=== PATIENT | female | born 1975 | race Caucasian/White ===

== ENCOUNTER 2020-10-06 08:31 | Emergency (ER) | payer OTHER, SELFPAY ==
[2020-10-06 08:32] VITALS: BP 123/103; PULSE 89; RESP 18; TEMP 36.4; O2SAT 99; BMI 51.2
--- NOTE | 2020-10-06 08:35 | NURSING ---
NO OLD EKGS
--- NOTE | 2020-10-06 08:40 | NURSING ---
NO OLD EKGS
--- NOTE | 2020-10-06 08:58 | EKG12_ITS ---
Test Reason : CP Blood Pressure : / mmHG Vent. Rate : 083 BPM Atrial Rate : 083 BPM P-R Int : 170 ms QRS Dur : 076 ms QT Int : 374 ms P-R-T Axes : 038 015 030 degrees QTc Int : 439 ms Normal sinus rhythm with sinus arrhythmia Normal ECG Confirmed by LELAND BATRES, MARIBEL ([id number]), writer editor EVI DURHAM ([id number]) on 10/09/2020 9:23:51 AM Referred By: JAELYN Confirmed By:MARIBEL HA MD
--- NOTE | 2020-10-06 09:05 | NURSING ---
NO OLD EKGS
[2020-10-06 09:12] VITALS: O2SAT 99
[2020-10-06] MEDS: Aspirin 81 MG TAB.CHEW 324 MG PO (09:24)
[2020-10-06 09:27] LABS: Absolute Lymphocyte Count 3.03 X10^3/uL (0.83-4.51); Absolute Neutrophil Count 3.9 X10^3/uL (2.0-7.7); Basophil# 0.02 X10^3/uL; Basophil% 0.3 % (0-1); Eosinophil# 0.08 X10^3/uL; Hematocrit 41.8 % (37-47); Hemoglobin 13.6 g/dL (12.0-15.0); Lymphocyte # 3.03 X10^3/ul (4.0); Lymphocyte % 39.6 % (19-41); Mean Corp Hgb Conc 32.5 g/dL (32-36); Mean Corpuscular Hgb 29.2 pg (27.0-32.0); Mean Corpuscular Volume 89.9 fL (81-99); Mean Platelet Vol. 9.6 fl (6.2-12.0); Monocyte# 0.55 X10^3/uL; Monocyte% 7.2 % (0-10); NRBC Flagged by Analyzer 0 % (0-5); Neutrophil # 3.94 X10^3/uL (2.7-7.7); Neutrophil % 51.4 % (47-70); Platelet Count 274 K/mm3 (150-450); RBC Distribution Width CV 12.4 % (11.6-14.6); RBC Distribution Width SD 40.9 fl (35.1-43.9); Red Blood Count 4.65 M/mm3 (4.2-5.4); White Blood Count 7.7 K/mm3 (4.4-11.0)
--- NOTE | 2020-10-06 09:40 | RAD_ITS ---
STUDY: X-RAY CHEST REASON FOR EXAM: Female, 45 years old. CHEST PAIN X 3 WEEKS. PT THOUGHT IT WAS A PULLED MUSCLE BUT STATES PAIN IS WORSENING. WHILE STANDING FOR XRAY PT WAS SOB AND DIZZY. TECHNIQUE: PA and lateral views of the chest. COMPARISON: None. FINDINGS: EKG electrodes are seen. The lungs are clear and expanded. There is no demonstrated pleural abnormality. Normal size heart. Normal mediastinum and marco antonio. Normal visualized pulmonary arteries. Normal visualized aortic arch and descending thoracic aorta. Normal visualized thoracic spine. Normal visualized ribs, clavicles, and shoulders. There is no demonstrated abnormality of the visualized soft tissue structures of the upper abdomen. RAD/Chest PA and Lateral IMPRESSION: Normal x-ray examination of the chest. Electronically Signed: Maury Flanagan MD at 10:12 EST , Service support ,
[2020-10-06 09:45] LABS: Anion Gap 6 (5-15); BUN 15 mg/dL (7-18); BUN/Creat Ratio 20.2 RATIO (10-20); Calcium,Total 8.9 mg/dL (8.5-10.1); Chloride 105 mmol/L (98-107); Creatinine, Serum 0.74 mg/dL (0.55-1.02); EST Glomerular Filtration Rate 90 mL/min (>60); Est Glom Filt Rate - Afr Amer 109 mL/min (>60); Estimated Creatinine Clearance 77.53 ml/min; Glucose 99 mg/dL (74-106); Potassium 3.8 mmol/L (3.5-5.1); Sodium Level 138 mmol/L (136-145)
--- NOTE | 2020-10-06 10:06 | ED.VIS.CHEST ---
History of Present Illness Chief Complaint: Chest Pain Informant: Patient Narrative: Patient presenting for evaluation secondary to chest pain. Patient states that over the course of the last 2 weeks she has been dealing with pain in her chest. She describes it as a sharp type pain. She reports that this does get somewhat worse with palpation, specific movements, as well as exertion. It is associated with some shortness of breath. Patient denies any palpitations. Patient denies any febrile type symptoms, cough, nausea, vomiting, diarrhea associated with this. Patient denies that she has any personal history of heart disease hypertension hyperlipidemia diabetes or smoking. She did have a brother that had a stroke a couple years ago, but no family history of heart disease. Patient has never had a stress test or heart cath. She denies any DVT or PE risk factors. Review of systems otherwise negative. Past Medical History - Allergies and Home Meds Allergies/Adverse Reactions: Allergies egg Allergy (Verified 10/06/20 08:35) Other prednisone Adverse Reaction (Verified 10/06/20 08:35) Nausea/Vom/Diarrhea Primary Care Physician: Mike Mercado MD [Primary Care Provider] - 3-5 Days Prior records reviewed: Yes Past Medical History: - - Denies past medical history Lives: Spouse/ Significant Other Smoking Status: Never smoker Alcohol: None Drugs: None Review of Systems All systems negative except as indicated General: Denies: Chills, Fever, Sweats Eyes: Denies: Visual changes - bilaterally, Diplopia ENT: Denies: Rhinorrhea, Sore throat Cardiovascular: Reports: Chest pain Respiratory: Reports: Dyspnea Gastrointestinal: Denies: Abdominal pain, Nausea, Vomiting, Diarrhea, Melena, Hematochezia Genitourinary: Denies: Dysuria, Hematuria, Frequency Musculoskeletal: Denies: Back pain, Extremity Pain Skin: Denies: Rash, Wounds Neurological: Denies: Headache, Weakness, Numbness Physical Exam Vital Signs/Narrative: Vital Signs Temp Pulse Resp BP Pulse Ox 10/06/20 09:12 99 10/06/20 08:32 97.6 F L 89 18 123/103 H 99 Inital Vital Signs reviewed: Yes General: Well nourished, Well developed, Obese, No Acute Distress Head: Normocephalic, Atraumatic Eyes: Perrl, EOMI ENT: Moist mucous membranes, No rhinorrhea Neck: Supple, Nontender Cardiovascular: Regular rate, Regular rhythm, No murmurs Respiratory: No distress, CTA bilaterally, Chest nontender Abdomen: Soft, Nontender, Nondistended, Normal bowel sounds Back: Nontender, Normal Inspection Extremities: Nontender, No edema Skin: Normal color, No rash Neurological: Alert, Oriented x3, Cranial nerves II-XII grossly intact, Normal Strength, Normal Sensation Psychological: Normal affect, Normal Mood Diagnostic/Tx/Re-eval Clinical Impression(s) from Imaging Studies Chest X-Ray 10/06/20 09:40 IMPRESSION: Normal x-ray examination of the chest. Electronically Signed: Maury Flanagan MD at 10:12 EST , Service support , Laboratory Data 10/06/20 10/06/20 10/06/20 09:20 09:20 10:05 WBC 7.7 RBC 4.65 Hgb 13.6 Hct 41.8 MCV 89.9 MCH 29.2 MCHC 32.5 RDW Std Deviation 40.9 RDW Coeff of Rebecca 12.4 Plt Count 274 MPV 9.6 Immature Gran % (Auto) 0.500 Neut % (Auto) 51.4 Lymph % (Auto) 39.6 [place] % (Auto) 7.2 Eos % (Auto) 1.0 Baso % (Auto) 0.3 Absolute Neuts (auto) 3.9 Absolute Lymphs (auto) 3.03 Nucleated RBC % 0 Sodium 138 Potassium 3.8 Chloride 105 Carbon Dioxide 27.0 Anion Gap 6 BUN 15 Creatinine 0.74 Estim Creat Clear Calc 77.53 Est GFR (MDRD) Af Amer 109 Est GFR (MDRD) Non-Af 90 BUN/Creatinine Ratio 20.2 H Glucose 99 Calcium 8.9 Troponin I < 0.015 Urine Color Straw Urine Clarity Clear Urine pH 6.5 Ur Specific [place] 1.005 Urine Protein Negative Urine Glucose (UA) Normal Urine Ketones Negative Urine Occult Blood Negative Urine Nitrite Negative Urine Bilirubin Negative Urine Urobilinogen Normal Ur Leukocyte Esterase Negative Urine RBC 0 SEEN Urine WBC 0 SEEN Ur Squamous Epith Cells 0-5 SEEN Urine Bacteria 0 SEEN Urine Mucus 0 SEEN - EKG Initial EKG Interpretation: - - Sinus rhythm 83 with sinus arrhythmia noted, isoelectric ST segments normal T waves normal UT and QTc intervals no evidence of acute ischemia or arrhythmia. - Medical Decision Making Patient presented for evaluation secondary to chest pain. EKG found to be unremarkable. 2 view chest x-ray by my personal review as well as radiology shows no acute pathology. CBC chemistry troponin unremarkable, urinalysis found to be unremarkable. Maximum heart score in this patient is 2, she does not have any DVT or PE risk factors. No believe that she requires admission or further observation. Patient was informed of her findings, she was given reassurance, patient follow-up with primary care for further work-up and treatment. ED Disposition - Plan for ED Patient: Disposition: Home or Assisted Living Diagnosis: Chest pain Instructions: ED Chest Pain, Uncertain Cause Referrals: Mike Mercado MD [Primary Care Provider] - 3-5 Days
[2020-10-06 10:10] LABS: Bacteria 0 SEEN /hpf (None Seen); Mucous, Urine 0 SEEN /hpf (<or=2+); Red Blood Cells-Urine 0 SEEN /hpf (0-5); White Blood Cells 0 SEEN /hpf (0-5)
[2020-10-06 10:12] LABS: Color, Urine Straw (Yellow); Glucose, Dipstick Normal (Normal); Ketone-Dipstick Negative (Negative); Leukocyte Esterase-Dipstick Negative /ul (Negative); Nitrite-Dipstick Negative (Negative); Occult Blood-Urine Negative /ul (Negative); Protein-Dipstick Negative (Negative); Specific Gravity, Urine 1.005 (1.002-1.030); Urine Bilirubin Dipstick Negative (Negative); Urine Clarity Clear (Clear); Urine Urobilinogen Normal (Normal); Urine pH 6.5 (5.0 - 8.0)
[2020-10-06 10:27] LABS: Squamous Epithelial Cells - UA 0-5 SEEN /hpf (5-10)
[2020-10-06 11:00] VITALS: BP 147/89; PULSE 73; RESP 15; O2SAT 98
== END 2020-10-06 11:14 | disposition home or self-care (01) ==
PROVIDERS: Emergency Provider Emergency Medicine; PCP Family Medicine
DX: R07.89 Other chest pain (principal); R06.00 Dyspnea, unspecified; E66.9 Obesity, unspecified
CPT/HCPCS: 71046; 80048; 81001; 84484; 85025; 87426; 93005; 99285; A4216

== ENCOUNTER 2023-09-27 20:46 | Emergency (ER) | payer OTHER, SELFPAY ==
[2023-09-27 20:48] VITALS: BP 168/96; PULSE 97; RESP 16; TEMP 36.4; O2SAT 100; BMI 48.9
--- NOTE | 2023-09-27 23:30 | EDS_ITS ---
HPI History of Present Illness Chief Complaint: Rash Informant: patient Onset/Context/Timing Onset: Days (4) Context: Gradual Onset Timing: Continuous Quality: Burning Location: Left chest Worsened by: Palpation Relieved by: Heat Narrative Narrative: Patient presents with rash and pain to the left side of her chest. Patient states that she noted some pain over left side of her chest that radiated around her chest and into her back 4 days ago. Patient states that yesterday she noticed a rash over the same area. Patient states it is red. Patient states it is mainly over the left side of her chest. Patient states it is worse when anything touches it. Patient describes it as burning. Patient states it got better with a hot shower. Patient admits to some subjective chills but denies any fevers. Patient admits to some nausea but denies any vomiting. Patient admits to some urinary frequency and states her urine is cloudy. Patient states she does have a history of urinary tract infections. [facility] Medical History (Updated 09/27/23 @ 23:[address] Erickson Smith DO) Fibromyalgia Home Medications valacyclovir 1 gram tablet (Valtrex) 1,000 mg PO Q8H #21 tabs 09/27/23 [Rx Last Taken Unknown] Allergy/AdvReac Type Severity Reaction Status Date / Time egg Allergy Other Verified 09/27/23 20:47 prednisone AdvReac Nausea/Vom/ Verified 09/27/23 20:47 Diarrhea Surgical History H/O: hysterectomy Social History Smoking Status: Never smoker ROS ROS ED Constitutional Constitutional ED: Reports chills; Denies fever(s) Eyes Eyes: Denies blurry vision or change in vision ENT ENT ED: Denies rhinorrhea or sore throat Cardiovascular Cardiovascular: Denies chest pain or palpitations Respiratory/Chest Respiratory/Chest: Denies cough or dyspnea Gastrointestinal Gastrointestinal: Reports nausea; Denies vomiting Genitourinary Genitourinary ED: Reports urinary frequency; Denies dysuria or hematuria Musculoskeletal Musculoskeletal: Reports back pain; Denies neck pain Integumentary Reports rash; Denies abscess Neurologic Neurologic: Denies headache(s) or weakness Allergic/Immunologic Allergic/Immunologic ED: Denies mouth swelling or urticaria EXAM Physical Exam Const Vital Signs: 09/27/23 20:48 Temperature 97.5 F L Temperature Source Temporal Pulse Rate 97 Respiratory Rate 16 Blood Pressure 168/96 H Blood Pressure Mean 120 Pulse Ox 100 Positive well nourished and well developed General Appearance ED: well developed and NAD HEENT Reports moist mucous membranes Neck supple and no JVD Resp normal respiratory effort and clear to auscultation bilaterally Cardio regular rate and regular rhythm GI non-tender and non-distended Palpation: soft Neuro oriented x3, CN's II-XII intact bilaterally and no sensory deficits noted Sensorium / Orientation: alert Motor Exam: strength 5/5 throughout Psych mental status grossly normal Skin Skin Narrative: There is an erythematous patchy rash along the left T6 dermatome. There are few vesicles noted. There are no pustules noted. There is tenderness with light palpation along the T6 dermatome. There is no active discharge or drainage noted. MDM MDM MDM Narrative Medical decision making narrative: Patient was advised that this is varicella-zoster. Patient is concerned about a possible urinary tract infection. Urinalysis will be obtained to assess for urinary tract infection. Treatment and Re-Evaluation :: Patient was started on Valtrex. Patient was given her first dose here. Patient was instructed to follow-up with her primary care physician in 5 to 7 days. Patient was instructed return if worse in any way. Patient understood and was agreeable with the plan. All questions were answered. Discharge Plan Triage Chief Complaint: Rash ED Provider: Erickson Smith Dx/Rx/DC Orders Clinical Impression: Varicella-zoster infection Instructions: ED Shingles (Herpes Zoster) Prescriptions: New valacyclovir [Valtrex] 1 gram tablet 1,000 mg PO Q8H Qty: 21 0RF Primary Care Provider: Mike Mercado Referrals: Mike Mercado MD [Primary Care Provider] - 5-7 Days Disposition Disposition: Home, Self Care
--- OUTSIDE RECORDS SUMMARY | 2023-09-27 23:49 | XMS RPT_ITS | CCD ---
Author Name Unknown Address [address] [facility] [address] [place] [address] Organization [facility] Care Team Providers Care Airport Operations Specialist Name Role Phone Jess BATRES, Manda Wall Primary Care Provider MANDA MERCADO Referring MANDA Matthew Primary Care Unavailab MANDA Daniels Attending UnavailMANDA Hannon Primary Care Unavailab le Allergies Allergy Classification Reported Allergen(s) Allergy Type Date of Onset Reaction(s) Facility (6 sources) Banana Extract; Translations: [BANANA] Drug Allergy 2 GI Upset [facility] Work Phone: (6 sources) egg extract; Translations: [EGG] Drug Allergy 2 GI Upset [facility] Work Phone: (6 sources) Lactose; Translations: [LACTOSE] Drug Allergy 2 Intolerance [facility] Work Phone: (6 sources) predniSONE; Translations: [PREDNISONE] Drug Allergy 9 Other: See Comments [facility] Work Phone: (5 sources) ENVIRONMENTAL [Other] Propensity to adverse reactions 5 [facility] Work Phone: (1 source) OTHER; Translations: [OTHER] Propensity to adverse reactions (disorder) 5 [facility] Repository Medications Current Medications Medication Drug Class(es) Dates Sig (Normalized) Sig (Original) lansoprazole 30 mg delayed release oral capsule (3 sources) Proton Pump Inhibitor Start: 10-22-2022 End: 04-20-2023 take 1 capsule by mouth once daily before breakfast lansoprazole (PREVACID) 30 mg capsule Take 1 capsule by mouth daily before breakfast. 1/2 hr before meal. 90 capsule 1 10/22/2022 04/20/2023 Active Completed/Discontinued Medications Medication Drug Class(es) Dates Sig (Normalized) Sig (Original) acyclovir 400 mg oral tablet (3 sources) Herpesvirus Nucleoside Analog DNA Polymerase Inhibitor, Herpes Simplex Virus Nucleoside Analog DNA Polymerase Inhibitor, Herpes Zoster Virus Nucleoside Analog DNA Polymerase Inhibitor Start: 03-18-2021 End: 10-22-2022 take 1 tablet by mouth three times daily as needed, then take 1 tablet by mouth three times daily as needed acyclovir (ZOVIRAX) 400 mg tablet Indications: HSV-1 (herpes simplex virus 1) infection Take 1 tablet by mouth three times daily as needed. Take 1 tablet by mouth three times a day for 10 days as needed 30 tablet 0 03/18/2021 10/22/2022 Discontinued Problems Active Problems Problem Classification Problem Date Documented Date Episodic/Chronic Anxiety disorders (7 sources) Generalized anxiety disorder; Translations: [Generalized anxiety disorder] Onset: 11-24-2020 11-24-2020 Chronic Diseases of white blood cells (1 source) Neutropenia; Translations: [Neutropenia, unspecified] Chronic Esophageal disorders (7 sources) Gastroesophageal reflux disease; Translations: [Gastro-esophageal reflux disease without esophagitis] Onset: 06-28-2019 06-28-2019 Chronic Influenza (1 source) Influenza-like illness; Translations: [Influenza due to unidentified influenza virus with other respiratory manifestations] Episodic Nutritional deficiencies (4 sources) Vitamin D deficiency; Translations: [Vitamin D deficiency, unspecified] Onset: 10-25-2022 Chronic Other bone disease and musculoskeletal deformities (1 source) Costal chondritis; Translations: [Chondrocostal junction syndrome [Tietze]] Episodic Other connective tissue disease (5 sources) Fibromyalgia; Translations: [Fibromyalgia] 06-28-2019 Episodic Other inflammatory condition of skin (3 sources) Scalp psoriasis; 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, unspecified] Onset: 10-22-2022 10-22-2022 Chronic Other liver diseases (1 source) Aspartate aminotransferase serum level raised; Translations: [Elevated AST (SGOT)] Episodic Other nutritional; endocrine; and metabolic disorders (5 sources) Intolerance to lactose; Translations: [Lactose intolerance, unspecified] Onset: 07-03-2019 07-03-2019 Chronic Other nutritional; endocrine; and metabolic disorders (4 sources) Morbid obesity; Translations: [Morbid (severe) obesity due to excess calories] Onset: 10-22-2022 10-22-2022 Chronic Other nutritional; endocrine; and metabolic disorders (1 source) Morbid (severe) obesity due to excess calories; Translations: [Morbid obesity (HCC)] Onset: 10-22-2022 Chronic Other screening for suspected conditions (not mental disorders or infectious disease) (2 sources) Patient encounter status; Translations: [Encounter for screening mammogram for malignant neoplasm of breast] Episodic Other skin disorders (7 sources) Lichen sclerosus et atrophicus; Translations: [Circumscribed scleroderma] Onset: 02-21-2012 02-21-2012 Chronic Past or Other Problems Problem Classification Problem Date Documented Da te Episodic/Chronic Other female genital disorders (5 sources) Disorder of female genital system; Translations: [Unspecified condition associated with female genital organs and menstrual cycle] Onset: 03-23-2012 03-23-2012 Episodic Other gastrointestinal disorders (5 sources) Constipation; Translations: [Other constipation] Onset: 07-03-2019 07-03-2019 Episodic Viral infection (7 sources) Recurrent herpes simplex labialis; Translations: [Herpesviral vesicular dermatitis] Onset: 10-22-2022 10-22-2022 Episodic Results Test Name Value Interpretation Reference Range Facil ity Vital Signs Date Time Vital Sign Value Performing Clinician Sunday castillo 10-22-2022 07:57-0500 Body height 160 cm Manda Mercado MD Work Phone: [facility] 10-22-2022 07:57-0500 Body weight 116.39 kg Manda Mercado MD Work Phone: [facility] 10-22-2022 07:57-0500 Diastolic blood pressure 74 mm[Hg] Manda Mercado MD Work Phone: [facility] 10-22-2022 07:57-0500 Heart rate 91 /min Manda Mercado MD Work Phone: [facility] 10-22-2022 07:57-0500 Respiratory rate 16 /min Manda Mercado MD Work Phone: [facility] 10-22-2022 07:57-0500 SaO2% (BldA) [Mass fraction] 97 % Manda Mercado MD Work Phone: [facility] 10-22-2022 07:57-0500 Systolic blood pressure 108 mm[Hg] Manda Mercado MD Work Phone: [facility] 09-01-2022 19:01-0500 Body temperature 98.8 [degF] Jorgito Horta MD Work Phone: [facility] 09-01-2022 19:01-0500 Body weight 115.39 kg Jorgito Horta MD Work Phone: [facility] 09-01-2022 19:01-0500 Diastolic blood pressure 82 mm[Hg] Jorgito Horta MD Work Phone: [facility] 09-01-2022 19:01-0500 Heart rate 93 /min Jorgito Horta MD Work Phone: [facility] 09-01-2022 19:01-0500 Respiratory rate 20 /min Jorgito Horta MD Work Phone: [facility] 09-01-2022 19:01-0500 SaO2% (BldA) [Mass fraction] 97 % oJrgito Horta MD Work Phone: [facility] 09-01-2022 19:01-0500 Systolic blood pressure 128 mm[Hg] Jorgito Horta MD Work Phone: [facility] Encounters Encounter Date Encounter Type Care Provider Facility Start: 09-07-2023 ambulatory Manda Mercado MD Work Phone: [facility] [place] Start: 10-25-2022 Telephone encounter Mike Mercado MD Work Phone: [facility] [place] Procedures Date Procedure Procedure Detail Performing Clinician Start: 10-22-2022 Lipid 1996 panel - S saima or Plasma Manda Mercado MD Work Phone: Start: 09-01-2022 COVID WITH FLUA+B, ROUTINE Jorgito Horta MD Work Phone: Start: 07-04-2019 Mammography Jorgito esparza MD Work Phone: Start: 07-03-2019 Colonoscopy Jorgito esparza MD Work Phone: Plan of Treatment Date Care Activity Detail Author Start: 06-28-2029 Urine microalbumin profile [facility] Start: 10-22-2027 Lipid panel Lipid Screening [facility] Start: 10-22-2027 LIPID SCREEN LIPID SCREEN [facility] Start: 11-24-2025 LIPID SCREEN LIPID SCREEN [facility] Start: 10-22-2025 DIABETES SCREEN DIABETES SCREEN [facility] Start: 10-22-2025 Diabetes Screening Diabetes Screenin g [facility] Start: 07-03-2024 Colonoscopy COLONOSCOPY [facility] Start: 07-03-2024 COLORECTAL CANCER SCREENING COLORECTAL CANCER SCREENING [facility] Start: 07-03-2024 Screening for malign ant neoplasm of colon [facility] Start: 11-25-2023 DIABETES SCREEN [facility] Start: 10-22-2023 COVID-19 VACCINE (#1) COVID-19 VACCI NE (#1) [facility] Immunizations Immunization Date Immunization Notes Care Provider Fa osiel 06-28-2019 tetanus toxoid, redu mandi diphtheria toxoid, and acellular pertussis vaccine, adsorbed Jorgito Horta MD Work Phone: [facility] 11-10-2016 influenza virus vaccine, unspecified formulation Manda Mercado MD Work Phone: [facility] 11-10-2014 tetanus and diphther ia toxoids, not adsorbed, for adult use Jorgito Horta MD Work Phone: [facility] Payers Date Payer Category Payer Private Health Insurance [employer] OAP [id number] 2020-Present [phone] [address] [place] [id number] Open Access [id number] 2020 Private Health Insurance [id number] Social History Date Type Detail Facility Start: 09-01-2022 Tobacco smoking stat us NHIS Ex-smoker [facility] End: 03-23-1993 History of tobacco use Current smoker [facility] End: 03-23-1993 History of tobacco use Cigarette Smoker [facility] Start: 09-01-2022 Tobacco use and exposure Smoke less tobacco non-user [facility] Start: 09-01-2022 End: 10-25-2022 Alcohol intake Current drinker of alcohol (finding) [facility] Start: 10-07-2020 End: 10-19-2022 History SDOH Alcohol Frequency 2 [facility] Start: 10-07-2020 End: 10-19-2022 History SDOH Alcohol Std Drinks 1 [facility] Start: 10-07-2020 History SDOH Social Connections Phone 98 [facility] Start: 10-07-2020 End: 10-19-2022 History SDOH Social Connections Living 3 [facility] Start: 10-07-2020 End: 10-19-2022 History SDOH Financial 5 [facility] Start: 10-06-2020 Education 21 [facility] Start: 06-28-2019 Alcohol Comment rarely [facility] Start: 1975 Sex Assigned At Female C [facility] Start: 10-22-2022 Alcohol Comment once per month [facility] Start: 10-18-2022 End: 04-08-2023 History of Social function [facility] Start: 10-18-2022 End: 04-08-2023 Social connection and isolation panel [facility] Do you belong to any clubs or organizations such as jainism groups, unions, fraternal or athletic groups, or school groups? No [facility] Are you now , , , , never or living with a partner? [facility] How often to you hav e a drink containing alcohol? Monthly or less [facility] How many standard dr inks containing alcohol do you have on a typical day? 1 or 2 [facility] How often do you hav e 6 or more drinks on 1 occasion? Never [facility] How hard is it for y ou to pay for the very basics like food, housing, medical care, and heating Not hard at all [facility] Do you feel stress - tense, restless, nervous, or anxious, or unable to sleep at night because your mind is troubled all the time - these days [OSQ] To some extent [facility] (I/We) worried morgan er (my/our) food would run out before (I/we) got money to buy more. Never true [facility] Start: 10-06-2020 Gender identity Identifies as female gender (finding) [facility] Start: 10-06-2020 Sexual orientation Heterosexual (ruth reina) [facility] Clinical Notes 08-29-2000 to 09-07-2023 Telephone Encounter - Lalita Hagan LPN - 10/25/2022 5:00 PM ESTTelephone Encounter - Manda Mercado MD - 10/25/2022 3:43 PM Ida Mercado MD - 10/22/2022 8:00 AM EST Note Date & Type Note Facility 09-07-2023 Note Patient Outreach (IN [facility]) ZUNILDA LEON ([id number]) 1975 F Date Time Provider Department 09/07/23 MANDA EMRCADO During your visit today, we recorded the following information about you: Allergies As of Date: 09/07/2023 Noted Allergy Reaction BANANA 02/21/2012 8 - GI Upset EGGS (EGG) 02/21/2012 8 - GI Upset ENVIRONMENTAL [Other] 08/27/2005 LACTOSE 02/21/2012 5 - Intolerance PREDNISONE 06/28/2019 14 - Other: See Comments Comments: Black stools Date Reviewed: 10/22/2022 Reviewed by: Minnie Silva LPN - Fully Assessed Visit Diagnosis:Encounter for screening mammogram for breast cancer [Z12.31] Order(s):MONY SCREENING [[id number]] Order #: [id number] FUTURE Prescriptions as of 09/12/2023 - clobetasol (TEMOVATE) 0.05 % ointment Apply 1 application to affected area twice daily. TO AFFECTED AREA. - lansoprazole (PREVACID) 30 mg capsule Take 1 capsule by mouth daily before breakfast. 1/2 hr before meal. Problem List As Of Date 09/07/2023 Noted Resolved Lichen sclerosus [L90.0] 02/21/2012 Genital atrophy of female [N94.9] 03/23/2012 Crohn's disease (HCC) [K50.90] 08/29/2000 07/03/2019 Fibromyalgia [M79.7] Esophageal reflux [K21.9] Other constipation [K59.09] 07/03/2019 Lactose intolerance [E73.9] 07/03/2019 Generalized anxiety disorder [F41.1] Morbid obesity (HCC) [E66.01] 10/22/2022 Recurrent cold sores [B00.1] 10/22/2022 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] 10/22/2022 Vitamin D insufficiency [E55.9] 10/25/2022 Encounter Status:Closed by [id number] on 09/12/23 [facility] 10-25-2022 Miscellaneous Notes Patient notified of results and recommendations. Voices understanding. Lalita Haagn LPN Low bilirubin is benign finding and does not need further workup. She did have a very slight elevation in her AST with other LFTs in normal range. Recommend limiting alcohol and tylenol. Recheck in 3 months. Recommend she start 2,000 units of vitamin D supplement OTC on a daily basis for insufficiency. Neutrophils were low on her CBC with normal WBC. I would recheck this in 2-3 months as well. Other labs unremarkable. No other changes to regimen at this time. Patient calls to review lab results viewed in . Reviewed results with patient. Patient has concerns of elevation of AST at 38 and bilirubin of less than 0.2. Patient also asking provider what he recommends for Vitamin D that is low at 25.7. Patient thought maybe low vitamin D level could be cause for inability to lose any further weight. Please review and advise, Esha Flores RN documented in this encounter [facility] 10-22-2022 Note HNO ID: [id number] Author: Manda Mercado MD Service: ? Author Type: Physician Type: Progress Notes Filed: 10/28/2022 10:25 AM Note Text: Chief Complaint Patient presents with: Physical: Wanting to discuss weight loss options. HPI Zunilda Leon is a 47 year old female who presents here today for Above Complaints. Patient has been in good health without hospitalizations or ER visits. GERD: patient has been taking OTC Prilosec since she ran out of her Prevacid 3-6 months ago. Working well previously. Gets reflux if she misses medication. Requesting clobetasol for her lichen sclerosus. [facility] Has not been in for check up since 2018. History of hysterectomy for DUB, so does not need pap smear. Needing refill on her acyclovir for recurrent cold sores. Getting them twice per month. No lesions today. Weight down about 25 lbs since her last OV in 2020. States that she is walking 7,000-10,000 steps per day and cutting back on carbs and sugar. In a program through work to help with weight loss, meeting with dietitian on a weekly basis since last October. PHQ-2 / Depression screen She in the past two weeks denies having felt down, depressed, hopeless or with little interest or pleasure in doing things. Screening mammogram ordered, but not scheduled. States that she had bruising Up to date on colon cancer screening with last colonoscopy in 2019. Has history of chron's disease and was found to have signs of chronic active colitis consistent with IBD in her transverse colon. Colonoscopy obtained by Dr. Espinal. Due for repeat colonoscopy in 2023. Denies hematochezia, abdominal pain, diarrhea. Has egg allergy with GI upset, so is refusing influenza vaccine. Patient also refusing COVID vaccination. Past medical history, appointments, medications, allergies reviewed. Previous Medical History PAST MEDICAL HISTORY Diagnosis Date Crohn's disease (HCC) 2000 crohns disease, rectal bleeding, resolved after hysterectomy. Depression Dysfunctional uterine bleeding 2006 s/p hysterectomy Dysmenorrhea Eczema Esophageal reflux Gastroesophageal reflux Fibromyalgia Generalized anxiety disorder Lactose intolerance Lichen sclerosus Morbid obesity (HCC) Other acne Acne Recurrent cold sores Scalp psoriasis Previous Surgical History PAST SURGICAL HISTORY Procedure Laterality Date COLONOSCOPY 2009 multiple for crohns disease. [place]. Benign polyp COLONOSCOPY 09/21/2005 active colitis at distal transverse colon COLONOSCOPY around 2007. [place]. Normal. COLONOSCOPY 01/15/2004 severe acute and chronic colitis, sml internal hemorrhoids COLONOSCOPY 03/12/2003 hyperplastic polyp x2, colitis EGD 09/21/2005 chronic reflux like symptoms, normal looking distal esophagus LIG/TRNSXJ FLP TUBE ABDL/VAG APPR UNI/BI Tubal ligation PAST SURGICAL HISTORY OF wisdom teeth PAST SURGICAL HISTORY OF 2007 hysterectomy lavhbso PAST SURGICAL HISTORY OF tonsilectomy Family History FAMILY HISTORY Problem Relation Age of Onset Arthritis Mother Hypertension Father Lipids Father Rheumatologic disease Father RA Rheumatologic disease Brother RA Stroke Brother Colon Cancer Maternal Grandmother Emphysema Maternal Grandfather Alcohol/Drug Maternal Grandfather alcoholism Coronary Artery Disease Paternal Grandmother Diabetes Paternal Grandmother Stroke Paternal Grandmother Hypertension Paternal Grandfather Coronary Artery Disease Paternal Grandfather Diabetes Paternal Grandfather Stroke Paternal Grandfather Cervical Cancer Maternal Aunt Patient Allergies ALLERGIES Allergen Reactions Banana GI Upset Eggs [Egg] GI Upset Environmental [Othe* Lactose Intolerance Prednisone Other: See Comments Black stools Current Medications Current Outpatient Medications on File Prior to Visit Medication Sig acyclovir (ZOVIRAX) 400 mg tablet Take 1 tablet by mouth three times daily as needed. Take 1 tablet by mouth three times a day for 10 days as needed clobetasol (TEMOVATE) 0.05 % ointment Apply 1 application to affected area twice daily. TO AFFECTED AREA. No current facility-administered medications on file prior to visit. Social History Social History Tobacco Use Smoking status: Former Types: Cigarettes Quit date: 03/23/1993 Years since quittin.6 Smokeless tobacco: Never Vaping Use Vaping Use: Never used Substance Use Topics Alcohol use: Yes Comment: rarely Drug use: Never Review of Symptoms REVIEW OF SYSTEMS GENERAL: No weight loss, malaise or fevers HEENT: Negative for frequent or significant headaches, No changes in hearing or vision, no nose bleeds or other nasal problems NECK: Negative for lumps, goiter, pain and significant neck swelling RESPIRATORY: Negative for cough, hemoptysis, wheezing, COPD, dyspnea or shortness of breath CARDIOVASCULAR: Negative for ch (more content not included)... [facility] 10-22-2022 History of Presen t illness Narrative Chief Complaint Patient presents with: Physical: Wanting to discuss weight loss options. HPI Zunilda Leon is a 47 year old female who presents here today for Above Complaints. Patient has been in good health without hospitalizations or ER visits. GERD: patient has been taking OTC Prilosec since she ran out of her Prevacid 3-6 months ago. Working well previously. Gets reflux if she misses medication. Requesting clobetasol for her lichen sclerosus. [facility] Has not been in for check up since 2018. History of hysterectomy for DUB, so does not need pap smear. Needing refill on her acyclovir for recurrent cold sores. Getting them twice per month. No lesions today. Weight down about 25 lbs since her last OV in 2020. States that she is walking 7,000-10,000 steps per day and cutting back on carbs and sugar. In a program through work to help with weight loss, meeting with dietitian on a weekly basis since last October. PHQ-2 / Depression screen She in the past two weeks denies having felt down, depressed, hopeless or with little interest or pleasure in doing things. Screening mammogram ordered, but not scheduled. States that she had bruising Up to date on colon cancer screening with last colonoscopy in 2018. Has history of chron's disease and was found to have signs of chronic active colitis consistent with IBD in her transverse colon. Colonoscopy obtained by Dr. Espinal. Due for repeat colonoscopy in 2023. Denies hematochezia, abdominal pain, diarrhea. Has egg allergy with GI upset, so is refusing influenza vaccine. Patient also refusing COVID vaccination. Past medical history, appointments, medications, allergies reviewed. Previous Medical History PAST MEDICAL HISTORY Diagnosis Date Crohn's disease (HCC) 2000 crohns disease, rectal bleeding, resolved after hysterectomy. Depression Dysfunctional uterine bleeding 2006 s/p hysterectomy Dysmenorrhea Eczema Esophageal reflux Gastroesophageal reflux Fibromyalgia Generalized anxiety disorder Lactose intolerance Lichen sclerosus Morbid obesity (HCC) Other acne Acne Recurrent cold sores Scalp psoriasis Previous Surgical History PAST SURGICAL HISTORY Procedure Laterality Date COLONOSCOPY 2009 multiple for crohns disease. [place]. Benign polyp COLONOSCOPY 09/21/2005 active colitis at distal transverse colon COLONOSCOPY around 2007. [place]. Normal. COLONOSCOPY 01/15/2004 severe acute and chronic colitis, sml internal hemorrhoids COLONOSCOPY 03/12/2003 hyperplastic polyp x2, colitis EGD 09/21/2005 chronic reflux like symptoms, normal looking distal esophagus LIG/TRNSXJ FLP TUBE ABDL/VAG APPR UNI/BI Tubal ligation PAST SURGICAL HISTORY OF wisdom teeth PAST SURGICAL HISTORY OF 2007 hysterectomy lavhbso PAST SURGICAL HISTORY OF tonsilectomy Family History FAMILY HISTORY Problem Relation Age of Onset Arthritis Mother Hypertension Father Lipids Father Rheumatologic disease Father RA Rheumatologic disease Brother RA Stroke Brother Colon Cancer Maternal Grandmother Emphysema Maternal Grandfather Alcohol/Drug Maternal Grandfather alcoholism Coronary Artery Disease Paternal Grandmother Diabetes Paternal Grandmother Stroke Paternal Grandmother Hypertension Paternal Grandfather Coronary Artery Disease Paternal Grandfather Diabetes Paternal Grandfather Stroke Paternal Grandfather Cervical Cancer Maternal Aunt Patient Allergies ALLERGIES Allergen Reactions Banana GI Upset Eggs [Egg] GI Upset Environmental [Othe* Lactose Intolerance Prednisone Other: See Comments Black stools Current Medications Current Outpatient Medications on File Prior to Visit Medication Sig acyclovir (ZOVIRAX) 400 mg tablet Take 1 tablet by mouth three times daily as needed. Take 1 tablet by mouth three times a day for 10 days as needed clobetasol (TEMOVATE) 0.05 % ointment Apply 1 application to affected area twice daily. TO AFFECTED AREA. No current facility-administered medications on file prior to visit. Social History Social History Tobacco Use Smoking status: Former Types: Cigarettes Quit date: 03/23/1993 Years since quittin.6 Smokeless tobacco: Never Vaping Use Vaping Use: Never used Substance Use Topics Alcohol use: Yes Comment: rarely Drug use: Never Review of Symptoms REVIEW OF SYSTEMS GENERAL: No weight loss, malaise or fevers HEENT: Negative for frequent or significant headaches, No changes in hearing or vision, no nose bleeds or other nasal problems NECK: Negative for lumps, goiter, pain and significant neck swelling RESPIRATORY: Negative for cough, hemoptysis, wheezing, COPD, dyspnea or shortness of breath CARDIOVASCULAR: Negative for chest pain, leg swelling, hypertension, CHF or palpitations GI: No nausea, vomiting, or diarrhea : No history of dysuria, frequency or incontinence [employer]ER: Negative for abnormal vaginal bleeding, abnormal vaginal discharge MUSCULOSKELETAL: Negative for joint pain or swelling, back pain or muscle pain SKIN: See HPI NEURO: No history of headaches, syncope, paralysis, seizures or tremors EXAM: BP 108/74 Pulse 91 Resp 16 Ht 160 cm (5' 3 ) Wt 116.4 kg (256 lb 9.6 oz) LMP 01/16/2006 SpO2 97% BMI 45.45 kg/m General Appearance: Well appearing, alert, in no acute distress, well-hydrated, well nourished.. Skin: Skin color, texture, turgor normal, no suspicious rashes or lesions. Head: Normocephalic, no masses, lesions, tenderness or abnormalities. Eyes: Anicteric sclera. Pupils are equally round and reactive to light. Extraocular movements are intact. . Ears: External ears normal, canals clear. Oropharynx: Lips, mucosa, and tongue normal, teeth and gums normal, oropharynx normal. Neck: Supple, no adenopathy; thyroid symmetric, normal size, no bruits. Lungs: Lungs clear to auscultation. No wheezing, rhonchi, rales.. Heart: RRR without murmur, gallop, or rubs. No ectopy. Abdomen: Normal abdominal exam, Abdomen soft, non-tender. Bowel sounds normal. No masses, organomegaly. Extremities: No deformities, edema, skin discoloration, clubbing or cyanosis. Good capillary refill. V[employer]ER [employer]EDER: Patient deferred exam Musculoskeletal: No joint swelling, deformity, or tenderness. Health Maintenance List HEPATITIS B(1 of 3 - 3-dose series) Never done COVID-19 VACCINE(1) Never done MAMMOGRAM due on 07/04/2020 INFLUENZA(1) due on 04/29/2022 DEPRESSION ASSESSMENT Never done DIABETES SCREEN due on 11/25/2023 COLORECTAL CANCER SCREENING due on 07/03/2024 LIPID SCREEN due on 11/24/2025 DTAP,TDAP,TD(2 - Td or Tdap) due on 06/28/2029 HEPATITIS C SCREENING Completed HIV SCREENING Completed PAP TESTING Discontinued HPV TESTING Discontinued Data reviewed Component Latest Ref Rng & Units 11/24/2020 Total Cholesterol, Nonfasting <200 mg/dL 163 Triglycerides, Nonfasting <150 mg/dL 102 HDL Cholesterol, Nonfasting >39 mg/dL 53 LDL Cholesterol, Nonfasting <100 mg/dL 90 Non HDL Cholesterol, Nonfasting <130 mg/dL 110 VLDL Cholesterol, Nonfasting <30 mg/dL 20 Total Chol/HDL Ratio, Nonfasting <5.10 mg/dL 3.08 LDL/HDL Ratio, Nonfasting <2.54 mg/dL 1.70 HIV 12 Combo (Ag/Ab) Non Reactive Non Reactive HIV-1/2 AB Test Not Indicated HIV Interpretation Negative Hemoglobin A1C 4.3 - 5.6 % 5.4 Estimated Average Glucose mg/dL 108 TSH 0.270 - 4.200 uU/mL 2.590 Hep C Antibody IA Negative Negative ASSESSMENT/PLAN: 1. Annual physical exam - ICD9: V70.0, ICD10: Z00.00 (primary diagnosis) - Counseled on healthy diet and regular exercise - Calcium intake with supplements or by diet of 1000 mg/day for under 50, 9617-8862 mg/day for 50+ - Discussed need and benefit for weight loss. BMI 45.45 kg/(m^2) - Follow up for annual exam in one year - CBC + DIFF - COMP METABOLIC PANEL - HGB A1C - LIPID PANEL BASIC - TSH BLD - VITAMIN D 25 HYDROXY 2. Gastroesophageal reflux disease, unspecified whether esophagitis present - ICD9: 530.81, ICD10: K21.9 - Discussed lifestyle modifications including losing weight, limiting caffeine, and no meals three hours before sleep - Continue treatment with Prevacid 30 mg QD 3. Generalized anxiety disorder - ICD9: 300.02, ICD10: F41.1 In remission. Will monitor. 4. Morbid obesity (HCC) - ICD9: 278.01, ICD10: E66.01 Weight decreasing - Behavioral intervention 5. Recurrent cold sores - ICD9: 054.9, ICD10: B00.1 Will switch from Acyclovir to Valtrex for recurrent sores. Call if medication not effective. 6. Lichen sclerosus - ICD9: 701.0, ICD10: L90.0 Will refill steroid cream as requested. Recommended she follow up with [employer] for persistent rash since she is refusing exam today. 7. HSV-1 (herpes simplex virus 1) infection - ICD9: 054.9, ICD10: B00.9 See above. Manda Mercado MD documented in this encounter [facility] 09-29-2022 Note Patient Outreach (IN [facility]) ZUNILDA LEON ([id number]) 1975 F Date Time Provider Department 09/29/22 MANDA MERCADO During your visit today, we recorded the following information about you: Allergies As of Date: 09/29/2022 Noted Allergy Reaction BANANA 02/21/2012 8 - GI Upset EGGS (EGG) 02/21/2012 8 - GI Upset ENVIRONMENTAL [Other] 08/27/2005 LACTOSE 02/21/2012 5 - Intolerance PREDNISONE 06/28/2019 14 - Other: See Comments Comments: Black stools Date Reviewed: 09/01/2022 Reviewed by: Joyce Mata MA - Fully Assessed Visit Diagnosis:Encounter for screening mammogram for breast cancer [Z12.31] Order(s):[facility] SCREENING [[id number]] Order #: [id number] FUTURE Prescriptions as of 10/04/2022 - acyclovir (ZOVIRAX) 400 mg tablet Take 1 tablet by mouth three times daily as needed. Take 1 tablet by mouth three times a day for 10 days as needed - clobetasol (TEMOVATE) 0.05 % ointment Apply 1 application to affected area twice daily. TO AFFECTED AREA. Problem List As Of Date 09/29/2022 Noted Resolved Lichen sclerosus [L90.0] 02/21/2012 Genital atrophy of female [N94.9] 03/23/2012 Crohn's disease (HCC) [K50.90] 08/29/2000 07/03/2019 Fibromyalgia [M79.7] Esophageal reflux [K21.9] Other constipation [K59.09] 07/03/2019 Lactose intolerance [E73.9] 07/03/2019 Generalized anxiety disorder [F41.1] Encounter Status:Closed by EPIC, PRODUSER on 10/04/22 [facility] 09-01-2022 History of Presen t illness Narrative Patient presents with: Cough: Chest congestion, sore throat, body aches, chills x 1 day HPI: Feeling sick since yesterday. Her family is sick with URI symptoms also. Positive symptoms: Cough, Sore throat, Chills, Body Aches, sometimes Shortness of breath, Chest pain (lower sternum, tender to push on, deep breath, or pulling), Post nasal drainage, Malaise, Fatigue, Headache, Negative symptoms: Nasal Congestion, Rhinorrhea, Diarrhea, OTC: Mucinex, Cold Medicine MEDICATIONS: Current Outpatient Medications Medication Sig acyclovir (ZOVIRAX) 400 mg tablet Take 1 tablet by mouth three times daily as needed. Take 1 tablet by mouth three times a day for 10 days as needed clobetasol (TEMOVATE) 0.05 % ointment Apply 1 application to affected area twice daily. TO AFFECTED AREA. No current facility-administered medications for this visit. ALLERGIES: ALLERGIES Allergen Reactions Banana GI Upset Eggs [Egg] GI Upset Environmental [Othe* Lactose Intolerance Prednisone Other: See Comments Black stools VITALS: BP 128/82 Pulse 93 Temp 37.1 C (98.8 F) Resp 20 Wt 115.4 kg (254 lb 6.4 oz) LMP 01/16/2006 SpO2 97% BMI 46.91 kg/m PHYSICAL EXAM: GEN: mildly ill appearing HEENT: PERRL, EOMI, conjunctiva clear Ears: canals clear. TMs without erythema, bulge, or effusion Sinuses: non-tender frontal sinus, non-tender maxillary sinuses Throat: moist mucous membranes, mild erythema, no exudate Neck: supple, no thyromegaly, no lymphadenopathy HEART: regular rate and rhythm, no murmurs LUNGS: clear to auscultation, no wheezes or crackles, no increased WOB CHEST: left lower sternal border reproduces chest pain. ASSESSMENT/PLAN: 1. Influenza-like illness - ICD9: 487.1, ICD10: J11.1 (primary diagnosis) - suspect viral URI, differential includes COVID-19 and influenza. - Discussed supportive care treatment with home isolation, rest, cold medicine, and analgesia. - Red flags to seek further treatment include chest pain, shortness of breath, and lethargy; in the ER if severe. - COVID WITH FLUA+B, ROUTINE 2. Costochondritis - ICD9: 733.6, ICD10: M94.0 Reproducible musculoskeletal chest pain. As needed analgesia. Jorgito Horta MD documented in this encounter [facility] documented as of this encounter (statuses as of 09/03/2022) [facility] History of Past illness Narrative* Problem Noted Date Resolved Date Crohn's disease 08/29/2000 07/03/2019 Overview: crohns disease, rectal bleeding, resolved after hysterectomy. documented as of this encounter (statuses as of 10/04/2022) [facility] History of Past illness Narrative* Problem Noted Date Resolved Date Crohn's disease 08/29/2000 07/03/2019 Overview: crohns disease, rectal bleeding, resolved after hysterectomy. documented as of this encounter (statuses as of 10/26/2022) [facility] History of Past illness Narrative* Problem Noted Date Resolved Date Crohn's disease 08/29/2000 07/03/2019 Overview: crohns disease, rectal bleeding, resolved after hysterectomy. documented as of this encounter (statuses as of 10/28/2022) [facility] History of Past illness Narrative* Problem Noted Date Diagnosed Date Resolved Date Crohn's disease 08/29/2000 07/03/2019 Overview: crohns disease, rectal bleeding, resolved after hysterectomy. documented as of this encounter (statuses as of 09/12/2023) [facility] Influenza-like illness- Primary Influenza with other respiratory manifestations Costochondritis Tietze's disease [facility] Encounter for screening mammogram for breast cancer [facility] Diagnosis Vitamin D insufficiency- Primary Unspecified vitamin D deficiency Elevated AST (SGOT) Nonspecific elevation of levels of transaminase or lactic acid dehydrogenase (LDH) Neutropenia, unspecified type (HCC) [facility] Diagnosis Annual physical exam- Primary Routine general medical examination at a health care facility Gastroesophageal reflux disease, unspecified whether esophagitis present Generalized anxiety disorder Morbid obesity (HCC) Morbid obesity Recurrent cold sores Herpes simplex without mention of complication Lichen sclerosus 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 Herpes simplex without mention of complication [facility] Diagnosis Encounter for screening mammogram for breast cancer documented in this encounter [facility] for referral (narrative)* Diagnostic Procedure Only (Routine) - Pending Review Specialty Diagnoses / Procedures Referred By Court goodwin Referred To Contact [facility] Diagnoses Encounter for screening mammogram for breast cancer Procedures MONY SCREENING SCREENING MAMMOGRAPHY BI 2-VIEW BREAST INC Manda Dumas MD [address] [place] [address] [place] [address] Referral ID Status Reason Start Date Expiration Date Visits Requested Visits Authorized [id number] Pending Review Auto-Generat ed Referral 09/29/2022 10/29/2023 [address] [facility] for referral (narrative)* Diagnostic Procedure Only (Routine) - Pending Review Specialty Diagnoses / Procedures Referred By Court goodwin Referred To Contact [facility] Diagnoses Encounter for screening mammogram for breast cancer Procedures MONY SCREENING SCREENING MAMMOGRAPHY BI 2-VIEW BREAST INC Manda Dumas MD [address] [place] [address] [facility] [address] [address] Referral ID Status Reason Start Date Expiration Date Visits Requested Visits Authorized [id number] Pending Review Auto-Generat ed Referral 09/07/2023 10/06/2024 1 1 [facility] Concerns Infection Onset Date Last Indicated Resolved Time COVID-19 Rule-Out 09/01/2022 09/01/2022 09/02/2022 8:41 AM EST Summary Purpose Family History No Family History Records Found Advance Directives No Advanced Directives Records Found Additional Source Comments Source Comments (unrecognize d section and content) In the event this informatio n is protected by the Federal Confidentiality of Alcohol and Drug Abuse Patient Records regulations: The Federal rules restrict any use of the information to criminally investigate or prosecute any alcohol or drug abuse patient.[facility] event this information is protected by the Federal Confidentiality of Alcohol and Drug Abuse Patient Records regulations: The Federal rules restrict any use of the information to criminally investigate or prosecute any alcohol or drug abuse patient.[facility] event this information is protected by the Federal Confidentiality of Alcohol and Drug Abuse Patient Records regulations: The Federal rules restrict any use of the information to criminally investigate or prosecute any alcohol or drug abuse patient.[facility] event this information is protected by the Federal Confidentiality of Alcohol and Drug Abuse Patient Records regulations: The Federal rules restrict any use of the information to criminally investigate or prosecute any alcohol or drug abuse patient.[facility] event this information is protected by the Federal Confidentiality of Alcohol and Drug Abuse Patient Records regulations: The Federal rules restrict any use of the information to criminally investigate or prosecute any alcohol or drug abuse patient.[facility] Reason for Visit (unrecogniz ed section and content) Reason Comments Results Reason Comments Physical Wanting to discuss w eight loss options. Care Teams (unrecognized sec tion and content) [employer] Operations Specialist Relationship Specialty Start Date End Date Manda Mercado MD [address], [place] [phone] PCP - General Family Medicine 06/28/19 [employer] Specialist Relationship Specialty Start Date End Date Manda Mercado MD [address], [place] [phone] PCP - General Family Medicine 06/28/19 [employer] Operations Specialist Relationship Specialty Start Date End Date Manda Mercado MD [address], [place] [phone] PCP - General Family Medicine 06/28/19 [employer] Operations Specialist Relationship Specialty Start Date End Date Manda Mercado MD [address], [place] [phone] PCP - General Family Medicine 06/28/19 INFORMATION SOURCE (unrecogn ized section and content) FOR RECORDS PERTAINING TO PATIENTS WHO ARE OR HAVE BEEN ENROLLED IN A CHEMICAL DEPENDENCY/SUBSTANCEABUSE PROGRAM, SOME INFORMATION MAY BE OMITTED. This clinical summary was aggregated from multiple sources. Caution should be exercised in using it in the provision of clinical care. This summary normalizes information from multiple sources, and as a consequence, information in this document may materially change the coding, format and clinical context of patient data. In addition, data may be omitted in some cases. CLINICAL DECISIONS SHOULD BE BASED ON THE PRIMARY CLINICAL RECORDS. [facility] [employer] [facility]. provides no warranty or guarantee of the accuracy or completeness of information in this document.
[2023-09-27 23:54] LABS: Bacteria 0 SEEN /hpf (None Seen); Mucous, Urine 0 SEEN /hpf (<or=2+); Red Blood Cells-Urine 0 SEEN /hpf (0-5); Squamous Epithelial Cells - UA 0 SEEN /hpf (5-10); White Blood Cells 0 SEEN /hpf (0-5)
[2023-09-27 23:59] LABS: Color, Urine Yellow (Yellow); Glucose, Dipstick Normal (Normal); Ketone-Dipstick 5 mg/dl (Negative); Leukocyte Esterase-Dipstick Negative /ul (Negative); Nitrite-Dipstick Negative (Negative); Occult Blood-Urine Negative /ul (Negative); Protein-Dipstick 15 mg/dl (Negative); Specific Gravity, Urine 1.025 (1.002-1.030); Urine Bilirubin Dipstick Negative (Negative); Urine Clarity Clear (Clear); Urine Urobilinogen Normal (Normal)
[2023-09-28 00:08] VITALS: BP 117/74; PULSE 91; RESP 16; O2SAT 99
== END 2023-09-28 00:36 | disposition home or self-care (01) ==
LOC: ED 23:46
PROVIDERS: Emergency Provider Emergency Medicine; PCP Family Medicine; Visit Provider Emergency Medicine
DX: B02.1 Zoster meningitis (principal); Z90.710 Acquired absence of both cervix and uterus
CPT/HCPCS: 81001; 99282

== ENCOUNTER 2023-10-21 20:58 | Inpatient (IN) | payer OTHER, SELFPAY ==
[2023-10-21] VITALS (10 sets, daily range): BP systolic 118–163; BP diastolic 77–100; PULSE 84–97; RESP 12–30; TEMP 36.4–37.1; O2SAT 94–100; BMI 50.7
--- OUTSIDE RECORDS SUMMARY | 2023-10-21 21:17 | XMS RPT_ITS | CCD ---
Author Name Unknown Address [address] [place] [address] Organization [facility] Care Team Providers Care Gate Tender Name Role Phone Manda Canales MD Primary Care Provider MANDA CANALES Primary Care Unavailab le SELF Referring Unavailable MANDA CANALES Attending Unavailab MANDA Daniels Primary Care Unavailab le MANDA CANALES Referring Unavailab MANDA Daniels Attending Unavailab MANDA Daniels Primary Care Unavailab le Allergies Allergy Classification Reported Allergen(s) Allergy Type Date of Onset Reaction(s) Facility (7 sources) Banana Extract; Translations: [BANANA] Drug Allergy 2 GI Upset [facility] Work Phone: (7 sources) egg extract; Translations: [EGG] Drug Allergy 2 GI Upset [facility] Work Phone: (7 sources) Lactose; Translations: [LACTOSE] Drug Allergy 2 Intolerance [facility] Work Phone: (7 sources) predniSONE; Translations: [PREDNISONE] Drug Allergy 9 Other: See Comments [facility] Work Phone: (5 sources) ENVIRONMENTAL [Other] Propensity to adverse reactions 5 [facility] Work Phone: (1 source) OTHER; Translations: [OTHER] Propensity to adverse reactions (disorder) 5 [facility] Repository Medications Current Medications Medication Drug Class(es) Dates Sig (Normalized) Sig (Original) erythromycin 0.005 mg/mg ophthalmic ointment (1 source) Macrolide, Macrolide Antimicrobial Start: 10-08-2023 End: 10-15-2023 erythromycin (ROMYCIN) 5 mg/gram (0.5 %) ophthalmic ointment Indications: Bacterial conjunctivitis Use 1 application in the left eye four times daily for 7 days. 1 g 1 10/08/2023 10/15/2023 Active Completed/Discontinued Medications Medication Drug Class(es) Dates [...] Problem Date Documented Date Episodic/Chronic Anxiety disorders (8 sources) Generalized anxiety disorder; Translations: [Generalized anxiety disorder] Onset: 11-24-2020 11-24-2020 Chronic Diseases of white blood cells (1 source) Neutropenia; Translations: [Neutropenia, unspecified] Chronic Esophageal disorders (8 sources) Gastroesophageal reflux disease; Translations: [Gastro-esophageal reflux disease without esophagitis] Onset: 06-28-2019 06-28-2019 Chronic Inflammation; infection of eye (except that caused by tuberculosis or sexually transmitteddisease) (1 source) Bacterial conjunctivitis; Translations: [Unspecified conjunctivitis] 10-08-2023 Episodic Influenza (1 source) Influenza-like illness; Translations: [Influenza due to unidentified influenza virus with other respiratory manifestations] Episodic Nutritional deficiencies (5 sources) Vitamin D deficiency; Translations: [Vitamin D deficiency, unspecified] Onset: 10-25-2022 Chronic Other bone disease and musculoskeletal deformities (1 source) Costal chondritis; Translations: [Chondrocostal junction syndrome [Tietze]] Episodic Other connective tissue disease (6 sources) Fibromyalgia; Translations: [Fibromyalgia] 06-28-2019 Episodic Other inflammatory condition of skin (4 sources) Scalp psoriasis; 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, unspecified] Onset: 10-22-2022 10-22-2022 Chronic Other liver diseases (1 source) Aspartate aminotransferase serum level raised; Translations: [Elevated AST (SGOT)] Episodic Other nutritional; endocrine; and metabolic disorders (6 sources) Intolerance to lactose; Translations: [Lactose intolerance, unspecified] Onset: 07-03-2019 07-03-2019 Chronic Other nutritional; endocrine; and metabolic disorders (5 sources) Morbid obesity; Translations: [Morbid (severe) obesity [...] neoplasm of breast] Episodic Other skin disorders (8 sources) Lichen sclerosus et atrophicus; Translations: [Circumscribed scleroderma] Onset: 02-21-2012 02-21-2012 Chronic Past or Other Problems Problem Classification Problem Date Documented Da te Episodic/Chronic Other female genital disorders (6 sources) Disorder of female genital system; Translations: [Unspecified condition associated with female genital organs and menstrual cycle] Onset: 03-23-2012 03-23-2012 Episodic Other gastrointestinal disorders (6 sources) Constipation; Translations: [Other constipation] Onset: 07-03-2019 07-03-2019 Episodic Viral infection (10 sources) Recurrent herpes simplex labialis; Translations: [Herpesviral vesicular dermatitis] Onset: 10-22-2022 10-22-2022 Episodic Results Test Name Value Interpretation Reference Range Facil ity Vital Signs Date Time Vital Sign Value Performing Clinician Faci lity 10-08-2023 10:19-0500 Body temperature 97.5 [degF] Manda Canales MD Work Phone: [facility] 10-08-2023 10:19-0500 Body weight 118.66 kg Manda Canales MD Work Phone: [facility] 10-08-2023 10:19-0500 Diastolic blood pressure 68 mm[Hg] Manda Canales MD Work Phone: [facility] 10-08-2023 10:19-0500 Heart rate 90 /min Manda Canales MD Work Phone: [facility] 10-08-2023 10:19-0500 Respiratory rate 16 /min Manda Canales MD Work Phone: [facility] 10-08-2023 10:19-0500 SaO2% (BldA) [Mass fraction] 97 % Manda Canales MD Work Phone: [facility] 10-08-2023 10:19-0500 Systolic blood pressure 118 mm[Hg] Manda Canales MD Work Phone: [facility] 10-22-2022 07:57-0500 Body height 160 cm Manda Canales MD Work Phone: [facility] 10-22-2022 07:57-0500 Body weight 116.39 kg Manda Canales MD Work Phone: [facility] 10-22-2022 07:57-0500 Diastolic blood pressure 74 mm[Hg] Manda Canales MD Work Phone: [facility] 10-22-2022 07:57-0500 Heart rate 91 /min Manda Canales MD Work Phone: [facility] 10-22-2022 07:57-0500 Respiratory rate 16 /min Manda Canales MD Work Phone: [facility] 10-22-2022 07:57-0500 SaO2% (BldA) [Mass fraction] 97 % Manda Canales MD Work Phone: [facility] 10-22-2022 07:57-0500 Systolic blood pressure 108 mm[Hg] Manda Canales MD Work Phone: [facility] 09-01-2022 19:01-0500 Body temperature 98.8 [degF] Jorgito Horta MD Work Phone: [facility] 09-01-2022 19:01-0500 Body weight 115.39 kg Jorgito Horta MD Work Phone: [facility] 09-01-2022 19:01-0500 Diastolic blood pressure 82 mm[Hg] Jorgito Horta MD Work Phone: [facility] 09-01-2022 19:01-0500 Heart rate 93 /min Jorgito Horta MD Work Phone: [facility] 09-01-2022 19:01-0500 Respiratory rate 20 /min Jorgito Horta MD Work Phone: [facility] 09-01-2022 19:01-0500 SaO2% (BldA) [Mass fraction] 97 % Jorgito Horta MD Work Phone: [facility] 09-01-2022 19:01-0500 Systolic blood pressure 128 mm[Hg] Jorgito Horta MD Work Phone: [facility] Encounters Encounter Date Encounter Type Care Provider Facility Start: 10-08-2023 End: 10-08-2023 ambulatory MANDA CANALES Facility:[facility] Start: 10-08-2023 End: 10-08-2023 Patient encounter procedure Manda Canales MD Work Phone: [facility] Procedures Date Procedure Procedure Detail Performing Clinician Start: 10-22-2022 Lipid 1996 panel - S saima or Plasma Manda Canales MD Work Phone: Start: 09-01-2022 COVID WITH FLUA+B, ROUTINE Jorgito Horta MD Work Phone: Start: 07-04-2019 Mammography Jorgito esparza MD Work Phone: Start: 07-03-2019 Colonoscopy Jorgito esparza MD Work Phone: Plan of Treatment Date Care Activity Detail Author Start: 06-28-2029 Urine microalbumin profile [facility] Start: 10-22-2027 Lipid panel Lipid Screening [facility] Start: 10-22-2027 LIPID SCREEN LIPID SCREEN [facility] Start: 11-24-2025 LIPID SCREEN LIPID SCREEN [facility] Start: 10-22-2025 DIABETES SCREEN DIABETES SCREEN [facility] Start: 10-22-2025 Diabetes Screening Diabetes Screenin g [facility] Start: 07-03-2024 Colonoscopy COLONOSCOPY [facility] Start: 07-03-2024 COLORECTAL CANCER SCREENING COLORECTAL CANCER SCREENING [facility] Start: 07-03-2024 Screening for malign ant neoplasm of colon [facility] Start: 11-25-2023 DIABETES SCREEN DIABETES SCREEN [facility] Start: 10-22-2023 COVID-19 VACCINE (#1) COVID-19 VACCI NE (#1) [facility] Immunizations Immunization Date Immunization Notes Care Provider Fa doreenty 06-28-2019 tetanus toxoid, redu mandi diphtheria toxoid, and acellular pertussis vaccine, adsorbed Jorgito Horta MD Work Phone: [facility] 11-10-2016 influenza virus vaccine, unspecified formulation Manda Canales MD Work Phone: [facility] 11-10-2014 tetanus and diphther ia toxoids, not adsorbed, for adult use Jorgito Horta MD Work Phone: [facility] Payers Date Payer Category Payer Unknown [id number] 2020 Private Health Insurance [id number] 2020 Private Health Insurance [id number] Social History Date Type Detail Facility Start: 09-01-2022 Tobacco smoking stat us TXIS Ex-smoker [facility] End: 03-23-1993 History of tobacco use Current smoker [facility] End: 03-23-1993 History of tobacco use Cigarette Smoker [facility] Start: 09-01-2022 Tobacco use and exposure Smoke less tobacco non-user [facility] Start: 09-01-2022 End: 10-08-2023 Alcohol intake Current drinker of alcohol (finding) [facility] Start: 10-07-2020 End: 10-19-2022 History SDOH Alcohol Frequency 2 [facility] Start: 10-07-2020 End: 10-19-2022 History SDOH Alcohol Std Drinks 1 [facility] Start: 10-07-2020 History SDOH Social Connections Phone 98 [facility] Start: 10-07-2020 End: 10-19-2022 History SDOH Social Connections Living 3 [facility] Start: 10-07-2020 End: 10-19-2022 History SDOH Financial 5 [facility] Start: 10-06-2020 Education 21 [facility] Start: 06-28-2019 Alcohol Comment rarely Hanna duran [facility] Start: 1975 Sex Assigned At Female C [facility] Start: 10-22-2022 Alcohol Comment once per month [facility] Start: 10-18-2022 End: 04-08-2023 History of Social function [place] [facility] Start: 10-18-2022 End: 04-08-2023 Social connection and isolation panel [facility] Do you belong to any clubs or organizations such as mormon groups, unions, fraternal or athletic groups, or school groups? No [facility] Are you now , , , , never or living with a partner? [facility] How often to you hav e a drink containing alcohol? Monthly or less [facility] How many standard dr inks containing alcohol do you have on a typical day? 1 or 2 [facility] How often do you hav e 6 or more drinks on 1 occasion? Never [facility] How hard is it for y ou to pay for the very basics like food, housing, medical care, and heating Not hard at all [facility] Do you feel stress - tense, restless, nervous, or anxious, or unable to sleep at night because your mind is troubled all the time - these days [OSQ] To some extent [facility] (I/We) worried wheth er (my/our) food would run out before (I/we) got money to buy more. Never true [facility] Start: 10-06-2020 Gender identity Identifies as female gender (finding) [facility] Start: 10-06-2020 Sexual orientation Heterosexual (ruth reina) [facility] Clinical Notes 08-29-2000 to 10-08-2023 Manda Canales MD - 10/08/2023 10:17 AM ESTTelephone Encounter - Lalita Hagan LPN - 10/25/2022 5:00 PM ESTTelephone Encounter - Manda Canales MD - 10/25/2022 3:43 PM EST Note Date & Type Note Facility 10-08-2023 Note HNO ID: [id number] Author: MANDA CANALES MD Service: ? Author Type: Physician Type: Progress Notes Filed: 10/08/2023 11:11 Note Text: Chief Complaint Patient presents with: ER F/U: Shingles- patient also has left eye issue wondering if shingle related as shingle developed on Left side. HPI Zunilda Leon is a 48 year old female who presents here today for Above Complaints.. Patient diagnosed with shingles rash along T6 dermatome at [facility] ED on 09/27. Pain started 4 days prior, but rash started 1 day prior to evaluation. Started on Valtrex 1,000 mg TID x 7 days and advised to follow up with our office in 5-7 days. Since discharge, patient states that she has completed the Valtrex as prescribed. Rash is improving, but is still present and has burning pain around the area. Denies fever, purulent drainage, spreading redness, warmth to touch. Treaing pain with ibuprofen and itching with benadryl. Also notes she woke up this morning with goop around her left eye along with eye redness and itching. Denies vision changes, foreign body sensation, fever, pain with eye movement, periorbital redness or swelling. Past medical history, appointments, medications, allergies reviewed. Previous Medical History PAST MEDICAL HISTORY Diagnosis Date Crohn's disease (HCC) 2000 crohns disease, rectal bleeding resolved after hysterectomy. GI in [place] Depression Dysfunctional uterine bleeding 2006 s/p hysterectomy Dysmenorrhea Eczema Esophageal reflux Gastroesophageal reflux Fibromyalgia Generalized anxiety disorder Lactose intolerance Lichen sclerosus Morbid obesity (HCC) Other acne Acne Recurrent cold sores Scalp psoriasis Vitamin D insufficiency Previous Surgical History PAST SURGICAL HISTORY Procedure Laterality Date COLONOSCOPY 2009 multiple for crohns disease. [place]. Benign polyp COLONOSCOPY 09/21/2005 active colitis at [...] FAMILY HISTORY Problem Relation Age of Onset Diabetes Mother Arthritis Mother Hypothyroidism Mother Hypertension Father Lipids Father Rheumatologic disease Father RA Rheumatologic disease Brother RA Stroke Brother Colon Cancer Maternal Grandmother Emphysema Maternal Grandfather Alcohol/Drug Maternal Grandfather alcoholism Coronary Artery Disease Paternal Grandmother Diabetes Paternal Grandmother Stroke Paternal Grandmother Hypertension Paternal Grandfather Coronary Artery Disease Paternal Grandfather Diabetes Paternal Grandfather Stroke Paternal Grandfather Diabetes Son Cervical Cancer Maternal Aunt Patient Allergies ALLERGIES Allergen Reactions Banana GI Upset Eggs [Egg] GI Upset Environmental [Othe* Lactose Intolerance Prednisone Other: See Comments Black stools Current Medications Current Outpatient Medications on File Prior to Visit Medication Sig clobetasol (TEMOVATE) 0.05 % ointment Apply 1 application to affected area twice daily. TO AFFECTED AREA. lansoprazole (PREVACID) 30 mg capsule Take 1 capsule by mouth daily before breakfast. 1/2 hr before meal. No current facility-administered medications on file prior to visit. Social History Social History Tobacco Use Smoking status: Former Types: Cigarettes Quit date: 03/23/1993 Years since quittin.5 Smokeless tobacco: Never Vaping Use Vaping Use: Never used Substance Use Topics Alcohol use: Yes Comment: once per month Drug use: Never Review of Symptoms REVIEW OF SYSTEMS See HPI EXAM: BP 118/68 Pulse 90 Temp 36.4 ?C (97.5 ?F) Resp 16 Wt 118.7 kg (261 lb 9.6 oz) LMP 01/16/2006 SpO2 97% BMI 46.34 kg/m? General Appearance: Well appearing, alert, in no acute distress, well-hydrated, well nourished.. Skin: healing shingles rash along left T6 dermatome without vesicles or pustules. No cellulitis or abscess noted. Eyes: PERLLA, EOMI. Left sclera injected without drainage. Mild swelling around the eye without erythema, warmth, TTP. No pain with eye movement. No foreign body. Health Maintenance List Mammogram Screening due on 07/04/2020 Influenza Vaccine(1) due on 04/29/2023 Depression Assessment Never done Hepatitis B Vaccine(3 of 3 - 19+ 3-dose series) due on 10/22/2023 Covid-19 Vaccine(1) due on 10/22/2023 Colorectal Cancer Screening due on 07/03/2024 Diabetes Screening due on 10/22/2025 Lipid Screening due on 10/22/2027 DTaP,Tdap,Td Vaccine(4 - Td or Tdap) due on 06/28/20 (more content not included)... [facility] 10-08-2023 History of Presen t illness Narrative Chief Complaint Patient presents with: ER F/U: Shingles- patient also has left eye issue wondering if shingle related as shingle developed on Left side. HPI Zunilda Leon is a 48 year old female who presents here today for Above Complaints.. Patient diagnosed with shingles rash along T6 dermatome at [facility] ED on 09/27. Pain started 4 days prior, but rash started 1 day prior to evaluation. Started on Valtrex 1,000 mg TID x 7 days and advised to follow up with our office in 5-7 days. Since discharge, patient states that she has completed the Valtrex as prescribed. Rash is improving, but is still present and has burning pain around the area. Denies fever, purulent drainage, spreading redness, warmth to touch. Treaing pain with ibuprofen and itching with benadryl. Also notes she woke up this morning with goop around her left eye along with eye redness and itching. Denies vision changes, foreign body sensation, fever, pain with eye movement, periorbital redness or swelling. Past medical history, appointments, medications, allergies reviewed. Previous Medical History PAST MEDICAL HISTORY Diagnosis Date Crohn's disease (HCC) 2000 crohns disease, rectal bleeding resolved after hysterectomy. GI in [place] Depression Dysfunctional uterine bleeding 2006 s/p hysterectomy Dysmenorrhea Eczema Esophageal reflux Gastroesophageal reflux Fibromyalgia Generalized anxiety disorder Lactose intolerance Lichen sclerosus Morbid obesity (HCC) Other acne Acne Recurrent cold sores Scalp psoriasis Vitamin D insufficiency Previous Surgical History PAST SURGICAL HISTORY Procedure Laterality Date COLONOSCOPY 2009 multiple for crohns disease. [place]. Benign polyp COLONOSCOPY 09/21/2005 active colitis at [...] FAMILY HISTORY Problem Relation Age of Onset Diabetes Mother Arthritis Mother Hypothyroidism Mother Hypertension Father Lipids Father Rheumatologic disease Father RA Rheumatologic disease Brother RA Stroke Brother Colon Cancer Maternal Grandmother Emphysema Maternal Grandfather Alcohol/Drug Maternal Grandfather alcoholism Coronary Artery Disease Paternal Grandmother Diabetes Paternal Grandmother Stroke Paternal Grandmother Hypertension Paternal Grandfather Coronary Artery Disease Paternal Grandfather Diabetes Paternal Grandfather Stroke Paternal Grandfather Diabetes Son Cervical Cancer Maternal Aunt Patient Allergies ALLERGIES Allergen Reactions Banana GI Upset Eggs [Egg] GI Upset Environmental [Othe* Lactose Intolerance Prednisone Other: See Comments Black stools Current Medications Current Outpatient Medications on File Prior to Visit Medication Sig clobetasol (TEMOVATE) 0.05 % ointment Apply 1 application to affected area twice daily. TO AFFECTED AREA. lansoprazole (PREVACID) 30 mg capsule Take 1 capsule by mouth daily before breakfast. 1/2 hr before meal. No current facility-administered medications on file prior to visit. Social History Social History Tobacco Use Smoking status: Former Types: Cigarettes Quit date: 03/23/1993 Years since quittin.5 Smokeless tobacco: Never Vaping Use Vaping Use: Never used Substance Use Topics Alcohol use: Yes Comment: once per month Drug use: Never Review of Symptoms REVIEW OF SYSTEMS See HPI EXAM: BP 118/68 Pulse 90 Temp 36.4 C (97.5 F) Resp 16 Wt 118.7 kg (261 lb 9.6 oz) LMP 01/16/2006 SpO2 97% BMI 46.34 kg/m General Appearance: Well appearing, alert, in no acute distress, well-hydrated, well nourished.. Skin: healing shingles rash along left T6 dermatome without vesicles or pustules. No cellulitis or abscess noted. Eyes: PERLLA, EOMI. Left sclera injected without drainage. Mild swelling around the eye without erythema, warmth, TTP. No pain with eye movement. No foreign body. Health Maintenance List Mammogram Screening due on 07/04/2020 Influenza Vaccine(1) due on 04/29/2023 Depression Assessment Never done Hepatitis B Vaccine(3 of 3 - 19+ 3-dose series) due on 10/22/2023 Covid-19 Vaccine(1) due on 10/22/2023 Colorectal Cancer Screening due on 07/03/2024 Diabetes Screening due on 10/22/2025 Lipid Screening due on 10/22/2027 DTaP,Tdap,Td Vaccine(4 - Td or Tdap) due on 06/28/2029 Hepatitis C Screening Completed HIV Screening Completed HPV Vaccine Aged Out Pap Testing Discontinued HPV Testing Discontinued ASSESSMENT/PLAN: 1. Herpes zoster without complication - ICD9: 053.9, ICD10: B02.9 (primary diagnosis) Healing shingles rash with post herpetic neuralgia. Completed Valtrex. Will treat pain with gabapentin and f/u in 1 month. Given information for home. Red flags for re-assessment reviewed with patient in detail. 2. Post herpetic neuralgia - ICD9: 053.19, ICD10: B02.29 See above. - GABAPENTIN 300 MG CAPSULE 3. Bacterial conjunctivitis - ICD9: 372.39, 041.9, ICD10: H10.9 Bacterial - see medication orders - course and contagiousness issues discussed, including hand washing. - Instructed to call if high fever, development of periorbital redness or swelling, eye pain, visual changes, concerns or if symptoms persist. - ERYTHROMYCIN 5 MG/GRAM (0.5 %) EYE OINTMENT Manda Canales MD documented in this encounter [facility] 09-07-2023 Note Patient Outreach (IN [facility]) ZUNILDA LEON ([id number]) 1975 F Date Time Provider Department 09/07/23 MANDA CANALES During your visit today, we recorded the [...] for screening mammogram for breast cancer [Z12.31] Order(s):[facility] SCREENING [[id number]] Order #: [id number] FUTURE Prescriptions as of 09/12/2023 - clobetasol [...] D insufficiency [E55.9] 10/25/2022 Encounter Status:Closed by ELLYN BARNESUSER on 09/12/23 [facility] 10-25-2022 Miscellaneous Notes Patient notified of results and recommendations. Voices understanding. Lalita Hagan LPN Low bilirubin is benign finding and [...] Esha Flores RN documented in this encounter [facility] 10-22-2022 Note HNO ID: [id number] Author: Manda Canales MD Service: ? Author Type: Physician Type: [...] Date COLONOSCOPY 2009 multiple for crohns disease. [place]. Benign polyp COLONOSCOPY 09/21/2005 active colitis at distal transverse colon COLONOSCOPY around 2007. [place]. Normal. COLONOSCOPY 01/15/2004 severe acute and chronic colitis, sml internal hemorrhoids COLONOSCOPY 03/12/2003 hyperplastic polyp x2, colitis EGD 09/21/2005 chronic reflux like symptoms, normal looking distal esophagus LIG/TRNSXJ FLP TUBE ABDL/VAG APPR UNI/BI Tubal ligation PAST SURGICAL HISTORY OF wisdom teeth PAST SURGICAL HISTORY OF 2006 hysterectomy lavhbso PAST SURGICAL HISTORY OF tonsilectomy [...] Negative for ch (more content not included)... [facility] 10-22-2022 History of Presen t illness Narrative [...] Date COLONOSCOPY 2009 multiple for crohns disease. [place]. Benign polyp COLONOSCOPY 09/21/2005 active colitis at distal transverse colon COLONOSCOPY around 2007. [place]. Normal. COLONOSCOPY 01/15/2004 severe acute and chronic colitis, sml internal hemorrhoids COLONOSCOPY 03/12/2003 hyperplastic polyp x2, colitis EGD 09/21/2005 chronic reflux like symptoms, normal looking distal esophagus LIG/TRNSXJ FLP TUBE ABDL/VAG APPR UNI/BI Tubal ligation PAST SURGICAL HISTORY OF wisdom teeth PAST SURGICAL HISTORY OF 2006 hysterectomy lavhbso PAST SURGICAL HISTORY OF tonsilectomy [...] No history of dysuria, frequency or incontinence BUS ANALYST: Negative for abnormal vaginal bleeding, abnormal vaginal [...] discoloration, clubbing or cyanosis. Good capillary refill. BUS ANALYST: Patient deferred exam Musculoskeletal: No joint swelling, [...] diet of 1000 mg/day for under 50, 1983-9190 mg/day for 50+ - Discussed need and [...] as requested. Recommended she follow up with BUS ANALYST for persistent rash since she is refusing exam today. 7. HSV-1 (herpes simplex virus 1) infection - ICD9: 054.9, ICD10: B00.9 See above. Manda Canales MD documented in this encounter [facility] 09-01-2022 History of Presen t illness Narrative [...] Jorgito Horta MD documented in this encounter [facility] documented as of this encounter (statuses as of 09/03/2022) [facility]01-[facility]2001 History of Past illness Narrative* Problem Noted Date Resolved Date Crohn's disease 08/29/2000 07/03/2019 Overview: crohns disease, rectal bleeding, resolved after hysterectomy. documented as of this encounter (statuses as of 10/04/2022) [facility]2001 History of Past illness Narrative* Problem Noted Date Resolved Date Crohn's disease 08/29/2000 07/03/2019 Overview: crohns disease, rectal bleeding, resolved after hysterectomy. documented as of this encounter (statuses as of 10/26/2022) [facility] History of Past illness Narrative* Problem Noted Date Resolved Date Crohn's disease 08/29/2000 07/03/2019 Overview: crohns disease, rectal bleeding, resolved after hysterectomy. documented as of this encounter (statuses as of 10/28/2022) [facility]2001 History of Past illness Narrative* Problem Noted Date Diagnosed Date Resolved Date Crohn's disease 08/29/2000 07/03/2019 Overview: crohns disease, rectal bleeding, resolved after hysterectomy. documented as of this encounter (statuses as of 09/12/2023) [facility] History of Past illness Narrative* Problem Noted Date Diagnosed Date Resolved Date Crohn's disease 08/29/2000 07/03/2019 Overview: crohns disease, rectal bleeding, resolved after hysterectomy. documented as of this encounter (statuses as of 10/08/2023) [facility] [place] [facility] Diagnosis Influenza-like illness- Primary Influenza with other respiratory manifestations Costochondritis Tietze's disease [facility] Diagnosis Encounter for screening mammogram for breast cancer [facility] [place] [facility] Diagnosis Vitamin D insufficiency- Primary Unspecified vitamin D deficiency Elevated AST (SGOT) Nonspecific elevation of levels of transaminase or lactic acid dehydrogenase (LDH) Neutropenia, unspecified type (HCC) documented [facility] [place] [facility] Diagnosis Annual physical exam- Primary Routine general medical examination at a health care facility Gastroesophageal reflux disease, unspecified whether esophagitis present Generalized anxiety disorder Morbid obesity (HCC) Morbid obesity Recurrent cold sores Herpes simplex without mention of complication Lichen sclerosus 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 Herpes simplex without mention of complication documented [facility] [place] [facility] Diagnosis Encounter for screening mammogram for breast cancer [facility] [place] [facility] Diagnosis Herpes zoster without complication- Primary Herpes zoster without mention of complication Post herpetic neuralgia Herpes zoster with other nervous system complications Bacterial conjunctivitis Other conjunctivitis documented in this encounter [facility] for referral (narrative)* Diagnostic Procedure Only (Routine) - Pending Review Specialty Diagnoses / Procedures Referred By Court goodwin Referred To Contact [facility] Diagnoses Encounter for screening mammogram for breast cancer Procedures MONY SCREENING SCREENING MAMMOGRAPHY BI 2-VIEW BREAST INC CAD Manda Canales MD [address] [place] [address] [facility] [address] [place] [id number] Referral ID Status Reason Start Date Expiration Date Visits Requested Visits Authorized [id number] Pending Review Auto-Generat ed Referral 09/29/2022 10/29/2023 1 1 [facility] Diagnostic Procedure Only (Routine) - Pending Review Specialty Diagnoses / Procedures Referred By Contac t Referred To Contact [facility] Diagnoses Encounter for screening mammogram for breast cancer Procedures MONY SCREENING SCREENING MAMMOGRAPHY BI 2-VIEW BREAST INC CAD Manda Canales MD [address] [place] [address] [facility] [address] [place] [address] Referral ID Status Reason Start Date Expiration Date Visits Requested Visits Authorized [id number] Pending Review Auto-Generat ed Referral 09/07/2023 10/06/2024 1 1 [facility] Concerns Infection Onset Date Last Indicated Resolved [...] or prosecute any alcohol or drug abuse patient.[facility] the event this information is protected by the Federal Confidentiality of Alcohol and Drug Abuse Patient Records regulations: The Federal rules restrict any use of the information to criminally investigate or prosecute any alcohol or drug abuse patient.[facility] the event this information is protected by the Federal Confidentiality of Alcohol and Drug Abuse Patient Records regulations: The Federal rules restrict any use of the information to criminally investigate or prosecute any alcohol or drug abuse patient.[facility] the event this information is protected by the Federal Confidentiality of Alcohol and Drug Abuse Patient Records regulations: The Federal rules restrict any use of the information to criminally investigate or prosecute any alcohol or drug abuse patient.[facility] the event this information is protected by the Federal Confidentiality of Alcohol and Drug Abuse Patient Records regulations: The Federal rules restrict any use of the information to criminally investigate or prosecute any alcohol or drug abuse patient.[facility] the event this information is protected by the Federal Confidentiality of Alcohol and Drug Abuse Patient Records regulations: The Federal rules restrict any use of the information to criminally investigate or prosecute any alcohol or drug abuse patient.[facility] Reason for Visit (unrecogniz ed section and content) Reason Comments Results Reason Comments Physical Wanting to discuss w eight loss options. Reason Comments ER F/U Shingles- patient al so has left eye issue wondering if shingle related as shingle developed on Left side. Care Teams (unrecognized sec tion and content) Gate Tender Relationship Specialty Start Date End Date Manda Canales MD [address] [place], [place] [id number] PCP - General Family Medicine 06/28/19 Gate Tender Relationship Specialty Start Date End Date Manda Canales MD [address] [place], [place] [id number] PCP - General Family Medicine 06/28/19 Gate Tender Relationship Specialty Start Date End Date Manda Canales MD [address] [place] [address] PCP - General Family Medicine 06/28/19 Gate Tender Relationship Specialty Start Date End Date Manda Canales MD [address] [place] [address] PCP - General Family Medicine 06/28/19 Gate Tender Relationship Specialty Start Date End Date Manda Canales MD [address] [place] [address] PCP - General Family Medicine 06/28/19 INFORMATION [...] BE BASED ON THE PRIMARY CLINICAL RECORDS. [facility] Payment plugin [facility]. provides no warranty or guarantee of the accuracy or completeness of information in this document.
--- NOTE | 2023-10-21 21:26 | EKG12_ITS ---
Test Reason : CP Blood Pressure : / mmHG Vent. Rate : 085 BPM Atrial Rate : 085 BPM P-R Int : 188 ms QRS Dur : 080 ms QT Int : 368 ms P-R-T Axes : 032 014 038 degrees QTc Int : 437 ms Normal sinus rhythm Normal ECG Confirmed by ROME BATRES, ABHISHEK ([id number]), social media editor EVI DURHAM ([id number]) on 10/24/2023 9:42:15 AM Referred By: Confirmed By:ABHISHEK PETER MD
--- NOTE | 2023-10-21 21:39 | RAD_ITS ---
STUDY: X-RAY CHEST REASON FOR EXAM: Female, 48 years old. chest pain TECHNIQUE: Single AP portable view of the chest. COMPARISON: 04/05/2021. FINDINGS: The lungs are clear and expanded. There is no demonstrated pleural abnormality. Normal size heart. Normal mediastinum and marco antonio. Normal visualized pulmonary arteries. Normal visualized aortic arch and descending thoracic aorta. Normal visualized thoracic spine. Normal visualized ribs, clavicles, and shoulders. There is no demonstrated abnormality of the visualized soft tissue structures of the upper abdomen. RAD/Chest 1 View (Portable) IMPRESSION: Normal x-ray examination of the chest. Electronically Signed: Christiano Ordonez MD at 22:09 EST ,
--- NOTE | 2023-10-21 21:45 | CT_ITS ---
INDICATION: Neuro deficit, acute, stroke suspected EXAMINATION: CT BRAIN - CT Head Stroke Protocol W/O Contrast Injection TECHNIQUE: Multiple axial images were obtained of the head without intravenous contrast. A radiation dose optimization technique was used for this scan. IV Contrast dosage and agent: None. COMPARISON: No relevant prior comparison study available FINDINGS: BRAIN PARENCHYMA: No intra- or extra-axial hemorrhage. No evidence of acute infarct. No intracranial mass or mass effect. There is preservation of the benítez/white matter interface. Posterior fossa structures are unremarkable. CSF SPACES: Appropriate for age. No hydrocephalus. Basal cisterns are patent. CALVARIUM, SKULL BASE, PARANASAL SINUSES AND MASTOID AIR CELLS: Clear. No discrete lytic or blastic abnormalities. ORBITS: Both globes, extraocular muscles, optic nerves and retrobulbar fat appear unremarkable. ASPECTS Score for Acute Strokes: 10 CT/STROKE Brain/Head without Cont IMPRESSION: Negative Brain CT without contrast. N.B. : The above Results were Read Back by Christiano Ordonez MD to Nadia Yao MD, and understanding confirmed on 10/21/2023 22:02:21 (ET). Electronically Signed: Christiano Ordonez MD at 22:02 EST ,
--- NOTE | 2023-10-21 21:46 | CT_ITS ---
We are attempting to reach an attending provider to discuss findings. An addendum with communication details will be sent when the communication is complete. STUDY: CTA HEAD AND NECK WITH CONTRAST REASON FOR EXAM: Female, 48 years old. Neuro deficit, acute, stroke suspected RADIATION DOSAGE (If Supplied By Facility): CTDIvol = ( 17.63 ) mGy, DLP = ( 655.84 ) mGycm TECHNIQUE: CT angiography was performed with a multi-detector CT scanner. Data acquisition was obtained from the skull base through the vertex following intravenous administration of IV 100mL Isovue-370. MIP images were reconstructed from the axial data set. Post-processing of the angiographic images was performed, with multiplanar reformation and 3D reconstruction. Individualized dose optimization techniques were used for this CT. COMPARISON: No relevant priors. FINDINGS: Normal bilateral petrous carotid arteries. Normal right cavernous carotid artery with a normal supraclinoid bifurcation. Normal left cavernous carotid artery with a normal supraclinoid bifurcation. Normal right A1 segments of the anterior cerebral artery. Normal left A1 segments of the anterior cerebral artery. Normal intact anterior communicating artery (ACOM). Normal bilateral A2 segments of the anterior cerebral arteries. Normal right M1 and M2 segments of the middle cerebral arteries, with a normal M1 bifurcation. Normal left M1 and M2 segments of the middle cerebral arteries, with a normal M1 bifurcation. Normal right posterior communicating artery (PCOM). Normal left posterior communicating artery (PCOM). Normal bilateral vertebral arteries. Normal basilar artery with a normal basilar bifurcation. The visualized bilateral superior cerebellar (SCA) arteries are normal. Normal bilateral P1, P2 and visualized P3 segments of the posterior cerebral arteries. There is no demonstrated aneurysm of the [place]. There is no demonstrated abnormality of the visualized brain. AORTIC ARCH: Normal visualized aortic arch. Normal origins of the brachiocephalic, left common carotid, and left subclavian arteries. RIGHT CAROTID ARTERIES: Normal right common carotid artery (CCA). Normal right common carotid bulb. Normal origin of the right internal carotid (ICA) artery without a hemodynamically significant stenosis. Normal visualized cervical portion of the right internal carotid artery. Normal origin of the right external carotid artery (ECA). LEFT CAROTID ARTERIES: Normal left common carotid artery (CCA). Normal left common carotid bulb. Normal origin of the left internal carotid (ICA) artery without a hemodynamically significant stenosis. Normal visualized cervical portion of the left internal carotid artery. Normal origin of the left external carotid artery (ECA). VERTEBRAL ARTERIES: Normal bilateral vertebral arteries. CT/STROKE CTA Head AND Neck W/Con IMPRESSION: Normal CTA Head and neck with contrast. Electronically Signed: Christiano Ordonez MD at 22:15 EST ,
[2023-10-21 21:56] LABS: Absolute Neutrophil Count 4.8 X10^3/uL (2.0-7.7); Basophil# 0.04 X10^3/uL; Basophil% 0.4 % (0-1); Eosinophil# 0.14 X10^3/uL; Eosinophils% 1.5 % (0-5); Hematocrit 40.3 % (37-47); Hemoglobin 13.5 g/dL (12.0-15.0); Lymphocyte % 39.2 % (19-41); Mean Corp Hgb Conc 33.5 g/dL (32-36); Mean Corpuscular Hgb 29.7 pg (27.0-32.0); Mean Corpuscular Volume 88.6 fL (81-99); Mean Platelet Vol. 9.8 fl (6.2-12.0); Monocyte# 0.74 X10^3/uL; Monocyte% 7.8 % (0-10); NRBC Flagged by Analyzer 0 % (0-5); Neutrophil # 4.76 X10^3/uL (2.7-7.7); Neutrophil % 50.6 % (47-70); POSITIVE COUNT YES; Platelet Count 288 K/mm3 (150-450); RBC Distribution Width CV 12.8 % (11.6-14.6); Red Blood Count 4.55 M/mm3 (4.2-5.4); White Blood Count 9.4 K/mm3 (4.4-11.0)
[2023-10-21 21:57] LABS: Differential Indicated SCAN CRITERIA MET
[2023-10-21 22:03] LABS: Bedside Glucose 112 mg/dL (74-106)
[2023-10-21] MEDS: 0.9% Normal Saline (1000mL) 1,000 ML 150 ML IV (22:07)
[2023-10-21 22:14] LABS: AST(SGOT) 36 U/L (15-37); Alanine Aminotransfer ALT/SGPT 47 U/L (13-56); Albumin, Serum 3.2 g/dL (3.2-5.0); Alkaline Phosphatase 101 U/L (45-117); Anion Gap 7 (5-15); BUN 20 mg/dL (7-18); Calcium,Total 9.2 mg/dL (8.5-10.1); Chloride 108 mmol/L (98-107); Creatinine, Serum 0.95 mg/dL (0.55-1.02); EST Glomerular Filtration Rate 67 mL/min (>60); Est Glom Filt Rate - Afr Amer 81 mL/min (>60); Estimated Creatinine Clearance 90.41 ml/min; Globulin 3.9 g/dL (2.2-4.2); Glucose 109 mg/dL (74-106); Lipase 35 U/L (13-75); Potassium 3.8 mmol/L (3.5-5.1); Protein, Total 7.1 g/dL (6.4-8.2); Sodium Level 140 mmol/L (136-145); Troponin-I HS (w/2H Reflex) 8 pg/mL (3.0-54.0)
[2023-10-21 22:18] LABS: Anisocytosis RARE; Platelet Estimate ADEQUATE (ADEQ); Platelet Morphology LARGE; Red Cell Morphology N CHROM NORMAL (NORM C&C)
[2023-10-21] MEDS: 0.9% Saline Lock 10 ML Syringe IV ×2 (22:24→22:26)
[2023-10-21] MEDS: Tenecteplase 25 MG in Syringe 1 EACH 3600 MG IV (22:25)
--- NOTE | 2023-10-21 22:42 | ED.RN ---
This RN into put room about 2134. Pt L side of mouth slightly drooped. RN did NIH assessment, found decreased sensation on L side. Dr. Cardenas notified. Stroke alert called 2144.
--- NOTE | 2023-10-21 23:06 | EX.ED.DYSGE1 ---
HPI History of Present Illness Chief Complaint: Stroke Alert Informant: patient Narrative Narrative: Patient presents secondary to upper abdominal pain and chest pain. She states around 820 or so this evening she developed upper abdominal pain and points to the epigastric region. She states that then came up into the central portion of her chest and feels like a tightness. She does feel short of breath. She reports having shingles recently but has completed her treatment. She was not on steroids. She denies having reflux. She reports history of blood clots in her brother as well as grandparent. Her brother also had prior heart infection as well as a stroke. [facility] Medical History Fibromyalgia Home Medications gabapentin 300 mg capsule 300 mg PO Q12H 10/21/23 [History Last Taken Unknown] Allergy/AdvReac Type Severity Reaction Status Date / Time egg Allergy Other Verified 09/27/23 20:47 prednisone AdvReac Nausea/Vom/ Verified 09/27/23 20:47 Diarrhea Surgical History H/O: hysterectomy Social History Smoking Status: Never smoker ROS ROS ED Constitutional Constitutional ED: Denies chills or fever(s) Eyes Eyes: Denies discharge from eye(s) ENT ENT ED: Denies discharge from eye(s), rhinorrhea or sore throat Cardiovascular Cardiovascular: Reports chest pain; Denies palpitations Respiratory/Chest Respiratory/Chest: Reports dyspnea; Denies cough Gastrointestinal Gastrointestinal: Reports abdominal pain; Denies diarrhea, nausea or vomiting Genitourinary Genitourinary ED: Denies dysuria Musculoskeletal Musculoskeletal: Denies back pain or extremity pain Integumentary Denies Abrasions or rash Neurologic Neurologic: Denies headache(s) or weakness Allergic/Immunologic Allergic/Immunologic ED: Denies lip swelling or urticaria EXAM Physical Exam Const Vital Signs: 10/21/23 21:00 10/21/23 21:00 10/21/23 21:51 Temperature 97.6 F L Temperature Source Temporal Pulse Rate 84 Respiratory Rate 18 Respiratory Effort Short of Breath Blood Pressure 163/77 H Blood Pressure Mean 105 Blood Pressure Source Blood Pressure Position Blood Pressure Location Pulse Ox 99 Oxygen Delivery Method Room Air Room Air 10/21/23 21:52 10/21/23 22:25 10/21/23 22:29 Temperature Temperature Source Pulse Rate 87 Respiratory Rate 17 Respiratory Effort Blood Pressure 146/82 H 118/82 H Blood Pressure Mean 103 Blood Pressure Source Blood Pressure Position Blood Pressure Location Pulse Ox 99 Oxygen Delivery Method Room Air Room Air 10/21/23 22:29 10/21/23 22:30 10/21/23 22:45 Temperature 98 F 97.8 F 97.7 F L Temperature Source Oral Oral Oral Pulse Rate 89 96 87 Respiratory Rate 30 H 12 12 Respiratory Effort Blood Pressure 127/90 H 127/90 H 137/88 H Blood Pressure Mean 102 102 104 Blood Pressure Source Monitor Monitor Monitor Blood Pressure Position Semi-Fowlers Semi-Fowlers Semi-Fowlers Blood Pressure Location Right Forearm Right Forearm Right Forearm Pulse Ox 100 99 98 Oxygen Delivery Method Room Air Room Air Room Air 10/21/23 23:00 Temperature 97.8 F Temperature Source Oral Pulse Rate 89 Respiratory Rate 12 Respiratory Effort Blood Pressure 143/100 H Blood Pressure Mean 114 Blood Pressure Source Monitor Blood Pressure Position Semi-Fowlers Blood Pressure Location Right Forearm Pulse Ox 94 Oxygen Delivery Method Room Air Positive well nourished and well developed General Appearance ED: well developed HEENT Reports moist mucous membranes Eyes EOMs intact bilaterally Chest Wall inspection of chest normal and palpation of chest normal Resp normal respiratory effort and clear to auscultation bilaterally Cardio regular rate and regular rhythm GI GI Narrative: Mild epigastric tenderness palpation. No guarding or rebound. Auscultation: hypoactive bowel sounds Palpation: soft Extremity normal to inspection Neuro oriented x3 Neuro Narrative: Moves all 4 extremities. Slight left facial droop noted at rest, however with speaking no deficits noted. Sensorium / Orientation: alert Skin no rashes or lesions noted MDM MDM MDM Narrative Medical decision making narrative: IV line established. Patient placed on panel monitor. EKG obtained to evaluate for cardiac arrhythmia/ischemia. Chest x-ray obtained to evaluate for acute lung pathology, cardiac size, or mediastinal abnormality. Labwork obtained to evaluate for leukocytosis, anemia, and electrolyte derangement. Patient given aspirin on arrival. While patient was undergoing her workup, I was asked to come back to the patient's room. Patient had pronounced left facial droop with some slurred speech. She reported decreased sensation to light touch on the left. NIH stroke score was completed at that time. She scored a 2 for persistent left facial droop with slight decrease sensation to light touch on the left. Stroke alert was initiated. Patient sent emergently for CT head and CTA of the head and neck. History & Record Review Discussion w/independent historian: Patient and Family Lab Data Attestation: I reviewed the patient's lab results. Labs: Laboratory Results - last 24 hr 10/21/23 10/21/23 21:44 21:49 WBC 9.4 RBC 4.55 Hgb 13.5 Hct 40.3 MCV 88.6 MCH 29.7 MCHC 33.5 RDW Std Deviation 42.0 RDW Coeff of Rebecca 12.8 Plt Count 288 MPV 9.8 Immature Gran % (Auto) 0.500 Neut % (Auto) 50.6 Lymph % (Auto) 39.2 [place] % (Auto) 7.8 Eos % (Auto) 1.5 Baso % (Auto) 0.4 Absolute Neuts (auto) 4.8 Absolute Lymphs (auto) 3.70 Nucleated RBC % 0 Platelet Estimate ADEQUATE Plt Morphology Comment LARGE RBC Morphology N CHROM Anisocytosis RARE D-Dimer Quant (PE/DVT) 1.30 H* Sodium 140 Potassium 3.8 Chloride 108 H Carbon Dioxide 25.0 Anion Gap 7 BUN 20 H Creatinine 0.95 Estim Creat Clear Calc 90.41 Est GFR (MDRD) Af Amer 81 Est GFR (MDRD) Non-Af 67 BUN/Creatinine Ratio 21.0 H Glucose 109 H Calcium 9.2 Total Bilirubin 0.20 Direct Bilirubin 0.10 AST 36 ALT 47 Alkaline Phosphatase 101 Troponin I High Sens 8 Total Protein 7.1 Albumin 3.2 Globulin 3.9 Lipase 35 POC Glucose 112 H Radiography Chest X-Ray - ED: 1 View, Read by ED Physician, Normal, Heart, Lungs and Mediastinum Diagnostic Testing: Clinical Impression(s) from Imaging Studies Chest X-Ray 10/21/23 21:39 IMPRESSION: Normal x-ray examination of the chest. Electronically Signed: Christiano Ordonez MD at 22:09 EST , Brain CT 10/21/23 21:45 IMPRESSION: Negative Brain CT without contrast. N.B. : The above Results were Read Back by Christiano Ordonez MD to Nadia Yao MD, and understanding confirmed on 10/21/2023 22:02:21 (ET). Electronically Signed: Christiano Ordonez MD at 22:02 EST , ADDENDUM: 10/21/23 2209 IMPRESSION: Negative Brain CT without contrast. N.B. : The above Results were Read Back by Christiano Ordonez MD to Nadia Yao MD, and understanding confirmed on 10/21/2023 22:02:21 (ET). Electronically Signed: Christiano Ordonez MD at 22:02 EST , Head/Neck CTA 10/21/23 21:46 IMPRESSION: Normal CTA Head and neck with contrast. Electronically Signed: Christiano Ordonez MD at 22:15 EST , ADDENDUM: 10/21/23 2232 IMPRESSION: Normal CTA Head and neck with contrast. N.B. : Dr. Nadia Yao MD, confirmed on 10/21/2023 22:25:21 (ET) that the referring physician received the results and does not require a verbal communication. Electronically Signed: Christiano Ordonez MD at 22:15 EST , EKG Initial EKG: Attestation: I personally reviewed and interpreted this EKG as follows: Interpretation: Sinus Rhythm (Sinus 85 with no acute ischemia.) Treatment and Re-Evaluation :: CBC was a white count of 9.4 with a hemoglobin of 13.5. Normal differential. D-dimer elevated at 1.3. Chemistry studies unremarkable with normal renal function. Glucose is 109. LFTs and lipase are normal. Troponin is normal at 8. Portable chest x-ray per my interpretation reveals chronic changes with no focal infiltrate. Radiology interpretation reviewed and agrees. CT of the head is unremarkable as well as CTA of the head and neck. Neurologist from [facility] beamed and examined the patient. He is not sure if this is acute stroke versus stress related reaction. He gave the patient the option of receiving TNK if she felt like this was a life altering symptom. She did elect to receive TNK and this was given. I will speak with hospitalist regarding admission for further workup. At this time patient's NIH score is 0 and she states she feels much better. Discharge Plan Triage Chief Complaint: Stroke Alert Other Complaint: Chest Pain ED Provider: Nadia Cardenas Dx/Rx/DC Orders Clinical Impression: Chest pain, Stroke Prescriptions: No Action gabapentin 300 mg capsule 300 mg PO Q12H Patient Comments: take 1 capsule by mouth twice a day Primary Care Provider: Mike Mercado Referrals: Mike Mercado MD [Primary Care Provider] - Disposition Disposition: Acute Care Hospital [facility]
--- NOTE | 2023-10-21 23:34 | PCM.HP.STD ---
HPI - General General Date of Admission: 10/21/23 Date of Service: 10/21/23 Chief Complaint: Chest pain, epigastric pain, onset facial droop/slurred speech while in the ED. HPI Narrative The patient is a 48 y/o F w/ PMHx: Morbid obesity, Fibromyalgia on chronic gabapentin who presents to the [facility] ED on 10/21/23 with onset of upper abdominal discomfort and chest discomfort starting at approximately 820 in the evening with chest discomfort described as a tightness with dyspnea associated with recent shingles however she reports completing recent treatments although she denies having been on any steroids with no reflux history and given not improving prompted eventual ED evaluation. She did report a history of VTE in her brother as well as a grandparent. In the ED while patient was undergoing her workup she had sudden onset of pronounced left facial droop and slurred speech with decreased sensation to the left side with NIH stroke score at that time 2 for persistent left facial droop and slight decrease sensation with stroke alert initiated. She notes the discomfort in her chest at its worst was 10 out of 10 in severity described as sharp stabbing and also pressure-like in sensation with associated dyspnea. She currently notes she has very mild discomfort more like pressure sensation in her lower midsternal region although with pressure and palpation she does have reproduction of the symptoms of note. Upon evaluation of left lateral side where she had a recent shingles outbreak it looks completely resolved. Workup in the ED included T97.6, heart rate 84, BP initially 163/77, respiratory rate 18, 99% on room air with most recent repeat vitals T98.6, heart rate 94, BP 133/93, respiratory rate 13, 98% on room air, CBC with WBC 9.4, hemoglobin 13.5, platelet 288 without marked shift, coags with D-dimer 1.30, CMP with chloride 108, BUN/creatinine 20/0.95, glucose 109, hepatic profile not marked appearing, troponin 8, chest x-ray with no acute cardiopulmonary findings, CT brain with no acute intracranial findings, CTA head and neck noted to be normal, EKG was sinus rhythm with no acute evidence of ischemia. ED did have stroke alert on this patient and [facility] neurology was involved with discussions as to whether not acute stroke versus stress related reaction with option to the patient for consideration of TNK with election to proceed with this. Most recent NIH stroke scale 0. In the ED patient administered tenecteplase as well as maintenance IV fluids. [facility] Medical History Fibromyalgia Morbid obesity Home Medications gabapentin 300 mg capsule 300 mg PO Q12H 10/21/23 [History Last Taken Unknown] Allergy/AdvReac Type Severity Reaction Status Date / Time egg Allergy Other Verified 09/27/23 20:47 prednisone AdvReac Nausea/Vom/ Verified 09/27/23 20:47 Diarrhea Family History (Updated 10/22/23 @ 00:[address] Ioana Griffiths MD) Mother Rheumatoid arthritis Hypertension Father Hypertension Grandmother VTE (venous thromboembolism) Maternal grandmother. Brother VTE (venous thromboembolism) CVA (cerebral vascular accident) Hypertension Surgical History (Updated 10/22/23 @ 00:[address] Ioana Griffiths MD) H/O tubal ligation H/O: hysterectomy S/P tonsillectomy and adenoidectomy Social History (Updated 10/21/23 @ 23:[address] Ioana Griffiths MD) household members: spouse Smoking Status: Never smoker alcohol intake: never substance use type: does not use ROS ROS Narrative Admission Review of Systems: CONSTITUTIONAL: No weight loss, fever, chills, + weakness or fatigue. HEENT: Eyes: No visual loss, blurred vision, double vision or yellow sclerae. Ears, Nose, Throat: No hearing loss, sneezing, congestion, runny nose or sore throat. SKIN: No rash or itching, lesions, wounds except for + resolved/healed left lateral flank status post recent shingles outbreak, all lesions healed. CARDIOVASCULAR: + chest pain, chest pressure or chest discomfort. No palpitations, edema, orthopnea, syncopal events. RESPIRATORY: + shortness of breath. No cough or sputum, wheezing, hemoptysis. GASTROINTESTINAL: No anorexia, nausea, vomiting or diarrhea, abdominal pain, melena, BRBPR. GENITOURINARY: No dysuria, frequency, urgency or retention. NEUROLOGICAL: + Transient facial droop, altered speech, sensation alteration. No headache, dizziness, syncope, change in bowel or bladder control, seizure. MUSCULOSKELETAL: + muscle, back pain, joint pain or stiffness. HEMATOLOGIC: No anemia, bleeding or bruising. LYMPHATICS: No enlarged nodes. No history of splenectomy. PSYCHIATRIC: No history of depression or anxiety. ENDOCRINOLOGIC: No reports of sweating, cold or heat intolerance. No polyuria or polydipsia. ALLERGIES: No history of asthma, hives, eczema or rhinitis. Vital Signs Vital Signs Vital Signs: 10/21/23 21:00 10/21/23 21:00 10/21/23 21:51 Temperature 97.6 F L Temperature Source Temporal Pulse Rate 84 Respiratory Rate 18 Respiratory Effort Short of Breath Blood Pressure 163/77 H Blood Pressure Mean 105 Blood Pressure Source Blood Pressure Position Blood Pressure Location Pulse Ox 99 Oxygen Delivery Method Room Air Room Air 10/21/23 21:52 10/21/23 22:25 10/21/23 22:29 Temperature Temperature Source Pulse Rate 87 Respiratory Rate 17 Respiratory Effort Blood Pressure 146/82 H 118/82 H Blood Pressure Mean 103 Blood Pressure Source Blood Pressure Position Blood Pressure Location Pulse Ox 99 Oxygen Delivery Method Room Air Room Air 10/21/23 22:29 10/21/23 22:30 10/21/23 22:45 Temperature 98 F 97.8 F 97.7 F L Temperature Source Oral Oral Oral Pulse Rate 89 96 87 Respiratory Rate 30 H 12 12 Respiratory Effort Blood Pressure 127/90 H 127/90 H 137/88 H Blood Pressure Mean 102 102 104 Blood Pressure Source Monitor Monitor Monitor Blood Pressure Position Semi-Fowlers Semi-Fowlers Semi-Fowlers Blood Pressure Location Right Forearm Right Forearm Right Forearm Pulse Ox 100 99 98 Oxygen Delivery Method Room Air Room Air Room Air 10/21/23 23:00 10/21/23 23:15 Temperature 97.8 F 98.6 F Temperature Source Oral Oral Pulse Rate 89 94 Respiratory Rate 12 13 Respiratory Effort Blood Pressure 143/100 H 133/93 H Blood Pressure Mean 114 106 Blood Pressure Source Monitor Monitor Blood Pressure Position Semi-Fowlers Semi-Fowlers Blood Pressure Location Right Forearm Right Forearm Pulse Ox 94 98 Oxygen Delivery Method Room Air Room Air Weight Weight: 268 lb 8.368 oz Body Mass Index (BMI) 50.7 Physical Exam Narrative Physical Examination: General: Awake, alert, oriented x 3 and cooperative, seated upright in the ED bed in no apparent distress does note she had significant anxiety with onset of the neurological symptoms but is improved currently. Skin: Normal color, normal turgor, no icterus, no cyanosis, resolved left flank shingles lesions, healed over. HEENT: AT/NC, EOMI, PERRLA, mildly dry MM, no carotid bruits or JVD noted; however thickened neck makes evaluation difficult. Lungs: CTA bilaterally, moderate effort, mild decrease BL bases, no rales, ronchi or wheezing. Heart: Regular rate and rhythm; no gallop, rub audible, reproducible discomfort with palpation of the mid and lower sternal region of note. Abdomen: Soft, morbidly obese, NTTP, ND, mildly hyperactive BS, no appreciated HSM however habitus makes evaluation difficult. Extremities: No cyanosis, no clubbing, mild peripheral not markedly pitting ankle edema. Neurological: Patient awake, alert, oriented as noted, cognitive function intact; pupils equally reactive to light and accommodation, cranial nerves grossly normal, moving all 4 extremities, no focal deficits, strength preserved, finger-nose and [id number] appropriate, sensation intact, speech appropriate, no residual neurological deficits noted. Psychiatric: Affect appears fatigued otherwise normal, no acute evidence of depressive or anxiety feelings. Results Lab / Micro Data 10/21/23 21:49 10/21/23 21:49 Labs: Laboratory Results - last 24 hr 10/21/23 21:44: POC Glucose 112 H 10/21/23 21:49: WBC 9.4, RBC 4.55, Hgb 13.5, Hct 40.3, MCV 88.6, MCH 29.7, MCHC 33.5, RDW Std Deviation 42.0, RDW Coeff of Rebecca 12.8, Plt Count 288, MPV 9.8, Immature Gran % (Auto) 0.500, Neut % (Auto) 50.6, Lymph % (Auto) 39.2, [place] % (Auto) 7.8, Eos % (Auto) 1.5, Baso % (Auto) 0.4, Absolute Neuts (auto) 4.8, Absolute Lymphs (auto) 3.70, Nucleated RBC % 0, Platelet Estimate ADEQUATE, Plt Morphology Comment LARGE, RBC Morphology N CHROM, Anisocytosis RARE, D-Dimer Quant (PE/DVT) 1.30 H*, Sodium 140, Potassium 3.8, Chloride 108 H, Carbon Dioxide 25.0, Anion Gap 7, BUN 20 H, Creatinine 0.95, Estim Creat Clear Calc 90.41, Est GFR (MDRD) Af Amer 81, Est GFR (MDRD) Non-Af 67, BUN/Creatinine Ratio 21.0 H, Glucose 109 H, Calcium 9.2, Total Bilirubin 0.20, Direct Bilirubin 0.10, AST 36, ALT 47, Alkaline Phosphatase 101, Troponin I High Sens 8, Total Protein 7.1, Albumin 3.2, Globulin 3.9, Lipase 35 Imaging Radiology Impression Chest X-Ray 10/21/23 21:39 IMPRESSION: Normal x-ray examination of the chest. Electronically Signed: Christiano Ordonez MD at 22:09 EST , Brain CT 10/21/23 21:45 IMPRESSION: Negative Brain CT without contrast. N.B. : The above Results were Read Back by Christiano Ordonez MD to Nadia Yao MD, and understanding confirmed on 10/21/2023 22:02:21 (ET). Electronically Signed: Christiano Ordonez MD at 22:02 EST Reading Location ID and State: [facility] / [place] , Service support , ADDENDUM: 10/21/23 2209 IMPRESSION: Negative Brain CT without contrast. N.B. : The above Results were Read Back by Christiano Ordonez MD to Nadia Yao MD, and understanding confirmed on 10/21/2023 22:02:21 (ET). Electronically Signed: Christiano Ordonez MD at 22:02 EST , Head/Neck CTA 10/21/23 21:46 IMPRESSION: Normal CTA Head and neck with contrast. Electronically Signed: Christiano Ordonez MD at 22:15 EST , ADDENDUM: 02/23/24 2232 IMPRESSION: Normal CTA Head and neck with contrast. N.B. : Dr. Nadia Yao MD, confirmed on 10/21/2023 22:25:21 (ET) that the referring physician received the results and does not require a verbal communication. Electronically Signed: Christiano Ordonez MD at 22:15 EST , Assessment & Plan Assessment/Plan (1) Stroke: (2) Chest pain: PLAN: Plan The patient is a 48 y/o F w/ PMHx: Morbid obesity, Fibromyalgia on chronic gabapentin who presents to the [facility] ED on 10/21/23 with onset of upper abdominal discomfort and chest discomfort starting at approximately 820 in the evening with chest discomfort described as a tightness with no dyspnea associated with recent shingles however she reports completing recent treatments although she denies having been on any steroids with no reflux history and given not improving prompted eventual ED evaluation. She did report a history of VTE in her brother as well as a grandparent. #1. Transient left-sided facial droop, slurred speech eventually resolved concerning for CVA status post TNK administration: Patient was initiated on TNK in the ED. 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 Will allow permissive HTN, once assured repeat CT head versus MRI with no acute intracranial bleeding will initiate aspirin therapy, will maintain in the interim on statin w/ AM FLP, fall precautions. Mag, TSH, FLP, HgbA1c requested. Maintain on fall and aspiration precautions. Continue neurology consultation. #2. Chest Pain with elevated D-dimer of unclear significance with VTE notable family history: EKG in ED sinus rhythm with no acute evidence of ischemia, CXR w/ no acute cardiopulmonary findings, initial trop 8. Will place on a monitored bed to assure no acute myocardial infarction with serial cardiac enzymes and EKGs. Given CTA head already performed with contrast patient cannot at this time have repeat CTA chest. Will request duplex ultrasound in the a.m. however at the 24-hour jose may reconsider CTPA to further assess. Given recent TNK we will continue to closely monitor as patient cannot be anticoagulated at this point. Magnesium level requested. FLP in AM with statin initiated as noted #1. Did request that patient talk to her brother and find out if potentially he had a hypercoagulable panel done and if this was to relay the results to the hospitalist physician. #3. Elevated BP without hypertensive diagnosis: Given acute presentation we will continue permissive hypertension with as needed agents per stroke protocol. #4. Morbid Obesity: Weight loss and lifestyle changes encouraged, nutrition consulted. #5. Fibromyalgia: Encourage continued outpatient evaluation. #6. Recent left lateral flank shingles outbreak, resolved: We will continue patient gabapentin regimen. #7. Prophylaxis: SCDs. #8. CODE STATUS: Full code. Charges/Coding Visit Charges Inpatient E&M: 01267 Init Hosp L3
--- NOTE | 2023-10-21 23:41 | VDLE_ITS ---
Reason For Study: Elevated D-dimer RIGHT LEFT GSV is normal. GSV is normal. CFV is compressible, spontaneous, phasic, CFV is compressible, spontaneous, phasic, competent and demonstrates normal competent, and demonstrates normal augmentation. augmentation. FV is compressible, spontaneous, phasic, FV is compressible, spontaneous, phasic, competent and demonstrates normal competent and demonstrates normal augmentation. augmentation. POP V is compressible, spontaneous, phasic, POP V is compressible, spontaneous, phasic, competent and demonstrates normal competent and demonstrates normal augmentation. augmentation. T/P Trunk is compressible. T/P Trunk is compressible. PTV is compressible. PTV is compressible. RT PerV is compressible. LT PerV is compressible. Procedure This is a venous duplex using B-mode, color flow and spectral Doppler. Exam performed portable in ICU/CCU. A preliminary report was called and/or faxed to Javier VELÁZQEUZ. VL/Venous Duplex US - Ryan Extrem Interpretation Summary No evidence for acute deep venous thrombosis bilateral lower extremities with p atent and compressible bilateral great saphenous veins. Ordering Physician: Ioana Griffiths Referring Physician: Vinod Mercado Performed By: Apryl Shukla RVT
[2023-10-21 23:50] LABS: Reflex Troponin-HS? (from REC) Y
--- OUTSIDE RECORDS SUMMARY | 2023-10-21 23:55 | XMS RPT_ITS | CCD ---
Author Name Unknown Address [address] [place] [address] Organization [facility] Care Team Providers Care Regroover Name Role Phone Manda Canales MD Primary [...] Translations: [BANANA] Drug Allergy 2 GI Upset [facility] Work Phone: (7 sources) egg extract; Translations: [EGG] Drug Allergy 2 GI Upset [facility] Work Phone: (7 sources) Lactose; Translations: [LACTOSE] Drug Allergy 2 Intolerance [facility] Work Phone: (7 sources) predniSONE; Translations: [PREDNISONE] Drug Allergy 9 Other: See Comments [facility] Work Phone: (5 sources) ENVIRONMENTAL [Other] Propensity to adverse reactions 5 [facility] Work Phone: (1 source) OTHER; Translations: [OTHER] Propensity to adverse reactions (disorder) 5 [facility] Repository Medications Current Medications Medication Drug Class(es) [...] Sign Value Performing Clinician Faci lity 10-08-2023 10:190500 Body temperature 97.5 [degF] Manda Canales MD Work Phone: [facility] 10-08-2023 10:19-050 Body weight 118.66 kg Manda Canales MD Work Phone: [facility] 10-08-2023 10:19-0500 Diastolic blood pressure 68 mm[Hg] Manda Canales MD Work Phone: [facility] 10-08-2023 10:19-0500 Heart rate 90 /min Manda Canales MD Work Phone: [facility] 10-08-2023 10:19-0500 Respiratory rate 16 /min Manda Canales MD Work Phone: [facility] 10-08-2023 10:19-0500 SaO2% (BldA) [Mass fraction] 97 % Manda Canales MD Work Phone: [facility] 10-08-2023 10:19-0500 Systolic blood pressure 118 mm[Hg] Manda Canales MD Work Phone: [facility] 10-22-2022 07:57-0500 Body height 160 cm Manda Canales MD Work Phone: [facility] 10-22-2022 07:57-0500 Body weight 116.39 kg Manda Cnaales MD Work Phone: [facility] 10-22-2022 07:57-0500 Diastolic blood pressure 74 mm[Hg] Manda Canales MD Work Phone: [facility] 10-22-2022 07:57-0500 Heart rate 91 /min Manda Canales MD Work Phone: [facility] 10-22-2022 07:57-0500 Respiratory rate 16 /min Manda Canales MD Work Phone: [facility] 10-22-2022 07:57-0500 SaO2% (BldA) [Mass fraction] 97 % Manda Canales MD Work Phone: [facility] 10-22-2022 07:57-0500 Systolic blood pressure 108 mm[Hg] Manda Canales MD Work Phone: [facility] 09-01-2022 19:01-0500 Body temperature 98.8 [degF] Jorgito Horta MD Work Phone: [facility] 09-01-2022 19:01-0500 Body weight 115.39 kg Jorgito Horta MD Work Phone: [facility] 09-01-2022 19:01-0500 Diastolic blood pressure 82 mm[Hg] Jorgito Horta MD Work Phone: [facility] 09-01-2022 19:01-0500 Heart rate 93 /min Jorgito Horta MD Work Phone: [facility] 09-01-2022 19:01-0500 Respiratory rate 20 /min Jorgito Horta MD Work Phone: [facility] 09-01-2022 19:01-0500 SaO2% (BldA) [Mass fraction] 97 % Jorgito Horta MD Work Phone: [facility] 09-01-2022 19:01-0500 Systolic blood pressure 128 mm[Hg] Jorgito Horta MD Work Phone: [facility] Encounters Encounter Date Encounter Type Care Provider Facility Start: 10-08-2023 End: 10-08-2023 ambulatory MANDA CANALES Facility:[facility] Start: 10-08-2023 End: 10-08-2023 Patient encounter procedure Manda Canales MD Work Phone: [facility] Procedures Date Procedure Procedure Detail Performing Clinician Start: 10-22-2022 Lipid 1996 panel - S saima or Plasma Manda Canales MD Work Phone: Start: 09-01-2022 COVID WITH FLUA+B, ROUTINE Jorgito Horta MD Work Phone: Start: 07-04-2019 Mammography Jorgito esparza MD Work Phone: Start: 07-03-2019 Colonoscopy Jorgito esparza MD Work Phone: Plan of Treatment Date Care Activity Detail Author Start: 06-28-2029 Urine microalbumin profile [facility] Start: 10-22-2027 Lipid panel Lipid Screening [facility] Start: 10-22-2027 LIPID SCREEN LIPID SCREEN [facility] Start: 11-24-2025 LIPID SCREEN LIPID SCREEN [facility] Start: 10-22-2025 DIABETES SCREEN DIABETES SCREEN [facility] Start: 10-22-2025 Diabetes Screening Diabetes Screenin g [facility] Start: 07-03-2024 Colonoscopy COLONOSCOPY [facility] Start: 07-03-2024 COLORECTAL CANCER SCREENING COLORECTAL CANCER SCREENING [facility] Start: 07-03-2024 Screening for malign ant neoplasm of colon [facility] Start: 11-25-2023 DIABETES SCREEN DIABETES SCREEN [facility] Start: 10-22-2023 COVID-19 VACCINE (#1) COVID-19 VACCI NE (#1) [facility] Immunizations Immunization Date Immunization Notes Care Provider Fa cility 06-28-2019 tetanus toxoid, redu mandi diphtheria toxoid, and acellular pertussis vaccine, adsorbed Jorgito Horta MD Work Phone: [facility] 11-10-2016 influenza virus vaccine, unspecified formulation Manda Canales MD Work Phone: [facility] 11-10-2014 tetanus and diphther ia toxoids, not adsorbed, for adult use Jorgito Horta MD Work Phone: [facility] Payers Date Payer Category Payer Unknown [id number] 2020 Private Health Insurance [id number] 2020 Private Health Insurance [id number] Social History Date Type Detail Facility Start: 09-01-2022 Tobacco smoking stat us NMIS Ex-smoker [facility] End: 03-23-1993 History of tobacco use Current smoker [facility] End: 03-23-1993 History of tobacco use Cigarette Smoker [facility] Start: 09-01-2022 Tobacco use and exposure Smoke less tobacco non-user [facility] Start: 09-01-2022 End: 10-08-2023 Alcohol intake Current drinker of alcohol (finding) [facility] Start: 10-07-2020 End: 10-19-2022 History SDOH Alcohol Frequency 2 [facility] Start: 10-07-2020 End: 10-19-2022 History SDOH Alcohol Std Drinks 1 [facility] Start: 10-07-2020 History SDOH Social Connections Phone 98 [facility] Start: 10-07-2020 End: 10-19-2022 History SDOH Social Connections Living 3 [facility] Start: 10-07-2020 End: 10-19-2022 History SDOH Financial 5 [facility] Start: 10-06-2020 Education 21 [facility] Start: 06-28-2019 Alcohol Comment rarely Hanna duran [facility] Start: 1975 Sex Assigned At Female C [facility] Start: 10-22-2022 Alcohol Comment once per month Roberto Carlos [facility] Start: 10-18-2022 End: 04-08-2023 History of Social function [facility] Start: 10-18-2022 End: 04-08-2023 Social connection and isolation panel [facility] Do you belong to any clubs or organizations such as uatsdin groups, unions, fraternal or athletic groups, or school groups? No [facility] Are you now , , , , never or living with a partner? [facility] How often to you hav e a drink containing alcohol? Monthly or less [facility] How many standard dr inks containing alcohol do you have on a typical day? 1 or 2 [facility] How often do you hav e 6 or more drinks on 1 occasion? Never [facility] How hard is it for y ou to pay for the very basics like food, housing, medical care, and heating Not hard at all [facility] Do you feel stress - tense, restless, nervous, or anxious, or unable to sleep at night because your mind is troubled all the time - these days [OSQ] To some extent [facility] (I/We) worried wheth er (my/our) food would run out before (I/we) got money to buy more. Never true [facility] Start: 10-06-2020 Gender identity Identifies as female gender (finding) [facility] Start: 10-06-2020 Sexual orientation Heterosexual (ruth reina) [facility] Clinical Notes 08-29-2000 to 10-08-2023 Manda Canales MD - 10/08/2023 10:17 AM ESTTelephone Encounter - Lalita Hagan LPN - 10/25/2022 5:00 PM ESTTelephone Encounter - Manda Canales MD - 10/25/2022 3:43 PM EST Note Date & Type Note Facility 10-08-2023 Note HNO ID: [id number] Author: MANDA CANALES MD Service: ? Author [...] with shingles rash along T6 dermatome at [facility] ED on 09/27. Pain started 4 [...] rectal bleeding resolved after hysterectomy. GI in [place] Depression Dysfunctional uterine bleeding 2006 s/p hysterectomy Dysmenorrhea Eczema Esophageal reflux Gastroesophageal reflux Fibromyalgia Generalized anxiety disorder Lactose intolerance Lichen sclerosus Morbid obesity (HCC) Other acne Acne Recurrent cold sores Scalp psoriasis Vitamin D insufficiency Previous Surgical History PAST SURGICAL HISTORY Procedure Laterality Date COLONOSCOPY 2009 multiple for crohns disease. [place]. Benign polyp COLONOSCOPY 09/21/2005 active colitis at [...] due on 06/28/20 (more content not included)... [facility] 10-08-2023 History of Presen t illness Narrative Chief Complaint Patient presents with: ER F/U: Shingles- patient also has left eye issue wondering if shingle related as shingle developed on Left side. HPI Zunilda Leon is a 48 year old female who presents here today for Above Complaints.. Patient diagnosed with shingles rash along T6 dermatome at [facility] ED on 09/27. Pain started 4 [...] rectal bleeding resolved after hysterectomy. GI in [place] Depression Dysfunctional uterine bleeding 2006 s/p hysterectomy Dysmenorrhea Eczema Esophageal reflux Gastroesophageal reflux Fibromyalgia Generalized anxiety disorder Lactose intolerance Lichen sclerosus Morbid obesity (HCC) Other acne Acne Recurrent cold sores Scalp psoriasis Vitamin D insufficiency Previous Surgical History PAST SURGICAL HISTORY Procedure Laterality Date COLONOSCOPY 2009 multiple for crohns disease. [place]. Benign polyp COLONOSCOPY 09/21/2005 active colitis at [...] Manda Canales MD documented in this encounter [facility] 09-07-2023 Note Patient Outreach (IN [facility]) ZUNILDA LEON ([id number]) 1975 F Date Time Provider Department 09/07/23 [...] for screening mammogram for breast cancer [Z12.31] Order(s):[facility] SCREENING [[id number]] Order #: [id number] FUTURE Prescriptions as of 09/12/2023 - clobetasol [...] D insufficiency [E55.9] 10/25/2022 Encounter Status:Closed by [employer] PRODUSER on 09/12/23 [facility] 10-25-2022 Miscellaneous Notes Patient notified of [...] Esha Flores RN documented in this encounter [facility] 10-22-2022 Note HNO ID: [id number] Author: Manda Canales MD Service: ? Author [...] Date COLONOSCOPY 2009 multiple for crohns disease. [place]. Benign polyp COLONOSCOPY 09/21/2005 active colitis at [...] Negative for ch (more content not included)... [facility] 10-22-2022 History of Presen t illness [...] Date COLONOSCOPY 2009 multiple for crohns disease. [place]. Benign polyp COLONOSCOPY 09/21/2005 active colitis at [...] No history of dysuria, frequency or incontinence [employer]: Negative for abnormal vaginal bleeding, abnormal vaginal [...] discoloration, clubbing or cyanosis. Good capillary refill. [employer]: Patient deferred exam Musculoskeletal: No joint swelling, [...] diet of 1000 mg/day for under 50, 9450-9576 mg/day for 50+ - Discussed need and [...] as requested. Recommended she follow up with [employer] for persistent rash since she is refusing exam today. 7. HSV-1 (herpes simplex virus 1) infection - ICD9: 054.9, ICD10: B00.9 See above. Manda Canales MD documented in this encounter [facility] 09-01-2022 History of Presen t illness Narrative [...] Jorgito Horta MD documented in this encounter [facility] documented as of this encounter (statuses as of 09/03/2022) [facility] History of Past illness Narrative* Problem Noted Date Resolved Date Crohn's disease 08/29/2000 07/03/2019 Overview: crohns disease, rectal bleeding, resolved after hysterectomy. documented as of this encounter (statuses as of 10/04/2022) [facility] History of Past illness Narrative* Problem Noted Date Resolved Date Crohn's disease 08/29/2000 07/03/2019 Overview: crohns disease, rectal bleeding, resolved after hysterectomy. documented as of this encounter (statuses as of 10/26/2022) [facility] History of Past illness Narrative* Problem Noted Date Resolved Date Crohn's disease 08/29/2000 07/03/2019 Overview: crohns disease, rectal bleeding, resolved after hysterectomy. documented as of this encounter (statuses as of 10/28/2022) [facility] History of Past illness Narrative* Problem Noted Date Diagnosed Date Resolved Date Crohn's disease 08/29/2000 07/03/2019 Overview: crohns disease, rectal bleeding, resolved after hysterectomy. documented as of this encounter (statuses as of 09/12/2023) [facility] History of Past illness Narrative* Problem Noted Date Diagnosed Date Resolved Date Crohn's disease 08/29/2000 07/03/2019 Overview: crohns disease, rectal bleeding, resolved after hysterectomy. documented as of this encounter (statuses as of 10/08/2023) [facility] Diagnosis Influenza-like illness- Primary Influenza with other respiratory manifestations Costochondritis Tietze's disease [facility]* Diagnosis Encounter for screening mammogram for breast cancer [facility] Diagnosis Vitamin D insufficiency- Primary Unspecified vitamin D deficiency Elevated AST (SGOT) Nonspecific elevation of levels of transaminase or lactic acid dehydrogenase (LDH) Neutropenia, unspecified type (HCC) [facility] Diagnosis Annual physical exam- Primary Routine general medical examination at a health care facility Gastroesophageal reflux disease, unspecified whether esophagitis present Generalized anxiety disorder Morbid obesity (HCC) Morbid obesity Recurrent cold sores Herpes simplex without mention of complication Lichen sclerosus 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 Herpes simplex without mention of complication [facility] Diagnosis Encounter for screening mammogram for breast cancer [facility] Diagnosis Herpes zoster without complication- Primary Herpes zoster without mention of complication Post herpetic neuralgia Herpes zoster with other nervous system complications Bacterial conjunctivitis Other conjunctivitis documented in this encounter [facility] for referral (narrative)* Diagnostic Procedure Only (Routine) - Pending Review Specialty Diagnoses / Procedures Referred By Court goodwin Referred To Contact [facility] Diagnoses Encounter for screening mammogram for breast cancer Procedures MONY SCREENING SCREENING MAMMOGRAPHY BI 2-VIEW BREAST INC CAD Manda Canales MD [address] [place] [address] [facility] [address] [place] [id number] Referral ID Status Reason Start Date Expiration Date Visits Requested Visits Authorized [id number] Pending Review Auto-Generat ed Referral 09/29/2022 10/29/2023 1 1 [facility] Diagnostic Procedure Only (Routine) - Pending Review Specialty Diagnoses / Procedures Referred By Contac t Referred To Contact [facility] Diagnoses Encounter for screening mammogram for breast cancer Procedures MONY SCREENING SCREENING MAMMOGRAPHY BI 2-VIEW BREAST INC CAD Manda Canales MD [address] [place] [address] [facility] [address] [place] [address] Referral ID Status Reason Start Date Expiration Date Visits Requested Visits Authorized [id number] Pending Review Auto-Generat ed Referral 09/07/2023 10/06/2024 1 1 [facility] Health Concerns Infection Onset Date Last Indicated [...] or prosecute any alcohol or drug abuse patient.[facility] the event this information is protected by the Federal Confidentiality of Alcohol and Drug Abuse Patient Records regulations: The Federal rules restrict any use of the information to criminally investigate or prosecute any alcohol or drug abuse patient.[facility] the event this information is protected by the Federal Confidentiality of Alcohol and Drug Abuse Patient Records regulations: The Federal rules restrict any use of the information to criminally investigate or prosecute any alcohol or drug abuse patient.[facility] the event this information is protected by the Federal Confidentiality of Alcohol and Drug Abuse Patient Records regulations: The Federal rules restrict any use of the information to criminally investigate or prosecute any alcohol or drug abuse patient.[facility] the event this information is protected by the Federal Confidentiality of Alcohol and Drug Abuse Patient Records regulations: The Federal rules restrict any use of the information to criminally investigate or prosecute any alcohol or drug abuse patient.[facility] the event this information is protected by the Federal Confidentiality of Alcohol and Drug Abuse Patient Records regulations: The Federal rules restrict any use of the information to criminally investigate or prosecute any alcohol or drug abuse patient.[facility] Reason for Visit (unrecogniz ed section and content) Reason Comments Results Reason Comments Physical Wanting to discuss w eight loss options. Reason Comments ER F/U Shingles- patient al so has left eye issue wondering if shingle related as shingle developed on Left side. Care Teams (unrecognized sec tion and content) Regroover Relationship Specialty Start Date End Date Manda Canales MD [address] [place], [place] [id number] PCP - General Family Medicine 06/28/19 Regroover Relationship Specialty Start Date End Date Manda Canales MD [address] [place], [place] [address] PCP - General Family Medicine 06/28/19 Regroover Relationship Specialty Start Date End Date Manda Canales MD [address] [place] [address] PCP - General Family Medicine 06/28/19 Regroover Relationship Specialty Start Date End Date Manda Canales MD [address] [place] [address] PCP - General Family Medicine 06/28/19 Regroover Relationship Specialty Start Date End Date Manda Canales MD [address] [place], [place] [id number] PCP - General Family Medicine 06/28/19 INFORMATION [...] BE BASED ON THE PRIMARY CLINICAL RECORDS. [facility]. provides no warranty or guarantee of the accuracy or completeness of information in this document.
[2023-10-22] VITALS (32 sets, daily range): BP systolic 104–155; BP diastolic 50–104; PULSE 67–94; RESP 9–22; TEMP 36.2–37; O2SAT 94–100; BMI 49.8
[2023-10-22 00:04] LABS: Magnesium 2.2 mg/dL (1.6-2.6)
--- OUTSIDE RECORDS SUMMARY | 2023-10-22 00:08 | XMS RPT_ITS | CCD ---
Author Name Unknown Address [address] [place] [address] Organization [facility] Care Team Providers Care Rug Sample Beveler Name Role Phone Manda Canales MD Primary [...] GI Upset [facility] Work Phone: (7 sources) egg extract; Translations: [EGG] Drug Allergy 2 GI Upset [facility] Work Phone: (7 sources) Lactose; Translations: [LACTOSE] Drug Allergy 2 Intolerance [facility] Work Phone: (7 sources) predniSONE; Translations: [PREDNISONE] Drug Allergy 9 Other: See Comments [facility] Work Phone: (5 sources) ENVIRONMENTAL [Other] Propensity to adverse reactions 5 [facility] Work Phone: (1 source) OTHER; Translations: [OTHER] Propensity to adverse reactions (disorder) 5 [facility] Repository Medications Current Medications Medication Drug Class(es) [...] Work Phone: [facility] 10-08-2023 10:19-050 Body weight 118.66 kg Manda Canales MD Work Phone: [facility] 10-08-2023 10:19-0500 Diastolic blood pressure 68 mm[Hg] Manda Canales MD Work Phone: [facility] 10-08-2023 10:19-0500 Heart rate 90 /min Manda Canales MD Work Phone: [facility] 10-08-2023 10:19-0500 Respiratory rate 16 /min Manda Canales MD Work Phone: [facility] 10-08-2023 10:19-0500 SaO2% (BldA) [Mass fraction] 97 % Manda Canales MD Work Phone: [facility] 10-08-2023 10:19-0500 Systolic blood pressure 118 mm[Hg] Manda Canales MD Work Phone: [facility] 10-22-2022 07:57-0500 Body height 160 cm Manda Canales MD Work Phone: [facility] 10-22-2022 07:57-0500 Body weight 116.39 kg Manda Canales MD Work Phone: [facility] 10-22-2022 07:57-0500 Diastolic blood pressure 74 mm[Hg] Manda Canales MD Work Phone: [facility] 10-22-2022 07:57-0500 Heart rate 91 /min Manda Canales MD Work Phone: [facility] 10-22-2022 07:57-0500 Respiratory rate 16 /min Manda Canales MD Work Phone: [facility] 10-22-2022 07:57-0500 SaO2% (BldA) [Mass fraction] 97 % Manda Canales MD Work Phone: [facility] 10-22-2022 07:57-0500 Systolic blood pressure 108 mm[Hg] Manda Canales MD Work Phone: [facility] 09-01-2022 19:01-0500 Body temperature 98.8 [degF] Jorgito Horta MD Work Phone: [facility] 09-01-2022 19:01-0500 Body weight 115.39 kg Jorgito Horta MD Work Phone: [facility] 09-01-2022 19:01-0500 Diastolic blood pressure 82 mm[Hg] Jorgito Horta MD Work Phone: [facility] 09-01-2022 19:01-0500 Heart rate 93 /min Jorgito Horta MD Work Phone: [facility] 09-01-2022 19:01-0500 Respiratory rate 20 /min Jorgito Horta MD Work Phone: [facility] 09-01-2022 19:01-0500 SaO2% (BldA) [Mass fraction] 97 % Jorgito Horta MD Work Phone: [facility] 09-01-2022 19:01-0500 Systolic blood pressure 128 mm[Hg] Jorgito Horta MD Work Phone: [facility] Encounters Encounter Date Encounter Type Care Provider Facility Start: 10-08-2023 End: 10-08-2023 ambulatory MANDA CANALES Facility:[facility] Start: 10-08-2023 End: 10-08-2023 Patient encounter procedure Manda Canales MD Work Phone: [facility] [place] Procedures Date Procedure Procedure Detail Performing Clinician [...] microalbumin profile [facility] Start: 10-22-2027 Lipid panel Lipid Screening [facility] Start: 10-22-2027 LIPID SCREEN LIPID SCREEN [facility] Start: 11-24-2025 LIPID SCREEN LIPID SCREEN [facility] Start: 10-22-2025 DIABETES SCREEN DIABETES SCREEN [facility] Start: 10-22-2025 Diabetes Screening Diabetes Screenin g [facility] Start: 07-03-2024 Colonoscopy COLONOSCOPY [facility] Start: 07-03-2024 COLORECTAL CANCER SCREENING COLORECTAL CANCER SCREENING [facility] Start: 07-03-2024 Screening for malign ant neoplasm of colon [facility] Start: 11-25-2023 DIABETES SCREEN DIABETES SCREEN [facility] Start: 10-22-2023 COVID-19 VACCINE (#1) COVID-19 VACCI NE (#1) [facility] Immunizations Immunization Date Immunization Notes Care Provider Fa cility 06-28-2019 tetanus toxoid, redu mandi diphtheria toxoid, and acellular pertussis vaccine, adsorbed Jorgito Horta MD Work Phone: [facility] 11-10-2016 influenza virus vaccine, unspecified formulation Manda Canales MD Work Phone: [facility] 11-10-2014 tetanus and diphther ia toxoids, not adsorbed, for adult use Jorgito Horta MD Work Phone: [facility] Payers Date Payer Category Payer Unknown [id number] 2020 Private Health Insurance [id number] 2020 Private Health Insurance [id number] Social History Date Type Detail Facility Start: 09-01-2022 Tobacco smoking stat us FLIS Ex-smoker [facility] End: 03-23-1993 History of tobacco use Current smoker [facility] End: 03-23-1993 History of tobacco use Cigarette Smoker [facility] Start: 09-01-2022 Tobacco use and exposure Smoke less tobacco non-user [facility] Start: 09-01-2022 End: 10-08-2023 Alcohol intake Current drinker of alcohol (finding) [facility] Start: 10-07-2020 End: 10-19-2022 History SDOH Alcohol Frequency 2 [facility] Start: 10-07-2020 End: 10-19-2022 History SDOH Alcohol Std Drinks 1 [facility] Start: 10-07-2020 History SDOH Social Connections Phone 98 [facility] Start: 10-07-2020 End: 10-19-2022 History SDOH Social Connections Living 3 [facility] Start: 10-07-2020 End: 10-19-2022 History SDOH Financial 5 [facility] Start: 10-06-2020 Education 21 [facility] Start: 06-28-2019 Alcohol Comment rarely Hanna duran [facility] Start: 1975 Sex Assigned At Female C [facility] Start: 10-22-2022 Alcohol Comment once per month [facility] Start: 10-18-2022 End: 04-08-2023 History of Social function [facility] Start: 10-18-2022 End: 04-08-2023 Social connection and isolation panel [facility] Do you belong to any clubs or organizations such as oriental orthodox groups, unions, fraternal or athletic groups, or school groups? No [facility] Are you now , , , , never or living with a partner? [facility] How often to you hav e a drink containing alcohol? Monthly or less [facility] How many standard dr inks containing alcohol do you have on a typical day? 1 or 2 [facility] How often do you hav e 6 or more drinks on 1 occasion? Never [facility] How hard is it for y ou to pay for the very basics like food, housing, medical care, and heating Not hard at all [facility] Do you feel stress - tense, restless, nervous, or anxious, or unable to sleep at night because your mind is troubled all the time - these days [OSQ] To some extent [facility] (I/We) worried wheth er (my/our) food would run out before (I/we) got money to buy more. Never true [facility] Start: 10-06-2020 Gender identity Identifies as female gender (finding) [facility] Start: 10-06-2020 Sexual orientation Heterosexual (ruth reina) [facility] Clinical Notes 08-29-2000 to 10-08-2023 Manda Canales MD - 10/08/2023 10:17 AM ESTTelephone Encounter - Lalita Hagan LPN - 10/25/2022 5:00 PM ESTTelephone Encounter - Manda Canales MD - 10/25/2022 3:43 PM EST Note Date & Type Note Facility 10-08-2023 Note HNO ID: [id number] Author: MANDA CANALES MD Service: ? Author [...] with shingles rash along T6 dermatome at [facility] ED on 09/27. Pain started 4 days [...] rectal bleeding resolved after hysterectomy. GI in [place] Depression Dysfunctional uterine bleeding 2006 s/p hysterectomy Dysmenorrhea Eczema Esophageal reflux Gastroesophageal reflux Fibromyalgia Generalized anxiety disorder Lactose intolerance Lichen sclerosus Morbid obesity (HCC) Other acne Acne Recurrent cold sores Scalp psoriasis Vitamin D insufficiency Previous Surgical History PAST SURGICAL HISTORY Procedure Laterality Date COLONOSCOPY 2009 multiple for crohns disease. Bryan. Benign polyp COLONOSCOPY 09/21/2005 active colitis at [...] due on 06/28/20 (more content not included)... [facility] 10-08-2023 History of Presen t illness Narrative Chief Complaint Patient presents with: ER F/U: Shingles- patient also has left eye issue wondering if shingle related as shingle developed on Left side. HPI Zunilda Leon is a 48 year old female who presents here today for Above Complaints.. Patient diagnosed with shingles rash along T6 dermatome at [facility] ED on 09/27. Pain started 4 days [...] rectal bleeding resolved after hysterectomy. GI in [place] Depression Dysfunctional uterine bleeding 2006 s/p hysterectomy Dysmenorrhea Eczema Esophageal reflux Gastroesophageal reflux Fibromyalgia Generalized anxiety disorder Lactose intolerance Lichen sclerosus Morbid obesity (HCC) Other acne Acne Recurrent cold sores Scalp psoriasis Vitamin D insufficiency Previous Surgical History PAST SURGICAL HISTORY Procedure Laterality Date COLONOSCOPY 2009 multiple for crohns disease. Bryan. Benign polyp COLONOSCOPY 09/21/2005 active colitis at [...] this encounter [facility] 09-07-2023 Note Patient Outreach (IN [facility]) ZUNILDA LEON ([id number]) 1975 F Date Time Provider Department 09/07/23 [...] for screening mammogram for breast cancer [Z12.31] Order(s):[facility] SCREENING [[id number]] Order #: [id number] FUTURE Prescriptions as of 09/12/2023 - clobetasol [...] D insufficiency [E55.9] 10/25/2022 Encounter Status:Closed by Coupang PRODUSER on 09/12/23 [facility] 10-25-2022 Miscellaneous Notes Patient notified of results [...] this encounter [facility] 10-22-2022 Note HNO ID: [id number] Author: Manda Canales MD Service: ? Author [...] Date COLONOSCOPY 2009 multiple for crohns disease. Bryan. Benign polyp COLONOSCOPY 09/21/2005 active colitis at [...] Negative for ch (more content not included)... [facility] 10-22-2022 History of Presen t illness Narrative [...] Date COLONOSCOPY 2009 multiple for crohns disease. Bryan. Benign polyp COLONOSCOPY 09/21/2005 active colitis at [...] No history of dysuria, frequency or incontinence LOG GRADER: Negative for abnormal vaginal bleeding, abnormal vaginal [...] discoloration, clubbing or cyanosis. Good capillary refill. LOG GRADER: Patient deferred exam Musculoskeletal: No joint swelling, [...] diet of 1000 mg/day for under 50, 2811-8334 mg/day for 50+ - Discussed need and [...] as requested. Recommended she follow up with LOG GRADER for persistent rash since she is refusing exam today. 7. HSV-1 (herpes simplex virus 1) infection - ICD9: 054.9, ICD10: B00.9 See above. Manda Canales MD documented in this encounter [facility] 09-01-2022 History of Presen t illness Narrative [...] this encounter [facility] documented as of this encounter (statuses as of 09/03/2022) [facility] History of Past illness Narrative* Problem Noted Date Resolved Date Crohn's disease 08/29/2000 07/03/2019 Overview: crohns disease, rectal bleeding, resolved after hysterectomy. documented as of this encounter (statuses as of 10/04/2022) [facility] History of Past illness Narrative* Problem Noted Date Resolved Date Crohn's disease 08/29/2000 07/03/2019 Overview: crohns disease, rectal bleeding, resolved after hysterectomy. documented as of this encounter (statuses as of 10/26/2022) [facility] History of Past illness Narrative* Problem Noted Date Resolved Date Crohn's disease 08/29/2000 07/03/2019 Overview: crohns disease, rectal bleeding, resolved after hysterectomy. documented as of this encounter (statuses as of 10/28/2022) [facility] History of Past illness Narrative* Problem Noted Date Diagnosed Date Resolved Date Crohn's disease 08/29/2000 07/03/2019 Overview: crohns disease, rectal bleeding, resolved after hysterectomy. documented as of this encounter (statuses as of 09/12/2023) [facility] History of Past illness Narrative* Problem Noted Date Diagnosed Date Resolved Date Crohn's disease 08/29/2000 07/03/2019 Overview: crohns disease, rectal bleeding, resolved after hysterectomy. documented as of this encounter (statuses as of 10/08/2023) [facility] [place] [facility] Diagnosis Influenza-like illness- Primary Influenza with other respiratory manifestations Costochondritis Tietze's disease documented [facility]* Diagnosis Encounter for screening mammogram for breast cancer documented in this encounter [facility] [place] [facility]* Diagnosis Vitamin D insufficiency- Primary Unspecified vitamin D deficiency Elevated AST (SGOT) Nonspecific elevation of levels of transaminase or lactic acid dehydrogenase (LDH) Neutropenia, unspecified type (HCC) documented in this encounter [facility] [place] [facility]* Diagnosis Annual physical [...] this encounter [facility] [place] [facility]* Diagnosis Encounter for screening mammogram for breast cancer documented in this encounter [facility] [place] [facility]* Diagnosis Herpes zoster without complication- Primary Herpes zoster without mention of complication Post herpetic neuralgia Herpes zoster with other nervous system complications Bacterial conjunctivitis Other conjunctivitis documented in this encounter [facility] for referral (narrative)* Diagnostic Procedure Only (Routine) - Pending Review Specialty Diagnoses / Procedures Referred By Court goodwin Referred To Contact [facility] Diagnoses Encounter for screening mammogram for breast cancer Procedures MONY SCREENING SCREENING MAMMOGRAPHY BI 2-VIEW BREAST INC CAD Manda Canales MD [address] [place] [address] [facility] [address] [place] [id number] Referral ID Status Reason Start Date Expiration Date Visits Requested Visits Authorized [id number] Pending Review Auto-Generat ed Referral 09/29/2022 10/29/2023 1 1 [facility] ([facility])* Diagnostic Procedure Only (Routine) - Pending Review Specialty Diagnoses / Procedures Referred By Contac t Referred To Contact [facility] Diagnoses Encounter for screening mammogram for breast cancer Procedures MONY SCREENING SCREENING MAMMOGRAPHY BI 2-VIEW BREAST INC CAD Manda Canales MD [address] [place] [address] [facility] [address] [place] [address] Referral ID Status Reason Start Date Expiration Date Visits Requested Visits Authorized [id number] Pending Review Auto-Generat ed Referral 09/07/2023 10/06/2024 1 1 [facility] Health Concerns Infection Onset Date Last Indicated [...] drug abuse patient.[facility] the event this information is protected by the Federal Confidentiality of Alcohol and Drug Abuse Patient Records regulations: The Federal rules restrict any use of the information to criminally investigate or prosecute any alcohol or drug abuse patient.[facility] the event this information is protected by the Federal Confidentiality of Alcohol and Drug Abuse Patient Records regulations: The Federal rules restrict any use of the information to criminally investigate or prosecute any alcohol or drug abuse patient.[facility] the event this information is protected by the Federal Confidentiality of Alcohol and Drug Abuse Patient Records regulations: The Federal rules restrict any use of the information to criminally investigate or prosecute any alcohol or drug abuse patient.[facility] the event this information is protected by the Federal Confidentiality of Alcohol and Drug Abuse Patient Records regulations: The Federal rules restrict any use of the information to criminally investigate or prosecute any alcohol or drug abuse patient.[facility] the event this information is protected by the Federal Confidentiality of Alcohol and Drug Abuse Patient Records regulations: The Federal rules restrict any use of the information to criminally investigate or prosecute any alcohol or drug abuse patient.[facility] Reason for Visit (unrecogniz ed section and content) Reason Comments Results Reason Comments Physical Wanting to discuss w eight loss options. Reason Comments ER F/U Shingles- patient al so has left eye issue wondering if shingle related as shingle developed on Left side. Care Teams (unrecognized sec tion and content) Rug Sample Beveler Relationship Specialty Start Date End Date Manda Canales MD [address] [place], [place] [id number] PCP - General Family Medicine 06/28/19 Rug Sample Beveler Relationship Specialty Start Date End Date Manda Canales MD [address] [place], [place] [id number] PCP - General Family Medicine 06/28/19 Rug Sample Beveler Relationship Specialty Start Date End Date Manda Canales MD [address] [place] [address] PCP - General Family Medicine 06/28/19 Rug Sample Beveler Relationship Specialty Start Date End Date Manda Canales MD [address] [place] [address] PCP - General Family Medicine 06/28/19 Rug Sample Beveler Relationship Specialty Start Date End Date Manda Canales MD [address] [place], [place] [id number] PCP - General Family Medicine 06/28/19 INFORMATION [...] BE BASED ON THE PRIMARY CLINICAL RECORDS. [facility] provides no warranty or guarantee of the accuracy or completeness of information in this document.
[2023-10-22 00:32] LABS: Troponin-I HS 8 pg/mL (3.0-54.0)
[2023-10-22] MEDS: 0.9% Normal Saline (1000mL) 1,000 ML 100 ML IV (01:57)
[2023-10-22] MEDS: Gabapentin 300 MG Capsule PO ×3 (01:57→20:27)
[2023-10-22 04:06] LABS: Absolute Lymphocyte Count 2.97 X10^3/uL (0.83-4.51); Absolute Neutrophil Count 4.7 X10^3/uL (2.0-7.7); Basophil# 0.04 X10^3/uL; Basophil% 0.5 % (0-1); Eosinophil# 0.11 X10^3/uL; Eosinophils% 1.3 % (0-5); Hematocrit 37.5 % (37-47); Hemoglobin 12.6 g/dL (12.0-15.0); Lymphocyte # 2.97 X10^3/ul (0.83-4.51); Lymphocyte % 35.1 % (19-41); Mean Corp Hgb Conc 33.6 g/dL (32-36); Mean Corpuscular Hgb 29.7 pg (27.0-32.0); Mean Corpuscular Volume 88.4 fL (81-99); Mean Platelet Vol. 9.3 fl (6.2-12.0); Monocyte# 0.65 X10^3/uL; Monocyte% 7.7 % (0-10); NRBC Flagged by Analyzer 0 % (0-5); Neutrophil # 4.66 X10^3/uL (2.7-7.7); Platelet Count 279 K/mm3 (150-450); RBC Distribution Width CV 12.9 % (11.6-14.6); RBC Distribution Width SD 41.5 fl (35.1-43.9); Red Blood Count 4.24 M/mm3 (4.2-5.4); White Blood Count 8.5 K/mm3 (4.4-11.0)
[2023-10-22 04:24] LABS: Troponin-I HS 10 pg/mL (3.0-54.0)
[2023-10-22 04:36] LABS: ALB/GLOB Ratio 0.9 RATIO (0.9-2.4); AST(SGOT) 25 U/L (15-37); Alanine Aminotransfer ALT/SGPT 45 U/L (13-56); Albumin, Serum 3.1 g/dL (3.2-5.0); Alkaline Phosphatase 78 U/L (45-117); Anion Gap 4 (5-15); BUN 16 mg/dL (7-18); BUN/Creat Ratio 22.4 RATIO (10-20); Calcium,Total 8.4 mg/dL (8.5-10.1); Chloride 109 mmol/L (98-107); Cholesterol 176 mg/dL (200); Creatinine, Serum 0.71 mg/dL (0.55-1.02); EST Glomerular Filtration Rate 93 mL/min (>60); Est Glom Filt Rate - Afr Amer 113 mL/min (>60); Estimated Creatinine Clearance 119.66 ml/min; Globulin 3.5 g/dL (2.2-4.2); Glucose 103 mg/dL (74-106); High Density Lipoprotein 55 mg/dL; Potassium 3.7 mmol/L (3.5-5.1); Protein, Total 6.6 g/dL (6.4-8.2); Sodium Level 141 mmol/L (136-145); Triglycerides 54 mg/dL; Very Low Density Lipoprotein 11 mg/dL (5-40)
[2023-10-22 07:36] LABS: Hemoglobin A1c 5.5 % (3.8-5.6)
[2023-10-22 08:23] LABS: T4 Free Direct 0.78 ng/dL (0.76-1.46)
[2023-10-22] MEDS: DiphenhydrAMINE 50 MG/ML Syringe IV (09:18)
--- NOTE | 2023-10-22 13:46 | PN_ITS ---
Subjective Subjective Patient seen and examined. She had no complaints. She had an uneventful night. Review of systems otherwise negative. She received tenecteplase yesterday due to concerns about a stroke. Objective Data Objective Data Vital Signs: Vital Signs Temp Pulse Resp BP Pulse Ox O2 Del Method 98.2 F 77 14 117/78 96 Room Air 10/22/23 11:15 10/22/23 13:15 10/22/23 13:15 10/22/23 13:15 10/22/23 13:15 10/22/23 13:15 Oxygen Delivery Method Room Air Weight: 263 lb 14.293 oz Body Mass Index (BMI) 49.8 Intake & Output: Intake and Output for Last 24 Hours 10/20/23 10/21/23 10/22/23 23:59 23:59 23:59 Intake Total 2124 / 2124 Output Total 2224 / 2224 Balance -100 / -100 Lab / Micro Data 10/22/23 03:55 10/22/23 03:55 Labs: Laboratory Results - last 24 hr 10/21/23 21:44: POC Glucose 112 H 10/21/23 21:49: WBC 9.4, RBC 4.55, Hgb 13.5, Hct 40.3, MCV 88.6, MCH 29.7, MCHC 33.5, RDW Std Deviation 42.0, RDW Coeff of Rebecca 12.8, Plt Count 288, MPV 9.8, Immature Gran % (Auto) 0.500, Neut % (Auto) 50.6, Lymph % (Auto) 39.2, [place] % (Auto) 7.8, Eos % (Auto) 1.5, Baso % (Auto) 0.4, Absolute Neuts (auto) 4.8, Ab solute Lymphs (auto) 3.70, Nucleated RBC % 0, Platelet Estimate ADEQUATE, Plt Morphology Comment LARGE, RBC Morphology N CHROM, Anisocytosis RARE, D-Dimer Quant (PE/DVT) 1.30 H*, Sodium 140, Potassium 3.8, Chloride 108 H, Carbon Dioxide 25.0, Anion Gap 7, BUN 20 H, Creatinine 0.95, Estim Creat Clear Calc 90.41, Est GFR (MDRD) Af Amer 81, Est GFR (MDRD) Non-Af 67, BUN/Creatinine Ratio 21.0 H, Glucose 109 H, Calcium 9.2, Magnesium 2.2, Total Bilirubin 0.20, Direct Bilirubin 0.10, AST 36, ALT 47, Alkaline Phosphatase 101, Troponin I High Sens 8, Total Protein 7.1, Albumin 3.2, Globulin 3.9, Lipase 35 10/22/23 00:04: Troponin I High Sens 8 10/22/23 03:55: WBC 8.5, RBC 4.24, Hgb 12.6, Hct 37.5, MCV 88.4, MCH 29.7, MCHC 33.6, RDW Std Deviation 41.5, RDW Coeff of Rebecca 12.9, Plt Count 279, MPV 9.3, Immature Gran % (Auto) 0.400, Neut % (Auto) 55.0, Lymph % (Auto) 35.1, [place] % (Auto) 7.7, Eos % (Auto) 1.3, Baso % (Auto) 0.5, Absolute Neuts (auto) 4.7, Absolute Lymphs (auto) 2.97, Nucleated RBC % 0, Sodium 141, Potassium 3.7, Chloride 109 H, Carbon Dioxide 28.0, Anion Gap 4 L, BUN 16, Creatinine 0.71, Estim Creat Clear Calc 119.66, Est GFR (MDRD) Af Amer 113, Est GFR (MDRD) Non-Af 93, BUN/Creatinine Ratio 22.4 H, Glucose 103, Hemoglobin A1c 5.5, Calcium 8.4 L, Total Bilirubin 0.20, AST 25, ALT 45, Alkaline Phosphatase 78, Troponin I High Sens 10, Total Protein 6.6, Albumin 3.1 L, Globulin 3.5, Albumin/Globulin Ratio 0.9, Triglycerides 54, Cholesterol 176, LDL Cholesterol 110, VLDL Cholesterol 11, HDL Cholesterol 55, TSH 7.20 H, Free T4 0.78 Radiography Diagnostic Testing: Radiology Impression Chest X-Ray 10/21/23 21:39 IMPRESSION: Normal x-ray examination of the chest. Electronically Signed: Christiano Ordonez MD at 22:09 EST , Brain CT 10/21/23 21:45 IMPRESSION: Negative Brain CT without contrast. N.B. : The above Results were Read Back by Christiano Ordonez MD to Nadia Yao MD, and understanding confirmed on 10/21/2023 22:02:21 (ET). Electronically Signed: Christiano Ordonez MD at 22:02 EST , ADDENDUM: 10/21/23 2209 IMPRESSION: Negative Brain CT without contrast. N.B. : The above Results were Read Back by Christiano Ordonez MD to Nadia Yao MD, and understanding confirmed on 10/21/2023 22:02:21 (ET). Electronically Signed: Christiano Ordonez MD at 22:02 EST , Head/Neck CTA 10/21/23 21:46 IMPRESSION: Normal CTA Head and neck with contrast. Electronically Signed: Christiano Ordonez MD at 22:15 EST , ADDENDUM: 10/21/23 2232 IMPRESSION: Normal CTA Head and neck with contrast. N.B. : Dr. Nadia Yao MD, confirmed on 10/21/2023 22:25:21 (ET) that the referring physician received the results and does not require a verbal communication. Electronically Signed: Christiano Ordonez MD at 22:15 EST , Physical Exam Const alert, oriented x3 and no apparent distress Constitutional Narrative: Obese General Appearance: cooperative and well developed HEENT normocephalic, head/scalp atraumatic, moist oral mucous membranes and oropharynx normal Eyes PERRL and EOMs intact bilaterally Neck no lymphadenopathy, supple and no JVD Lymph Lymphatic: no lymphadenopathy noted and no lymphedema noted Resp normal respiratory effort, normal air movement and clear to auscultation bilaterally Cardio regular rate, regular rhythm, S1 normal heart sound, S2 normal heart sound and no murmurs GI normal to inspection, nondistended, normoactive bowel sounds, soft to palpation, non-tender and non-distended Extremity normal capillary refill, no clubbing, cyanosis or edema and no calf tenderness General Extremity: no tenderness to palpation of joints or extremities Skin General Skin Exam: no breakdown Neuro CN's II-XII intact bilaterally, no focal motor deficits, no sensory deficits noted and deep tendon reflexes 2+ bilaterally Motor Exam: strength 5/5 throughout and general weakness Psych thought process normal, cooperative and affect normal Appearance: appropriate Assessment & Plan Assessment/Plan (1) Stroke: (2) Chest pain: PLAN: Plan #left sided facial droop * to rule out a stroke * received tenecteplase yeserday. * for CT/MRI 24 hours after receiving TNK * PT/OT on board * fall precautions * on high intensity statin * A1C ordered. * #CHest pain * chest pain hasnt recurred * D dimer was elevated. * EKG showed no acute ST changes. * Duplex ordered. To do CTA chest when patient is getting CT brain * patient has a history of VTE; unclear if it is due to hypercoagulable panel * # Elevated BP: Noted on hypertensive. In light of concern for stroke to continue with permissive hypertension. If blood pressure remains elevated subsequently, will consider starting BP meds. #Super morbid obesity: BMI is 49.9. Complicates acute care, expected recovery and prognosis #Recent episode of shingles: on gabapentin. DVT prophylaxis; SCDs. No anticoagulation o/a of tenecteplase. Charges/Coding Visit Charges Inpatient E&M: 11303 Subs Hosp L2
--- NOTE | 2023-10-22 16:05 | CON.PCM.CC_ITS ---
HPI Consult Data Date of Consult: 10/22/23 HPI Narrative HPI Narrative: Patient seen and examined Chart and data reviewed s/p IV thrombolytic therapy for suspected CVA Neurologically in tact f/u DATABASE ANALYST imaging pending We are available as needed [facility] Medical History Fibromyalgia Morbid obesity Home Medications gabapentin 300 mg capsule 300 mg PO Q12H 10/21/23 [History Last Taken Unknown] Allergy/AdvReac Type Severity Reaction Status Date / Time egg Allergy Other Verified 09/27/23 20:47 prednisone AdvReac Nausea/Vom/ Verified 09/27/23 20:47 Diarrhea Family History (Updated 10/22/23 @ 00:[address] Ioana Griffiths MD) Mother Rheumatoid arthritis Hypertension Father Hypertension Grandmother VTE (venous thromboembolism) Maternal grandmother. Brother VTE (venous thromboembolism) CVA (cerebral vascular accident) Hypertension Surgical History (Updated 10/22/23 @ 00:[address] Ioana Griffiths MD) H/O tubal ligation H/O: hysterectomy S/P tonsillectomy and adenoidectomy Social History (Updated 10/21/23 @ 23:[address] Ioana Griffiths MD) household members: spouse Smoking Status: Never smoker alcohol intake: never substance use type: does not use Objective Data Objective Data Vital Signs: Vital Signs Last response Temperature 36.8 C 10/22/23 11:15 Temperature Source Temporal 10/22/23 11:15 Pulse Rate 72 10/22/23 15:15 Pulse Strength Normal (2+) 10/22/23 10:00 Respiratory Rate 12 10/22/23 15:15 Respiratory Effort Short of Breath 10/21/23 21:00 Blood Pressure 122/76 H 10/22/23 15:15 Blood Pressure Mean 91 10/22/23 15:15 Blood Pressure Source Monitor 10/22/23 15:15 Blood Pressure Position Semi-Fowlers 10/22/23 15:15 Blood Pressure Location Left Arm 10/22/23 15:15 Pulse Ox 97 10/22/23 15:15 Oxygen Delivery Method Room Air 10/22/23 15:15 I&O: I&O Last 24 Hours 10/21/23 10/22/23 10/22/23 23:59 11:59 23:59 Intake Total 1885 / 2125 240 / 2125 Output Total 1749 475 / 2225 Balance 135 / -100 -235 / -100 I&O: Total Stay 10/21/23 20:58 thru 10/22/23 12:00 Intake Total 2124 Output Total 2225 Balance -100 Current Meds Ordered / Administered: Current meds ordered / Administered Generic Name Dose Route Start Last Admin Trade Name Freq PRN Reason Stop Dose Admin Acetaminophen 650 mg 10/22/23 00:38 Acetaminophen 325 Mg Tablet PO Q4H PRN PRN Fever, pain 1-1010 Al Hydroxide/Mg Hydroxide 30 ml 10/22/23 00:38 Mag Hydrox/Al Hydrox/Simeth 30 Ml Udc PO Q6H PRN PRN Gastric Burning Albuterol Sulfate 2.5 mg 10/22/23 00:38 Albuterol 2.5 Mg/3 Ml Vial.Neb. INHALATION Q2H PRN PRN Dyspnea, wheezing Atorvastatin Calcium 80 mg 10/22/23 22:00 Atorvastatin Calcium 80 Mg Tablet PO QHS KAREEM Epinephrine HCl 0.3 mg 10/22/23 00:38 Epi Pen (Equiv) 0.3 Mg Syringe IM 10/23/23 23:39 X1 PRN Alleric Reaction Gabapentin 300 mg 10/22/23 00:38 10/22/23 09:18 Gabapentin 300 Mg Capsule PO 300 mg Q12 KAREEM Administration Nicardipine/Sodium Chloride 20 mg in 200 mls @ 50 mls/hr 10/22/23 00:38 Cardene-Shlomo 20 Mg/200 Ml Soln CONT INF Q4H PRN See Instructions Protocol 5 MG/HR Famotidine 20 mg/ Sodium 10 mls @ 300 mls/hr 10/22/23 00:38 Chloride IV X1 PRN Allergic Reaction Sodium Chloride 250 mls @ 15 mls/hr 10/22/23 01:18 IV .[id number] PRN Additional IVPB Infusion Sodium Chloride 250 mls @ 15 mls/hr 10/22/23 01:18 IV .[id number] PRN Saline Flush Labetalol HCl 20 mg 10/22/23 00:38 Labetalol (Prefilled) 20 Mg/4 Ml IV X1 PRN BP Goals Melatonin 3 mg 10/22/23 00:38 Melatonin 3 Mg Tablet PO QHS PRN PRN INSOMNIA Methylprednisolone 125 mg 10/22/23 00:38 Methylprednisolone 125 Mg/2 Ml Vial IV X1 PRN Allergic Reaction Ondansetron HCl 4 mg 10/22/23 00:38 Ondansetron 4 Mg/2 Ml Vial IV Q8H PRN PRN NAUSEA/VOMITING Prochlorperazine Edisylate 5 mg 10/22/23 00:38 Prochlorperazine 10 Mg/2 Ml Vial IV Q4H PRN PRN Breakthrough Nausea/Vomiting Senna/Docusate Sodium 2 tablet 10/22/23 00:38 Senna/Docusate Sodium 1 Tablet PO BID PRN PRN Constipation Sodium Chloride 10 ml 10/22/23 00:38 0.9% Saline Lock 10 Ml Syringe IV UD PRN Before/After Tenecteplase Administration Sodium Chloride 10 - 40 ml 10/22/23 01:18 0.9% Saline Lock 10 Ml Syringe IV UD PRN SALINE FLUSH Lab / Micro Data 10/22/23 03:55 10/22/23 03:55 Labs: Laboratory Results - last 24 hr 10/21/23 21:44: POC Glucose 112 H 10/21/23 21:49: WBC 9.4, RBC 4.55, Hgb 13.5, Hct 40.3, MCV 88.6, MCH 29.7, MCHC 33.5, RDW Std Deviation 42.0, RDW Coeff of Rebecca 12.8, Plt Count 288, MPV 9.8, Immature Gran % (Auto) 0.500, Neut % (Auto) 50.6, Lymph % (Auto) 39.2, [place] % (Auto) 7.8, Eos % (Auto) 1.5, Baso % (Auto) 0.4, Absolute Neuts (auto) 4.8, Absolute Lymphs (auto) 3.70, Nucleated RBC % 0, Platelet Estimate ADEQUATE, Plt Morphology Comment LARGE, RBC Morphology N CHROM, Anisocytosis RARE, D-Dimer Quant (PE/DVT) 1.30 H*, Sodium 140, Potassium 3.8, Chloride 108 H, Carbon Dioxide 25.0, Anion Gap 7, BUN 20 H, Creatinine 0.95, Estim Creat Clear Calc 90.41, Est GFR (MDRD) Af Amer 81, Est GFR (MDRD) Non-Af 67, BUN/Creatinine Ratio 21.0 H, Glucose 109 H, Calcium 9.2, Magnesium 2.2, Total Bilirubin 0.20, Direct Bilirubin 0.10, AST 36, ALT 47, Alkaline Phosphatase 101, Troponin I High Sens 8, Total Protein 7.1, Albumin 3.2, Globulin 3.9, Lipase 35 10/22/23 00:04: Troponin I High Sens 8 10/22/23 03:55: WBC 8.5, RBC 4.24, Hgb 12.6, Hct 37.5, MCV 88.4, MCH 29.7, MCHC 33.6, RDW Std Deviation 41.5, RDW Coeff of Rebecca 12.9, Plt Count 279, MPV 9.3, Immature Gran % (Auto) 0.400, Neut % (Auto) 55.0, Lymph % (Auto) 35.1, [place] % (Auto) 7.7, Eos % (Auto) 1.3, Baso % (Auto) 0.5, Absolute Neuts (auto) 4.7, Absolute Lymphs (auto) 2.97, Nucleated RBC % 0, Sodium 141, Potassium 3.7, Chloride 109 H, Carbon Dioxide 28.0, Anion Gap 4 L, BUN 16, Creatinine 0.71, Estim Creat Clear Calc 119.66, Est GFR (MDRD) Af Amer 113, Est GFR (MDRD) Non-Af 93, BUN/Creatinine Ratio 22.4 H, Glucose 103, Hemoglobin A1c 5.5, Calcium 8.4 L, Total Bilirubin 0.20, AST 25, ALT 45, Alkaline Phosphatase 78, Troponin I High Sens 10, Total Protein 6.6, Albumin 3.1 L, Globulin 3.5, Albumin/Globulin Ratio 0.9, Triglycerides 54, Cholesterol 176, LDL Cholesterol 110, VLDL Cholesterol 11, HDL Cholesterol 55, TSH 7.20 H, Free T4 0.78 Imaging Radiology Impression Chest X-Ray 10/21/23 21:39 IMPRESSION: Normal x-ray examination of the chest. Electronically Signed: Christiano Ordonez MD at 22:09 EST , Brain CT 10/21/23 21:45 IMPRESSION: Negative Brain CT without contrast. N.B. : The above Results were Read Back by Christiano Ordonez MD to Nadia Yao MD, and understanding confirmed on 10/21/2023 22:02:21 (ET). Electronically Signed: Christiano Ordonez MD at 22:02 EST , ADDENDUM: 10/21/23 2209 IMPRESSION: Negative Brain CT without contrast. N.B. : The above Results were Read Back by Christiano Ordonez MD to Nadia Yao MD, and understanding confirmed on 10/21/2023 22:02:21 (ET). Electronically Signed: Christiano Ordonez MD at 22:02 EST , Head/Neck CTA 10/21/23 21:46 IMPRESSION: Normal CTA Head and neck with contrast. Electronically Signed: Christiano Ordonez MD at 22:15 EST , ADDENDUM: 10/21/232 IMPRESSION: Normal CTA Head and neck with contrast. N.B. : Dr. Nadia Yao MD, confirmed on 10/21/2023 22:25:21 (ET) that the referring physician received the results and does not require a verbal communication. Electronically Signed: Christiano Ordonez MD at 22:15 EST , Assessment and Plan . Assessment and plan: Critical Care Time: The entirety of this encounter was done via Telemedicine
--- NOTE | 2023-10-22 17:07 | CASEMGMT ---
Social Work SW met w/pt, completed PHQ-9. Pt scored a 10, indicating a moderate level of depression. Pt's symptoms(little interest in doing things, feeling down, trouble with sleep, having little energy, poor appetite, feeling bad about yourself, speaking and moving slowly) pt all relates to just getting over shingles and also having to be here in the hospital at present. Pt does state however has a history of anxiety and depression. She has been on medication in the past, and has been in counseling in the past. Pt also mentioned several family stressors. Pt has 4 children, 27, 26, 22, and 8. Pt's parents live w/she and and she is concerned they both have the start of dementia. She states the 8 yr old and 22 yr old both live at home as well, they are both autistic, though the 22 year old is high functioning. Pt's 26 year old son and had a recent loss. Pt's 27 yr old daughter had bariatric surgery, ended up w/diabetes, became and lost the baby. One of her main support people, her electric shipyard operator's , was just diagnosed w/cancer. SW offered support to pt in all she has been through. SW encouraged her to get back into counseling. Pt states she does not want to have to drive to counseling, does not want to take the time. SW reminded pt that there are many online options available. SW offered a list of counseling resources, pt declined. SW remains available for support to pt as needed. LOBO Cummings
--- NOTE | 2023-10-22 17:13 | CASEMGMT ---
Social Work SW met w/pt and in room to review prior level of function and anticipated discharge plan. PCP: Dr. Mercado though pt does not go to the doctor much Specialists: None [facility]acy: [facility] Insurance: [employer] KATIA LNOK: Parents, 4 children, LW/POA: They have not completed the documents. SW did give them a blank form and reviewed it with them. Living arrangements: Pt lives in a two story home w/her parents, , 22 yr old son and 8 yr old daughter. Prior level of function: Pt fully independent with ADLs, drives DME/HHC/SNF: No history of any of these. Plan: TBD, likely home SW spoke w/pt and at length. Pt seems be under a lot of stress due to the health issues of family members. She is concerned her parents with whom they live have dementia. Her daughter who is 8 is autistic and she home schools her. Her 22 year old who also has high functioning autism lives at home as well. He is working but does not drive, so she needs to take him to work every day. Her daughter is 27 and in [place], having health issues. Her son who is 26 and in [place] and his recently had a loss. Additionally, her fondant puff maker's who is a support person to her, was just diagnosed w/cancer. SW offered support to pt. Pt has not yet been able to participate in therapy so it is difficult to know what she may need at discharge. SW/CM will continue to follow for discharge planning needs. LOBO Cummings
[2023-10-22] MEDS: MELATONIN 3 MG TABLET PO (20:27)
[2023-10-22] MEDS: Atorvastatin Calcium 80 MG Tablet PO (20:27)
--- NOTE | 2023-10-22 22:51 | CT_ITS ---
STUDY: CTA CHEST REASON FOR EXAM: Female, 48 years old. Elevated D-Dimer RADIATION DOSAGE (If Supplied By Facility): CTDIvol = ( 13.57 ) mGy, DLP = ( 454.91 ) mGycm TECHNIQUE: The examination was performed with the intravenous administration of 100 cc Isovue-370. Post-processing of the angiographic images was performed, with multiplanar reformation and 3D reconstruction. Individualized dose optimization techniques were used for this CT. COMPARISON: None. FINDINGS: Normal enhancement of the main pulmonary artery and right and left pulmonary arteries. Normal enhancement of the bilateral peripheral pulmonary arteries. There is no demonstrated pulmonary embolism. No aortic aneurysm. There is no demonstrated aortic dissection. Normal heart and pericardium. Normal mediastinum. Normal hilar regions. Normal pulmonary parenchyma. No pleural effusions. Normal chest wall structures. No acute or aggressive osseous abnormality. No acute findings in the upper abdomen. CT/CTA Chest W/WO Contrast IMPRESSION: Normal CTA chest examination, without a demonstrated pulmonary embolism or arterial dissection. No acute pulmonary findings. Electronically Signed: Krystian Lange MD at 0:29 EST ,
--- NOTE | 2023-10-22 23:30 | CT_ITS ---
INDICATION: CVA EXAMINATION: CT BRAIN - CT Head or Brain W/O Contrast Injection TECHNIQUE: Multiple axial images were obtained of the head without intravenous contrast. A radiation dose optimization technique was used for this scan. IV Contrast dosage and agent: None. COMPARISON: 10/21/2023 FINDINGS: BRAIN PARENCHYMA: No intra- or extra-axial hemorrhage. No evidence of acute infarct. No intracranial mass or mass effect. There is preservation of the benítez/white matter interface. Posterior fossa structures are unremarkable. CSF SPACES: Appropriate for age. No hydrocephalus. Basal cisterns are patent. CALVARIUM, SKULL BASE, PARANASAL SINUSES AND MASTOID AIR CELLS: Clear. No discrete lytic or blastic abnormalities. ORBITS: Both globes, extraocular muscles, optic nerves and retrobulbar fat appear unremarkable. CT/Brain/Head without Contrast IMPRESSION: No acute intracranial findings. Electronically Signed: Krystian Lange MD at 0:23 EST ,
--- NOTE | 2023-10-22 23:44 | NURSING ---
This RN and pt to CT for brain CT and chest CTA. During CT, pt began to report a headache on the left side of her head, this being prior to pt receiving contrast. Pt laying flat at this time and previously had been elevated, pt states she usually does not lay completely flat even at home. Pt and this RN returned to ICU floor. This RN performed NIH, NIH score of 1 for facial droop which is consistent w/ previous NIH, PERRLA. Vitals stable SBP/ DBP WNL for post thrombolytic. Pt states that headache is decreasing at this time.
[2023-10-23] VITALS (14 sets, daily range): BP systolic 104–133; BP diastolic 61–92; PULSE 77–90; RESP 12–22; TEMP 36.7–36.9; O2SAT 92–98; BMI 49.8; BMI 49.4
--- NOTE | 2023-10-23 03:51 | PCM.HOSP.N ---
Hospitalist Note CT head without acute findings. Will dose with ASA 81 mg now and continue daily.
[2023-10-23] MEDS: Acetaminophen 325 MG Tablet 650 MG PO (03:52)
[2023-10-23] MEDS: 0.9% Saline Lock 10 ML Syringe IV (03:53)
[2023-10-23 04:12] LABS: Absolute Lymphocyte Count 2.67 X10^3/uL (0.83-4.51); Absolute Neutrophil Count 4.3 X10^3/uL (2.0-7.7); Basophil# 0.02 X10^3/uL; Basophil% 0.3 % (0-1); Eosinophil# 0.13 X10^3/uL; Eosinophils% 1.7 % (0-5); Hematocrit 39.2 % (37-47); Lymphocyte # 2.67 X10^3/ul (0.83-4.51); Lymphocyte % 34.2 % (19-41); Mean Corp Hgb Conc 33.2 g/dL (32-36); Mean Corpuscular Hgb 29.4 pg (27.0-32.0); Mean Corpuscular Volume 88.7 fL (81-99); Mean Platelet Vol. 9.4 fl (6.2-12.0); Monocyte# 0.65 X10^3/uL; Monocyte% 8.3 % (0-10); NRBC Flagged by Analyzer 0 % (0-5); Neutrophil # 4.31 X10^3/uL (2.7-7.7); Neutrophil % 55.1 % (47-70); Platelet Count 290 K/mm3 (150-450); RBC Distribution Width CV 13.1 % (11.6-14.6); RBC Distribution Width SD 42.5 fl (35.1-43.9); Red Blood Count 4.42 M/mm3 (4.2-5.4); White Blood Count 7.8 K/mm3 (4.4-11.0)
[2023-10-23 04:27] LABS: Anion Gap 4 (5-15); BUN 15 mg/dL (7-18); BUN/Creat Ratio 21.4 RATIO (10-20); Calcium,Total 8.8 mg/dL (8.5-10.1); Chloride 106 mmol/L (98-107); EST Glomerular Filtration Rate 95 mL/min (>60); Est Glom Filt Rate - Afr Amer 115 mL/min (>60); Estimated Creatinine Clearance 120.67 ml/min; Glucose 106 mg/dL (74-106); Sodium Level 138 mmol/L (136-145)
[2023-10-23] MEDS: Aspirin 81 MG TAB.CHEW PO (04:51)
[2023-10-23] MEDS: Gabapentin 300 MG Capsule PO (07:21)
--- NOTE | 2023-10-23 09:15 | NURSING ---
Patient was taken to MRI at this time.
--- NOTE | 2023-10-23 09:18 | MRI_ITS ---
HISTORY: CVA. TECHNIQUE: Multiplanar and multisequence MR images of the brain were obtained without contrast. 280 images. COMPARISON: CT prior day. FINDINGS: BRAIN PARENCHYMA: No significant signal abnormality in the brain parenchyma. No abnormal focus of restricted diffusion. No acute intracranial hemorrhage identified. CSF SPACES: Cerebral ventricles, cortical sulci, and other extra-axial CSF spaces within normal limits in size for age. No significant midline shift or other mass effect.No extra-axial fluid collection. VASCULAR SYSTEM: Major intracranial flow voids are maintained. PARANASAL SINUSES AND MASTOID AIR CELLS: No significant air fluid levels. ORBITS: Symmetric contents. MRI/Brain without Contrast IMPRESSION: Unremarkable examination. No evidence for acute infarct or other significant signal abnormality in the brain. Electronically Signed: Diana Faust MD at 11:17 EST ,
--- NOTE | 2023-10-23 10:24 | NURSING ---
Back from MRI at 10:12am
--- NOTE | 2023-10-23 11:18 | CON.PCM.NE_ITS ---
Assessment and Plan: Stroke Assessment/Plan HECTOR LEON is a 48 F with left sided numbness that has been off and on in nature since beginning. It isn't clear what the etiology of this is but at this time there is no evidence pointing to stroke. I would expect symptoms to slowly resolve in any case and should episodes recur in the future we may be able to better characterize the source. - No further neurovascular recommendations at this time HPI Consult Data Date of Consult: 10/23/23 HPI Narrative HPI Narrative: HECTOR LEON is a 48 F with left sided numbness that has been off and on in nature since beginning. It isn't clear what the etiology of this is but at this time there is no evidence pointing to stroke. I would expect symptoms to slowly resolve in any case and should episodes recur in the future we may be able to better characterize the source. COUNTS INCLUDE 234 BEDS AT THE [facility] Medical History Fibromyalgia Morbid obesity Home Medications gabapentin 300 mg capsule 300 mg PO Q12H 10/21/23 [History Last Taken Unknown] Allergy/AdvReac Type Severity Reaction Status Date / Time egg Allergy Other Verified 09/27/23 20:47 prednisone AdvReac Nausea/Vom/ Verified 09/27/23 20:47 Diarrhea Family History (Updated 10/22/23 @ 00:[address] Ioana Griffiths MD) Mother Rheumatoid arthritis Hypertension Father Hypertension Grandmother VTE (venous thromboembolism) Maternal grandmother. Brother VTE (venous thromboembolism) CVA (cerebral vascular accident) Hypertension Surgical History (Updated 10/22/23 @ 00:[address] Ioana Griffiths MD) H/O tubal ligation H/O: hysterectomy S/P tonsillectomy and adenoidectomy Social History (Updated 10/21/23 @ 23:[address] Ioana Griffiths MD) household members: spouse Smoking Status: Never smoker alcohol intake: never substance use type: does not use Vital Signs Vital Signs Vital Signs: 10/22/23 12:15 10/22/23 13:15 10/22/23 14:15 Temperature Temperature Source Pulse Rate 74 77 67 Pulse Strength Respiratory Rate 18 14 16 Respiratory Effort Respiratory Depth Respiratory Pattern Blood Pressure 128/84 H 117/78 122/88 H Blood Pressure [BP] Blood Pressure Mean 98 91 99 Blood Pressure Mean [BP] Blood Pressure Source Monitor Monitor Monitor Blood Pressure Source [BP] Blood Pressure Position Semi-Fowlers Semi-Fowlers Semi-Fowlers Blood Pressure Position [BP] Blood Pressure Location Left Arm Left Arm Left Arm Blood Pressure Location [BP] Pulse Ox 94 96 97 Oxygen Delivery Method Room Air Room Air Room Air 10/22/23 15:15 10/22/23 16:15 10/22/23 17:15 Temperature Temperature Source Pulse Rate 72 77 83 Pulse Strength Respiratory Rate 12 18 16 Respiratory Effort Respiratory Depth Respiratory Pattern Blood Pressure 122/76 H 128/92 H 104/51 L Blood Pressure [BP] Blood Pressure Mean 91 104 68 Blood Pressure Mean [BP] Blood Pressure Source Monitor Monitor Monitor Blood Pressure Source [BP] Blood Pressure Position Semi-Fowlers Semi-Fowlers Semi-Fowlers Blood Pressure Position [BP] Blood Pressure Location Left Arm Left Arm Left Arm Blood Pressure Location [BP] Pulse Ox 97 97 97 Oxygen Delivery Method Room Air Room Air Room Air 10/22/23 18:15 10/22/23 20:15 10/22/23 20:00 Temperature 97.2 F L Temperature Source Temporal Pulse Rate 82 81 Pulse Strength Respiratory Rate 16 17 Respiratory Effort Normal Non-Labored Respiratory Depth Normal Respiratory Pattern Normal Blood Pressure 118/84 H 143/104 H Blood Pressure [BP] Blood Pressure Mean 95 117 Blood Pressure Mean [BP] Blood Pressure Source Monitor Monitor Blood Pressure Source [BP] Blood Pressure Position Semi-Fowlers Semi-Fowlers Blood Pressure Position [BP] Blood Pressure Location Left Arm Right Forearm Blood Pressure Location [BP] Pulse Ox 94 99 Oxygen Delivery Method Room Air Room Air Room Air 10/22/23 21:15 10/22/23 22:00 10/22/23 22:15 Temperature Temperature Source Pulse Rate 80 82 Pulse Strength Normal (2+) Respiratory Rate 16 19 H Respiratory Effort Respiratory Depth Respiratory Pattern Blood Pressure 119/87 H 122/83 H Blood Pressure [BP] Blood Pressure Mean 97 96 Blood Pressure Mean [BP] Blood Pressure Source Monitor Monitor Blood Pressure Source [BP] Blood Pressure Position Semi-Fowlers Semi-Fowlers Blood Pressure Position [BP] Blood Pressure Location Right Forearm Right Forearm Blood Pressure Location [BP] Pulse Ox 99 95 Oxygen Delivery Method Room Air Room Air 10/22/23 23:30 10/23/23 00:00 10/23/23 00:00 Temperature 98.1 F Temperature Source Temporal Pulse Rate 82 81 Pulse Strength Respiratory Rate 16 14 Respiratory Effort Normal Non-Labored Respiratory Depth Normal Respiratory Pattern Normal Blood Pressure 128/92 H Blood Pressure [BP] 133/92 H Blood Pressure Mean 104 Blood Pressure Mean [BP] 105 Blood Pressure Source Monitor Blood Pressure Source [BP] Monitor Blood Pressure Position Semi-Fowlers Blood Pressure Position [BP] Semi-Fowlers Blood Pressure Location Right Forearm Blood Pressure Location [BP] Right Forearm Pulse Ox 95 97 Oxygen Delivery Method Room Air Room Air Room Air 10/23/23 01:00 10/23/23 02:00 10/23/23 03:00 Temperature Temperature Source Temporal Pulse Rate 82 84 83 Pulse Strength Respiratory Rate 18 17 18 Respiratory Effort Respiratory Depth Respiratory Pattern Blood Pressure Blood Pressure [BP] 127/92 H 130/84 H 128/82 H Blood Pressure Mean Blood Pressure Mean [BP] 103 99 97 Blood Pressure Source Blood Pressure Source [BP] Monitor Monitor Monitor Blood Pressure Position Blood Pressure Position [BP] Semi-Fowlers Semi-Fowlers Semi-Fowlers Blood Pressure Location Blood Pressure Location [BP] Right Forearm Right Forearm Right Forearm Pulse Ox 95 93 94 Oxygen Delivery Method Room Air Room Air Room Air 10/23/23 04:00 10/23/23 04:00 10/23/23 05:00 Temperature Temperature Source Pulse Rate 87 81 Pulse Strength Respiratory Rate 12 17 Respiratory Effort Normal Non-Labored Respiratory Depth Normal Respiratory Pattern Normal Blood Pressure Blood Pressure [BP] 116/79 115/79 Blood Pressure Mean Blood Pressure Mean [BP] 91 91 Blood Pressure Source Blood Pressure Source [BP] Monitor Monitor Blood Pressure Position Blood Pressure Position [BP] Semi-Fowlers Semi-Fowlers Blood Pressure Location Blood Pressure Location [BP] Right Forearm Right Forearm Pulse Ox 98 92 Oxygen Delivery Method Room Air Room Air Room Air 10/23/23 06:00 10/23/23 07:00 10/23/23 07:19 Temperature Temperature Source Pulse Rate 77 77 Pulse Strength Respiratory Rate 16 15 Respiratory Effort Respiratory Depth Respiratory Pattern Blood Pressure Blood Pressure [BP] 116/87 H 126/78 H Blood Pressure Mean Blood Pressure Mean [BP] 96 94 Blood Pressure Source Blood Pressure Source [BP] Monitor Monitor Blood Pressure Position Blood Pressure Position [BP] Semi-Fowlers Semi-Fowlers Blood Pressure Location Blood Pressure Location [BP] Right Forearm Right Forearm Pulse Ox 95 97 97 Oxygen Delivery Method Room Air Room Air Room Air 10/23/23 07:00 10/23/23 07:56 10/23/23 08:00 Temperature 98.5 F Temperature Source Temporal Pulse Rate 81 86 Pulse Strength Normal (2+) Respiratory Rate 18 16 Respiratory Effort Respiratory Depth Respiratory Pattern Blood Pressure 126/78 H Blood Pressure [BP] 104/61 Blood Pressure Mean 94 Blood Pressure Mean [BP] 75 Blood Pressure Source Monitor Blood Pressure Source [BP] Monitor Blood Pressure Position Semi-Fowlers Blood Pressure Position [BP] Semi-Fowlers Blood Pressure Location Right Forearm Blood Pressure Location [BP] Right Forearm Pulse Ox 96 97 Oxygen Delivery Method Room Air Room Air 10/23/23 09:00 10/23/23 10:12 10/23/23 11:00 Temperature Temperature Source Pulse Rate 89 90 90 Pulse Strength Respiratory Rate 15 22 H 16 Respiratory Effort Respiratory Depth Respiratory Pattern Blood Pressure 129/87 H 115/82 H Blood Pressure [BP] 116/85 H Blood Pressure Mean 101 93 Blood Pressure Mean [BP] 95 Blood Pressure Source Monitor Monitor Blood Pressure Source [BP] Monitor Blood Pressure Position Semi-Fowlers Sitting Blood Pressure Position [BP] Sitting Blood Pressure Location Right Forearm Right Forearm Blood Pressure Location [BP] Right Forearm Pulse Ox 97 97 97 Oxygen Delivery Method Room Air Room Air Room Air Weight Weight: 118.6 kg Body Mass Index (BMI) 49.4 EEG Results Procedure Details EEG Procedure Details: HECTOR LEON is a 48 year old F with a past medical history of , who presents for evaluation of Electroencephalogram on DATE at TIME NIHSS NIHSS Nursing Documentation NIHSS Nursing Documentation: Thrombolytic: Vital Signs & NIHSS Start: 10/21/23 22:15 Text: Assess and document vital signs and NIHSS Status: Active within 15 minutes of tenecteplase bolus administration Freq: [id number] Protocol: Activity Type Activity Date Activity User E-sign Co-sign Detail Recorded Client Recorded Date Recorded By Document 10/23/23 11:00 ARN Desktop 10/23/23 11:05 ARN 10/23/23 11:00 Vital Signs [Pulse] -Pulse Rate (60-100) 90 -Pulse Location Monitor [Respirations] -Respiratory Rate (12-18) 16 -Respiratory rate source Monitor -Pulse Oximetry 97 -Oxygen Delivery Method Room Air [Blood Pressure] -Blood Pressure (90/60-120/80) 115/82 H -Blood Pressure Mean 93 -Source Monitor -Position Sitting -Blood Pressure Location Right Forearm -Is the SBP > or = 180 No -Is the DBP > or = 105 No NIH Stroke Scale [NIHSS] A score of 0 is normal or asymptomatic . Total possible score is 42. Inpatient: RN or Physician to activate a stroke alert for onset of new stroke symptoms or with NIHSS increase >/= 3 points. Following change in neurological status, NIHSS will be performed per physician order or more frequently PRN. -1a. Level of Consciousness Alert; keenly responsive -1b. LOC Questions Answers BOTH questions correctly. -1c. LOC Commands Performs both tasks correctly . -2. Best Gaze Normal -3. Visual No visual loss -4. Facial Palsy Normal symmetrical movements -5a. Left Arm No drift; arm holds 90 (or 45 ) degrees for full 10 seconds -5b. Right Arm No drift; arm holds 90 (or 45 ) degrees for full 10 seconds -6a. Left Leg No drift; leg holds 30-degree position for full 5 seconds -6b. Right Leg No drift; leg holds 30-degree position for full 5 seconds -7. Limb Ataxia Absent -8. Sensory Normal; no sensory loss -9. Best Language No aphasia; normal -10. Dysarthria Normal -11. Extinction and Inattention No abnormality -Total 0 Query Text:A score of 0 is normal or asymptomatic. Total possible score is 42 . ED: Notify Physician for NIHSS increase by > / = 3 points. Inpatient: RN or Physician to activate a stroke alert for NIHSS increase of > / = 3 points. Lab / Micro Data 10/23/23 03:59 10/23/23 03:59 Labs: Laboratory Results - last 24 hr 10/23/23 03:59: WBC 7.8, RBC 4.42, Hgb 13.0, Hct 39.2, MCV 88.7, MCH 29.4, MCHC 33.2, RDW Std Deviation 42.5, RDW Coeff of Rebecca 13.1, Plt Count 290, MPV 9.4, Immature Gran % (Auto) 0.400, Neut % (Auto) 55.1, Lymph % (Auto) 34.2, Mckenzie % (Auto) 8.3, Eos % (Auto) 1.7, Baso % (Auto) 0.3, Absolute Neuts (auto) 4.3, Absolute Lymphs (auto) 2.67, Nucleated RBC % 0, Sodium 138, Potassium 4.0, Chlor armani 106, Carbon Dioxide 28.0, Anion Gap 4 L, BUN 15, Creatinine 0.70, Estim C reat Clear Calc 120.67, Est GFR (MDRD) Af Amer 115, Est GFR (MDRD) Non-Af 95, BUN/Creatinine Ratio 21.4 H, Glucose 106, Calcium 8.8 Imaging Radiology Impression Venous Doppler Study 10/21/23 23:41 Interpretation Summary No evidence for acute deep venous thrombosis bilateral lower extremities with patent and compressible bilateral great saphenous veins. Ordering Physician: Ioana Griffiths Referring Physician: Vinod Mercado Performed By: Apryl Shukla RVT Chest CTA 10/22/23 22:51 IMPRESSION: Normal CTA chest examination, without a demonstrated pulmonary embolism or arterial dissection. No acute pulmonary findings. Electronically Signed: Krystian Lange MD at 0:29 EST , Brain CT 10/22/23 23:30 IMPRESSION: No acute intracranial findings. Electronically Signed: Krystian Lange MD at 0:23 EST , Brain MRI 10/23/23 09:18 IMPRESSION: Unremarkable examination. No evidence for acute infarct or other significant signal abnormality in the brain. Electronically Signed: Diana Faust MD at 11:17 EST , Active Medications Active Medications Active Medications: Current Medications Generic Name Dose Route Start Last Admin Trade Name Freq PRN Reason Stop Dose Admin Acetaminophen 650 mg 10/22/23 00:38 10/23/23 03:52 Acetaminophen 325 Mg Tablet PO 650 mg Q4H PRN PRN Administration Fever, pain 1-06/07 Al Hydroxide/Mg Hydroxide 30 ml 10/22/23 00:38 Mag Hydrox/Al Hydrox/Simeth 30 Ml Udc PO Q6H PRN PRN Gastric Burning Albuterol Sulfate 2.5 mg 10/22/23 00:38 Albuterol 2.5 Mg/3 Ml Vial.Neb. INHALATION Q2H PRN PRN Dyspnea, wheezing Aspirin 81 mg 10/23/23 08:00 10/23/23 08:00 Aspirin 81 Mg Tab.Chew PO Not Given BREAKFAST KAREEM Atorvastatin Calcium 80 mg 10/22/23 22:00 10/22/23 20:27 Atorvastatin Calcium 80 Mg Tablet PO 80 mg QHS KAREEM Administration Epinephrine HCl 0.3 mg 10/22/23 00:38 Epi Pen (Equiv) 0.3 Mg Syringe IM 10/23/23 23:39 X1 PRN Alleric Reaction Gabapentin 300 mg 10/22/23 00:38 10/23/23 07:21 Gabapentin 300 Mg Capsule PO 300 mg Q12 KAREEM Administration Nicardipine/Sodium Chloride 20 mg in 200 mls @ 50 mls/hr 10/22/23 00:38 Cardene-Shlomo 20 Mg/200 Ml Soln CONT INF Q4H PRN See Instructions Protocol 5 MG/HR Famotidine 20 mg/ Sodium 10 mls @ 300 mls/hr 10/22/23 00:38 Chloride IV X1 PRN Allergic Reaction Sodium Chloride 250 mls @ 15 mls/hr 10/22/23 01:18 IV .[id number] PRN Additional IVPB Infusion Sodium Chloride 250 mls @ 15 mls/hr 10/22/23 01:18 IV .[id number] PRN Saline Flush Labetalol HCl 20 mg 10/22/23 00:38 Labetalol (Prefilled) 20 Mg/4 Ml IV X1 PRN BP Goals Melatonin 3 mg 10/22/23 00:38 10/22/23 20:27 Melatonin 3 Mg Tablet PO 3 mg QHS PRN PRN Administration INSOMNIA Methylprednisolone 125 mg 10/22/23 00:38 Methylprednisolone 125 Mg/2 Ml Vial IV X1 PRN Allergic Reaction Ondansetron HCl 4 mg 10/22/23 00:38 Ondansetron 4 Mg/2 Ml Vial IV Q8H PRN PRN NAUSEA/VOMITING Prochlorperazine Edisylate 5 mg 10/22/23 00:38 Prochlorperazine 10 Mg/2 Ml Vial IV Q4H PRN PRN Breakthrough Nausea/Vomiting Senna/Docusate Sodium 2 tablet 10/22/23 00:38 Senna/Docusate Sodium 1 Tablet PO BID PRN PRN Constipation Sodium Chloride 10 ml 10/22/23 00:38 0.9% Saline Lock 10 Ml Syringe IV UD PRN Before/After Tenecteplase Administration Sodium Chloride 10 - 40 ml 10/22/23 01:18 10/23/23 03:53 0.9% Saline Lock 10 Ml Syringe IV 20 ml UD PRN Administration SALINE FLUSH
--- NOTE | 2023-10-23 11:52 | DCINST_ITS ---
Discharge Instructions Diet Discharge Diet: No restrictions Activity Discharge Activity: No Restrictions Weight Bearing Status: Full weight bearing Follow Up Care Test Results: Test results from this visit will be discussed in further detail at your follow- up appointment, if applicable. Discharge Plan Admission Admit Date/Time: 10/21/23 23:36 Primary Reason for Your Visit: strokelike symptoms Attending Provider: Tl Tomas Primary Care Provider: Mike Mercado Consulting Providers: Mike De Paz; Guero Stanford; Yesi Lai; Ninoska Montes De Oca; Lana Magallon; Andrei Martinez; Viry Murillo; Prudencio Prasad; Shane Cummings; Barbara Wolf; Bob Aquino; Sandee Alvarez; Andrea Landa; Robin Gamboa; Param Lai; Meghann Ramírez; Tino Gonzales; Lay Garcia; Michela Werner; Ioana Griffiths; Milton Becker; Jagdish Duenas; Isaac Hernández; Garth Souza; Chacha Rosas; Adi Lau; Lisseth Brock; Inderjit Miller; Sven Castillo; Mark Cox; Buck Bates; Omar Messer; Johnathan Hutchison; Angelique Henao NP; Leilani Reece Discharge Orders/Prescriptions Prescriptions: Continued gabapentin 300 mg capsule 300 mg PO Q12H Patient Comments: take 1 capsule by mouth twice a day Referrals / Follow Up: Mike Mercado MD [Primary Care Provider] - Disposition Disposition (needs filled in before D/C Order can be placed): Home, Self Care
--- NOTE | 2023-10-23 11:57 | DS.PCM_ITS ---
Providers Date of Admission: 10/21/23 Date of Discharge: 10/23/23 Primary Care Physician: Dr. Mike Mercado MD Consultations 10/21/23 22:15 Consult: Driller Machine / Pulmonary Medicine Routine Consulting Provider: [facility] Reason for Consult: stroke for thrombolytic administration EMERGENT Consult: Yes Notified: Yes Date Notified: 10/22/23 Time Notified: 08:42 Method of Notification: Answering Service Comments:: Consult may be done in ED or ICU 10/22/23 00:38 Consult: Tele-Neurology Routine Consulting Provider: [facility] Reason for Consult: stroke for thrombolytic EMERGENT Consult: Yes Notified: Yes Date Notified: 10/21/23 Time Notified: 23:39 Method of Notification: ED Physician Initiated Nursing Unit Staff Notify [facility] of Tele-Neurology Consult: Yes Reason For Visit: CVA S/P TNK, CP Diagnosis Discharge Diagnosis (1) Stroke: Status: Acute Code(s): I63.9 - Cerebral infarction, unspecified (2) Chest pain: Status: Acute Code(s): R07.9 - Chest pain, unspecified Medications at Discharge Home Medications gabapentin 300 mg capsule 300 mg PO Q12H 10/21/23 Hospital Course Operations None Procedures EKG and - (Chest x-ray, CT brain without contrast x 2, CTA head/neck, MRI brain without contrast, CTA chest, venous Doppler study) Summary of Care Provided Minutes Spent on Discharge: 35 Hospital Course: Patient is a 48-year-old female who presented to [facility] ED on 10/21/2023 with chest pain and strokelike symptoms. 1. Strokelike symptoms, CVA ruled out, history of migraines Had sudden onset facial droop and slurred speech with decreased sensation to left side while in ED being worked up for chest pain. Had NIH score of 2. Discussed with on-call teleneurology, decision was made to give tenecteplase and patient was admitted to the ICU. Initial CT head negative, repeat CT head at 24 hours again negative. MRI brain on 10/23 with no acute findings. Lipid panel with LDL 110, HDL 55. A1c 5.5%. ? Neurology followed. Unclear etiology of symptoms. Patient notably has history of migraines that happen 3-5 times per month, has never had aura or other neurologic symptoms associated with migraines that she knows of. Migraines are typically relieved with Excedrin migraine strength and hot showers. Recommend establishing with a neurologist in the outpatient setting to discuss migraine history further. Patient notably tries to avoid taking many medications if possible, may be a better candidate for an abortive agent for migraines like a triptan medication going forward. No need for aspirin or stat in on discharge. 2. Chest pain, resolved ? Cardiac etiology ruled out. Seems most consistent with acid reflux. Presented with centralized chest pain, has history of intermittent acid reflux. EKG was nonacute. Troponins were normal. D-dimer was elevated but CTA chest on 10/23 showed no evidence of PE and lower extremity duplex ultrasound was negative for DVT. Patient reported taking a PPI medication intermittently, educated her that when coming off of a PPI she can have worsened acid reflux symptoms, recommended that she take this medication daily going forward. 3. Elevated BP, resolved ? Unclear etiology, was suspected secondary to possible stroke but may have been due to acute pain or possible migraine. Resolved by discharge, no need for antihypertensive medications on discharge. 4. Morbid obesity ? BMI 49 on admit. Patient states that she was recently referred to a dietitian by her PCP, and I recommended that she see the dietitian when able. Discussed with patient that she could be a good candidate for a GLP-1 medication and recommended she discuss further with her PCP. 5. Recent episode of shingles ? Continue home gabapentin. Total clinical time spent by myself addressing the patient's discharge needs: 35 minutes. Physical Exam Const alert, oriented x3, no apparent distress, healthy appearing and well nourished Constitutional Narrative: Pleasant, morbidly obese. General Appearance: cooperative, comfortable, well kempt and well developed HEENT normocephalic, head/scalp atraumatic, hearing grossly normal bilaterally, nasal mucous membranes and turbinates normal and moist oral mucous membranes Eyes PERRL, EOMs intact bilaterally and conjunctivae normal Neck full ROM, no lymphadenopathy and supple Lymph Lymphatic: no lymphadenopathy noted Chest inspection of chest normal Resp normal respiratory effort, normal air movement, no use of accessory muscles and clear to auscultation bilaterally Cardio regular rate, regular rhythm, no murmurs and peripheral pulses 2+ throughout GI normal to inspection, nondistended, normoactive bowel sounds, soft to palpation, non-tender and non-distended Back/Spine normal ROM Extremity normal to inspection, full ROM and no pedal edema Skin no rashes or lesions noted Neuro no focal motor deficits and no sensory deficits noted Speech: speech normal Motor Exam: strength 5/5 throughout Psych mental status grossly normal Weight / BMI Weight Weight: 118.6 kg Body Mass Index (BMI) 49.4 ABG / Lab / Microbiology Data 10/23/23 03:59 10/23/23 03:59 Laboratory: Laboratory Results - last 24 hr 10/23/23 03:59: WBC 7.8, RBC 4.42, Hgb 13.0, Hct 39.2, MCV 88.7, MCH 29.4, MCHC 33.2, RDW Std Deviation 42.5, RDW Coeff of Rebecca 13.1, Plt Count 290, MPV 9.4, Immature Gran % (Auto) 0.400, Neut % (Auto) 55.1, Lymph % (Auto) 34.2, [place] % (Auto) 8.3, Eos % (Auto) 1.7, Baso % (Auto) 0.3, Absolute Neuts (auto) 4.3, Absolute Lymphs (auto) 2.67, Nucleated RBC % 0, Sodium 138, Potassium 4.0, Chloride 106, Carbon Dioxide 28.0, Anion Gap 4 L, BUN 15, Creatinine 0.70, Estim Creat Clear Calc 120.67, Est GFR (MDRD) Af Amer 115, Est GFR (MDRD) Non-Af 95, BUN/Creatinine Ratio 21.4 H, Glucose 106, Calcium 8.8 Radiography Diagnostic Testing: Radiology Impression Venous Doppler Study 10/21/23 23:41 Interpretation Summary No evidence for acute deep venous thrombosis bilateral lower extremities with patent and compressible bilateral great saphenous veins. Ordering Physician: Ioana Griffiths Referring Physician: Vinod Mercado Performed By: Apryl Shukla RVT Chest CTA 10/22/23 22:51 IMPRESSION: Normal CTA chest examination, without a demonstrated pulmonary embolism or arterial dissection. No acute pulmonary findings. Electronically Signed: Krystian Lange MD at 0:29 EST , Brain CT 10/22/23 23:30 IMPRESSION: No acute intracranial findings. Electronically Signed: Krystian Lange MD at 0:23 EST , Brain MRI 10/23/23 09:18 IMPRESSION: Unremarkable examination. No evidence for acute infarct or other significant signal abnormality in the brain. Electronically Signed: Diana Faust MD at 11:17 EST , D/C Instructions Discharge Diet: No restrictions Weight Bearing Status: Full weight bearing Meaningful Use Info Meaningful Use Diagnoses (Choose all that apply): None applicable Discharge Plan Admission Admit Date/Time: 10/21/23 23:36 Primary Reason for Your Visit: strokelike symptoms Attending Provider: Tl Tomas Primary Care Provider: Mike Mercado Consulting Providers: Mike De Paz; Guero Stanford; Yesi Lai; Ninoska Montes De Oca; Lana Magallon; Andrei Martinez; Viry Murillo; Prudencio Prasad; Shane Cummings; Barbara Wolf; Bob Aquino; Sandee Alvarez; Andrea Landa; Robin Gamboa; Param Lai; Meghann Ramírez; Tino Gonzales; Lay Garcia; Michela Werner; Ioana Griffiths; Milton Becker; Jagdish Duenas; Isaac Hernández; Garth Souza; Chacha Rosas; Adi Lau; Lisseth Brock; Inderjit Miller; Sven Castillo; Mark Cox; Buck Bates; Omar Messer; Johnathan Hutchison; Angelique Henao [employer]INU[employer]NER; Leilani Reece Discharge Orders/Prescriptions Prescriptions: Continued gabapentin 300 mg capsule 300 mg PO Q12H Patient Comments: take 1 capsule by mouth twice a day Referrals / Follow Up: Mike Mercado MD [Primary Care Provider] - Disposition Disposition (needs filled in before D/C Order can be placed): Home, Self Care Charges/Coding Visit Charges Inpatient E&M: 55707 Disch Hosp >30min
== END 2023-10-23 12:50 | disposition home or self-care (01) | DRG 92 ==
LOC: ED 23:24 → ICU 10-22 00:05
PROVIDERS: Student in an Organized Health Care Education/Training Program; Admitting Provider Family Medicine; Emergency Provider Emergency Medicine; PCP Family Medicine; Visit Provider Hospitalist
DX: R29.810 Facial weakness (principal); Z68.42 Body mass index [BMI] 45.0-49.9, adult; B02.9 Zoster without complications; E66.01 Morbid (severe) obesity due to excess calories; G43.909 Migraine, unspecified, not intractable, without status migrainosus; K21.9 Gastro-esophageal reflux disease without esophagitis; M79.7 Fibromyalgia; R03.0 Elevated blood-pressure reading, without diagnosis of hypertension; R07.9 Chest pain, unspecified; R47.81 Slurred speech; Z82.3 Family history of stroke
CPT/HCPCS: 51702; 70450; 70496; 70498; 70551; 71045; 71275; 80048; 80053; 80061; 80076; 82962; 83036; 83690; 83735; 84439; 84443; 84484; 85025; 85379; 92523; 93005; 93970; 97802; 99285; J3101; J7030; Q9957; Q9967; A4216; J2405

== ENCOUNTER 2023-11-01 12:18 | Emergency (ER) | payer OTHER, SELFPAY ==
[2023-11-01 12:19] VITALS: BP 166/90; PULSE 94; RESP 16; TEMP 36.6; O2SAT 100
--- NOTE | 2023-11-01 12:44 | EKG12_ITS ---
Test Reason : CP Blood Pressure : / mmHG Vent. Rate : 082 BPM Atrial Rate : 082 BPM P-R Int : 182 ms QRS Dur : 082 ms QT Int : 376 ms P-R-T Axes : 029 006 026 degrees QTc Int : 439 ms Normal sinus rhythm Possible Left atrial enlargement Borderline ECG Confirmed by Marin Jesus ([id number]), film editor supervisor EVI DURHAM ([id number]) on 11/02/2023 9:37:55 AM Referred By: KARLO Confirmed By:Marin Jesus
--- NOTE | 2023-11-01 13:11 | EKG12_ITS ---
Test Reason : CP Blood Pressure : / mmHG Vent. Rate : 084 BPM Atrial Rate : 084 BPM P-R Int : 194 ms QRS Dur : 078 ms QT Int : 378 ms P-R-T Axes : 026 011 025 degrees QTc Int : 446 ms Normal sinus rhythm Possible Left atrial enlargement Borderline ECG Confirmed by Marin Jesus ([id number]), features editor EVI DURHAM ([id number]) on 11/02/2023 9:38:07 AM Referred By: ASHANTI Confirmed By:Marin Jesus
[2023-11-01] MEDS: Lorazepam 2 MG/ML WCH Syringe 0.5 MG IV (13:22)
[2023-11-01] MEDS: Aspirin 81 MG TAB.CHEW 243 MG PO (13:22)
[2023-11-01] MEDS: 0.9% Normal Saline (1000mL) 1,000 ML 150 ML IV (13:23)
[2023-11-01 13:31] VITALS: BP 142/91; PULSE 80; RESP 12; O2SAT 96
[2023-11-01 13:37] LABS: Absolute Lymphocyte Count 2.23 X10^3/uL (0.83-4.51); Absolute Neutrophil Count 4.9 X10^3/uL (2.0-7.7); Basophil# 0.03 X10^3/uL; Basophil% 0.4 % (0-1); Eosinophil# 0.09 X10^3/uL; Eosinophils% 1.1 % (0-5); Hemoglobin 14.3 g/dL (12.0-15.0); Lymphocyte # 2.23 X10^3/ul (0.83-4.51); Lymphocyte % 28.2 % (19-41); Mean Corpuscular Hgb 29.9 pg (27.0-32.0); Mean Corpuscular Volume 87.9 fL (81-99); Mean Platelet Vol. 9.5 fl (6.2-12.0); Monocyte# 0.59 X10^3/uL; Monocyte% 7.5 % (0-10); NRBC Flagged by Analyzer 0 % (0-5); Neutrophil # 4.94 X10^3/uL (2.7-7.7); Neutrophil % 62.5 % (47-70); Platelet Count 280 K/mm3 (150-450); RBC Distribution Width CV 12.5 % (11.6-14.6); RBC Distribution Width SD 40.4 fl (35.1-43.9); Red Blood Count 4.78 M/mm3 (4.2-5.4); White Blood Count 7.9 K/mm3 (4.4-11.0)
--- NOTE | 2023-11-01 13:45 | CT_ITS ---
INDICATION: weakness EXAMINATION: CT BRAIN - CT Head or Brain W/O Contrast Injection TECHNIQUE: Multiple axial images were obtained of the head without intravenous contrast. A radiation dose optimization technique was used for this scan. IV Contrast dosage and agent: None. RADIATION DOSAGE (If Supplied By Facility): CTDIvol = ( 44.99 ) mGy, DLP = ( 829.85 ) mGycm COMPARISON: Prior study dated: 10/22/2023 FINDINGS: BRAIN PARENCHYMA: No intra- or extra-axial hemorrhage. No evidence of acute infarct. No intracranial mass or mass effect. There is preservation of the benítez/white matter interface. Posterior fossa structures are unremarkable. CSF SPACES: Appropriate for age. No hydrocephalus. Basal cisterns are patent. CALVARIUM, SKULL BASE, PARANASAL SINUSES AND MASTOID AIR CELLS: Clear. No discrete lytic or blastic abnormalities. ORBITS: Both globes, extraocular muscles, optic nerves and retrobulbar fat appear unremarkable. CT/Brain/Head without Contrast IMPRESSION: Negative Brain CT without contrast. Electronically Signed: Truman Orr MD at 14:12 EST ,
--- NOTE | 2023-11-01 13:45 | CT_ITS ---
INDICATION: Pain EXAMINATION: CTA CHEST, ABDOMEN AND PELVIS WITH CONTRAST - TECHNIQUE: A CTA of the chest, abdomen, and pelvis is obtained with sagittal and coronal reconstructed MIP views. Three-dimensional surface rendered sequence of the thoracic and abdominal aorta was obtained. A radiation dose optimization technique was used for this scan. 100 mL of Isovue-300. Oral contrast: None. RADIATION DOSAGE (If Supplied By Facility): CTDIvol = ( 17.03 ) mGy, DLP = ( 1368.41 ) mGycm COMPARISON: No relevant prior comparison study available FINDINGS: THORACIC AORTA: No atheromatous disease, no aneurysmal changes or dissection. ABDOMINAL AORTA: No aneurysm or dissection. No significant atheromatous disease. The iliac arteries are unremarkable. Unremarkable celiac axis, SMA, bilateral renal arteries and ALISE. CT CHEST: LUNGS: The lungs are well-expanded without acute or chronic changes. No effusions or pneumothorax. MEDIASTINUM: The thyroid gland is normal. No mediastinal or hilar adenopathy. HEART: Heart is normal size. No pericardial effusion. No CAD. CT ABDOMEN AND PELVIS: LIVER: The liver enhances homogeneously. No masses identified. GALLBLADDER: The CBD is normal. Normal gallbladder. SPLEEN: Normal. PANCREAS: No masses or inflammation. ADRENAL GLANDS: Normal. KIDNEYS AND URETERS: The kidneys both enhance appropriately. There are normal size and shape. No hydronephrosis or nephrolithiasis. No renal masses or cysts. STOMACH: Normal. SMALL BOWEL: No abnormal distention of the small bowel. MESENTERY: No mesenteric inflammation. No ascites. COLON: No significant diverticulosis, masses or inflammation. The colon otherwise is normal. There is a large fatty ileocecal valve. APPENDIX: The appendix is visualized and normal. IVC: Normal. RETROPERITONEUM: No retroperitoneal lymphadenopathy. PELVIC STRUCTURES: Normal bladder. Absent uterus consistent with previous hysterectomy. SOFT TISSUES ABDOMEN: Diastases of the anterior rectus muscles. SOFT TISSUE CHEST: The extrathoracic soft tissues are normal. BONES: No fractures or significant degenerative disease. CT/CTA Chst, Abd, Pel W and/or WO IMPRESSION: 1. No evidence of thoracic or abdominal aortic aneurysm or aortic dissection. 2. Unremarkable celiac axis, SMA and bilateral renal arteries. 3. No demonstrated acute process. Electronically Signed: Truman Orr MD at 14:24 EST ,
[2023-11-01 13:52] LABS: D-Dimer Quantitative (DVT/PE) 1.31 FEU/ug/m (0.27-0.49)
[2023-11-01 14:02] LABS: AST(SGOT) 35 U/L (15-37); Alanine Aminotransfer ALT/SGPT 40 U/L (13-56); Albumin, Serum 3.5 g/dL (3.2-5.0); Alkaline Phosphatase 109 U/L (45-117); Anion Gap 7 (5-15); BUN 12 mg/dL (7-18); BUN/Creat Ratio 14.3 RATIO (10-20); Bilirubin, Direct 0.14 mg/dL (0.00-0.30); Calcium,Total 9.2 mg/dL (8.5-10.1); Chloride 107 mmol/L (98-107); Creatinine, Serum 0.84 mg/dL (0.55-1.02); EST Glomerular Filtration Rate 78 mL/min (>60); Est Glom Filt Rate - Afr Amer 94 mL/min (>60); Globulin 4.2 g/dL (2.2-4.2); Glucose 98 mg/dL (74-106); Lipase 44 U/L (13-75); Potassium 3.8 mmol/L (3.5-5.1); Protein, Total 7.7 g/dL (6.4-8.2); Sodium Level 142 mmol/L (136-145); Thyroid Stim Hormone (TSH) 2.96 uIU/mL (0.358-3.74); Troponin-I HS (w/2H Reflex) 4 pg/mL (3.0-54.0)
[2023-11-01 14:13] VITALS: BP 131/84; PULSE 85; RESP 17; O2SAT 95
[2023-11-01 15:32] LABS: Reflex Troponin-HS? (from REC) Y
[2023-11-01 16:10] VITALS: BP 154/104; PULSE 79; RESP 14; O2SAT 96
[2023-11-01 16:20] LABS: Troponin-I HS 4 pg/mL (3.0-54.0)
--- NOTE | 2023-11-01 16:24 | EKG12_ITS ---
Test Reason : CP Blood Pressure : / mmHG Vent. Rate : 088 BPM Atrial Rate : 088 BPM P-R Int : 170 ms QRS Dur : 078 ms QT Int : 388 ms P-R-T Axes : 024 007 036 degrees QTc Int : 469 ms Normal sinus rhythm Cannot rule out Inferior infarct , age undetermined Abnormal ECG Confirmed by ROME BATRES, ABHISHEK ([id number]), editor at large EUGENE TYSON ([id number]) on 12/13/2023 8:29:57 AM Referred By: Confirmed By:ABHISHEK PETER MD
--- NOTE | 2023-11-01 16:29 | EDS_ITS ---
HPI History of Present Illness Chief Complaint: Chest Pain Informant: patient Onset/Context/Timing Onset: Today Narrative Narrative: Patient presents secondary to chest pain. She was seen here roughly 10 days ago with chest and epigastric pain. While undergoing chest pain workup she developed left facial droop with some paresthesias. Stroke alert was called and she was given TNK. Patient's troponins were negative. Patient states that she was discharged with Prilosec, aspirin, and Lipitor. She is also currently taking gabapentin because of recent shingles. Patient states that she has felt very weak and fatigued since discharge. Today she developed sharp, heavy, tight pain in the center of her chest. She became short of breath. She states she felt like her face was starting to drawl up on the left again like it did previously. She denies that she was hyperventilating at the time but did feel short of breath. She reportedly had a near syncopal episode and had difficulty getting into the truck. Shortly after arrival here her symptoms started to improve. PFSH PFS Medical History Fibromyalgia Morbid obesity Home Medications gabapentin 300 mg capsule 300 mg PO Q12H 10/21/23 [History Last Taken Unknown] aspirin 81 mg chewable tablet 1 tab PO DAILY 11/01/23 [History Last Taken Unknown] atorvastatin 80 mg tablet 80 mg PO QHS 11/01/23 [History Last Taken Unknown] Allergy/AdvReac Type Severity Reaction Status Date / Time egg Allergy Other Verified 11/01/23 12:22 prednisone AdvReac Nausea/Vom/ Verified 11/01/23 12:22 Diarrhea Family History Mother Rheumatoid arthritis Hypertension Father Hypertension Grandmother VTE (venous thromboembolism) Maternal grandmother. Brother VTE (venous thromboembolism) CVA (cerebral vascular accident) Hypertension Surgical History H/O tubal ligation H/O: hysterectomy S/P tonsillectomy and adenoidectomy Social History household members: spouse Smoking Status: Never smoker alcohol intake: never substance use type: does not use ROS ROS ED Constitutional Constitutional ED: Denies chills or fever(s) Eyes Eyes: Denies change in vision or discharge from eye(s) ENT ENT ED: Denies discharge from eye(s), rhinorrhea or sore throat Cardiovascular Cardiovascular: Reports chest pain and racing heartbeat; Denies palpitations Respiratory/Chest Respiratory/Chest: Reports dyspnea; Denies cough Gastrointestinal Gastrointestinal: Denies abdominal pain, diarrhea, nausea or vomiting Genitourinary Genitourinary ED: Denies dysuria Musculoskeletal Musculoskeletal: Denies back pain or extremity pain Integumentary Denies Abrasions or rash Neurologic Neurologic: Reports weakness; Denies headache(s) Psychiatric Psychiatric: Denies anxiety or depression Allergic/Immunologic Allergic/Immunologic ED: Denies lip swelling or urticaria EXAM Physical Exam Const Vital Signs: 11/01/23 12:19 11/01/23 13:31 11/01/23 14:13 Temperature 97.8 F Temperature Source Temporal Pulse Rate 94 80 85 Respiratory Rate 16 12 17 Blood Pressure 166/90 H 142/91 H 131/84 H Blood Pressure Mean 115 108 99 Pulse Ox 100 96 95 Oxygen Delivery Method Room Air Room Air Room Air 11/01/23 16:10 11/01/23 17:05 11/01/23 17:16 Temperature 97.8 F Temperature Source Pulse Rate 79 77 77 Respiratory Rate 14 12 12 Blood Pressure 154/104 H 149/115 H 149/115 H Blood Pressure Mean 120 126 126 Pulse Ox 96 97 97 Oxygen Delivery Method Room Air Room Air Positive well nourished and well developed General Appearance ED: well developed HEENT Reports moist mucous membranes Chest Wall inspection of chest normal and palpation of chest normal Resp normal respiratory effort and clear to auscultation bilaterally Cardio regular rate and regular rhythm GI soft to palpation and non-tender Extremity normal to inspection Neuro oriented x3 and no sensory deficits noted Neuro Narrative: NIH equals 0 at time of my exam. 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 EKG obtained to evaluate for cardiac arrhythmia/ischemia. Labwork obtained to evaluate for leukocytosis, anemia, and electrolyte derangement. Given her above symptoms and recent workup, CT of the head noncontrast was obtained along with CTA of the chest, abdomen, pelvis. Patient was given 3 additional baby aspirin as she had taken 1 earlier today. She was given 0.5 mg of IV Ativan due to concern for anxiety causing her symptoms. Just before going to CT scan nursing staff states patient ran out feeling like her throat was tightening up. Went back to examine her. Her vitals were all normal. She is speaking with a strong voice and tolerating secretions well. Posterior pharynx exam is unremarkable. History & Record Review Discussion w/independent historian: Patient and Significant other Additional record(s) reviewed:: Prior inpatient record, Prior ED visit and Prior labs Lab Data Attestation: I reviewed the patient's lab results. Labs: Laboratory Results - last 24 hr 11/01/23 11/01/23 13:30 15:55 WBC 7.9 RBC 4.78 Hgb 14.3 Hct 42.0 MCV 87.9 MCH 29.9 MCHC 34.0 RDW Std Deviation 40.4 RDW Coeff of Rebecca 12.5 Plt Count 280 MPV 9.5 Immature Gran % (Auto) 0.300 Neut % (Auto) 62.5 Lymph % (Auto) 28.2 Osborne % (Auto) 7.5 Eos % (Auto) 1.1 Baso % (Auto) 0.4 Absolute Neuts (auto) 4.9 Absolute Lymphs (auto) 2.23 Nucleated RBC % 0 D-Dimer Quant (PE/DVT) 1.31 H* Sodium 142 Potassium 3.8 Chloride 107 Carbon Dioxide 28.0 Anion Gap 7 BUN 12 Creatinine 0.84 Est GFR (MDRD) Af Amer 94 Est GFR (MDRD) Non-Af 78 BUN/Creatinine Ratio 14.3 Glucose 98 Calcium 9.2 Total Bilirubin 0.40 Direct Bilirubin 0.14 AST 35 ALT 40 Alkaline Phosphatase 109 Troponin I High Sens 4 4 Total Protein 7.7 Albumin 3.5 Globulin 4.2 Lipase 44 TSH 2.96 Radiography Diagnostic Testing: Clinical Impression(s) from Imaging Studies Brain CT 11/01/23 13:45 IMPRESSION: Negative Brain CT without contrast. Electronically Signed: Truman Orr MD at 14:12 EST , Chest/Abdomen/Pelvis CTA 11/01/23 13:45 IMPRESSION: 1. No evidence of thoracic or abdominal aortic aneurysm or aortic dissection. 2. Unremarkable celiac axis, SMA and bilateral renal arteries. 3. No demonstrated acute process. Electronically Signed: Truman Orr MD at 14:24 EST , EKG Initial EKG: Attestation: I personally reviewed and interpreted this EKG as follows: Interpretation: Sinus Rhythm (Sinus 82 with no acute ischemia.) Treatment and Re-Evaluation :: CBC was normal white count at 7.9 with a hemoglobin of 14.3. D-dimer elevated at 1.31. Chemistry studies reveal normal potassium at 3.8. Renal function is unremarkable. Initial troponin is 4 with a repeat troponin of 4. LFTs are unremarkable. TSH is normal at 2.96. CT scan of the head is unremarkable. CTA of the chest, abdomen, and pelvis is negative for aneurysm or dissection. No acute process. Initial EKG is sinus rhythm 82 bpm with no acute ischemia. I was notified by nursing staff the patient is complaining of recurrent chest pain. Repeat EKG is obtained and reveals sinus rhythm at 84 bpm. No acute ischemia. Test results discussed with patient as well as spouse at bedside. 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 She has had no arrhythmias on monitor here with 2 normal EKGs and 2 normal troponins. My suspicion for cardiac parish ology is low. She has a follow-up appointment scheduled with her PCP this Tuesday. We discussed the possibility that she may be having side effects from her gabapentin that was started a month ago as she never had any of the symptoms until she started that medication. She is comfortable with discharge to home knowing that she has close follow-up. She was advised that she can return if she is another episode or there are any concerns. Discharge Plan Triage Chief Complaint: Chest Pain ED Provider: Nadia Cardenas Dx/Rx/DC Orders Clinical Impression: Chest pain Instructions: ED Chest Pain, Uncertain Cause Prescriptions: No Action gabapentin 300 mg capsule 300 mg PO Q12H Patient Comments: take 1 capsule by mouth twice a day aspirin 81 mg tablet,chewable 1 tab PO DAILY Patient Comments: chew and swallow 1 tablet by mouth once daily for 30 DAYS atorvastatin 80 mg tablet 80 mg PO QHS Patient Comments: take 1 tablet by mouth at bedtime for 30 DAYS Primary Care Provider: Mike Mercado Referrals: Mike Mercado MD [Primary Care Provider] - [facility] appointment Disposition Disposition: Home, Self Care Discharge Date/Time: 11/01/23 17:19
[2023-11-01 17:05] VITALS: BP 149/115; PULSE 77; RESP 12; O2SAT 97
[2023-11-01 17:16] VITALS: BP 149/115; PULSE 77; RESP 12; TEMP 36.6; O2SAT 97
--- OUTSIDE RECORDS SUMMARY | 2023-11-01 18:24 | XMS RPT_ITS | CCD ---
Author Name Unknown Address [address] [place] [address] Organization [facility] Care Team Providers Care [employer] Name Role Phone Manda Canales MD Primary [...] Translations: [BANANA] Drug Allergy 2 GI Upset [facility] Work Phone: (7 sources) egg extract; Translations: [EGG] Drug Allergy 2 GI Upset [facility] Work Phone: (7 sources) Lactose; Translations: [LACTOSE] Drug Allergy 2 Intolerance [facility] Work Phone: (7 sources) predniSONE; Translations: [PREDNISONE] Drug Allergy 9 Other: See Comments [facility] Work Phone: (5 sources) ENVIRONMENTAL [Other] Propensity to adverse reactions 5 [facility] Work Phone: (1 source) OTHER; Translations: [OTHER] Propensity to adverse reactions (disorder) 5 [facility] Medications Current Medications Medication Drug [...] 97.5 [degF] Manda Canales MD Work Phone: [facility] 10-08-2023 10:19-050 Body weight 118.66 kg Manda Canales MD Work Phone: [facility] 10-08-2023 10:19-0500 Diastolic blood pressure 68 mm[Hg] Manda Canales MD Work Phone: [facility] 10-08-2023 10:19-0500 Heart rate 90 /min Manda Canales MD Work Phone: [facility] 10-08-2023 10:19-0500 Respiratory rate 16 /min Manda Canales MD Work Phone: [facility] 10-08-2023 10:19-0500 SaO2% (BldA) [Mass fraction] 97 % Manda Canales MD Work Phone: [facility] 10-08-2023 10:19-0500 Systolic blood pressure 118 mm[Hg] Manda Canales MD Work Phone: [facility] 10-22-2022 07:57-0500 Body height 160 cm Manda Canales MD Work Phone: [facility] 10-22-2022 07:57-0500 Body weight 116.39 kg Manda Canales MD Work Phone: [facility] 10-22-2022 07:57-0500 Diastolic blood pressure 74 mm[Hg] Manda Canales MD Work Phone: [facility] 10-22-2022 07:57-0500 Heart rate 91 /min Manda Canales MD Work Phone: [facility] 10-22-2022 07:57-0500 Respiratory rate 16 /min Manda Canales MD Work Phone: [facility] 10-22-2022 07:57-0500 SaO2% (BldA) [Mass fraction] 97 % Manda Canales MD Work Phone: [facility] 10-22-2022 07:57-0500 Systolic blood pressure 108 mm[Hg] Manda Canales MD Work Phone: [facility] 09-01-2022 19:01-0500 Body temperature 98.8 [degF] Jorgito Horta MD Work Phone: [facility] 09-01-2022 19:01-0500 Body weight 115.39 kg Jorgito Horta MD Work Phone: [facility] 09-01-2022 19:01-0500 Diastolic blood pressure 82 mm[Hg] Jorgito Horta MD Work Phone: [facility] 09-01-2022 19:01-0500 Heart rate 93 /min Jorgito Horta MD Work Phone: [facility] 09-01-2022 19:01-0500 Respiratory rate 20 /min Jorgito Horta MD Work Phone: [facility] 09-01-2022 19:01-0500 SaO2% (BldA) [Mass fraction] 97 % Jorgito Horta MD Work Phone: [facility] 09-01-2022 19:01-0500 Systolic blood pressure 128 mm[Hg] Jorgito Horta MD Work Phone: [facility] Encounters Encounter Date Encounter Type Care Provider Facility Start: 10-08-2023 End: 10-08-2023 ambulatory MANDA CANALES Facility:[facility] Start: 10-08-2023 End: 10-08-2023 Patient encounter procedure Manda Canales MD Work Phone: [facility] [place] Procedures Date Procedure Procedure Detail Performing Clinician Start: 10-22-2022 Lipid 1996 panel - S saima or Plasma Manda Canales MD Work Phone: Start: 09-01-2022 COVID WITH FLUA+B, ROUTINE Jorgito Horta MD Work Phone: Start: 07-04-2019 Mammography Jorgito esparza MD Work Phone: Start: 07-03-2019 Colonoscopy Jorgito esparza MD Work Phone: Plan of Treatment Date Care Activity Detail Author Start: 06-28-2029 Urine microalbumin profile [facility] Start: 10-22-2027 Lipid panel Lipid Screening [facility] Start: 10-22-2027 LIPID SCREEN LIPID SCREEN [facility] Start: 11-24-2025 LIPID SCREEN LIPID SCREEN [facility] Start: 10-22-2025 DIABETES SCREEN DIABETES SCREEN [facility] Start: 10-22-2025 Diabetes Screening Diabetes Screenin g [facility] Start: 07-03-2024 Colonoscopy COLONOSCOPY [facility] Start: 07-03-2024 COLORECTAL CANCER SCREENING COLORECTAL CANCER SCREENING [facility] Start: 07-03-2024 Screening for malign ant neoplasm of colon [facility] Start: 11-25-2023 DIABETES SCREEN DIABETES SCREEN [facility] Start: 10-22-2023 COVID-19 VACCINE (#1) COVID-19 VACCI NE (#1) [facility] Immunizations Immunization Date Immunization Notes Care Provider Fa cility 06-28-2019 tetanus toxoid, redu mandi diphtheria toxoid, and acellular pertussis vaccine, adsorbed Jorgito Horta MD Work Phone: [facility] 11-10-2016 influenza virus vaccine, unspecified formulation Manda Canales MD Work Phone: [facility] 11-10-2014 tetanus and diphther ia toxoids, not adsorbed, for adult use Jorgito Horta MD Work Phone: [facility] Payers Date Payer Category Payer Unknown [id number] 2020 Private Health Insurance [id number] 2020 Private Health Insurance [id number] Social History Date Type Detail Facility Start: 09-01-2022 Tobacco smoking stat us ARIS Ex-smoker [facility] End: 03-23-1993 History of tobacco use Current smoker [facility] End: 03-23-1993 History of tobacco use Cigarette Smoker [facility] Start: 09-01-2022 Tobacco use and exposure Smoke less tobacco non-user [facility] Start: 09-01-2022 End: 10-08-2023 Alcohol intake Current drinker of alcohol (finding) [facility] Start: 10-07-2020 End: 10-19-2022 History SDOH Alcohol Frequency 2 [facility] Start: 10-07-2020 End: 10-19-2022 History SDOH Alcohol Std Drinks 1 [facility] Start: 10-07-2020 History SDOH Social Connections Phone 98 [facility] Start: 10-07-2020 End: 10-19-2022 History SDOH Social Connections Living 3 [facility] Start: 10-07-2020 End: 10-19-2022 History SDOH Financial 5 [facility] Start: 10-06-2020 Education 21 [facility] Start: 06-28-2019 Alcohol Comment rarely Hanna duran [facility] Start: 1975 Sex Assigned At Female C [facility] Start: 10-22-2022 Alcohol Comment once per month Roberto Carlos [facility] Start: 10-18-2022 End: 04-08-2023 History of Social function [facility] Start: 10-18-2022 End: 04-08-2023 Social connection and isolation panel [facility] Do you belong to any clubs or organizations such as evangelical groups, unions, fraternal or athletic groups, or school groups? No [facility] Are you now , , , , never or living with a partner? [facility] How often to you hav e a drink containing alcohol? Monthly or less [facility] How many standard dr inks containing alcohol do you have on a typical day? 1 or 2 [facility] How often do you hav e 6 or more drinks on 1 occasion? Never [facility] How hard is it for y ou to pay for the very basics like food, housing, medical care, and heating Not hard at all [facility] Do you feel stress - tense, restless, nervous, or anxious, or unable to sleep at night because your mind is troubled all the time - these days [OSQ] To some extent [facility] (I/We) worried wheth er (my/our) food would run out before (I/we) got money to buy more. Never true [facility] Start: 10-06-2020 Gender identity Identifies as female gender (finding) [facility] Start: 10-06-2020 Sexual orientation Heterosexual (ruth reina) [facility] Clinical Notes 08-29-2000 to 10-08-2023 Manda Canales MD - 10/08/2023 10:17 AM ESTTelephone Encounter - Lalita Hagan LPN - 10/25/2022 5:00 PM ESTTelephone Encounter - Manda Canales MD - 10/25/2022 3:43 PM EST Note Date & Type Note Facility 10-08-2023 Note HNO ID: [id number] Author: MANDA CANALES MD Service: ? Author [...] with shingles rash along T6 dermatome at [facility] ED on 09/27. Pain started [...] rectal bleeding resolved after hysterectomy. GI in [place] Depression Dysfunctional uterine bleeding 2006 s/p hysterectomy Dysmenorrhea Eczema Esophageal reflux Gastroesophageal reflux Fibromyalgia Generalized anxiety disorder Lactose intolerance Lichen sclerosus Morbid obesity (HCC) Other acne Acne Recurrent cold sores Scalp psoriasis Vitamin D insufficiency Previous Surgical History PAST SURGICAL HISTORY Procedure Laterality Date COLONOSCOPY 2009 multiple for crohns disease. [place]. Benign polyp COLONOSCOPY 09/21/2005 active colitis at [...] due on 06/28/20 (more content not included)... [facility] 10-08-2023 History of Presen t illness Narrative Chief Complaint Patient presents with: ER F/U: Shingles- patient also has left eye issue wondering if shingle related as shingle developed on Left side. HPI Zunilda Leon is a 48 year old female who presents here today for Above Complaints.. Patient diagnosed with shingles rash along T6 dermatome at [facility] ED on 09/27. Pain started [...] rectal bleeding resolved after hysterectomy. GI in [place] Depression Dysfunctional uterine bleeding 2006 s/p hysterectomy Dysmenorrhea Eczema Esophageal reflux Gastroesophageal reflux Fibromyalgia Generalized anxiety disorder Lactose intolerance Lichen sclerosus Morbid obesity (HCC) Other acne Acne Recurrent cold sores Scalp psoriasis Vitamin D insufficiency Previous Surgical History PAST SURGICAL HISTORY Procedure Laterality Date COLONOSCOPY 2009 multiple for crohns disease. [place]. Benign polyp COLONOSCOPY 09/21/2005 active colitis at [...] Manda Canales MD documented in this encounter [facility] 09-07-2023 Note Patient Outreach (IN [facility]) ZUNLIDA LEON ([id number]) 1975 F Date Time Provider Department 09/07/23 [...] for screening mammogram for breast cancer [Z12.31] Order(s):[facility] SCREENING [[id number]] Order #: [id number] FUTURE Prescriptions as of 09/12/2023 - clobetasol [...] D insufficiency [E55.9] 10/25/2022 Encounter Status:Closed by Gungroo PRODUSER on 09/12/23 [facility] 10-25-2022 Miscellaneous Notes Patient notified of [...] Esha Flores RN documented in this encounter [facility] 10-22-2022 Note HNO ID: [id number] Author: Manda Canales MD Service: ? Author [...] Date COLONOSCOPY 2009 multiple for crohns disease. [place]. Benign polyp COLONOSCOPY 09/21/2005 active colitis at [...] Negative for ch (more content not included)... [facility] 10-22-2022 History of Presen t illness [...] Date COLONOSCOPY 2009 multiple for crohns disease. [place]. Benign polyp COLONOSCOPY 09/21/2005 active colitis at [...] No history of dysuria, frequency or incontinence MULTIFOLD OPERATOR: Negative for abnormal vaginal bleeding, abnormal vaginal [...] discoloration, clubbing or cyanosis. Good capillary refill. MULTIFOLD OPERATOR: Patient deferred exam Musculoskeletal: No joint swelling, [...] diet of 1000 mg/day for under 50, 2885-9342 mg/day for 50+ - Discussed need and [...] as requested. Recommended she follow up with MULTIFOLD OPERATOR for persistent rash since she is refusing exam today. 7. HSV-1 (herpes simplex virus 1) infection - ICD9: 054.9, ICD10: B00.9 See above. Manda Canales MD documented in this encounter [facility] 09-01-2022 History of Presen t illness Narrative [...] Jorgito Horta MD documented in this encounter [facility] documented as of this encounter (statuses as of 09/03/2022) [facility]2001 History of Past illness Narrative* Problem Noted Date Resolved Date Crohn's disease 08/29/2000 07/03/2019 Overview: crohns disease, rectal bleeding, resolved after hysterectomy. documented as of this encounter (statuses as of 10/04/2022) [facility] History of Past illness Narrative* Problem Noted Date Resolved Date Crohn's disease 08/29/2000 07/03/2019 Overview: crohns disease, rectal bleeding, resolved after hysterectomy. documented as of this encounter (statuses as of 10/26/2022) [facility] History of Past illness Narrative* Problem Noted Date Resolved Date Crohn's disease 08/29/2000 07/03/2019 Overview: crohns disease, rectal bleeding, resolved after hysterectomy. documented as of this encounter (statuses as of 10/28/2022) [facility] History of Past illness Narrative* Problem Noted Date Diagnosed Date Resolved Date Crohn's disease 08/29/2000 07/03/2019 Overview: crohns disease, rectal bleeding, resolved after hysterectomy. documented as of this encounter (statuses as of 09/12/2023) [facility] History of Past illness Narrative* Problem Noted Date Diagnosed Date Resolved Date Crohn's disease 08/29/2000 07/03/2019 Overview: crohns disease, rectal bleeding, resolved after hysterectomy. 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 Encounter for screening mammogram for breast cancer [facility] Diagnosis Vitamin D insufficiency- Primary Unspecified vitamin D deficiency Elevated AST (SGOT) Nonspecific elevation of levels of transaminase or lactic acid dehydrogenase (LDH) Neutropenia, unspecified type (HCC) [facility] Diagnosis Annual physical exam- Primary Routine general medical examination at a health care facility Gastroesophageal reflux disease, unspecified whether esophagitis present Generalized anxiety disorder Morbid obesity (HCC) Morbid obesity Recurrent cold sores Herpes simplex without mention of complication Lichen sclerosus 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 Herpes simplex without mention of complication [facility] Diagnosis Encounter for screening mammogram for breast cancer [facility] Diagnosis Herpes zoster without complication- Primary Herpes zoster without mention of complication Post herpetic neuralgia Herpes zoster with other nervous system complications Bacterial conjunctivitis Other conjunctivitis documented in this encounter [facility] for referral (narrative)* Diagnostic Procedure Only (Routine) - Pending Review Specialty Diagnoses / Procedures Referred By Court goodwin Referred To Contact [facility] Diagnoses Encounter for screening mammogram for breast cancer Procedures MONY SCREENING SCREENING MAMMOGRAPHY BI 2-VIEW BREAST INC CAD Manda Canales MD [address] [place] [address] [facility] [address] [place] [id number] Referral ID Status Reason Start Date Expiration Date Visits Requested Visits Authorized [id number] Pending Review Auto-Generat ed Referral 09/29/2022 10/29/2023 1 1 [facility] Diagnostic Procedure Only (Routine) - Pending Review Specialty Diagnoses / Procedures Referred By Contac t Referred To Contact [facility] Diagnoses Encounter for screening mammogram for breast cancer Procedures MONY SCREENING SCREENING MAMMOGRAPHY BI 2-VIEW BREAST INC CAD Manda Canales MD [address] [place] [address] [facility] [address] [place] [address] Referral ID Status Reason Start Date Expiration Date Visits Requested Visits Authorized [id number] Pending Review Auto-Generat ed Referral 09/07/2023 10/06/2024 1 1 [facility] Health Concerns Infection Onset Date Last Indicated [...] or prosecute any alcohol or drug abuse patient.[facility] the event this information is protected by the Federal Confidentiality of Alcohol and Drug Abuse Patient Records regulations: The Federal rules restrict any use of the information to criminally investigate or prosecute any alcohol or drug abuse patient.[facility] the event this information is protected by the Federal Confidentiality of Alcohol and Drug Abuse Patient Records regulations: The Federal rules restrict any use of the information to criminally investigate or prosecute any alcohol or drug abuse patient.[facility] the event this information is protected by the Federal Confidentiality of Alcohol and Drug Abuse Patient Records regulations: The Federal rules restrict any use of the information to criminally investigate or prosecute any alcohol or drug abuse patient.[facility] the event this information is protected by the Federal Confidentiality of Alcohol and Drug Abuse Patient Records regulations: The Federal rules restrict any use of the information to criminally investigate or prosecute any alcohol or drug abuse patient.[facility] the event this information is protected by the Federal Confidentiality of Alcohol and Drug Abuse Patient Records regulations: The Federal rules restrict any use of the information to criminally investigate or prosecute any alcohol or drug abuse patient.[facility] Reason for Visit (unrecogniz ed section and content) Reason Comments Results Reason Comments Physical Wanting to discuss w eight loss options. Reason Comments ER F/U Shingles- patient al so has left eye issue wondering if shingle related as shingle developed on Left side. Care Teams (unrecognized sec tion and content) [employer] Relationship Specialty Start Date End Date Manda Canales MD [address] [place], [place] [address] PCP - General Family Medicine 06/28/19 [employer] Relationship Specialty Start Date End Date Manda Canales MD [address] [place], [place] [address] PCP - General Family Medicine 06/28/19 [employer] Relationship Specialty Start Date End Date Manda Canales MD [address] [place] [address] PCP - General Family Medicine 06/28/19 [employer] Relationship Specialty Start Date End Date Manda Canales MD [address] [place] [address] PCP - General Family Medicine 06/28/19 [employer] Relationship Specialty Start Date End Date Manda Canales MD [address] [place], [place] [id number] PCP - General Family Medicine 06/28/19 INFORMATION [...] BE BASED ON THE PRIMARY CLINICAL RECORDS. [facility]. provides no warranty or guarantee of the accuracy or completeness of information in this document.
== END 2023-11-01 17:19 | disposition home or self-care (01) ==
PROVIDERS: Emergency Provider Emergency Medicine; PCP Family Medicine; Visit Provider Emergency Medicine
DX: R07.9 Chest pain, unspecified (principal); Z98.51 Tubal ligation status; Z90.710 Acquired absence of both cervix and uterus; R53.83 Other fatigue; R53.1 Weakness
CPT/HCPCS: 70450; 71275; 74174; 80048; 80076; 83690; 84443; 84484; 85025; 85379; 93005; 96361; 96374; 99284; J7030; Q9967; A4216

== ENCOUNTER 2023-12-12 20:17 | Observation (INO) | payer OTHER, SELFPAY ==
[2023-12-12 20:18] VITALS: BP 149/96; PULSE 88; PULSE 94; RESP 19; TEMP 36.6; O2SAT 100; BMI 48.5
[2023-12-12 20:22] VITALS: BP 149/96; PULSE 88; RESP 16; TEMP 36.6; O2SAT 100
[2023-12-12 20:58] LABS: Absolute Neutrophil Count 4.1 X10^3/uL (2.0-7.7); Basophil# 0.05 X10^3/uL; Basophil% 0.4 % (0-1); Eosinophil# 0.18 X10^3/uL; Eosinophils% 1.6 % (0-5); Hematocrit 42.7 % (37-47); Hemoglobin 14.4 g/dL (12.0-15.0); Lymphocyte % 54.4 % (19-41); Mean Corp Hgb Conc 33.7 g/dL (32-36); Mean Corpuscular Hgb 29.2 pg (27.0-32.0); Mean Corpuscular Volume 86.6 fL (81-99); Mean Platelet Vol. 9.6 fl (6.2-12.0); Monocyte# 0.78 X10^3/uL; NRBC Flagged by Analyzer 0 % (0-5); Neutrophil # 4.05 X10^3/uL (2.7-7.7); Neutrophil % 36.2 % (47-70); POSITIVE DIFFERENTIAL YES; Platelet Count 313 K/mm3 (150-450); RBC Distribution Width CV 12.4 % (11.6-14.6); RBC Distribution Width SD 39.2 fl (35.1-43.9); Red Blood Count 4.93 M/mm3 (4.2-5.4); White Blood Count 11.2 K/mm3 (4.4-11.0)
[2023-12-12 21:12] LABS: Bacteria 0 SEEN /hpf (None Seen); Mucous, Urine 0 SEEN /hpf (<or=2+); Red Blood Cells-Urine 0 SEEN /hpf (0-5); White Blood Cells 0 SEEN /hpf (0-5)
[2023-12-12 21:17] LABS: Color, Urine Yellow (Yellow); Glucose, Dipstick Normal (Normal); Ketone-Dipstick Negative (Negative); Leukocyte Esterase-Dipstick Negative /ul (Negative); Nitrite-Dipstick Negative (Negative); Occult Blood-Urine Negative /ul (Negative); Protein-Dipstick Negative (Negative); Specific Gravity, Urine 1.005 (1.002-1.030); Urine Bilirubin Dipstick Negative (Negative); Urine Clarity Clear (Clear); Urine Urobilinogen Normal (Normal)
[2023-12-12 21:19] LABS: Differential Indicated SCAN CRITERIA MET
[2023-12-12 21:22] VITALS: BP 151/83; PULSE 82; RESP 16; TEMP 36.8; O2SAT 98
[2023-12-12 21:28] LABS: Squamous Epithelial Cells - UA 0-5 SEEN /hpf (5-10)
[2023-12-12 21:28] LABS: Anisocytosis RARE; Platelet Estimate ADEQUATE (ADEQ); Red Cell Morphology NORM C+C NORMAL (NORM C&C)
--- NOTE | 2023-12-12 21:28 | US_ITS ---
EXAM: US Abdomen RUQ (limited) HISTORY: ruq pain TECHNIQUE: Right upper quadrant. COMPARISON: None. LIMITATIONS: None. FINDINGS: LIVER: 14.6 cm length. Increased echogenicity. GALLBLADDER Size: Distended. Stones: Multiple stones. Wall thickness: Not thickened. 2 mm. Pericholecystic fluid: None. Sonographic Toledo sign: Positive. EXTRAHEPATIC BILE DUCTS: Common bile duct 6 mm not dilated. PANCREAS: Not visualized, obscured by bowel gas. RIGHT KIDNEY: No hydronephrosis. ASCITES: None. US/Gallbladder IMPRESSION: Cholelithiasis. Positive sonographic Toledo sign may be consistent with acute cholecystitis with no other definitive ultrasound findings. Fatty infiltration liver. Electronically Signed: Blanca Castro MD at 22:19 EDT ,
[2023-12-12 21:30] LABS: AST(SGOT) 37 U/L (15-37); Alanine Aminotransfer ALT/SGPT 48 U/L (13-56); Albumin, Serum 3.5 g/dL (3.2-5.0); Alkaline Phosphatase 131 U/L (45-117); Anion Gap 6 (5-15); BUN 13 mg/dL (7-18); BUN/Creat Ratio 17.2 RATIO (10-20); Bilirubin, Direct 0.13 mg/dL (0.00-0.30); Calcium,Total 8.9 mg/dL (8.5-10.1); Chloride 106 mmol/L (98-107); Creatinine, Serum 0.76 mg/dL (0.55-1.02); EST Glomerular Filtration Rate 87 mL/min (>60); Est Glom Filt Rate - Afr Amer 106 mL/min (>60); Estimated Creatinine Clearance 109.96 ml/min; Globulin 4.1 g/dL (2.2-4.2); Glucose 111 mg/dL (74-106); Potassium 3.4 mmol/L (3.5-5.1); Protein, Total 7.6 g/dL (6.4-8.2); Sodium Level 140 mmol/L (136-145); Troponin-I HS < 3 pg/mL (3.0-54.0)
[2023-12-12] MEDS: Morphine 4 MG/ML Syringe IV (21:40)
[2023-12-12] MEDS: Ondansetron 4 MG/2 ML Vial IV (21:40)
[2023-12-12 22:00] VITALS: BP 162/102; PULSE 80; RESP 16; TEMP 37.1; O2SAT 97
[2023-12-12 23:00] VITALS: BP 165/88; PULSE 84; RESP 16; TEMP 36.4; O2SAT 100
[2023-12-12] MEDS: HYDROmorphone 0.5 MG/0.5 ML SYRINGE IV (23:00)
--- NOTE | 2023-12-12 23:57 | EDS_ITS ---
HPI HPI - GI History of Present Illness Chief Complaint: Chest Pain Narrative Narrative: 48-year-old female presenting with right upper quadrant pain epigastric pain which radiates up into her esophagus. She reports that prior to this pain started she ate some things in a blanket. She states has been having problems with abdominal pain associated with eating. Has not had any workup. She states that she is concerned that it is radiating up into her chest. She does have no known cardiac history. She has history of hyperlipidemia, GERD. On daily aspirin. No fevers, chills, cough. No diarrhea or constipation. No urinary or vaginal complaints. [facility] Medical History Fibromyalgia Morbid obesity Home Medications aspirin 81 mg chewable tablet 1 tab PO DAILY 11/01/23 [History Last Taken Unknown] atorvastatin 80 mg tablet 80 mg PO QHS 11/01/23 [History Last Taken Unknown] lansoprazole 30 mg capsule,delayed release 30 mg PO DAILY 12/12/23 [History Last Taken Unknown] Allergy/AdvReac Type Severity Reaction Status Date / Time egg Allergy Other Verified 12/12/23 20:24 prednisone AdvReac Nausea/Vom/ Verified 12/12/23 20:24 Diarrhea Family History Mother Rheumatoid arthritis Hypertension Father Hypertension Grandmother VTE (venous thromboembolism) Maternal grandmother. Brother VTE (venous thromboembolism) CVA (cerebral vascular accident) Hypertension Surgical History H/O tubal ligation H/O: hysterectomy S/P tonsillectomy and adenoidectomy Social History household members: spouse Smoking Status: Never smoker alcohol intake: never substance use type: does not use ROS ROS ED Constitutional Constitutional ED: Denies chills, fever(s) or sweats Eyes Eyes: Denies blurry vision or change in vision ENT ENT ED: Denies ear pain or sore throat Cardiovascular Cardiovascular: Denies chest pain, palpitations or racing heartbeat Respiratory/Chest Respiratory/Chest: Denies cough, dyspnea or sputum Gastrointestinal Gastrointestinal: Reports abdominal pain and nausea; Denies constipation, diarrhea or vomiting Genitourinary Genitourinary ED: Denies dysuria, hematuria or urinary frequency Musculoskeletal Musculoskeletal: Denies arthralgias, myalgias or neck pain Integumentary Denies abscess, Abrasions or rash Neurologic Neurologic: Denies headache(s), paresthesias or weakness Psychiatric Psychiatric: Denies anxiety, depression, suicidal ideation or suicidal thoughts Endocrine Endocrinology: Denies polydipsia or polyuria EXAM Physical Exam Const Vital Signs: 12/12/23 20:18 12/12/23 20:18 12/12/23 20:22 Temperature 98 F 98 F 98 F Temperature Source Temporal Temporal Temporal Pulse Rate 94 88 88 Respiratory Rate 19 H 19 H 16 Blood Pressure 149/96 H 149/96 H 149/96 H Blood Pressure Mean 113 113 113 Pulse Ox 100 100 100 Oxygen Delivery Method Room Air Room Air Room Air 12/12/23 21:22 12/12/23 22:00 12/12/23 23:00 Temperature 98.2 F 98.7 F 97.5 F L Temperature Source Oral Oral Temporal Pulse Rate 82 80 84 Respiratory Rate 16 16 16 Blood Pressure 151/83 H 162/102 H 165/88 H Blood Pressure Mean 105 122 113 Pulse Ox 98 97 100 Oxygen Delivery Method Room Air Room Air Room Air Positive well nourished General Appearance ED: NAD; Negative for pallor HEENT Reports moist mucous membranes normocephalic Eyes PERRL and EOMs intact bilaterally Resp normal respiratory effort Cardio regular rate and regular rhythm GI Palpation: tender epigastric and Toledo's sign Neuro CN's II-XII intact bilaterally Sensorium / Orientation: alert, oriented to person, oriented to place and oriented to time Motor Exam: strength 5/5 throughout Psych mental status grossly normal Skin General Skin Exam: Negative for jaundice or pallor MDM MDM MDM Narrative Medical decision making narrative: Patient presenting with right upper quadrant pain after eating peas and a blanket. Differential includes gastritis, GERD, gastroenteritis, angry otitis, cholelithiasis, cholecystitis, choledocholithiasis. CBC was obtained to assess for blood cell count, hemoglobin, platelets. CMP to assess liver function, renal function, electrolytes, glucose. Lipase was ordered but is a send out tonight because of her missing the reagent. High-sensitivity troponin and EKG will be obtained to evaluate chest pain. Will obtain a gallbladder ultrasound. Patient was given morphine and IV fluids. She was also given Zofran. Ultimately CBC showed a mild leukocytosis 11.2. Hemoglobin hematocrit are stable. Platelets are normal. Renal function appears to be normal. LFTs only showed elevation in alkaline phosphatase 131. EKG on my interpretation shows a sinus rhythm at 88 bpm without sign of ischemic change or dysrhythmia. High- sensitivity troponin less than 3. I feel this is unlikely to be cardiac given her abdominal pain. Gallbladder ultrasound was obtained and shows concern for gallstones. There is concern for cholecystitis. Discussed with Dr. He will admit the patient. Patient given Zosyn and Protonix IV. Stable on admission. Impression: 1. Acute cholecystitis Lab Data Attestation: I reviewed the patient's lab results. Labs: Laboratory Results - last 24 hr 12/12/23 12/12/23 20:47 21:02 WBC 11.2 H RBC 4.93 Hgb 14.4 Hct 42.7 MCV 86.6 MCH 29.2 MCHC 33.7 RDW Std Deviation 39.2 RDW Coeff of Rebecca 12.4 Plt Count 313 MPV 9.6 Immature Gran % (Auto) 0.400 Neut % (Auto) 36.2 L Lymph % (Auto) 54.4 H [place] % (Auto) 7.0 Eos % (Auto) 1.6 Baso % (Auto) 0.4 Absolute Neuts (auto) 4.1 Absolute Lymphs (auto) 6.10 H Nucleated RBC % 0 Differential Comment SEE COMMENT Platelet Estimate ADEQUATE RBC Morphology NORM C+C Anisocytosis RARE Sodium 140 Potassium 3.4 L Chloride 106 Carbon Dioxide 28.0 Anion Gap 6 BUN 13 Creatinine 0.76 Estim Creat Clear Calc 109.96 Est GFR (MDRD) Af Amer 106 Est GFR (MDRD) Non-Af 87 BUN/Creatinine Ratio 17.2 Glucose 111 H Calcium 8.9 Total Bilirubin 0.30 Direct Bilirubin 0.13 AST 37 ALT 48 Alkaline Phosphatase 131 H Troponin I High Sens < 3 L Total Protein 7.6 Albumin 3.5 Globulin 4.1 Urine Color Yellow Urine Clarity Clear Urine pH 7.0 Ur Specific [place] 1.005 Urine Protein Negative Urine Glucose (UA) Normal Urine Ketones Negative Urine Occult Blood Negative Urine Nitrite Negative Urine Bilirubin Negative Urine Urobilinogen Normal Ur Leukocyte Esterase Negative Urine RBC 0 SEEN Urine WBC 0 SEEN Ur Squamous Epith Cells 0-5 SEEN Urine Bacteria 0 SEEN Urine Mucus 0 SEEN Radiography Diagnostic Testing: Clinical Impression(s) from Imaging Studies Gallbladder Ultrasound 12/12/23 21:28 IMPRESSION: Cholelithiasis. Positive sonographic Toledo sign may be consistent with acute cholecystitis with no other definitive ultrasound findings. Fatty infiltration liver. Electronically Signed: Blanca Castro MD at 22:19 EDT Reading Location ID and State: [address] [place] [address] Tel , Service support , Discharge Plan Triage Chief Complaint: Chest Pain ED Provider: Wally Weiss Dx/Rx/DC Orders Prescriptions: No Action lansoprazole 30 mg capsule,delayed release(DR/EC) 30 mg PO DAILY aspirin 81 mg tablet,chewable 1 tab PO DAILY Patient Comments: chew and swallow 1 tablet by mouth once daily for 30 DAYS atorvastatin 80 mg tablet 80 mg PO QHS Patient Comments: take 1 tablet by mouth at bedtime for 30 DAYS Primary Care Provider: Mike Mercado Referrals: Mike Mercado MD [Primary Care Provider] -
--- NOTE | 2023-12-12 23:57 | PCM.HP.STD ---
[facility] - General General Date of Admission: 12/12/23 Chief Complaint: Chest pain [facility] Narrative HECTOR LEON, is a 48 F who presents to [facility] with her with complaints of chest pain that began approximately at 7 PM this evening after taking dinner at approximately 5 PM. She shares that her chest pain simply went calm down and then became associated also with some back pain which presented more in waves. She does acknowledge some associated nausea and belching with chest pain. She reports that it is presently well-controlled on her current medications. She shares that she deals with chronic constipation but over the last several weeks has noticed that her stools have been more yellow. Patient's ER workup is notable for CMP with mildly elevated alkaline phosphatase at 131. CBC shows mildly elevated WBC 11.2. Troponin is obtained was not elevated. Right upper quadrant ultrasound was performed and found evidence of cholelithiasis with normal gallbladder wall thickness, no pericholecystic fluid, normal CBD diameter, but positive sonographic Toledo sign concerning for cholecystitis. Patient reports an ongoing workup for complaints of this chest pain as well as some facial drooping. She notes at the end of August she was diagnosed with shingles and this infection cause pain under her left breast going into her left mid back. Then the following month she presented with severe chest pain and facial droop on the left side. The findings were concerning enough that she was ministered tenecteplase and observed in the ICU. She shares she underwent a battery of testing including MRI and CT imaging that all returned negative. She was instructed to follow-up with her PCP, cardiology, and neurology out of this. Unfortunately, however, she presented in October with similar complaints of facial droop and chest pain. She was advised at that time that it been to close since her last tenecteplase administration to readminister. Instead she was observed and thereafter underwent the outpatient evaluations by cardiology and neurology. She shares that she is presently on a 30-day event monitor for cardiology but to date has had a negative stress test and was advised that she no longer needed to take the recommended aspirin and Lipitor. She shares she also followed up with stroke neurology and they have excluded a stroke event but remain concerned for seizure activity. Therefore, it is a recommendation to follow-up with general neurology. Patient has a diagnosis of morbid obesity and she shares that she has tried to lose weight in the last year, however, this has been largely unsuccessful. She reports a 25 pound weight loss but approximately 10 pound weight regain. Patient's past surgical history includes tubal ligation and hysterectomy [facility] Medical History Fibromyalgia Morbid obesity Home Medications aspirin 81 mg chewable tablet 1 tab PO DAILY 11/01/23 [History Last Taken Unknown] atorvastatin 80 mg tablet 80 mg PO QHS 11/01/23 [History Last Taken Unknown] lansoprazole 30 mg capsule,delayed release 30 mg PO DAILY 12/12/23 [History Last Taken Unknown] Allergy/AdvReac Type Severity Reaction Status Date / Time egg Allergy Other Verified 12/12/23 20:24 prednisone AdvReac Nausea/Vom/ Verified 12/12/23 20:24 Diarrhea Family History Mother Rheumatoid arthritis Hypertension Father Hypertension Grandmother VTE (venous thromboembolism) Maternal grandmother. Brother VTE (venous thromboembolism) CVA (cerebral vascular accident) Hypertension Surgical History H/O tubal ligation H/O: hysterectomy S/P tonsillectomy and adenoidectomy Social History household members: spouse Smoking Status: Never smoker alcohol intake: never substance use type: does not use Vital Signs Vital Signs Vital Signs: 12/12/23 20:18 12/12/23 20:18 12/12/23 20:22 Temperature 98 F 98 F 98 F Temperature Source Temporal Temporal Temporal Pulse Rate 94 88 88 Respiratory Rate 19 H 19 H 16 Blood Pressure 149/96 H 149/96 H 149/96 H Blood Pressure Mean 113 113 113 Pulse Ox 100 100 100 Oxygen Delivery Method Room Air Room Air Room Air 12/12/23 21:22 12/12/23 22:00 12/12/23 23:00 Temperature 98.2 F 98.7 F 97.5 F L Temperature Source Oral Oral Temporal Pulse Rate 82 80 84 Respiratory Rate 16 16 16 Blood Pressure 151/83 H 162/102 H 165/88 H Blood Pressure Mean 105 122 113 Pulse Ox 98 97 100 Oxygen Delivery Method Room Air Room Air Room Air Weight Weight: 257 lb Body Mass Index (BMI) 48.5 Physical Exam Const alert and well nourished Constitutional Narrative: Anxious and appears frustrated/distraught Eyes Eyes Narrative: Normal sclera Resp normal respiratory effort GI GI Narrative: Morbidly obese, no scars, nondistended, soft, focally tender in the right upper quadrant with positive Toledo sign Results Lab / Micro Data 12/12/23 20:47 12/12/23 20:47 Labs: Laboratory Results - last 24 hr 12/12/23 20:47: WBC 11.2 H, RBC 4.93, Hgb 14.4, Hct 42.7, MCV 86.6, MCH 29.2, MCHC 33.7, RDW Std Deviation 39.2, RDW Coeff of Rebecca 12.4, Plt Count 313, MPV 9.6, Immature Gran % (Auto) 0.400, Neut % (Auto) 36.2 L, Lymph % (Auto) 54.4 H, [place] % (Auto) 7.0, Eos % (Auto) 1.6, Baso % (Auto) 0.4, Absolute Neuts (auto) 4.1, Absolute Lymphs (auto) 6.10 H, Nucleated RBC % 0, Differential Comment SEE COMMENT, Platelet Estimate ADEQUATE, RBC Morphology NORM C+C, Anisocytosis RARE, Sodium 140, Potassium 3.4 L, Chloride 106, Carbon Dioxide 28.0, Anion Gap 6, BUN 13, Creatinine 0.76, Estim Creat Clear Calc 109.96, Est GFR (MDRD) Af Amer 106, Est GFR (MDRD) Non-Af 87, BUN/Creatinine Ratio 17.2, Glucose 111 H, Calcium 8.9, Total Bilirubin 0.30, Direct Bilirubin 0.13, AST 37, ALT 48, Alkaline Phosphatase 131 H, Troponin I High Sens < 3 L, Total Protein 7.6, Albumin 3.5, Globulin 4.1 12/12/23 21:02: Urine Color Yellow, Urine Clarity Clear, Urine pH 7.0, Ur Specific [place] 1.005, Urine Protein Negative, Urine Glucose (UA) Normal, Urine Ketones Negative, Urine Occult Blood Negative, Urine Nitrite Negative, Urine Bilirubin Negative, Urine Urobilinogen Normal, Ur Leukocyte Esterase Negative, Urine RBC 0 SEEN, Urine WBC 0 SEEN, Ur Squamous Epith Cells 0-5 SEEN, Urine Bacteria 0 SEEN, Urine Mucus 0 SEEN Imaging Radiology Impression Gallbladder Ultrasound 12/12/23 21:28 IMPRESSION: Cholelithiasis. Positive sonographic Toledo sign may be consistent with acute cholecystitis with no other definitive ultrasound findings. Fatty infiltration liver. Electronically Signed: Blanca Castro MD at 22:19 EDT Reading Location ID and State: [address] [place] [address] Tel , Service support , Assessment & Plan Assessment/Plan (1) Cholecystitis: PLAN: Patient is a 48-year-old female with a number of recent complaints who presents with signs and symptoms largely consistent with a diagnosis of cholecystitis. Her pain is primarily postprandial as per history and her exam is consistent with this diagnosis with a positive Toledo sign. Cholelithiasis is confirmed on ultrasound. However, I am unable to confirm for Mrs. Leon that her back pain is definitely connected to this diagnosis. Further, it is unclear to me how her prior presentations for chest pain and facial droop fit into this present presentation. Based on her reports of multiple negative cardiac and neurologic workups it seems reasonable and safe to proceed for cholecystectomy and hopefully addressing her right upper quadrant abdominal discomfort, but all the while acknowledging that there may and likely is more to her clinical picture than this cholecystitis. I have tried to take time to outline the expectations for this procedure as well as recommended that we on board the hospitalist service for additional evaluation before proceeding to the OR. Patient and her expressed appreciation for this information. Patient will be admitted with IV antibiotic therapy and n.p.o. status. Will tentatively plan to proceed to the OR tomorrow for laparoscopic cholecystectomy with intraoperative cholangiogram. CBC and CMP we ordered for the a.m. (2) Chest pain in adult: PLAN: Patient with multiple presentations for chest pain and extensive cardiac workup that is reportedly all been within normal limits. Patient is morbidly obese and has certain risk factors for cardiovascular disease. Appreciate assistance of hospitalist service to help appropriately read stratify patient ahead of the OR. Charges/Coding Visit Charges Inpatient E&M: 61208 Init Hosp L2
[2023-12-13] VITALS (19 sets, daily range): BP systolic 130–161; BP diastolic 77–98; PULSE 74–102; RESP 11–25; TEMP 36.2–37.3; O2SAT 93–100; BMI 47.8
--- NOTE | 2023-12-13 00:36 | PCM.PN.HOSP ---
Reason for Visit Reason for Visit: Diagnoses Cholecystitis, unspecified (12/12/23) Chest pain, unspecified (12/12/23) Objective Data Objective Data Vital Signs: Vital Signs Temp Pulse Resp BP Pulse Ox O2 Del Method 98 F 81 11 L 133/87 H 96 Room Air 12/13/23 00:10 12/13/23 00:31 12/13/23 00:31 12/13/23 00:31 12/13/23 00:31 12/13/23 00:31 Oxygen Delivery Method Room Air Weight: 257 lb Body Mass Index (BMI) 48.5 Lab / Micro Data 12/12/23 20:47 12/12/23 20:47 Labs: Laboratory Results - last 24 hr 12/12/23 20:47: WBC 11.2 H, RBC 4.93, Hgb 14.4, Hct 42.7, MCV 86.6, MCH 29.2, MCHC 33.7, RDW Std Deviation 39.2, RDW Coeff of Rebecca 12.4, Plt Count 313, MPV 9.6, Immature Gran % (Auto) 0.400, Neut % (Auto) 36.2 L, Lymph % (Auto) 54.4 H, [place] % (Auto) 7.0, Eos % (Auto) 1.6, Baso % (Auto) 0.4, Absolute Neuts (auto) 4.1, Absolute Lymphs (auto) 6.10 H, Nucleated RBC % 0, Differential Comment SEE COMMENT, Platelet Estimate ADEQUATE, RBC Morphology NORM C+C, Anisocytosis RARE, Sodium 140, Potassium 3.4 L, Chloride 106, Carbon Dioxide 28.0, Anion Gap 6, BUN 13, Creatinine 0.76, Estim Creat Clear Calc 109.96, Est GFR (MDRD) Af Amer 106, Est GFR (MDRD) Non-Af 87, BUN/Creatinine Ratio 17.2, Glucose 111 H, Calcium 8.9, Total Bilirubin 0.30, Direct Bilirubin 0.13, AST 37, ALT 48, Alkaline Phosphatase 131 H, Troponin I High Sens < 3 L, Total Protein 7.6, Albumin 3.5, Globulin 4.1 12/12/23 21:02: Urine Color Yellow, Urine Clarity Clear, Urine pH 7.0, Ur Specific [place] 1.005, Urine Protein Negative, Urine Glucose (UA) Normal, Urine Ketones Negative, Urine Occult Blood Negative, Urine Nitrite Negative, Urine Bilirubin Negative, Urine Urobilinogen Normal, Ur Leukocyte Esterase Negative, Urine RBC 0 SEEN, Urine WBC 0 SEEN, Ur Squamous Epith Cells 0-5 SEEN, Urine Bacteria 0 SEEN, Urine Mucus 0 SEEN Radiography Diagnostic Testing: Radiology Impression Gallbladder Ultrasound 12/12/23 21:28 IMPRESSION: Cholelithiasis. Positive sonographic Toledo sign may be consistent with acute cholecystitis with no other definitive ultrasound findings. Fatty infiltration liver. Electronically Signed: Blanca Castro MD at 22:19 EDT ,
--- NOTE | 2023-12-13 01:23 | PCM.PN.HOSP ---
Subjective Subjective 48-year-old female presented to the hospital with right upper quadrant abdominal pain. Workup is indicative of cholecystitis and general surgery has admitted the patient with plan for cholecystectomy in the morning. Medicine was consulted secondary to a recent history of a possible stroke, she was given tenecteplase though the MRI was negative and she relays that the [facility] neurology and cardiology feel that this was likely migraine related versus seizure related. She does have an EEG pending as an outpatient. She is still on a PPI as well as aspirin and Lipitor though she states that she has been told that she can likely discontinue the aspirin and Lipitor. Objective Data Objective Data Vital Signs: Vital Signs Temp Pulse Resp BP Pulse Ox O2 Del Method 98 F 81 11 L 133/87 H 96 Room Air 12/13/23 00:10 12/13/23 00:31 12/13/23 00:31 12/13/23 00:31 12/13/23 00:31 12/13/23 00:31 Oxygen Delivery Method Room Air Weight: 257 lb Body Mass Index (BMI) 48.5 Lab / Micro Data 12/12/23 20:47 12/12/23 20:47 Labs: Laboratory Results - last 24 hr 12/12/23 20:47: WBC 11.2 H, RBC 4.93, Hgb 14.4, Hct 42.7, MCV 86.6, MCH 29.2, MCHC 33.7, RDW Std Deviation 39.2, RDW Coeff of Rebecca 12.4, Plt Count 313, MPV 9.6, Immature Gran % (Auto) 0.400, Neut % (Auto) 36.2 L, Lymph % (Auto) 54.4 H, [place] % (Auto) 7.0, Eos % (Auto) 1.6, Baso % (Auto) 0.4, Absolute Neuts (auto) 4.1, Absolute Lymphs (auto) 6.10 H, Nucleated RBC % 0, Differential Comment SEE COMMENT, Platelet Estimate ADEQUATE, RBC Morphology NORM C+C, Anisocytosis RARE, Sodium 140, Potassium 3.4 L, Chloride 106, Carbon Dioxide 28.0, Anion Gap 6, BUN 13, Creatinine 0.76, Estim Creat Clear Calc 109.96, Est GFR (MDRD) Af Amer 106, Est GFR (MDRD) Non-Af 87, BUN/Creatinine Ratio 17.2, Glucose 111 H, Calcium 8.9, Total Bilirubin 0.30, Direct Bilirubin 0.13, AST 37, ALT 48, Alkaline Phosphatase 131 H, Troponin I High Sens < 3 L, Total Protein 7.6, Albumin 3.5, Globulin 4.1 12/12/23 21:02: Urine Color Yellow, Urine Clarity Clear, Urine pH 7.0, Ur Specific [place] 1.005, Urine Protein Negative, Urine Glucose (UA) Normal, Urine Ketones Negative, Urine Occult Blood Negative, Urine Nitrite Negative, Urine Bilirubin Negative, Urine Urobilinogen Normal, Ur Leukocyte Esterase Negative, Urine RBC 0 SEEN, Urine WBC 0 SEEN, Ur Squamous Epith Cells 0-5 SEEN, Urine Bacteria 0 SEEN, Urine Mucus 0 SEEN Radiography Diagnostic Testing: Radiology Impression Gallbladder Ultrasound 12/12/23 21:28 IMPRESSION: Cholelithiasis. Positive sonographic Toledo sign may be consistent with acute cholecystitis with no other definitive ultrasound findings. Fatty infiltration liver. Electronically Signed: Blanca Castro MD at 22:19 EDT , Physical Exam Narrative General: Alert, Oriented x3, Cooperative, No apparent distress HEENT: Atraumatic, PERRLA, EOMI, Normocephalic Oral: Moist Mucosa Neck: Supple, No JVD Lungs: Diminished, normal air movement, No rhonchi, No wheeze, No rales Cardiovascular: Regular rate, Regular Rhythm, Normal S1, Normal S2, No murmurs Abdomen: Soft, TTP to RUQ, Non-Distended, No Hepato-splenomegaly Extremities: No edema, Capillary Refill Less than 3 Seconds Skin: No rashes, No breakdown Musculoskeletal: No Tenderness to Palpation of Joints or Extremities Neurological: No focal neurological deficits, Motor Exam 5/5 strength throughout, Sensory exam intact to light touch and pain Psych/Mental Status: Normal Affect, Appropriate Assessment & Plan Assessment/Plan (1) Cholecystitis: PLAN: Plan 1. Acute cholecystitis ? Pain management per surgery ? She is likely low risk to proceed with surgery she has had extensive outpatient cardiovascular workup within the last 3 months including stress test and echo. The echo we have here in our system which was normal and she states that her stress test was also normal ? Plan for cholecystectomy in the morning 2. Complex migraine versus stroke ? In September showed tenecteplase with a normal MRI ? She reports that outpatient neurology feels that this could potentially been a migraine, planning for outpatient EEG in January ? Cardiovascular workup with an echo and stress test have also all been normal ? Can resume aspirin and Lipitor when okay with surgery DVT: SCDs Charges/Coding Visit Charges Office Visits / Consults: 14888 OV L3 New 30min
[2023-12-13] MEDS: 0.9% Normal Saline (1000mL) 1,000 ML 125 ML IV ×2 (01:57→07:55)
[2023-12-13] MEDS: Piperacil/Tazobactam 3.375 GM in 0.9% Normal Saline (50mL MB+) 50 ML IV ×4 (02:09→19:57)
[2023-12-13] MEDS: 0.9% Saline Lock 10 ML Syringe IV ×3 (02:20→19:57)
[2023-12-13] MEDS: HYDROmorphone 0.5 MG/0.5 ML SYRINGE IV ×3 (02:21→19:57)
[2023-12-13 02:39] LABS: Lipase 53 U/L (13-75)
[2023-12-13 04:53] LABS: Absolute Lymphocyte Count 2.78 X10^3/uL (0.83-4.51); Absolute Neutrophil Count 7.5 X10^3/uL (2.0-7.7); Basophil# 0.03 X10^3/uL; Basophil% 0.3 % (0-1); Eosinophil# 0.05 X10^3/uL; Eosinophils% 0.5 % (0-5); Hematocrit 40.1 % (37-47); Hemoglobin 13.4 g/dL (12.0-15.0); Lymphocyte # 2.78 X10^3/ul (0.83-4.51); Lymphocyte % 25.2 % (19-41); Mean Corp Hgb Conc 33.4 g/dL (32-36); Mean Corpuscular Hgb 29.3 pg (27.0-32.0); Mean Corpuscular Volume 87.7 fL (81-99); Mean Platelet Vol. 9.6 fl (6.2-12.0); Monocyte# 0.64 X10^3/uL; Monocyte% 5.8 % (0-10); NRBC Flagged by Analyzer 0 % (0-5); Neutrophil # 7.47 X10^3/uL (2.7-7.7); Neutrophil % 67.8 % (47-70); Platelet Count 311 K/mm3 (150-450); RBC Distribution Width CV 12.4 % (11.6-14.6); RBC Distribution Width SD 39.8 fl (35.1-43.9); Red Blood Count 4.57 M/mm3 (4.2-5.4)
[2023-12-13 05:25] LABS: ALB/GLOB Ratio 0.8 RATIO (0.9-2.4); AST(SGOT) 36 U/L (15-37); Alanine Aminotransfer ALT/SGPT 47 U/L (13-56); Albumin, Serum 3.2 g/dL (3.2-5.0); Alkaline Phosphatase 112 U/L (45-117); Anion Gap 5 (5-15); BUN 12 mg/dL (7-18); BUN/Creat Ratio 19.1 RATIO (10-20); Calcium,Total 8.3 mg/dL (8.5-10.1); Chloride 107 mmol/L (98-107); Creatinine, Serum 0.63 mg/dL (0.55-1.02); EST Glomerular Filtration Rate 109 mL/min (>60); Est Glom Filt Rate - Afr Amer 131 mL/min (>60); Estimated Creatinine Clearance 132.81 ml/min; Globulin 3.9 g/dL (2.2-4.2); Glucose 111 mg/dL (74-106); Magnesium 2.2 mg/dL (1.6-2.6); Phosphorus 4.2 mg/dL (2.5-4.9); Potassium 3.9 mmol/L (3.5-5.1); Protein, Total 7.1 g/dL (6.4-8.2); Sodium Level 139 mmol/L (136-145)
[2023-12-13] MEDS: Ondansetron 4 MG/2 ML Vial IV ×2 (07:53→20:02)
[2023-12-13] MEDS: Pantoprazole Sodium 40 MG in 0.9% Normal Saline (100mL MB+) 100 ML 330 MG IV (08:50)
[2023-12-13] MEDS: Lactated Ringers 1,000 ML 15 ML IV (11:26)
--- NOTE | 2023-12-13 12:30 | GALL_PTH ---
PATIENT: HECTOR LEON LOC: ICU U#:[id number] AGE/SX: 48/F ROOM: [place] [address] RE12/12/[address]: Dr. Marin He MD : 1975 BED: 1 DIS: 12/14/2023 SPEC #: [id number] RECD: 12/14/23 05:49 STATUS: ASHLEY REQ #: [id number] RIKI: 12/13/23 12:[address]: Marin He DEPT: SURGICAL PATHOLOGY RECD BY: Valerie England ENTERED: 12/14/23 08:58 SP TYPE: GALLBLADDE OT DR: Dr. Tl Tomas, DO MD Dr. Nafisa Cleary MD Dr. Achintya Singh, MD Dr. Autumn L White, MD Dr. Christophe Bursley, MD Dr. David de Lorenzo, DO MD Maverick Yan MD Dr. Eric Jopperi, MD Dr. Ramón Lopez Dr., MD Dr. Kathryn Lee, DO Dr. Pierre Ruth, DO MD Dr. Ricardo Taylor MD Dr. Prakash Chand, MD Dr. Paul Nielsen, MD Dr. Paige Pierce, MD Dr. Ryan Burkholder, MD Jessica Franklin, NP-C John P Duarte, PA Tissues: A - Gallbladder, NOS B - Liver, NOS Procedures: PSA (add) Trichrome (control) Surgery Specimen Level III Surgery Specimen Level V Retic (control) Iron Stain (control) HEADER OPERATION: Laparoscopic, Cholecystectomy with intraoperative cholangiog PRE-OP DIAGNOSIS: Cholecystitis TISSUE SUBMITTED: A- Gallbladder, B- Liver biopsy MICROSCOPIC DIAGNOSIS A. Gallbladder, cholecystectomy: Acute and chronic cholecystitis, cholelithiasis and cholesterolosis. B. Liver, core biopsy; Liver parenchymal tissue with focal minimal macrovesicular steatosis and mild portal chronic inflammation. See microscopic description and comment. SJ/mr 12/15/2023 COMMENT Correlation with clinical, laboratory, radiologic findings and appropriate follow up are necessary. MICROSCOPIC DESCRIPTION Slides are reviewed. Specimen shows liver parenchymal tissue with preserved lobular architecture. Hepatocytes show focal minimal macrovesicular steatosis Significant lobular information is not seen. Portal areas shows mild chronic inflammation, predominantly consists of lymphocytes. Iron stain show absent iron. Reticulin stain highlights the preserved lobular architecture. Trichrome stain does not show increased portal or periportal fibrosis. PAS stains with and without diastase do not show any abnormal condition of protein. All stains are performed with appropriate matched controls. GROSS DESCRIPTION A. Received is one container labeled with the patient's name and designated gallbladder. The specimen consists of a gallbladder measuring 7.0 cm in length and up to 3.5 cm in diameter. The external surface is pink-humphrey, smooth and glistening for the most part. Focally it is granular, hemorrhagic and contains cautery artifact. The gallbladder contains small amount of green-yellow mucoid bile and three ovoid irregular hlimeqviz-obvuy-auzal stones measuring in aggregate 3.0 x 3.0 x 2.0 cm and 1.0 to 2.8 cm in greatest dimension. The mucosa also shows several yellowish streaks consistent with cholesterolosis. The mucosa is bile-stained and without any mass lesions. The gallbladder wall measures up to 0.5 cm in thickness. Inspector Penetrant sections from the gallbladder and the cystic duct are submitted in one cassette. B. Received in fixative is one container labeled with the patient's name and designated Liver biopsy. The specimen consists of one irregular fragment of light humphrey soft tissue that measuring 1.0cm in length and 0.1 cm in diameter. The specimen is totally submitted in one cassette. Jo Ann 12/14/23 TC:2 CPT:14429,96728, 99815 x5
--- NOTE | 2023-12-13 12:57 | CHAPLAIN ---
Type of Pastoral Visit ___ Initial Visit ___ Follow-up Visit ___ On-call Visit ___ General Patient Visit ___ Spiritual Assessment ___ Family Conference ___ Bereavement ___ Rapid Response ___ Code Blue ___ Other (describe below) Pastoral Care Referral From ___ Patient ___ Family ___ Nurse ___ Physician ___ Marketing Senior Recruiter ___ Wellness Manager ___ Other (describe below) Sacrament/Intervention ___ Active listening ___ Anointing ___ Advent ___ Bereavement ___ Communion ___ Cayla exploration ___ ___ Life review ___ Prayer ___ Reconciliation ___ Sacrament of Sick ___ Supportive presence ___ Wedding ___ Other (describe below) Pastoral Comments patient and bed are out of the room
--- NOTE | 2023-12-13 13:14 | RAD_ITS ---
STUDY: INTRAOPERATIVE CHOLANGIOGRAM REASON FOR EXAM: Female, 48 years old. PAIN FLUOROSCOPY TIME (if supplied): ( 67.2 seconds ) minutes/seconds. 41.03 mGy TECHNIQUE: Intraoperative cholangiogram was performed by the surgeon. Imaging was provided. COMPARISON: None. FINDINGS: Intra and extra hepatic biliary ducts are unremarkable. There is free flow of contrast into the duodenum. RAD/Cholangiogram/ O R,Initial IMPRESSION: Unremarkable intraoperative cholangiogram. Electronically Signed: Maury Flanagan MD at 15:32 EDT ,
[2023-12-13] MEDS: Bupiv/Epi 0.25% 30 ML Vial (16:20)
--- NOTE | 2023-12-13 16:29 | OP.PCM_ITS ---
Problems Associated Problem List Diagnoses (1) Cholecystitis: Report of Operation Date of Procedure: 12/13/23 Pre-Operative Diagnosis: Cholecystitis Post-Operative Diagnosis: Acute on chronic cholecystitis Surgery/Procedure Performed:: 1. Laparoscopic cholecystectomy with intraoperative cholangiogram 2. Core needle liver biopsy Surgeon: Marin He telegraph printer mechanic: Jerzy Zhou telegraph printer mechanic: Carlee Tsang Type of Anesthesia: General/Supplemental Anesthesiologist: Gui Knox Specimen's removed: Gallbladder Estimated Blood Loss (mL): 30 Description of Procedure: After proper identification in the preoperative holding area the patient was brought to the operating room where she was positioned supine on the operating room table. Preoperatively SCDs were placed and antibiotics were redosed. General anesthesia was then induced. Patient's abdomen was prepped and draped in usual sterile fashion. A formal timeout was conducted to confirm both patient and the procedure. Procedure was begun with a supraumbilical incision which was extended deeply down to the level of the fascia. The fascia was elevated and incised, as well as the peritoneum. A finger sweep was performed to ensure there were no underlying adhesions and a 12 mm balloon trocar was inserted. Pneumoperitoneum was established at 15 mmHg. Three additional trocars (all 5 mm) were placed in the epigastrium and in the right upper quadran t. Inspection of the peritoneum revealed no inadvertent injury to the viscera below. The gallbladder was visualized with evidence of chronic inflammation. The gallbladder fundus was then grasped and elevated cephalad. This proved exceptionally difficult given the large mass and heavy weight of the patient's liver. Using careful dissection the peritoneum was opened and the structures of the hepatocystic triangle were delineated. It became clear that the patient's infundibular portion of the gallbladder was doubled back on a very foreshortened cystic duct. It was also noted that in dissecting patient's cystic duct identified a second, larger duct more posteriorly that I concluded represented the common hepatic duct. Extra care was taken to avoid injury to this structure. Once the critical view of safety was obtained, the cystic duct was singly clipped and partially divided with a ductotomy. The proximal duct was milked of debris until there was backflow of bile. A cholangiocatheter was introduced to the peritoneal cavity via a 14-gauge angiocatheter placed through the right upper quadrant and was fed into the proximal segment of the cystic duct and clipped into place. Under fluoroscopy a cholangiogram that initially showed only opacification of the common hepatic and proper hepatic ducts with an abrupt cut off. Notably no cystic duct was seen either. An additional cine series was obtained with patient placed in steeper reverse Trendelenburg positioning to try to use the influence of gravity to visualize the common bile duct yet the result was the same. In an effort to troubleshoot I reexamined our set up and once again confirmed that I had cannulated the cystic duct. I also requested the assistance of my partner, Dr. Garcia to the OR and he graciously obliged. Upon arrival he confirmed the anatomy and jointly we decided to try to carefully withdraw some of the catheter in the cystic duct to see if this would allow for antegrade flow into the common bile duct. Once this was done we obtained an image showing an exceptionally short cystic duct flowing into a common bile duct with unobstructed antegrade flow of contrast into the duodenum. There was also retrograde flow through the common hepatic duct into the right and left hepatic ducts. Satisfied with this result, the cholangiocatheter was withdrawn and the proximal cystic duct was sealed with Hem-o-syeda clips and the cystic duct was completely transected. The same process was used for the cystic artery. As I dissected posteriorly towards the cystic plate identified additional adhesions between the gallbladder and the area of the common hepatic duct. Thus tedious dissection followed and I elected to clip to tenacious structures that appeared to be offshoots of the main cystic artery. The gallbladder was then removed from the gallbladder fossa with the use of electrocautery proceeding in a dome down approach as well as a traditional infundibulum?up approach. Selective danish ctrocautery was used to obtain hemostasis in the gallbladder fossa. The gallbladder was placed in an Endo Catch bag and removed from the peritoneum. Morison's pouch was irrigated and the effluent was suctioned free of the peritoneum. Hemostasis was again confirmed on the gallbladder fossa. Given the patient's thicker abdominal wall elected to close the supraumbilical fascial incision with a #1 PDS in a tzzzbg-ag-eecxm fashion using a Yuriy Ramires suture passer and laparoscopic visualization. The pneumoperitoneum was released, her sutures were tied, and additional local anesthetic was injected into this fascial layer. A total of 30 mL of anesthetic was injected at the port sites for postoperative pain control. The skin of each port site was then closed in subcuticular fashion using 4-0 Monocryl. Steri-Strips and bandages were applied as dressings. Patient tolerated the procedure well without any apparent complications. On emergence from their anesthetic the patient was take n to PACU for ongoing recovery. Complications None Admit VTE Documentation VTE Mechan Device Prophylaxis: SCD's Procedures Digestive 40xxx-49xxx: 87441 Laparo cholecystectomy/graph
[2023-12-13] MEDS: oxyCODONE 5 MG Tablet PO ×2 (18:22→23:57)
[2023-12-13] MEDS: Acetaminophen 500 MG Tablet PO (23:56)
[2023-12-14 02:00] VITALS: BP 119/69; PULSE 101; RESP 14; TEMP 37.1; O2SAT 93
[2023-12-14 03:50] LABS: Hematocrit 39.1 % (37-47); Hemoglobin 13.2 g/dL (12.0-15.0); Mean Corp Hgb Conc 33.8 g/dL (32-36); Mean Corpuscular Hgb 29.9 pg (27.0-32.0); Mean Corpuscular Volume 88.5 fL (81-99); Mean Platelet Vol. 9.8 fl (6.2-12.0); Platelet Count 310 K/mm3 (150-450); RBC Distribution Width CV 12.6 % (11.6-14.6); RBC Distribution Width SD 40.9 fl (35.1-43.9); Red Blood Count 4.42 M/mm3 (4.2-5.4); White Blood Count 14.3 K/mm3 (4.4-11.0)
[2023-12-14 04:08] LABS: ALB/GLOB Ratio 0.7 RATIO (0.9-2.4); AST(SGOT) 149 U/L (15-37); Alanine Aminotransfer ALT/SGPT 189 U/L (13-56); Alkaline Phosphatase 111 U/L (45-117); Anion Gap 4 (5-15); BUN 10 mg/dL (7-18); BUN/Creat Ratio 11.6 RATIO (10-20); Calcium,Total 8.6 mg/dL (8.5-10.1); Chloride 107 mmol/L (98-107); Creatinine, Serum 0.86 mg/dL (0.55-1.02); EST Glomerular Filtration Rate 75 mL/min (>60); Est Glom Filt Rate - Afr Amer 91 mL/min (>60); Estimated Creatinine Clearance 97.29 ml/min; Globulin 4.3 g/dL (2.2-4.2); Glucose 134 mg/dL (74-106); Potassium 4.4 mmol/L (3.5-5.1); Protein, Total 7.3 g/dL (6.4-8.2); Sodium Level 138 mmol/L (136-145)
[2023-12-14] MEDS: Acetaminophen 500 MG Tablet PO ×2 (06:08→12:31)
[2023-12-14] MEDS: 0.9% Saline Lock 10 ML Syringe IV (06:09)
[2023-12-14] MEDS: oxyCODONE 5 MG Tablet PO ×2 (06:09→12:33)
[2023-12-14] MEDS: Piperacil/Tazobactam 3.375 GM in 0.9% Normal Saline (50mL MB+) 50 ML IV (06:10)
[2023-12-14 08:00] VITALS: BP 132/87; PULSE 92; RESP 14; TEMP 37.1; O2SAT 94
--- NOTE | 2023-12-14 08:19 | PN.SURG_ITS ---
Subjective Subjective Patient is a 48 y/o F I am following in conjunction with Dr. He. Patient was evaluated resting comfortably in the chair. She notes incisional soreness/discomfort. She denies nausea, vomiting with current diet. She denies fever. She is urinating well. Objective Data Objective Data Vital Signs: Vital Signs Temp Pulse Resp BP Pulse Ox O2 Del Method O2 Flow Rate 98.7 F 101 H 14 119/69 93 Room Air 2 12/14/23 02:00 12/14/23 02:00 12/14/23 02:00 12/14/23 02:00 12/14/23 02:00 12/14/23 02:00 12/13/23 17:30 Oxygen Flow Rate (L/min) 2 Oxygen Delivery Method Room Air Weight: 257 lb 7.999 oz Body Mass Index (BMI) 47.8 Intake & Output: Intake and Output for Last 24 Hours 12/12/23 12/13/23 12/14/23 23:59 23:59 23:59 Intake Total 2654.33 / 2654.33 50 / 50 Balance 2654.33 / 2654.33 50 / 50 Lab / Micro Data 12/14/23 03:45 12/14/23 03:45 Labs: Laboratory Results - last 24 hr 12/14/23 03:45: WBC 14.3 H, RBC 4.42, Hgb 13.2, Hct 39.1, MCV 88.5, MCH 29.9, MCHC 33.8, RDW Std Deviation 40.9, RDW Coeff of Rebecca 12.6, Plt Count 310, MPV 9.8, Sodium 138, Potassium 4.4, Chloride 107, Carbon Dioxide 27.0, Anion Gap 4 L , BUN 10, Creatinine 0.86, Estim Creat Clear Calc 97.29, Est GFR (MDRD) Af Amer 91, Est GFR (MDRD) Non-Af 75, BUN/Creatinine Ratio 11.6, Glucose 134 H, Calcium 8.6, Total Bilirubin 0.70, AST 149 H, ALT 189 H, Alkaline Phosphatase 111, Total Protein 7.3, Albumin 3.0 L, Globulin 4.3 H, Albumin/Globulin Ratio 0.7 L Radiography Diagnostic Testing: Radiology Impression Cholangiogram 12/13/23 13:14 IMPRESSION: Unremarkable intraoperative cholangiogram. Electronically Signed: Maury Flanagan MD at 15:32 EDT , Physical Exam GI GI Narrative: Abdomen- soft, tenderness at the incision sites. Incisions c/d/i. No erythema or infection noted. Hypoactive bowel sounds. Assessment & Plan Assessment/Plan (1) Cholecystitis: PLAN: I have evaluated this patient in conjunction with Dr. He. He has independently evaluated this patient. Patient progressing well after surgery Ready for discharge Plan to stop antibiotics Increase diet to full liquids Charges/Coding Visit Charges Inpatient E&M: 60632 Subs Hosp L1 (no charge; post-op)
[2023-12-14] MEDS: Polyethylene Glycol 3350 17 GM PACKET PO (08:22)
[2023-12-14] MEDS: Pantoprazole Sodium 40 MG in 0.9% Normal Saline (100mL MB+) 100 ML 330 MG IV (08:22)
--- NOTE | 2023-12-14 08:45 | DS.PCM_ITS ---
Providers Date of Admission: 12/12/23 Primary Care Physician: Dr. Mike Mercado MD Consultations 12/12/23 23:53 Consult: Hospitalist Routine Consulting Provider: Sury Lowery Reason for Consult: Patient with recent neuro and CV symptoms please help risk stratify for OR EMERGENT Consult: No MD Notified: Yes Date Notified: 12/12/23 Time Notified: 23:55 Method of Notification: Verbal Reason For Visit: ACUTE CHOLECYSTITIS Diagnosis Discharge Diagnosis (1) Cholecystitis: Status: Acute Code(s): K81.9 - Cholecystitis, unspecified Plan: I have evaluated this patient in conjunction with Dr. He. He has independently evaluated this patient. Patient progressing well after surgery Ready for discharge Plan to stop antibiotics Increase diet to full liquids Medications at Discharge Home Medications aspirin 81 mg chewable tablet 1 tab PO DAILY 11/01/23 atorvastatin 80 mg tablet 80 mg PO QHS 11/01/23 lansoprazole 30 mg capsule,delayed release 30 mg PO DAILY 12/12/23 acetaminophen 500 mg tablet 500 mg PO Q6H PRN PRN Pain Score 1-10 #0 tabs 12/14/23 oxycodone 5 mg tablet 5 mg PO Q6H PRN PRN Pain Score 6-10 3 days #10 tabs 12/14/23 Hospital Course Operations cholecystecomy (with IOC) and - Summary of Care Provided Minutes Spent on Discharge: 30 Hospital Course: Patient is a 48 y/o F who presented with epigastric pain/discomfort. RUQ u/s was obtained demonstrating cholelithiasis. Positive sonographic Toledo's sign consistent with acute cholecystitis. Fatty infiltration of the liver. Hospitalist was also consulted to assist with medical management. Dr. He performed a laparoscopic cholecystectomy with intraoperative cholangiogram and liver core biopsy on 12/13/23. Patient tolerated the procedure well. Patient had an uneventful hospitalization. Upon discharge, patient notes incisional soreness/discomfort. She denies nausea, vomiting, fever. She is tolerating her current diet. She is passing flatus. She is to follow-up with Dr. He post- operatively in 10-14 days. Weight / BMI Weight Weight: 257 lb 7.999 oz Body Mass Index (BMI) 47.8 ABG / Lab / Microbiology Data 12/14/23 03:45 12/14/23 03:45 Laboratory: Laboratory Results - last 24 hr 12/14/23 03:45: WBC 14.3 H, RBC 4.42, Hgb 13.2, Hct 39.1, MCV 88.5, MCH 29.9, MCHC 33.8, RDW Std Deviation 40.9, RDW Coeff of Rebecca 12.6, Plt Count 310, MPV 9.8, Sodium 138, Potassium 4.4, Chloride 107, Carbon Dioxide 27.0, Anion Gap 4 L , BUN 10, Creatinine 0.86, Estim Creat Clear Calc 97.29, Est GFR (MDRD) Af Amer 91, Est GFR (MDRD) Non-Af 75, BUN/Creatinine Ratio 11.6, Glucose 134 H, Calcium 8.6, Total Bilirubin 0.70, AST 149 H, ALT 189 H, Alkaline Phosphatase 111, Total Protein 7.3, Albumin 3.0 L, Globulin 4.3 H, Albumin/Globulin Ratio 0.7 L Radiography Diagnostic Testing: Radiology Impression Cholangiogram 12/13/23 13:14 IMPRESSION: Unremarkable intraoperative cholangiogram. Electronically Signed: Maury Flanagan MD at 15:32 EDT , D/C Instructions Discharge Diet: Low fat / Low cholesterol Discharge Activity: May Not Drive (while taking narcotic pain medication) and May Shower (1 day) May shower in (days): 1 Lifting Restrictions: No lifting greater than 15 pounds for 3 weeks Call your doctor if your incision/area has: Continuous Slow Oozing, Sudden Increased Bleeding, Increased Pain/ Swelling, Increased Redness, Foul Smelling Discharge and Swelling at the incision site Call your doctor if you observe: Fever of 101 or Higher Suture Line Care: Avoid Pulling/Pushing and Avoid Pinching/Bending Remove Dressing in: 2 days Cleanse incision/area with: Soap & Water Please Follow Up With: Marin He MD When: Please contact our office to schedule an appointment 10-14 days from your surgery. Please call at [phone], option #2 to schedule. Meaningful Use Info Meaningful Use Diagnoses (Choose all that apply): None applicable Discharge Plan Admission Admit Date/Time: 12/12/23 23:53 Primary Reason for Your Visit: Acute cholecystitis; fatty liver Attending Provider: Marin He Primary Care Provider: Mike Mercado Consulting Providers: Tl Tomas; Nafisa Dawkins; Nafisa Martinez; Earnestine Cruz; Ioana Griffiths; Javier Ventura; Javier Lewis; Maverick Miller; Erickson Kramer; Maryan Gamez; Ramón Cortez; Delaney Garcia; Pierre Ruth; Leilani Reece; Ricardo Hassan; Sagar Ramirez; Nilo Siddiqui; Jeanie Hallman; Maxwell Dennis; Lisy Guevara NP; Rich Cunningham Instructions Additional Instructions / Restrictions: Cholecystectomy Diet ? Start light with soups and soft bland foods. You may advance diet as tolerated. Recommend a low fat diet. Activity ? You may drive in 3-5 days but not while taking narcotic pain medication. ? I encourage walking. You may go up steps, one at a time. ? Do not swim or use hot tubs for 2 weeks. ? For comfort, you may use warm compresses or ice as needed for 15-20 minutes at a time. Lifting ? You may lift up to 15 pounds for 3 weeks. Dressings/Incision ? You may shower OVER your plastic dressings ? Do NOT tub bathe for 1 week ? Leave plastic dressings on for 2 days. ? When plastic dressings are removed, you will find steri strips. It is okay to continue showering with them in place, pat them dry. ? You may remove steri-strips after 1 week. We recommend getting them soaking wet for easier removal. Medications ? Anesthesia used during surgery and pain medications may cause constipation. I recommend initiating on the day of surgery a fiber supplement like, Metamucil, Citrucel, FiberCon, Benefiber, or a generic form of these medications. 1 heaping tablespoon in water daily. You may continue to utilize any bowel regimen or oral laxatives that you routinely take. You may also take 1 capful of Miralax daily if you become constipated. ? As long as you are not intolerant to Tylenol, acetaminophen, ibuprofen, Motrin, Advil, Aleve, or similar medications, I would recommend transitioning to these tujv-gft-tlcnsrw medicines as soon as possible instead of continued use of narcotic pain medication. Follow up ? You should call [facility] soon after surgery, at [phone] option 1 to make a follow up appointment for 10-14 days after your surgery. Discharge Orders/Prescriptions Prescriptions: New oxycodone 5 mg Tablet 5 mg PO Q6H PRN PRN (Reason: Pain Score 6-10) 3 Days Qty: 10 0RF acetaminophen 500 mg Tablet 500 mg PO Q6H PRN PRN (Reason: Pain Score 1-10) Qty: 0 0RF Continued lansoprazole 30 mg capsule,delayed release(DR/EC) 30 mg PO DAILY aspirin 81 mg tablet,chewable 1 tab PO DAILY Patient Comments: chew and swallow 1 tablet by mouth once daily for 30 DAYS atorvastatin 80 mg tablet 80 mg PO QHS Patient Comments: take 1 tablet by mouth at bedtime for 30 DAYS Referrals / Follow Up: Mike Mercado MD [Primary Care Provider] - Marin He MD [Med Staff - Active Staff] - (Follow-up in 10-14 days) Disposition Disposition (needs filled in before D/C Order can be placed): Home, Self Care Charges/Coding Visit Charges Inpatient E&M: 51922 Disch Hosp
--- NOTE | 2023-12-14 10:17 | PCM.PN.HOSP ---
Reason for Visit Reason for Visit: Diagnoses Cholecystitis, unspecified (12/12/23) Chest pain, unspecified (12/12/23) Subjective Subjective No acute events overnight. Patient seen at bedside this morning. Patient was sitting up fairly comfortably in bedside chair, conversing normally, in no acute distress. She did report feeling distended in her abdomen with mild abdominal pain this morning. She had not passed gas or had a bowel movement yet since her lap td yesterday. She denied any pain at her incision sites. She denied any fevers or chills. She was looking forward to trying a liquid diet and had just taken a stool softener to try to get her bowels moving. She was hopeful that she will be able to go home later this afternoon. No other acute concerns. Objective Data Objective Data Vital Signs: Vital Signs Temp Pulse Resp BP Pulse Ox O2 Del Method O2 Flow Rate 98.8 F 92 14 132/87 H 94 Room Air 2 12/14/23 08:00 12/14/23 08:00 12/14/23 08:00 12/14/23 08:00 12/14/23 08:00 12/14/23 08:00 12/13/23 17:30 Oxygen Flow Rate (L/min) 2 Oxygen Delivery Method Room Air Weight: 116.8 kg Body Mass Index (BMI) 47.8 Intake & Output: Intake and Output for Last 24 Hours 12/12/23 12/13/23 12/14/23 23:59 23:59 23:59 Intake Total 2654.33 / 2654.33 160 / 160 Balance 2654.33 / 2654.33 160 / 160 Lab / Micro Data 12/14/23 03:45 12/14/23 03:45 Labs: Laboratory Results - last 24 hr 12/14/23 03:45: WBC 14.3 H, RBC 4.42, Hgb 13.2, Hct 39.1, MCV 88.5, MCH 29.9, MCHC 33.8, RDW Std Deviation 40.9, RDW Coeff of Rebecca 12.6, Plt Count 310, MPV 9.8, Sodium 138, Potassium 4.4, Chloride 107, Carbon Dioxide 27.0, Anion Gap 4 L, BUN 10, Creatinine 0.86, Estim Creat Clear Calc 97.29, Est GFR (MDRD) Af Amer 91, Est GFR (MDRD) Non-Af 75, BUN/Creatinine Ratio 11.6, Glucose 134 H, Calcium 8.6, Total Bilirubin 0.70, AST 149 H, ALT 189 H, Alkaline Phosphatase 111, Total Protein 7.3, Albumin 3.0 L, Globulin 4.3 H, Albumin/Globulin Ratio 0.7 L Radiography Diagnostic Testing: Radiology Impression Cholangiogram 12/13/23 13:14 IMPRESSION: Unremarkable intraoperative cholangiogram. Electronically Signed: Maury Flanagan MD at 15:32 EDT , Physical Exam Const alert, oriented x3 and no apparent distress Constitutional Narrative: Morbidly obese. General Appearance: cooperative and comfortable HEENT normocephalic, head/scalp atraumatic, hearing grossly normal bilaterally, nasal mucous membranes and turbinates normal and moist oral mucous membranes Eyes PERRL, EOMs intact bilaterally and conjunctivae normal Neck full ROM Chest inspection of chest normal Resp normal respiratory effort, normal air movement, no use of accessory muscles and clear to auscultation bilaterally Cardio regular rate, regular rhythm, no murmurs and peripheral pulses 2+ throughout GI GI Narrative: Mild abdominal distention noted. Abdomen otherwise soft and nontender to palpation. Incision sites were covered, dressings clean and dry. Back/Spine normal ROM Extremity normal to inspection, full ROM and no pedal edema Skin no rashes or lesions noted Neuro no focal motor deficits and no sensory deficits noted Psych mental status grossly normal Assessment & Plan Assessment/Plan (1) Cholecystitis: PLAN: Plan Patient is a 48-year-old female who presented to [facility] ED on 12/12/2023 with chest/epigastric pain and nausea. Presentation was consistent with acute cholecystitis, admitted to the general surgery service. Medicine consulted for assistance with medical management. 1. Acute cholecystitis ? General surgery primary. Gallbladder ultrasound on admit showed cholelithiasis, positive sonographic [place] sign, fatty infiltration of liver. S/p laparoscopic cholecystectomy with intraoperative cholangiogram and core needle liver biopsy with Dr. He on 12/12. Patient tolerated procedure well, no significant intraoperative complications. Advancing diet per surgery recs. On low-dose oxycodone and hydromorphone as needed for pain control, along with bowel regimen. Started on IV Zosyn on admission, discontinued on morning of 12/13. Likely okay for discharge home today or tomorrow. 2. Recent history of complex migraine versus stroke ? Was hospitalized at [facility] from 10/21-10/23/2023 for concern for stroke. Had NIH score of 2 on admission, was given tenecteplase on admit. Neurology followed, imaging workup was negative, suspected symptoms may have been more consistent with complex migraine as opposed to stroke. Was started on aspirin and statin during that hospitalization given concern for stroke, but note was made that neither aspirin nor statin were required on discharge. However, patient saw outpatient neurology who recommended that she continue aspirin and high-dose statin at home, as she notably did have elevated lipids on lipid profile. These were held on admission. Likely okay to restart on 12/14 if okay with surgery. Planning for outpatient EEG in January per outpatient neurology. 3. Elevated LFTs ? LFTs normal on admission, worsened to AST 149 and ALT 189 after lap td. Presumed secondary to procedure. Trend LFTs to ensure return to baseline. Notably, bilirubin normal. Okay to resume statin from a medicine standpoint. 4. Morbid obesity ? BMI 47 on admit. Encouraged lifestyle modifications. Complicates hospital course, care and prognosis. Total clinical time spent by myself addressing the patient's medical issues, reviewing all the data, and collaborating with patient's care team: 25 minutes. Charges/Coding Visit Charges Inpatient E&M: 01133 [facility] L1
--- NOTE | 2023-12-14 14:14 | CASEMGMT ---
MELANIA DANGELO NOTE: RN CM to room. Pt resting in bed. Family @ bedside. Pt denies having any discharge planning needs/concerns. She would like to talk w/a quality inspector. Nurse made aware. Abiola BOSWELL RN CM
[2023-12-14 15:00] VITALS: BP 137/72; PULSE 90; RESP 14; TEMP 36.7; O2SAT 96
== END 2023-12-14 18:10 | disposition home or self-care (01) ==
LOC: ED 21:02 → ICU 12-13 00:39
PROVIDERS: Hospitalist; Admitting Provider Surgery; Emergency Provider Student in an Organized Health Care Education/Training Program; PCP Family Medicine; Visit Provider Surgery
PROC: (CPT 47610; principal; 2023-12-13 12:10)
DX: K80.12 Calculus of gallbladder with acute and chronic cholecystitis without obstruction (principal); E66.01 Morbid (severe) obesity due to excess calories; Z68.42 Body mass index [BMI] 45.0-49.9, adult; Z79.82 Long term (current) use of aspirin; K76.0 Fatty (change of) liver, not elsewhere classified; K21.9 Gastro-esophageal reflux disease without esophagitis; E78.5 Hyperlipidemia, unspecified; M79.7 Fibromyalgia; Z79.899 Other long term (current) drug therapy; R07.89 Other chest pain
CPT/HCPCS: 47563; 00790; 47001; 74300; 76000; 76705; 80048; 80053; 80076; 81001; 83690; 83735; 84100; 84484; 85025; 85027; 88304; 88307; 88341; 94668; 96365; 96366; 96368; 96375; 96376; 99221; 99284; J7030; J7120; A4216; G0378; J2405

== ENCOUNTER → 2023-12-21 | Outpatient (CLI) | payer OTHER, SELFPAY ==
[2023-12-21 10:31] LABS: Red Blood Cells-Urine 0 SEEN /hpf (0-5); White Blood Cells 0 SEEN /hpf (0-5)
[2023-12-21 10:49] LABS: Color, Urine Yellow (Yellow); Glucose, Dipstick Normal (Normal); Ketone-Dipstick Negative (Negative); Leukocyte Esterase-Dipstick Negative /ul (Negative); Nitrite-Dipstick Negative (Negative); Occult Blood-Urine Negative /ul (Negative); Protein-Dipstick 30 mg/dl (Negative); Urine Bilirubin Dipstick Negative (Negative); Urine Clarity Sl. Cloudy (Clear); Urine Urobilinogen Normal (Normal)
[2023-12-21 10:56] LABS: Bacteria 1+ /hpf (None Seen); Mucous, Urine 1+ /hpf (<or=2+); Squamous Epithelial Cells - UA 0-5 SEEN /hpf (5-10)
== END | disposition home or self-care (01) ==
LOC: PAVLAB 10:22
PROVIDERS: PCP Family Medicine; Referring Provider Physician Assistant; Visit Provider Physician Assistant
DX: R30.0 Dysuria (principal)
CPT/HCPCS: 81001

== ENCOUNTER → 2024-01-10 | Outpatient (CLI) | payer OTHER, SELFPAY ==
[2024-01-10 12:46] LABS: Absolute Lymphocyte Count 2.16 X10^3/uL (0.83-4.51); Absolute Neutrophil Count 2.1 X10^3/uL (2.0-7.7); Basophil# 0.02 X10^3/uL; Basophil% 0.4 % (0-1); Eosinophil# 0.07 X10^3/uL; Eosinophils% 1.5 % (0-5); Hematocrit 42.5 % (37-47); Hemoglobin 13.7 g/dL (12.0-15.0); Lymphocyte # 2.16 X10^3/ul (0.83-4.51); Lymphocyte % 44.9 % (19-41); Mean Corp Hgb Conc 32.2 g/dL (32-36); Mean Corpuscular Hgb 29.5 pg (27.0-32.0); Mean Corpuscular Volume 91.4 fL (81-99); Mean Platelet Vol. 10.4 fl (6.2-12.0); Monocyte# 0.45 X10^3/uL; Monocyte% 9.4 % (0-10); NRBC Flagged by Analyzer 0 % (0-5); Neutrophil % 43.6 % (47-70); Platelet Count 272 K/mm3 (150-450); RBC Distribution Width CV 12.7 % (11.6-14.6); RBC Distribution Width SD 42.4 fl (35.1-43.9); Red Blood Count 4.65 M/mm3 (4.2-5.4); White Blood Count 4.8 K/mm3 (4.4-11.0)
[2024-01-10 13:03] LABS: Vitamin D,25 Hydroxy 49.3 ng/mL
[2024-01-10 13:07] LABS: ALB/GLOB Ratio 0.9 RATIO (0.9-2.4); AST(SGOT) 47 U/L (15-37); Alanine Aminotransfer ALT/SGPT 71 U/L (13-56); Albumin, Serum 3.4 g/dL (3.2-5.0); Alkaline Phosphatase 97 U/L (45-117); Anion Gap 6 (5-15); BUN 18 mg/dL (7-18); Calcium,Total 9.3 mg/dL (8.5-10.1); Chloride 106 mmol/L (98-107); Creatinine, Serum 0.72 mg/dL (0.55-1.02); EST Glomerular Filtration Rate 92 mL/min (>60); Est Glom Filt Rate - Afr Amer 112 mL/min (>60); Globulin 3.9 g/dL (2.2-4.2); Glucose 97 mg/dL (74-106); Potassium 4.1 mmol/L (3.5-5.1); Protein, Total 7.3 g/dL (6.4-8.2); Sodium Level 139 mmol/L (136-145)
== END | disposition home or self-care (01) ==
LOC: BIMLAB 08:59
PROVIDERS: PCP Internal Medicine; Visit Provider Internal Medicine
DX: F32.1 Major depressive disorder, single episode, moderate (principal); F41.9 Anxiety disorder, unspecified; E55.9 Vitamin D deficiency, unspecified
CPT/HCPCS: 36415; 80053; 82306; 85025

== ENCOUNTER → 2024-09-03 | Outpatient (CLI) | payer OTHER, SELFPAY ==
[2024-09-03 12:27] LABS: Absolute Lymphocyte Count 1.92 X10^3/uL (0.83-4.51); Absolute Neutrophil Count 3.2 X10^3/uL (2.0-7.7); Basophil# 0.03 X10^3/uL; Basophil% 0.5 % (0-1); Eosinophil# 0.03 X10^3/uL; Eosinophils% 0.5 % (0-5); Hematocrit 44.7 % (37-47); Lymphocyte # 1.92 X10^3/ul (0.83-4.51); Lymphocyte % 33.9 % (19-41); Mean Corp Hgb Conc 33.6 g/dL (32-36); Mean Corpuscular Hgb 29.9 pg (27.0-32.0); Mean Platelet Vol. 10.9 fl (6.2-12.0); Monocyte# 0.52 X10^3/uL; Monocyte% 9.2 % (0-10); NRBC Flagged by Analyzer 0 % (0-5); Neutrophil # 3.15 X10^3/uL (2.7-7.7); Neutrophil % 55.7 % (47-70); Platelet Count 239 K/mm3 (150-450); Prothrombin Time (Protime)PT. 13.3 SECONDS (11.7-14.9); RBC Distribution Width CV 12.5 % (11.6-14.6); RBC Distribution Width SD 40.6 fl (35.1-43.9); Red Blood Count 5.02 M/mm3 (4.2-5.4); White Blood Count 5.7 K/mm3 (4.4-11.0)
[2024-09-03 12:53] LABS: ALB/GLOB Ratio 0.9 RATIO (0.9-2.4); AST(SGOT) 53 U/L (15-37); Alanine Aminotransfer ALT/SGPT 128 U/L (13-56); Albumin, Serum 3.5 g/dL (3.2-5.0); Alkaline Phosphatase 108 U/L (45-117); Anion Gap 4 (5-15); BUN 20 mg/dL (7-18); BUN/Creat Ratio 28.3 RATIO (10-20); CRP 3.21 mg/L (0.0-3.0); Calcium,Total 9.1 mg/dL (8.5-10.1); Chloride 106 mmol/L (98-107); Cholesterol 144 mg/dL (200); Creatinine, Serum 0.71 mg/dL (0.55-1.02); EST Glomerular Filtration Rate 94 mL/min (>60); Est Glom Filt Rate - Afr Amer 114 mL/min (>60); Ferritin 91 ng/mL (8-252); Glucose 91 mg/dL (74-106); High Density Lipoprotein 63 mg/dL; Iron 111 ug/dL (50-170); Iron Binding Capacity,Total 312 ug/dL (250-450); LDH 193 U/L (84-246); PERCENT IRON SATURATION 35.6 % (15.0-55.0); Potassium 3.6 mmol/L (3.5-5.1); Protein, Total 7.5 g/dL (6.4-8.2); Sodium Level 137 mmol/L (136-145); Triglycerides 67 mg/dL; Very Low Density Lipoprotein 13 mg/dL (5-40)
[2024-09-03 13:02] LABS: Hemoglobin A1c 5.2 % (3.8-5.6)
[2024-09-03 13:09] LABS: HIV - WCH Non-Reactive (Nonreactive)
[2024-09-04 11:07] LABS: ANTINUCLEAR ANTIBODIES DIRECT Negative (Negative); Anti-Mitochondrial AB <20.0 Units (0.0-20.0)
[2024-09-05 16:08] LABS: Albumin 3.5 g/dL (2.9-4.4); Alpha-1-Globulins 0.2 g/dL (0.0-0.4); Alpha-2-Globulins 0.7 g/dL (0.4-1.0); Anti-Smooth Muscle ABS 4 Units (0-19); Ceruloplasmin 29.6 mg/dL (19.0-39.0); Copper, Serum or Plasma 113 ug/dL (80-158); Cytoplasmic Ab (C-ANCA) <1:20 titer (Neg:<1:20); Free Kappa Light Chains 25.2 mg/L (3.3-19.4); Free Lambda Light Chains 15.4 mg/L (5.7-26.3); Gamma Globulin 1.3 g/dL (0.4-1.8); HEPATITIS B SURFACE AG Negative (Negative); Haptoglobin 201 mg/dL (42-296); Hep C Antibodies Non Reactive (Non Reactive); Hepatitis A IgM Antibody Negative (Negative); Hepatitis B Core AB IgM Negative (Negative); Immunoglobulin A 241 mg/dL (87-352); Immunoglobulin G 1182 mg/dL (586-1602); Immunoglobulin M 137 mg/dL (26-217); PROEL- TOTAL PROTEIN 6.8 g/dL (6.0-8.5); Perinuclear Ab (P-ANCA) <1:20 titer (Neg:<1:20)
== END | disposition home or self-care (01) ==
LOC: BIMLAB 08:56
PROVIDERS: Internal Medicine; PCP Internal Medicine; Referring Provider Internal Medicine; Visit Provider Internal Medicine
DX: E66.01 Morbid (severe) obesity due to excess calories (principal); K76.0 Fatty (change of) liver, not elsewhere classified; L90.0 Lichen sclerosus et atrophicus
CPT/HCPCS: 36415; 80053; 80061; 80074; 82390; 82525; 82728; 82784; 83010; 83036; 83516; 83540; 83550; 83615; 83883; 84165; 84443; 85025; 85610; 86037; 86038; 86140; 86334; 86703

== ENCOUNTER → 2024-10-01 | Outpatient (CLI) | payer OTHER, SELFPAY ==
--- NOTE | 2024-10-01 07:47 | US_ITS ---
PROCEDURE: ABD LIMITED W/ ELASTOGRAPHY REASON FOR EXAM: Liver fibrosis. COMPARISON: Comparison is made with prior study dated December 12, 2023. TECHNIQUE: Right upper quadrant abdominal ultrasound. Virax ElastQ Imaging shear wave elastography for non-invasive assessment of liver tissue stiffness. . FINDINGS: LIVER: Size: Grossly normal Length: 13.6 cm Echotexture: Diffusely echogenic suggesting fatty infiltration Contour: Normal Lesions: None identified Elastography: EQI Med: 9.2 kPa GALLBLADDER: Surgically absent. COMMON BILE DUCT: 8.4 mm . PANCREAS: Visualized portions are sonographically unremarkable. Visualized portions of the right kidney are unremarkable. No right upper quadrant ascites. The spleen is not enlarged. It measures 9.8 cm 4.1 cm x 4.2 cm. US/ABD Limited w/ Elastography IMPRESSION: F2 F3 Reference Values: SRU <1.37 m/s (5.7kPa): No to mild fibrosis 1.37 m/s - 2.2 m/s: Moderate to severe fibrosis >2.2 m/s (15kPa): Significant fibrosis / cirrhosis METAVIR Score F2 or higher: 1.34 m/s (5.7kPa) F3 or higher: 1.55 m/s (7.3kPa) F4: 1.80 m/s (10kPa) * If the IQR/Med is >30%, the variance in the measurements is a large and the a ccuracy of the measurement may be in question. Reading Location: [place] [id number]
--- NOTE | 2024-10-01 07:47 | BI_ITS ---
PROCEDURE: SCRN MAMM (CAD)W/ESE BILAT REASON FOR EXAM: F, Age 49 y/o, routine annual mammographic follow-up. Aunt with breast cancer. Prior outside examination dated July 04, 2019. TECHNIQUE: Bilateral screening digital breast tomosynthesis with 2D and 3D images. Computer aided detection. COMPARISON: Prior exam(s) dating back to outside examination dated July 04, 2019.. FINDINGS: There are scattered areas of fibroglandular density. No suspicious masses, areas of developing architectural distortion, or suspicious calcifications. BI/SCRN MAMM (CAD)W/ESE BILAT IMPRESSION: BI-RADS 1: NEGATIVE. RECOMMEND ANNUAL MAMMOGRAPHIC SCREENING. Follow-up code: Routine Follow-up The patient will be notified of the results by letter. Reading Location: [id number]
== END | disposition home or self-care (01) ==
PROVIDERS: PCP Internal Medicine; Referring Provider Internal Medicine; Visit Provider Internal Medicine
DX: Z12.31 Encounter for screening mammogram for malignant neoplasm of breast (principal); E66.01 Morbid (severe) obesity due to excess calories; Z80.3 Family history of malignant neoplasm of breast; K76.0 Fatty (change of) liver, not elsewhere classified; L90.0 Lichen sclerosus et atrophicus
CPT/HCPCS: 76705; 76981; 77063; 77067

== ENCOUNTER → 2024-10-05 | Outpatient (CLI) | payer OTHER, SELFPAY | END | disposition home or self-care (01) | LOC: PSN 06:57 | PROVIDERS: PCP Internal Medicine; Referring Provider Internal Medicine; Visit Provider Internal Medicine | DX: R00.2 Palpitations (principal) | CPT/HCPCS: 93225; 93226 ==

== ENCOUNTER 2024-11-13 07:24 | Day surgery (SDC) | payer OTHER, SELFPAY ==
--- NOTE | 2024-11-08 16:41 | PAT.ANE_ITS ---
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 When Was Last Pacemaker Check QUESTION #4 FULL TEXT: You/Your Family Experience fever (hyperthermia) with Anesthesia Last Oral Intake Last Oral intake: Last Oral Intake NPO since Meds taken in AM with sips of water? 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 - auditing manager: PONV - auditing manager Female Yes 11/08/24 14:46 HX of Motion Sickness No 11/08/24 14:46 HX of N/V After Surgery No 11/08/24 14:46 Non-Smoker Yes 11/08/24 14:46 Duration of Surgery greater No 11/08/24 14:46 than 60 minutes Number of Risk Factors 2 11/08/24 14:46 PONV Score Moderate Risk 11/08/24 14:46 Height & Weight Height & Weight: Anesthesia: Height & Weight Height 5 ft 1 in 10/02/24 09:44 Respiratory Assessment Respiratory Assessment - auditing manager: Respiratory Tract Infection Hx - auditing manager Hx Respiratory Tract Infection No 11/08/24 14:46 STOP Sleep Apnea STOP Sleep Apnea - auditing manager: STOP Sleep Apnea - auditing manager Hx Hypertension No 11/08/24 14:46 Hx Sleep Apnea No 11/08/24 14:46 CPAP No 12/15/23 12:38 BIPAP Do you snore loudly (louder No 11/08/24 14:46 than talking or can be heard Do you often feel tired/ No 11/08/24 14:46 fatigued/ sleepy during daytime? Has anyone observed you stop No 11/08/24 14:46 breathing during sleep? STOP Results Negative 11/08/24 14:46 QUESTION #5 FULL TEXT : Do you snore loudly (louder than talking or can be heard through closed doors)? Tobacco Use History Tobacco Use History - auditing manager: Tobacco Use History - auditing manager Tobacco Use Non-smoker 12/15/23 12:38 Smoking Status Never smoker 11/08/24 14:46 Hx Tobacco Use No 11/08/24 14:46 Years Smoking Packs Smoked per Day Smoking Cessation Date was within the last 15 years Hx Smoking Cessation Date Hx Smoking Cessation No 11/08/24 14:46 Counseling Hematologic Medial History Hematologic Hx - auditing manager: Hematologic Medical Hx - vp legal affairs Hx of Blood Transfusion No 11/08/24 14:46 Hx of Transfusion in last 3 No 11/08/24 14:46 Months Date of Last Transfusion (if within last 3 months) Ever experience any problems No 11/08/24 14:46 with transfusion(s)? Specify any problems Hx of Preganancy in last 3 No 11/08/24 14:46 Months Nurse Filling Out Transfusion [place] 11/08/24 14:46 & Questions: Date: 11/08/24 11/08/24 14:46 Time: 14:58 11/08/24 14:46 Patient unable to answer at this time (ie. confused, unrespo /Reproduction History /Reproductive History - auditing manager: /Reproductive Hx- auditing manager Hx Now No 11/08/24 14:46 Gestational Age (in weeks): EDC: Hx Hx Para Hx Section SAB No 11/08/24 14:46 PFSH Medical History (Updated 11/08/24 @ 14:57 by Suzie Scott) Wears glasses Post-menopausal Depression Anxiety Bite by animal Hemiplegic migraine Blackout History of IBS Non-smoker History of Holter monitoring History of echocardiogram Family history of colon cancer Personal history of colonic polyps IBS (irritable bowel syndrome) Migraine Back problem GERD (gastroesophageal reflux disease) Fatty liver Bilateral tinnitus Gallstones Morbid obesity Fibromyalgia Home Medications ?Medication ?Instructions ?Recorded ?Last Taken ?Type polyethylene glycol 3350 17 4 g PO DAILY 01/10/24 Unkn own History gram/dose oral powder (Miralax) psyllium husk 0.4 gram capsule 0.4 g PO DAILY 01/10/24 Unknown History (Metamucil) pantoprazole 40 mg tablet,delayed 40 mg PO DAILY #90 t abs 07/02/24 Unknown Rx release (Protonix) cholecalciferol (vitamin D3) 10 4,000 unit PO DAILY Unknown History mcg (400 unit) capsule topiramate 25 mg tablet 50 mg PO BID Migraines 09/03 Unknown History loratadine 10 mg tablet 10 mg PO QDAY 10/02/24 Unkno wn History multivitamin 1 tab PO QDAY 10/02/24 Unkno wn History desvenlafaxine 100 mg 100 mg PO QDAY #30 tabs 09/29 03/22 Unknown Rx tablet,extended release 24 hr Allergy/AdvReac Type Severity Reaction Status Date / Time egg Allergy Other Verified 11/08/24 14:43 lactose (lactose intolerant) Allergy Constipatio Verified 11/08/24 14:43 n Food Allergies: Uncoded AdvReac BANANA, Verified 11/08/24 14:43 THROAT SWELLS milk AdvReac Constipatio Verified 11/08/24 14:43 n prednisone AdvReac Nausea/Vom/ Verified 11/08/24 14:43 Diarrhea Family History Mother Age: 67 Rheumatoid arthritis Hypertension Osteoporosis Thyroid disorder Anemia Anxiety Father Age: 71 Hypertension Hyperlipemia Grandmother VTE (venous thromboembolism) Maternal grandmother. Colon cancer at 59yrs Blood coagulation disorder Age related osteoporosis Rheumatoid arthritis Brother Age: 44 VTE (venous thromboembolism) CVA (cerebral vascular accident) Hypertension Rheumatoid arthritis Grandfather Alcoholism Grandmother Diabetes Heart disease Grandfather Diabetes Heart disease Aunt Schizophrenia Surgical History (Updated 11/08/24 @ 14:46 by Suzie Scott) History of hysterectomy Hx of colonoscopy S/P cholecystectomy S/P tonsillectomy and adenoidectomy H/O tubal ligation H/O: hysterectomy Social History adopted: No household members: spouse, family and children current occupational status: unemployed pets and animals: Yes pets and animals: cat(s), dog(s), fish and farm animals sexually active: Yes Smoking Status: Never smoker Electronic Cigarette Use: not used alcohol intake: current alcohol intake frequency: holidays/special occasions only substance use type: does not use diet: lactose free and other caffeine: Yes (1) Type: coffee frequency: does not exercise seatbelt use: always do you feel safe at home: Yes Audit: Pertinent Findings Pertinent Findings EKG Perinent findings: NSR Echo (EF%) pertinent findings: Echo 10/22 showed EF 55-60%, normal LV systolic fxn Current Visit Impressions Current Visit Impressions: Holter monitor showed NSR. Recommendation Anesthesia Recommendation Anesthesia recommendation: OPTIMIZED for anesthesia
[2024-11-13] VITALS (7 sets, daily range): BP systolic 110–133; BP diastolic 78–97; PULSE 83–99; RESP 14–16; TEMP 36.2–36.6; O2SAT 98–100; BMI 36.6
--- NOTE | 2024-11-13 08:12 | PCM.PRE.AN2 ---
ASA Classification* ASA Classification ASA Classification: 3 (Patient has a history of hemiplegic migraines and being worked up for POTS. Cardiac workup so far has been negative. Patient is actively having a hemiplegic migraine which can result in her having stroke-like symptoms. She is actively having some facial droop, but this goes with her migraines.) Assessment & Plan Anesthesia* Anesthesia Assessment Anesthesia Assessment: Discussed sedation and/or anesthesia options, risks, benefits, and alternatives with patient/parents/legal guardian/POA. Questions invited. The patient/parents/legal guardian/POA seems to understand and agrees to proceed with anesthesia plan. Reviewed the physical assessment, medical history, allergy history and patient home medications list prior to surgery/procedure/anesthetic and documented any changes. Performed airway and anesthesia risk assessments. I discussed with the patient her current symptomatology, as well as her reporting NOT taking her topiramate the last two days due to having to do the colonoscopy prep. I counseled the patients on the risks of proceeding with the procedure today in light of her active symptoms, and the patient has agreed to to accept the risk of having the procedure today in light of her active symptoms. As per the patient's own reporting as well as documentation in the chart, the patient has a clear history of facial droop and light sensitiveness during her migraine episodes, which is currently happening. Given that this is the patient's condition at baseline, and is considered her stable self, she is at a moderate risk of perioperative complications including, but not limited to stroke and VA Anesthesia Type Anesthesia Type: General History Source History Obtained from:: Patient, Chart and Significant Other Anesthesia Focused Assessment* Temperature: 97.1 F Pulse Rate: 99 Blood Pressure: 133/97 Respiratory Rate: 14 Pulse Ox: 100 Oxygen Delivery Method: Room Air Airway Assessment Mouth opens: 2 cm Mallampati Score: III Teeth Condition: Intact and Missing (top right) Neck Range of motion (ROM): Full ROM Focused Labs Anesthesia Preop lab: CBC WBC 5.7 K/mm3 (4.4-11.0) 09/03/24 08:58 09/03/24 RBC 5.02 M/mm3 (4.2-5.4) 09/03/24 08:58 09/03/24 Hgb 15.0 g/dL (12.0-15.0) 09/03/24 08:58 09/03/24 Hct 44.7 % (37-47) 09/03/24 08:58 09/03/24 Plt Count 239 K/mm3 (150-450) 09/03/24 08:58 09/03/24 CHEMISTRY Potassium 3.6 mmol/L (3.5-5.1) 09/03/24 08:58 09/03/24 Sodium 137 mmol/L (136-145) 09/03/24 08:58 09/03/24 Magnesium 2.2 mg/dL (1.6-2.6) 12/13/23 04:30 12/13/23 Phosphorus 4.2 mg/dL (2.5-4.9) 12/13/23 04:30 12/13/23 BUN 20 mg/dL (7-18) H 09/03/24 08:58 09/03/24 Creatinine 0.71 mg/dL (0.55-1.02) 09/03/24 08:58 09/03/24 Glucose 91 mg/dL (74-106) 09/03/24 08:58 09/03/24 POC Glucose 112 mg/dL (74-106) H 10/21/23 21:44 10/21/23 TSH 3.010 uIU/mL (0.358-3.740) 09/03/24 08:58 09/03/24 COAG PT 13.3 SECONDS (11.7-14.9) 09/03/24 08:58 09/03/24 Pre-Assessment Diagnosis/Proposed Procedure Planned Operative Procedure(s): COLONOSCOPY Anesthesia History 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 When Was Last Pacemaker Check QUESTION #4 FULL TEXT: You/Your Family Experience fever (hyperthermia) with Anesthesia Last Oral Intake Last Oral intake: Last Oral Intake NPO since 04:30 11/13/24 07:50 Meds taken in AM with sips of No 11/13/24 07:50 water? 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 Female Yes 11/08/24 14:46 HX of Motion Sickness No 11/08/24 14:46 HX of N/V After Surgery No 11/08/24 14:46 Non-Smoker Yes 11/08/24 14:46 Duration of Surgery greater No 11/08/24 14:46 than 60 minutes Number of Risk Factors 2 11/08/24 14:46 PONV Score Moderate Risk 11/08/24 14:46 Height & Weight Height & Weight: Anesthesia: Height & Weight Height 5 ft 1 in 11/13/24 07:50 Weight: 88.1 kg 11/13/24 07:50 Body Mass Index (BMI) 36.6 11/13/24 07:50 Respiratory Assessment Respiratory Assessment - robotic toy inventor: Respiratory Tract Infection Hx - robotic toy inventor Hx Respiratory Tract Infection No 11/08/24 14:46 STOP Sleep Apnea STOP Sleep Apnea - robotic toy inventor: STOP Sleep Apnea - robotic toy inventor Hx Hypertension No 11/08/24 14:46 Hx Sleep Apnea No 11/08/24 14:46 CPAP No 12/15/23 12:38 BIPAP Do you snore loudly (louder No 11/08/24 14:46 than talking or can be heard Do you often feel tired/ No 11/08/24 14:46 fatigued/ sleepy during daytime? Has anyone observed you stop No 11/08/24 14:46 breathing during sleep? STOP Results Negative 11/08/24 14:46 QUESTION #5 FULL TEXT : Do you snore loudly (louder than talking or can be heard through closed doors)? 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 Specify any problems Hx of Preganancy in last 3 No 11/08/24 14:46 Months Nurse Filling Out Transfusion [facility] 11/08/24 14:46 & Questions: Date: 11/08/24 11/08/24 14:46 Time: 14:58 11/08/24 14:46 Patient unable to answer at this time (ie. confused, unrespo /Reproduction History /Reproductive History - robotic toy inventor: /Reproductive Hx- robotic toy inventor Hx Now No 11/08/24 14:46 Gestational Age (in weeks): EDC: Hx Hx Para Hx Section SAB No 11/08/24 14:46 PFSH Medical History (Updated 11/08/24 @ 14:57 by Suzie Scott) Wears glasses Post-menopausal Depression Anxiety Bite by animal Hemiplegic migraine Blackout History of IBS Non-smoker History of Holter monitoring History of echocardiogram Family history of colon cancer Personal history of colonic polyps IBS (irritable bowel syndrome) Migraine Back problem GERD (gastroesophageal reflux disease) Fatty liver Bilateral tinnitus Gallstones Morbid obesity Fibromyalgia Home Medications ?Medication ?Instructions ?Recorded ?Last Taken ?Type polyethylene glycol 3350 17 4 g PO DAILY 01/10/24 Unknown History gram/dose oral powder (Miralax) psyllium husk 0.4 gram capsule 0.4 g PO DAILY 01/10/24 11/10/24 History (Metamucil) pantoprazole 40 mg tablet,delayed 40 mg PO DAILY #90 tabs 07/02/24 Unknown Rx release (Protonix) cholecalciferol (vitamin D3) 10 4,000 unit PO DAILY 09/03/24 11/10/24 History mcg (400 unit) capsule topiramate 25 mg tablet 50 mg PO BID Migraines 09/03/24 11/10/24 History loratadine 10 mg tablet 10 mg PO QDAY 10/02/24 Unknown History multivitamin 1 tab PO QDAY 10/02/24 11/10/24 History desvenlafaxine 100 mg 100 mg PO QDAY #30 tabs 10/15/24 11/10/24 Rx tablet,extended release 24 hr Allergy/AdvReac Type Severity Reaction Status Date / Time egg Allergy Other Verified 11/13/24 07:48 lactose (lactose intolerant) Allergy Constipatio Verified 11/13/24 07:48 n Food Allergies: Uncoded AdvReac BANANA, Verified 11/13/24 07:48 THROAT SWELLS milk AdvReac Constipatio Verified 11/13/24 07:48 n prednisone AdvReac Nausea/Vom/ Verified 11/13/24 07:48 Diarrhea Family History Mother Age: 67 Rheumatoid arthritis Hypertension Osteoporosis Thyroid disorder Anemia Anxiety Father Age: 71 Hypertension Hyperlipemia Grandmother VTE (venous thromboembolism) Maternal grandmother. Colon cancer at 59yrs Blood coagulation disorder Age related osteoporosis Rheumatoid arthritis Brother Age: 44 VTE (venous thromboembolism) CVA (cerebral vascular accident) Hypertension Rheumatoid arthritis Grandfather Alcoholism Grandmother Diabetes Heart disease Grandfather Diabetes Heart disease Aunt Schizophrenia Surgical History (Updated 11/08/24 @ 14:46 by Suzie Scott) History of hysterectomy Hx of colonoscopy S/P cholecystectomy S/P tonsillectomy and adenoidectomy H/O tubal ligation H/O: hysterectomy Social History adopted: No household members: spouse, family and children current occupational status: unemployed pets and animals: Yes pets and animals: cat(s), dog(s), fish and farm animals sexually active: Yes Smoking Status: Never smoker Electronic Cigarette Use: not used alcohol intake: current alcohol intake frequency: holidays/special occasions only substance use type: does not use diet: lactose free and other caffeine: Yes (1) Type: coffee frequency: does not exercise seatbelt use: always do you feel safe at home: Yes Review of Systems (Anesthesia) ROS Narrative System reviewed and no additional complaints, except as documented. Physical Exam Narrative Facial droop noted during physical exam, patient wearing sunglasses for migraines Const alert, oriented x3 and average body habitus Resp normal respiratory effort, normal air movement and clear to auscultation bilaterally Cardio regular rate, regular rhythm, no murmurs and diaphoretic
--- NOTE | 2024-11-13 08:49 | HP.PCM_ITS ---
HPI - General HPI Narrative HECTOR LEON, is a 49 F who presents for surveillance colonoscopy. She confirms her preappointment questionnaire that she has not experienced any change in her bowel habits-and particularly denies any notice of blood. If anything, she states that her bowels have been more regular and more effortless since her cholecystectomy with me on 12/14/2023. Beyond the surgery she has been making more regular use of fiber and MiraLAX. She also shares about her family history with colon cancer in her maternal grandmother at the age of 59. Lastly she confirms that her prep was completed successfully and that her output is now clear. [facility] Medical History (Updated 11/13/24 @ 08:[address] Marin He MD) Wears glasses Post-menopausal Depression Anxiety Bite by animal Hemiplegic migraine Blackout History of IBS Non-smoker History of Holter monitoring History of echocardiogram Family history of colon cancer Personal history of colonic polyps IBS (irritable bowel syndrome) Migraine Back problem GERD (gastroesophageal reflux disease) Fatty liver Bilateral tinnitus Gallstones Morbid obesity Fibromyalgia Home Medications ?Medication ?Instructions ?Recorded ?Last Taken ?Type polyethylene glycol 3350 17 4 g PO DAILY 01/10/24 Unkn own History gram/dose oral powder (Miralax) psyllium husk 0.4 gram capsule 0.4 g PO DAILY 01/10/24 11/10/24 History (Metamucil) pantoprazole 40 mg tablet,delayed 40 mg PO DAILY #90 t abs 07/02/24 Unknown Rx release (Protonix) cholecalciferol (vitamin D3) 10 4,000 unit PO DAILY 11/10/24 History mcg (400 unit) capsule topiramate 25 mg tablet 50 mg PO BID Migraines 09/0311/10/24 History loratadine 10 mg tablet 10 mg PO QDAY 10/02/24 Unkno wn History multivitamin 1 tab PO QDAY 10/02/2411/10 History desvenlafaxine 100 mg 100 mg PO QDAY #30 tabs 09/2911/10/24 Rx tablet,extended release 24 hr Allergy/AdvReac Type Severity Reaction Status Date / Time egg Allergy Other Verified 11/13/24 07:48 lactose (lactose intolerant) Allergy Constipatio Verified 11/13/24 07:48 n Food Allergies: Uncoded AdvReac BANANA, Verified 11/13/24 07:48 THROAT SWELLS milk AdvReac Constipatio Verified 11/13/24 07:48 n prednisone AdvReac Nausea/Vom/ Verified 11/13/24 07:48 Diarrhea Family History Mother Age: 67 Rheumatoid arthritis Hypertension Osteoporosis Thyroid disorder Anemia Anxiety Father Age: 71 Hypertension Hyperlipemia Grandmother VTE (venous thromboembolism) Maternal grandmother. Colon cancer at 59yrs Blood coagulation disorder Age related osteoporosis Rheumatoid arthritis Brother Age: 44 VTE (venous thromboembolism) CVA (cerebral vascular accident) Hypertension Rheumatoid arthritis Grandfather Alcoholism Grandmother Diabetes Heart disease Grandfather Diabetes Heart disease Aunt Schizophrenia Surgical History (Updated 11/08/24 @ 14:46 by Suzie Scott) History of hysterectomy Hx of colonoscopy S/P cholecystectomy S/P tonsillectomy and adenoidectomy H/O tubal ligation H/O: hysterectomy Social History adopted: No household members: spouse, family and children current occupational status: unemployed pets and animals: Yes pets and animals: cat(s), dog(s), fish and farm animals sexually active: Yes Smoking Status: Never smoker Electronic Cigarette Use: not used alcohol intake: current alcohol intake frequency: holidays/special occasions only substance use type: does not use diet: lactose free and other caffeine: Yes (1) Type: coffee frequency: does not exercise seatbelt use: always do you feel safe at home: Yes Past Medical/Surgical History Planned Operation Planned Operative Procedure(s): COLONOSCOPY Previous Hospitalizations/Surgeries HX Hospitalizations: Yes (09/2023 MIGRANES VS CVA) Any Problems With Anesthesia: Yes (ANXIETY, AND GETS HEMAPLEGIC MIGRANES THAT MIMIC S/S OF CVA) You/Your Family Experience Fever (Hyperthermia) With Anes: No Cholinesterase deficiency: No Cardiovascular Hx of Irregular Heartbeat and/or Afib: No Hx Heart Attack: No Hx Congestive Heart Failure: No Hx Hypertension: No Hx Pacemaker: No Respiratory Hx Chronic Obstructive Pulmonary Disease (COPD): No Hx Asthma: No Hx Emphysema: No Hx Sleep Apnea: No CPAP: No Hx Respiratory Tract Infection/Cold (presently): No Do You Snore Loudly (louder than talking or can be heard): No Do You Often Feel Tired/ Fatigued/ Sleepy Dring Daytime?: No Has Anyone Observed You Stop Breathing During Sleep?: No Result (for STOP score): Negative Smoking Status: Never smoker Gastrointestinal Hx Ulcer: No Neurological Hx Seizures: No Hx Transient Ischemic Attacks (TIA): No Hx Head/Neck Injury: No Hx Headaches: Yes Hx Back Injury/Pain: No Does patient have nerve stimulator: No Blood Disorder Hx Deep Vein Thrombosis: Yes Reproduction : No Endocrine Hx Diabetes: No Miscellaneous Recent Exposure to Contagious Disease: No Allergies egg Allergy (Verified 11/13/24 07:48) Other Throat Swells lactose (lactose intolerant) Allergy (Verified 11/13/24 07:48) Constipation Food Allergies: Uncoded Adverse Reaction (Verified 11/13/24 07:48) BANANA, THROAT SWELLS BANANA milk Adverse Reaction (Verified 11/13/24 07:48) Constipation prednisone Adverse Reaction (Verified 11/13/24 07:48) Nausea/Vom/Diarrhea Discharge Is Pt Admitted From a Correction, or a Senior Living: No Who Could Help: After D/C, Where Do you Plan to Go: Return Home Vital Signs Vital Signs Vital Signs: 11/13/24 07:50 11/13/24 07:50 11/13/24 08:13 Temperature 97.1 F L 97.1 F L Temperature Source Temporal Pulse Rate 99 99 Respiratory Rate 14 14 Respiratory Pattern Normal Blood Pressure 133/97 H 133/97 H Blood Pressure Mean 109 Blood Pressure Source Monitor Blood Pressure Position Semi-Fowlers Blood Pressure Location Right Arm Pulse Ox 100 100 Oxygen Delivery Method Room Air Room Air Weight Weight: 194 lb 3.636 oz Body Mass Index (BMI) 36.6 Physical Exam Const alert, oriented x3 and no apparent distress Resp normal respiratory effort GI GI Narrative: Nondistended, soft, nontender to palpation x 4 quadrants Assessment & Plan Assessment/Plan (1) Personal history of colonic polyps: PLAN: Patient 49-year-old female who makes her appointment for open access colonoscopy. She confirms her preappointment questionnaire content that indicated both a family history of colon cancer and personal history of colonic polyps. Last colonoscopy was 2019 did include polypectomy. Patient has had some improvement in her bowel habits after being more intentional with use of fiber and laxatives. She denies any concerning symptoms of bleeding or straining. Lastly she confirms completion of a colon prep for today's procedure. Will thus proceed to endoscopy suite for colonoscopy as scheduled. Surgery Risks - Colonoscopy Risks Include but are not Limited To: Risks include but are not limited to: Bleeding, perforation requiring further surgery, inability to complete colonoscopy requiring barium enema.
--- NOTE | 2024-11-13 09:29 | OP.COLON_ITS ---
Patient Name: Zunilda Borrego Procedure Date: 11/13/2024 8:37 AM Date of : 1975 Age: 49 Procedure: Colonoscopy Indications: High risk colon cancer surveillance: Personal history of colonic polyps Providers: Marin He MD Referring MD: Anita Lee Md Medicines: See the Anesthesia note for documentation of the administered medications Patient Profile: Last Colonoscopy: several years ago. Complications: No immediate complications. Procedure: Pre-Anesthesia Assessment: - The heart rate, respiratory rate, oxygen saturations, blood pressure, adequacy of pulmonary ventilation, and response to care were monitored throughout the procedure. After I obtained informed consent, the scope was passed under direct vision. Throughout the procedure, the patient's blood pressure, pulse, and oxygen saturations were monitored continuously. The Colonoscope was introduced through the anus and advanced to the cecum, identified by the appendiceal orifice, ileocecal valve and palpation. The colonoscopy was performed without difficulty. The patient tolerated the procedure well. The quality of the bowel preparation was good. Scope In: 9:05:23 AM Scope Withdrawal Time 0 hours 10 minutes 23 seconds Scope Out: 9:21:16 AM Total Procedure Duration Time 0 hours 15 minutes 53 seconds Findings: The perianal and digital rectal examinations were normal. Pertinent negatives include normal sphincter tone. The colon (entire examined portion) appeared normal. No biopsies or other specimens were collected for this exam. Anal papilla(e) were hypertrophied. No biopsies or other specimens were collected for this exam. The entire examined colon appeared normal on direct and retroflexion views. Impression: - The entire examined colon is normal. No specimens collected. - Anal papilla(e) were hypertrophied. No specimens collected. - The entire examined colon is normal on direct and retroflexion views. Recommendation: - Discharge patient to home (via wheelchair). - Resume previous diet today. - Continue present medications. - Repeat colonoscopy in 5 years for surveillance. - Telephone my office for study results in 1 week. Procedure Code(s): --- Professional --- G0105, Colorectal cancer screening; colonoscopy on individual at high risk Diagnosis Code(s): --- Professional --- K62.89, Other specified diseases of anus and rectum Z86.010, Personal history of colonic polyps CPT copyright 2021 [employer] [place] [employer]. All rights reserved. The codes documented in this report are preliminary and upon system specialist review may be revised to meet current compliance requirements. Marin He MD 11/13/2024 9:28:58 AM This report has been signed electronically. Number of Addenda: 0 Note Initiated On: 11/13/2024 8:37 AM
--- NOTE | 2024-11-13 09:29 | OP.CCLET_ITS ---
11/13/2024 Anita Lee Md Re : Colonoscopy procedure for Zunilda Borrego Dear Rosa This procedure was performed on Wednesday, November 13, 2024. My impressions and recommendations are as follows: Impressions : - The entire examined colon is normal. No specimens collected. - Anal papilla(e) were hypertrophied. No specimens collected. - The entire examined colon is normal on direct and retroflexion views. Recommendations : - Discharge patient to home (via wheelchair). - Resume previous diet today. - Continue present medications. - Repeat colonoscopy in 5 years for surveillance. - Telephone my office for study results in 1 week. My findings are described in the full procedure note, which is enclosed. If I can be of further assistance, please feel free to contact me at Doctor phone number(s): , Work: . Sincerely, Marin He MD 11/13/2024 9:28:58 AM This report has been signed electronically.
--- NOTE | 2024-11-13 09:30 | PCM.POST.ANE ---
Anesthesia: Postop Eval I Current Vital Signs Temperature: 97.8 F Pulse Rate: 97 Blood Pressure: 114/85 Respiratory Rate: 16 Pulse Ox: 98 Assessment Airway patent: Yes Spontaneous unlabored respirations: Yes nausea: No Vomiting: No Anesthesia Complication: No Fluid Hydration Crystalloid volume administer (ml): 30 Total IV fluid infused: 30 Progress Note Anesthesia document: Postop Eval 1 completed: Yes
--- NOTE | 2024-11-13 09:37 | POSTOPAN2_ITS ---
Anesthesia Postop Eval I Sum Postop Eval Completion status Anesthesia document: Postop Eval 1 completed: Yes Anesthesia Postop Eval I Summary Anesthesia Postop Eval I Summary: Anesthesia Postop Eval I: Assessment Summary Airway patent Yes 11/13/24 09:30 AUTOMOTIVE INSTRUCTOR.TNES Spontaneous unlabored Yes 11/13/24 09:30 AUTOMOTIVE INSTRUCTOR.TNES respirations Mental status nausea No 11/13/24 09:30 AUTOMOTIVE INSTRUCTOR.TNES Vomiting No 11/13/24 09:30 AUTOMOTIVE INSTRUCTOR.TNES Anesthesia Postop Eval I: Fluid Summary Crystalloid volume administer 30 11/13/24 09:30 AUTOMOTIVE INSTRUCTOR.TNES (ml) Colloids volume administered ( ml) Blood Product volume administered (ml) Total IV fluid infused 30 11/13/24 09:30 AUTOMOTIVE INSTRUCTOR.TNES Anesthesia Postop Eval I: Summary Notes Anesthesia Complication No 11/13/24 09:30 AUTOMOTIVE INSTRUCTOR.TNES Anesthesia Complication Comment: Post-operative progress note Anesthesia: Postop Eval II Evaluation Mental status: Awake Pain Level: 0 nausea: No Vomiting: No Complications Anesthesia Complication: No
--- NOTE | 2024-11-13 09:37 | PCM.POSTANE2 ---
Anesthesia Postop Eval I Sum Postop Eval Completion status Anesthesia document: Postop Eval 1 completed: Yes Anesthesia Postop Eval I Summary Anesthesia Postop Eval I Summary: Anesthesia Postop Eval I: Assessment Summary Airway patent Yes 11/13/24 09:30 TRACTOR TRAILER TECHNICIAN.TNES Spontaneous unlabored Yes 11/13/24 09:30 TRACTOR TRAILER TECHNICIAN.TNES respirations Mental status nausea No 11/13/24 09:30 TRACTOR TRAILER TECHNICIAN.TNES Vomiting No 11/13/24 09:30 TRACTOR TRAILER TECHNICIAN.TNES Anesthesia Postop Eval I: Fluid Summary Crystalloid volume administer 30 11/13/24 09:30 TRACTOR TRAILER TECHNICIAN.TNES (ml) Colloids volume administered ( ml) Blood Product volume administered (ml) Total IV fluid infused 30 11/13/24 09:30 TRACTOR TRAILER TECHNICIAN.TNES Anesthesia Postop Eval I: Summary Notes Anesthesia Complication No 11/13/24 09:30 TRACTOR TRAILER TECHNICIAN.TNES Anesthesia Complication Comment: Post-operative progress note Anesthesia: Postop Eval II Evaluation Mental status: Awake Pain Level: 0 nausea: No Vomiting: No Complications Anesthesia Complication: No
== END 2024-11-13 10:05 | disposition home or self-care (01) ==
LOC: EN 07:25 → AC 07:26
PROVIDERS: PCP Internal Medicine; Referring Provider Internal Medicine; Visit Provider Surgery
PROC: 0DJD8ZZ Inspection of Lower Intestinal Tract, Via Natural or Artificial Opening Endoscopic (ICD-10-PCS; CPT 45378; principal; 2024-11-13 08:25)
DX: Z12.11 Encounter for screening for malignant neoplasm of colon (principal); K21.9 Gastro-esophageal reflux disease without esophagitis; Z86.0100 Personal history of colon polyps, unspecified; Z80.0 Family history of malignant neoplasm of digestive organs; Z90.49 Acquired absence of other specified parts of digestive tract; Z79.899 Other long term (current) drug therapy; Z90.710 Acquired absence of both cervix and uterus; Z98.51 Tubal ligation status; K62.89 Other specified diseases of anus and rectum
CPT/HCPCS: 45378; A4216

== ENCOUNTER → 2024-12-20 | Outpatient (CLI) | payer OTHER, SELFPAY ==
[2024-12-20 10:20] LABS: Hematocrit 40.5 % (37-47); Hemoglobin 13.7 g/dL (12.0-15.0); Mean Corp Hgb Conc 33.8 g/dL (32-36); Mean Corpuscular Hgb 31.1 pg (27.0-32.0); Mean Platelet Vol. 9.4 fl (6.2-12.0); Platelet Count 299 K/mm3 (150-450); RBC Distribution Width CV 12.7 % (11.6-14.6); RBC Distribution Width SD 42.6 fl (35.1-43.9); White Blood Count 6.6 K/mm3 (4.4-11.0)
[2024-12-20 11:05] LABS: Anion Gap 10 (5-15); BUN 22 mg/dL (4-19); BUN/Creat Ratio 32.4 RATIO (10-20); Carbon Dioxide 22.8 mmol/L (21.0-32.0); Chloride 109 mmol/L (98-108); Creatinine, Serum 0.69 mg/dL (0.70-1.20); EST Glomerular Filtration Rate 108 (>60); Glucose 100 mg/dL (70-99); Potassium 4.4 mmol/L (3.3-5.1); Sodium Level 141 mmol/L (133-145)
== END | disposition home or self-care (01) ==
LOC: LAB 09:51
PROVIDERS: PCP Internal Medicine; Referring Provider Internal Medicine; Visit Provider Internal Medicine
DX: R00.2 Palpitations (principal)
CPT/HCPCS: 36415; 80048; 85027

== ENCOUNTER → 2024-12-25 | Outpatient (CLI) | payer OTHER, SELFPAY ==
--- NOTE | 2024-12-25 14:12 | PCM.TILTTABL ---
Staff Staff: Maru Vera and Mary Alice Polanco Summary Pre Test Resting HR: 83 Pre Test Resting BP: 139/82 Minimum Test HR: 83 Maximum Test HR: 133 Minimum Test BP: 119/80 Maximum Test BP: 137/90 Reason for Test Termination: Reached Maximum Test Time Physician Tilt Table Report Patient's Physicians Primary Care Physician: Anita Lee Indications/Diagnosis: Dizziness Procedure Comments: Patient was brought to the noninvasive lab in the postabsorptive state. Informed consent was obtained. The initial heart rate was noted to be 83 bpm with a blood pressure 139/82 mmHg. The patient was then put in the 70 degree head upright tilt position for total duration of 20 minutes continuous EKG monitoring was performed. Patient complained of slight clamminess and mild chest tightness symptoms which dissipated. The patient was then put back in the recumbent position. She was given 0.4 mg of sublingual nitroglycerin and then put back in the 70 degree head upright tilt position. The heart rate went from 87 to 133 bpm with blood pressure remaining fairly stable initially 137/88 to 125/79. Patient complained of minimal sinus pressure. The heart rate and slowly went back to approximately 108 bpm with a blood pressure 131/74 mmHg. Summary: Head upright tilt test with inconclusive hemodynamic changes.POTS cannot be completely excluded.
[2024-12-25 14:15] VITALS: BP 119/80; BP 137/90; BP 139/82
== END | disposition home or self-care (01) ==
LOC: CVS 09:58
PROVIDERS: PCP Internal Medicine; Referring Provider Internal Medicine; Visit Provider Internal Medicine
DX: F32.1 Major depressive disorder, single episode, moderate (principal); R00.2 Palpitations; F41.9 Anxiety disorder, unspecified
CPT/HCPCS: 93660; A4216

== ENCOUNTER 2025-07-16 23:34 | Emergency (ER) | payer OTHER, SELFPAY ==
[2025-07-16 23:35] VITALS: BP 150/105; PULSE 103; RESP 18; TEMP 35.8; O2SAT 99
[2025-07-16 23:39] VITALS: BMI 36.7
[2025-07-16 23:51] VITALS: BP 102/42; PULSE 87; RESP 18; O2SAT 100
[2025-07-17] VITALS: BP 119/80; PULSE 89; RESP 16; O2SAT 100
--- OUTSIDE RECORDS SUMMARY | 2025-07-17 00:02 | XMS RPT_ITS | CCD ---
Author Organization [facility] Care Team Providers [employer] Name Role Phone Manda Mercado MD Primary Care Provider Dr. Mike Mercado Primary Care Provider [phone] Dr. Purvi Louis Attending Provider Dr. Dante Christensen Attending Provider [phone] Dr. Nadia Cardenas Emergency Provider [phone] Dr. Ioana Griffiths Admit Provider Dr. Ioana Griffiths Other Provider MD Kristin De Paz Other Provider Unavailable Dr. Guero Stanford Other Provider MD Yesi Lai Other Provider Unavailable Dr. Ninoska Montes De Oca Other Provider Dr. Lana Magallon Other Provider Dr. Andrei Martinez Other Provider Dr. Viry Murillo Other Provider Dr. Prudencio Prasad Other Provider Dr. Shane Cummings Other Provider MD Barbara Wolf Other Provider [phone] Bob Aquino Other Provider Dr. Sandee Alvarez Other Provider Dr. Andrea Landa Other Provider Dr. Robin Gamboa Other Provider Dr. Param Lai Other Provider Dr. Meghann Ramírez Other Provider Dr. Tino Gonzales Other Provider Dr. Lay Garcia Other Provider Unavailable MD Nayan Wernersef Other Provider Unavailable Dr. Leilani Reece Attending Provider Dr. Leilani Reece Other Provider Dr. Milton Becker Other Provider Dr. Jagdish Duenas Other Provider Dr. Isaac Hernández Other Provider Dr. Garth Souza Other Provider Dr. Chacha Rosas Other Provider [phone] Dr. Adi Lau Other Provider Dr. Lisseth Brock Other Provider Dr. Inderjit Miller Other Provider Unavailable Dr. Sven Castillo Other Provider Dr. Mark Cox Other Provider Dr. Buck Bates Other Provider Unavailab Dr. Omar Manzano Other Provider Dr. Johnathan Hutchison Other Provider [phone] Juliano CLINICAL PSYCHIATRIST, CLINICAL PSYCHIATRIST-C Angleique Other Provider Dr. Ioana Griffiths Attending Provider [phone] Mike Mercado Primary Care Provider Dr. Purvi Louis Attending Provider Dr. Dante Christensen Attending Provider Dr. Ioana Griffiths Referring Provider [phone] Nadia Cardenas Emergency Provider Dr. Ioana Griffiths Admit Provider White, Dr. Ioana L Other Provider MD Kristin De Paz Other Provider Unavailable Dr. Guero Stanford Other Provider MD Yesi Lai Other Provider Unavailable Dr. Ninoska Montes De Oca Other Provider Dr. Lana Magallon Other Provider Dr. Andrei Martinez Other Provider Dr. Viry Murillo Other Provider Dr. Prudencio Prasad Other Provider Dr. Shane Cummings Other Provider MD Barbara Wolf Other Provider Dr. Bob Aquino Other Provider Dr. Sandee Alvarez Other Provider Dr. Andrea Landa Other Provider Dr. Robin Gamboa Other Provider Dr. Param Lai Other Provider Dr. Meghann Ramírez Other Provider Dr. Tino Gonzales Other Provider Dr. Lay Garcia Other Provider Unavailable MD Michela Werner Other Provider Unavailable Dr. Leilani Reece Attending Provider Dr. Leilani Reece Other Provider Dr. Milton Becker Other Provider Dr. Jagdish Duenas Other Provider Dr. Isaac Hernández Other Provider Dr. Grath Souza Other Provider Dr. Chacha Rosas Other Provider Dr. Adi Lau Other Provider Dr. Lisseth Brock Other Provider Dr. Inderjit Miller Other Provider Unavailable Dr. Sven Castillo Other Provider Dr. Mark Cox Other Provider Dr. Buck Bates Other Provider Unavailab Dr. Omar Manzano Other Provider Dr. Johnathan Hutchison Other Provider Juliano CLINICAL PSYCHIATRIST, CLINICAL PSYCHIATRIST-C Angelique Other Provider Dr. Ioana Griffiths Attending Provider Dr. Elyse Weiss Emergency Provider Dr. Tl Tomas Other Provider Dr. Nafisa Dawkins Other Provider Dr. Nafisa Martinez Other Provider Dr. Earnestine Cruz Other Provider Unavailable Dr. Javier Ventura Other Provider UnavailDr. Javier Elliott Other Provider Unavailable MD Maverick Miller Other Provider Dr. Erickson Kramer Other Provider Dr. Maryan Gamez Other Provider Dr. Ramón Cortez Other Provider Dr. Delaney Garcia Other Provider Dr. Jose Ruth Other Provider Dr. Ricardo Hassan Other Provider Dr. Sagar Ramirez Other Provider Dr. Nilo Siddiqui Other Provider Dr. Jeanie Hallman Other Provider Dr. Maxwell Dennis Other Provider Ismael CLINICAL PSYCHIATRIST, CLINICAL PSYCHIATRIST-C Lisy Other Provider Rich Conde Other Provider Unavailable Dr. Abiodun He Attending Provider Dr. Ricardo Hassan Attending Provider Dr. Abiodun He Admit Provider Dr. Abiodun He Other Provider Noe CHARLES, MEENAKSHI Mahoney Attending Provider Dr. Tl Tomas Attending Provider ABIODUN HE MD Primary Care Physician ELYSE WEISS DO Attending Unavailable ABIODUN HE MD Primary Care Unavailable Manda Mercado MD Primary Care Provider Dr. 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 ARCHITECT, Yarizta Unavailable Dangelo Lee MD Primary Care Provider Lorne, Dangelo Attending Unavailable [place], Dangelo Primary Care Unavailable [place], Dangelo Referring Unavailable Lorne, Dangelo Attending Unavailable [place], Dangelo Primary Care Unavailable Lorne, Dangelo Referring Unavailable [place], Dangelo Referring Unavailable [place], Dangelo Consulting Unavailable Lorne, Dangelo Primary Care Unavailable Damien Cardoso Attending Unavailable Abiodun He Attending Unavailable Abiodun He Consulting Unavailable [place], Dangelo Primary Care Unavailable Lorne, Dangelo Referring Unavailable Velásquez, Shannan Attending Unavailable Lorne, Dangelo Primary Care Unavailable Lorne, Dangelo Primary Care Unavailable Velásquez, Shannan Attending Unavailable [place], Dangelo Attending Unavailable [place], Dangelo Referring Unavailable Lorne, Dangelo Primary Care Unavailable Lorne, Dangelo Primary Care Unavailable Velásquez, Shannan Attending Unavailable [place], Dangelo Primary Care Unavailable Fanny Renee Attending Unavailable [place], Dangelo Attending Unavailable [place], Dangelo Primary Care Unavailable Lorne, Dangelo Referring Unavailable Lorne, Dangelo Attending Unavailable Lorne, Dangelo Referring Unavailable Lorne, Dangelo Primary Care Unavailable [place], Dangelo Attending Unavailable Lorne, Dangelo Primary Care Unavailable Lorne, Dangelo Referring Unavailable Lorne, Dangelo Primary Care Unavailable [place], Dangelo Referring Unavailable Abiodun He Attending Unavailable [place], Dangelo Attending Unavailable [place], Dangelo Primary Care Unavailable [place], Dangelo Referring Unavailable Shannan Velásquez Attending Unavailable [place], Dangelo Primary Care Unavailable [place], Dangelo Primary Care Unavailable Nadia Hernandez Attending Unavailable [place], Dangelo Referring Unavailable Lorne, Dangelo Primary Care Unavailable Damien Cardoso Attending Unavailable BENTON ALELN Referring Unavailable LORNE, DANGELO G Primary Care Unavailable CAROL ANN WEBSTER Attending Unavail able LORNE, DANGELO G Primary Care Unavailable ABIODUN LI Attending Unava ilable LORNE, DANGELO G Primary Care Unavailable LORNE, DANGELO G Primary Care Unavailable FALLON LARSON Attending Unavail able FALLON LARSON Attending Unavail able MITCH MERCADOOPHER B Primary Care Unavailab KAITLYN DanielsER B Primary Care Unavailab ABIODUN Browne Referring Unava ilable YANETH MONTENEGRO Attending Unavailable PARKER, CHRISTOPHER B Primary Care Unavailab le DEE COWART Attending Unavailable ABIODUN LI Referring Unava ilable FALLON LARSON Attending Unavail able PARKER, CHRISTOPHER B Primary Care Unavailab le FALLON LARSON Attending Unavail able LORNE, DANGELO G Primary Care Unavailable NEYHART JULISSA FALLON Referring Unavail able LORNE, DANEGLO G Primary Care Unavailable LORNE, DANGELO G Primary Care Unavailable TANVIR TORRES Attending Unavailable KACPURA, DEE Referring Unavailable LORNE, DANGELO G Primary Care Unavailable BENTON ALLEN Referring Unavailable LORNE, DANGELO G Primary Care Unavailable LORNE, DANGELO G Primary Care Unavailable NAJM, IMAD Admitting Unavailable GAITANFAHAD R Attending Unavailable DANGELO LEE Primary Care Unavailable CAROL ANN WEBSTER Attending Unavail able DANGELO LEE Primary Care Unavailable NOLA GARZA Attending Unavaila ble DANGELO LEE Primary Care Unavailable BENTON ALLEN Attending Unavailable BENTON ALLEN Attending Unavailable DANGELO LEE Primary Care Unavailable DANGELO LEE Referring Unavailable Allergies Allergy Classification Reported Allergen(s) Allergy Type Date of Onset Reaction(s) Facility Banana Extract (1 source) Banana Extract Drug Allergy 02-21-20 12 GI Upset [facility] Work Phone: [phone] Corticosteroids (1 source) predniSONE Drug Allergy 06-28-20 Other: See Comments [facility] Work Phone: egg extract (1 source) egg extract Drug Allergy 02-21-20 12 GI Upset [facility] Lactose (1 source) Lactose Drug Allergy 02-21-20 12 Intolerance [facility] (20 sources) Banana Extract; Translations: [BANANA] Drug Allergy 02-21-20 12 GI Upset [facility] Work Phone: [phone] (20 sources) egg extract; Translations: [EGG] Drug Allergy 02-21-20 12 GI Upset [facility] Work Phone: [phone] (20 sources) Lactose; Translations: [LACTOSE] Drug Allergy 02-21-20 12 Intolerance [facility] Work Phone: [phone] (20 sources) predniSONE; Translations: [PREDNISONE] Drug Allergy 06-28-20 Other: See Comments [facility] Work Phone: [phone] (5 sources) ENVIRONMENTAL [Other] Propensity to adverse reactions 08-27-20 05 [facility] Work Phone: [phone] (2 sources) Food Allergies: Uncoded; Translations: [Food Allergies: Uncoded] Propensity to adverse reactions 12-21-19 24 Abd cramps/diarrhe a [facility] (1 source) egg extract Drug Allergy 03-13-20 [facility] (1 source) Lactose Drug Allergy 03-13-20 [facility] (1 source) Milk Drug allergy (disorder) 03-13-20 [facility] (1 source) predniSONE Drug Allergy 03-13-20 [facility] Medications Current Medications Medication Drug Class(es) Dates Sig (Normalized) Sig (Original) acetaminophen 500 mg oral tablet (14 sources) Start: 12-14-2023 take 500 mg by mouth every six hours as needed Acetaminophen Active 500 MG PO EVERY 6 HOURS NEEDED 0 December 14, 2023 12:00am End: 04-18-2024 take 2 tablets by mouth every eight hours as needed acetaminophen (TYLENOL) 500 mg tablet Take 1,000 mg by mouth every 8 hours as needed for pain. 04/18/2024 Discontinued Comment on above: Take 1,000 mg by hiram th every 8 hours as needed for pain. aspirin 81 mg chewable tablet (18 sources) Platelet Aggregation Inhibitor, Nonsteroidal Anti-inflammatory Drug Start: 11-01-2023 take 1 tablet by mouth once daily Aspirin Active 1 TABLET PO DAILY November 01, 2023 1:00am End: 12-28-2023 take 1 tablet by mouth once daily at breakfast aspirin, enteric coated (ASPIRIN, ENTERIC COATED) 81 mg EC tablet Take 81 mg by mouth daily with breakfast. 12/28/2023 Discontinued (Discontinued by another Health Care Provider) Comment on above: Take 81 mg by mouth once daily. Take 81 mg by mouth daily with breakfast. atorvastatin 80 mg oral tablet (19 sources) HMG-CoA Reductase Inhibitor Start: 4 End: take 1 tablet by mouth once daily atorvastatin (LIPITOR) 80 mg tablet Take 1 tablet by mouth once daily. 90 tablet 1 11/04/2023 05/02/2024 Active Comment on above: Take 80 mg by mouth once daily. Take 1 tablet by hiram th once daily. 12 hr buPROPion hydrochloride 150 mg extended release oral tablet (15 sources) Aminoketone Start: End: take 1 tablet by mouth twice daily buPROPion SR (WELLBUTRIN SR) 150 mg 12 hr tablet Take 1 tablet by mouth two times a day. 60 tablet 2 03/26/2025 06/24/2025 Active busPIRone hydrochloride 7.5 mg oral tablet (20 sources) Start: busPIRone (BUSPAR) 7.5 mg tablet 02/14/2025 Active Start: 01-08-2025 take 1 tablet by hiram th every twelve hours busPIRone (BUSPAR) 5 mg tablet Take 1 tablet by mouth every 12 hours. 01/08/2025 Active 24 hr desvenlafaxine succinate 100 mg extended release oral tablet (20 sources) Serotonin and Norepinephrine Reuptake Inhibitor Start: 02-08-2025 desvenlafaxine ER (PRISTIQ) 100 mg 24 hr tablet 02/08/2025 Active Start: 09-18-2024 take 1 tablet by hiram th once daily desvenlafaxine ER (KHEDEZLA) 50 mg 24 hr tablet take 1 tablet by mouth once daily . START AFTER 7 DAY COURSE OF 25MG 09/18/2024 Active doxycycline hyclate 100 mg oral tablet (3 sources) Tetracycline-class Drug Start: 12-16-2023 End: 12-23-2023 take 1 tablet by mouth twice daily doxycycline (VIBRA-TABS) 100 mg tablet Take 1 tablet by mouth two times a day for 7 days. 14 tablet 0 12/16/2023 12/23/2023 Active Comment on above: Take 1 tablet by hiram th two times a day for 7 days. erythromycin 0.005 mg/mg ophthalmic ointment (1 source) Macrolide, Macrolide Antimicrobial Start: 10-08-2023 End: 10-15-2023 erythromycin (ROMYCIN) 5 mg/gram (0.5 %) ophthalmic ointment Indications: Bacterial conjunctivitis Use 1 application in the left eye four times daily for 7 days. 1 g 1 10/08/2023 10/15/2023 Active Comment on above: Use 1 application in the left eye four times daily for 7 days. hydrOXYzine hydrochloride 25 mg oral tablet (13 sources) Antihistamine Start: 01-23-2025 hydrOXYzine HCl (ATARAX) 25 mg tablet 01/23/2025 Active ibuprofen 200 mg oral capsule (1 source) Nonsteroidal Anti-inflammatory Drug Start: 12-21-2023 take 200 mg by mouth every six hours Ibuprofen Active 200 MG PO EVERY 6 HOURS December 21, 2023 12:00am INV VITAMIN D3 4000 UNIT OR [place]ACEBO (IRB [id number]) CAPSULE (20 sources) Start: 12-14-2023 INV VITAMIN D3 4000 UN[address]BO (IRB [id number]) CAPSULE 12/14/2023 Active Start: 12-14-2023 INV VITAMIN D3 4000 UN[address] OR [address]BO (IRB [id number]) CAPSULE iv contrast (will be provided with radiology test) (1 source) Start: 02-02-2024 End: 02-03-2024 iv contrast (will be provided with radiology test) MRV Brain Inject, intravenously, once for 1 dose. No IV access, insert saline lock prior to the beginning of sedation, infusion, injection of imaging exam. Discontinue saline lock post exam. If Pt. has a central line or IVAD, may access for administration according to line specific nursing protocol. Once exam is complete flush line and de-access according to line specific nursing protocol in the MR contrast administration guidelines link. 1 Each 0 02/02/2024 02/03/2024 Active lansoprazole 30 mg delayed release oral capsule (20 sources) Proton Pump Inhibitor Start: 10-22-2022 End: 05-28-2024 take 1 capsule by mouth once daily before breakfast lansoprazole (PREVACID) 30 mg capsule Take 1 capsule by mouth daily before breakfast. 1/2 hr before meal. 90 capsule 1 11/04/2023 05/02/2024 Active Start: 10-07-2020 End: 09-01-2022 take 1 capsule by mouth once daily before breakfast lansoprazole (PREVACID) 30 mg capsule Indications: Chest pain, unspecified type Take 1 capsule by mouth daily before breakfast. 1/2 hr before meal. 30 capsule 2 10/07/2020 09/01/2022 Discontinued (Course of therapy completed) Comment on above: Take 1 capsule by [facility] daily before breakfast. 1/2 hr before meal. loratadine 10 mg oral tablet (20 sources) Start: 024 loratadine (CLARITIN) 10 mg tablet 12/14/2023 Active MULTIVITAMIN ORAL (20 sources) MULTIVITAMIN ORA L Take by mouth. Active naltrexone hydrochloride 50 mg oral tablet (15 sources) Opioid Antagonist Start: 025 End: 025 take 1 tablet by mouth once daily naltrexone 50 mg tablet Take 1 tablet by mouth once daily. 30 tablet 04/23/2025 07/22/2025 Active nitrofurantoin, macrocrystals 25 mg / nitrofurantoin, monohydrate 75 mg oral capsule (1 source) Nitrofuran Antibacterial Start: End: take 1 capsule by mouth twice daily nitrofurantoin monohydrate and macrocrystal (MACROBID) 100 mg capsule Take 1 capsule by mouth two times a day for 5 days. 10 capsule 02/28/2025 03/05/2025 Active pantoprazole 40 mg delayed release oral tablet (20 sources) Proton Pump Inhibitor Start: take 1 tablet by mouth once pantoprazole DR (PROTONIX) 40 mg tablet Take 1 tablet by mouth every afternoon. 01/10/2024 Active phentermine hydrochloride 37.5 mg oral tablet (9 sources) Sympathomimetic Amine Anorectic Start: End: take 1 tablet by mouth once daily before breakfast Phentermine HCl 37.5 mg tablet Indications: Class 3 severe obesity due to excess calories with serious comorbidity and body mass index (BMI) of 45.0 to 49.9 in adult ([facility]) Take 1 tablet by mouth daily before breakfast for 90 days. Patient should start on July 17, 2024. 90 tablet 07/17/2024 10/15/2024 Active polyethylene glycol 3350 82166 mg powder for oral solution (20 sources) Osmotic Laxative Start: polyethylene glycol 3350 (MIRALAX) 17 gram/dose powder 12/14/2023 Active psyllium 3400 mg powder for oral suspension (20 sources) Start: psyllium husk (METAMUCIL) 3.4 gram/5.4 gram powd 12/14/2023 Active tirzepatide, weight loss (ZEPBOUND) 5 mg/0.5 mL pen injector (1 source) Start: End: tirzepatide, weight loss (ZEPBOUND) 5 mg/0.5 mL pen injector Indications: Class 3 severe obesity due to excess calories with serious comorbidity and body mass index (BMI) of 45.0 to 49.9 in adult ([facility]) Inject 5 mg subcutaneously one time a week for 28 days. Patient should start on May 11, 2024. 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 180 tablet 3 02/01/2025 02/01/2026 Active Start: 02-02-2024 End: 02-01-2025 take 1 tablet by mouth once daily, then take 1 tablet by mouth twice daily topiramate (TOPAMAX) 25 mg tablet Take by mouth. One tablet daily for a week; then one tablet twice daily for a week; then one table three times daily for a week; then two tablets twice daily thereafter. 120 tablet 11 02/02/2024 02/01/2025 Discontinued (Dosage adjustment) Completed/Discontinued Medications Medication Drug Class(es) Dates Sig [...] needed 30 tablet 0 03/18/2021 10/22/2022 Discontinued Comment on above: [facility]. Take 1 tablet by mouth three times a day for 10 days as needed clobetasol propionate 0.0005 mg/mg topical ointment (20 sources) Corticosteroid Start: 06-28-2019 End: 06-25-2024 clobetasol (TEMOVATE) 0.05 % ointment Apply 1 application to affected area twice daily. TO AFFECTED AREA. 45 g 10/22/2022 06/25/2024 Discontinued Comment on above: Apply 1 application to affected area twice daily. TO AFFECTED AREA. DULoxetine 30 mg delayed release oral capsule (1 source) Serotonin and Norepinephrine Reuptake Inhibitor Start: 10-07-2020 End: 09-01-2022 take 1 capsule by mouth once daily DULoxetine (CYMBALTA) 30 mg capsule Indications: Fibromyalgia Take 1 capsule by mouth once daily. 30 capsule 5 10/07/2020 09/01/2022 Discontinued (Discontinued by Patient) Comment on above: Take 1 capsule by mo [facility] once daily. fluticasone propionate 0.05 mg/actuat metered dose nasal spray (9 sources) Corticosteroid Start: 12-28-2023 End: 06-25-2024 take 2 spray(s) by mouth once daily fluticasone (FLONASE) 50 mcg/actuation nasal spray Indications: Popping of right ear Use 2 Sprays in each nostril once daily. Rinse mouth after use. 16 g 1 12/28/2023 06/25/2024 Discontinued gabapentin 300 mg oral capsule (14 sources) Anti-epileptic Agent Start: 11-05-2023 End: 12-07-2023 gabapentin (NEURONTIN) 300 mg capsule Indications: Post herpetic neuralgia Take 1 tablet PO daily x 1 week, then every other day x 1 week, then stop. 11 capsule 0 11/05/2023 12/07/2023 Discontinued (Course of therapy completed) Start: 10-21-2023 End: 12-12-2023 take 300 mg by mouth every twelve hours Gabapentin Discontinued 300 MG PO Q12H October 21, 2023 1:00am December 12, 2023 11:38pm Start: 10-08-2023 End: 11-07-2023 take 1 capsule by mouth twice daily gabapentin (NEURONTIN) 300 mg capsule Indications: Post herpetic neuralgia Take 1 capsule by mouth two times a day for 30 days. 60 capsule 0 10/08/2023 11/05/2023 Discontinued Comment on above: Take 1 capsule by [facility] two times a day for 30 days. Take 1 tablet PO ely ly x 1 week, then every other day x 1 week, then stop. omeprazole 20 mg delayed release oral tablet (4 sources) Proton Pump Inhibitor take 1 tablet by mouth once daily Omeprazole Magnesium (PRILOSEC OTC) 20 mg tablet Take 20 mg by mouth once daily. 0 Active Comment on above: Take 20 mg by mouth once daily. oxyCODONE hydrochloride 5 mg oral tablet (15 sources) Opioid Agonist Start: End: take 5 mg by mouth every six hours as needed Oxycodone Discontinued 5 MG PO EVERY 6 HOURS NEEDED 10 December 14, 2023 December 21, 2023 9:30am Comment on above: Take 5 mg by mouth e very 6 hours as needed for pain. tirzepatide, weight loss (ZEPBOUND) 2.5 mg/0.5 mL pen injector (8 sources) Start: End: tirzepatide, weight loss (ZEPBOUND) 2.5 mg/0.5 mL pen injector Indications: Class 3 severe obesity due to excess calories with serious comorbidity and body mass index (BMI) of 45.0 to 49.9 in adult ([facility]) Inject 2.5 mg subcutaneously one time a week. 2 mL 01/14/2025 03/18/2025 Discontinued Start: 01-14-2025 tirzepatide, w eight loss (ZEPBOUND) 2.5 mg/0.5 mL pen injector Indications: Class 3 severe obesity due to excess calories with serious comorbidity and body mass index (BMI) of 45.0 to 49.9 in adult (HCC) Inject 2.5 mg subcutaneously one time a week. 2 mL 01/14/2025 Active Start: 01-14-2025 End: 02-13-2025 tirzepatide, weight loss (ZE PBOUND) 2.5 mg/0.5 mL pen injector Indications: Class 3 severe obesity due to excess calories with serious comorbidity and body mass index (BMI) of 45.0 to 49.9 in adult (HCC) Inject 2.5 mg subcutaneously one time a week. 2 mL 01/14/2025 02/13/2025 Active Start: 01-14-2025 End: 02-13-2025 tirzepatide, weight loss (ZE PBOUND) 2.5 mg/0.5 mL pen injector Indications: Class 3 severe obesity due to excess calories with serious comorbidity and body mass index (BMI) of 45.0 to 49.9 in adult Inject 2.5 mg subcutaneously one time a week. 2 mL 01/14/2025 02/13/2025 Active Start: 04-13-2024 End: 04-18-2024 tirzepatide, weight loss (ZE PBOUND) 2.5 mg/0.5 mL pen injector Indications: Class 3 severe obesity due to excess calories with serious comorbidity and body mass index (BMI) of 45.0 to 49.9 in adult (HCC) Inject 2.5 mg subcutaneously one time a week. 2 mL 04/13/2024 04/18/2024 Discontinued tiZANidine 4 mg oral tablet (1 source) Central alpha-2 Adrenergic Agonist Start: 03-17-2021 End: 09-01-2022 take 2 mg by mouth every eight hours as needed tiZANidine (ZANAFLEX) 4 mg tablet Take 0.5 tablets by mouth every 8 hours as needed (muscle spasms). 10 tablet 0 03/17/2021 09/01/2022 Discontinued (Course of therapy completed) Comment on above: Take 0.5 tablets by mouth every 8 hours as needed (muscle spasms). valACYclovir 1000 mg oral tablet (13 sources) Herpesvirus Nucleoside Analog DNA Polymerase Inhibitor, Herpes Simplex Virus Nucleoside Analog DNA Polymerase Inhibitor, Herpes Zoster Virus Nucleoside Analog DNA Polymerase Inhibitor Start: 09-27-2023 End: 10-21-2023 Valacyclovir (Valtrex) 1 gram tablet Discontinued 1000 MG PO Q8H September 27, 2023 1:00am October 21, 2023 10:01pm Start: 10-22-2022 End: 04-20-2023 take 1 tablet by mouth once daily valACYclovir (VALTREX) 500 mg tablet Take 1 tablet by mouth once daily. 90 tablet 1 10/22/2022 04/20/2023 Active valACYclovir (VA LTREX) 1 gram tablet Take 1,000 mg by mouth three times a day. Patient ran out of medication a couple days ago 0 Active Comment on above: Take 1 tablet by hiram th once daily. Take 1,000 mg by hiram th three times a day. Patient ran out of medication a couple days ago 24 hr venlafaxine 75 mg extended release oral capsule (11 sources) Serotonin and Norepinephrine Reuptake Inhibitor Start: 02-28-2024 End: 09-28-2024 EFFEXOR XR 75 mg 24 hr capsule 02/28/2024 09/28/2024 Discontinued Start: 01-10-2024 End: 05-28-2024 EFFEXOR XR 37.5 mg 24 hr cap marleny 01/10/2024 05/28/2024 Discontinued Problems Active Problems Problem Classification Problem Date Documented Date Episodic/Chronic Acute cerebrovascular disease (4 sources) Cerebrovascular accident; Translations: [Cerebral infarction, unspecified] 10-21-2023 Chronic Anxiety disorders (20 sources) Generalized anxiety disorder; Translations: [Generalized anxiety disorder] Onset: 05-10-2025 11-24-2020 Chronic Biliary tract disease (9 sources) Cholecystitis; Translations: [Cholecystitis, unspecified] Onset: 12-13-2023 12-13-2023 Episodic Cardiac dysrhythmias (2 sources) Postural orthostatic tachycardia syndrome ; Translations: [POTS (postural orthostatic tachycardia syndrome)] 03-12-2025 Chronic Conditions associated with dizziness or vertigo (3 sources) Orthostatic hypotension; Translations: [Dizziness and giddiness] Onset: 04-13-2025 04-08-2025 Episodic Diseases of white blood cells (1 source) Neutropenia; Translations: [Neutropenia, unspecified] Chronic Disorders of lipid metabolism (20 sources) Mixed hyperlipidemia; Translations: [Mixed hyperlipidemia] Onset: 11-23-2023 11-23-2023 Chronic Epilepsy; convulsions (4 sources) Seizure; Translations: [Unspecified convulsions] Onset: 06-02-2025 04-15-2025 Episodic Esophageal disorders (20 sources) Gastroesophageal reflux disease; Translations: [Gastro-esophageal reflux disease without esophagitis] Onset: 06-02-2025 06-28-2019 Chronic Headache; including migraine (9 sources) Migraine; Translations: [Migraine, unspecified, not intractable, without status migrainosus] Onset: 08-17-2024 11-05-2023 Chronic Headache; including migraine (1 source) Analgesic overuse headache; Translations: [Drug-induced headache, not elsewhere classified, not intractable] 02-02-2024 Episodic Inflammation; infection of eye (except that caused by tuberculosis or sexually transmitteddisease) (1 source) Bacterial conjunctivitis; Translations: [Unspecified conjunctivitis] 10-08-2023 Episodic Influenza (1 source) Influenza-like illness; Translations: [Influenza due to unidentified influenza virus with other respiratory manifestations] Episodic Miscellaneous mental health disorders (1 source) Conversion disorder with seizures or convulsions; Translations: [Functional neurological symptom disorder with attacks or seizures] Onset: 06-05-2025 Chronic Mood disorders (2 sources) Major depressive disorder, recurrent, moderate; Translations: [Major depressive disorder, single episode, moderate] Onset: 01-01-2025 Chronic Nonspecific chest pain (20 sources) Chest pain; Translations: [Chest pain, unspecified] Onset: 11-07-2023 10-07-2020 Episodic Nutritional deficiencies (20 sources) Vitamin D deficiency; Translations: [Vitamin D deficiency, unspecified] Onset: 10-25-2022 Chronic Other aftercare (1 source) Long-term current use of drug therapy; Translations: [Other separator tender (current) drug therapy] 01-14-2025 Episodic Other aftercare (1 source) Other separator tender (current) drug therapy; Translations: [Encounter for long-term (current) use of medications] Onset: 06-12-2025 Episodic Other bone disease and musculoskeletal deformities (1 source) Costal chondritis; Translations: [Chondrocostal junction syndrome [Tietze]] Episodic Other circulatory disease (2 sources) Postural orthostatic tachycardia syndrome ; Translations: [Postural orthostatic tachycardia syndrome (POTS)] Onset: 04-08-2025 03-12-2025 Episodic Other connective tissue disease (20 sources) Fibromyalgia; Translations: [Fibromyalgia] 06-28-2019 Episodic Other connective tissue disease (3 sources) Neurological symptom; Translations: [Unspecified symptoms and signs involving the nervous system] 11-04-2023 Episodic Other connective tissue disease (1 source) Other symptoms and signs involving the nervous system; Translations: [Transient neurological symptoms] Onset: 12-02-2023 Episodic Other connective tissue disease (1 source) Fibromyalgia; Translations: [Fibromyalgia] Onset: 06-02-2025 Episodic Other ear and sense organ disorders (1 source) Otalgia, right ear; Translations: [Otalgia, unspecified] 12-28-2023 Episodic Other ear and sense organ disorders (1 source) Popping sensation in ear; Translations: [Other specified disorders of right ear] 12-28-2023 Episodic Other ear and sense organ disorders (1 source) Tinnitus of vascular origin; Translations: [Pulsatile tinnitus, unspecified ear] 02-02-2024 Episodic Other inflammatory condition of skin (20 sources) Scalp psoriasis; 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, unspecified] Onset: 10-22-2022 10-22-2022 Chronic Other liver diseases (20 sources) Steatosis of liver; Translations: [Fatty (change of) liver, not elsewhere classified] Onset: 12-16-2023 12-16-2023 Chronic Other liver diseases (2 sources) Fatty (change of) liver, not elsewhere classified; Translations: [Other chronic nonalcoholic liver disease] Onset: 12-16-2023 12-21-2023 Chronic Other liver diseases (1 source) Aspartate aminotransferase serum level raised; Translations: [Elevated AST (SGOT)] Episodic Other lower respiratory disease (3 sources) Productive cough ; Translations: [Productive cough] 12-16-2023 Episodic Other nervous system disorders (1 source) Velásquez's palsy; 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] Onset: 11-23-2023 Episodic Other nervous system disorders (1 source) Skin sensation disturbance; Translations: [Unspecified disturbances of skin sensation] 04-08-2025 Episodic Other nervous system disorders (1 source) Unspecified disturbances of skin sensation; Translations: [Disturbance of skin sensation] Onset: 04-08-2025 Episodic Other nutritional; endocrine; and metabolic disorders (20 sources) Intolerance to lactose; Translations: [Lactose intolerance, unspecified] Onset: 07-03-2019 07-03-2019 Chronic Other nutritional; endocrine; and metabolic disorders (10 sources) Morbid obesity; Translations: [Morbid (severe) obesity due to excess calories] Onset: 10-22-2022 10-22-2022 Chronic Other nutritional; endocrine; and metabolic disorders (20 sources) Severe obesity; Translations: [Morbid (severe) obesity due to excess calories] Onset: 10-22-2022 11-23-2023 Chronic Other nutritional; endocrine; and metabolic disorders (4 sources) Morbid (severe) obesity due to excess calories; Translations: [Morbid obesity] Onset: 11-23-2023 12-21-2023 Chronic Other nutritional; endocrine; and metabolic disorders (3 sources) Body mass index (BMI) 45.0-49.9, adult; Translations: [Class 3 severe obesity due to excess calories with serious comorbidity and body mass index (BMI) of 45.0 to 49.9 in adult (HCC)] Onset: 11-23-2023 Chronic Other nutritional; endocrine; and metabolic disorders (1 source) Insulin resistance; Translations: [Insulin resistance] 01-14-2025 Chronic Other skin disorders (20 sources) Lichen sclerosus et atrophicus; Translations: [Circumscribed scleroderma] Onset: 02-21-2012 02-21-2012 Chronic Residual codes; unclassified (1 source) Acquired absence of other specified parts of digestive tract; Translations: [Other acquired absence of organ] 12-21-2023 Episodic Syncope (4 sources) Loss of consciousness; Translations: [Syncope and collapse] Onset: 04-15-2025 04-08-2025 Episodic Transient cerebral ischemia (2 sources) Cerebral ischemia; Translations: [Transient cerebral ischemic attack, unspecified] 11-04-2023 Chronic Unclassified (1 source) Personal history of colon polyps, unspecified; Translations: [Personal history of colon polyps, unspecified] Onset: 11-20-2024 Unclassified (1 source) Class 3 severe obesity due to excess calories with serious comorbidity and body mass index (BMI) of 45.0 to 49.9 in adult; Translations: [Class 3 severe obesity due to excess calories with serious comorbidity and body mass index (BMI) of 45.0 to 49.9 in adult] Onset: 11-23-2023 Unclassified (1 source) Insulin resistance; Translations: [Insulin resistance] Onset: 01-14-2025 Unclassified (1 source) Class 3 severe obesity due to excess calories with serious comorbidity and body mass index (BMI) of 45.0 to 49.9 in adult (HCC); Translations: [Class 3 severe obesity due to excess calories with serious comorbidity and body mass index (BMI) of 45.0 to 49.9 in adult (HCC)] Onset: 11-23-2023 Past or Other Problems Problem Classification Problem Date Documented Da te Episodic/Chronic Cardiac dysrhythmias (6 sources) Palpitations; Translations: [Palpitations] Onset: 11-23-2023 12-05-2023 Episodic Genitourinary symptoms and ill-defined conditions (4 sources) Dysuria; Translations: [Dysuria] Onset: 02-28-2025 12-21-2023 Episodic Other connective tissue disease (20 sources) Transient neurological symptoms; Translations: [Other symptoms and signs involving the nervous system] Onset: 12-02-2023 12-02-2023 Episodic Other female genital disorders (20 sources) Disorder of female genital system; Translations: [Unspecified condition associated with female genital organs and menstrual cycle] Onset: 03-23-2012 03-23-2012 Episodic Other gastrointestinal disorders (20 sources) Constipation; Translations: [Other constipation] Onset: 07-03-2019 07-03-2019 Episodic Other screening for suspected conditions (not mental disorders or infectious disease) (11 sources) Patient encounter status; Translations: [Encounter for screening mammogram for malignant neoplasm of breast] Onset: 09-03-2024 Episodic Regional enteritis and ulcerative colitis (20 sources) Crohn's disease; Translations: [Crohn's disease, unspecified, without complications] Onset: 08-29-2000 Resolved: 07-03-2019 07-03-2019 Chronic Residual codes; unclassified (20 sources) Past history of procedure; Translations: [Personal history of other medical treatment] Onset: 11-07-2023 11-13-2023 Episodic Urinary tract infections (2 sources) Acute cystitis; Translations: [Acute cystitis without hematuria] Onset: 02-28-2025 02-28-2025 Episodic Viral infection (20 sources) Recurrent herpes simplex labialis; Translations: [Herpesviral vesicular dermatitis] Onset: 10-22-2022 10-22-2022 Episodic Results Test Name Value Interpretation Reference Range Facility [id number] HECT[facility] ([id number]) 1975 F [place] Date Time Provider Department 06/13/25 CAROL ANN WEBSTER NE50MN During your visit today, we recorded the following information about you: Nadia Moses RN 06/13/2025 1:[address] Webster, Pt needs to be except from upcoming jury duty. MELANIA Tam Jennifer, RN 06/13/2025 1:08 PM Signed Letter drafted, routed to [employer] in [employer]. NadiaMELANIA Camara Ailis, PA-C 06/13/2025 1:15 PM Signed Signed. Jennifer Rodriguez PA-C Allergies As of Date: 06/13/2025 Noted Allergy Reaction BANANA 02/21/2012 8 - GI Upset EGGS (EGG) 02/21/2012 8 - GI Upset LACTOSE 02/21/2012 5 - Intolerance PREDNISONE 06/28/2019 14 - Other: See Comments Comments: Black stools Date Reviewed: 06/12/2025 Reviewed by: Maru Smith MA - Fully Assessed Prescriptions as of 06/13/2025 - buPROPion SR (WELLBUTRIN SR) 150 mg 12 hr tablet Take 1 tablet by mouth two times a day. - naltrexone 50 mg tablet Take 1 tablet by mouth once daily. - tirzepatide, weight loss (ZEPBOUND) 5 mg/0.5 mL pen injector Inject 5 mg subcutaneously one time a week. - tirzepatide, weight loss (ZEPBOUND) 7.5 mg/0.5 mL pen injector Inject 7.5 mg subcutaneously one time a week. Patient should start on July 12, 2025. - topiramate (TOPAMAX) 25 mg tablet Take 1 tablet by mouth two times a day. Take along with a 50 mg tablet to make a dose of 75 mg twice daily. - busPIRone (BUSPAR) 7.5 mg tablet Take 7.5 mg by mouth two times a day. - desvenlafaxine ER (PRISTIQ) 100 mg 24 hr tablet - hydrOXYzine HCl (ATARAX) 25 mg tablet Take 12.5 mg by mouth two times a day. - topiramate (TOPAMAX) 50 mg tablet Take 1 tablet by mouth two times a day. - MULTIVITAMIN ORAL Take by mouth. - loratadine (CLARITIN) 10 mg tablet - pantoprazole DR (PROTONIX) 40 mg tablet Take 1 tablet by mouth every afternoon. - INV VITAMIN D3 4000 UNIT OR PLACEBO (IRB [id number]) CAPSULE - polyethylene glycol 3350 (MIRALAX) 17 gram/dose powder - psyllium husk (METAMUCIL) 3.4 gram/5.4 gram powd Problem List As Of Date 06/13/2025 Noted Resolved Lichen sclerosus [L90.0] 02/21/2012 Genital atrophy of female [N94.9] 03/23/2012 Crohn's disease (HCC) [K50.90] 08/29/2000 07/03/2019 Fibromyalgia [M79.7] Gastroesophageal reflux disease without esophag* Other constipation [K59.09] 07/03/2019 Lactose intolerance [E73.9] 07/03/2019 Generalized anxiety disorder [F41.1] Recurrent cold sores [B00.1] 10/22/2022 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] 10/22/2022 Vitamin D insufficiency [E55.9] 10/25/2022 History of cardiovascular stress test [Z92.89] 11/07/2023 Mixed hyperlipidemia [E78.2] 11/23/2023 Transient neurological symptoms [R29.818] 12/02/2023 Fatty liver [K76.0] 12/16/2023 Anxiety [F41.9] 06/02/2025 Depression [F32.A] 06/02/2025 Migraine [G43.909] 06/02/2025 IBS (irritable bowel syndrome) [K58.9] 06/02/2025 Obesity, Class II, BMI 35-39.9 [E66.812] 06/05/2025 Functional neurological symptom disorder with a*06/05/2025 Hypokalemia [E87.6] 06/05/2025 Letter Text Encounter Status:Closed by JENNIFER RODRIGUEZ on 06/13/25 [facility] CNOVon 06-12-2025 CNOV Office Visit (OBGYWM ) -- HECTOR LEON ([id number]) 1975 F [place] Date Time Provider Department 06/12/25 2:00 PM FALLON LARSON OBGISSEL During your visit today, we recorded the following information about you: Pulse Blood pressure Weight 97/minute 120/82 93 kg Fallon Larson MD 06/12/2025 3:25 PM Signed Some documentation from previous visit of 01/14/25 was copied and pasted, documentation has been reviewed and edited as necessary for today's visit. Patient Summary: Hector is a 50 year old Female who presents for follow-up evaluation of obesity/weight management to treat and prevent related co-morbidities. In our previous visits we have discussed lifestyle intervention including a nutrition recommendations and physical activity optimization. Her last office visit was 5 month ago. Assessment/plan from last visit: -no further phentermine unless cleared by cardiology -discussed stress and lack of sleep and impact on weight and hunger hormones -BACK TO BASICS and tracking food. More whole foods. - continue vit D supplement - Continue protonix for GERD - taking topiramate by PCP for migraines - discussed routine exercise and impact on weight and weight maintenance - discussed increasing protein aim for 90-150g - Will order zepbound- PA needed. If not approved will do naltrexone/buproprion possible metformin (first if indicated then add other two) Interval History PT specifies the following items as new or significant updates since the last appointment: -started Zepbound 4 weeks ago and continued with buproprion/naltrexone- happy with results of zepbound as she was up to 216lbs due to stress eating. -was recently admitted with ?? Seizure like activity but EEG was reassuring - Reports a positive response to Zepbound, noting significant appetite suppression and a return to previous weight of 205 lbs. - Denies any side effects from Zepbound, such as constipation, nausea, vomiting, or diarrhea. - Currently taking naltrexone and bupropion, which she feels are beneficial for emotional eating and anxiety/depression management. - Reports improved dietary habits, including increased consumption of healthy snacks like celery, carrots, and hummus, and a reduction in carbohydrate intake at breakfast. - Maintains adequate hydration and continues to take a vitamin D supplement. - Currently under the care of a psychiatrist and has a scheduled appointment with a psychologist on the . - Expresses indecisiveness and difficulty making decisions, which she attributes to her mental health conditions. - Reports excessive sleep, which she believes is related to heightened depression. - Experiencing significant stress due to family dynamics, particularly involving her daughter and parents, which she believes has exacerbated her symptoms and contributed to weight gain and health decline. - Recently diagnosed with non-epileptic seizures and is under the care of a psychiatrist. - Reports episodes of facial droop and lightheadedness, which she believes are related to her seizure disorder. - Recently hospitalized for three days for seizure monitoring, during which no abnormal brain activity was detected. Weight loss since last vist: 9 lb Total weight lost: 44 lbs - Last Wt 06/12/25 : 92.987 kg (205 lb) got up to 216lb- zepbound started 4 weeks ago 01/14/25 : 94.3 kg (208 lb) wellbutrin/naltrexone added February 2025 09/28/24 : 91.6 kg (202 lb) phentermine stopped- syncopal episodes 06/25/24 : 102.9 kg (227 lb) 05/28/24 : 106.6 kg (235 lb) 04/10/24 : 112.9 kg (249 lb) Date: 04/10/2024 249 lb BMI: 47.05 5% weight loss = 236 lbs, 10% weight loss = 224 lbs Adjusted ideal body weight: 67.3 kg (148 lb 4.7 oz) Anti-obesity medications: Benefit:makes her stop thinking about food, doesn't feel hungry Adverse effects: none Wellbutrin/Naltrexone Anti-obesity medications: Topiramate. 50 mg bid Benefit:was started for migraines Adverse effects: none AOM Medications: Topiramate by Neurologist Weight promoting medications: Effexor 75mg changed to Desvenlafaxine Previous Diet (initial appointment): Awake - 7:30 B - coffee azerbaijani sweet cream, apple juice (8oz) [place] wrap taco velásquez, watermelon juice (8oz) , oatmeal (packet), toast, blueberries , turkey sausage , hash browns S - fruit L - chipolte bowl chicken w/ guac, apple/pecan salad w/ chicken , chicken wrap, almonds, pretzels,pizza, S - halo oranges D - tilapia, brown rice spag, carrots, ludwin, garlic bread , beats, beans, cucumbers, veggie pizza slices, cheesy bread , cream cheese ragoons S - peach cobbler blizzard sometimes , sweets Fluids: coffee juice, stopped soda, 100 oz water per day Bedtime - 11:30pm Quality of diet: 24hr recall suggests healthy diet. Characterization of diet:Unstructured, unhealthy sna (more content not included)... [facility]NE[facility] -- HECTOR LEON ([id number]) 1975 F [place] Date Time Provider Department 06/11/25 LISY FERMIN NE50MN During your visit today, we recorded the following information about you: Lisy Fermin LISW 06/11/2025 9:07 AM Signed FNS Patient Management Conference Follow Up SERVICE DATE: 06/11/2025 SERVICE TIME: 9:04 AM Patient management conference was completed secondary to diagnosis of Functional Non-epileptic Seizures (RADHA) made during EMU admission on 06/02/25. Post-PMC was held this date for discussion regarding recommendations for treatment and provision of appropriate appointments/resources. Individuals participating in PMC include: Dr. Nola Garza, Apryl Harden, [facility], and KARAN Mason Recommendations for treatment include: Engage in NBT program, individual sessions and Establish with provider for trauma treatment Interventions: Patient scheduled for FNS program, initial appointment: to be scheduled Impression: Patient well engaged on phone call. She notes of some concern with comprehension and doing the workbook. She is agreeable to continue forward with treatment. SIGNATURE: KARAN Mason PATIENT NAME: Hector Leon DATE: 06/11/2025 TIME: 9:04 AM PAGER/CONTACT #: [phone] Allergies As of Date: 06/11/2025 Noted Allergy Reaction BANANA 02/21/2012 8 - GI Upset EGGS (EGG) 02/21/2012 8 - GI Upset LACTOSE 02/21/2012 5 - Intolerance PREDNISONE 06/28/2019 14 - Other: See Comments Comments: Black stools Date Reviewed: 06/05/2025 Reviewed by: Kristin Viveros, consumer safety inspector - Fully Assessed Reason for Visit: Social Work Services [507] Prescriptions as of 06/11/2025 - naltrexone 50 mg tablet Take 1 tablet by mouth once daily. - tirzepatide, weight loss (ZEPBOUND) 2.5 mg/0.5 mL pen injector Inject 2.5 mg subcutaneously one time a week. - topiramate (TOPAMAX) 25 mg tablet Take 1 tablet by mouth two times a day. Take along with a 50 mg tablet to make a dose of 75 mg twice daily. - buPROPion SR (WELLBUTRIN SR) 150 mg 12 hr tablet Take 1 tablet by mouth two times a day. - busPIRone (BUSPAR) 7.5 mg tablet Take 7.5 mg by mouth two times a day. - desvenlafaxine ER (PRISTIQ) 100 mg 24 hr tablet - hydrOXYzine HCl (ATARAX) 25 mg tablet Take 12.5 mg by mouth two times a day. - topiramate (TOPAMAX) 50 mg tablet Take 1 tablet by mouth two times a day. - MULTIVITAMIN ORAL Take by mouth. - loratadine (CLARITIN) 10 mg tablet - pantoprazole DR (PROTONIX) 40 mg tablet Take 1 tablet by mouth every afternoon. 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] 10/22/2022 Vitamin D insufficiency [E55.9] 10/25/2022 History of cardiovascular stress test [Z92.89] 11/07/2023 Mixed hyperlipidemia [E78.2] 11/23/2023 Transient neurological symptoms [R29.818] 12/02/2023 Fatty liver [K76.0] 12/16/2023 Anxiety [F41.9] 06/02/2025 Depression [F32.A] 06/02/2025 Migraine [G43.909] 06/02/2025 IBS (irritable bowel syndrome) [K58.9] 06/02/2025 Obesity, Class II, BMI 35-39.9 [E66.812] 06/05/2025 Functional neurological symptom disorder with a*06/05/2025 Hypokalemia [E87.6] 06/05/2025 Encounter Status:Closed by LISY FERMIN on 06/11/25 [facility] 06-07-2025 [facility] Telephone (NE50MN) -- HECTOR LEON ([id number]) 1975 F [place] Date Time Provider Department 06/07/25 ARON BELTRAN NE50MN During your visit today, we recorded the following information about you: Aron Beltran PA-C 06/07/2025 8:21 AM Signed Epilepsy Center Post Discharge Telephone Call Hector Leon : [phone] This patient was admitted to the EMU from 06/02 through 06/05/25. The patient answered this phone call. Were there any changes to the patient's anti seizure medications while admitted? EPILNOYES: No. Is the patient currently taking their anti seizure medications as prescribed at the time of discharge? She is taking TPM 75 mg BID as prescribed for migraines. Has the patient had any seizures or events since being discharged? Yes. 4 episodes of her episodes that involve face pulling since discharge. Has the patient has any other new health concerns since being discharged? No. Was the patient and/or their support persons aware of the next scheduled follow up appointment? Yes. Appointments for Next 60 Days Date Time Provider Location Dept Phone 06/12/2025 2:00 PM FALLON LARSON [phone] 06/13/2025 11:40 AM CAROL ANN WEBSTER [phone] We discussed rescheduling the follow up appointment, which I will facilitate. Aron Beltran PA-C 06/07/25 8:17 AM Allergies As of Date: 06/07/2025 Noted Allergy Reaction BANANA 02/21/2012 8 - GI Upset EGGS (EGG) 02/21/2012 8 - GI Upset LACTOSE 02/21/2012 5 - Intolerance PREDNISONE 06/28/2019 14 - Other: See Comments Comments: Black stools Date Reviewed: 06/05/2025 Reviewed by: Kristin Viveros, consumer safety inspector - Fully Assessed Reason for Visit: Post-discharge Review [3940] Prescriptions as of 06/07/2025 - naltrexone 50 mg tablet Take 1 tablet by mouth once daily. - tirzepatide, weight loss (ZEPBOUND) 2.5 mg/0.5 mL pen injector Inject 2.5 mg subcutaneously one time a week. - topiramate (TOPAMAX) 25 mg tablet Take 1 tablet by mouth two times a day. Take along with a 50 mg tablet to make a dose of 75 mg twice daily. - buPROPion SR (WELLBUTRIN SR) 150 mg 12 hr tablet Take 1 tablet by mouth two times a day. - busPIRone (BUSPAR) 7.5 mg tablet Take 7.5 mg by mouth two times a day. - desvenlafaxine ER (PRISTIQ) 100 mg 24 hr tablet - hydrOXYzine HCl (ATARAX) 25 mg tablet Take 12.5 mg by mouth two times a day. - topiramate (TOPAMAX) 50 mg tablet Take 1 tablet by mouth two times a day. - MULTIVITAMIN ORAL Take by mouth. - loratadine (CLARITIN) 10 mg tablet - pantoprazole DR (PROTONIX) 40 mg tablet Take 1 tablet by mouth every afternoon. 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] 10/22/2022 Vitamin D insufficiency [E55.9] 10/25/2022 History of cardiovascular stress test [Z92.89] 11/07/2023 Mixed hyperlipidemia [E78.2] 11/23/2023 Transient neurological symptoms [R29.818] 12/02/2023 Fatty liver [K76.0] 12/16/2023 Anxiety [F41.9] 06/02/2025 Depression [F32.A] 06/02/2025 Migraine [G43.909] 06/02/2025 IBS (irritable bowel syndrome) [K58.9] 06/02/2025 Obesity, Class II, BMI 35-39.9 [E66.812] 06/05/2025 Functional neurological symptom disorder with a*06/05/2025 Hypokalemia [E87.6] 06/05/2025 Encounter Status:Closed by ARON BELTRAN on 06/07/25 [facility] 06-05-2025 ALLIED [facility]ALTH HNO ID: [id number] Author: KRISTIN VIVEROS, consumer safety inspector Service: Radiology Author Type: Technologist Type: Allied Health Filed: 06/05/2025 11:35 Note Text: Radiology Service Progress Note PATIENT NAME: Hector Leon DATE OF SERVICE: June 05, 2025 TIME: 11:34 AM PATIENT IDENTITY VERIFICATION COMPLETED USING TWO (2) IDENTIFIERS: Name and Date of confirmed by patient verbally and Name and Date of confirmed by identification band. FALL SCREENING: Has the patient had 2 falls in the last year or 1 fall with injury or currently using an Ambulatory Assistive Device (Walker, Cane, Wheelchair, Crutches, etc.)? Inpatient: Screened on floor PATIENT GENDER DATA: Assigned female at . status: : No status: NO. PATIENT RELEVANT IMPLANT DATA REVIEWED: Yes PATIENT PRESENTS WITH AN IMPLANTABLE OR ATTACHED FIBER ANALYST: No RADIOLOGY DEPARTMENT: MR; Exam(s) Completed: Head: skull base wo/w. Anesthesia: No. Aromatherapy Administered: No PERIPHERAL IV DATA: Inpatient: see LDA documentation SIGNED BY: Kristin Viveros consumer safety inspector June 05, 2025 11:34 AM Normal [facility] Basic metabolic 2000 panelon 06-05-2025 Anion gap [Moles/Vol] 13 mmol/L Normal 8-15 [facility] Comment on above: Order Comment: Speci men Type: BLOOD SPECIMENOrdering Facility: [facility] Address: [address] [place] [address] Performed By: #### 2 4321-2 ####[facility] LABCLIA [id number] [place] [address] [place] Calcium [Mass/Vol] 8.7 mg/dL Normal 8.5-10.2 [facility] Comment on above: Order Comment: Speci men Type: BLOOD SPECIMENOrdering Facility: [facility] Address: [address] [place] [address] Performed By: #### 2 4321-2 ####[facility] LABCLIA [id number] [place] [id number] [place] Chloride [Moles/Vol] 106 mmol/L Normal 98-107 [facility] Comment on above: Order Comment: Speci men Type: BLOOD SPECIMENOrdering Facility: [facility] Address: [address] [place] [address] Performed By: #### 2 4321-2 ####[facility] LABCLIA [id number] [facility] [address] [address] [place] CO2 [Moles/Vol] 21 mmol/L Low 22-30 [facility] Comment on above: Order Comment: Speci men Type: BLOOD SPECIMENOrdering Facility: [facility] Address: [address] [place] [address] Performed By: #### 2 4321-2 ####[facility] LABCLIA [id number] [facility] [address] [address] [place] Creatinine [Mass/Vol] 1.00 mg/dL High 0.58-0.96 [facility] Comment on above: Order Comment: Speci men Type: BLOOD SPECIMENOrdering Facility: [facility] Address: [address] [place] [address] Performed By: #### 2 4321-2 ####[facility] LABIA [id number] [place] [id number] [place] eGFRcr SerPlBld CKD-EPI 2020 70 mL/min/1.73m??? Normal >=60 [facility] Comment on above: Order Comment: Speci men Type: BLOOD SPECIMENOrdering Facility: [facility] Address: [address] [place] [address] Result Comment: Kaur mated Glomerular Filtration Rate (eGFR) is calculated using the 2020 CKD-EPI creatinine equation. This equation utilizes serum creatinine, sex, and age as parameters. The creatinine assay has traceable calibration to isotope dilution-mass spectrometry. Refer to KDIGO guidelines for clinical interpretation. In patients with unstable renal function, e.g. those with acute kidney injury, the eGFR may not accurately reflect actual GFR. Performed By: #### 2 4321-2 ####[facility] LABCLIA [id number] [facility] [address] [place] [address] [place] Glucose [Mass/Vol] 77 mg/dL Normal 74-99 [facility] Comment on above: Order Comment: Speci men Type: BLOOD SPECIMENOrdering Facility: [facility] Address: [address] [place] [id number] Result Comment: The [place] [employer] (ADA) provides guidance for cutoff values for fasting glucose and random glucose. The ADA defines fasting as no caloric intake for at least 8 hours. Fasting plasma glucose results between 100 to 125 mg/dL indicate increased risk for diabetes (prediabetes). Fasting plasma glucose results greater than or equal to 126 mg/dL meet the criteria for diagnosis of diabetes. In the absence of unequivocal hyperglycemia, results should be confirmed by repeat testing. In a patient with classic symptoms of hyperglycemia or hyperglycemic crisis, random plasma glucose results greater than or equal to 200 mg/dL meet the criteria for diagnosis of diabetes. Reference: Standards of Medical Care in Diabetes 2016, [place] [employer]. Diabetes Care. 2016.39(Suppl 1). Performed By: #### 2 4321-2 ####[facility] LABCLIA [id number] [place] [address] [place] Potassium [Moles/Vol] 3.5 mmol/L Low 3.7-5.1 [facility] Comment on above: Order Comment: Speci men Type: BLOOD SPECIMENOrdering Facility: [facility] Address: [address] [place], [place] [address] Performed By: #### 2 4321-2 ####[facility] LABCLIA [id number] [place] [id number] [place] Sodium [Moles/Vol] 140 mmol/L Normal 136-144 [facility] Comment on above: Order Comment: Speci men Type: BLOOD SPECIMENOrdering Facility: [facility] Address: [address] [place], [place] [address] Performed By: #### 2 4321-2 ####[facility] LABCLIA [id number] [place] [id number] [place] Urea nitrogen [Mass/Vol] 18 mg/dL Normal 7-21 [facility] Comment on above: Order Comment: Speci men Type: BLOOD SPECIMENOrdering Facility: [facility] Address: [address] [place] [address] Performed By: #### 2 4321-2 ####[facility] LABCLIA [id number] [place] [address] [place] CBC W Auto Differential pane l (Bld)on 06-05-2025 Basophils (Bld) [#/Vol] 10*3/uL Normal <0.11 [facility] Comment on above: Order Comment: Speci men Type: BLOOD SPECIMENOrdering Facility: [facility] Address: [address] [place] [address] Performed By: #### 5 7021-8 ####[facility] LABCLIA [id number] [place] [address] [place] Basophils/100 WBC (Bld) 0.4 % Normal [facility] Comment on above: Order Comment: Speci men Type: BLOOD SPECIMENOrdering Facility: [facility] Address: [address] [place] [address] Performed By: #### 5 7021-8 ####[facility] LABCLIA [id number] [place] [address] [place] Differential cell count method Nom (Bld) Auto Normal [facility] Comment on above: Order Comment: Speci men Type: BLOOD SPECIMENOrdering Facility: [facility] Address: [address] [place] [address] Performed By: #### 5 7021-8 ####[facility] LABCLIA [id number] [place] [address] [place] Eosinophils (Bld) [#/Vol] 0.06 10*3/uL Normal <0.46 [facility] Comment on above: Order Comment: Speci men Type: BLOOD SPECIMENOrdering Facility: [facility] Address: [address] [place] [address] Performed By: #### 5 7021-8 ####[facility] LABCLIA [id number] [place] [id number] [place] Eosinophils/100 WBC (Bld) 1.2 % Normal [facility] Comment on above: Order Comment: Speci men Type: BLOOD SPECIMENOrdering Facility: [facility] Address: [address] [place] [address] Performed By: #### 5 7021-8 ####[facility] LABCLIA [id number] [address], [place] [address] [place] Erythrocyte distribution width (RBC) [Ratio] 12.1 % Normal 11.5-15.0 [facility] Comment on above: Order Comment: Speci men Type: BLOOD SPECIMENOrdering Facility: [facility] Address: [address] [place] [address] Performed By: #### 5 7021-8 ####[facility] LABCLIA [id number] [address], [place] [address] [place] Hematocrit (Bld) [Volume fraction] 41.9 % Normal 36.0-46.0 [facility] Comment on above: Order Comment: Speci men Type: BLOOD SPECIMENOrdering Facility: [facility] Address: [address] [place] [address] Performed By: #### 5 7021-8 ####[facility] LABCLIA [id number] [address], [facility] [place] Hemoglobin (Bld) [Mass/Vol] 14.3 g/dL Normal 11.5-15.5 [facility] Comment on above: Order Comment: Speci men Type: BLOOD SPECIMENOrdering Facility: [facility] Address: [address] [place] [address] Performed By: #### 5 7021-8 ####[facility] LABCLIA [id number] [address], [facility] [place] Immature granulocytes (Bld) [#/Vol] 10*3/uL Normal <0.10 [facility] Comment on above: Order Comment: Speci men Type: BLOOD SPECIMENOrdering Facility: [facility] Address: [address] [place] [address] Performed By: #### 5 7021-8 ####[facility] LABCLIA [id number] [place] [address] [place] Immature granulocytes/100 WBC (Bld) 0.2 % Normal [facility] Comment on above: Order Comment: Speci men Type: BLOOD SPECIMENOrdering Facility: [facility] Address: [address] [place] [address] Performed By: #### 5 7021-8 ####[facility] LABCLIA [id number] [place] [address] [place] Lymphocytes (Bld) [#/Vol] 2.17 10*3/uL Normal 1.00-4.00 [facility] Comment on above: Order Comment: Speci men Type: BLOOD SPECIMENOrdering Facility: [facility] Address: [address] [place] [address] Performed By: #### 5 7021-8 ####[facility] LABCLIA [id number] [place] [address] [place] Lymphocytes/100 WBC (Bld) 44.1 % Normal [facility] Comment on above: Order Comment: Speci men Type: BLOOD SPECIMENOrdering Facility: [facility] Address: [address] [place] [address] Performed By: #### 5 7021-8 ####[facility] LABCLIA [id number] [place] [id number] [place] MCH (RBC) [Entitic mass] 30.5 pg Normal 26.0-34.0 [facility] Comment on above: Order Comment: Speci men Type: BLOOD SPECIMENOrdering Facility: [facility] Address: [address] [place] [address] Performed By: #### 5 7021-8 ####[facility] LABCLIA [id number] [place] [address] [place] MCHC (RBC) [Mass/Vol] 34.1 g/dL Normal 30.5-36.0 [facility] Comment on above: Order Comment: Speci men Type: BLOOD SPECIMENOrdering Facility: [facility] Address: [address] [place] [address] Performed By: #### 5 7021-8 ####[facility] LABCLIA [id number] [place] [address] [place] MCV (RBC) [Entitic vol] 89.3 fL Normal 80.0-100.0 [facility] Comment on above: Order Comment: Speci men Type: BLOOD SPECIMENOrdering Facility: [facility] Address: [address] [place] [address] Performed By: #### 5 7021-8 ####[facility] LABCLIA [id number] [place] [address] [place] Monocytes (Bld) [#/Vol] 0.46 10*3/uL Normal <0.87 [facility] Comment on above: Order Comment: Speci men Type: BLOOD SPECIMENOrdering Facility: [facility] Address: [address] [place] [address] Performed By: #### 5 7021-8 ####[facility] LABIA [id number] [place] [address] [place] Monocytes/100 WBC (Bld) 9.3 % Normal [facility] Comment on above: Order Comment: Speci men Type: BLOOD SPECIMENOrdering Facility: [facility] Address: [address] [place] [address] Performed By: #### 5 7021-8 ####[facility] LABCLIA [id number] [place] [address] [place] Neutrophils (Bld) [#/Vol] 2.20 10*3/uL Normal 1.45-7.50 [facility] Comment on above: Order Comment: Speci men Type: BLOOD SPECIMENOrdering Facility: [facility] Address: [address] [place] [address] Performed By: #### 5 7021-8 ####[facility] LABCLIA [id number] [address] [place] Neutrophils/100 WBC (Bld) 44.8 % Normal [facility] Comment on above: Order Comment: Speci men Type: BLOOD SPECIMENOrdering Facility: [facility] Address: [address] [place] [address] Performed By: #### 5 7021-8 ####[facility] LABCLIA [id number] [place] [address] [place] Nucleated RBC (Bld) [#/Vol] 10*3/uL Normal <0.01 [facility] Comment on above: Order Comment: Speci men Type: BLOOD SPECIMENOrdering Facility: [facility] Address: [address] [place] [address] Performed By: #### 5 7021-8 ####[facility] LABCLIA [id number] [place] [address] [place] Nucleated RBC/100 WBC (Bld) [Ratio] 0.0 /100 WBC Normal [facility] Comment on above: Order Comment: Speci men Type: BLOOD SPECIMENOrdering Facility: [facility] Address: [address] [place] [address] Performed By: #### 5 7021-8 ####[facility] LABCLIA [id number] [place] [id number] [place] Platelet mean volume (Bld) [Entitic vol] 10.1 fL Normal 9.0-12.7 [facility] Comment on above: Order Comment: Speci men Type: BLOOD SPECIMENOrdering Facility: [facility] Address: [address] [place] [address] Performed By: #### 5 7021-8 ####[facility] LABCLIA [id number] [place] [address] [place] Platelets (Bld) [#/Vol] 182 10*3/uL Normal 150-400 [facility] Comment on above: Order Comment: Speci men Type: BLOOD SPECIMENOrdering Facility: [facility] Address: [address] [place] [address] Performed By: #### 5 7021-8 ####[facility] [id number] [place] [address] [place] RBC (Bld) [#/Vol] 4.69 10*6/uL Normal 3.90-5.20 [facility] Comment on above: Order Comment: Speci men Type: BLOOD SPECIMENOrdering Facility: [facility] Address: [address] [place] [address] Performed By: #### 5 7021-8 ####[facility] [id number] [place] [address] [place] WBC (Bld) [#/Vol] 4.92 10*3/uL Normal 3.70-11.00 [facility] Comment on above: Order Comment: Speci men Type: BLOOD SPECIMENOrdering Facility: [facility] Address: [address] [place] [address] Performed By: #### 5 7021-8 ####[facility] [id number] [place] [id number] [place] CNDSon 06-05-2025 CNDS HNO ID: [id number] Author: FAHAD GAITAN MD Service: Neurology Adult Epilepsy Author Type: Physician Image Processing Engineer Type: Discharge Summary Filed: 06/06/2025 07:16 Note Text: -- Attestation signed by Fahad Gaitan MD at 06/06/2025 7:16 AM EPILEPSY STAFF NOTE: Event precautions and no driving discussed with the patient. Fahad Gaitan MD -- DISCHARGE SUMMARY PATIENT NAME: Hector Leon ADMISSION DATE: 06/02/2025 DISCHARGE DATE: 06/05/2025 ADMITTING SERVICE: Epilepsy ATTENDING PHYSICIAN: Dr. Gaitan Code Status: Not on file Referring/Secondary Physician: Dr. Webster Highest Readmission Risk Score: 3 The 30 day readmissions risk score is derived from an internally validated risk model which evaluates patient level characteristics, utilization history, medication orders and lab results up until the day of discharge. Patients with a score of 39 or above are considered highest risk for readmission. Specific patient level drivers will be listed at the bottom of the summary. The 30 day readmissions risk score is derived from an internally validated risk model which evaluates patient level characteristics, utilization history, medication orders and lab results up until the day of discharge. Patients with a score of 40 or above are considered highest risk for readmission. Specific patient level drivers will be listed at the bottom of the summary. REASON FOR HOSPITALIZATION: Diagnosis of Nonepileptic Events IMPORTANT TESTS AND PROCEDURES: Continuous Video EEG and MRI HOSPITAL COURSE: Hector Leon is a 50 year old left handed female, patient of Dr. Webster, who is admitted to EMU for diagnostic clarification of episodic neurologic symptoms with suspected PNES/FND. Her first type of episode started in 09/2023 following a diagnosis of left chest wall shingles the month prior. These are characterized predominantly by worsening of left facial drooping, trouble speaking, and left eye heaviness though she has progressed to loss of awareness at times, with multiple episodes daily. The second type of episode started this year, occurs less frequently, and consists of staring episodes with multiple symptoms (muffled hearing, tunnel vision, sweaty, clammy). There are no clear significant risk factors for epilepsy, and prior EEG and MRI have been unremarkable. The patient was admitted taking Topiramate 75 mg BID (for migraines), which was decreased to 50 mg BID during admission. Patient noted to have several typical events described as face pulling to left/weakness with heart racing and lightheadedness. These occurred without EEG change. We did not capture any staring episodes during admission. Please see separate video-EEG report for details. MRI Brain w/wo was completed to evaluate CN7 which revealed No mass or pathologic intracranial enhancement. No acute intracranial findings. Specifically, no mass or pathologic enhancement within the CPA cisterns and IACs bilaterally. During admission, the social work team met with the patient to discuss the diagnosis of functional nonepileptic seizures and treatment with neuro behavioral therapy. [facility] will be presented at [facility] and social work will call the patient on 06/11 to discuss treatment recommendations. Given reassuring normal EEG, suspect staring episodes are also nonepileptic. May need to consider further EEG testing if these continue despite therapy to confirm diagnosis. She had hypokalemia during admission which was treated with potassium supplementation. Prior to discharge, topiramate 75mg BID was continued for headache treatment. She will follow up with the epilepsy team on 06/13. She was discharged home in stable condition. FINAL DIAGNOSIS: Functional Nonepileptic seizures Active Hospital Problems Diagnosis POA Functional neurological symptom disorder with attacks or seizures Yes Obesity, Class II, BMI 35-39.9 Yes Hypokalemia Yes Depression Yes Migraine Yes IBS (irritable bowel syndrome) Yes Transient neurological symptoms Yes Generalized anxiety disorder Yes Fibromyalgia Yes Gastroesophageal reflux disease without esophagitis Yes Resolved Hospital Problems No resolved problems to display. Exogenous Class 2 Obesity Transitions of Care Critical Issues: SPECIALIST FOLLOW-UP: Epilepsy 06/13 LABS AND PROCEDURES PENDING AT DISCHARGE: Finalized Video EEG Report CONSULTING TEAMS DURING HOSPITALIZATION: Social Work: KARAN Msaon Treatment Team: Physician Image Processing Engineer: Mariella Rosas PA-C PATIENT CONDITION AT DISCHARGE: Stable DISCHARGE DISPOSITION: Home with Self Care Discharge Physical Exam: VITAL SIGNS: BP 105/70 Pulse 76 Temp 36.9 ?C (98.4 ?F) (Oral) Resp 16 Ht 154.9 cm (5' 1) Wt 95.6 kg (210 lb 12.2 oz) LMP 01/16/2006 SpO (more content not included)... Normal [facility] MRI BRAIN WO/W IVCONon 06-05 MRI BRAIN WO/W IVCON * * *Final Report* * * DATE OF EXAM: Jun 05 2025 11:49AM QBM 0295 - MRI BRAIN WO/W IVCON / PROCEDURE REASON: Cranial neuropathy (CN 7) * * * * Physician Interpretation * * * * EXAMINATION: MRI BRAIN WO/W IVCON CLINICAL HISTORY: Cranial neuropathy. TECHNIQUE: IAC brain MRI protocol without and with contrast including diffusion images. MQ: [id number] Contrast: 10 mL Elucirem IV COMPARISON: MRI brain 11/30/2023. RESULT: Acute Change: There is no evidence of restricted diffusion to suggest an acute infarct. Hemorrhage: No evidence of prior parenchymal hemorrhage on the provided images. Mass Lesion/ Mass Effect: No evidence of an intracranial mass or extra-axial fluid collection. No abnormal parenchymal or leptomeningeal enhancement is noted following contrast administration. No significant mass effect. Specifically, no mass or pathologic enhancement involving CPA cisterns, IACs, Meckel's caves bilaterally. No abnormal enhancement along the visualized course of the 7th nerves bilaterally. Chronic Change: The white matter is within normal limits of signal intensity for age. Parenchyma: No significant volume loss for age. The brain parenchyma is otherwise within normal limits of signal intensity and morphology. Ventricles: Normal caliber and morphology. Skull Base: Hypothalamic and pituitary region are grossly normal. Craniocervical junction is normal. No significant marrow replacement process. Vasculature: Major intracranial arterial structures, and dural venous sinuses show typical flow void, suggesting patency by spin echo criteria. Other: The visualized paranasal sinuses and mastoid air cells are clear. The orbits and extracranial soft tissues are unremarkable. IMPRESSION: No mass or pathologic intracranial enhancement. No acute intracranial findings. Specifically, no mass or pathologic enhancement within the CPA cisterns and IACs bilaterally. Finishing Area Operator: PSCB Transcribe Date/Time: Jun 05 2025 11:49A Dictated by : CLARISSE YANEZ MD This examination was interpreted and the report reviewed and electronically signed by: CLARISSE YANEZ MD on Jun 05 2025 11:54AM EST [id number] Normal [facility] NURSING PROGon 10-08-2025 NURSING PROG HNO ID: [id number] Author: LESLYE BENZ RN Service: Radiology Author Type: Registered Nurse Type: Nursing Progress Note Filed: 06/05/2025 10:35 Note Text: Radiology Service Progress Note DATE OF SERVICE: June 05, 2025 TIME: 10:35 AM PATIENT WEIGHT: 210 LBS PATIENT IDENTITY VERIFICATION COMPLETED USING TWO (2) STANDARD IDENTIFIERS: Name and Date of confirmed by patient verbally and Name and Date of confirmed by identification band. FALL SCREENING: Has the patient had 2 falls in the last year or 1 fall with injury or currently using an Ambulatory Assistive Device (Walker, Cane, Wheelchair, Crutches, etc.)? Inpatient: Screened on floor PATIENT GENDER DATA: Assigned female at . status: : No status: NO. ALLERGIES: Reviewed and unchanged CONTRAST ALLERGY: No EXAM: MRI - CONTRAST TYPE: GROUP II IV SITE: Inpatient - refer to LDA documentation IV SITE APPEARANCE: Clean,Dry and Intact SIGNATURE: Leslye Benz RN PATIENT NAME: Hector Leon DATE: June 05, 2025 TIME: 10:35 AM Normal [facility] SOCIAL WORKon 06-05-2025 SOCIAL WORK HNO ID: [id number] Author: LISY FERMIN LISW Service: Social Work Author Type: Creative Director Type: Social Work Filed: 06/05/2025 13:54 Note Text: SOCIAL WORK PROGRESS NOTE SERVICE DATE: 06/05/2025 SERVICE TIME: 12:43 PM SW present during patient rounds with Dr. Gaitan when diagnosis of Functional Non-Epileptic Seizures (FNS) was provided given episode captured during EMU admission. SW returned to bedside to discuss diagnosis, provide education, and assist with plan for follow up. Patient identifies good understanding of the diagnosis with additional education and support. She reports of her episodes generally being triggered by stress and acknowledges that she has always just pushed down her feelings. Patient voices significant relief to have a diagnosis. SW provided patient with education regarding FNS and recommended treatment of NBT. SW provided patient with options for additional FNS education, including information for workbook Taking Control of Your Seizures. SW spoke with patient regarding out patient treatment program offered through [facility]. Patient agreeable to follow up with FNS clinic. Patient scheduled for FNS PMC follow up appointment on 06/11 at 9am with this publicity writer. Finalized treatment recommendations will be discussed at that time. SW will continue to follow as needed. SIGNATURE: KARAN Mason PATIENT NAME: Hector Leon DATE: 06/05/2025 TIME: 12:43 PM PAGER/CONTACT #: [phone] Normal [facility] Basic metabolic 2000 panelon 06-04-2025 Anion gap [Moles/Vol] 12 mmol/L Normal 8-15 [facility] Comment on above: Order Comment: Speci men Type: BLOOD SPECIMENOrdering Facility: [facility] Address: [address] [place] [address] Performed By: #### 2 4321-2 ####[facility] LABIA [id number] [place] [address] [place] Calcium [Mass/Vol] 9.0 mg/dL Normal 8.5-10.2 [facility] Comment on above: Order Comment: Speci men Type: BLOOD SPECIMENOrdering Facility: [facility] Address: [address] [place] [address] Performed By: #### 2 4321-2 ####[facility]IA [id number] [place] [address] [place] Chloride [Moles/Vol] 106 mmol/L Normal 98-107 [facility] Comment on above: Order Comment: Speci men Type: BLOOD SPECIMENOrdering Facility: [facility] Address: [address] [place] [address] Performed By: #### 2 4321-2 ####[facility] LABIA [id number] [place] [id number] [place] CO2 [Moles/Vol] 22 mmol/L Normal 22-30 [facility] Comment on above: Order Comment: Speci men Type: BLOOD SPECIMENOrdering Facility: [facility] Address: [address] [place] [address] Performed By: #### 2 4321-2 ####[facility]IA [id number] [address] [address] [place] Creatinine [Mass/Vol] 0.99 mg/dL High 0.58-0.96 [facility] Comment on above: Order Comment: Speci men Type: BLOOD SPECIMENOrdering Facility: [facility] Address: [address] [place] [address] Performed By: #### 2 4321-2 ####[facility]IA [id number] [place] [address] [place] eGFRcr SerPlBld CKD-EPI 2020 70 mL/min/1.73m???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 Performed By: #### 5 7021-8 ####[facility] LABCLIA [id number] [facility] [place] [address] [place] Nucleated RBC (Bld) [#/Vol] 10*3/uL Normal <0.01 [facility] Comment on above: Order Comment: Speci men Type: BLOOD SPECIMENOrdering Facility: [facility] Address: [address] [place] [address] Performed By: #### 5 7021-8 ####[facility] LABCLIA [id number] [facility] [address] [place] Nucleated RBC/100 WBC (Bld) [Ratio] 0.0 /100 WBC Normal [facility] Comment on above: Order Comment: Speci men Type: BLOOD SPECIMENOrdering Facility: [facility] Address: [address] [place] [address] Performed By: #### 5 7021-8 ####[facility] LABCLIA [id number] [place] [address] [place] Platelet mean volume (Bld) [Entitic vol] 9.8 fL Normal 9.0-12.7 [facility] Comment on above: Order Comment: Speci men Type: BLOOD SPECIMENOrdering Facility: [facility] Address: [address] [place] [address] Performed By: #### 5 7021-8 ####[facility] LABCLIA [id number] [place] [address] [place] Platelets (Bld) [#/Vol] 186 10*3/uL Normal 150-400 [facility] Comment on above: Order Comment: Speci men Type: BLOOD SPECIMENOrdering Facility: [facility] Address: [address] [place] [address] Performed By: #### 5 7021-8 ####[facility] LABIA [id number] [place] [address] [place] RBC (Bld) [#/Vol] 4.56 10*6/uL Normal 3.90-5.20 [facility] Comment on above: Order Comment: Speci men Type: BLOOD SPECIMENOrdering Facility: [facility] Address: [address] [place] [address] Performed By: #### 5 7021-8 ####[facility] LABIA [id number] [place] [address] [place] WBC (Bld) [#/Vol] 4.58 10*3/uL Normal 3.70-11.00 [facility] Comment on above: Order Comment: Speci men Type: BLOOD SPECIMENOrdering Facility: [facility] Address: [address] [place] [address] Performed By: #### 5 7021-8 ####[facility] LABIA [id number] [place] [id number] [place] CBC W Auto Differential pane l (Bld)on 06-02-2025 Basophils (Bld) [#/Vol] 0.03 10*3/uL Normal <0.11 [facility] Comment on above: Order Comment: Speci men Type: BLOOD SPECIMENOrdering Facility: [facility] Address: [address] [place] [address] Performed By: #### 5 7021-8 ####[facility] LABCLIA [id number] [place] [address] [place] Basophils/100 WBC (Bld) 0.6 % Normal [facility] Comment on above: Order Comment: Speci men Type: BLOOD SPECIMENOrdering Facility: [facility] Address: [address] [place] [address] Performed By: #### 5 7021-8 ####[facility] LABCLIA [id number] [place] [address] [place] Differential cell count method Nom (Bld) Auto Normal [facility] Comment on above: Order Comment: Speci men Type: BLOOD SPECIMENOrdering Facility: [facility] Address: [address] [place] [address] Performed By: #### 5 7021-8 ####[facility] LABCLIA [id number] [place] [address] [place] Eosinophils (Bld) [#/Vol] 0.07 10*3/uL Normal <0.46 [facility] Comment on above: Order Comment: Speci men Type: BLOOD SPECIMENOrdering Facility: [facility] Address: [address] [place] [address] Performed By: #### 5 7021-8 ####[facility] LABCLIA [id number] [place] [address] [place] Eosinophils/100 WBC (Bld) 1.4 % Normal [facility] Comment on above: Order Comment: Speci men Type: BLOOD SPECIMENOrdering Facility: [facility] Address: [address] [place] [address] Performed By: #### 5 7021-8 ####[facility] LABCLIA [id number] [place] [address] [place] Erythrocyte distribution width (RBC) [Ratio] 12.0 % Normal 11.5-15.0 [facility] Comment on above: Order Comment: Speci men Type: BLOOD SPECIMENOrdering Facility: [facility] Address: [address] [place] [address] Performed By: #### 5 7021-8 ####[facility] LABCLIA [id number] [address], [place] [address] [place] Hematocrit (Bld) [Volume fraction] 40.8 % Normal 36.0-46.0 [facility] Comment on above: Order Comment: Speci men Type: BLOOD SPECIMENOrdering Facility: [facility] Address: [address] [place] [address] Performed By: #### 5 7021-8 ####[facility] LABCLIA [id number] [place] [address] [place] Hemoglobin (Bld) [Mass/Vol] 14.4 g/dL Normal 11.5-15.5 [facility] Comment on above: Order Comment: Speci men Type: BLOOD SPECIMENOrdering Facility: [facility] Address: [address] [place] [address] Performed By: #### 5 7021-8 ####[facility] LABCLIA [id number] [address], [place] [address] [place] Immature granulocytes (Bld) [#/Vol] 10*3/uL Normal <0.10 [facility] Comment on above: Order Comment: Speci men Type: BLOOD SPECIMENOrdering Facility: [facility] Address: [address] [place] [address] Performed By: #### 5 7021-8 ####[facility] LABCLIA [id number] [address], [facility] [place] Immature granulocytes/100 WBC (Bld) 0.2 % Normal [facility] Comment on above: Order Comment: Speci men Type: BLOOD SPECIMENOrdering Facility: [facility] Address: [address] [place] [address] Performed By: #### 5 7021-8 ####[facility] LABIA [id number] [place] [address] [place] Lymphocytes (Bld) [#/Vol] 2.43 10*3/uL Normal 1.00-4.00 [facility] Comment on above: Order Comment: Speci men Type: BLOOD SPECIMENOrdering Facility: [facility] Address: [address] [place] [address] Performed By: #### 5 7021-8 ####[facility] LABIA [id number] [place] [address] [place] Lymphocytes/100 WBC (Bld) 47.6 % Normal [facility] Comment on above: Order Comment: Speci men Type: BLOOD SPECIMENOrdering Facility: [facility] Address: [address] [place] [address] Performed By: #### 5 7021-8 ####[facility] LABIA [id number] [place] [address] [place] MCH (RBC) [Entitic mass] 30.6 pg Normal 26.0-34.0 [facility] Comment on above: Order Comment: Speci men Type: BLOOD SPECIMENOrdering Facility: [facility] Address: [address] [place] [address] Performed By: #### 5 7021-8 ####[facility] LABCLIA [id number] [place] [id number] [place] MCHC (RBC) [Mass/Vol] 35.3 g/dL Normal 30.5-36.0 [facility] Comment on above: Order Comment: Speci men Type: BLOOD SPECIMENOrdering Facility: [facility] Address: [address] [place] [address] Performed By: #### 5 7021-8 ####[facility] LABCLIA [id number] [address] [place] [address] [place] MCV (RBC) [Entitic vol] 86.8 fL Normal 80.0-100.0 [facility] Comment on above: Order Comment: Speci men Type: BLOOD SPECIMENOrdering Facility: [facility] Address: [address] [place] [address] Performed By: #### 5 7021-8 ####[facility] LABCLIA [id number] [address], [place] [address] [place] Monocytes (Bld) [#/Vol] 0.49 10*3/uL Normal <0.87 [facility] Comment on above: Order Comment: Speci men Type: BLOOD SPECIMENOrdering Facility: [facility] Address: [address] [place] [address] Performed By: #### 5 7021-8 ####[facility] LABCLIA [id number] [place] [address] [place] Monocytes/100 WBC (Bld) 9.6 % Normal [facility] Comment on above: Order Comment: Speci men Type: BLOOD SPECIMENOrdering Facility: [facility] Address: [address] [place] [address] Performed By: #### 5 7021-8 ####[facility] LABCLIA [id number] [place] [address] [place] Neutrophils (Bld) [#/Vol] 2.07 10*3/uL Normal 1.45-7.50 [facility] Comment on above: Order Comment: Speci men Type: BLOOD SPECIMENOrdering Facility: [facility] Address: [address] [place] [address] Performed By: #### 5 7021-8 ####[facility] LABCLIA [id number] [place] [id number] [place] Neutrophils/100 WBC (Bld) 40.6 % Normal [facility] Comment on above: Order Comment: Speci men Type: BLOOD SPECIMENOrdering Facility: [facility] Address: [address] [place] [address] Performed By: #### 5 7021-8 ####[facility] LABIA [id number] [address] [place] [address] [place] Nucleated RBC (Bld) [#/Vol] 10*3/uL Normal <0.01 [facility] Comment on above: Order Comment: Speci men Type: BLOOD SPECIMENOrdering Facility: [facility] Address: [address] [place] [address] Performed By: #### 5 7021-8 ####[facility] LABIA [id number] [address], [place] [address] [place] Nucleated RBC/100 WBC (Bld) [Ratio] 0.0 /100 WBC Normal [facility] Comment on above: Order Comment: Speci men Type: BLOOD SPECIMENOrdering Facility: [facility] Address: [address] [place] [address] Performed By: #### 5 7021-8 ####[facility] LABIA [id number] [place] [address] [place] Platelet mean volume (Bld) [Entitic vol] 9.5 fL Normal 9.0-12.7 [facility] Comment on above: Order Comment: Speci men Type: BLOOD SPECIMENOrdering Facility: [facility] Address: [address] [place] [address] Performed By: #### 5 7021-8 ####[facility] LABIA [id number] [place] [id number] [place] Platelets (Bld) [#/Vol] 234 10*3/uL Normal 150-400 [facility] Comment on above: Order Comment: Speci men Type: BLOOD SPECIMENOrdering Facility: [facility] Address: [address] [place] [address] Performed By: #### 5 7021-8 ####[facility] LABCLIA [id number] [address] [address] [place] RBC (Bld) [#/Vol] 4.70 10*6/uL Normal 3.90-5.20 [facility] Comment on above: Order Comment: Speci men Type: BLOOD SPECIMENOrdering Facility: [facility] Address: [address] [place] [address] Performed By: #### 5 7021-8 ####[facility] LABIA [id number] [address] [address] [place] WBC (Bld) [#/Vol] 5.10 10*3/uL Normal 3.70-11.00 [facility] Comment on above: Order Comment: Speci men Type: BLOOD SPECIMENOrdering Facility: [facility] Address: [address] [place] [address] Performed By: #### 5 7021-8 ####[facility] LABIA [id number] [address] [address] [place] Comprehensive metabolic 2000 panelon 06-02-2025 Albumin [Mass/Vol] 4.0 g/dL Normal 3.9-4.9 [facility] Comment on above: Order Comment: Speci men Type: BLOOD SPECIMENOrdering Facility: [facility] Address: [address] [place] [address] Performed By: #### 1 9123-9, 3016-3, 45064-6, 2777-1 ####[facility] [id number] [address] [address] [place] ALP [Catalytic activity/Vol] 85 U/L Normal 34-123 [facility] Comment on above: Order Comment: Speci men Type: BLOOD SPECIMENOrdering Facility: [facility] Address: [address] [place] [address] Performed By: #### 1 9123-9, 3016-3, 07902-6, 2776-1 ####[facility] LABCLIA [id number] [address] [address] [place] ALT [Catalytic activity/Vol] 14 U/L Normal 7-38 [facility] Comment on above: Order Comment: Speci men Type: BLOOD SPECIMENOrdering Facility: [facility] Address: [address] [place] [address] Performed By: #### 1 9123-9, 6-3, 92813-2, 2776- ####[facility] LABCLIA [id number] [address] [address] [place] Anion gap [Moles/Vol] 11 mmol/L Normal 8-15 [facility] Comment on above: Order Comment: Speci men Type: BLOOD SPECIMENOrdering Facility: [facility] Address: [address] [place], [place] [address] Performed By: #### 1 9123-9, 6-3, 00560-4, 2776- ####[facility] LABIA [id number] [address] [address] [place] AST [Catalytic activity/Vol] 18 U/L Normal 13-35 [facility] Comment on above: Order Comment: Speci men Type: BLOOD SPECIMENOrdering Facility: [facility] Address: [address] [place] [address] Performed By: #### 1 9123-9, 3015-3, 81203-4, 2776- ####[facility] LABIA [id number] [address] [address] [place] Bilirubin [Mass/Vol] 0.3 mg/dL Normal 0.2-1.3 [facility] Comment on above: Order Comment: Speci men Type: BLOOD SPECIMENOrdering Facility: [facility] Address: [address] [place] [address] Performed By: #### 1 9123-9, 3016-3, 10050-8, 2776-1 ####[facility] LABCLIA [id number] [facility] [address] [address] [place] Calcium [Mass/Vol] 9.2 mg/dL Normal 8.5-10.2 [facility] Comment on above: Order Comment: Speci men Type: BLOOD SPECIMENOrdering Facility: [facility] Address: [address] [place], [place] [id number] Performed By: #### 1 9123-9, 3016-3, 32755-0, 2776- ####[facility] LABCLIA [id number] [address] [address] [place] Chloride [Moles/Vol] 106 mmol/L Normal 98-107 [facility] Comment on above: Order Comment: Speci men Type: BLOOD SPECIMENOrdering Facility: [facility] Address: [address] [place], [place] [id number] Performed By: #### 1 9123-9, 3016-3, 49977-6, 2776- ####[facility] LABIA [id number] [address] [address] [place] CO2 [Moles/Vol] 22 mmol/L Normal 22-30 [facility] Comment on above: Order Comment: Speci men Type: BLOOD SPECIMENOrdering Facility: [facility] Address: [address] [place] [address] Performed By: #### 1 9123-9, 3016-3, 85082-2, 2776-08 ####[facility] LABIA [id number] [address] [address] [place] Creatinine [Mass/Vol] 0.93 mg/dL Normal 0.58-0.96 [facility] Comment on above: Order Comment: Speci men Type: BLOOD SPECIMENOrdering Facility: [facility] Address: [address] [place] [address] Performed By: #### 1 9123-9, 3016-3, 84498-7, 2777-1 ####[facility] LABIA [id number] [place] [address] [place] eGFRcr SerPlBld CKD-EPI 2020 76 mL/min/1.73m??? Normal >=60 [facility] Comment on above: Order Comment: Hai trevino Type: BLOOD SPECIMENOrdering Facility: [facility] Address: [address] [place] [address] Result Comment: Kaur mated Glomerular Filtration Rate (eGFR) is calculated using the 2020 CKD-EPI creatinine equation. This equation utilizes serum creatinine, sex, and age as parameters. The creatinine assay has traceable calibration to isotope dilution-mass spectrometry. Refer to KDIGO guidelines for clinical interpretation. In patients with unstable renal function, e.g. those with acute kidney injury, the eGFR may not accurately reflect actual GFR. Performed By: #### 1 9123-9, 3016-3, 80697-8, 2776- ####[facility] LABIA [id number] [place] [address] [place] Glucose [Mass/Vol] 75 mg/dL Normal 74-99 [facility] Comment on above: Order Comment: Hai trevino Type: BLOOD SPECIMENOrdering Facility: [facility] Address: [address] [place] [address] Result Comment: The [place] Diabetes Association (ADA) provides guidance for cutoff values for fasting glucose and random glucose. The ADA defines fasting as no caloric intake for at least 8 hours. Fasting plasma glucose results between 100 to 125 mg/dL indicate increased risk for diabetes (prediabetes). Fasting plasma glucose results greater than or equal to 126 mg/dL meet the criteria for diagnosis of diabetes. In the absence of unequivocal hyperglycemia, results should be confirmed by repeat testing. In a patient with classic symptoms of hyperglycemia or hyperglycemic crisis, random plasma glucose results greater than or equal to 200 mg/dL meet the criteria for diagnosis of diabetes. Reference: Standards of Medical Care in Diabetes 2016, [place] [employer] Association. Diabetes Care. 2016.39(Suppl 1). Performed By: #### 1 9123-9, 3016-3, 94434-4, 277-1 ####[facility] LABCLIA [id number] [address] [address] [place] Potassium [Moles/Vol] 3.6 mmol/L Low 3.7-5.1 [facility] Comment on above: Order Comment: Speci men Type: BLOOD SPECIMENOrdering Facility: [facility] Address: [address] [place], [place] [id number] Performed By: #### 1 9123-9, 3016-3, 13883-3, 277-1 ####[facility] LABIA [id number] [address] [address] [place] Protein [Mass/Vol] 6.7 g/dL Normal 6.3-8.0 [facility] Comment on above: Order Comment: Speci men Type: BLOOD SPECIMENOrdering Facility: [facility] Address: [address] [place] [address] Performed By: #### 1 9123-9, 6-3, 02154-7, 277-1 ####[facility] [id number] [address] [address] [place] Sodium [Moles/Vol] 139 mmol/L Normal 136-144 [facility] Comment on above: Order Comment: Speci men Type: BLOOD SPECIMENOrdering Facility: [facility] Address: [address] [place], [place] [id number] Performed By: #### 1 9123-9, 3016-3, 63388-8, 277-1 ####[facility] LABIA [id number] [address] [address] [place] Urea nitrogen [Mass/Vol] 17 mg/dL Normal 7-21 [facility] Comment on above: Order Comment: Speci men Type: BLOOD SPECIMENOrdering Facility: [facility] Address: [address] [place], [place] [id number] Performed By: #### 1 9123-9, 6-3, 70404-4, 277-1 ####[facility] LABIA [id number] [place] [id number] [place] HCG Preg Ur Qlon 06-02-2025 HCG ( test) Ql (U) Negative Normal Negative [facility] Comment on above: Order Comment: Speci men Type: URINE SPECIMENOrdering Facility: [facility] Address: [address] [place] [address] [place] [address] Result Comment: This test is intended to aid in the early detection of . Very dilute urine samples, as indicated by a low specific gravity, may not contain hospital sales representative levels of hCG. This test detects intact hCG only. This test does not reliably detect hCG degradation products, including free-beta subunit and beta-core fragment. Therefore, this test may show reduced reactivity in urine after 8 weeks gestation. A number of conditions other than , including trophoblastic disease and certain non-trophoblastic neoplasms cause elevated levels of hCG. As with any assay employing mouse antibodies, the possibility exists for interference by human anti-mouse antibodies (HAMA) in the specimen. The test provides a presumptive diagnosis for . Performed By: #### 2 106-3 ####[facility] LABIA [id number] [place] [id number] [place] HISTORY PHYSICALon HISTORY PHYSICAL HNO ID: [id number] Author: FAHAD GAITAN MD Service: Neurology Adult Epilepsy Author Type: Physician Type: H&P Filed: 06/03/2025 09:42 Note Text: NEURO EPILEPSY ADMIT NOTE SERVICE DATE: 06/02/2025 SERVICE TIME: 10:15AM NIGHT AND WEEKEND COVERAGE: After 5 pm and over the weekends, please page [phone] to contact the epilepsy resident/fellow/provider montessori lead teacher ATTENDING PHYSICIAN: Dr. Feldman [facility] UNIT: 1 SERVICE: Adult Epilepsy Subjective CHIEF COMPLAINT: Evaluation for recurrent episodes with concern for seizure. PRESENT ILLNESS: This is a 50 year old left handed female with PMHx of baseline L lower facial assymmetry, migraines, fibromyalgia, psoriasis, depression, anxiety, shingles, psoriasis, eczema, IBS, who presents for diagnostic clarification of recurrent episodes of multiple types without clear etiology. On interview on arrival to EMU, patient reports feeling well, has not been having any events yet today and is without complaints. She confirms the history of transient neurologic symptoms described below, and adds that her first episode type with left-sided facial weakness has been occurring multiple times today, though none so far today, at times with associated headaches (though not consistently). She often has retained awareness with her episodes, but has noted a few episodes (no more than 10) with loss of awareness and at times falling to the ground but without abnormal movements, without injury, and has been with others around to assist her when this occurs. She has not experienced convulsions, tongue biting, urinary/fecal incontinence with these episodes. She does not describe a clear/recurrent aura or post-ictal phenomenon. She reports her second episode type, during which she feels she is in a tunnel with change in hearing/perception and diaphoresis is much less frequent (no more than weekly), last occurring 2 weeks ago. She notes triggers for her symptoms, including light shining on her eyes from a certain angle, exposure to heat or cold, stress, positional changes, and fatigue. SEIZURE HISTORY: Per IOV with Dr. Webster 03/2025: Seen by Dr. Shea of Cerebrovascular 11/2023. Evaluation for recurrent episodes with concern for seizure. Started after diagnosis of shingles in 08/2023. Presented and admitted to [place] 10/21-10/23 for sudden left facial droop, slurred speech, and decreased left sided sensation. Given tenecteplase. CT and MRI negative. Discharged on ASA and statin. Presented to [place] ED on 10/31 for recurrent chest pain and left sided facial droop. CT brain, CTA CAP negative. Reported recurrent episodes of transient facial droop. No triggers. Lasting 45+ minutes. Fatigued with headache, word finding difficulty, and trouble focusing the eyes. Overall felt unlikely to be related to cerebrovascular disease. Raised concern for focal seizure vs complex migraine vs FND. Recommended EEG and general neurology follow up. Saw Dr. Li 01/2024. Reported long standing history of headache that seemed to be associated with the facial weakness. Overall raised concern for migraine with complex aura (motor, ?visual) raising concern for familial hemiplegic migraine vs IIH. Started TPM for headache management. Evaluated by XIOMARA Allen in Neuromuscular 04/08/2025. Initial evaluation for POTS. Reported episodes of lightheadedness, heart racing to the 150s, and LoC starting in 09/2023 after an episode of shingles. Reports multiple falls. Reported episodes of blank stare while seated with eyes open followed by confusion and exhaustion. No longer driving. Uncertain etiology per their evaluation. Concern raised for seizure prompting referral to Epilepsy for further evaluation. Today, she reports the following and confirmed the above (addended as necessary): She reports having had the outbreak of shingles in 08/2023 under her left rib cage like half belt from her ribcage to the midback. Was not hospitalized. Was not present anywhere else. Still has some sharp itching in this region on her back. With regards to the above episodes of left facial droop and associated symptoms. The left facial droop is new since 09/2023. Never returned to normal. Seems to have recurrent exacerbations of drooping on the left. Feels like the inside of her cheek is thick and her mouth gets really dry and she has trouble talking. Her eye then feels like it is being pulled. Happening 2-5 times per day. Lasting 2 minutes up to 10-15 minutes. Has lost consciousness with the episodes- a total of three times. Seems to happen suddenly without warning that she can recall. Thinks duration of maybe minutes, probably less than 15 minutes. Witnessed by family members- just told her that they could not get her awake. No shaking or abnormal movements. No tongue bite or incontinence. Exacerbated by bending over and when sunlight hits her eyes. She additionally reports episodes (more content not included)... Normal [facility] Magnesium SerPl-mCncon 06-02 Magnesium [Mass/Vol] 2.3 mg/dL Normal 1.7-2.3 [facility] Comment on above: Order Comment: Speci men Type: BLOOD SPECIMENOrdering Facility: [facility] Address: [address] [place] [address] Performed By: #### 1 9123-9, 3016-3, 07435-1, 2777-1 ####[facility] LABCLIA [id number] [place] [address] [place] Phosphate SerPl-mCncon 06-02 Phosphate [Mass/Vol] 3.5 mg/dL Normal 2.7-4.8 [facility] Comment on above: Order Comment: Speci men Type: BLOOD SPECIMENOrdering Facility: [facility] Address: [address] [place] [address] Performed By: #### 1 9123-9, 3016-3, 74262-2, 2777-1 ####[facility] LABCLIA [id number] [place] [address] [place] TOXICOLOGY SCREEN, ROUTINE U RINEon 06-02-2025 Amphetamines Confirm (U) [Mass/Vol] Negative Normal Negative [facility] Comment on above: Order Comment: Speci men Type: URINE SPECIMENOrdering Facility: [facility] Address: [address] [place] [address] Result Comment: Cuto ff threshold at 1000 ng/mL. Performed By: #### U TOX2 ####[facility] LABCLIA [id number] [place] [address] [place] BARBITURATES, URINE Negative Normal Negative [facility] Comment on above: Order Comment: Speci men Type: URINE SPECIMENOrdering Facility: [facility] Address: [address] [place] [address] Result Comment: Cuto ff threshold at 200 ng/mL. Performed By: #### U TOX2 ####[facility] LABCLIA [id number] [place] [address] [place] BENZODIAZEPINES, URINE Negative Normal Negative [facility] Comment on above: Order Comment: Speci men Type: URINE SPECIMENOrdering Facility: [facility] Address: [address] [place] [address] Result Comment: Cuto ff threshold at 200 ng/mL. Performed By: #### U TOX2 ####[facility] LABCLIA [id number] [place] [address] [place] Cannabinoids Screen Ql (U) Negative Normal Negative [facility] Comment on above: Order Comment: Speci men Type: URINE SPECIMENOrdering Facility: [facility] Address: [address] [place] [address] Result Comment: Cuto ff threshold at 50 ng/mL. Performed By: #### U TOX2 ####[facility] LABCLIA [id number] [place] [address] [place] Cocaine Ql (U) Negative Normal Negative [facility] Comment on above: Order Comment: Speci men Type: URINE SPECIMENOrdering Facility: [facility] Address: [address] [place] [address] Result Comment: Cuto ff threshold at 300 ng/mL. Performed By: #### U TOX2 ####[facility] LABCLIA [id number] [place] [address] [place] Ethanol (U) [Mass/Vol] <11 Normal <11 [facility] Comment on above: Order Comment: Speci men Type: URINE SPECIMENOrdering Facility: [facility] Address: [address] [place] [address] Performed By: #### U TOX2 ####[facility] LABCLIA [id number] [place] [address] [place] fentaNYL Screen Ql (U) Negative Normal Negative [facility] Comment on above: Order Comment: Speci men Type: URINE SPECIMENOrdering Facility: [facility] Address: [address] [place] [address] Result Comment: Cuto ff threshold at 5 ng/mL. Performed By: #### U TOX2 ####[facility] LABCLIA [id number] [place] [address] [place] Opiates Screen Ql (U) Negative Normal Negative [facility] Comment on above: Order Comment: Speci men Type: URINE SPECIMENOrdering Facility: [facility] Address: [address] [place] [address] Result Comment: Cuto ff threshold at 300 ng/mL. Performed By: #### U TOX2 ####[facility] LABIA [id number] [place] [address] [place] oxyCODONE cutoff Screen (U) [Mass/Vol] Negative Normal Negative [facility] Comment on above: Order Comment: Speci men Type: URINE SPECIMENOrdering Facility: [facility] Address: [address] [place] [address] Result Comment: Cuto ff threshold at 100 ng/mL. Performed By: #### U TOX2 ####[facility] LABIA [id number] [place] [address] [place] Phencyclidine Ql (U) Negative Normal Negative [facility] Comment on above: Order Comment: Speci men Type: URINE SPECIMENOrdering Facility: [facility] Address: [address] [place] [address] Result Comment: Cuto ff threshold at 25 ng/mL. Performed By: #### U TOX2 ####[facility] LABIA [id number] [place] [address] [place] [facility] TSH Qn 2.060 m[IU]/L Normal 0.270-4.200 [facility] Comment on above: Order Comment: Speci men Type: BLOOD SPECIMENOrdering Facility: [facility] Address: [address] [place] [address] Result Comment: If t he patient is , TSH reference range varies by gestational period: First Trimester (weeks 9-12): 0.180-2.990 mIU/L Second Trimester: 0.110-3.980 mIU/L Third Trimester: 0.480-4.710 mIU/L Xu Hameed et al. A Practical Approach for the Verifications and Determination of Site- and Trimester-Specific Reference Intervals for Thyroid Function tests in . Thyroid, 2019:29:3:412-420. Tl Sommers et al. 2017 Guidelines of the [place] Thyroid Association for the Diagnosis and Management of Thyroid Disease during and the . Thyroid, 2017:27:3:315-389. Performed By: #### 1 9123-9, 3016-3, 48812-7, 2777-1 ####[facility] INO [id number] [facility]ITALMary [address] [place] [facility] CNOVon 05-17-2025 CNOV Office Visit (NUMBHT ) -- HECTOR LEON ([id number]) 1975 F U[place] Date Time Provider Department 05/17/25 4:30 PM ABIODUN LI During your visit today, we recorded the following information about you: Temperature Pulse Blood pressure 97.2 degrees 83/minute 120/83 Abiodun Li MD 05/17/2025 4:57 PM Signed 16:29 - 16:55 Chart Review Parenthetic [comments] and tinted emphasis mine. When last seen, 02/02/24, my impression was: Migraine with complex aura (left facial weakness). There is also a visual aura which is subtle (only seen with eyes closed). In case she has familial hemiplegic migraine, I will refer her to Medical Genetics. Probably getting more frequent and severe due to analgesic rebound. I will start topiramate for now: increasing by 25 mg per week up to a maintenance dose of 50 mg bid. We discussed that topiramate may cause difficulty thinking - usually in the form of word finding difficulty. It is reversible on discontinuing the drug. It frequently causes tingling in the lips, fingers and toes for the first couple of months of treatment. It sometimes causes a change in the taste of food; in particular, carbonated beverages may taste metallic. It can also cause decreased appetite. Three percent of patients taking topiramate experience urolithiasis; it is thought that drinking water liberally reduces the likelihood of this happening. There may be an overlap with IIH (habitus; occasional pulsatile tinnitus; vague optic nerve borders; slightly increased right blind spot superiorly). I will request her MRI brain report from [facility], and contact Dr. Schmidt at [facility] regarding her 01/13/24 funduscopic exam . I will also order an MRV brain. IBS-C makes verapamil unattractive for prevention of the motor aura. The possible presence of IIH might make acetazolamide the best choice. Pending determination of the presence or absence of papilledema, though, I have more confidence in topiramate for prevention of cephalalgia, and will employ it. Thank you for requesting neurologic consultation for Hector Leon. She will be in touch by Ashwin about her progress. ====== MyChart 02/01/25 - I am doing well with this dose [topiramate 50 mg bid]. I do have so[me] new changes with black out happening on occasions or zoning off and not being able to communicate with others during it 04/29/25 - I returned Ms. Leon's call. She had had a tilt table test at [facility] which had been indeterminate. It seems they therefore want to stop as many of her medications as possible and repeat it. I explained to Ms. Leon that there had been a question of seizures, but as far as I could tell, she did not have seizures, but did have migraine with aura (not genetic hemiplegic migraine, though). As far as I could tell is the lama proviso here. No amount of EEG can exclude seizure disorder; it can diagnose seizure disorder, but if an ictus does not occur during recording, and if there are no interictal discharges, one cannot be sure. The longer one's cumulative EEG's are without finding traces of epilepsy, the more convinced one becomes of its absence - but you just cannot be sure, Since I am treating her with topiramate for migraine (not for seizures), I anticipate that she might suffer headaches tapering it off (which would be wiser than stopping cold turkey, as I had had concern in the past for seizures). I suggested she have the physician who is interested in a tilt table test call me on my [facility] mobile phone. Otherwise, she can cut back on her topiramate to 50 mg every day for 3 days, then stop entirely 5 days before the tilt table test. (Of note, she is on a 'migraine preventive dose' - half to a third of the usually antiepileptic dose). I advised she make sure she has ibuprofen on hand should she get a headache. She should restart the topiramate the evening after her tilt table test. Ms. Leon made me aware that she is going to have an EMU recording ordered by neurologist Dr. Carol Ann Webster. Review of his note suggests to me that he is not convinced of epilepsy, but wants to take excluding it one step fuither. ------ Neuro/Cardio Reflex Testing wwo Tilt on 05/13/25 found: This is a normal cardiovascular autonomic test panel. There is no evidence of a significant cardiovagal or cardiovascular adrenergic abnormality. Specifically, there is no evidence of orthostatic tachycardia or hypotension. ------ She is due for EMU admission on 06/02/25. ====== With that preamble, I don't think that I have gotten a copy of Dr. Schmidt's ophthalmology note on Ms. Leon, but Ms. Leon tells me that she was given a clean bill of ophthalmologic [employer]. She notes that she is light sensitive; and moreover, h (more content not included)... Normal [facility] HISTORY PHYSICALon HISTORY PHYSICAL HNO ID: [id number] Author: ABIODUN LI MD Service: ? Author Type: Physician Type: H&P Filed: 05/17/2025 16:57 Note Text: 16:29 - 16:55 Chart Review Parenthetic [comments] and tinted emphasis mine. When last seen, 02/02/24, my impression was: Migraine with complex aura (left facial weakness). There is also a visual aura which is subtle (only seen with eyes closed). In case she has familial hemiplegic migraine, I will refer her to Medical Genetics. Probably getting more frequent and severe due to analgesic rebound. I will start topiramate for now: increasing by 25 mg per week up to a maintenance dose of 50 mg bid. We discussed that topiramate may cause difficulty thinking - usually in the form of word finding difficulty. It is reversible on discontinuing the drug. It frequently causes tingling in the lips, fingers and toes for the first couple of months of treatment. It sometimes causes a change in the taste of food; in particular, carbonated beverages may taste metallic. It can also cause decreased appetite. Three percent of patients taking topiramate experience urolithiasis; it is thought that drinking water liberally reduces the likelihood of this happening. There may be an overlap with IIH (habitus; occasional pulsatile tinnitus; vague optic nerve borders; slightly increased right blind spot superiorly). I will request her MRI brain report from [facility], and contact Dr. Schmidt at [facility] regarding her 01/13/24 funduscopic exam . I will also order an MRV brain. IBS-C makes verapamil unattractive for prevention of the motor aura. The possible presence of IIH might make acetazolamide the best choice. Pending determination of the presence or absence of papilledema, though, I have more confidence in topiramate for prevention of cephalalgia, and will employ it. Thank you for requesting neurologic consultation for Hector Leon. She will be in touch by Ashwin about her progress. ====== MyChart 02/01/25 - I am doing well with this dose [topiramate 50 mg bid]. I do have so[me] new changes with black out happening on occasions or zoning off and not being able to communicate with others during it 04/29/25 - I returned Ms. Leon's call. She had had a tilt table test at [facility] which had been indeterminate. It seems they therefore want to stop as many of her medications as possible and repeat it. I explained to Ms. Leon that there had been a question of seizures, but as far as I could tell, she did not have seizures, but did have migraine with aura (not genetic hemiplegic migraine, though). As far as I could tell is the lama proviso here. No amount of EEG can exclude seizure disorder; it can diagnose seizure disorder, but if an ictus does not occur during recording, and if there are no interictal discharges, one cannot be sure. The longer one's cumulative EEG's are without finding traces of epilepsy, the more convinced one becomes of its absence - but you just cannot be sure, Since I am treating her with topiramate for migraine (not for seizures), I anticipate that she might suffer headaches tapering it off (which would be wiser than stopping cold turkey, as I had had concern in the past for seizures). I suggested she have the physician who is interested in a tilt table test call me on my [facility] mobile phone. Otherwise, she can cut back on her topiramate to 50 mg every day for 3 days, then stop entirely 5 days before the tilt table test. (Of note, she is on a 'migraine preventive dose' - half to a third of the usually antiepileptic dose). I advised she make sure she has ibuprofen on hand should she get a headache. She should restart the topiramate the evening after her tilt table test. Ms. Leon made me aware that she is going to have an EMU recording ordered by neurologist Dr. Carol Ann Webster. Review of his note suggests to me that he is not convinced of epilepsy, but wants to take excluding it one step fuither. ------ Neuro/Cardio Reflex Testing wwo Tilt on 05/13/25 found: This is a normal cardiovascular autonomic test panel. There is no evidence of a significant cardiovagal or cardiovascular adrenergic abnormality. Specifically, there is no evidence of orthostatic tachycardia or hypotension. ------ She is due for EMU admission on 06/02/25. ====== With that preamble, I don't think that I have gotten a copy of Dr. Schmidt's ophthalmology note on Ms. Leon, but Ms. Leon tells me that she was given a clean bill of ophthalmologic health. She notes that she is light sensitive; and moreover, her face will screw up (droops on the left side) when exposed to light. It also occurs with stormy weather as well as changes in temperature; and when she is stressed. She is currently on topiramate 50mg bid; prior to that, she suffered headaches almost daily at worst 7-8/10; avera (more content not included)... Normal [facility] HISTORY PHYSICAL HNO ID: [id number] Author: ABIODUN LI MD Service: ? Author Type: Physician Type: H&P Filed: 05/17/2025 07:32 Note Text: Chart Review Parenthetic [comments] and tinted emphasis mine. When last seen, 02/02/24, my impression was: Migraine with complex aura (left facial weakness). There is also a visual aura which is subtle (only seen with eyes closed). In case she has familial hemiplegic migraine, I will refer her to Medical Genetics. Probably getting more frequent and severe due to analgesic rebound. I will start topiramate for now: increasing by 25 mg per week up to a maintenance dose of 50 mg bid. We discussed that topiramate may cause difficulty thinking - usually in the form of word finding difficulty. It is reversible on discontinuing the drug. It frequently causes tingling in the lips, fingers and toes for the first couple of months of treatment. It sometimes causes a change in the taste of food; in particular, carbonated beverages may taste metallic. It can also cause decreased appetite. Three percent of patients taking topiramate experience urolithiasis; it is thought that drinking water liberally reduces the likelihood of this happening. There may be an overlap with IIH (habitus; occasional pulsatile tinnitus; vague optic nerve borders; slightly increased right blind spot superiorly). I will request her MRI brain report from [facility], and contact Dr. Schmidt at [facility] regarding her 01/13/24 funduscopic exam [phone]. I will also order an MRV brain. IBS-C makes verapamil unattractive for prevention of the motor aura. The possible presence of IIH might make acetazolamide the best choice. Pending determination of the presence or absence of papilledema, though, I have more confidence in topiramate for prevention of cephalalgia, and will employ it. Thank you for requesting neurologic consultation for Hector Leon. She will be in touch by Ashwin about her progress. ====== Andrzejhart 02/01/25 - I am doing well with this dose [topiramate 50 mg bid]. I do have so[me] new changes with black out happening on occasions or zoning off and not being able to communicate with others during it 04/29/25 - I returned Ms. Leon's call. She had had a tilt table test at [facility] which had been indeterminate. It seems they therefore want to stop as many of her medications as possible and repeat it. I explained to Ms. Leon that there had been a question of seizures, but as far as I could tell, she did not have seizures, but did have migraine with aura (not genetic hemiplegic migraine, though). As far as I could tell is the lama proviso here. No amount of EEG can exclude seizure disorder; it can diagnose seizure disorder, but if an ictus does not occur during recording, and if there are no interictal discharges, one cannot be sure. The longer one's cumulative EEG's are without finding traces of epilepsy, the more convinced one becomes of its absence - but you just cannot be sure, Since I am treating her with topiramate for migraine (not for seizures), I anticipate that she might suffer headaches tapering it off (which would be wiser than stopping cold turkey, as I had had concern in the past for seizures). I suggested she have the physician who is interested in a tilt table test call me on my [facility] mobile phone. Otherwise, she can cut back on her topiramate to 50 mg every day for 3 days, then stop entirely 5 days before the tilt table test. (Of note, she is on a 'migraine preventive dose' - half to a third of the usually antiepileptic dose). I advised she make sure she has ibuprofen on hand should she get a headache. She should restart the topiramate the evening after her tilt table test. Ms. Leon made me aware that she is going to have an EMU recording ordered by neurologist Dr. Carol Ann Webster. Review of his note suggests to me that he is not convinced of epilepsy, but wants to take excluding it one step fuither. ------ Neuro/Cardio Reflex Testing wwo Tilt on 05/13/25 found: This is a normal cardiovascular autonomic test panel. There is no evidence of a significant cardiovagal or cardiovascular adrenergic abnormality. Specifically, there is no evidence of orthostatic tachycardia or hypotension. ------ She is due for EMU admission on 06/02/25. ====== Abiodun Li MD Normal [facility] MR/BMS.BPon 05-10-2025 MR/BMS.BP [address], [address] [place] [id number] OFFICE VISIT Date of Service: 05/10/25 MR#: [id number] Acct: [id number] Name: HECTOR LEON Rep #: [id number] : 1975 Provider: SANDRA villareal Age/Sex: 49/F Location[place] [facility] [place] Status: Signed Intake Vital Signs 03/13/25 07:51 05/10/25 10:27 Height 5 ft 1 in 5 ft 1 in Weight: 212 lb BMI 40.0 BP 112/80 Blood Pressure Location Lt brachial Position Sitting Respiration 16 Pulse 88 Pulse Source Monitor BP Intake Visit Reasons: 2-3mfu Allergies egg Allergy (Verified 03/13/25 07:55) Other lactose (lactose intolerant) Allergy (Verified 03/13/25 07:55) Constipation Food Allergies: Uncoded Adverse Reaction (Verified 03/13/25 07:55) BANANA, THROAT SWELLS milk Adverse Reaction (Verified 03/13/25 07:55) Constipation prednisone Adverse Reaction (Verified 03/13/25 07:55) Nausea/Vom/Diarrhea PFSH Medical History (Updated 12/12/24 @ 08:59 by SANDRA Ellis) Wears glasses Post-menopausal Depression Anxiety Bite by animal Hemiplegic migraine Blackout History of IBS Non-smoker History of Holter monitoring History of echocardiogram Family history of colon cancer Personal history of colonic polyps IBS (irritable bowel syndrome) Migraine Back problem GERD (gastroesophageal reflux disease) Fatty liver Bilateral tinnitus Gallstones Morbid obesity Fibromyalgia Surgical History (Updated 11/08/24 @ 14:46 by Suzie Scott) History of hysterectomy Hx of colonoscopy S/P cholecystectomy S/P tonsillectomy and adenoidectomy H/O tubal ligation H/O: hysterectomy Family History Mother Age: 67 Rheumatoid arthritis Hypertension Osteoporosis Thyroid disorder Anemia Anxiety Father Age: 71 Hypertension Hyperlipemia Grandmother VTE (venous thromboembolism) Maternal grandmother. Colon cancer at 59yrs Blood coagulation disorder Age related osteoporosis Rheumatoid arthritis Brother Age: 44 VTE (venous thromboembolism) CVA (cerebral vascular accident) Hypertension Rheumatoid arthritis Grandfather Alcoholism Grandmother Diabetes Heart disease Grandfather Diabetes Heart disease Aunt Schizophrenia Social History adopted: No household members: spouse, family and children current occupational status: unemployed pets and animals: Yes pets and animals: cat(s), dog(s), fish and farm animals sexually active: Yes Smoking Status: Never smoker Electronic Cigarette Use: not used alcohol intake: current alcohol intake frequency: holidays/special occasions only substance use type: does not use diet: lactose free and other caffeine: Yes (1) Type: coffee frequency: does not exercise seatbelt use: always do you feel safe at home: Yes HPI History of Present Illness History provided by: patient HPI: Hector Leon is a 49 year old female patient presenting today for a follow up evaluation. Reports she has been managing since last appointment. Report she is not taking medication currently due to tilt table test that requires no medication. Due to this is having a hard time sleeping. Was sleeping well prior to this. Was getting 8-9 hours per night. Reports mood has been good with medication. Does feel cooler weather had improved mood. Denies recent feelings of depression. Denies SI/HI. Denies recent feelings of anxiety. Appetite has been good. Reports she has gained some weight back. Previous similar episode: Yes Age of first onset of symptoms: 11-20 years Review of Systems Constitutional Reports: change in weight (gain) and fatigue Eyes Reports: change in vision (seeing specialist), blurry vision, photophobia and eye discomfort Ears, Nose, Mouth, Throat Reports: change in hearing and tinnitus Cardiovascular Reports: chest pain, palpitations, lightheadedness and dyspnea Respiratory Reports: dyspnea; Denies: wheezing Gastrointestinal Reports: abdominal pain, constipation and change in bowel habits Genitourinary Denies: dysuria, urinary frequency or urinary urgency Musculoskeletal Reports: back pain, joint pain, joint swelling, muscle cramps and muscle weakness Integumentary/Breast Denies: rash, pruritus or erythema Neurological Reports: headache(s), weakness in extremities and other (tremors) Psychiatric Reports: memory loss and difficulty concentrating; Denies: anxiety, mood swings, panic attacks, change in sleep pattern, hopelessness, loss of interest, irritability, paranoia, visual hallucinations, auditory hallucinations, suicidal ideation or homicidal ideation Endocrine Reports: polyuria, polydipsia, fatigue, cold intolerance, heat intolerance and other (excessive hunger) Hematologic/Ly (more content not included)... Normal [facility] HISTORY PHYSICALon HISTORY PHYSICAL HNO ID: [id number] Author: ABIODUN LI MD Service: ? Author Type: Physician Type: H&P Filed: 04/29/2025 18:17 Note Text: I returned Ms. Leon's call. She had had a tilt table test at [facility] which had been indeterminate. It seems they therefore want to stop as many of her medications as possible and repeat it. I explained to Ms. Leon that there had been a question of seizures, but as far as I could tell, she did not have seizures, but did have migraine with aura (not genetic hemiplegic migraine, though). As far as I could tell is the lama proviso here. No amount of EEG can exclude seizure disorder; it can diagnose seizure disorder, but if an ictus does not occur during recording, and if there are no interictal discharges, one cannot be sure. The longer ones cumulative EEG's are without finding traces of epilepsy, the more convinced one becomes of its absence - but you just cannot be sure, Since I am treating her with topiramate for migraine (not for seizures), I anticipate that she might suffer headaches tapering it off (which would be wiser than stopping cold turkey, as I had had concern in the past for seizures). I suggested she have the physician who is interested in a tilt table test call me on my [facility] mobile phone. Otherwise, she can cut back on her topiramate to 50 mg every day for 3 days, then stop entirely 5 days before the tilt table test. (Of note, she is on a 'migraine preventive dose' - half to a third of the usually antiepileptic dose). I advised she make sure she has ibuprofen on hand should she get a headache. She should restart the topiramate the evening after her tilt table test. Ms. Leon made me aware that she is going to have an EMU recording ordered by neurologist Dr. Carol Ann Webster. Review of his note suggests to me that he is not convinced of epilepsy, but wants to take excluding it one step fuither. Abiodun Li MD Normal [facility] CNP[facility] Telephone (OBGYWM) -- HECTOR LEON ([id number]) 1975 F [place] Date Time Provider Department 04/25/25 [facility] LARSON OBGYWM During your visit today, we recorded the following information about you: Nadia Farrar RN 04/25/2025 12:28 PM Signed Patient is having a tilt table test done on 05/13/25. She needs to be off of all her medications for 5 days prior. Patient asking if she needs to wean herself off the medications prescribed by DM. Wellbutrin and Naltrexone appear to be the two medication. Patient was unsure. MELANIA Mack Deidre, MD 04/25/2025 12:34 PM Signed I would try to wean down off wellbutrin- go to once per day then every other day for a few days before stopping as she may feel terrible if she stops suddenly. The naltrexone she can stop. She can resume at normal dose then when done with test. Nadia Farrar RN 04/25/2025 1:47 PM Signed Patient notified. Nadia Farrar RN Allergies As of Date: 04/25/2025 Noted Allergy Reaction BANANA 02/21/2012 8 - GI Upset EGGS (EGG) 02/21/2012 8 - GI Upset LACTOSE 02/21/2012 5 - Intolerance PREDNISONE 06/28/2019 14 - Other: See Comments Comments: Black stools Date Reviewed: 04/08/2025 Reviewed by: Ethan Lai OCCA - Fully Assessed Reason for Visit: Medication Problem [65] Prescriptions as of 04/25/2025 - naltrexone 50 mg tablet Take 1 tablet by mouth once daily. - buPROPion SR (WELLBUTRIN SR) 150 mg 12 hr tablet Take 1 tablet by mouth two times a day. - busPIRone (BUSPAR) 7.5 mg tablet - desvenlafaxine ER (PRISTIQ) 100 mg 24 hr tablet - hydrOXYzine HCl (ATARAX) 25 mg tablet - topiramate (TOPAMAX) 50 mg tablet Take 1 tablet by mouth two times a day. - busPIRone (BUSPAR) 5 mg tablet Take 1 tablet by mouth every 12 hours. - desvenlafaxine ER (KHEDEZLA) 50 mg 24 hr tablet take 1 tablet by mouth once daily . START AFTER 7 DAY COURSE OF 25MG - MULTIVITAMIN ORAL Take by mouth. - loratadine (CLARITIN) 10 mg tablet - pantoprazole DR (PROTONIX) 40 mg tablet Take 1 tablet by mouth every afternoon. - INV VITAMIN D3 4000 UNIT OR [place] (IRB [id number]) CAPSULE - polyethylene glycol 3350 (MIRALAX) 17 gram/dose powder - psyllium husk (METAMUCIL) 3.4 gram/5.4 gram powd Problem List As Of Date 04/25/2025 Noted Resolved Lichen sclerosus [L90.0] 02/21/2012 Genital atrophy of female [N94.9] 03/23/2012 Crohn's disease (HCC) [K50.90] 08/29/2000 07/03/2019 Fibromyalgia [M79.7] Gastroesophageal reflux disease without esophag* Other constipation [K59.09] 07/03/2019 Lactose intolerance [E73.9] 07/03/2019 Generalized anxiety disorder [F41.1] Class 3 severe obesity due to excess calories w*10/22/2022 Recurrent cold sores [B00.1] 10/22/2022 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] 10/22/2022 Vitamin D insufficiency [E55.9] 10/25/2022 History of cardiovascular stress test [Z92.89] 11/07/2023 Mixed hyperlipidemia [E78.2] 11/23/2023 Transient neurological symptoms [R29.818] 12/02/2023 Fatty liver [K76.0] 12/16/2023 Encounter Status:Closed by NADIA FARRAR on 04/25/25 Normal [facility] CBC panel Auto (Bld)on 04-13 Erythrocyte distribution width (RBC) [Ratio] 12.6 % Normal 11.5-15.0 [facility] Comment on above: Order Comment: Speci men Type: BLOOD SPECIMENOrdering Facility: [facility] Address: [address] [place] [address] Performed By: #### 5 8410-2 ####[facility] LABCLIA [id number] [place] [address] [place] Hematocrit (Bld) [Volume fraction] 42.6 % Normal 36.0-46.0 [facility] Comment on above: Order Comment: Speci men Type: BLOOD SPECIMENOrdering Facility: [facility] Address: [address] [place] [address] Performed By: #### 5 8410-2 ####[facility] LABIA [id number] [place] [address] [place] Hemoglobin (Bld) [Mass/Vol] 14.0 g/dL Normal 11.5-15.5 [facility] Comment on above: Order Comment: Speci men Type: BLOOD SPECIMENOrdering Facility: [facility] Address: [address] [place] [address] Performed By: #### 5 8410-2 ####[facility] LABIA [id number] [place] [address] [place] MCH (RBC) [Entitic mass] 30.6 pg Normal 26.0-34.0 [facility] Comment on above: Order Comment: Speci men Type: BLOOD SPECIMENOrdering Facility: [facility] Address: [address] [place] [address] Performed By: #### 5 8410-2 ####[facility] LABIA [id number] [place] [address] [place] MCHC (RBC) [Mass/Vol] 32.9 g/dL Normal 30.5-36.0 [facility] Comment on above: Order Comment: Speci men Type: BLOOD SPECIMENOrdering Facility: [facility] Address: [address] [place] [address] Performed By: #### 5 8410-2 ####[facility] LABCLIA [id number] [place] [address] [place] MCV (RBC) [Entitic vol] 93.0 fL Normal 80.0-100.0 [facility] Comment on above: Order Comment: Speci men Type: BLOOD SPECIMENOrdering Facility: [facility] Address: [address] [place] [address] Performed By: #### 5 8410-2 ####[facility] LABCLIA [id number] [place] [address] [place] Nucleated RBC (Bld) [#/Vol] 10*3/uL Normal <0.01 [facility] Comment on above: Order Comment: Speci men Type: BLOOD SPECIMENOrdering Facility: [facility] Address: [address] [place] [address] Performed By: #### 5 8410-2 ####[facility] LABIA [id number] [place] [address] [place] Platelet mean volume (Bld) [Entitic vol] 10.0 fL Normal 9.0-12.7 [facility] Comment on above: Order Comment: Speci men Type: BLOOD SPECIMENOrdering Facility: [facility] Address: [address] [place] [address] Performed By: #### 5 8410-2 ####[facility] LABCLIA [id number] [place] [id number] [place] Platelets (Bld) [#/Vol] 240 10*3/uL Normal 150-400 [facility] Comment on above: Order Comment: Speci men Type: BLOOD SPECIMENOrdering Facility: [facility] Address: [address] [place] [address] Performed By: #### 5 8410-2 ####[facility] LABCLIA [id number] [place] [address] [place] RBC (Bld) [#/Vol] 4.58 10*6/uL Normal 3.90-5.20 [facility] Comment on above: Order Comment: Speci men Type: BLOOD SPECIMENOrdering Facility: [facility] Address: [address] [place] [address] Performed By: #### 5 8410-2 ####[facility] LABCLIA [id number] [place] [address] [place] WBC (Bld) [#/Vol] 5.49 10*3/uL Normal 3.70-11.00 [facility] Comment on above: Order Comment: Speci men Type: BLOOD SPECIMENOrdering Facility: [facility] Address: [address] [place] [address] Performed By: #### 5 8410-2 ####[facility] LABCLIA [id number] [place] [address] [place] Vit B12 [facility] Streeton 08-16-2 025 Cobalamin (Vitamin B12) [Mass/Vol] 877 pg/mL Normal 232-1245 [facility] Comment on above: Order Comment: Speci men Type: BLOOD SPECIMENOrdering Facility: [facility] Address: [address] [place] [address] Performed By: #### 2 132-9 ####[facility] LABCLIA [id number] [place] [address] [place] CNOVon 04-08-2025 CNOV Office Visit (NENMMN ) -- HECTOR LEON ([id number]) 1975 F [place] Date Time Provider Department 04/08/25 2:00 PM BENTON ALLEN NENMMN During your visit today, we recorded the following information about you: Pulse Blood pressure Weight Height 87/minute 113/73 97.3 kg 1.549 m Benton Allen, NABILA.[employer] ARCHITECT 04/08/2025 3:48 PM Signed [facility] New Patient Evaluation Hector Leon is a 49 year old female who presents today for initial evaluation of POTS Hector Leon is referred in consultation by Dangelo Lee MD for POTS. Final recommendations will be communicated to the requesting physician by way of a letter. Recording using ambient [employer] software for draft documentation of the visit was discussed with the patient/authorized hospital sales representative; all questions welcomed and answered. Patient/authorized hospital sales representative agreed to proceed. PMH: Cholecystitis, Crohn's disease, depression, eczema, esophageal reflux, fibromyalgia, FATOU, history of shingles, lichen sclerosus, morbid obesity, psoriasis, vitamin D insufficiency. HPI April 08, 2025: Has a DIANE provider - neurology Symptoms: Lightheadedness Tachycardia - just standing still and taking to ppl ok while sitting LOC Dizziness described as lightheadedness and feeling faint that first started Sep 2023 after shingles - When does your dizziness occur: with standing, fast head position changes even when sitting, dizziness with sitting even without movement - during these symptoms every time she will have worsening drooping of the left side of her face - constant state of drooping though. Following local neurologist for this - work up completed regarding bells palsy. - How often: multiple times per day - Vision changes: yes - blurred - Hearing changes: yes - tinnitus constant, high pitched. Steady. - Things that trigger symptoms (certain movements or environments): posture changes. Stress. Temperature changes. - Things that relieve symptoms: sitting and laying down. Slightly tilted back works the best. - How long do episodes last: last about 10-15 minutes. - Falls: yes - most of the time ppl are catching her. 2.5 weeks ago - unsure if she hit her head. - She is not driving anymore - Weakness: yes - whole body feels week. Fatigued all of the time. - Numbness / tingling: yes - occasionally hands and feet. Usually with the lightheadedness episodes. Started around the same time. Come up in hands not arms. Just the bottom of the feet. - Chest pain: no - Tachycardia: yes - up to 150 - Other symptoms: blank stares LOC Event Description: - Started Sep 2023 after shingles. Occur in any position - they have occurred while in standing and seated position. - Last episode was a few days ago. - What were you doing when it happened? Happened after a stressful situation with her daughter. Face drooping a lot more, eyes rolling around, words slurring. Sitting down when this occurred. She feels her face drooping worsening and muffled hearing, lightheadedness - leading to blacked out vision. - Length of prodrome: up to 6 minutes. - States that her dog gets worked up and noticed a change and notified her spouse when patient is feeling bad. - eyes open during this - Eyes rolling back: yes - Convulsions: no - Mouth maceration: no - Loss of bowel / bladder: no - Post ictal state description (confused, lethargic): confused and tired. Needing a nap. If its a really bad one, feels lethargic. - Drug or alcohol use? no Medical history: - Heart disease: no - Seizures: no - TBI: no - Significant life stressors or recent changes: no - Illness at [id number]-[id number]: yes Autonomic Screening Do you become dizzy or lightheaded with standing? yes Do you notice your heart racing (tachycardia) with postural change? yes Do you have syncope? yes In the past month, did you have any falls? yes How long can you stand (in minutes) before becoming symptomatic? Takes about 10 seconds. Are symptoms worse after consuming a meal? yes Are symptoms alleviated by sitting/laying down? yes Autonomic check list: YES (Y) or NO (N) Dry mouth: yes Dry eyes: yes Change in sweat: yes, excessively Constipation: yes Abdominal Bloating with shortly after eating: yes Fluctuation of diarrhea and constipation: yes Urination: yes Change in taste: yes Challenge swallowing foods: no Skin changes of blue or redness to distal limbs: yes Fainting /near syncope/syncope: yes Dizziness: yes Lightheadedness: yes Chest pain: no Challenge in breathing: yes Tachycardia: yes Temperature Regulation: yes Current management of orthostatic condition Diet: no restrictions, avoids dairy Exercise: no Water: 80 oz per day, and body armour Salt: not adding salt to diet Stockings: no Current Medications for orthostatic conditio (more content not included)... [facility] -- HECTOR LEON ([id number]) 1975 F [place] Date Time Provider Department 03/18/25 [facility]ON LARSON OBGYWM During your visit today, we recorded the following information about you: Awa Feliciano 03/18/2025 9:53 AM Signed Patient cancelled today's weight management follow up due to having a migraine and diarrhea. Patient's next DOS is 05/07/25. No sooner availability with provider. Patient added to wait list. Patient is wanting to know how provider would like patient to continue with medication until she can be seen next. Fallon Larson MD 03/18/2025 10:29 AM Signed Please remind patient she can always change to a virtual visit but just needs to notify office so they can change her over. She should be taking topiramte 50mg BID by neurology and Buproprion BID and Naltrexone BID. She can continue those until she is seen next. Nafisa Marks RN 03/18/2025 11:06 AM Signed Patient notified and voiced understanding. Nafisa Marks RN Allergies As of Date: 03/18/2025 Noted Allergy Reaction BANANA 02/21/2012 8 - GI Upset EGGS (EGG) 02/21/2012 8 - GI Upset LACTOSE 02/21/2012 5 - Intolerance PREDNISONE 06/28/2019 14 - Other: See Comments Comments: Black stools Date Reviewed: 02/28/2025 Reviewed by: Tori Guy MA - Fully Assessed Reason for Visit: Medication Question [8878] Prescriptions as of 03/18/2025 - busPIRone (BUSPAR) 7.5 mg tablet - desvenlafaxine ER (PRISTIQ) 100 mg 24 hr tablet - hydrOXYzine HCl (ATARAX) 25 mg tablet - topiramate (TOPAMAX) 50 mg tablet Take 1 tablet by mouth two times a day. - naltrexone 50 mg tablet Take 1 tablet by mouth once daily. - buPROPion SR (WELLBUTRIN SR) 150 mg 12 hr tablet Take 1 tablet by mouth two times a day. - busPIRone (BUSPAR) 5 mg tablet Take 1 tablet by mouth every 12 hours. - desvenlafaxine ER (KHEDEZLA) 50 mg 24 hr tablet take 1 tablet by mouth once daily . START AFTER 7 DAY COURSE OF 25MG - MULTIVITAMIN ORAL Take by mouth. - loratadine (CLARITIN) 10 mg tablet - pantoprazole DR (PROTONIX) 40 mg tablet Take 1 tablet by mouth every afternoon. - INV VITAMIN D3 4000 UNIT OR [place] (IRB [id number]/[id number]) CAPSULE - polyethylene glycol 3350 (MIRALAX) 17 gram/dose powder - psyllium husk (METAMUCIL) 3.4 gram/5.4 gram powd Problem List As Of Date 03/18/2025 Noted Resolved Lichen sclerosus [L90.0] 02/21/2012 Genital atrophy of female [N94.9] 03/23/2012 Crohn's disease (HCC) [K50.90] 08/29/2000 07/03/2019 Fibromyalgia [M79.7] Gastroesophageal reflux disease without esophag* Other constipation [K59.09] 07/03/2019 Lactose intolerance [E73.9] 07/03/2019 Generalized anxiety disorder [F41.1] Class 3 severe obesity due to excess calories w*10/22/2022 Recurrent cold sores [B00.1] 10/22/2022 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 Encounter Status:Closed by NAFISA MARKS on 03/18/[address] [facility] SEND OUT TST 2024 [facility] [place] SCAN TEST RESULTS 1 View results in Scanned Documents link when available Normal [facility] Comment on above: Order Comment: Speci men Type: BLOOD SPECIMENOrdering Facility: [facility] Address: [address] [place] [address] Performed By: #### M ISC1 ####NON-INTERFACED REF LABSCLIA SEE SCANNED [facility]ULTS[facility] LABCLIA [id number] [address] STATES OF [facility] REFERRAL LAB 1 (DROP-DOWN) [employer] Normal [facility] Comment on above: Order Comment: Speci men Type: BLOOD SPECIMENOrdering Facility: [facility] Address: [address] [place] [address] Performed By: #### M ISC1 ####NON-INTERFACED REF LABSCLIA SEE SCANNED [facility]ULTSMAG[facility] LABCLIA [id number] [address] [place] TEST 1 Familial Hemiplegic Migraine panel jourdan add on prelim evidence gene Normal [facility] Comment on above: Order Comment: Speci men Type: BLOOD SPECIMENOrdering Facility: [facility] Address: [address] [place] [address] Performed By: #### M ISC1 ####NON-INTERFACED REF LABSCLIA SEE SCANNED [facility]ULTSMAG[facility] LABCLIA [id number] [address] [place] MR/BMS.BPon 03-13-2025 MR/BMS.BP [address], [address] [place] [address] OFFICE VISIT Date of Service: 03/13/25 MR#: [id number] Acct: [id number] Name: HECTOR LEON #: [id number] : 1975 Provider: SANDRA villareal Age/Sex: 49/F Location[place] [facility] [place] Status: Signed Intake Vital Signs 01/23/25 10:00 03/13/25 07:51 Height 5 ft 1 in 5 ft 1 in Weight: 212 lb BMI 40.0 BP 128/75 H 112/80 Blood Pressure Location Lt brachial Lt brachial Position Sitting Sitting Respiration 16 16 Pulse 69 88 Pulse Source Monitor Monitor BP Intake Visit Reasons: 6 wk FU Accompanied by: Self Allergies egg Allergy (Verified 03/13/25 07:55) Other lactose (lactose intolerant) Allergy (Verified 03/13/25 07:55) Constipation Food Allergies: Uncoded Adverse Reaction (Verified 03/13/25 07:55) BANANA, THROAT SWELLS milk Adverse Reaction (Verified 03/13/25 07:55) Constipation prednisone Adverse Reaction (Verified 03/13/25 07:55) Nausea/Vom/Diarrhea Medications ???Medication ???Instructions ???Recorded ???Confirmed ???Type polyethylene glycol 3350 17 4 g PO DAILY 01/10/24 03/13/25 His tory gram/dose oral powder (Miralax) psyllium husk 0.4 gram capsule 0.4 g PO DAILY 01/10/24 03/13/25 H istory (Metamucil) cholecalciferol (vitamin D3) 10 4,000 unit PO DAILY 09/03/2403/13 History mcg (400 unit) capsule topiramate 25 mg tablet 50 mg PO BID Migraines 09/03/24 History loratadine 10 mg tablet 10 mg PO QDAY 10/02/24 03/13/25 Hi story multivitamin 1 tab PO QDAY 10/02/24 03/13/25 Hi story pantoprazole 40 mg tablet,delayed 40 mg PO DAILY #90 tabs 01/28/25 03/13/25 Rx release (Protonix) buspirone 7.5 mg tablet 7.5 mg PO BID #180 tabs 03/13/25 0 03/13/25 Rx desvenlafaxine succinate 100 mg 100 mg PO DAILY #90 tabs 03/13/25 03/13/25 Rx tablet,extended release 24 hr hydroxyzine HCl 25 mg tablet 12.5 mg (1/2 x 25 mg) PO BID #90 0 03/13/25 03/13/25 Rx tabs PFSH Medical History (Updated 12/12/24 @ 08:59 by SANDRA Ellis) Wears glasses Post-menopausal Depression Anxiety Bite by animal Hemiplegic migraine Blackout History of IBS Non-smoker History of Holter monitoring History of echocardiogram Family history of colon cancer Personal history of colonic polyps IBS (irritable bowel syndrome) Migraine Back problem GERD (gastroesophageal reflux disease) Fatty liver Bilateral tinnitus Gallstones Morbid obesity Fibromyalgia Surgical History (Updated 11/08/24 @ 14:46 by Suzie Scott) History of hysterectomy Hx of colonoscopy S/P cholecystectomy S/P tonsillectomy and adenoidectomy H/O tubal ligation H/O: hysterectomy Family History Mother Age: 67 Rheumatoid arthritis Hypertension Osteoporosis Thyroid disorder Anemia Anxiety Father Age: 71 Hypertension Hyperlipemia Grandmother VTE (venous thromboembolism) Maternal grandmother. Colon cancer at 59yrs Blood coagulation disorder Age related osteoporosis Rheumatoid arthritis Brother Age: 44 VTE (venous thromboembolism) CVA (cerebral vascular accident) Hypertension Rheumatoid arthritis Grandfather Alcoholism Grandmother Diabetes Heart disease Grandfather Diabetes Heart disease Aunt Schizophrenia Social History adopted: No household members: spouse, family and children current occupational status: unemployed pets and animals: Yes pets and animals: cat(s), dog(s), fish and farm animals sexually active: Yes Smoking Status: Never smoker Electronic Cigarette Use: not used alcohol intake: current alcohol intake frequency: holidays/special occasions only substance use type: does not use diet: lactose free and other caffeine: Yes (1) Type: coffee frequency: does not exercise seatbelt use: always do you feel safe at home: Yes HPI History of Present Illness History provided by: patient HPI: Hector Leon is a 49 year old female patient presenting today for a follow up evaluation. Reports mood has been good since last appointment. Feels she has been thinking more clearly since last appointment. Reports she has been working on setting boundaries with her family. Denies recent feelings of depression. Denies SI/HI. Reports she has been feeling more fatigued recently. Has been sleeping well at night but does not want to get out of bed in the morning. Does take 25mg of hydroxyzine at bedtime. Denies recent feelings of anxiety. Denies panic attacks. Has taken hydroxyzine BID. Appetite has lynda good. Has been gaining weight and would like to lose some. Previous similar episode: Yes Age of first onset of symptoms: 11-20 years Review of Systems Constitutional Reports: change in (more content not included)... Normal [facility] Bacteria Ur Culton 5 Bacteria identified Cx Nom (U) ORGANISM ID: 1 >=100,000 CFU/ml Escherichia coli ORGANISM ID: 1 (ESCHERICHIA COLI) ANTIBIOTIC INTERPRETATION JESSIE STATUS REFERENCE RANGE Ampicillin S <=2 F Susceptible <=8 , Intermediate >8 , Resistant >16 Cefazolin S <=4 F Susceptible 0-16 , Intermediate <0 or >16 , Resistant >16 For uncomplicated urinary tract infections, cefazolin results can be used to predict susceptibility or resistance to cephalexin. Ceftriaxone S <=1 F Susceptible <=1 , Intermediate >1 , Resistant >=4 Cefepime S <=1 F Susceptible <=2 , Susceptible-Dose Dependent >2 , Resistant >=16 Ertapenem S <=0.5 F Susceptible <=0.5 , Intermediate >.5 , Resistant >1 Meropenem S <=0.25 F Susceptible <=1 , Intermediate >1 , Resistant >2 Ampicillin/Sulbact S <=2 F Susceptible <=8 , Intermediate >8 , Resistant >16 Piperacillin/Tazobac S <=4 F Susceptible <16 , Susceptible-Dose Dependent >=16 , Resistant >=32 Gentamicin S <=1 F Susceptible <=2 , Intermediate >2 , Resistant >=8 Tobramycin S <=1 F Susceptible <4 , Intermediate >=4 , Resistant >=8 Trimeth sulfameth S <=20 F Susceptible <=40 , Resistant >40 Ciprofloxacin S <=0.25 F Susceptible <0.5 , Intermediate >=.5 , Resistant >=1 Nitrofurantoin S <=16 F Susceptible <=32 , Intermediate >32 , Resistant >64 Abnormal [facility] Comment on above: Performed By: #### 6 30-4 ####[facility] LABCLIA [id number] [place] [id number] [facility] CNOVon 02-28-2025 CNOV Office Visit (UCWSTR ) -- LEONHECTOR ([id number]) 1975 F [place] Date Time Provider Department 02/28/25 7:15 PM [facility] During your visit today, we recorded the following information about you: Temperature Pulse Respiration Blood pressure 97 degrees 80/minute 18/minute 140/91 Weight 97.3 kg Tanvir Torres APRN.[employer]CHITECT 02/28/2025 7:34 PM Signed [facility] Subjective Hector Leon is a 49 year old female. Patient presents with: Hematuria: Hematuria, pain with urination x today Hematuria Dysuria and Hematuria: - Onset today. - Describes dysuria as a pulling sensation rather than burning. - Denies fever, chills, nausea, emesis, back pain, or abdominal pain. Review of Systems Genitourinary: Positive for hematuria. Constitutional: (-) fever, (-) chills Gastrointestinal: (-) nausea, (-) vomiting, (-) abdominal pain Genitourinary: (+) dysuria, (+) hematuria Musculoskeletal: (-) back pain Objective BP 140/91 Pulse 80 Temp 36.1 ?C (97 ?F) Resp 18 Wt 97.3 kg (214 lb 8.1 oz) LMP 01/16/2006 SpO2 99% BMI 39.73 kg/m? PAST MEDICAL HISTORY Diagnosis Date Acute cholecystitis 12/12/2023 s/p lap td Crohn's disease (HCC) 2000 crohns disease, rectal bleeding resolved after hysterectomy. GI in [facility] Dysfunctional uterine bleeding 2006 s/p hysterectomy Dysmenorrhea Eczema Esophageal reflux Gastroesophageal reflux Fatty liver Fibromyalgia Generalized anxiety disorder History of cardiac monitoring 11/23/2023 Patient completed event monitor secondary to palpitations. Underlying sinus rhythm with excellent heart rate variability. Heart rate ranged from 50-140, average heart 75. A total of 74 strips were sent to us to review. No correlation with any arrhythmias. No evidence atrial fibrillation noted. This is a normal monitor. History of cardiovascular stress test 11/17/2020 The patient's resting heart rate was 85 bpm and blood pressure was 112/82 mmHg. The patient exercised according to the Modified Jagdish protocol. Total exercise 6 minutes and 15 seconds. The maximum heart rate was 134 bpm, which is 76% predicted for age. METs achieved was 4.4. The double product achieved was 93586. Peak heart rate was 134 bpm and peak blood pressure was 138/92 mmHg. History of echocardiogram 10/22/2023 LVEF 55-60%. No significant valvular abnormality. History of exercise stress test (without NM imaging) 11/07/2023 No electrocardiographic evidence of ischemia. Resting HR 68 bpm and BP was 116/80 mmHg. Exercised according to the Jagdish protocol. Test was terminated due to shortness of breath and leg fatigue. Total exercise time was 4 minutes and 30 seconds. Maximum HR was 157 bpm, which is 90% of the predicted heart rate for age. History of shingles 08/2023 LUQ, (L) flank, (L) posterior mid back. Lactose intolerance Lichen sclerosus Morbid obesity (HCC) Other acne Acne Recurrent cold sores Scalp psoriasis Vitamin D insufficiency PAST SURGICAL HISTORY Procedure Laterality Date COLONOSCOPY 2009 multiple for crohns disease. [employer]. Benign polyp COLONOSCOPY 09/21/2005 active colitis at distal transverse colon COLONOSCOPY around 2007. [place]. Normal. COLONOSCOPY 01/15/2004 severe acute and chronic colitis, sml internal hemorrhoids COLONOSCOPY 03/12/2003 hyperplastic polyp x2, colitis EGD 09/21/2005 chronic reflux like symptoms, normal looking distal esophagus LAPAROSCOPY SURG CHOLECYSTECTOMY 12/13/2023 LIG/TRNSXJ FLP TUBE ABDL/VAG APPR UNI/BI Tubal ligation PAST SURGICAL HISTORY OF wisdom teeth PAST SURGICAL HISTORY OF 2007 hysterectomy lavhbso PAST SURGICAL HISTORY OF tonsilectomy ALLERGIES Banana, Eggs [Egg], Lactose, and Prednisone MEDICATIONS busPIRone (BUSPAR) 7.5 mg tablet desvenlafaxine ER (PRISTIQ) 100 mg 24 hr tablet hydrOXYzine HCl (ATARAX) 25 mg tablet topiramate (TOPAMAX) 50 mg tablet Take 1 tablet by mouth two times a day. naltrexone 50 mg tablet Take 1 tablet by mouth once daily. buPROPion SR (WELLBUTRIN SR) 150 mg 12 hr tablet Take 1 tablet by mouth two times a day. MULTIVITAMIN ORAL Take by mouth. loratadine (CLARITIN) [address] (PROTONIX) 40 mg tablet Take 1 tablet by mouth every afternoon. INV VITAMIN D3 4000 UNIT OR [place] (IRB [id number]/[id number]) CAPSULE polyethylene glycol 3350 (MIRALAX) 17 gram/dose powder psyllium husk (METAMUCIL) 3.4 gram/5.4 gram powd busPIRone (BUSPAR) 5 mg tablet Take 1 tablet by mouth every 12 hours. (Patient not taking: Reported on 02/28/2025) tirzepatide, weight loss (ZEPBOUND) 2.5 mg/0.5 mL pen injector Inject 2.5 mg subcutaneously one time a week. desvenlafaxine ER (KHEDEZLA) 50 mg 24 hr tablet take 1 tablet by mouth once daily . START AFTER 7 DAY COURSE OF 25MG (Patient not taking: Reported on 02/28/2025) FAMILY (more content not included)... Normal [facility] UA DIP, URINE (POC)on 2024 BILIRUBIN UA (POCT) Negative Negative [facility] CLARITY UA (POCT) Cloudy [facility] COLOR UA (POCT) Dark yellow [facility] GLUCOSE UA (POCT) Negative Negative mg/dL [facility] Hemoglobin Ql (U) Large Abnormal Negative [facility] Interpretation and review of laboratory results Abnormal [facility] KETONE UA (POCT) Negative Negative mg/dL [facility] LEUKOCYTES UA (POCT) Small Abnormal Negative [facility] NITRITE UA (POCT) Positive Abnormal Negative [facility] PH UA (POCT) 7 4.5 - 8.0 [facility] Protein Ql (U) 100 mg/dL Abnormal Negative [facility] SPECIFIC GRAVITY UA (POCT) 1.02 1.005 - 1.030 [facility] UROBILINOGEN UA (POCT) 0.2 Normal E.U./dL [facility] Location:[facility]ly [facility], [address] [place] [address], [place], [place], [id number] [place] [address] POINT OF CARE [facility] Comprehensive metabolic 2000 panelon 01-23-2025 Albumin [Mass/Vol] 3.8 g/dL Low 3.9-4.9 [facility] Comment on above: Order Comment: Speci men Type: BLOOD SPECIMENOrdering Facility: [facility] Address: [address] [place] [address] Performed By: #### 2 4323-8 ####[facility] LABIA [id number] [place] [address] [place] ALP [Catalytic activity/Vol] 95 U/L Normal 34-123 [facility] Comment on above: Order Comment: Speci men Type: BLOOD SPECIMENOrdering Facility: [facility] Address: [address] [place] [address] Performed By: #### 2 4323-8 ####[facility] LABCLIA [id number] [place] [id number] [place] ALT [Catalytic activity/Vol] 18 U/L Normal 7-38 [facility] Comment on above: Order Comment: Speci men Type: BLOOD SPECIMENOrdering Facility: [facility] Address: [address] [place] [address] Performed By: #### 2 4323-8 ####[facility] LABCLIA [id number] [place] [id number] [place] Anion gap [Moles/Vol] 10 mmol/L Normal 8-15 [facility] Comment on above: Order Comment: Speci men Type: BLOOD SPECIMENOrdering Facility: [facility] Address: [address] [place] [address] Performed By: #### 2 4323-8 ####[facility] LABCLIA [id number] [place] [id number] [place] AST [Catalytic activity/Vol] 25 U/L Normal 13-35 [facility] Comment on above: Order Comment: Speci men Type: BLOOD SPECIMENOrdering Facility: [facility] Address: [address] [place] [address] Performed By: #### 2 4323-8 ####[facility] LABCLIA [id number] [place] [id number] [place] Bilirubin [Mass/Vol] 0.2 mg/dL Normal 0.2-1.3 [facility] Comment on above: Order Comment: Speci men Type: BLOOD SPECIMENOrdering Facility: [facility] Address: [address] [place] [address] Performed By: #### 2 4323-8 ####[facility] LABCLIA [id number] [place] [id number] [place] Calcium [Mass/Vol] 9.0 mg/dL Normal 8.5-10.2 [facility] Comment on above: Order Comment: Speci men Type: BLOOD SPECIMENOrdering Facility: [facility] Address: [address] [place] [address] Performed By: #### 2 4323-8 ####[facility] LABCLIA [id number] [place] [id number] [place] Chloride [Moles/Vol] 107 mmol/L Normal 98-107 [facility] Comment on above: Order Comment: Speci men Type: BLOOD SPECIMENOrdering Facility: [facility] Address: [address] [place], [place] [id number] Performed By: #### 2 4323-8 ####[facility] LABCLIA [id number] [place] [id number] [place] CO2 [Moles/Vol] 24 mmol/L Normal 22-30 [facility] Comment on above: Order Comment: Speci men Type: BLOOD SPECIMENOrdering Facility: [facility] Address: [address] [place] [address] Performed By: #### 2 4323-8 ####[facility] LABIA [id number] [place] [address] [place] Creatinine [Mass/Vol] 0.64 mg/dL Normal 0.58-0.96 [facility] Comment on above: Order Comment: Speci men Type: BLOOD SPECIMENOrdering Facility: [facility] Address: [address] [place] [address] Performed By: #### 2 4323-8 ####[facility] LABIA [id number] [place] [address] [place] Creatinine and Glomerular filtration rate.predicted panel (S/P/Bld) 110 mL/min/1.73m??? Normal >=60 [facility] Comment on above: Order Comment: Speci men Type: BLOOD SPECIMENOrdering Facility: [facility] Address: [address] [place] [address] Result Comment: Kaur mated Glomerular Filtration Rate (eGFR) is calculated using the 2020 CKD-EPI creatinine equation. This equation utilizes serum creatinine, sex, and age as parameters. The creatinine assay has traceable calibration to isotope dilution-mass spectrometry. Refer to KDIGO guidelines for clinical interpretation. In patients with unstable renal function, e.g. those with acute kidney injury, the eGFR may not accurately reflect actual GFR. Performed By: #### 2 4323-8 ####[facility] LABIA [id number] [place] [id number] [place] Glucose [Mass/Vol] 88 mg/dL Normal 74-99 [facility] Comment on above: Order Comment: Speci men Type: BLOOD SPECIMENOrdering Facility: [facility] Address: [address] [place] [address] Result Comment: The [place] [employer] (ADA) provides guidance for cutoff values for fasting glucose and random glucose. The ADA defines fasting as no caloric intake for at least 8 hours. Fasting plasma glucose results between 100 to 125 mg/dL indicate increased risk for diabetes (prediabetes). Fasting plasma glucose results greater than or equal to 126 mg/dL meet the criteria for diagnosis of diabetes. In the absence of unequivocal hyperglycemia, results should be confirmed by repeat testing. In a patient with classic symptoms of hyperglycemia or hyperglycemic crisis, random plasma glucose results greater than or equal to 200 mg/dL meet the criteria for diagnosis of diabetes. Reference: Standards of Medical Care in Diabetes 2016, [place] [employer]. Diabetes Care. 2016.39(Suppl 1). Performed By: #### 2 4323-8 ####[facility] LABCLIA [id number] [place] [address] [place] Potassium [Moles/Vol] 4.6 mmol/L Normal 3.7-5.1 [facility] Comment on above: Order Comment: Speci men Type: BLOOD SPECIMENOrdering Facility: [facility] [facility] Address: [address] [place] [address] Performed By: #### 2 4323-8 ####[facility] LABCLIA [id number] [place] [id number] [place] Protein [Mass/Vol] 6.8 g/dL Normal 6.3-8.0 [facility] Comment on above: Order Comment: Speci men Type: BLOOD SPECIMENOrdering Facility: [facility] Address: [address] [place], [place] [id number] Performed By: #### 2 4323-8 ####[facility] LABCLIA [id number] [facility] [place] [id number] [place] Sodium [Moles/Vol] 141 mmol/L Normal 136-144 [facility] Comment on above: Order Comment: Speci men Type: BLOOD SPECIMENOrdering Facility: [facility] Address: [address] [place] [address] Performed By: #### 2 4323-8 ####[facility] LABCLIA [id number] [place] [address] [place] Urea nitrogen [Mass/Vol] 23 mg/dL High 7-21 [facility] Comment on above: Order Comment: Speci men Type: BLOOD SPECIMENOrdering Facility: [facility] Address: [address] [place] [address] Performed By: #### 2 4323-8 ####[facility] [id number] [place] [address] [place] Insulin SerPl-aCncon 28-2 025 Insulin Qn 6.1 uU/mL Normal 2.6-24.9 [facility] Comment on above: Order Comment: Speci men Type: BLOOD SPECIMENOrdering Facility: [facility] Address: [address] [place] [address] Performed By: #### 2 0448-7 ####[facility] [id number] [place] [address] [place] MR/BMS.BPon 01-23-2025 MR/BMS.BP [address], [address] [place] [address] OFFICE VISIT Date of Service: 01/23/25 MR#: [id number] Acct: [id number] Name: HECTOR LEON Rep #: [id number] : 1975 Provider: SANDRA villareal Age/Sex: 49/F Location[place] [facility] [place] Status: Signed Intake Vital Signs 12/12/24 07:49 01/23/25 10:00 Height 5 ft 1 in 5 ft 1 in Weight: 207 lb BMI 39.1 BP 116/82 H 128/75 H Blood Pressure Location Lt brachial Lt brachial Position Sitting Sitting Respiration 16 16 Pulse 87 69 Pulse Source Monitor Monitor BP Intake Visit Reasons: 6 wk FU Accompanied by: Self Allergies egg Allergy (Verified 01/23/25 10:27) Other lactose (lactose intolerant) Allergy (Verified 01/23/25 10:27) Constipation Food Allergies: Uncoded Adverse Reaction (Verified 01/23/25 10:27) BANANA, THROAT SWELLS milk Adverse Reaction (Verified 01/23/25 10:27) Constipation prednisone Adverse Reaction (Verified 01/23/25 10:27) Nausea/Vom/Diarrhea Medications ???Medication ???Instructions ???Recorded ???Confirmed ???Type polyethylene glycol 3350 17 4 g PO DAILY 01/10/24 01/23/25 His tory gram/dose oral powder (Miralax) psyllium husk 0.4 gram capsule 0.4 g PO DAILY 01/10/24 01/23/25 H istory (Metamucil) pantoprazole 40 mg tablet,delayed 40 mg PO DAILY #90 tabs 07/02/24 01/23/25 Rx release (Protonix) cholecalciferol (vitamin D3) 10 4,000 unit PO DAILY 09/03/2401/23 History mcg (400 unit) capsule topiramate 25 mg tablet 50 mg PO BID Migraines 09/03/24 History loratadine 10 mg tablet 10 mg PO QDAY 10/02/24 01/23/25 Hi story multivitamin 1 tab PO QDAY 10/02/24 01/23/25 Hi story buspirone 7.5 mg tablet 7.5 mg PO BID #60 tabs 01/23/25 Rx desvenlafaxine succinate 100 mg 100 mg PO DAILY #30 TABLETS 01/23/25 Rx tablet,extended release 24 hr hydroxyzine HCl 25 mg tablet 25 mg PO TID PRN anxiety #60 tabs 01/23/25 01/23/25 Rx PFSH Medical History (Updated 12/12/24 @ 08:59 by SANDRA Ellis) Wears glasses Post-menopausal Depression Anxiety Bite by animal Hemiplegic migraine Blackout History of IBS Non-smoker History of Holter monitoring History of echocardiogram Family history of colon cancer Personal history of colonic polyps IBS (irritable bowel syndrome) Migraine Back problem GERD (gastroesophageal reflux disease) Fatty liver Bilateral tinnitus Gallstones Morbid obesity Fibromyalgia Surgical History (Updated 11/08/24 @ 14:46 by Suzie Scott) History of hysterectomy Hx of colonoscopy S/P cholecystectomy S/P tonsillectomy and adenoidectomy H/O tubal ligation H/O: hysterectomy Family History Mother Age: 67 Rheumatoid arthritis Hypertension Osteoporosis Thyroid disorder Anemia Anxiety Father Age: 71 Hypertension Hyperlipemia Grandmother VTE (venous thromboembolism) Maternal grandmother. Colon cancer at 59yrs Blood coagulation disorder Age related osteoporosis Rheumatoid arthritis Brother Age: 44 VTE (venous thromboembolism) CVA (cerebral vascular accident) Hypertension Rheumatoid arthritis Grandfather Alcoholism Grandmother Diabetes Heart disease Grandfather Diabetes Heart disease Aunt Schizophrenia Social History adopted: No household members: spouse, family and children current occupational status: unemployed pets and animals: Yes pets and animals: cat(s), dog(s), fish and farm animals sexually active: Yes Smoking Status: Never smoker Electronic Cigarette Use: not used alcohol intake: current alcohol intake frequency: holidays/special occasions only substance use type: does not use diet: lactose free and other caffeine: Yes (1) Type: coffee frequency: does not exercise seatbelt use: always do you feel safe at home: Yes HPI History of Present Illness History provided by: patient HPI: Hector Leon is a 49 year old female patient presenting today for a follow up evaluation. Reports she has had some increased stress since last appointment with her family. Reports her daughter has moved in with then with the anticipation to move to a trailer on her property but it needs remodeled. Is also contemplating sending her other daughter back to public school rather than homeschooling. Has not been sleeping well with increased stress. Is struggling to fall asleep. Is having nightmares. Is getting about 6 hours but it is broken sleep. Has noticed benefit from buspirone but feels like life stressors have worsened for her and she is struggling more with this. Does feel more tearful. Denies SI/HI. Admits to feelings of depression daily. Does feel more fatigued and is pushing herself to do (more content not included)... [facility] Telephone (OBGYWM) -- HECTOR LEON ([id number]) 1975 F [place] Date Time Provider Department 01/15/25 [facility] OBGYWM During your visit today, we recorded the following information about you: Tian Beaver MA 01/15/2025 2:39 PM Signed Submitted PA for Zepbound and received response that it has been approved. Will notify patient. LORENA Jung Deidre, MD 01/15/2025 4:09 PM Signed Excellent. Thank you Allergies As of Date: 01/15/2025 Noted Allergy Reaction BANANA 02/21/2012 8 - GI Upset EGGS (EGG) 02/21/2012 8 - GI Upset LACTOSE 02/21/2012 5 - Intolerance PREDNISONE 06/28/2019 14 - Other: See Comments Comments: Black stools Date Reviewed: 01/14/2025 Reviewed by: Sofi Goldstein MA - Fully Assessed Reason for Visit: Insurance Authorization [1693] Prescriptions as of 01/15/2025 - busPIRone (BUSPAR) 5 mg tablet Take 1 tablet by mouth every 12 hours. - tirzepatide, weight loss (ZEPBOUND) 2.5 mg/0.5 mL pen injector Inject 2.5 mg subcutaneously one time a week. - desvenlafaxine ER (KHEDEZLA) 50 mg 24 hr tablet take 1 tablet by mouth once daily . START AFTER 7 DAY COURSE OF 25MG - MULTIVITAMIN ORAL Take by mouth. - loratadine (CLARITIN) 10 mg tablet - pantoprazole DR (PROTONIX) 40 mg tablet Take 1 tablet by mouth every afternoon. - INV VITAMIN D3 4000 UNIT OR [place] (IRB [id number]) CAPSULE - polyethylene glycol 3350 (MIRALAX) 17 gram/dose powder - psyllium husk (METAMUCIL) 3.4 gram/5.4 gram powd - topiramate (TOPAMAX) 25 mg tablet Take by mouth. One tablet daily for a week; then one tablet twice daily for a week; then one table three times daily for a week; then two tablets twice daily thereafter. 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] 10/22/2022 Vitamin D insufficiency [E55.9] 10/25/2022 History of cardiovascular stress test [Z92.89] 11/07/2023 Mixed hyperlipidemia [E78.2] 11/23/2023 Transient neurological symptoms [R29.818] 12/02/2023 Fatty liver [K76.0] 12/16/2023 Encounter Status:Closed by TIAN BEAVER on 01/15/25 [facility] CNOVon 01-14-2025 CNOV Office Visit (OBGYWM ) -- HECTOR LEON ([id number]) 1975 F [place] Date Time Provider Department 01/14/25 3:00 PM [facility] OBGISSEL During your visit today, we recorded the following information about you: Pulse Blood pressure Weight 80/minute 126/74 94.3 kg Fallon Larson MD 01/14/2025 4:42 PM Signed Some documentation from previous visit of 09/28/24 was copied and pasted, documentation has been reviewed and edited as necessary for today's visit. Patient Summary: Hector is a 49 year old Female who presents for follow-up evaluation of obesity/weight management to treat and prevent related co-morbidities. In our previous visits we have discussed lifestyle intervention including a nutrition recommendations and physical activity optimization. Her last office visit was 4 month ago. Assessment/plan from last visit: - stop phentermine (pt stopped yesterday when contacted office) - recommend EKG and HOLTER monitor- pt states PCP was willing to get this done- she will contact her. Pt will send results -discussed stress and impact on weight and hunger hormones -discussed if cleared by cardiology- may go back to phentermine or consider shorter acting diethylpropion - continue vit D supplement - Continue protonix for GERD -phentermine >5% TBW loss in initial 3 months of phentermine use qualifying for long-term off label treatment of obesity - taking topiramate by PCP for migraines - discussed routine exercise and impact on weight and weight maintenance - discussed increasing protein (sebastien while off phentermine to avoid cravings) - FITTE rx given - discussed tachycardia likely from Covid Interval History PT specifies the following items as new or significant updates since the last appointment: -more stress b/c daughter moved in with fiance - 3 cats - had colonoscopy- after that doesn't feel like she can get full- not making great choices and she knows that -not sleeping well- staying up late - had tilt table test- inconclusive. Still no diagnosis yet. But heart still racing at times off medication. Passes out at times. Weight loss since last vist: 6 lb Total weight lost: 41 lbs - Last Wt 01/14/25 : 94.3 kg (208 lb) 09/28/24 : 91.6 kg (202 lb) 06/25/24 : 102.9 kg (227 lb) 05/28/24 : 106.6 kg (235 lb) 04/10/24 : 112.9 kg (249 lb) Date: 04/10/2024 249 lb BMI: 47.05 5% weight loss = 236 lbs, 10% weight loss = 224 lbs Adjusted ideal body weight: 67.3 kg (148 lb 4.7 oz) Anti-obesity medications: Benefit:makes her stop thinking about food, doesn't feel hungry Adverse effects: none Anti-obesity medications: Topiramate. 50 mg bid Benefit:was started for migraines Adverse effects: none AOM Medications: Topiramate by Neurologist Weight promoting medications: Effexor 75mg changed to Desvenlafaxine Previous Diet (initial appointment): Awake - 7:30 B - coffee azerbaijani sweet cream, apple juice (8oz) [place] wrap taco velásquez, watermelon juice (8oz) , oatmeal (packet), toast, blueberries , turkey sausage , hash browns S - fruit L - chipolte bowl chicken w/ guac, apple/pecan salad w/ chicken , chicken wrap, almonds, pretzels,pizza, S - halo oranges D - tilapia, brown rice spag, carrots, ludwin, garlic bread , beats, beans, cucumbers, veggie pizza slices, cheesy bread , cream cheese ragoons S - peach cobbler blizzard sometimes , sweets Fluids: coffee juice, stopped soda, 100 oz water per day Bedtime - 11:30pm Quality of diet: 24hr recall suggests healthy diet. Characterization of diet:Unstructured, unhealthy snacking, and increased consumption of sugar sweetened beverages. Criminal Analyst of impaired eating habits:lack of satiety, emotion, and does go back for seconds- more protein- meat- loves red meat but can't eat after gallbladder Eating Disorder no Cravings: savory- karmen cheese steaks, sometimes sweets Dietary changes: B - Owyn 32g if not then may have [place], eggs, briseno, hashbrowns S - L - sometimes owyn protein shake, sometimes oikos yogurt, lactate cottage cheese- hot dogs, south korean fries, burgers, S - D - always a meat, spaghetti w/ protein, peas, carrots, broccoli, COD, celery, S - Fluids - water 101 oz per day. Eating 3 meals a day, including breakfast Increasing water intake Controlling portions Increasing protein Reducing sugar-sweetened beverages Reducing carbohydrates Eating less take out/fast food Current Barriers: reduced physical activity Exercise: not structured- but tries to walk up and down driveway stable Stress: yes- parents live with her stable Sleep: 7 hrs, no JOCELYN CrCl cannot be calculated (Patient's most recent lab result is older than the maximum 180 days allowed.). PAST MEDICAL HISTORY Diagnosis Date Acute cholecystitis 12/12/2023 s/p lap td Crohn's disease (HCC) 2000 crohns disease, rectal bleeding (more content not included)... Normal [facility] Tilt Tableon 12-25-2024 Tilt Table [facility] [address] [place] [address] 12/25/24 1412 MR#: [id number] Acct: [id number] Name: HECTOR LEON Rep #: [id number] : 1975 49 From: Damien Cardoso MD Attending Dr: Dr. Dangelo Lee MD Status: RE G CLI Ordering Dr: Dangelo Lee MD Date: 12/25/24 Location: [facility] Sex: F C Admitted: Staff Staff: Maru Vera and Mayr Alice Polanco Summary Pre Test Resting HR: 83 Pre Test Resting BP: 139/82 Minimum Test HR: 83 Maximum Test HR: 133 Minimum Test BP: 119/80 Maximum Test BP: 137/90 Reason for Test Termination: Reached Maximum Test Time Physician Tilt Table Report Patient's Physicians Primary Care Physician: Dangelo Lee Indications/Diagnosis: Dizziness Procedure Comments: Patient was brought to the noninvasive lab in the postabsorptive state. Informed consent was obtained. The initial heart rate was noted to be 83 bpm with a blood pressure 139/82 mmHg. The patient was then put in the 70 degree head upright tilt position for total duration of 20 minutes continuous EKG monitoring was performed. Patient complained of slight clamminess and mild chest tightness symptoms which dissipated. The patient was then put back in the recumbent position. She was given 0.4 mg of sublingual nitroglycerin and then put back in the 70 degree head upright tilt position. The heart rate went from 87 to 133 bpm with blood pressure remaining fairly stable initially 137/88 to 125/79. Patient complained of minimal sinus pressure. The heart rate and slowly went back to approximately 108 bpm with a blood pressure 131/74 mmHg. Summary: Head upright tilt test with inconclusive hemodynamic changes.POTS cannot be completely excluded. 12/25/241419 Date Damien Cardoso MD CC: Dr. Dangelo Lee MD Date Dictated: 12/25/241411 Date Transcribed: 12/25/241411 Finishing Area Operator: CO Signed Normal [facility] Basic Metabolic Profile (BMP )on 12-20-2024 BUN/CRE 32.4 RATIO High 10- [facility] Comment on above: Performed By: #### L 800.1280, L100.0100, L3130.0010, L803.2200, L504.2610, L501.6710, L501.9985, L3890.6005, L3300.0100, L501.9520, L500.4100, L3400.0700, L3100.5450, L3300.1200, L503.6550, L300.3900, L3100.1850, L500.4050, L503.6030, L3000.0375, L3100.3425 #### [facility] [address] [place], [address] Calcium [Mass/Vol] 9.0 mg/dL Normal 7.6-11.0 [facility] Comment on above: Performed By: #### L 800.1280, L100.0100, L3130.0010, L803.2200, L504.2610, L501.6710, L501.9985, L3890.6005, L3300.0100, L501.9520, L500.4100, L3400.0700, L3100.5450, L3300.1200, L503.6550, L300.3900, L3100.1850, L500.4050, L503.6030, L3000.0375, L3100.3425 #### [facility] [address] [place], [place], [id number] Chloride [Moles/Vol] 109 mmol/L High 98-108 [facility] Comment on above: Performed By: #### L 800.1280, L100.0100, L3130.0010, L803.2200, L504.2610, L501.6710, L501.9985, L3890.6005, L3300.0100, L501.9520, L500.4100, L3400.0700, L3100.5450, L3300.1200, L503.6550, L300.3900, L3100.1850, L500.4050, L503.6030, L3000.0375, L3100.3425 #### [facility] [address] [place], [place], [id number] CO2 [Moles/Vol] 22.8 mmol/L Normal 21.0-32.0 [facility] Comment on above: Performed By: #### L 800.1280, L100.0100, L3130.0010, L803.2200, L504.2610, L501.6710, L501.9985, L3890.6005, L3300.0100, L501.9520, L500.4100, L3400.0700, L3100.5450, L3300.1200, L503.6550, L300.3900, L3100.1850, L500.4050, L503.6030, L3000.0375, L3100.3425 #### [facility] [address] [place], [address] Creatinine [Mass/Vol] 0.69 mg/dL Low 0.70-1.20 [facility] Comment on above: Performed By: #### L 800.1280, L100.0100, L3130.0010, L803.2200, L504.2610, L501.6710, L501.9985, L3890.6005, L3300.0100, L501.9520, L500.4100, L3400.0700, L3100.5450, L3300.1200, L503.6550, L300.3900, L3100.1850, L500.4050, L503.6030, L3000.0375, L3100.3425 #### [facility] [address] [place], [place], [id number] GAP 10 Normal 5-15 [facility] Comment on above: Performed By: #### L 800.1280, L100.0100, L3130.0010, L803.2200, L504.2610, L501.6710, L501.9985, L3890.6005, L3300.0100, L501.9520, L500.4100, L3400.0700, L3100.5450, L3300.1200, L503.6550, L300.3900, L3100.1850, L500.4050, L503.6030, L3000.0375, L3100.3425 #### [facility] [address] [place], [place], [address] GFR/1.73 sq M.predicted among non-blacks MDRD (S/P/Bld) [Vol rate/Area] 108 mL/min/{1.73_m2} Normal >60 [facility] Comment on above: Result Comment: mL/m in/1.73m2 CKD-EPI Creatinine Equation (2020) Performed By: #### L 800.1280, L100.0100, L3130.0010, L803.2200, L504.2610, L501.6710, L501.9985, L3890.6005, L3300.0100, L501.9520, L500.4100, L3400.0700, L3100.5450, L3300.1200, L503.6550, L300.3900, L3100.1850, L500.4050, L503.6030, L3000.0375, L3100.3425 #### [facility] [address] [facility] [address] [place], [place], [id number] (746) Glucose [Mass/Vol] 100 mg/dL High 70-99 [facility] Comment on above: Performed By: #### L 800.1280, L100.0100, L3130.0010, L803.2200, L504.2610, L501.6710, L501.9985, L3890.6005, L3300.0100, L501.9520, L500.4100, L3400.0700, L3100.5450, L3300.1200, L503.6550, L300.3900, L3100.1850, L500.4050, L503.6030, L3000.0375, L3100.3425 #### [facility] [address] [place], [id number] (260) Potassium [Moles/Vol] 4.4 mmol/L Normal 3.3-5.1 [facility] Comment on above: Performed By: #### L 800.1280, L100.0100, L3130.0010, L803.2200, L504.2610, L501.6710, L501.9985, L3890.6005, L3300.0100, L501.9520, L500.4100, L3400.0700, L3100.5450, L3300.1200, L503.6550, L300.3900, L3100.1850, L500.4050, L503.6030, L3000.0375, L3100.3425 #### [facility] [address] [place], [place], [id number] (688) Sodium [Moles/Vol] 141 mmol/L Normal 133-145 [facility] Comment on above: Performed By: #### L 800.1280, L100.0100, L3130.0010, L803.2200, L504.2610, L501.6710, L501.9985, L3890.6005, L3300.0100, L501.9520, L500.4100, L3400.0700, L3100.5450, L3300.1200, L503.6550, L300.3900, L3100.1850, L500.4050, L503.6030, L3000.0375, L3100.3425 #### [facility] [address] [place], [place], [id number] Urea nitrogen [Mass/Vol] 22 mg/dL High 4-19 [facility] Comment on above: Performed By: #### L 800.1280, L100.0100, L3130.0010, L803.2200, L504.2610, L501.6710, L501.9985, L3890.6005, L3300.0100, L501.9520, L500.4100, L3400.0700, L3100.5450, L3300.1200, L503.6550, L300.3900, L3100.1850, L500.4050, L503.6030, L3000.0375, L3100.3425 #### [facility] [address] [facility] [place], [address] CBC-Complete Blood Cnt No Di ffon 12-20-2024 Erythrocyte distribution width (RBC) [Ratio] 12.7 % Normal 11.6-14.6 [facility] Comment on above: Performed By: #### L 800.1280, L100.0100, L3130.0010, L803.2200, L504.2610, L501.6710, L501.9985, L3890.6005, L3300.0100, L501.9520, L500.4100, L3400.0700, L3100.5450, L3300.1200, L503.6550, L300.3900, L3100.1850, L500.4050, L503.6030, L3000.0375, L3100.3425 #### [facility] [address] [place], [address] Hematocrit (Bld) [Volume fraction] 40.5 % Normal 37-47 [facility] Comment on above: Performed By: #### L 800.1280, L100.0100, L3130.0010, L803.2200, L504.2610, L501.6710, L501.9985, L3890.6005, L3300.0100, L501.9520, L500.4100, L3400.0700, L3100.5450, L3300.1200, L503.6550, L300.3900, L3100.1850, L500.4050, L503.6030, L3000.0375, L3100.3425 #### [facility] [address] [place], [address] Hemoglobin (Bld) [Mass/Vol] 13.7 g/dL Normal 12.0-15.0 [facility] Comment on above: Performed By: #### L 800.1280, L100.0100, L3130.0010, L803.2200, L504.2610, L501.6710, L501.9985, L3890.6005, L3300.0100, L501.9520, L500.4100, L3400.0700, L3100.5450, L3300.1200, L503.6550, L300.3900, L3100.1850, L500.4050, L503.6030, L3000.0375, L3100.3425 #### [facility] [address] [place], [address] MCH (RBC) [Entitic mass] 31.1 pg Normal 27.0-32.0 [facility] Comment on above: Performed By: #### L 800.1280, L100.0100, L3130.0010, L803.2200, L504.2610, L501.6710, L501.9985, L3890.6005, L3300.0100, L501.9520, L500.4100, L3400.0700, L3100.5450, L3300.1200, L503.6550, L300.3900, L3100.1850, L500.4050, L503.6030, L3000.0375, L3100.3425 #### [facility] [address] [facility] [place], [address] MCHC (RBC) [Mass/Vol] 33.8 g/dL Normal 32-36 [facility] Comment on above: Performed By: #### L 800.1280, L100.0100, L3130.0010, L803.2200, L504.2610, L501.6710, L501.9985, L3890.6005, L3300.0100, L501.9520, L500.4100, L3400.0700, L3100.5450, L3300.1200, L503.6550, L300.3900, L3100.1850, L500.4050, L503.6030, L3000.0375, L3100.3425 #### [facility] [address] [place], [address] MCV (RBC) [Entitic vol] 92.0 fL Normal 81-99 [facility] Comment on above: Performed By: #### L 800.1280, L100.0100, L3130.0010, L803.2200, L504.2610, L501.6710, L501.9985, L3890.6005, L3300.0100, L501.9520, L500.4100, L3400.0700, L3100.5450, L3300.1200, L503.6550, L300.3900, L3100.1850, L500.4050, L503.6030, L3000.0375, L3100.3425 #### [facility] [address] [facility] [place], [address] Platelet mean volume (Bld) [Entitic vol] 9.4 fL Normal 6.2-12.0 [facility] Comment on above: Performed By: #### L 800.1280, L100.0100, L3130.0010, L803.2200, L504.2610, L501.6710, L501.9985, L3890.6005, L3300.0100, L501.9520, L500.4100, L3400.0700, L3100.5450, L3300.1200, L503.6550, L300.3900, L3100.1850, L500.4050, L503.6030, L3000.0375, L3100.3425 #### [facility] [address] [facility] [place], [address] Platelets (Bld) [#/Vol] 299 10*3/uL Normal 150-450 [facility] Comment on above: Performed By: #### L 800.1280, L100.0100, L3130.0010, L803.2200, L504.2610, L501.6710, L501.9985, L3890.6005, L3300.0100, L501.9520, L500.4100, L3400.0700, L3100.5450, L3300.1200, L503.6550, L300.3900, L3100.1850, L500.4050, L503.6030, L3000.0375, L3100.3425 #### [facility] [address] [facility] [place], [place], [address] (367) RBC (Bld) [#/Vol] 4.40 10*6/uL Normal 4.2-5.4 [facility] [facility] Comment on above: Performed By: #### L 800.1280, L100.0100, L3130.0010, L803.2200, L504.2610, L501.6710, L501.9985, L3890.6005, L3300.0100, L501.9520, L500.4100, L3400.0700, L3100.5450, L3300.1200, L503.6550, L300.3900, L3100.1850, L500.4050, L503.6030, L3000.0375, L3100.3425 #### [facility] [address] [place], [place], [id number] RDW SD 42.6 fl Normal 35.1-43.9 [facility] Comment on above: Performed By: #### L 800.1280, L100.0100, L3130.0010, L803.2200, L504.2610, L501.6710, L501.9985, L3890.6005, L3300.0100, L501.9520, L500.4100, L3400.0700, L3100.5450, L3300.1200, L503.6550, L300.3900, L3100.1850, L500.4050, L503.6030, L3000.0375, L3100.3425 #### [facility] [address] [place], [address] WBC (Bld) [#/Vol] 6.6 10*3/uL Normal 4.4-11.0 [facility] Comment on above: Performed By: #### L 800.1280, L100.0100, L3130.0010, L803.2200, L504.2610, L501.6710, L501.9985, L3890.6005, L3300.0100, L501.9520, L500.4100, L3400.0700, L3100.5450, L3300.1200, L503.6550, L300.3900, L3100.1850, L500.4050, L503.6030, L3000.0375, L3100.3425 #### [facility] [address] [place], [address] /Ines 12-12-2024 /IVELISSE.BP [place], [address] [place] [address] OFFICE VISIT Date of Service: 12/12/24 MR#: [id number] Acct: [id number] Name: LEONHECTOR Rep #: [id number] : 1975 Provider: SANDRA villareal Age/Sex: 49/F Location[place] [facility] Status: Signed Intake Vital Signs 10/15/24 14:59 11/13/24 07:50 12/12/24 07:49 Height 5 ft 1 in 5 ft 1 in 5 ft 1 in Weight: 207 lb BMI 39.1 BP 116/82 H Blood Pressure Location Lt brachial Position Sitting Respiration 16 Pulse 87 Pulse Source Monitor BP Intake Visit Reasons: anxiety/ depression Accompanied by: Allergies egg Allergy (Verified 12/12/24 07:52) Other lactose (lactose intolerant) Allergy (Verified 12/12/24 07:52) Constipation Food Allergies: Uncoded Adverse Reaction (Verified 12/12/24 07:52) BANANA, THROAT SWELLS milk Adverse Reaction (Verified 12/12/24 07:52) Constipation prednisone Adverse Reaction (Verified 12/12/24 07:52) Nausea/Vom/Diarrhea Medications ???Medication ???Instructions ???Recorded ???Confirmed ???Type polyethylene glycol 3350 17 4 g PO DAILY 01/10/24 12/12/24 His tory gram/dose oral powder (Miralax) psyllium husk 0.4 gram capsule 0.4 g PO DAILY 01/10/24 12/12/24 H istory (Metamucil) pantoprazole 40 mg tablet,delayed 40 mg PO DAILY #90 tabs 07/02/24 12/12/24 Rx release (Protonix) cholecalciferol (vitamin D3) 10 4,000 unit PO DAILY 09/03/2412/12 History mcg (400 unit) capsule topiramate 25 mg tablet 50 mg PO BID Migraines 09/03/24 History loratadine 10 mg tablet 10 mg PO QDAY 10/02/24 12/12/24 Hi story multivitamin 1 tab PO QDAY 10/02/24 12/12/24 Hi story desvenlafaxine succinate 100 mg 100 mg PO DAILY #30 TABLETS 12/12/24 Rx tablet,extended release 24 hr buspirone 5 mg tablet 5 mg PO BID #60 tabs 12/12/2411/27 Rx PFSH Medical History (Updated 12/12/24 @ 08:59 by SANDRA Ellis) Wears glasses Post-menopausal Depression Anxiety Bite by animal Hemiplegic migraine Blackout History of IBS Non-smoker History of Holter monitoring History of echocardiogram Family history of colon cancer Personal history of colonic polyps IBS (irritable bowel syndrome) Migraine Back problem GERD (gastroesophageal reflux disease) Fatty liver Bilateral tinnitus Gallstones Morbid obesity Fibromyalgia Surgical History (Updated 11/08/24 @ 14:46 by Suzie Scott) History of hysterectomy Hx of colonoscopy S/P cholecystectomy S/P tonsillectomy and adenoidectomy H/O tubal ligation H/O: hysterectomy Family History Mother Age: 67 Rheumatoid arthritis Hypertension Osteoporosis Thyroid disorder Anemia Anxiety Father Age: 71 Hypertension Hyperlipemia Grandmother VTE (venous thromboembolism) Maternal grandmother. Colon cancer at 59yrs Blood coagulation disorder Age related osteoporosis Rheumatoid arthritis Brother Age: 44 VTE (venous thromboembolism) CVA (cerebral vascular accident) Hypertension Rheumatoid arthritis Grandfather Alcoholism Grandmother Diabetes Heart disease Grandfather Diabetes Heart disease Aunt Schizophrenia Social History adopted: No household members: spouse, family and children current occupational status: unemployed pets and animals: Yes pets and animals: cat(s), dog(s), fish and farm animals sexually active: Yes Smoking Status: Never smoker Electronic Cigarette Use: not used alcohol intake: current alcohol intake frequency: holidays/special occasions only substance use type: does not use diet: lactose free and other caffeine: Yes (1) Type: coffee frequency: does not exercise seatbelt use: always do you feel safe at home: Yes HPI History of Present Illness History provided by: patient HPI: Hector Leon is a 49 year old female patient presenting today for an intake evaluation. Patient presents today with major concern for anxiety. Does report feelings of depression as well that can get overwhelming. Does report ruminating on things often. Admits to difficulties with letting go of the past and holding on to grudges. Reports since beginning to take Pristiq she has been sleeping better, able to function better throughout the day, and feels less overwhelmed. Sleep: Has had difficulties with staying asleep and falling asleep but does feel sleep has improved with Pristiq. Has had nightmares in the past but nothing now. Denies current concerns with falling asleep or staying asleep. 6-7 hours per night. Denies any daytime napping. Interest: With Pristiq is feeling depressed less than half the time but before that was feeling depressed more than half the time. Does find nadia i (more content not included)... Normal [facility] Colonoscopy Reporton 025 Colonoscopy Report [facility] Medical Records Department [address] [place] [address] Colonoscopy Report MR#: [id number] Acct: [id number] Name: HECTOR LEON Rep #: [id number] : 1975 49 From: Abiodun He MD PCP: Dr. Dangelo Lee MD Status:[facility] Patient Name: Hector Leon Procedure Date: 11/13/2024 8:37 AM Date of : 1975 Age: 49 Procedure: Colonoscopy Indications: High risk colon cancer surveillance: Personal history of colonic polyps Providers: Abiodun He MD Referring MD: Dangelo Lee Md Medicines: See the Anesthesia note for documentation of the administered medications Patient Profile: Last Colonoscopy: several years ago. Complications: No immediate complications. Procedure: Pre-Anesthesia Assessment: - The heart rate, respiratory rate, oxygen saturations, blood pressure, adequacy of pulmonary ventilation, and response to care were monitored throughout the procedure. After I obtained informed consent, the scope was passed under direct vision. Throughout the procedure, the patient's blood pressure, pulse, and oxygen saturations were monitored continuously. The Colonoscope was introduced through the anus and advanced to the cecum, identified by the appendiceal orifice, ileocecal valve and palpation. The colonoscopy was performed without difficulty. The patient tolerated the procedure well. The quality of the bowel preparation was good. Scope In: 9:05:23 AM Scope Withdrawal Time 0 hours 10 minutes 23 seconds Scope Out: 9:21:16 AM Total Procedure Duration Time 0 hours 15 minutes 53 seconds Findings: The perianal and digital rectal examinations were normal. Pertinent negatives include normal sphincter tone. The colon (entire examined portion) appeared normal. No biopsies or other specimens were collected for this exam. Anal papilla(e) were hypertrophied. No biopsies or other specimens were collected for this exam. The entire examined colon appeared normal on direct and retroflexion views. Impression: - The entire examined colon is normal. No specimens collected. - Anal papilla(e) were hypertrophied. No specimens collected. - The entire examined colon is normal on direct and retroflexion views. Recommendation: - Discharge patient to home (via wheelchair). - Resume previous diet today. - Continue present medications. - Repeat colonoscopy in 5 years for surveillance. - Telephone my office for study results in 1 week. Procedure Code(s): --- Professional --- G0105, Colorectal cancer screening; colonoscopy on individual at high risk Diagnosis Code(s): --- Professional --- K62.89, Other specified diseases of anus and rectum Z86.010, Personal history of colonic polyps CPT copyright 2021 [employer]. All rights reserved. The codes documented in this report are preliminary and upon commercial internship review may be revised to meet current compliance requirements. Abiodun He MD 11/13/2024 9:28:58 AM This report has been signed electronically. Number of Addenda: 0 Note Initiated On: 11/13/2024 8:37 AM 11/13/2429 Date Abiodun He MD Cosigner Signature: Date (if indicated) CC: Dr. Dangelo Lee MD; Dr. Abiodun He MD Date Dictated: 11/13/24 0837 Date Transcribed: Finishing Area Operator: CARLINE Signed [facility] MR/POSTOP.Sara 11-13-2024 MR/POSTOP.[facility] Medical Records Department [address] [place] [address] Anesthesia Postop Eval I 11/13/24929 MR#: [id number] Acct: [id number] Name: HECTOR LEONIL Rep #: [id number] : 1975 49 From: Eh Henry CRNA PCP: Dr. Dangelo Lee MD Status:REG [facility] [place] [facility] Race: C Location: [place] [address] Anesthesia: Postop Eval I Current Vital Signs Temperature: 97.8 F Pulse Rate: 97 Blood Pressure: 114/85 Respiratory Rate: 16 Pulse Ox: 98 Assessment Airway patent: Yes Spontaneous unlabored respirations: Yes nausea: No Vomiting: No Anesthesia Complication: No Fluid Hydration Crystalloid volume administer (ml): 30 Total IV fluid infused: 30 Progress Note Anesthesia document: Postop Eval 1 completed: Yes 11/13/24930 Date Eh Henry PUBLIC ADMINISTRATION TEACHER Cosigner Signature: Date CC: Signed Normal [facility] MR/[id number] 11-13-2024 /[facility] Medical Records Department [address] [place] [address] Anesthesia Postop Eval II 11/13/24 0937 MR#: [id number] Acct: [id number] Name: HECTOR LEONIL Rep #: [id number] : 1975 49 From: Darinel Grace MD PCP: Dr. Dangelo Lee MD Status:REG [facility] Race: C Location: [place] [address] Anesthesia Postop Eval I Sum Postop Eval Completion status Anesthesia document: Postop Eval 1 completed: Yes Anesthesia Postop Eval I Summary Anesthesia Postop Eval I Summary: Anesthesia Postop Eval I: Assessment Summary Airway patent Yes 11/13/24 09:30 PUBLIC ADMINISTRATION TEACHER.TNES Spontaneous unlabored Yes 11/13/24 09:30 PUBLIC ADMINISTRATION TEACHER.TNES respirations Mental status nausea No 11/13/24 09:30 PUBLIC ADMINISTRATION TEACHER.TNES Vomiting No 11/13/24 09:30 PUBLIC ADMINISTRATION TEACHER.TNES Anesthesia Postop Eval I: Fluid Summary Crystalloid volume administer 30 11/13/24 09:30 PUBLIC ADMINISTRATION TEACHER.TNES (ml) Colloids volume administered ( ml) Blood Product volume administered (ml) Total IV fluid infused 30 11/13/24 09:30 PUBLIC ADMINISTRATION TEACHER.TNES Anesthesia Postop Eval I: Summary Notes Anesthesia Complication No 11/13/24 09:30 PUBLIC ADMINISTRATION TEACHER.TNES Anesthesia Complication Comment: Post-operative progress note Anesthesia: Postop Eval II Evaluation Mental status: Awake Pain Level: 0 nausea: No Vomiting: No Complications Anesthesia Complication: No 11/13/24936 Date Darinel Grace MD Cosigner Signature: Date CC: Signed Normal [facility] MR/PAT.PATRICKon 11-08-2024 MR/[facility] Medical Records Department [address] [place] [address] PAT - Anesthesia 11/08/24 1641 MR#: [id number] Acct: [id number] Name: HECTOR LEON Rep #: [id number] : 1975 49 From: Darinel Grace MD PCP: Dr. 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 When Was Last Pacemaker Check QUESTION #4 FULL TEXT: You/Your Family Experience fever (hyperthermia) with Anesthesia Last Oral Intake Last Oral intake: Last Oral Intake NPO since Meds taken in AM with sips of water? 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 - electrical technician instructor: PONV - electrical technician instructor Female Yes 11/08/24 14:46 HX of Motion Sickness No 11/08/24 14:46 HX of N/V After Surgery No 11/08/24 14:46 Non-Smoker Yes 11/08/24 14:46 Duration of Surgery greater No 11/08/24 14:46 than 60 minutes Number of Risk Factors 2 11/08/24 14:46 PONV Score Moderate Risk 11/08/24 14:46 Height Weight Height Weight: Anesthesia: Height Weight Height 5 ft 1 in 10/02/24 09:44 Respiratory Assessment Respiratory Assessment - electrical technician instructor: Respiratory Tract Infection Hx - electrical technician instructor Hx Respiratory Tract Infection No 11/08/24 14:46 STOP Sleep Apnea STOP Sleep Apnea - electrical technician instructor: STOP Sleep Apnea - electrical technician instructor Hx Hypertension No 11/08/24 14:46 Hx Sleep Apnea No 11/08/24 14:46 CPAP No 12/15/23 12:38 BIPAP Do you snore loudly (louder No 11/08/24 14:46 than talking or can be heard Do you often feel tired/ No 11/08/24 14:46 fatigued/ sleepy during daytime? Has anyone observed you stop No 11/08/24 14:46 breathing during sleep? STOP Results Negative 11/08/24 14:46 QUESTION #5 FULL TEXT : Do you snore loudly (louder than talking or can be heard through closed doors)? Tobacco Use History Tobacco Use History - electrical technician instructor: Tobacco Use History - electrical technician instructor Tobacco Use Non-smoker 12/15/23 12:38 Smoking Status Never smoker 11/08/24 14:46 Hx Tobacco Use No 11/08/24 14:46 Years Smoking Packs Smoked per Day Smoking Cessation Date was within the last 15 years Hx Smoking Cessation Date Hx Smoking Cessation No 11/08/24 14:46 Counseling Hematologic Medial History Hematologic Hx - electrical technician instructor: Hematologic Medical Hx - provider network manager Hx of Blood Transfusion No 11/08/24 14:46 Hx of Transfusion in last 3 No 11/08/24 14:46 Months Date of Last Transfusion (if within last 3 months) Ever experience any problems No 11/08/24 14:46 with transfusion(s)? Specify any problems Hx of Preganancy in last 3 No 11/08/24 14:46 Months Nurse Filling Out Transfusion [facility] 11/08/24 14:46 Questions: Date: 11/08/24 11/08/24 14:46 Time: 14:58 11/08/24 14:46 Patient unable to answer at this time (ie. confused, unrespo /Reproduction History /Reproductive History - electrical technician instructor: /Reproductive Hx- electrical technician instructor Hx Now No 11/08/24 14:46 Gestational Age (in weeks): EDC: Hx Hx Para Hx Section SAB No 11/08/24 14:46 [facility] Medical History (Updated 11/08/24 @ 14:57 by Suzie Scott) Wears glasses Post-menopausal Depression Anxiety Bite by animal Hemiplegic migraine Blackout History of IBS Non-smoker History of Holter monitoring History of echocardiogram Family history of colon cancer Personal history of colonic polyps IBS (irritable bowel syndrome) Migraine Back problem GERD (gastroesophageal reflux disease) Fatty liver Bilateral tinnitus Gallstones Morbid obesity Fibromyalgia Home Medications ???Medication ???Instructions ???Recorded ???Last Taken ???Type polyethylene glycol 3350 17 4 g PO DAILY 01/10/24 Unknown Hist ory gram/dose oral powder (Miralax) psyllium husk 0.4 gram capsule 0.4 g PO DAILY 01/10/24 Unknown Hi story (Metamucil) pantoprazole 40 mg tablet,delayed 40 mg PO DAILY #90 tabs 07/02/24 U (more content not included)... Normal [facility] Internal Medicine Office Vis saul 10-11-2024 Internal Medicine Office Visit [facility] [address] [place] [address] [address] [place], [place] [address] OFFICE VISIT Date of Service: 10/15/24 MR#: [id number] Acct: [id number] Name: HECTOR LEON Rep #: [id number] : 1975 Provider: Dr. Dangelo santiago MD Age/Sex: 49/F Location: [facility] Status: Signed Intake Vital Signs 09/03/24 07:57 10/02/24 09:44 10/15/24 14:59 10/15/24 16:34 10/15/24 16:35 10/15/24 16:35 Height 5 ft 1 in 5 ft 1 in 5 ft 1 in Weight: 200 lb BMI 37.8 BP 118/84 H 124/84 H 126/84 H 136/86 H Blood Pressure Location Lt brachial Position Sitting Supine Sitting Standing Respiration 14 Pulse 87 80 72 117 H Pulse Source Monitor Temp 97.4 F L Temp Source Temporal Pulse Oximetry (%) 99 Oxygen Delivery Method room air Intake Visit Reasons: 6 wk FU Dynamics Ax Technical Architect Required: No Accompanied by: Is patient in pain?: No Allergies egg Allergy (Verified 10/15/24 14:57) Other lactose (lactose intolerant) Allergy (Verified 10/15/24 14:57) Constipation Food Allergies: Uncoded Adverse Reaction (Verified 10/15/24 14:57) BANANA, THROAT SWELLS milk Adverse Reaction (Verified 10/15/24 14:57) Constipation prednisone Adverse Reaction (Verified 10/15/24 14:57) Nausea/Vom/Diarrhea Medications ???Medication ???Instructions ???Recorded ???Confirmed ???Type polyethylene glycol 3350 17 4 g PO DAILY 01/10/24 10/15/24 His tory gram/dose oral powder (Miralax) psyllium husk 0.4 gram capsule 0.4 g PO DAILY 01/10/24 10/15/24 H istory (Metamucil) pantoprazole 40 mg tablet,delayed 40 mg PO DAILY #90 tabs 07/02/24 10/15/24 Rx release (Protonix) cholecalciferol (vitamin D3) 10 4,000 unit PO DAILY 09/03/2410/15 History mcg (400 unit) capsule topiramate 25 mg tablet 50 mg PO BID Migraines 09/03/24 History loratadine 10 mg tablet 10 mg PO QDAY 10/02/24 10/15/24 Hi story multivitamin 1 tab PO QDAY 10/02/24 10/15/24 Hi story desvenlafaxine 100 mg 100 mg PO QDAY #30 tabs 10/15/24 0 10/15/24 Rx tablet,extended release 24 hr PFSH Medical History Family history of colon cancer Personal history of colonic polyps IBS (irritable bowel syndrome) Migraine Back problem GERD (gastroesophageal reflux disease) Fatty liver Bilateral tinnitus Gallstones Morbid obesity Fibromyalgia Surgical History Hx of colonoscopy S/P cholecystectomy S/P tonsillectomy and adenoidectomy H/O tubal ligation H/O: hysterectomy Family History Mother Age: 67 Rheumatoid arthritis Hypertension Osteoporosis Thyroid disorder Anemia Anxiety Father Age: 71 Hypertension Hyperlipemia Grandmother VTE (venous thromboembolism) Maternal grandmother. Colon cancer at 59yrs Blood coagulation disorder Age related osteoporosis Rheumatoid arthritis Brother Age: 44 VTE (venous thromboembolism) CVA (cerebral vascular accident) Hypertension Rheumatoid arthritis Grandfather Alcoholism Grandmother Diabetes Heart disease Grandfather Diabetes Heart disease Aunt Schizophrenia Social History adopted: No household members: spouse, family and children current occupational status: unemployed pets and animals: Yes pets and animals: cat(s), dog(s), fish and farm animals sexually active: Yes Smoking Status: Never smoker Electronic Cigarette Use: not used alcohol intake: current alcohol intake frequency: holidays/special occasions only substance use type: does not use diet: lactose free and other caffeine: Yes (1) Type: coffee frequency: does not exercise seatbelt use: always do you feel safe at home: Yes HPI HPI Details: HECTOR LEON, is a 49 F who presents to the office today for a follow up. She is up to date on her routine blood work and screening. She previously declined a flu shot. She doesn't smoke and doesn't need any refills. She reports she is eating healthy and reports she has been more active. At her last office visit, she continued to have concerns about her mental health. Genetic testing was completed and she was started on pristiq. She reports that she has been doing well. She thinks, however, she may need her dose adjusted. She reports she has ongoing anxiety. She reports her daughter recently moved in with them with her fiance and 3 cats. She reports her migraines have been intermittent. She she gets a facial droop and light sensitivity with the migraines as well. She also reports changes in temperatures seems to flare it up as well. She is still following with neurology, but needs to schedule a follow up stating she hasn't been seen since February. She does think the topamax is (more content not included)... Normal [facility] ABD Limited w/ Elastographyo n 10-01-2024 ABD Limited w/ Elastography [facility] Imaging Services [address] [place], [place] [address] ABD Limited w/ Elastography MR#: [id number] Acct: [id number] Name: HECTOR LEON Rep #: [id number] : 1975 F 49 From: Maury littlejohn MD PCP: Dr. Dangelo Lee MD Status: REG CLI Study: ABD Limited w/ Elastography Date of Exam: 11/20 Exam# [id number] Ordering Dr: Sagar Ramirez MD PROCEDURE: ABD LIMITED W/ ELASTOGRAPHY REASON FOR EXAM: Liver fibrosis. COMPARISON: Comparison is made with prior study dated December 12, 2023. TECHNIQUE: Right upper quadrant abdominal ultrasound. [facility] Elast[facility] shear wave elastography for non- invasive assessment of liver tissue stiffness. . FINDINGS: LIVER: Size: Grossly normal Length: 13.6 cm Echotexture: Diffusely echogenic suggesting fatty infiltration Contour: Normal Lesions: None identified Elastography: EQI Med: 9.2 kPa GALLBLADDER: Surgically absent. COMMON BILE DUCT: 8.4 mm . PANCREAS: Visualized portions are sonographically unremarkable. Visualized portions of the right kidney are unremarkable. No right upper quadrant ascites. The spleen is not enlarged. It measures 9.8 cm 4.1 cm x 4.2 cm. US/ABD Limited w/ Elastography IMPRESSION: F2 F3 Reference Values: SRU <1.37 m/s (5.7kPa): No to mild fibrosis 1.37 m/s - 2.2 m/s: Moderate to severe fibrosis >2.2 m/s (15kPa): Significant fibrosis / cirrhosis METAVIR Score F2 or higher: 1.34 m/s (5.7kPa) F3 or higher: 1.55 m/s (7.3kPa) F4: 1.80 m/s (10kPa) * If the IQR/Med is >30%, the variance in the measurements is a large and the accuracy of the measurement may be in question. Reading Location: [facility] CC: Dr. Dangelo Lee MD; Dr. Sagar Ramirez MD Finishing Area Operator: Signed Normal [facility] SCRN MAMM (CAD)W/ESE BILATo n 10-01-2024 SCRN MAMM (CAD)W/ESE BILAT [facility] Imaging Services [address] [place] [address] SCRN MAMM (CAD)W/ESE BILAT MR#: [id number] Acct: [id number] Name: HECTOR LEON Rep #: [id number] : 1975 F 49 From: Maury littlejohn MD PCP: Dr. Dangelo Lee MD Status: REG CLI Study: SCRN MAMM (CAD)W/ESE BILAT Date of Exam: 11/20 Exam# [id number] Ordering Dr: Dangelo Lee MD PROCEDURE: SCRN MAMM (CAD)W/ESE BILAT REASON FOR EXAM: F, Age 49 y/o, routine annual mammographic follow-up. Aunt with breast cancer. Prior outside examination dated July 04, 2019. TECHNIQUE: Bilateral screening digital breast tomosynthesis with 2D and 3D images. Computer aided detection. COMPARISON: Prior exam(s) dating back to outside examination dated July 04, 2019.. FINDINGS: There are scattered areas of fibroglandular density. No suspicious masses, areas of developing architectural distortion, or suspicious calcifications. BI/SCRN MAMM (CAD)W/ESE BILAT IMPRESSION: BI-RADS 1: NEGATIVE. RECOMMEND ANNUAL MAMMOGRAPHIC SCREENING. Follow-up code: Routine Follow-up The patient will be notified of the results by letter. Reading Location: [id number] CC: Dr. Dangelo Lee MD Finishing Area Operator: [facility] Office Visit (OBGYWM ) -- HECTOR LEON ([id number]) 1975 F [place] Date Time Provider Department 09/28/24 9:50 AM [facility] O[facility] During your visit today, we recorded the following information about you: Pulse Blood pressure Weight 94/minute 118/82 91.6 kg Fallon Larson MD 09/28/2024 12:59 PM Signed Some documentation from previous visit of 06/25/2024 was copied and pasted, documentation has been reviewed and edited as necessary for today's visit. Patient Summary: Hetcor is a 49 year old Female who presents for follow-up evaluation of obesity/weight management to treat and prevent related co-morbidities. In our previous visits we have discussed lifestyle intervention including a nutrition recommendations and physical activity optimization. Her last office visit was 3 month ago. Assessment/plan from last visit: - discussed need to keep track of carbs better. Recommend tracking. Recommend adding more vegetables to lunch. Maybe spreading out carbs btwn lunch and dinner? Hard to tell if too many at dinner. Dinner seems to be large meal. -discussed stress and impact on weight and hunger hormones -discussed journaling and vision board with goals - GOAL - wants to be under 200lbs by xmas - continue vit D supplement - Continue protonix for GERD -phentermine >5% TBW loss in initial 3 months of phentermine use qualifying for long-term off label treatment of obesity- refill given - taking topiramate by PCP for migraines - discussed routine exercise and impact on weight and weight maintenance Interval History PT specifies the following items as new or significant updates since the last appointment: - had covid after xmas really bad, problems breathing- then after [place] noticed occasional increases in HR more in the morning. Had appt on 09/03 with PCP- she said something to her regarding symptoms and antidepressants, started new antidepressant - HR can go to 130-150 when walking and she feels it. Stopped taking phentermine and she is still feeling same way. - does not feel as painful with fibromyalgia - no major cravings- still on topiramate 50mg BID- for migraines - still tracking but more stress lately- family members sick so not as strict Weight loss since last vist: 25 lb Total weight lost: 47 lbs - Last Wt 09/28/24 : 91.6 kg (202 lb) 06/25/24 : 102.9 kg (227 lb) 05/28/24 : 106.6 kg (235 lb) 04/10/24 : 112.9 kg (249 lb) Date: 04/10/2024 249 lb BMI: 47.05 5% weight loss = 236 lbs, 10% weight loss = 224 lbs Anti-obesity medications: Phentermine. 37.5 mg Benefit:makes her stop thinking about food, doesn't feel hungry Adverse effects: none Anti-obesity medications: Topiramate. 50 mg bid Benefit:was started for migraines Adverse effects: none AOM Medications: Topiramate by Neurologist Weight promoting medications: Effexor 75mg changed to Desvenlafaxine Previous Diet (initial appointment): Awake - 7:30 B - coffee azerbaijani sweet cream, apple juice (8oz) [place] wrap taco velásquez, watermelon juice (8oz) , oatmeal (packet), toast, blueberries , turkey sausage , hash browns S - fruit L - chipolte bowl chicken w/ guac, apple/pecan salad w/ chicken , chicken wrap, almonds, pretzels,pizza, S - halo oranges D - tilapia, brown rice spag, carrots, ludwin, garlic bread , beats, beans, cucumbers, veggie pizza slices, cheesy bread , cream cheese ragoons S - peach cobbler blizzard sometimes , sweets Fluids: coffee juice, stopped soda, 100 oz water per day Bedtime - 11:30pm Quality of diet: 24hr recall suggests healthy diet. Characterization of diet:Unstructured, unhealthy snacking, and increased consumption of sugar sweetened beverages. Criminal Analyst of impaired eating habits:lack of satiety, emotion, and does go back for seconds- more protein- meat- loves red meat but can't eat after gallbladder Eating Disorder no Cravings: savory- karmen cheese steaks, sometimes sweets Dietary changes: B - Owyn 32g S - L - owyn protein shake, sometimes oikos yogurt, lactate cottage cheese, oikos, apple, orange, S - D - always a meat, spaghetti w/ protein, peas, carrots, broccoli, COD, celery, S - Fluids - water 101 oz per day. Eating 3 meals a day, including breakfast Increasing water intake Controlling portions Increasing protein Reducing sugar-sweetened beverages Reducing carbohydrates Eating less take out/fast food Current Barriers: reduced physical activity Exercise: not structured- but tries to walk up and down driveway stable Stress: yes- parents live with her stable Sleep: 7 hrs, no JOCELYN CrCl cannot be calculated (Unknown ideal weight.). PAST MEDICAL HISTORY Diagnosis Date Acute cholecystitis 12/12/2023 s/p lap td Crohn's disease (HCC) 2000 crohns disease, rectal bleeding resolved after hysterectomy. GI in [facility] (more content not included)... Normal [facility] Kristopher 09-26-2024 XIOMARAN Telephone (OBGYWM) -- HECTOR LEON ([id number]) 1975 F [facility] Date Time Provider Department 09/26/24 FALLON LARSON OBGY During your visit today, we recorded the following information about you: Abeba Horton RN 09/26/2024 3:30 PM Signed Patient calling regarding phentermine. Her heartrate has been elevated previously just in the mornings and now it is typically all day day. It ranges 130-150s all day and her PCP feels it could be related to her phentermine. They advised her to call DM for further instructions. She has her next weight mgmt appointment scheduled for this Thursday 09/28, but PCP told her he feels she she stop it before then. Advised if she does not hear back from us today to not take phentermine tomorrow then if she was advised that. Please advise. MELANIA Murillo Deidre, MD 09/26/2024 4:55 PM Signed She should stop the phentermine. Nadia Farrar RN 09/26/2024 4:58 PM Signed Patient notified. Nadia Farrar RN Allergies As of Date: 09/26/2024 Noted Allergy Reaction BANANA 02/21/2012 8 - GI Upset EGGS (EGG) 02/21/2012 8 - GI Upset LACTOSE 02/21/2012 5 - Intolerance PREDNISONE 06/28/2019 14 - Other: See Comments Comments: Black stools Date Reviewed: 06/25/2024 Reviewed by: Sofi Goldstein MA - Fully Assessed Reason for Visit: Medication Problem [65] Prescriptions as of 09/26/2024 - Phentermine HCl 37.5 mg tablet Take 1 tablet by mouth daily before breakfast for 90 days. Patient should start on July 17, 2024. - EFFEXOR XR 75 mg 24 hr capsule - MULTIVITAMIN ORAL Take by mouth. - loratadine (CLARITIN) 10 mg tablet - pantoprazole DR (PROTONIX) 40 mg tablet Take 1 tablet by mouth every afternoon. - INV VITAMIN D3 4000 UNIT OR [place] (IRB [id number]) CAPSULE - polyethylene glycol 3350 (MIRALAX) 17 gram/dose powder - psyllium husk (METAMUCIL) 3.4 gram/5.4 gram powd - topiramate (TOPAMAX) 25 mg tablet Take by mouth. One tablet daily for a week; then one tablet twice daily for a week; then one table three times daily for a week; then two tablets twice daily thereafter. 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 It has not been cleared or approvedby the Food and Drug Administration.Y Result Comment: The atypical pANCA pattern has been observed in a significant percentage of patients with ulcerative colitis, primary sclerosing cholangitis and autoimmune hepatitis. Performed By: #### L 800.1280, L100.0100, L3130.0010, L803.2200, L504.2610, L501.6710, L501.9985, L3890.6005, L3300.0100, L501.9520, L500.4100, L3400.0700, L3100.5450, L3300.1200, L503.6550, L300.3900, L3100.1850, L500.4050, L503.6030, L3000.0375, L3100.3425 #### [facility] [address] [place], [place], [id number] Cytoplasmic Ab <1:20 Normal Neg:<1:20 [facility] Comment on above: Order Comment: Test( s) 652668-Dwiwfx, Serum or Plasmawas developed and its performance characteristicsdetermined by [facility]. It has not been cleared or approvedby the Food and Drug Administration.Y Performed By: #### L 800.1280, L100.0100, L3130.0010, L803.2200, L504.2610, L501.6710, L501.9985, L3890.6005, L3300.0100, L501.9520, L500.4100, L3400.0700, L3100.5450, L3300.1200, L503.6550, L300.3900, L3100.1850, L500.4050, L503.6030, L3000.0375, L3100.3425 #### [facility] [address] [place], [place], [id number] Perinuclear Ab. <1:20 Normal Neg:<1:20 [facility] Comment on above: Order Comment: Test( s) 194711-Wbndzq, Serum or Plasmawas developed and its performance characteristicsdetermined by [facility]. It has not been cleared or approvedby the Food and Drug Administration.Y Result Comment: The presence of positive fluorescence exhibiting P-ANCA or C-ANCA patterns alone is not specific for the diagnosis of Bobby's Granulomatosis (WG) or microscopic polyangiitis. Decisions about treatment should not be based solely on ANCA IFA results. The International ANCA Group Consensus recommends follow up testing of positive sera with both WA- 3 and MPO-ANCA enzyme immunoassays. As many as 5% serum samples are positive only by EIA. Ref. AM J Clin Pathol 1999;111:507-513. Performed By: #### L 800.1280, L100.0100, L3130.0010, L803.2200, L504.2610, L501.6710, L501.9985, L3890.6005, L3300.0100, L501.9520, L500.4100, L3400.0700, L3100.5450, L3300.1200, L503.6550, L300.3900, L3100.1850, L500.4050, L503.6030, L3000.0375, L3100.3425 #### [facility] [address], [address] Anti-Smooth Muscle ABSon ANTISMOOTH MUSC 4 Units Normal 0-19 [facility] Comment on above: Order Comment: Test( s) 186695-Egxgvo, Serum or Plasmawas developed and its performance characteristicsdetermined by [facility]. It has not been cleared or approvedby the Food and Drug Administration.Y Result Comment: Nega tive 0 - 19 Weak positive 20 - 30 Moderate to strong positive >30 Actin Antibodies are found in 52-85% of patients with autoimmune hepatitis or chronic active hepatitis and in 22% of patients with primary biliary cirrhosis. Performed By: #### L 800.1280, L100.0100, L3130.0010, L803.2200, L504.2610, L501.6710, L501.9985, L3890.6005, L3300.0100, L501.9520, L500.4100, L3400.0700, L3100.5450, L3300.1200, L503.6550, L300.3900, L3100.1850, L500.4050, L503.6030, L3000.0375, L3100.3425 #### [facility] [address] [place], [address] Ceruloplasminon 09-05-2024 CERULOPLASMIN 29.6 mg/dL Normal 19.0-39.0 [facility] Comment on above: Order Comment: Test( s) 157581-Avkuru, Serum or Plasmawas developed and its performance characteristicsdetermined by [facility]. It has not been cleared or approvedby the Food and Drug Administration.Y Performed By: #### L 800.1280, L100.0100, L3130.0010, L803.2200, L504.2610, L501.6710, L501.9985, L3890.6005, L3300.0100, L501.9520, L500.4100, L3400.0700, L3100.5450, L3300.1200, L503.6550, L300.3900, L3100.1850, L500.4050, L503.6030, L3000.0375, L3100.3425 #### [facility] [address] [place], [place], [id number] Copper, Serum or Plasmaon COPPER, SERUM 113 ug/dL Normal 80-158 [facility] Comment on above: Order Comment: Test( s) [id number]-Ndpmaz, Serum or Plasmawas developed and its performance characteristicsdetermined by [facility]. It has not been cleared or approvedby the Food and Drug Administration.Y Result Comment: Dete ction Limit = 5 Performed By: #### L 800.1280, L100.0100, L3130.0010, L803.2200, L504.2610, L501.6710, L501.9985, L3890.6005, L3300.0100, L501.9520, L500.4100, L3400.0700, L3100.5450, L3300.1200, L503.6550, L300.3900, L3100.1850, L500.4050, L503.6030, L3000.0375, L3100.3425 #### [facility] [address] [place], [address] Haptoglobinon 09-05-2024 HAPTOGLOBIN 201 mg/dL Normal 42-296 [facility] Comment on above: Order Comment: Test( s) 542041-Nnkguz, Serum or Plasmawas developed and its performance characteristicsdetermined by [facility]. It has not been cleared or approvedby the Food and Drug Administration.Y Result Comment: Perf ormed at: [facility] [id number] Resolution Expert: Richie Camilo PhD, Phone: [phone] Performed at: [address] [id number] Resolution Expert: Mi Demarco MD, Phone: [phone] Performed By: #### L 800.1280, L100.0100, L3130.0010, L803.2200, L504.2610, L501.6710, L501.9985, L3890.6005, L3300.0100, L501.9520, L500.4100, L3400.0700, L3100.5450, L3300.1200, L503.6550, L300.3900, L3100.1850, L500.4050, L503.6030, L3000.0375, L3100.3425 #### [facility] [address] [place], [address] Hepatitis Panel Acuteon -0 COMMENT Comment Normal . [facility] Comment on above: Order Comment: Test( s) 543708-Tcfwoz, Serum or Plasmawas developed and its performance characteristicsdetermined by [facility]. It has not been cleared or approvedby the Food and Drug Administration.Y Result Comment: Not infected with HCV unless early or acute infection is suspected (which may be delayed in an immunocompromised individual), or other evidence exists to indicate HCV infection. Performed By: #### L 800.1280, L100.0100, L3130.0010, L803.2200, L504.2610, L501.6710, L501.9985, L3890.6005, L3300.0100, L501.9520, L500.4100, L3400.0700, L3100.5450, L3300.1200, L503.6550, L300.3900, L3100.1850, L500.4050, L503.6030, L3000.0375, L3100.3425 #### [facility] [address] [place], [address] HEP B CORE,IgM Negative Normal Negative [facility] Comment on above: Order Comment: Test( s) 571967-Utdpwf, Serum or Plasmawas developed and its performance characteristicsdetermined by [facility]. It has not been cleared or approvedby the Food and Drug Administration.Y Performed By: #### L 800.1280, L100.0100, L3130.0010, L803.2200, L504.2610, L501.6710, L501.9985, L3890.6005, L3300.0100, L501.9520, L500.4100, L3400.0700, L3100.5450, L3300.1200, L503.6550, L300.3900, L3100.1850, L500.4050, L503.6030, L3000.0375, L3100.3425 #### [facility] [address] [place], [address] HEP B SURF AG Negative Normal Negative [facility] Comment on above: Order Comment: Test( s) [id number]-Ppyjue, Serum or Plasmawas developed and its performance characteristicsdetermined by [facility]. It has not been cleared or approvedby the Food and Drug Administration.Y Performed By: #### L 800.1280, L100.0100, L3130.0010, L803.2200, L504.2610, L501.6710, L501.9985, L3890.6005, L3300.0100, L501.9520, L500.4100, L3400.0700, L3100.5450, L3300.1200, L503.6550, L300.3900, L3100.1850, L500.4050, L503.6030, L3000.0375, L3100.3425 #### [facility] [address] [place], [address] HEP C VIRUS AB Non-Reactive Normal Non Reactive [facility] Comment on above: Order Comment: Test( s) 866846-Vtdmvq, Serum or Plasmawas developed and its performance characteristicsdetermined by [facility]. It has not been cleared or approvedby the Food and Drug Administration.Y Performed By: #### L 800.1280, L100.0100, L3130.0010, L803.2200, L504.2610, L501.6710, L501.9985, L3890.6005, L3300.0100, L501.9520, L500.4100, L3400.0700, L3100.5450, L3300.1200, L503.6550, L300.3900, L3100.1850, L500.4050, L503.6030, L3000.0375, L3100.3425 #### [facility] [address] [place], [address] HEPATITIS A-IgM Negative Normal Negative [facility] Comment on above: Order Comment: Test( s) 609804-Mmgkfx, Serum or Plasmawas developed and its performance characteristicsdetermined by [facility]. It has not been cleared or approvedby the Food and Drug Administration.Y Result Comment: A ne gative anti-HAV IgM result suggests no recent or current HAV infection. Performed By: #### L 800.1280, L100.0100, L3130.0010, L803.2200, L504.2610, L501.6710, L501.9985, L3890.6005, L3300.0100, L501.9520, L500.4100, L3400.0700, L3100.5450, L3300.1200, L503.6550, L300.3900, L3100.1850, L500.4050, L503.6030, L3000.0375, L3100.3425 #### [facility] [address] [place], [address] BERTHA + Protein Elect, Serumon 09-05-2024 Albumin [Mass/Vol] 3.5 g/dL Normal 2.9-4.4 [facility] Comment on above: Order Comment: Test( s) 508417-Lujfty, Serum or Plasmawas developed and its performance characteristicsdetermined by [facility]. It has not been cleared or approvedby the Food and Drug Administration.Y Performed By: #### L 800.1280, L100.0100, L3130.0010, L803.2200, L504.2610, L501.6710, L501.9985, L3890.6005, L3300.0100, L501.9520, L500.4100, L3400.0700, L3100.5450, L3300.1200, L503.6550, L300.3900, L3100.1850, L500.4050, L503.6030, L3000.0375, L3100.3425 #### [facility] [address] [place], [address] Albumin/Globulin [Mass ratio] 1.1 {ratio} Normal 0.7-1.7 [facility] Comment on above: Order Comment: Test( s) 996573-Kdecmy, Serum or Plasmawas developed and its performance characteristicsdetermined by [facility]. It has not been cleared or approvedby the Food and Drug Administration.Y Performed By: #### L 800.1280, L100.0100, L3130.0010, L803.2200, L504.2610, L501.6710, L501.9985, L3890.6005, L3300.0100, L501.9520, L500.4100, L3400.0700, L3100.5450, L3300.1200, L503.6550, L300.3900, L3100.1850, L500.4050, L503.6030, L3000.0375, L3100.3425 #### [facility] [address] [place], [address] BANBL-1-QAHV 0.2 g/dL Normal 0.0-0.4 [facility] Comment on above: Order Comment: Test( s) 763868-Ogexyn, Serum or Plasmawas developed and its performance characteristicsdetermined by [facility]. It has not been cleared or approvedby the Food and Drug Administration.Y Performed By: #### L 800.1280, L100.0100, L3130.0010, L803.2200, L504.2610, L501.6710, L501.9985, L3890.6005, L3300.0100, L501.9520, L500.4100, L3400.0700, L3100.5450, L3300.1200, L503.6550, L300.3900, L3100.1850, L500.4050, L503.6030, L3000.0375, L3100.3425 #### [facility] [address] [place], [address] DWLGH-2-DHWQ 0.7 g/dL Normal 0.4-1.0 [facility] Comment on above: Order Comment: Test( s) 584056-Jjmnjj, Serum or Plasmawas developed and its performance characteristicsdetermined by [facility]. It has not been cleared or approvedby the Food and Drug Administration.Y Performed By: #### L 800.1280, L100.0100, L3130.0010, L803.2200, L504.2610, L501.6710, L501.9985, L3890.6005, L3300.0100, L501.9520, L500.4100, L3400.0700, L3100.5450, L3300.1200, L503.6550, L300.3900, L3100.1850, L500.4050, L503.6030, L3000.0375, L3100.3425 #### [facility] [address] [place], [address] BETA GLOBULIN 1.1 g/dL Normal 0.7-1.3 [facility] Comment on above: Order Comment: Test( s) 937755-Mupqhr, Serum or Plasmawas developed and its performance characteristicsdetermined by [facility]. It has not been cleared or approvedby the Food and Drug Administration.Y Performed By: #### L 800.1280, L100.0100, L3130.0010, L803.2200, L504.2610, L501.6710, L501.9985, L3890.6005, L3300.0100, L501.9520, L500.4100, L3400.0700, L3100.5450, L3300.1200, L503.6550, L300.3900, L3100.1850, L500.4050, L503.6030, L3000.0375, L3100.3425 #### [facility] [address] [place], [address] GAMMA GLOBULIN 1.3 g/dL Normal 0.4-1.8 [facility] Comment on above: Order Comment: Test( s) 280445-Xnfage, Serum or Plasmawas developed and its performance characteristicsdetermined by [facility]. It has not been cleared or approvedby the Food and Drug Administration.Y Performed By: #### L 800.1280, L100.0100, L3130.0010, L803.2200, L504.2610, L501.6710, L501.9985, L3890.6005, L3300.0100, L501.9520, L500.4100, L3400.0700, L3100.5450, L3300.1200, L503.6550, L300.3900, L3100.1850, L500.4050, L503.6030, L3000.0375, L3100.3425 #### [facility] [address] [place], [address] Globulin (S) [Mass/Vol] 3.3 g/dL Normal 2.2-3.9 [facility] Comment on above: Order Comment: Test( s) [id number]-Cxqjsp, Serum or Plasmawas developed and its performance characteristicsdetermined by [facility]. It has not been cleared or approvedby the Food and Drug Administration.Y Performed By: #### L 800.1280, L100.0100, L3130.0010, L803.2200, L504.2610, L501.6710, L501.9985, L3890.6005, L3300.0100, L501.9520, L500.4100, L3400.0700, L3100.5450, L3300.1200, L503.6550, L300.3900, L3100.1850, L500.4050, L503.6030, L3000.0375, L3100.3425 #### [facility] [address] [place], [address] BERTHA RESULT,S Comment Normal . [facility] Comment on above: Order Comment: Test( s) 955024-Pfyeyq, Serum or Plasmawas developed and its performance characteristicsdetermined by [facility]. It has not been cleared or approvedby the Food and Drug Administration.Y Result Comment: No m onoclonality detected. Performed By: #### L 800.1280, L100.0100, L3130.0010, L803.2200, L504.2610, L501.6710, L501.9985, L3890.6005, L3300.0100, L501.9520, L500.4100, L3400.0700, L3100.5450, L3300.1200, L503.6550, L300.3900, L3100.1850, L500.4050, L503.6030, L3000.0375, L3100.3425 #### [facility] [address] [place], [place], [id number] IMMUNOGLOB A QN 241 mg/dL Normal 87-352 [facility] Comment on above: Order Comment: Test( s) 241553-Skvdkc, Serum or Plasmawas developed and its performance characteristicsdetermined by [facility]. It has not been cleared or approvedby the Food and Drug Administration.Y Performed By: #### L 800.1280, L100.0100, L3130.0010, L803.2200, L504.2610, L501.6710, L501.9985, L3890.6005, L3300.0100, L501.9520, L500.4100, L3400.0700, L3100.5450, L3300.1200, L503.6550, L300.3900, L3100.1850, L500.4050, L503.6030, L3000.0375, L3100.3425 #### [facility] [address], [address] IMMUNOGLOB G QN 1182 mg/dL Normal 586-1602 [facility] Comment on above: Order Comment: Test( s) 655716-Yokpwb, Serum or Plasmawas developed and its performance characteristicsdetermined by [facility]. It has not been cleared or approvedby the Food and Drug Administration.Y Performed By: #### L 800.1280, L100.0100, L3130.0010, L803.2200, L504.2610, L501.6710, L501.9985, L3890.6005, L3300.0100, L501.9520, L500.4100, L3400.0700, L3100.5450, L3300.1200, L503.6550, L300.3900, L3100.1850, L500.4050, L503.6030, L3000.0375, L3100.3425 #### [facility] [address] [place], [place], [id number] IMMUNOGLOB M QN 137 mg/dL Normal 26-217 [facility] Comment on above: Order Comment: Test( s) 637700-Wdgfpw, Serum or Plasmawas developed and its performance characteristicsdetermined by [facility]. It has not been cleared or approvedby the Food and Drug Administration.Y Performed By: #### L 800.1280, L100.0100, L3130.0010, L803.2200, L504.2610, L501.6710, L501.9985, L3890.6005, L3300.0100, L501.9520, L500.4100, L3400.0700, L3100.5450, L3300.1200, L503.6550, L300.3900, L3100.1850, L500.4050, L503.6030, L3000.0375, L3100.3425 #### [facility] [address] [place], [address] M-Jacinto Not Observed Normal Not Observed [facility] Comment on above: Order Comment: Test( s) [id number]-Husxsl, Serum or Plasmawas developed and its performance characteristicsdetermined by [facility]. It has not been cleared or approvedby the Food and Drug Administration.Y Performed By: #### L 800.1280, L100.0100, L3130.0010, L803.2200, L504.2610, L501.6710, L501.9985, L3890.6005, L3300.0100, L501.9520, L500.4100, L3400.0700, L3100.5450, L3300.1200, L503.6550, L300.3900, L3100.1850, L500.4050, L503.6030, L3000.0375, L3100.3425 #### [facility] [address] [place], [address] NOTE: Comment Normal . [facility] Comment on above: Order Comment: Test( s) 964090-Aqbytt, Serum or Plasmawas developed and its performance characteristicsdetermined by [facility]. It has not been cleared or approvedby the Food and Drug Administration.Y Result Comment: Prot ein electrophoresis scan will follow via computer, mail, or bench manager delivery. Performed By: #### L 800.1280, L100.0100, L3130.0010, L803.2200, L504.2610, L501.6710, L501.9985, L3890.6005, L3300.0100, L501.9520, L500.4100, L3400.0700, L3100.5450, L3300.1200, L503.6550, L300.3900, L3100.1850, L500.4050, L503.6030, L3000.0375, L3100.3425 #### [facility] [address] [place], [address] Protein [Mass/Vol] 6.8 g/dL Normal 6.0-8.5 [facility] Comment on above: Order Comment: Test( s) 099435-Rdaquq, Serum or Plasmawas developed and its performance characteristicsdetermined by [employer]. It has not been cleared or approvedby the Food and Drug Administration.Y Performed By: #### L 800.1280, L100.0100, L3130.0010, L803.2200, L504.2610, L501.6710, L501.9985, L3890.6005, L3300.0100, L501.9520, L500.4100, L3400.0700, L3100.5450, L3300.1200, L503.6550, L300.3900, L3100.1850, L500.4050, L503.6030, L3000.0375, L3100.3425 #### [facility] [address] [facility] [place], [address] Creston Lambda Light Chainson 09-05-2024 FR KAPPA LT CHN 25.2 mg/L Abnormal 3.3-19.4 [facility] Comment on above: Order Comment: Test( s) 267632-Uhqndr, Serum or Plasmawas developed and its performance characteristicsdetermined by [employer]. It has not been cleared or approvedby the Food and Drug Administration.Y Performed By: #### L 800.1280, L100.0100, L3130.0010, L803.2200, L504.2610, L501.6710, L501.9985, L3890.6005, L3300.0100, L501.9520, L500.4100, L3400.0700, L3100.5450, L3300.1200, L503.6550, L300.3900, L3100.1850, L500.4050, L503.6030, L3000.0375, L3100.3425 #### [facility] [address] [facility] [address] [place], [place], [id number] FR LAMBDA LT CH 15.4 mg/L Normal 5.7-26.3 [facility] Comment on above: Order Comment: Test( s) [id number]-Hxcjmw, Serum or Plasmawas developed and its performance characteristicsdetermined by [facility]. It has not been cleared or approvedby the Food and Drug Administration.Y Performed By: #### L 800.1280, L100.0100, L3130.0010, L803.2200, L504.2610, L501.6710, L501.9985, L3890.6005, L3300.0100, L501.9520, L500.4100, L3400.0700, L3100.5450, L3300.1200, L503.6550, L300.3900, L3100.1850, L500.4050, L503.6030, L3000.0375, L3100.3425 #### [facility] [address] [facility] [place], [address] KAPPA/LAMBDA % 1.64 Normal 0.26-1.65 [facility] Comment on above: Order Comment: Test( s) 502757-Qpmesz, Serum or Plasmawas developed and its performance characteristicsdetermined by [facility]. It has not been cleared or approvedby the Food and Drug Administration.Y Performed By: #### L 800.1280, L100.0100, L3130.0010, L803.2200, L504.2610, L501.6710, L501.9985, L3890.6005, L3300.0100, L501.9520, L500.4100, L3400.0700, L3100.5450, L3300.1200, L503.6550, L300.3900, L3100.1850, L500.4050, L503.6030, L3000.0375, L3100.3425 #### [facility] [address] [facility] [place], [address] LUIS MIGUEL w/ Reflex Mult Confirmon 09-04-2024 LUIS MIGUEL,DIRECT Negative Normal Negative [facility] Comment on above: Result Comment: Perf ormed at: - [facility], [place], [place] [id number] Resolution Expert: Richie Camilo PhD, Phone: [phone] Performed By: #### L 800.1280, L100.0100, L3130.0010, L803.2200, L504.2610, L501.6710, L501.9985, L3890.6005, L3300.0100, L501.9520, L500.4100, L3400.0700, L3100.5450, L3300.1200, L503.6550, L300.3900, L3100.1850, L500.4050, L503.6030, L3000.0375, L3100.3425 #### [facility] [address] [place], [address] Anti-Mitochondrial ABon ANTIMITOCHON AB <20.0 Normal 0.0-20.0 [facility] Comment on above: Result Comment: Nega tive 0.0 - 20.0 Equivocal 20.1 - 24.9 Positive >24.9 Mitochondrial (M2) Antibodies are found in 90-96% of patients with primary biliary cirrhosis. Performed By: #### L 800.1280, L100.0100, L3130.0010, L803.2200, L504.2610, L501.6710, L501.9985, L3890.6005, L3300.0100, L501.9520, L500.4100, L3400.0700, L3100.5450, L3300.1200, L503.6550, L300.3900, L3100.1850, L500.4050, L503.6030, L3000.0375, L3100.3425 #### [facility] [address] [facility] [place], [address] CBC W/Diff, Automatedon Absolute Lymph 1.92 X10 3/uL Normal 0.83-4.51 [facility] Comment on above: Performed By: #### L 800.1280, L100.0100, L3130.0010, L803.2200, L504.2610, L501.6710, L501.9985, L3890.6005, L3300.0100, L501.9520, L500.4100, L3400.0700, L3100.5450, L3300.1200, L503.6550, L300.3900, L3100.1850, L500.4050, L503.6030, L3000.0375, L3100.3425 #### [facility] [address] [place], [address] (260) Absolute Neut 3.2 X10 3/uL Normal 2.0-7.7 [facility] Comment on above: Performed By: #### L 800.1280, L100.0100, L3130.0010, L803.2200, L504.2610, L501.6710, L501.9985, L3890.6005, L3300.0100, L501.9520, L500.4100, L3400.0700, L3100.5450, L3300.1200, L503.6550, L300.3900, L3100.1850, L500.4050, L503.6030, L3000.0375, L3100.3425 #### [facility] [address] [facility] [place], [address] (453 Basophils/100 WBC (Bld) 0.5 % Normal 0-1 [facility] Comment on above: Performed By: #### L 800.1280, L100.0100, L3130.0010, L803.2200, L504.2610, L501.6710, L501.9985, L3890.6005, L3300.0100, L501.9520, L500.4100, L3400.0700, L3100.5450, L3300.1200, L503.6550, L300.3900, L3100.1850, L500.4050, L503.6030, L3000.0375, L3100.3425 #### [facility] [address] [facility] [place], [address] Eosinophils/100 WBC (Bld) 0.5 % Normal 0-5 [facility] Comment on above: Performed By: #### L 800.1280, L100.0100, L3130.0010, L803.2200, L504.2610, L501.6710, L501.9985, L3890.6005, L3300.0100, L501.9520, L500.4100, L3400.0700, L3100.5450, L3300.1200, L503.6550, L300.3900, L3100.1850, L500.4050, L503.6030, L3000.0375, L3100.3425 #### [facility] [address] [facility] [place], [address] Erythrocyte distribution width (RBC) [Ratio] 12.5 % Normal 11.6-14.6 [facility] Comment on above: Performed By: #### L 800.1280, L100.0100, L3130.0010, L803.2200, L504.2610, L501.6710, L501.9985, L3890.6005, L3300.0100, L501.9520, L500.4100, L3400.0700, L3100.5450, L3300.1200, L503.6550, L300.3900, L3100.1850, L500.4050, L503.6030, L3000.0375, L3100.3425 #### [facility] [address] [facility] [place], [address] Hematocrit (Bld) [Volume fraction] 44.7 % Normal 37-47 [facility] Comment on above: Performed By: #### L 800.1280, L100.0100, L3130.0010, L803.2200, L504.2610, L501.6710, L501.9985, L3890.6005, L3300.0100, L501.9520, L500.4100, L3400.0700, L3100.5450, L3300.1200, L503.6550, L300.3900, L3100.1850, L500.4050, L503.6030, L3000.0375, L3100.3425 #### [facility] [address] [place], [address] Hemoglobin (Bld) [Mass/Vol] 15.0 g/dL Normal 12.0-15.0 [facility] Comment on above: Performed By: #### L 800.1280, L100.0100, L3130.0010, L803.2200, L504.2610, L501.6710, L501.9985, L3890.6005, L3300.0100, L501.9520, L500.4100, L3400.0700, L3100.5450, L3300.1200, L503.6550, L300.3900, L3100.1850, L500.4050, L503.6030, L3000.0375, L3100.3425 #### [facility] [address] [place], [address] IG% 0.200 Normal 0.0-0.9 [facility] Comment on above: Result Comment: IG% - Immature Granulocytes (promyelocytes, myelocytes and metamyelocytes) > 1% indicates that a LEFT SHIFT is Present. Performed By: #### L 800.1280, L100.0100, L3130.0010, L803.2200, L504.2610, L501.6710, L501.9985, L3890.6005, L3300.0100, L501.9520, L500.4100, L3400.0700, L3100.5450, L3300.1200, L503.6550, L300.3900, L3100.1850, L500.4050, L503.6030, L3000.0375, L3100.3425 #### [facility] [address] [facility] [place], [address] Lymphocytes/100 WBC (Bld) 33.9 % Normal 19-41 [facility] Comment on above: Performed By: #### L 800.1280, L100.0100, L3130.0010, L803.2200, L504.2610, L501.6710, L501.9985, L3890.6005, L3300.0100, L501.9520, L500.4100, L3400.0700, L3100.5450, L3300.1200, L503.6550, L300.3900, L3100.1850, L500.4050, L503.6030, L3000.0375, L3100.3425 #### [facility] [address] [place], [place], [id number] MCH (RBC) [Entitic mass] 29.9 pg Normal 27.0-32.0 [facility] Comment on above: Performed By: #### L 800.1280, L100.0100, L3130.0010, L803.2200, L504.2610, L501.6710, L501.9985, L3890.6005, L3300.0100, L501.9520, L500.4100, L3400.0700, L3100.5450, L3300.1200, L503.6550, L300.3900, L3100.1850, L500.4050, L503.6030, L3000.0375, L3100.3425 #### [facility] [address] [place], [place], [id number] MCHC (RBC) [Mass/Vol] 33.6 g/dL Normal 32-36 [facility] Comment on above: Performed By: #### L 800.1280, L100.0100, L3130.0010, L803.2200, L504.2610, L501.6710, L501.9985, L3890.6005, L3300.0100, L501.9520, L500.4100, L3400.0700, L3100.5450, L3300.1200, L503.6550, L300.3900, L3100.1850, L500.4050, L503.6030, L3000.0375, L3100.3425 #### [facility] [address] [place], [address] ( MCV (RBC) [Entitic vol] 89.0 fL Normal 81-99 [facility] Comment on above: Performed By: #### L 800.1280, L100.0100, L3130.0010, L803.2200, L504.2610, L501.6710, L501.9985, L3890.6005, L3300.0100, L501.9520, L500.4100, L3400.0700, L3100.5450, L3300.1200, L503.6550, L300.3900, L3100.1850, L500.4050, L503.6030, L3000.0375, L3100.3425 #### [facility] [address] [place], [address] Monocytes/100 WBC (Bld) 9.2 % Normal 0-10 [facility] Comment on above: Performed By: #### L 800.1280, L100.0100, L3130.0010, L803.2200, L504.2610, L501.6710, L501.9985, L3890.6005, L3300.0100, L501.9520, L500.4100, L3400.0700, L3100.5450, L3300.1200, L503.6550, L300.3900, L3100.1850, L500.4050, L503.6030, L3000.0375, L3100.3425 #### [facility] [address] [place], [address] Neutrophils/100 WBC (Bld) 55.7 % Normal 47-70 [facility] Comment on above: Performed By: #### L 800.1280, L100.0100, L3130.0010, L803.2200, L504.2610, L501.6710, L501.9985, L3890.6005, L3300.0100, L501.9520, L500.4100, L3400.0700, L3100.5450, L3300.1200, L503.6550, L300.3900, L3100.1850, L500.4050, L503.6030, L3000.0375, L3100.3425 #### [facility] [address] [facility] [place], [address] Nucleated RBC (Bld) [#/Vol] 0 10*3/uL Normal 0-5 [facility] Comment on above: Performed By: #### L 800.1280, L100.0100, L3130.0010, L803.2200, L504.2610, L501.6710, L501.9985, L3890.6005, L3300.0100, L501.9520, L500.4100, L3400.0700, L3100.5450, L3300.1200, L503.6550, L300.3900, L3100.1850, L500.4050, L503.6030, L3000.0375, L3100.3425 #### [facility] [address] [facility] [place], [address] Platelet mean volume (Bld) [Entitic vol] 10.9 fL Normal 6.2-12.0 [facility] Comment on above: Performed By: #### L 800.1280, L100.0100, L3130.0010, L803.2200, L504.2610, L501.6710, L501.9985, L3890.6005, L3300.0100, L501.9520, L500.4100, L3400.0700, L3100.5450, L3300.1200, L503.6550, L300.3900, L3100.1850, L500.4050, L503.6030, L3000.0375, L3100.3425 #### [facility] [address] [facility] [place], [address] (715 Platelets (Bld) [#/Vol] 239 10*3/uL Normal 150-450 [facility] Comment on above: Performed By: #### L 800.1280, L100.0100, L3130.0010, L803.2200, L504.2610, L501.6710, L501.9985, L3890.6005, L3300.0100, L501.9520, L500.4100, L3400.0700, L3100.5450, L3300.1200, L503.6550, L300.3900, L3100.1850, L500.4050, L503.6030, L3000.0375, L3100.3425 #### [facility] [address] [place], [place], [id number] (229) RBC (Bld) [#/Vol] 5.02 10*6/uL Normal 4.2-5.4 [facility] Comment on above: Performed By: #### L 800.1280, L100.0100, L3130.0010, L803.2200, L504.2610, L501.6710, L501.9985, L3890.6005, L3300.0100, L501.9520, L500.4100, L3400.0700, L3100.5450, L3300.1200, L503.6550, L300.3900, L3100.1850, L500.4050, L503.6030, L3000.0375, L3100.3425 #### [facility] [address] [place], [place], [id number] (208) RDW SD 40.6 fl Normal 35.1-43.9 [facility] Comment on above: Performed By: #### L 800.1280, L100.0100, L3130.0010, L803.2200, L504.2610, L501.6710, L501.9985, L3890.6005, L3300.0100, L501.9520, L500.4100, L3400.0700, L3100.5450, L3300.1200, L503.6550, L300.3900, L3100.1850, L500.4050, L503.6030, L3000.0375, L3100.3425 #### [facility] [address] [facility] [address] [place], [place], [id number] WBC (Bld) [#/Vol] 5.7 10*3/uL Normal 4.4-11.0 [facility] Comment on above: Performed By: #### L 800.1280, L100.0100, L3130.0010, L803.2200, L504.2610, L501.6710, L501.9985, L3890.6005, L3300.0100, L501.9520, L500.4100, L3400.0700, L3100.5450, L3300.1200, L503.6550, L300.3900, L3100.1850, L500.4050, L503.6030, L3000.0375, L3100.3425 #### [facility] [address] [facility] [address] [place], [place], [id number] CRPon 09-03-2024 C-REACTIVE PROT 3.21 mg/L High 0.0-3.0 [facility] Comment on above: Order Comment: 1 Result Comment: C-Re active Protein (CRP) provides useful information for the diagnosis, therapy and monitoring of inflammatory processes and associated diseases. For the evaluation of Relative Risk for Cardiovascular Disease, a High Sensitivity CRP (HSCRP) should be ordered. Performed By: #### L 800.1280, L100.0100, L3130.0010, L803.2200, L504.2610, L501.6710, L501.9985, L3890.6005, L3300.0100, L501.9520, L500.4100, L3400.0700, L3100.5450, L3300.1200, L503.6550, L300.3900, L3100.1850, L500.4050, L503.6030, L3000.0375, L3100.3425 #### [facility] [address] [place], [address] Comprehensive Metabolic Prof ilon 09-03-2024 Albumin [Mass/Vol] 3.5 g/dL Normal 3.2-5.0 [facility] Comment on above: Order Comment: 1 Performed By: #### L 800.1280, L100.0100, L3130.0010, L803.2200, L504.2610, L501.6710, L501.9985, L3890.6005, L3300.0100, L501.9520, L500.4100, L3400.0700, L3100.5450, L3300.1200, L503.6550, L300.3900, L3100.1850, L500.4050, L503.6030, L3000.0375, L3100.3425 #### [facility] [address] [place], [address] Albumin/Globulin [Mass ratio] 0.9 {ratio} Normal 0.9-2.4 [facility] Comment on above: Order Comment: 1 Performed By: #### L 800.1280, L100.0100, L3130.0010, L803.2200, L504.2610, L501.6710, L501.9985, L3890.6005, L3300.0100, L501.9520, L500.4100, L3400.0700, L3100.5450, L3300.1200, L503.6550, L300.3900, L3100.1850, L500.4050, L503.6030, L3000.0375, L3100.3425 #### [facility] [address] [place], [address] ALK P 108 U/L Normal 45-117 [facility] Comment on above: Order Comment: 1 Performed By: #### L 800.1280, L100.0100, L3130.0010, L803.2200, L504.2610, L501.6710, L501.9985, L3890.6005, L3300.0100, L501.9520, L500.4100, L3400.0700, L3100.5450, L3300.1200, L503.6550, L300.3900, L3100.1850, L500.4050, L503.6030, L3000.0375, L3100.3425 #### [facility] [address] [facility] [address] [place], [place], [id number] ALT [Catalytic activity/Vol] 128 U/L High 13-56 [facility] Comment on above: Order Comment: 1 Performed By: #### L 800.1280, L100.0100, L3130.0010, L803.2200, L504.2610, L501.6710, L501.9985, L3890.6005, L3300.0100, L501.9520, L500.4100, L3400.0700, L3100.5450, L3300.1200, L503.6550, L300.3900, L3100.1850, L500.4050, L503.6030, L3000.0375, L3100.3425 #### [facility] [address] [facility] [address] [place], [place], [id number] AST [Catalytic activity/Vol] 53 U/L [facility] 15-37 [facility] Comment on above: Order Comment: 1 Performed By: #### L 800.1280, L100.0100, L3130.0010, L803.2200, L504.2610, L501.6710, L501.9985, L3890.6005, L3300.0100, L501.9520, L500.4100, L3400.0700, L3100.5450, L3300.1200, L503.6550, L300.3900, L3100.1850, L500.4050, L503.6030, L3000.0375, L3100.3425 #### [facility] [address] [place], [address] Bilirubin [Mass/Vol] 0.40 mg/dL Normal 0.20-1.00 [facility] Comment on above: Order Comment: 1 Result Comment: For patients on eltrombopag therapy, use of Dimension [place] TBIL is not recommended. Performed By: #### L 800.1280, L100.0100, L3130.0010, L803.2200, L504.2610, L501.6710, L501.9985, L3890.6005, L3300.0100, L501.9520, L500.4100, L3400.0700, L3100.5450, L3300.1200, L503.6550, L300.3900, L3100.1850, L500.4050, L503.6030, L3000.0375, L3100.3425 #### [facility] [address] [place], [address] BUN/CRE 28.3 RATIO High 10-20 [facility] Comment on above: Order Comment: 1 Performed By: #### L 800.1280, L100.0100, L3130.0010, L803.2200, L504.2610, L501.6710, L501.9985, L3890.6005, L3300.0100, L501.9520, L500.4100, L3400.0700, L3100.5450, L3300.1200, L503.6550, L300.3900, L3100.1850, L500.4050, L503.6030, L3000.0375, L3100.3425 #### [facility] [address] [place], [address] CA,Total 9.1 mg/dL Normal 8.5-10.1 [facility] Comment on above: Order Comment: 1 Performed By: #### L 800.1280, L100.0100, L3130.0010, L803.2200, L504.2610, L501.6710, L501.9985, L3890.6005, L3300.0100, L501.9520, L500.4100, L3400.0700, L3100.5450, L3300.1200, L503.6550, L300.3900, L3100.1850, L500.4050, L503.6030, L3000.0375, L3100.3425 #### [facility] [address] [place], [address] (784) Chloride [Moles/Vol] 106 mmol/L Normal 98-107 [facility] Comment on above: Order Comment: 1 Performed By: #### L 800.1280, L100.0100, L3130.0010, L803.2200, L504.2610, L501.6710, L501.9985, L3890.6005, L3300.0100, L501.9520, L500.4100, L3400.0700, L3100.5450, L3300.1200, L503.6550, L300.3900, L3100.1850, L500.4050, L503.6030, L3000.0375, L3100.3425 #### [facility] [address] [place], [address] CO2 [Moles/Vol] 27.0 mmol/L Normal 21.0-32.0 [facility] Comment on above: Order Comment: 1 Performed By: #### L 800.1280, L100.0100, L3130.0010, L803.2200, L504.2610, L501.6710, L501.9985, L3890.6005, L3300.0100, L501.9520, L500.4100, L3400.0700, L3100.5450, L3300.1200, L503.6550, L300.3900, L3100.1850, L500.4050, L503.6030, L3000.0375, L3100.3425 #### [facility] [address] [facility] [place], [address] Creatinine [Mass/Vol] 0.71 mg/dL Normal 0.55-1.02 [facility] Comment on above: Order Comment: 1 Result Comment: The validity of the calculated GFR GFRAA in patients over 70 years has not been determined. Clinical correlation is essential. Performed By: #### L 800.1280, L100.0100, L3130.0010, L803.2200, L504.2610, L501.6710, L501.9985, L3890.6005, L3300.0100, L501.9520, L500.4100, L3400.0700, L3100.5450, L3300.1200, L503.6550, L300.3900, L3100.1850, L500.4050, L503.6030, L3000.0375, L3100.3425 #### [facility] [address] [place], [address] EST GFR - AA 114 mL/min Normal >60 [facility] Comment on above: Order Comment: 1 Result Comment: Afri can Sudanese GFR Calc Performed By: #### L 800.1280, L100.0100, L3130.0010, L803.2200, L504.2610, L501.6710, L501.9985, L3890.6005, L3300.0100, L501.9520, L500.4100, L3400.0700, L3100.5450, L3300.1200, L503.6550, L300.3900, L3100.1850, L500.4050, L503.6030, L3000.0375, L3100.3425 #### [facility] [address] [place], [address] GAP 4 Low 5-15 [facility] Comment on above: Order Comment: 1 Performed By: #### L 800.1280, L100.0100, L3130.0010, L803.2200, L504.2610, L501.6710, L501.9985, L3890.6005, L3300.0100, L501.9520, L500.4100, L3400.0700, L3100.5450, L3300.1200, L503.6550, L300.3900, L3100.1850, L500.4050, L503.6030, L3000.0375, L3100.3425 #### [facility] [address] [place], [address] (906) GFR/1.73 sq M.predicted among non-blacks MDRD (S/P/Bld) [Vol rate/Area] 94 mL/min/{1.73_m2} Normal >60 [facility] Comment on above: Order Comment: 1 Result Comment: Non- GFR Calc Performed By: #### L 800.1280, L100.0100, L3130.0010, L803.2200, L504.2610, L501.6710, L501.9985, L3890.6005, L3300.0100, L501.9520, L500.4100, L3400.0700, L3100.5450, L3300.1200, L503.6550, L300.3900, L3100.1850, L500.4050, L503.6030, L3000.0375, L3100.3425 #### [facility] [address] [facility]. [place], [place], [id number] [phone] Globulin (S) [Mass/Vol] 4.0 g/dL Normal 2.2-4.2 [facility] Comment on above: Order Comment: 1 Performed By: #### L 800.1280, L100.0100, L3130.0010, L803.2200, L504.2610, L501.6710, L501.9985, L3890.6005, L3300.0100, L501.9520, L500.4100, L3400.0700, L3100.5450, L3300.1200, L503.6550, L300.3900, L3100.1850, L500.4050, L503.6030, L3000.0375, L3100.3425 #### [facility] [address] [place], [address] Glucose [Mass/Vol] 91 mg/dL Normal 74-106 [facility] Comment on above: Order Comment: 1 Performed By: #### L 800.1280, L100.0100, L3130.0010, L803.2200, L504.2610, L501.6710, L501.9985, L3890.6005, L3300.0100, L501.9520, L500.4100, L3400.0700, L3100.5450, L3300.1200, L503.6550, L300.3900, L3100.1850, L500.4050, L503.6030, L3000.0375, L3100.3425 #### [facility] [address] [place], [address] Potassium [Moles/Vol] 3.6 mmol/L Normal 3.5-5.1 [facility] Comment on above: Order Comment: 1 Performed By: #### L 800.1280, L100.0100, L3130.0010, L803.2200, L504.2610, L501.6710, L501.9985, L3890.6005, L3300.0100, L501.9520, L500.4100, L3400.0700, L3100.5450, L3300.1200, L503.6550, L300.3900, L3100.1850, L500.4050, L503.6030, L3000.0375, L3100.3425 #### [facility] [address] [place], [address] Sodium [Moles/Vol] 137 mmol/L Normal 136-145 [facility] Comment on above: Order Comment: 1 Performed By: #### L 800.1280, L100.0100, L3130.0010, L803.2200, L504.2610, L501.6710, L501.9985, L3890.6005, L3300.0100, L501.9520, L500.4100, L3400.0700, L3100.5450, L3300.1200, L503.6550, L300.3900, L3100.1850, L500.4050, L503.6030, L3000.0375, L3100.3425 #### [facility] [address] [place], [address] T PROT 7.5 g/dL Normal 6.4-8.2 [facility] Comment on above: Order Comment: 1 Performed By: #### L 800.1280, L100.0100, L3130.0010, L803.2200, L504.2610, L501.6710, L501.9985, L3890.6005, L3300.0100, L501.9520, L500.4100, L3400.0700, L3100.5450, L3300.1200, L503.6550, L300.3900, L3100.1850, L500.4050, L503.6030, L3000.0375, L3100.3425 #### [facility] [address] [place], [address] Urea nitrogen [Mass/Vol] 20 mg/dL High 7-18 [facility] Comment on above: Order Comment: 1 Performed By: #### L 800.1280, L100.0100, L3130.0010, L803.2200, L504.2610, L501.6710, L501.9985, L3890.6005, L3300.0100, L501.9520, L500.4100, L3400.0700, L3100.5450, L3300.1200, L503.6550, L300.3900, L3100.1850, L500.4050, L503.6030, L3000.0375, L3100.3425 #### [facility] [address] [place], [address] Ferritinon 09-03-2024 Ferritin [Mass/Vol] 91 ng/mL Normal 8-252 [facility] Comment on above: Order Comment: 1 Performed By: #### L 800.1280, L100.0100, L3130.0010, L803.2200, L504.2610, L501.6710, L501.9985, L3890.6005, L3300.0100, L501.9520, L500.4100, L3400.0700, L3100.5450, L3300.1200, L503.6550, L300.3900, L3100.1850, L500.4050, L503.6030, L3000.0375, L3100.3425 #### [facility] [address] [place], [place], [id number] HIV - WCHon 09-03-2024 HIV Non-Reactive Normal Nonreactive [facility] Comment on above: Performed By: #### L 800.1280, L100.0100, L3130.0010, L803.2200, L504.2610, L501.6710, L501.9985, L3890.6005, L3300.0100, L501.9520, L500.4100, L3400.0700, L3100.5450, L3300.1200, L503.6550, L300.3900, L3100.1850, L500.4050, L503.6030, L3000.0375, L3100.3425 #### [facility] [address] [facility]. [place], [place], [id number] Hemoglobin A1con 09-03-2024 HbA1c (Bld) [Mass fraction] 5.2 % Normal 3.8-5.6 [facility] Comment on above: Result Comment: Norm al < 5.7 % Prediabetic 5.7 - 6.4 % Diabetic >or= 6.5 % Please note range changes. Performed By: #### L 800.1280, L100.0100, L3130.0010, L803.2200, L504.2610, L501.6710, L501.9985, L3890.6005, L3300.0100, L501.9520, L500.4100, L3400.0700, L3100.5450, L3300.1200, L503.6550, L300.3900, L3100.1850, L500.4050, L503.6030, L3000.0375, L3100.3425 #### [facility] [address] [facility] [place], [address] Iron+Iron Binding Capacityon 09-03-2024 Iron [Mass/Vol] 111 ug/dL Normal 50-170 [facility] Comment on above: Order Comment: 1 Performed By: #### L 800.1280, L100.0100, L3130.0010, L803.2200, L504.2610, L501.6710, L501.9985, L3890.6005, L3300.0100, L501.9520, L500.4100, L3400.0700, L3100.5450, L3300.1200, L503.6550, L300.3900, L3100.1850, L500.4050, L503.6030, L3000.0375, L3100.3425 #### [facility] [address] [facility] [place], [address] IRON SATURATION 35.6 Normal 15.0-55.0 [facility] Comment on above: Order Comment: 1 Performed By: #### L 800.1280, L100.0100, L3130.0010, L803.2200, L504.2610, L501.6710, L501.9985, L3890.6005, L3300.0100, L501.9520, L500.4100, L3400.0700, L3100.5450, L3300.1200, L503.6550, L300.3900, L3100.1850, L500.4050, L503.6030, L3000.0375, L3100.3425 #### [facility] [address] [facility] [place], [place], [id number] TIBC 312 ug/dL Normal 250-450 [facility] Comment on above: Order Comment: 1 Performed By: #### L 800.1280, L100.0100, L3130.0010, L803.2200, L504.2610, L501.6710, L501.9985, L3890.6005, L3300.0100, L501.9520, L500.4100, L3400.0700, L3100.5450, L3300.1200, L503.6550, L300.3900, L3100.1850, L500.4050, L503.6030, L3000.0375, L3100.3425 #### [facility] [address] [place], [place], [id number] LDHon 09-03-2024 LDH 193 U/L Normal 84-246 [facility] Comment on above: Order Comment: 1 Performed By: #### L 800.1280, L100.0100, L3130.0010, L803.2200, L504.2610, L501.6710, L501.9985, L3890.6005, L3300.0100, L501.9520, L500.4100, L3400.0700, L3100.5450, L3300.1200, L503.6550, L300.3900, L3100.1850, L500.4050, L503.6030, L3000.0375, L3100.3425 #### [facility] [address] [facility] [place], [place], [id number] Lipid Profileon 09-03-2024 Cholesterol [Mass/Vol] 144 mg/dL Normal 200 [facility] Comment on above: Order Comment: 1 Result Comment: <200 mg/dL Desirable 200-240 mg/dL Borderline >240 mg/dL High Risk Performed By: #### L 800.1280, L100.0100, L3130.0010, L803.2200, L504.2610, L501.6710, L501.9985, L3890.6005, L3300.0100, L501.9520, L500.4100, L3400.0700, L3100.5450, L3300.1200, L503.6550, L300.3900, L3100.1850, L500.4050, L503.6030, L3000.0375, L3100.3425 #### [facility] [address] [facility] [place], [address] (013) Cholesterol in HDL [Mass/Vol] 63 mg/dL Normal [facility] Comment on above: Order Comment: 1 Result Comment: The drugs N-Acetylcysteine and Metamizole may falsely depress this assay. Reference Range HDL <40 mg/dL Low HDL Cholesterol HDL >or= 60 mg/dL High HDL Cholesterol Performed By: #### L 800.1280, L100.0100, L3130.0010, L803.2200, L504.2610, L501.6710, L501.9985, L3890.6005, L3300.0100, L501.9520, L500.4100, L3400.0700, L3100.5450, L3300.1200, L503.6550, L300.3900, L3100.1850, L500.4050, L503.6030, L3000.0375, L3100.3425 #### [facility] [address] [facility] [place], [address] Cholesterol in LDL [Mass/Vol] 68 mg/dL Normal 0-130 [facility] Comment on above: Order Comment: 1 Performed By: #### L 800.1280, L100.0100, L3130.0010, L803.2200, L504.2610, L501.6710, L501.9985, L3890.6005, L3300.0100, L501.9520, L500.4100, L3400.0700, L3100.5450, L3300.1200, L503.6550, L300.3900, L3100.1850, L500.4050, L503.6030, L3000.0375, L3100.3425 #### [facility] [address] [place], [address] Cholesterol in VLDL [Mass/Vol] 13 mg/dL Normal 5-40 [facility] Comment on above: Order Comment: 1 Performed By: #### L 800.1280, L100.0100, L3130.0010, L803.2200, L504.2610, L501.6710, L501.9985, L3890.6005, L3300.0100, L501.9520, L500.4100, L3400.0700, L3100.5450, L3300.1200, L503.6550, L300.3900, L3100.1850, L500.4050, L503.6030, L3000.0375, L3100.3425 #### [facility] [address] [place], [address] Triglyceride [Mass/Vol] 67 mg/dL Normal [facility] Comment on above: Order Comment: 1 Result Comment: The drugs N-Acetylcysteine and Metamizole may falsely depress this assay. Serum Triglycerides Reference Interval Normal <150 mg/dL Borderline high 150 - 199 mg/dL High 200 - 499 mg/dL Very High > or = 500 mg/dL Performed By: #### L 800.1280, L100.0100, L3130.0010, L803.2200, L504.2610, L501.6710, L501.9985, L3890.6005, L3300.0100, L501.9520, L500.4100, L3400.0700, L3100.5450, L3300.1200, L503.6550, L300.3900, L3100.1850, L500.4050, L503.6030, L3000.0375, L3100.3425 #### [facility] [address] [place], [address] Prothrombin Time w/INRon INR Coag (PPP) [Relative time] 1.0 {INR} Normal [facility] Comment on above: Performed By: #### L 800.1280, L100.0100, L3130.0010, L803.2200, L504.2610, L501.6710, L501.9985, L3890.6005, L3300.0100, L501.9520, L500.4100, L3400.0700, L3100.5450, L3300.1200, L503.6550, L300.3900, L3100.1850, L500.4050, L503.6030, L3000.0375, L3100.3425 #### [facility] [address] [place], [place], [id number] PT Coag (PPP) [Time] 13.3 s Normal 11.7-14.9 [facility] Comment on above: Performed By: #### L 800.1280, L100.0100, L3130.0010, L803.2200, L504.2610, L501.6710, L501.9985, L3890.6005, L3300.0100, L501.9520, L500.4100, L3400.0700, L3100.5450, L3300.1200, L503.6550, L300.3900, L3100.1850, L500.4050, L503.6030, L3000.0375, L3100.3425 #### [facility] [address] [place], [place], [id number] Thyroid Stim Hormone (TSH)on 09-03-2024 TSH 3.010 uIU/mL Normal 0.358-3.740 [facility] Comment on above: Order Comment: 1 Performed By: #### L 800.1280, L100.0100, L3130.0010, L803.2200, L504.2610, L501.6710, L501.9985, L3890.6005, L3300.0100, L501.9520, L500.4100, L3400.0700, L3100.5450, L3300.1200, L503.6550, L300.3900, L3100.1850, L500.4050, L503.6030, L3000.0375, L3100.3425 #### [facility] [address] [place], [address] Internal Medicine Office Vis iton 08-31-2024 Internal Medicine Office Visit [facility] [address] [place] [address] OFFICE VISIT Date of Service: 09/03/24 MR#: [id number] Acct: [id number] Name: HECTOR LEON Rep #: [id number] : 1975 Provider: Dr. Dangelo santiago MD Age/Sex: 49/F Location: [facility] [place] Status: Signed Intake Vital Signs 02/21/24 07:30 02/29/24 08:50 09/03/24 07:57 Height 5 ft 1 in 5 ft 1 in 5 ft 1 in Weight: 209 lb BMI 39.4 BP 116/86 H Blood Pressure Location Lt brachial Position Sitting Respiration 16 Pulse 99 Pulse Source Monitor Temp 97.3 F L Temp Source Temporal Pulse Oximetry (%) 99 Oxygen Delivery Method room air Intake Visit Reasons: 6 m fu Chief Complaint: 6 M FU Is patient in pain?: No Allergies egg Allergy (Verified 09/03/24 07:52) Other Food Allergies: Uncoded Adverse Reaction (Verified 09/03/24 07:52) Abd cramps/diarrhea prednisone Adverse Reaction (Verified 09/03/24 07:52) Nausea/Vom/Diarrhea Medications ???Medication ???Instructions ???Recorded ???Confirmed ???Type polyethylene glycol 3350 17 4 g PO DAILY 01/10/24 09/03/24 History gram/dose oral powder (Miralax) psyllium husk 0.4 gram capsule 0.4 g PO DAILY 01/10/24 09/03/24 History (Metamucil) pantoprazole 40 mg tablet,delayed 40 mg PO DAILY #90 tabs 07/02/24 09/03/24 Rx release (Protonix) cholecalciferol (vitamin D3) 10 4,000 unit PO DAILY 09/03/24 09/03/24 History mcg (400 unit) capsule phentermine 37.5 mg capsule 37.5 mg PO QDAY 09/03/24 09/03/24 History topiramate 25 mg tablet 50 mg PO BID Migraines 09/03/24 09/03/24 History venlafaxine 75 mg capsule,extended 150 mg (2 x 75 mg) PO QHS #60 caps 09/03/24 Rx release 24 hr Have you fallen in the past year?: No PFSH Medical History IBS (irritable bowel syndrome) Migraine Back problem GERD (gastroesophageal reflux disease) Fatty liver Bilateral tinnitus Gallstones Morbid obesity Fibromyalgia Surgical History S/P cholecystectomy S/P tonsillectomy and adenoidectomy H/O tubal ligation H/O: hysterectomy Family History Mother Age: 67 Rheumatoid arthritis Hypertension Osteoporosis Thyroid disorder Anemia Anxiety Father Age: 70 Hypertension Hyperlipemia Grandmother VTE (venous thromboembolism) Maternal grandmother. Colon cancer Blood coagulation disorder Age related osteoporosis Rheumatoid arthritis Brother Age: 44 VTE (venous thromboembolism) CVA (cerebral vascular accident) Hypertension Rheumatoid arthritis Grandfather Alcoholism Grandmother Diabetes Heart disease Grandfather Diabetes Heart disease Aunt Schizophrenia Social History adopted: No household members: spouse, family and children current occupational status: unemployed pets and animals: Yes pets and animals: cat(s), dog(s), fish and farm animals sexually active: Yes Smoking Status: Never smoker Electronic Cigarette Use: not used alcohol intake: current alcohol intake frequency: holidays/special occasions only substance use type: does not use diet: lactose free and other caffeine: Yes (1) Type: coffee frequency: does not exercise seatbelt use: always do you feel safe at home: Yes HPI HPI Chief Complaint: 6 M FU Details: HECTOR LEON, is a 49 F who presents to the office today for a follow up. She has blood work ordered through her GI provider. She is due for some screening. She doesn't want a flu shot. She doesn't smoke and doesn't need any refills. She reports she is eating healthy and reports she has been more active. The patient did establish with GI since she was last seen. Labs were ordered for her fatty liver and diet/weight loss were recommended. She reports that she doesn't have another follow up scheduled yet. She reports she is still struggling with her mental health. At her last office visit, this was discussed and she wanted to wait to make adjustments as her topamax dose was just about to be adjusted. She didn't find that helped much, however. She reports she will get fidgety and impatient. She reports she still gets some panic attacks with leaving the house and continues to worry about things that she feels she shouldn't worry about. She reports she still gets teary eyed and angry about things. Since she was last seen, her effexor dose was increased. She did find the higher dose was helpful, but she continues to have symptoms. She reports she saw a counselor in the past, but reports she didn't like to talk about her problems. She has never seen a psychiatrist before. She reports her migraines have been intermittent. She she gets a facial droop and light sensitivity with (more content not included)... [facility] Office Visit (OBGYWM ) -- HECTOR LEON ([id number]) 1975 F [facility] Date Time Provider Department 06/25/24 9:50 AM FALLON LARSON OBGYWM During your visit today, we recorded the following information about you: Pulse Blood pressure Weight 100/minute 120/76 103 kg Fallon Larson MD 06/25/2024 12:20 PM Signed Some documentation from previous visit of 05/28/2024 was copied and pasted, documentation has been reviewed and edited as necessary for today's visit. Patient Summary: Hector is a 49 year old Female who presents for follow-up evaluation of obesity/weight management to treat and prevent related co-morbidities. In our previous visits we have discussed lifestyle intervention including a nutrition recommendations and physical activity optimization. Her last office visit was 1 month ago. Assessment/plan from last visit: - reviewed labs with patient - continue vit D supplement - reviewed cutting out more processed food adding whole foods- reviewed nutrition of protein bars- will stop consuming. - Continue protonix for GERD - continue tracking food and weight daily - reviewed constipation relief measures with medications - >5% TBW loss in initial 3 months of phentermine use qualifying for long-term off label treatment of obesity - Topiramate for migraines by PCP Interval History PT specifies the following items as new or significant updates since the last appointment: - lots of stressors this month- parents moved out, son visiting , home renovations, broke toe - feels cravings are there due to stress- has been able to stop herself- found another project, kept mind busy so she would not eat it. - is still tracking and feels that helps her - her goal is to get to 200lbs by xmas - getting about 90g protein per day, carbs averaging about - Adding squats with laundry- each piece - steps [phone] / day, parking further away -hardest part for her is not self sabotage. Weight loss since last vist: 8 lb Total weight lost: 22 lbs - Last Wt 06/25/24 : 102.9 kg (227 lb) 05/28/24 : 106.6 kg (235 lb) 04/10/24 : 112.9 kg (249 lb) Date: 04/10/2024 249 lb BMI: 47.05 5% weight loss = 236 lbs, 10% weight loss = 224 lbs Anti-obesity medications: Phentermine. 37.5 mg Benefit:makes her stop thinking about food, doesn't feel hungry Adverse effects: none Anti-obesity medications: Topiramate. 50 mg bid Benefit:was started for migraines Adverse effects: none AOM Medications: Topiramate Weight promoting medications: Effexor 75mg Previous Diet (initial appointment): Awake - 7:30 B - coffee azerbaijani sweet cream, apple juice (8oz) [place] wrap taco velásquez, watermelon juice (8oz) , oatmeal (packet), toast, blueberries , turkey sausage , hash browns S - fruit L - chipolte bowl chicken w/ guac, apple/pecan salad w/ chicken , chicken wrap, almonds, pretzels,pizza, S - halo oranges D - tilapia, brown rice spag, carrots, ludwin, garlic bread , beats, beans, cucumbers, veggie pizza slices, cheesy bread , cream cheese ragoons S - peach cobbler blizzard sometimes , sweets Fluids: coffee juice, stopped soda, 100 oz water per day Bedtime - 11:30pm Quality of diet: 24hr recall suggests healthy diet. Characterization of diet:Unstructured, unhealthy snacking, and increased consumption of sugar sweetened beverages. Criminal Analyst of impaired eating habits:lack of satiety, emotion, and does go back for seconds- more protein- meat- loves red meat but can't eat after gallbladder Eating Disorder no Cravings: savory- karmen cheese steaks, sometimes sweets Dietary changes: B - Owyn 32g S - L - owyn protein shake, sometimes oikos yogurt, lactate cottage cheese, oikos, salad with vinaigrette- iceburg with carrots, cabbage S - D - always a meat -grilled or baked- chicken, pork, green downing, peas, broccoli, celery, carrots, applesauce (homemade) brown rice 1/4c.-1/2c. , broccoli, baked fish, briseno cheese burger sliders S - Fluids - water 101 oz per day. Eating 3 meals a day, including breakfast Increasing water intake Controlling portions Increasing protein Reducing sugar-sweetened beverages Reducing carbohydrates Eating less take out/fast food Current Barriers: reduced physical activity Exercise: not structured- but tries to walk up and down driveway stable Stress: yes- parents live with her stable Sleep: 7 hrs, no OSAstable Estimated Creatinine Clearance: 99.1 mL/min (based on SCr of 0.8 mg/dL). PAST MEDICAL HISTORY Diagnosis Date Acute cholecystitis 12/12/2023 s/p lap td Crohn's disease (HCC) 2000 crohns disease, rectal bleeding resolved after hysterectomy. GI in [facility] Dysfunctional uterine bleeding 2006 s/p hysterectomy Dysmenorrhea Eczema Esophageal reflux Gastroesophageal reflux Fatty liver Fibromyalgia General (more content not included)... Normal [facility] EPIL EEG ROUTINEon [facility] EPIL EEG Routine [[id number]] Patient name: HECTOR LEON Start of test: 01/30/2024 10:44 End of test: 01/30/2024 11:09 Duration: 0 hr 25 min Requested By: RIANNA SHEA Staff Physician: Kun Lara EEG Fellow or [place]: Joyce Bolanos History: 48-year-old right-handed female here for evaluation regarding recurrent neurological events to rule out stroke. Patient admitted to [place] from 10/21 to 10/23 sudden onset facial droop, slurred speech and decreased sensation to left side. CT brain x2 and MRI negative. Patient presented to [place] ED on 10/31 with recurrent chest pain and left side facial droop. CTA of chest/abd/pelvis and CT brain negative. No triggers noted. Afterwards patient feels fatigued, slight headache, difficulty word finding, eyes don't want to focus. Within the last month, patient has been experiencing vision changes. EEG to evaluate. Conditions: Awake Sleep Photic Stimulation Auditory Stimulation Classifications: Normal (10-20 Scalp Electrodes, Anterior Temporal Electrodes, Awake, Sleep, Photic Stimulation, Auditory Stimulation) Interictal: Normal, Impression: This EEG is within normal limits. No epileptiform discharges or EEG seizures were seen during this recording. Diagnosis: Primary: R29.818 Transient neurological symptoms Interpreted and electronically signed by Kun Lara M.D., M.S. Date of signin02/02/2024 12:51 NEUROLOGY [facility] Kristopher 12-24-2023 JONNY Telephone (NOAH) -- HECTOR LEON ([id number]) 1975 F [facility] Date Time Provider Department 12/24/23 ISRAEL DE LA PAZ During your visit today, we recorded the following information about you: Israel De La Paz DO 12/24/2023 3:14 PM Signed Call patient event monitor was normal Emmanuel Mosqueda MA 12/26/2023 8:05 AM Signed Patient notified of the message and was agreeable with the results. Allergies As of Date: 12/24/2023 Noted Allergy Reaction BANANA 02/21/2012 8 - GI Upset EGGS (EGG) 02/21/2012 8 - GI Upset LACTOSE 02/21/2012 5 - Intolerance PREDNISONE 06/28/2019 14 - Other: See Comments Comments: Black stools Date Reviewed: 12/16/2023 Reviewed by: Minnie Silva LPN - Fully Assessed Prescriptions as of 12/26/2023 - oxyCODONE IR (ROXICODONE) 5 mg immediate release tablet Take 5 mg by mouth every 6 hours as needed for pain. - acetaminophen (TYLENOL) 500 mg tablet Take 1,000 mg by mouth every 8 hours as needed for pain. - aspirin, enteric coated (ASPIRIN, ENTERIC COATED) 81 mg EC tablet Take 81 mg by mouth daily with breakfast. - lansoprazole (PREVACID) 30 mg capsule Take 1 capsule by mouth daily before breakfast. 1/2 hr before meal. - atorvastatin (LIPITOR) 80 mg tablet Take 1 tablet by mouth once daily. - clobetasol (TEMOVATE) 0.05 % ointment Apply 1 application to affected area twice daily. TO AFFECTED AREA. 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] 10/22/2022 Vitamin D insufficiency [E55.9] 10/25/2022 History of cardiovascular stress test [Z92.89] 11/07/2023 Mixed hyperlipidemia [E78.2] 11/23/2023 Transient neurological symptoms [R29.818] 12/02/2023 Fatty liver [K76.0] 12/16/2023 Encounter Status:Closed by ISRAEL DE LA PAZ on 12/24/23 [facility] Basophil percentageOrdered B y: Maru Liu on 12-21-2023 Basophil percentage 0 SEEN /hpf 0-5 [facility] Bilirubin Test strip Ql (U)O rdered By: Maru Liu on 12-21-2023 Bilirubin Ql (U) Negative Negative [facility] Ketones Test strip Ql (U)Ord ered By: Maru Liu on 12-21-2023 Ketones Ql (U) Negative Negative [facility] Mucus LM Ql (Urine sed)Order ed By: Maru Liu on 12-21-2023 Mucus Ql (Urine sed) 1+ /hpf [facility] Nitrite Test strip Ql (U)Ord ered By: Maru Liu on 12-21-2023 Nitrite Ql (U) Negative Negative [facility] No Panel InformationOrdered By: Maru Liu on 12-21-2023 Urine RBC 0 SEEN /hpf 0-5 [facility] Protein Test strip Ql (U)Ord ered By: Maru Liu on 12-21-2023 Protein Ql (U) 30 mg/dl Negative [facility] Squamous epithelial cells de tection in urine sediment by light microscopyOrdered By: Maru Liu on 12-21-2023 Epithelial cells.squamous LM Ql (Urine sed) 0-5 SEEN /hpf 5-10 [facility] Urine blood detectionOrdered By: Maru Liu on 12-21-2023 RBC Ql (U) Negative Negative [facility] Urine clarityOrdered By: Nafisa Liu on 12-21-2023 Clarity (U) Sl. Cloudy Clear [facility] Urine color determinationOrd ered By: Maru Liu on 12-21-2023 Color (U) Yellow Yellow [facility] Urine glucose detectionOrder ed By: Maru Liu on 12-21-2023 Glucose Ql (U) Normal mg/dl Normal [facility] Urine leukocyte esterase det ection by dipstickOrdered By: Maru Liu on 12-21-2023 Leukocyte esterase Test strip Ql (U) Negative Negative [facility] Urine pHOrdered By: Maru escudero on 12-21-2023 pH (U) 6.0 [pH] 5.0 - 8.0 [facility] Urine sediment bacteria coun t by microscopy (number/high power field)Ordered By: Maru Liu on 12-21-2023 Bacteria LM.HPF (Urine sed) [#/Area] 1 /[HPF] None Seen [facility] Urine specific gravity measu rementOrdered By: Maru Liu on 12-21-2023 Specific gravity (U) [Rel density] 1.020 1.002-1.030 [facility] Urine urobilinogen measureme ntOrdered By: Maru Liu on 12-21-2023 Urobilinogen Ql (U) Normal mg/dl Normal [facility] CBC W Auto Differential pane l (Bld)on 12-16-2023 Basophils (Bld) [#/Vol] 0.03 10*3/uL [facility] Basophils/100 WBC (Bld) 0.5 % [facility] Differential cell count method Nom (Bld) Auto [facility] Eosinophils (Bld) [#/Vol] 0.15 10*3/uL [facility] Eosinophils/100 WBC (Bld) 2.4 % [facility] Erythrocyte distribution width (RBC) [Ratio] 12.5 % 11.5 - 15.0 % [facility] Hematocrit (Bld) [Volume fraction] 41.1 % 36.0 - 46.0 % [facility] Hemoglobin (Bld) [Mass/Vol] 13.6 g/dL 11.5 - 15.5 g/dL [facility] Immature granulocytes (Bld) [#/Vol] [facility] Immature granulocytes/100 WBC (Bld) 0.3 % [facility] Lymphocytes (Bld) [#/Vol] 2.65 10*3/uL [facility] Lymphocytes/100 WBC (Bld) 41.7 % [facility] MCH (RBC) [Entitic mass] 29.7 pg 26.0 - 34.0 pg [facility] MCHC (RBC) [Mass/Vol] 33.1 g/dL 30.5 - 36.0 g/dL [facility] MCV (RBC) [Entitic vol] 89.7 fL 80.0 - 100.0 fL [facility] Monocytes (Bld) [#/Vol] 0.52 10*3/uL [facility] Monocytes/100 WBC (Bld) 8.2 % [facility] Neutrophils (Bld) [#/Vol] 2.98 10*3/uL [facility] Neutrophils/100 WBC (Bld) 46.9 % [facility] Nucleated RBC (Bld) [#/Vol] [facility] [facility] Nucle[facility] RBC/100 WBC (Bld) [Ratio] 0.0 % /100 WBC [facility] Platelet mean volume (Bld) [Entitic vol] 9.9 fL 9.0 - 12.7 fL [facility] Platelets (Bld) [#/Vol] 322 10*3/uL [facility] RBC (Bld) [#/Vol] 4.58 10*6/uL 3.90 - 5.2 0 m/uL [facility] WBC (Bld) [#/Vol] 6.35 10*3/uL [facility] Comprehensive metabolic 2000 panelon 12-16-2023 Albumin [Mass/Vol] 3.9 g/dL 3.9 - 4.9 g/dL [facility] ALP [Catalytic activity/Vol] 112 U/L 34 - 123 U/L [facility] ALT [Catalytic activity/Vol] 113 U/L High 7 - 38 U/L [facility] Anion gap [Moles/Vol] 11 mmol/L 9 - 18 mmol/L [facility] AST [Catalytic activity/Vol] 64 U/L High 13 - 35 U/L [facility] Bilirubin [Mass/Vol] 0.6 mg/dL 0.2 - 1 .3 mg/dL [facility] Calcium [Mass/Vol] 9.5 mg/dL 8.5 - 10. 2 mg/dL [facility] Chloride [Moles/Vol] 103 mmol/L 97 - 10 5 mmol/L [facility] CO2 [Moles/Vol] 27 mmol/L 22 - 30 mmol/L [facility] Creatinine [Mass/Vol] 0.80 mg/dL 0.58 - 0.96 mg/dL [facility] GFR/1.73 sq M.predicted among non-blacks MDRD (S/P/Bld) [Vol rate/Area] 92 mL/min/{1.73_m2} - PINF [facility] Comment on above: Estimated Glomerular Filtration Rate (eGFR) is calculated using the 2020 CKD-EPI creatinine equation. This equation utilizes serum creatinine, sex, and age as parameters. The creatinine assay has traceable calibration to isotope dilution-mass spectrometry. Refer to KDIGO guidelines for clinical interpretation. In patients with unstable renal function, e.g. those with acute kidney injury, the eGFR may not accurately reflect actual GFR. Glucose [Mass/Vol] 98 mg/dL 74 - 99 mg/dL [facility] Comment on above: The [place] Di[employer] Association (ADA) provides guidance for cutoff values for fasting glucose and random glucose. The ADA defines fasting as no caloric intake for at least 8 hours. Fasting plasma glucose results between 100 to 125 mg/dL indicate increased risk for diabetes (prediabetes). Fasting plasma glucose results greater than or equal to 126 mg/dL meet the criteria for diagnosis of diabetes. In the absence of unequivocal hyperglycemia, results should be confirmed by repeat testing. In a patient with classic symptoms of hyperglycemia or hyperglycemic crisis, random plasma glucose results greater than or equal to 200 mg/dL meet the criteria for diagnosis of diabetes. Reference: Standards of Medical Care in Diabetes 2016, [place] [employer]. Diabetes Care. 2016.39(Suppl 1). Interpretation and review of laboratory results Abnormal [facility] Potassium [Moles/Vol] 4.3 mmol/L 3.7 - 5.1 mmol/L [facility] Protein [Mass/Vol] 7.5 g/dL 6.3 - 8.0 g/dL [facility] Sodium [Moles/Vol] 141 mmol/L 136 - 144 mmol/L [facility] Urea nitrogen [Mass/Vol] 8 mg/dL 7 - 21 mg/dL [facility] XR Chest PA and Lateralon Radiology Study observation (narrative) [facility] IMPRESSION: Streaky densities in the left lower lobe may be due to atelectasis or pneumonia Finishing Area Operator: CROW Transcribe Date/Time: Dec 16 2023 9:15A Dictated by : BLANK GRAHAM MD This examination was interpreted and the report reviewed and electronically signed by: BLANK GRAHAM MD on Dec 16 2023 9:16AM [facility] DIVISION OF RADIOLOGY * * *Final Report* * * DATE OF EXAM: Dec 16 2023 9:09AM WOX 5291 - XR CHEST 2V FRONTAL/LAT / PROCEDURE REASON: Productive cough * * * * Physician Interpretation * * * * EXAMINATION: CHEST RADIOGRAPH (2 VIEW FRONTAL & LATERAL) CLINICAL HISTORY: Productive cough MQ: XC2_6 EXAM DATE/TIME: 12/16/2023 9:09 AM COMPARISON: No relevant prior studies available. RESULT: Lines, tubes, and devices: None. Lungs and pleura: Streaky densities in the left lower lobe. No pleural effusion or pneumothorax. Cardiomediastinal silhouette: Normal cardiomediastinal silhouette. Bones and soft tissues: Unremarkable. DIVISION OF RADIOLOGY Provider, [facility] - 12/16/2023 * * *Final Report* * * DATE OF EXAM: Dec 16 2023 9:09AM WOX 5291 - XR CHEST 2V FRONTAL/LAT / PROCEDURE REASON: Productive cough * * * * Physician Interpretation * * * * EXAMINATION: CHEST RADIOGRAPH (2 VIEW FRONTAL & LATERAL) CLINICAL HISTORY: Productive cough MQ: XC2_6 EXAM DATE/TIME: 12/16/2023 9:09 AM COMPARISON: No relevant prior studies available. RESULT: Lines, tubes, and devices: None. Lungs and pleura: Streaky densities in the left lower lobe. No pleural effusion or pneumothorax. Cardiomediastinal silhouette: Normal cardiomediastinal silhouette. Bones and soft tissues: Unremarkable. IMPRESSION IMPRESSION: Streaky densities in the left lower lobe may be due to atelectasis or pneumonia Finishing Area Operator: PSCB Transcribe Date/Time: Dec 16 2023 9:15A Dictated by : BLANK GRAHAM MD This examination was interpreted and the report reviewed and electronically signed by: BLANK GRAHAM MD on Dec 16 2023 9:16AM EST [facility] XR Chest PA and LateralOrder ed By: [facility] Provider on 12-16-2023 [facility] Basophil percentageOrdered B y: Tl Juareztato on 12-14-2023 Bilirubin [Mass/Vol] 0.70 mg/dL 0.20-1.00 [facility] Comment on above: For patients on eltr ombopag therapy, use of Dimension [place] TBIL is not recommended. Chloride [Moles/Vol] 107 mmol/L 98-107 [facility] Glucose [Mass/Vol] 134 mg/dL 74-106 [facility] Comment on above: Fasting Glucose resu lt greater than or equal to 126 mg/dL suggests DIABETES MELLITUS per A.D.A. criteria. Hemoglobin (Bld) [Mass/Vol] 13.2 g/dL 12.0-15.0 [facility] Potassium [Moles/Vol] 4.4 mmol/L 3.5-5.1 [facility] Comment on above: Moderate Hemolysis, Result may be falsely increased. Protein [Mass/Vol] 7.3 g/dL 6.4-8.2 [facility] Sodium [Moles/Vol] 138 mmol/L 136-145 [facility] WBC (Bld) [#/Vol] 14.3 10*3/uL 4.4-11.0 [facility] Determination of erythrocyte mean corpuscular volume (MCV)Ordered By: Tl Tomas on 12-14-2023 MCV (RBC) [Entitic vol] 88.5 fL 81-99 [facility] Erythrocyte distribution wid th ratioOrdered By: Tl Tomas on 12-14-2023 Erythrocyte distribution width (RBC) [Ratio] 12.6 % 11.6-14.6 [facility] Erythrocyte distribution wid th standard deviationOrdered By: Tl Tomas on 12-14-2023 Erythrocyte distribution width (RBC) [Entitic vol] 40.9 fL 35.1-43.9 [facility] Hematocrit Auto (Bld) [Volum e fraction]Ordered By: Tl Tomas on 12-14-2023 Hematocrit (Bld) [Volume fraction] 39.1 % 37-47 [facility] Laboratory - Chemistry and C hemistry - challengeOrdered By: Tl Tomas on 12-14-2023 Albumin/Globulin [Mass ratio] 0.7 {ratio} 0.9-2.4 [facility] ALP [Catalytic activity/Vol] 111 U/L 45-117 [facility] ALT [Catalytic activity/Vol] 189 U/L 13-56 [facility] CO2 [Moles/Vol] 27.0 mmol/L 21.0-32.0 [facility] Globulin (S) [Mass/Vol] 4.3 g/dL 2.2-4.2 [facility] Urea nitrogen/Creatinine [Mass ratio] 11.6 mg/mg 10-20 [facility] Laboratory - Hematology and Cell countsOrdered By: Tl Tomas on 12-14-2023 MCH (RBC) [Entitic mass] 29.9 pg 27.0-32.0 [facility] MCHC (RBC) [Mass/Vol] 33.8 g/dL 32-36 [facility] Platelet mean volume (Bld) [Entitic vol] 9.8 fL 6.2-12.0 [facility] Platelets (Bld) [#/Vol] 310 10*3/uL 150-450 [facility] No Panel InformationOrdered By: Tl Tomas on 12-14-2023 Estimated Creatinine Clearance Calc 97.29 ml/min [facility] Estimated GFR (MDRD) Amer 91 mL/min >60 [facility] Comment on above: GFR Calc Estimated GFR (MDRD) Non-Af Amer 75 mL/min >60 [facility] Comment on above: Non- GFR Calc RBC Auto (Bld) [#/Vol]Ordere d By: Tl Tomas on 12-14-2023 RBC (Bld) [#/Vol] 4.42 10*6/uL 4.2-5.4 [facility] Serum or plasma calcium frankie urement (mass/volume)Ordered By: Tl Tomas on 12-14-2023 Calcium [Mass/Vol] 8.6 mg/dL 8.5-10.1 [facility] Serum or plasma creatinine m easurement (mass/volume)Ordered By: Tl Tomas on 12-14-2023 Creatinine [Mass/Vol] 0.86 mg/dL 0.55-1.02 [facility] Comment on above: The validity of the calculated GFR & GFRAA in patients over 70 years has not been determined. Clinical correlation is essential. Serum or plasma urea nitroge n measurement (mass/volume)Ordered By: Tl Tomas on 12-14-2023 Urea nitrogen [Mass/Vol] 10 mg/dL 7- [facility] Thin prep Papanicolaou smear with manual screeningOrdered By: Tl Tomas on 12-14-2023 Thin prep Papanicolaou smear with manual screening 3.0 g/dL 3.2-5.0 [facility] Thin prep Papanicolaou smear with manual screening 149 U/L 15-37 [facility] Comment on above: Moderate Hemolysis, Result may be falsely increased. Thin prep Papanicolaou smear with manual screening 4 5-15 [facility] Absolute lymphocyte countOrd ered By: Abiodun He on 12-13-2023 Lymphocytes Auto (Unsp spec) [#/Vol] 2.78 10*3/uL 0.83-4.51 [facility] Automated lymphocyte count a s percentage of total leukocytesOrdered By: Abiodun He on 12-13-2023 Lymphocytes/100 WBC Auto (Unsp spec) 25.2 % 19-41 [facility] Basophil percentageOrdered B y: Abiodun He on 12-13-2023 Basophil percentage 4.2 mg/dL 2.5-4.9 [facility] Basophils/100 WBC (Bld) 0.3 % 0-1 [facility] Eosinophils/100 WBC (Bld) 0.5 % 0-5 [facility] Monocytes/100 WBC (Bld) 5.8 % 0-10 [facility] Neutrophils (Bld) [#/Vol] 7.5 10*3/uL 2.0-7.7 [facility] Neutrophils/100 WBC (Bld) 67.8 % 47-70 [facility] Immature granulocytes/100 WB C Auto (Bld)Ordered By: Abiodun He on 12-13-2023 Immature granulocytes/100 WBC (Bld) 0.400 % 0.0-0.9 [facility] Comment on above: IG% - Immature Granu locytes (promyelocytes, myelocytes and metamyelocytes) > 1% indicates that a LEFT SHIFT is Present. LIPon 12-13-2023 Lipase Level 53 U/L Normal 16-77 [facility] ([place]) Comment on above: Performed By: #### L IP #### [place] [address] Laboratory - Chemistry and C hemistry - challengeOrdered By: Abiodun He on 12-13-2023 Magnesium [Mass/Vol] 2.2 mg/dL 1.6-2.6 [facility] Laboratory - Hematology and Cell countsOrdered By: Abiodun He on 12-13-2023 Nucleated RBC/100 WBC (Bld) [Ratio] 0 % 0-5 [facility] Absolute lymphocyte countOrd ered By: Elyse Weiss on 12-12-2023 Lymphocytes Auto (Unsp spec) [#/Vol] 6.10 10*3/uL 0.83-4.51 [facility] Automated lymphocyte count a s percentage of total leukocytesOrdered By: Elyse Weiss on 12-12-2023 Lymphocytes/100 WBC Auto (Unsp spec) 54.4 % 19-41 [facility] Basophil percentageOrdered B y: Elyse Weiss on 12-12-2023 Basophil percentage 0 SEEN /hpf 0-5 [facility] Basophils/100 WBC (Bld) 0.4 % 0-1 [facility] Bilirubin [Mass/Vol] 0.30 mg/dL 0.20-1.00 [facility] Comment on above: For patients on eltr ombopag therapy, use of Dimension [place] TBIL is not recommended. Chloride [Moles/Vol] 106 mmol/L 98-107 [facility] Eosinophils/100 WBC (Bld) 1.6 % 0-5 [facility] Glucose [Mass/Vol] 111 mg/dL 74-106 [facility] Comment on above: Fasting Glucose resu lt from 100 to 125 mg/dL suggests IMPAIRED HOMEOSTASIS per A.D.A. criteria. Hemoglobin (Bld) [Mass/Vol] 14.4 g/dL 12.0-15.0 [facility] Monocytes/100 WBC (Bld) 7.0 % 0-10 [facility] Neutrophils (Bld) [#/Vol] 4.1 10*3/uL 2.0-7.7 [facility] Neutrophils/100 WBC (Bld) 36.2 % 47-70 [facility] Potassium [Moles/Vol] 3.4 mmol/L 3.5-5.1 [facility] Protein [Mass/Vol] 7.6 g/dL 6.4-8.2 [facility] Sodium [Moles/Vol] 140 mmol/L 136-145 [facility] WBC (Bld) [#/Vol] 11.2 10*3/uL 4.4-11.0 [facility] Bilirubin Test strip Ql (U)O rdered By: Elyse Weiss on 12-12-2023 Bilirubin Ql (U) Negative Negative [facility] Blood manual differential co mment interpretation (narrative result)Ordered By: Elyse Weiss on 12-12-2023 Manual differential comment Temo (Bld) [Interp] SEE COMMENT [facility] Comment on above: LYMPHOCYTOSIS NOTED Blood platelet adequacy dete ction by light microscopyOrdered By: Elyse Weiss on 12-12-2023 Platelets LM Ql (Bld) ADEQUATE ADEQ [facility] Determination of erythrocyte mean corpuscular volume (MCV)Ordered By: Elyse Weiss on 12-12-2023 MCV (RBC) [Entitic vol] 86.6 fL 81-99 [facility] Direct bilirubinOrdered By: Elyse Weiss on 12-12-2023 Bilirubin.direct [Mass/Vol] 0.13 mg/dL 0.00-0.30 [facility] Erythrocyte distribution wid th ratioOrdered By: Elyse Weiss on 12-12-2023 Erythrocyte distribution width (RBC) [Ratio] 12.4 % 11.6-14.6 [facility] Erythrocyte distribution wid th standard deviationOrdered By: Elyse Weiss on 12-12-2023 Erythrocyte distribution width (RBC) [Entitic vol] 39.2 fL 35.1-43.9 [facility] Hematocrit Auto (Bld) [Volum e fraction]Ordered By: Elyse Weiss on 12-12-2023 Hematocrit (Bld) [Volume fraction] 42.7 % 37-47 [facility] Immature granulocytes/100 WB C Auto (Bld)Ordered By: Elyse Weiss on 12-12-2023 Immature granulocytes/100 WBC (Bld) 0.400 % 0.0-0.9 [facility] Comment on above: IG% - Immature Granu locytes (promyelocytes, myelocytes and metamyelocytes) > 1% indicates that a LEFT SHIFT is Present. Ketones Test strip Ql (U)Ord ered By: Elyse Weiss on 12-12-2023 Ketones Ql (U) Negative Negative [facility] LABORATORYOrdered By: SYSTEM SYSTEM on 12-12-2023 Lipase [Catalytic activity/Vol] 53 U/L Normal 16 - 77 U/L AO ADM SS Laboratory - Chemistry and C hemistry - challengeOrdered By: Elyse Weiss on 12-12-2023 ALP [Catalytic activity/Vol] 131 U/L 45-117 [facility] ALT [Catalytic activity/Vol] 48 U/L 13-56 [facility] CO2 [Moles/Vol] 28.0 mmol/L 21.0-32.0 [facility] Globulin (S) [Mass/Vol] 4.1 g/dL 2.2-4.2 [facility] Lipase [Catalytic activity/Vol] 53 U/L 13-75 [facility] Comment on above: Please note:LIPASE r evised reference range effective 22. New Lipase methodology. Expected to produce lower values than the previous assay method. NEW Reference Range: 13 - 75 U/L Urea nitrogen/Creatinine [Mass ratio] 17.2 mg/mg 10-20 [facility] Laboratory - Hematology and Cell countsOrdered By: Elyse Weiss on 12-12-2023 Anisocytosis Ql (Bld) RARE [facility] MCH (RBC) [Entitic mass] 29.2 pg 27.0-32.0 [facility] MCHC (RBC) [Mass/Vol] 33.7 g/dL 32-36 [facility] Nucleated RBC/100 WBC (Bld) [Ratio] 0 % 0-5 [facility] Platelet mean volume (Bld) [Entitic vol] 9.6 fL 6.2-12.0 [facility] Platelets (Bld) [#/Vol] 313 10*3/uL 150-450 [facility] Mucus LM Ql (Urine sed)Order ed By: Elyse Weiss on 12-12-2023 Mucus Ql (Urine sed) 0 SEEN /hpf [facility] Nitrite Test strip Ql (U)Ord ered By: Elyse Weiss on 12-12-2023 Nitrite Ql (U) Negative Negative [facility] No Panel InformationOrdered By: Elyse Weiss on 12-12-2023 Urine RBC 0 SEEN /hpf 0-5 [facility] Estimated Creatinine Clearance Calc 109.96 ml/min [facility] Estimated GFR (MDRD) Amer 106 mL/min >60 [facility] Comment on above: GFR Calc Estimated GFR (MDRD) Non-Af Amer 87 mL/min >60 [facility] Comment on above: Non- GFR Calc Troponin I High Sensitivity < 3 pg/mL 3.0-54.0 [facility] Comment on above: Please Note: New Tamar t Units and Gender Specific Reference Ranges. For more information see Policy Stat Procedure [place] High Sensitivity Troponin (TNIH) and attachments. Protein Test strip Ql (U)Ord ered By: Elyse Weiss on 12-12-2023 Protein Ql (U) Negative Negative [facility] RBC Auto (Bld) [#/Vol]Ordere d By: Elyse Weiss on 12-12-2023 RBC (Bld) [#/Vol] 4.93 10*6/uL 4.2-5.4 [facility] RBC morphologyOrdered By: Do marci Weiss on 12-12-2023 RBC morphology finding Nom (Bld) NORM C+C NORMAL NORM C&C [facility] Serum or plasma calcium frankie urement (mass/volume)Ordered By: Elyse Weiss on 12-12-2023 Calcium [Mass/Vol] 8.9 mg/dL 8.5-10.1 [facility] Serum or plasma creatinine m easurement (mass/volume)Ordered By: Elyse Weiss on 12-12-2023 Creatinine [Mass/Vol] 0.76 mg/dL 0.55-1.02 [facility] Comment on above: The validity of the calculated GFR & GFRAA in patients over 70 years has not been determined. Clinical correlation is essential. Serum or plasma urea nitroge n measurement (mass/volume)Ordered By: Elyse Weiss on 12-12-2023 Urea nitrogen [Mass/Vol] 13 mg/dL 7-18 [facility] Squamous epithelial cells de tection in urine sediment by light microscopyOrdered By: Elyse Weiss on 12-12-2023 Epithelial cells.squamous LM Ql (Urine sed) 0-5 SEEN /hpf 5-10 [facility] Thin prep Papanicolaou smear with manual screeningOrdered By: Elyse Weiss on 12-12-2023 Thin prep Papanicolaou smear with manual screening 3.5 g/dL 3.2-5.0 [facility] Thin prep Papanicolaou smear with manual screening 37 U/L 15-37 [facility] Thin prep Papanicolaou smear with manual screening 6 5-15 [facility] Urine blood detectionOrdered By: Elyse Weiss on 12-12-2023 RBC Ql (U) Negative Negative [facility] Urine clarityOrdered By: Farhat Weiss on 12-12-2023 Clarity (U) Clear Clear [facility] Urine color determinationOrd ered By: Elyse Weiss on 12-12-2023 Color (U) Yellow Yellow [facility] Urine glucose detectionOrder ed By: Elyse Weiss on 12-12-2023 Glucose Ql (U) Normal mg/dl Normal [facility] Urine leukocyte esterase det ection by dipstickOrdered By: Elyse Weiss on 12-12-2023 Leukocyte esterase Test strip Ql (U) Negative Negative [facility] Urine pHOrdered By: Elyse foster on 12-12-2023 pH (U) 7.0 [pH] 5.0 - 8.0 [facility] Urine sediment bacteria coun t by microscopy (number/high power field)Ordered By: Elyse Weiss on 12-12-2023 Bacteria LM.HPF (Urine sed) [#/Area] 0 /[HPF] None Seen [facility] Urine specific gravity measu rementOrdered By: Elyse Weiss on 12-12-2023 Specific gravity (U) [Rel density] 1.005 1.002-1.030 [facility] Urine urobilinogen measureme ntOrdered By: Elyse Weiss on 12-12-2023 Urobilinogen Ql (U) Normal mg/dl Normal [facility] VITAMIN D 25 HYDROXYon 12-06 25-hydroxyvitamin D3 [Mass/Vol] 24.6 ng/mL Low 31.0 - 80.0 ng/mL [facility] No Panel Informationon 11-29 [facility] CNOVon 11-23-2023 CNOV Office Visit (CAUNDO ) -- HECTOR LEON ([id number]) 1975 F [place] Date Time Provider Department 11/23/23 8:00 AM HUMZA HAYWARD During your visit today, we recorded the following information about you: Pulse Respiration Blood pressure Weight 76/minute 16/minute 132/84 117.1 kg Height 1.549 m Humza Hayward APRN.[employer] ARCHITECT 11/23/2023 7:26 PM Signed Date: November 23, 2023 Chief Complaint: New Patient CARD [facility] Follow Up ([facility] ER f/u- CP.) HISTORY OF PRESENT ILLNESS: Hector Leon is a 48 year old female who presents for [facility] Follow Up ([facility] ER f/u- CP.). Patient states that she went to [facility] ED due to left-sided facial drooping and palpitations. Patient states that she underwent head CT, brain MRI, and chest CT which were unremarkable. 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 Patient states that she has an upcoming appointment with her neurologist. Patient underwent exercise ECG which did not indicate ischemia. Echo report was unremarkable. Patient states that her left-sided facial weakness has significantly improved since going to the hospital. Patient denies chest pain, dyspnea, lightheadedness, or edema. ALLERGIES Allergen Reactions Banana GI Upset Eggs [Egg] GI Upset Lactose Intolerance Prednisone Other: See Comments Black stools PAST MEDICAL HISTORY: PAST MEDICAL HISTORY Diagnosis Date Crohn's disease ([facility]) 2000 crohns disease, rectal bleeding resolved after hysterectomy. GI in [place] Depression Dysfunctional uterine bleeding 2006 s/p hysterectomy Dysmenorrhea Eczema Esophageal reflux Gastroesophageal reflux Fibromyalgia Generalized anxiety disorder History of cardiovascular stress test 11/17/2020 The patient's resting heart rate was 85 bpm and blood pressure was 112/82 mmHg. The patient exercised according to the Modified Jagdish protocol. Total exercise 6 minutes and 15 seconds. The maximum heart rate was 134 bpm, which is 76% predicted for age. METs achieved was 4.4. The double product achieved was 41998. Peak heart rate was 134 bpm and peak blood pressure was 138/92 mmHg. History of echocardiogram 10/22/2023 LVEF 55-60%. No significant valvular abnormality. History of exercise stress test (without NM imaging) 11/07/2023 No electrocardiographic evidence of ischemia. Resting HR 68 bpm and BP was 116/80 mmHg. Exercised according to the Jagdish protocol. Test was terminated due to shortness of breath and leg fatigue. Total exercise time was 4 minutes and 30 seconds. Maximum HR was 157 bpm, which is 90% of the predicted heart rate for age. History of shingles 08/2023 LUQ, (L) flank, (L) posterior mid back. Lactose intolerance Lichen sclerosus Morbid obesity (HCC) Other acne Acne Recurrent cold sores Scalp psoriasis Vitamin D insufficiency PAST SURGICAL HISTORY Procedure Laterality Date COLONOSCOPY 2009 multiple for crohns disease. [employer]. Benign polyp COLONOSCOPY 09/21/2005 active colitis at [...] hysterectomy lavhbso PAST SURGICAL HISTORY OF tonsilectomy FAMILY HISTORY Problem Relation Age of Onset Rheumatologic disease Mother Diabetes Mother Arthritis Mother Hypothyroidism Mother Hypertension Father Lipids Father Rheumatologic disease Father RA Rheumatologic disease Brother RA Stroke Brother Colon Cancer Maternal Grandmother Emphysema Maternal Grandfather Alcohol/Drug Maternal Grandfather alcoholism Coronary Artery Disease Paternal Grandmother Diabetes Paternal Grandmother Stroke Paternal Grandmother Hypertension Paternal Grandfather Coronary Artery Disease Paternal Grandfather Diabetes Paternal Grandfather Stroke Paternal Grandfather Diabetes Son Cervical Cancer Maternal Aunt SOCIAL HISTORY: Tobacco Use: Quit 03/23/1993. Types: Cigarettes Alcohol Use: Not Currently (drinking causes LEFT shoulder pain) Drug Use: Never Employer And Job Title: No employer specified (unemployed) Years Of Education Completed: 14 years Marital Status: to Go with 3 children MEDICATIONS: Current Outpatient Medications Medication Sig gabapentin (NEURONTIN) 300 mg capsule Take 1 tablet PO daily x 1 week, then every other day x 1 week, then stop. aspirin, enteric coated (ASPIRIN, ENTERIC COATED) 81 mg EC tablet Take 81 mg by mout (more content not included)... Normal [facility] ECG COMPLETEon 11-23-2023 ECG COMPLETE Ventricular Rate : 6 8 BPM Atrial Rate : 68 BPM P-R Interval : 176 ms QRS Duration : 80 ms Q-T Interval : 406 ms QTC Calculation(Bazett) : 431 ms Calculated P [place] : 48 degrees Calculated R [place] : 58 degrees Calculated T [place] : 51 degrees Normal sinus rhythm Normal ECG No previous ECGs available Confirmed by ISRAEL DE LA PAZ DO ([id number]) on 11/25/2023 10:35:28 PM NAME : HECTOR LEON PID : [id number] : 1975 Gender : Female Race : ORD : [id number] Procedure Date : Nov 23 2023 08:18:04 Edit Date : Nov 25 2023 22:35:31 Diagnosis: Normal sinus rhythm Normal ECG No previous ECGs available Confirmed by ISRAEL DE LA PAZ DO ([id number]) on 11/25/2023 10:35:28 PM Test Reason : HCS Location : 2 : [facility] Overread By : ISRAEL DE LA PAZ DO Edited By : ISRAEL DE LA PAZ DO Referred By : MANDA MERCADO Acquired by : , [facility] EXERCISE STRESS ECG (WITHOUT IMAGING)on 11-07-2023 EXERCISE STRESS ECG (WITHOUT IMAGING) Stress Fish Peddler Report: Exercise Stress ECG (without Imaging) [facility] Date of service: 11/07/2023 8:40:03 AM Supervising physician: Tejas Hodgson MD PATIENT: Name: MRS. HECTOR LEON Age: 48 years Gender: F The supervising physician was in the department and immediately available. Final Stress ECG Report: Exercise Stress ECG (without Imaging) [facility] Date of service: 11/07/2023 8:40:03 AM Ordering physician: MANDA MERCADO obstetrics specialist: Gabby Andrade Image Processing Engineer: Yesi Cowna Interpreting physician: Tejas Hodgson MD Patient name: MRS. HECTOR LEON Age: 48 years Gender: F Indication: Chest pressure / Chest tightness Stress ECG Conclusion: Conclusion: Normal with exception due to low exercise tolerance, low heart rate recovery and abnormal [place] treadmill score Stress ECG Summary: The patient's resting heart rate was 68 bpm and blood pressure was 116/80 mmHg. The patient exercised according to the Jagdish protocol. The estimated end-exercise MET level achieved using the FRIEND equation was 5.1, which is in the bottom 10th percentile for age and sex. The estimated end-exercise MET level achieved using the previous ACSM equation was 5.8. The test was terminated due to shortness of breath and leg fatigue and the total exercise time was 4 minutes and 30 seconds. Other symptoms during the test included chest discomfort, SOB and leg fatigue. The maximum heart rate was 157 bpm, which is 90% of the predicted heart rate for age. This is an adequate heart rate response. Peak blood pressure was 166/86 mmHg. The double product achieved was 8[address]. Medications: Last Used ASPIRIN LIPITOR OMEPRAZOLE NEURONTIN PREVACID Resting ECG: Normal Sinus Rhythm Symptoms at rest: Chest Discomfort Exercise Protocol: Jagdish Stress Exercise Table: +-----+ +------- -+ +---+---+---+- ---+----+ Stage Speed (MPH) Grade(%) Time (min) HR SYS PRAVEEN RPE METS +-----+ +------- -+ +---+---+---+- ---+----+ 1 1.7 10.0 3.0 129 148 90 14.0 4.2 +-----+ +------- -+ +---+---+---+- ---+----+ +-----+ +------- --+ +---+---+---+ ----+----+ Speed (MPH) Grade (%) Time (min) HR SYS PRAVEEN RPE METS +-----+ +------- --+ +---+---+---+ ----+----+ Final 2.5 12.0 4.50 157 166 86 17.0 5.1 +-----+ +------- --+ +---+---+---+ ----+----+ Recovery Table: +------+ +----+-- -+---+ Stage Time (min) HR SYS PRAVEEN +------+ +----+-- -+---+ 1 1.0 153 154 90 +------+ +----+-- -+---+ 2 2.0 122 132 80 +------+ +----+-- -+---+ 3 3.0 1055 124 84 +------+ +----+-- -+---+ 4 5.0 100 118 78 +------+ +----+-- -+---+ Stress Observations: Resting HR: 68 bpm Peak HR: 157 bpm (90% MPHR) Resting BP: 116 / 80 mmHg Peak BP: 166 / 86 mmHg Total Exercise Time: 4 minutes 30 seconds METS achieved: 5.1 Chronotropic response index (CRI): 0.84 Heart rate recovery (HRR): 4 bpm Rate Pressure Product (RPP): 27864 [place] Treadmill Score: 4.5 Stress Exercise Observations: Reason for test termination: shortness of breath and leg fatigue, Symptoms during test: Other symptoms during the test included chest discomfort, SOB and leg fatigue, Heart rate response: Adequate heart rate response, Normal CRI (>0.8 Not on B Maria T) and Very Abnormal HRR (<=8 or <=[address]/EC), Blood pressure response: Normal BP response, ST segment and T wave changes: No ST changes, [place] Treadmill Score: Abnormal [place] Treadmill Score (<5 but >= -10) and Arrhythmias: No arrhythmias Comments: pt c/o chest discomfort at rest, pt states I have had this ache discomfort increased with exercise and then back to baseline in recovery IMPORTANT NOTE REGARDING ESTIMATED MET VALUES: Effective 06/15/2020, the reference equation for determining estimated MET values for [facility] stress tests changed. Comparison of test results before and after that date may show a change in estimated MET values for peak/max exercise despite a test duration that is similar in length. The validity of the new FRIEND equation for exercise METS is endorsed by the [place] [employer]. Dora P, Luzmaria LA, Abdulkadir R, Tommy J, Cornelius J. New Generalized Equation for Predicting Maximal Oxygen Uptake (from the Fitness Registry and the Importance of Exercise National Database). The [place] Journal of Cardiology. 2017;120(4):688-692). Final CC [employer] [facility] Image : [id number] (more content not included)... Normal [facility] Kristopher 11-04-2023 XIOMARAN Telephone ([facility]) -- HECTOR LEON ([id number]) 1975 F Date Time Provider Department 11/04/23 GABBY ANDRADE [facility] During your visit today, we recorded the following information about you: Gabby Andrade RN 11/04/2023 2:59 PM Signed Spoke with patient regarding reminder for stress test on Tuesday and given instructions Allergies As of Date: 11/04/2023 Noted Allergy Reaction BANANA 02/21/2012 8 - GI Upset EGGS (EGG) 02/21/2012 8 - GI Upset LACTOSE 02/21/2012 5 - Intolerance PREDNISONE 06/28/2019 14 - Other: See Comments Comments: Black stools Date Reviewed: 11/04/2023 Reviewed by: Minnie Silva LPN - Fully Assessed Reason for Visit: Reminder Call [[id number]] Prescriptions as of 11/04/2023 - aspirin, enteric coated (ASPIRIN, ENTERIC COATED) 81 mg EC tablet Take 81 mg by mouth once daily. - Omeprazole Magnesium (PRILOSEC OTC) 20 mg tablet Take 20 mg by mouth once daily. - atorvastatin (LIPITOR) 80 mg tablet Take 80 mg by mouth once daily. - lansoprazole (PREVACID) 30 mg capsule Take 1 capsule by mouth daily before breakfast. 1/2 hr before meal. - valACYclovir (VALTREX) 1 gram tablet Take 1,000 mg by mouth three times a day. Patient ran out of medication a couple days ago - gabapentin (NEURONTIN) 300 mg capsule Take 1 capsule by mouth two times a day for 30 days. - clobetasol (TEMOVATE) 0.05 % ointment Apply 1 application to affected area twice daily. TO AFFECTED AREA. 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] 10/22/2022 Vitamin D insufficiency [E55.9] 10/25/2022 Encounter Status:Closed by GABBY ANDRADE on 11/04/23 [facility] Absolute lymphocyte countOrd ered By: Nadia Cardenas on 11-01-2023 Lymphocytes Auto (Unsp spec) [#/Vol] 2.23 10*3/uL 0.83-4.51 [facility] Automated lymphocyte count a s percentage of total leukocytesOrdered By: Nadia Cardenas on 11-01-2023 Lymphocytes/100 WBC Auto (Unsp spec) 28.2 % 19-41 [facility] Basophil percentageOrdered B y: Nadia Cardenas on 11-01-2023 Basophils/100 WBC (Bld) 0.4 % 0-1 [facility] Bilirubin [Mass/Vol] 0.40 mg/dL 0.20-1.00 [facility] Comment on above: For patients on eltr ombopag therapy, use of Dimension [place] TBIL is not recommended. Chloride [Moles/Vol] 107 mmol/L 98-107 [facility] Eosinophils/100 WBC (Bld) 1.1 % 0-5 [facility] Glucose [Mass/Vol] 98 mg/dL 74-106 [facility] Hemoglobin (Bld) [Mass/Vol] 14.3 g/dL 12.0-15.0 [facility] Monocytes/100 WBC (Bld) 7.5 % 0-10 [facility] Neutrophils (Bld) [#/Vol] 4.9 10*3/uL 2.0-7.7 [facility] Neutrophils/100 WBC (Bld) 62.5 % 47-70 [facility] Potassium [Moles/Vol] 3.8 mmol/L 3.5-5.1 [facility] Protein [Mass/Vol] 7.7 g/dL 6.4-8.2 [facility] Sodium [Moles/Vol] 142 mmol/L 136-145 [facility] WBC (Bld) [#/Vol] 7.9 10*3/uL 4.4-11.0 [facility] Determination of erythrocyte mean corpuscular volume (MCV)Ordered By: Nadia Cardenas on 11-01-2023 MCV (RBC) [Entitic vol] 87.9 fL 81-99 [facility] Direct bilirubinOrdered By: Nadia Cardenas on 11-01-2023 Bilirubin.direct [Mass/Vol] 0.14 mg/dL 0.00-0.30 [facility] Erythrocyte distribution wid th ratioOrdered By: Nadia Cardenas on 11-01-2023 Erythrocyte distribution width (RBC) [Ratio] 12.5 % 11.6-14.6 [facility] Erythrocyte distribution wid th standard deviationOrdered By: Nadiacristal Cardenas on 11-01-2023 Erythrocyte distribution width (RBC) [Entitic vol] 40.4 fL 35.1-43.9 [facility] Hematocrit Auto (Bld) [Volum e fraction]Ordered By: Nadia Cardenas on 11-01-2023 Hematocrit (Bld) [Volume fraction] 42.0 % 37-47 [facility] Immature granulocytes/100 WB C Auto (Bld)Ordered By: Nadia Cardenas on 11-01-2023 Immature granulocytes/100 WBC (Bld) 0.300 % 0.0-0.9 [facility] Comment on above: IG% - Immature Granu locytes (promyelocytes, myelocytes and metamyelocytes) > 1% indicates that a LEFT SHIFT is Present. Laboratory - Chemistry and C hemistry - challengeOrdered By: Nadia Cardenas on 11-01-2023 ALP [Catalytic activity/Vol] 109 U/L 45-117 [facility] ALT [Catalytic activity/Vol] 40 U/L 13-56 [facility] CO2 [Moles/Vol] 28.0 mmol/L 21.0-32.0 [facility] Globulin (S) [Mass/Vol] 4.2 g/dL 2.2-4.2 [facility] Lipase [Catalytic activity/Vol] 44 U/L 13-75 [facility] Comment on above: Please note:LIPASE r evised reference range effective 22. New Lipase methodology. Expected to produce lower values than the previous assay method. NEW Reference Range: 13 - 75 U/L Urea nitrogen/Creatinine [Mass ratio] 14.3 mg/mg 10-20 [facility] Laboratory - Hematology and Cell countsOrdered By: Nadia Cardenas on 11-01-2023 MCH (RBC) [Entitic mass] 29.9 pg 27.0-32.0 [facility] MCHC (RBC) [Mass/Vol] 34.0 g/dL 32-36 [facility] Nucleated RBC/100 WBC (Bld) [Ratio] 0 % 0-5 [facility] Platelet mean volume (Bld) [Entitic vol] 9.5 fL 6.2-12.0 [facility] Platelets (Bld) [#/Vol] 280 10*3/uL 150-450 [facility] No Panel InformationOrdered By: Nadia Cardenas on 11-01-2023 Troponin I High Sensitivity 4 pg/mL 3.0-54.0 [facility] Comment on above: Please Note: New Tamar t Units and Gender Specific Reference Ranges. For more information see Policy Stat Procedure [place] High Sensitivity Troponin (TNIH) and attachments. D-Dimer Quantitative (PE/DVT) 1.31 FEU/ug/m 0.27-0.49 [facility] Comment on above: D-Dimer ELEVATED (>0 .49): Additional studies and clinicalassessments are indicated to conclude diagnosis of:Deep Vein Thrombosis (DVT) or Pulmonary Embolism (PE)CRITICAL VALUE VERIFIED. CALLED TO AAKASH VELÁZQUEZ (ER)11/01/23 1352 Bob Levine.RESULTS READ BACK BY SAME. Estimated GFR (MDRD) Amer 94 mL/min >60 [facility] Comment on above: GFR Calc Estimated GFR (MDRD) Non-Af Amer 78 mL/min >60 [facility] Comment on above: Non- GFR Calc RBC Auto (Bld) [#/Vol]Ordere d By: Nadia Cardenas on 11-01-2023 RBC (Bld) [#/Vol] 4.78 10*6/uL 4.2-5.4 [facility] Serum or plasma calcium frankie urement (mass/volume)Ordered By: Nadia Cardenas on 11-01-2023 Calcium [Mass/Vol] 9.2 mg/dL 8.5-10.1 [facility] Serum or plasma creatinine m easurement (mass/volume)Ordered By: Nadia Cardenas on 11-01-2023 Creatinine [Mass/Vol] 0.84 mg/dL 0.55-1.02 [facility] Comment on above: The validity of the calculated GFR & GFRAA in patients over 70 years has not been determined. Clinical correlation is essential. Serum or plasma thyroid stim ulating hormone (TSH) measurement (units/volume)Ordered By: Nadia Cardenas on 11-01-2023 TSH Qn 2.96 uIU/mL 0.358-3.74 [facility] Serum or plasma urea nitroge n measurement (mass/volume)Ordered By: Nadia Cardenas on 11-01-2023 Urea nitrogen [Mass/Vol] 12 mg/dL 7-18 [facility] Thin prep Papanicolaou smear with manual screeningOrdered By: Nadia Cardenas on 11-01-2023 Thin prep Papanicolaou smear with manual screening 3.5 g/dL 3.2-5.0 [facility] Thin prep Papanicolaou smear with manual screening 35 U/L 15-37 [facility] Thin prep Papanicolaou smear with manual screening 7 5-15 [facility] Absolute lymphocyte countOrd ered By: Leilani Reece on 10-23-2023 Lymphocytes Auto (Unsp spec) [#/Vol] 2.67 10*3/uL 0.83-4.51 [facility] Automated lymphocyte count a s percentage of total leukocytesOrdered By: Leilani Reece on 10-23-2023 Lymphocytes/100 WBC Auto (Unsp spec) 34.2 % 19-41 [facility] Basophil percentageOrdered B y: Leilani Reece on 10-23-2023 Basophils/100 WBC (Bld) 0.3 % 0-1 [facility] Chloride [Moles/Vol] 106 mmol/L 98-107 [facility] Eosinophils/100 WBC (Bld) 1.7 % 0-5 [facility] Glucose [Mass/Vol] 106 mg/dL 74-106 [facility] Comment on above: Fasting Glucose resu lt from 100 to 125 mg/dL suggests IMPAIRED HOMEOSTASIS per A.D.A. criteria. Hemoglobin (Bld) [Mass/Vol] 13.0 g/dL 12.0-15.0 [facility] Monocytes/100 WBC (Bld) 8.3 % 0-10 [facility] Neutrophils (Bld) [#/Vol] 4.3 10*3/uL 2.0-7.7 [facility] Neutrophils/100 WBC (Bld) 55.1 % 47-70 [facility] Potassium [Moles/Vol] 4.0 mmol/L 3.5-5.1 [facility] Sodium [Moles/Vol] 138 mmol/L 136-145 [facility] WBC (Bld) [#/Vol] 7.8 10*3/uL 4.4-11.0 [facility] Determination of erythrocyte mean corpuscular volume (MCV)Ordered By: Leilani Reece on 10-23-2023 MCV (RBC) [Entitic vol] 88.7 fL 81-99 [facility] Erythrocyte distribution wid th ratioOrdered By: Leilanimarleen Reece on 10-23-2023 Erythrocyte distribution width (RBC) [Ratio] 13.1 % 11.6-14.6 [facility] Erythrocyte distribution wid th standard deviationOrdered By: Leilani Reece on 10-23-2023 Erythrocyte distribution width (RBC) [Entitic vol] 42.5 fL 35.1-43.9 [facility] Hematocrit Auto (Bld) [Volum e fraction]Ordered By: Leilani Reece on 10-23-2023 Hematocrit (Bld) [Volume fraction] 39.2 % 37-47 [facility] Immature granulocytes/100 WB C Auto (Bld)Ordered By: Leilani Reece on 10-23-2023 Immature granulocytes/100 WBC (Bld) 0.400 % 0.0-0.9 [facility] Comment on above: IG% - Immature Granu locytes (promyelocytes, myelocytes and metamyelocytes) > 1% indicates that a LEFT SHIFT is Present. Laboratory - Chemistry and C hemistry - challengeOrdered By: Leilani Reece on 10-23-2023 CO2 [Moles/Vol] 28.0 mmol/L 21.0-32.0 [facility] Urea nitrogen/Creatinine [Mass ratio] 21.4 mg/mg 10-20 [facility] Laboratory - Hematology and Cell countsOrdered By: Leilani Reece on 10-23-2023 MCH (RBC) [Entitic mass] 29.4 pg 27.0-32.0 [facility] MCHC (RBC) [Mass/Vol] 33.2 g/dL 32-36 [facility] Nucleated RBC/100 WBC (Bld) [Ratio] 0 % 0-5 [facility] Platelet mean volume (Bld) [Entitic vol] 9.4 fL 6.2-12.0 [facility] Platelets (Bld) [#/Vol] 290 10*3/uL 150-450 [facility] No Panel InformationOrdered By: Leilani Reece on 10-23-2023 Estimated Creatinine Clearance Calc 120.67 ml/min [facility] Estimated GFR (MDRD) Amer 115 mL/min >60 [facility] Comment on above: GFR Calc Estimated GFR (MDRD) Non-Af Amer 95 mL/min >60 [facility] Comment on above: Non- GFR Calc RBC Auto (Bld) [#/Vol]Ordere d By: Leilani Reece on 10-23-2023 RBC (Bld) [#/Vol] 4.42 10*6/uL 4.2-5.4 [facility] Serum or plasma calcium frankie urement (mass/volume)Ordered By: Leilani Reece on 10-23-2023 Calcium [Mass/Vol] 8.8 mg/dL 8.5-10.1 [facility] Serum or plasma creatinine m easurement (mass/volume)Ordered By: Leilani Reece on 10-23-2023 Creatinine [Mass/Vol] 0.70 mg/dL 0.55-1.02 [facility] Comment on above: The validity of the calculated GFR & GFRAA in patients over 70 years has not been determined. Clinical correlation is essential. Serum or plasma urea nitroge n measurement (mass/volume)Ordered By: Leilani Reece on 10-23-2023 Urea nitrogen [Mass/Vol] 15 mg/dL 7-18 [facility] Thin prep Papanicolaou smear with manual screeningOrdered By: Leilani Reece on 10-23-2023 Thin prep Papanicolaou smear with manual screening 4 5-15 [facility] Basophil percentageOrdered B y: Ioana White on 10-22-2023 Bilirubin [Mass/Vol] 0.20 mg/dL 0.20-1.00 [facility] Comment on above: For patients on eltr ombopag therapy, use of Dimension [place] TBIL is not recommended. Cholesterol [Mass/Vol] 176 mg/dL <200 [facility] Comment on above: <200 mg/dL Desirable 200-240 mg/dL Borderline >240 mg/dL High Risk Protein [Mass/Vol] 6.6 g/dL 6.4-8.2 [facility] Triglyceride [Mass/Vol] 54 mg/dL <199 [facility] Comment on above: The drugs N-Acetylcy steine and Metamizole may falsely depress this assay.Serum Triglycerides Reference Interval Normal <150 mg/dL Borderline high 150 - 199 mg/dL High 200 - 499 mg/dL Very High > or = 500 mg/dL Laboratory - Chemistry and C hemistry - challengeOrdered By: Ioana Griffiths on 10-22-2023 Albumin/Globulin [Mass ratio] 0.9 {ratio} 0.9-2.4 [facility] ALP [Catalytic activity/Vol] 78 U/L 45-117 [facility] ALT [Catalytic activity/Vol] 45 U/L 13-56 [facility] Cholesterol in HDL [Mass/Vol] 55 mg/dL >40 [facility] Comment on above: The drugs N-Acetylcy steine and Metamizole may falsely depress this assay. Reference Range HDL <40 mg/dL Low HDL Cholesterol HDL >or= 60 mg/dL High HDL Cholesterol Cholesterol in LDL [Mass/Vol] 110 mg/dL 0-130 [facility] Globulin (S) [Mass/Vol] 3.5 g/dL 2.2-4.2 [facility] No Panel InformationOrdered By: Ioana Griffiths on 10-22-2023 Troponin I High Sensitivity 10 pg/mL 3.0-54.0 [facility] Comment on above: Please Note: New Tamar t Units and Gender Specific Reference Ranges. For more information see Policy Stat Procedure [place] High Sensitivity Troponin (TNIH) and attachments. VLDL Cholesterol 11 mg/dL 5-40 [facility] Serum or plasma thyroid stim ulating hormone (TSH) measurement (units/volume)Ordered By: Ioana Griffiths on 10-22-2023 TSH Qn 7.20 uIU/mL 0.358-3.74 [facility] Thin prep Papanicolaou smear with manual screeningOrdered By: Ioana Aye on 10-22-2023 Thin prep Papanicolaou smear with manual screening 3.1 g/dL 3.2-5.0 [facility] Thin prep Papanicolaou smear with manual screening 25 U/L 15-37 [facility] Thin prep Papanicolaou smear with manual screeningOrdered By: Leilani Reece on 10-22-2023 Thin prep Papanicolaou smear with manual screening 0.78 ng/dL 0.76-1.46 [facility] Whole blood hemoglobin A1c/t otal hemoglobin ratio (mass fraction)Ordered By: Ioana Aye on 10-22-2023 HbA1c (Bld) [Mass fraction] 5.5 % 3.8-5.6 [facility] Comment on above: Normal < 5.7 % Predi abetic 5.7 - 6.4 % Diabetic >or= 6.5 % Please note range changes. Absolute lymphocyte countOrd ered By: Nadia Cardenas on 10-21-2023 Lymphocytes Auto (Unsp spec) [#/Vol] 3.70 10*3/uL 0.83-4.51 [facility] Automated lymphocyte count a s percentage of total leukocytesOrdered By: Nadia Cardenas on 10-21-2023 Lymphocytes/100 WBC Auto (Unsp spec) 39.2 % 19-41 [facility] Basophil percentageOrdered B y: Nadia Cardenas on 10-21-2023 Basophils/100 WBC (Bld) 0.4 % 0-1 [facility] Bilirubin [Mass/Vol] 0.20 mg/dL 0.20-1.00 [facility] Comment on above: For patients on eltr ombopag therapy, use of Dimension [place] TBIL is not recommended. Chloride [Moles/Vol] 108 mmol/L 98-107 [facility] Eosinophils/100 WBC (Bld) 1.5 % 0-5 [facility] Glucose [Mass/Vol] 109 mg/dL 74-106 [facility] Comment on above: Fasting Glucose resu lt from 100 to 125 mg/dL suggests IMPAIRED HOMEOSTASIS per A.D.A. criteria. Hemoglobin (Bld) [Mass/Vol] 13.5 g/dL 12.0-15.0 [facility] Monocytes/100 WBC (Bld) 7.8 % 0-10 [facility] Neutrophils (Bld) [#/Vol] 4.8 10*3/uL 2.0-7.7 [facility] Neutrophils/100 WBC (Bld) 50.6 % 47-70 [facility] Potassium [Moles/Vol] 3.8 mmol/L 3.5-5.1 [facility] Protein [Mass/Vol] 7.1 g/dL 6.4-8.2 [facility] Sodium [Moles/Vol] 140 mmol/L 136-145 [facility] WBC (Bld) [#/Vol] 9.4 10*3/uL 4.4-11.0 [facility] Blood platelet adequacy dete ction by light microscopyOrdered By: Nadia Cardenas on 10-21-2023 Platelets LM Ql (Bld) ADEQUATE ADEQ [facility] Blood platelet morphology de termination (nominal result)Ordered By: Nadia Cardenas on 10-21-2023 Platelet morphology finding Nom (Bld) LARGE [facility] Determination of erythrocyte mean corpuscular volume (MCV)Ordered By: Nadia Cardenas on 10-21-2023 MCV (RBC) [Entitic vol] 88.6 fL 81-99 [facility] Direct bilirubinOrdered By: Nadia Cardenas on 10-21-2023 Bilirubin.direct [Mass/Vol] 0.10 mg/dL 0.00-0.30 [facility] Erythrocyte distribution wid th ratioOrdered By: Nadia Cardenas on 10-21-2023 Erythrocyte distribution width (RBC) [Ratio] 12.8 % 11.6-14.6 [facility] Erythrocyte distribution wid th standard deviationOrdered By: Nadia Cardenas on 10-21-2023 Erythrocyte distribution width (RBC) [Entitic vol] 42.0 fL 35.1-43.9 [facility] Hematocrit Auto (Bld) [Volum e fraction]Ordered By: Nadia Cardenas on 10-21-2023 Hematocrit (Bld) [Volume fraction] 40.3 % 37-47 [facility] Immature granulocytes/100 WB C Auto (Bld)Ordered By: Nadia Cardenas on 10-21-2023 Immature granulocytes/100 WBC (Bld) 0.500 % 0.0-0.9 [facility] Comment on above: IG% - Immature Granu locytes (promyelocytes, myelocytes and metamyelocytes) > 1% indicates that a LEFT SHIFT is Present. Laboratory - Chemistry and C hemistry - challengeOrdered By: Nadia Cardenas on 10-21-2023 ALP [Catalytic activity/Vol] 101 U/L 45-117 [facility] ALT [Catalytic activity/Vol] 47 U/L 13-56 [facility] CO2 [Moles/Vol] 25.0 mmol/L 21.0-32.0 [facility] Globulin (S) [Mass/Vol] 3.9 g/dL 2.2-4.2 [facility] Lipase [Catalytic activity/Vol] 35 U/L 13-75 [facility] Comment on above: Please note:LIPASE r evised reference range effective 22. New Lipase methodology. Expected to produce lower values than the previous assay method. NEW Reference Range: 13 - 75 U/L Urea nitrogen/Creatinine [Mass ratio] 21.0 mg/mg 10-20 [facility] Laboratory - Chemistry and C hemistry - challengeOrdered By: Ioana Griffiths on 10-21-2023 Magnesium [Mass/Vol] 2.2 mg/dL 1.6-2.6 [facility] Laboratory - Hematology and Cell countsOrdered By: Nadia Cardenas on 10-21-2023 Anisocytosis Ql (Bld) RARE [facility] MCH (RBC) [Entitic mass] 29.7 pg 27.0-32.0 [facility] MCHC (RBC) [Mass/Vol] 33.5 g/dL 32-36 [facility] Nucleated RBC/100 WBC (Bld) [Ratio] 0 % 0-5 [facility] Platelet mean volume (Bld) [Entitic vol] 9.8 fL 6.2-12.0 [facility] Platelets (Bld) [#/Vol] 288 10*3/uL 150-450 [facility] No Panel InformationOrdered By: Nadia Cardenas on 10-21-2023 D-Dimer Quantitative (PE/DVT) 1.30 FEU/ug/m 0.27-0.49 [facility] Comment on above: CRITICAL VALUE VERIF IED. CALLED TO MCKENNA STANLEY RN [id number] Abiodun Titus.RESULTS READ BACK BY SAME . D-Dimer ELEVATED (>0.49): Additional studies and clinicalassessments are indicated to conclude diagnosis of:Deep Vein Thrombosis (DVT) or Pulmonary Embolism (PE) Estimated Creatinine Clearance Calc 90.41 ml/min [facility] Estimated GFR (MDRD) Amer 81 mL/min >60 [facility] Comment on above: GFR Calc Estimated GFR (MDRD) Non-Af Amer 67 mL/min >60 [facility] Comment on above: Non- GFR Calc RBC Auto (Bld) [#/Vol]Ordere d By: Nadia Cardenas on 10-21-2023 RBC (Bld) [#/Vol] 4.55 10*6/uL 4.2-5.4 [facility] RBC morphologyOrdered By: Mirza Cardenas on 10-21-2023 RBC morphology finding Nom (Bld) N CHROM NORMAL NORM C&C [facility] Serum or plasma calcium frankie urement (mass/volume)Ordered By: Nadia Cardenas on 10-21-2023 Calcium [Mass/Vol] 9.2 mg/dL 8.5-10.1 [facility] Serum or plasma cardiac trop onin I panel by high sensitivity methodOrdered By: Nadia Cardenas on 10-21-2023 Tropinin I.cardiac panel High sensitivity method 8 pg/mL 3.0-54.0 [facility] Comment on above: Please Note: New Tamar t Units and Gender Specific Reference Ranges. For more information see Policy Stat Procedure [place] High Sensitivity Troponin (TNIH) and attachments. Serum or plasma creatinine m easurement (mass/volume)Ordered By: Nadia Cardenas on 10-21-2023 Creatinine [Mass/Vol] 0.95 mg/dL 0.55-1.02 [facility] Comment on above: The validity of the calculated GFR & GFRAA in patients over 70 years has not been determined. Clinical correlation is essential. Serum or plasma urea nitroge n measurement (mass/volume)Ordered By: Nadia Cardenas on 10-21-2023 Urea nitrogen [Mass/Vol] 20 mg/dL 7-18 [facility] Thin prep Papanicolaou smear with manual screeningOrdered By: Nadia Cardenas on 10-21-2023 Thin prep Papanicolaou smear with manual screening 3.2 g/dL 3.2-5.0 [facility] Thin prep Papanicolaou smear with manual screening 36 U/L 15-37 [facility] Thin prep Papanicolaou smear with manual screening 7 5-15 [facility] Thin prep Papanicolaou smear with manual screening 112 mg/dL 74-106 [facility] Comment on above: MANAGEMENT OF PATIEN T CARE PER NURSING PROTOCOL Basophil percentageOrdered B y: Erickson Smith on 09-27-2023 Basophil percentage 0 SEEN /hpf 0-5 [facility] Bilirubin Test strip Ql (U)O rdered By: Erickson Smith on 09-27-2023 Bilirubin Ql (U) Negative Negative [facility] Ketones Test strip Ql (U)Ord ered By: Erickson Smith on 09-27-2023 Ketones Ql (U) 5 mg/dl Negative [facility] Mucus LM Ql (Urine sed)Order ed By: Erickson Smith on 09-27-2023 Mucus Ql (Urine sed) 0 SEEN /hpf [facility] Nitrite Test strip Ql (U)Ord ered By: Erickson Smith on 09-27-2023 Nitrite Ql (U) Negative Negative [facility] No Panel InformationOrdered By: Erickson Smith on 09-27-2023 Urine RBC 0 SEEN /hpf 0-5 [facility] Protein Test strip Ql (U)Ord ered By: Erickson Smith on 09-27-2023 Protein Ql (U) 15 mg/dl Negative [facility] Squamous epithelial cells de tection in urine sediment by light microscopyOrdered By: Erickson Smith on 09-27-2023 Epithelial cells.squamous LM Ql (Urine sed) 0 SEEN /hpf 5-10 [facility] Urine blood detectionOrdered By: Erickson Smith on 09-27-2023 RBC Ql (U) Negative Negative [facility] Urine clarityOrdered By: Dinora Smith on 09-27-2023 Clarity (U) Clear Clear [facility] Urine color determinationOrd ered By: Erickson Smith on 09-27-2023 Color (U) Yellow Yellow [facility] Urine glucose detectionOrder ed By: Erickson Smith on 09-27-2023 Glucose Ql (U) Normal mg/dl Normal [facility] Urine leukocyte esterase det ection by dipstickOrdered By: Erickson Smith on 09-27-2023 Leukocyte esterase Test strip Ql (U) Negative Negative [facility] Urine pHOrdered By: Erickson alicia on 09-27-2023 pH (U) 6.0 [pH] 5.0 - 8.0 [facility] Urine sediment bacteria coun t by microscopy (number/high power field)Ordered By: Erickson Smith on 09-27-2023 Bacteria LM.HPF (Urine sed) [#/Area] 0 /[HPF] None Seen [facility] Urine specific gravity measu rementOrdered By: Erickson Smith on 09-27-2023 Specific gravity (U) [Rel density] 1.025 1.002-1.030 [facility] Urine urobilinogen measureme ntOrdered By: Erickson Smith on 09-27-2023 Urobilinogen Ql (U) Normal mg/dl Normal [facility] VITAMIN D 25 HYDROXYon 10-23 25-hydroxyvitamin D3 [Mass/Vol] 25.7 ng/mL Low 31.0 - 80.0 ng/mL [facility] CBC W Auto Differential pane l (Bld)on 10-22-2022 Basophils (Bld) [#/Vol] 0.03 10*3/uL <0.11 k/uL [facility] Basophils/100 WBC (Bld) 0.7 % [facility] Differential cell count method Nom (Bld) Auto [facility] Eosinophils (Bld) [#/Vol] 0.05 10*3/uL <0.46 k/uL [facility] Eosinophils/100 WBC (Bld) 1.2 % [facility] Erythrocyte distribution width (RBC) [Ratio] 12.3 % 11.5 - 15.0 % [facility] Hematocrit (Bld) [Volume fraction] 43.9 % 36.0 - 46.0 % [facility] Hemoglobin (Bld) [Mass/Vol] 14.2 g/dL 11.5 - 15.5 g/dL [facility] Immature granulocytes (Bld) [#/Vol] <0.10 k/uL [facility] Immature granulocytes/100 WBC (Bld) 0.2 % [facility] Lymphocytes (Bld) [#/Vol] 1.78 10*3/uL 1.00 - 4.00 k/uL [facility] Lymphocytes/100 WBC (Bld) 44.4 % [facility] MCH (RBC) [Entitic mass] 29.1 pg 26.0 - 34.0 pg [facility] MCHC (RBC) [Mass/Vol] 32.3 g/dL 30.5 - 36.0 g/dL [facility] MCV (RBC) [Entitic vol] 90.0 fL 80.0 - 100.0 fL [facility] Monocytes (Bld) [#/Vol] 0.90 10*3/uL High <0.87 k/uL [facility] Monocytes/100 WBC (Bld) 22.4 % [facility] Neutrophils (Bld) [#/Vol] 1.24 10*3/uL Low 1.45 - 7.50 k/uL [facility] Neutrophils/100 WBC (Bld) 31.1 % [facility] Nucleated RBC (Bld) [#/Vol] <0.01 k/uL [facility] Nucleated RBC/100 WBC (Bld) [Ratio] 0.0 /100 WBC [facility] Platelet mean volume (Bld) [Entitic vol] 10.2 fL 9.0 - 12.7 fL [facility] Platelets (Bld) [#/Vol] 240 10*3/uL 150 - 400 k/uL [facility] RBC (Bld) [#/Vol] 4.88 10*6/uL 3.90 - 5.2 0 m/uL [facility] WBC (Bld) [#/Vol] 4.01 10*3/uL 3.70 - 11. 00 k/uL [facility] Comprehensive metabolic 2000 panelon 10-22-2022 Albumin [Mass/Vol] 4.0 g/dL 3.9 - 4.9 g/dL [facility] ALP [Catalytic activity/Vol] 84 U/L 34 - 123 U/L [facility] ALT [Catalytic activity/Vol] 36 U/L 7 - 38 U/L [facility] Anion gap [Moles/Vol] 6 mmol/L Low 9 - 18 mmol/L [facility] AST [Catalytic activity/Vol] 38 U/L High 13 - 35 U/L [facility] Bilirubin [Mass/Vol] Low 0.2 - 1 .3 mg/dL [facility] Calcium [Mass/Vol] 8.9 mg/dL 8.5 - 10. 2 mg/dL [facility] Chloride [Moles/Vol] 103 mmol/L 97 - 10 5 mmol/L [facility] CO2 [Moles/Vol] 30 mmol/L 22 - 30 mmol/L [facility] Creatinine [Mass/Vol] 0.76 mg/dL 0.58 - 0.96 mg/dL [facility] Estimated Glomerular Filtration Rate 99 mL/min/1.73m >=60 mL/min/1.73m [facility] Glucose [Mass/Vol] 101 mg/dL High 74 - 99 mg/dL [facility] Potassium [Moles/Vol] 4.1 mmol/L 3.7 - 5.1 mmol/L [facility] Protein [Mass/Vol] 7.0 g/dL 6.3 - 8.0 g/dL [facility] Sodium [Moles/Vol] 139 mmol/L 136 - 144 mmol/L [facility] Urea nitrogen [Mass/Vol] 15 mg/dL 7 - 21 mg/dL [facility] HbA1c (Bld)on 10-22-2022 Average glucose Estimated from glycated hemoglobin (Bld) [Mass/Vol] 105 mg/dL [facility] HbA1c (Bld) [Mass fraction] 5.3 % 4.3 - 5.6 % [facility] Lipid 1996 panelon 3 Cholesterol [Mass/Vol] 163 mg/dL <200 mg/dL [facility] Cholesterol in HDL [Mass/Vol] 53 mg/dL >39 mg/dL [facility] Cholesterol in LDL [Mass/Vol] 97 mg/dL <100 mg/dL [facility] Cholesterol in LDL/Cholesterol in HDL [Mass ratio] 1.83 {ratio} <2.54 [facility] Cholesterol in VLDL [Mass/Vol] 13 mg/dL <30 mg/dL [facility] Cholesterol non HDL [Mass/Vol] 110 mg/dL <130 mg/dL [facility] Cholesterol.total/Cho lesterol in HDL [Mass ratio] 3.08 {ratio} <5.10 [facility] Fasting Time 12 hrs [facility] Triglyceride [Mass/Vol] 63 mg/dL <150 mg/dL [facility] TSH BLDon 10-22-2022 TSH Qn 2.580 m[IU]/L 0.270 - 4.200 mIU/L [facility] Influenza virus A and B RNA and SARS-CoV-2 (COVID-19) N gene panel JOVANI+probe (Resp)on 09-02-2022 FLUAV RNA JOVANI+probe Ql (Unsp spec) Negative Negative for Influenza A by RT-PCR [facility] FLUBV RNA JOVANI+probe Ql (Unsp spec) Negative Negative for Influenza B by RT-PCR [facility] SARS-CoV-2 (COVID-19) RNA JOVANI+probe Ql (Resp) SARS-CoV-2 (Agent of COVID-19) Not Detected by RT-PCR or equivalent method. Not Detected [facility] Vital Signs Date Time Vital Sign Value Performing Clinician Faci lity 04-08-2025 13:26-0400 Body height 154.9 cm Benton Allen APRN.SECURITY SOLUTIONS ARCHITECT Work Phone: [facility] 04-08-2025 13:26-0400 Body mass index (BMI) [Ratio] 40.53 kg/m2 Benton Allen APRN.SECURITY SOLUTIONS ARCHITECT Work Phone: [facility] 04-08-2025 13:26-0400 Body weight 97.3 kg Benton Allen APRN.SECURITY SOLUTIONS ARCHITECT Work Phone: [facility] 04-08-2025 13:26-0400 Diastolic blood pressure 73 mm[Hg] Benton Allen APRN.SECURITY SOLUTIONS ARCHITECT Work Phone: [facility] 04-08-2025 13:26-0400 Heart rate 87 /min Benton Allen APRN.SECURITY SOLUTIONS ARCHITECT Work Phone: [facility] 04-08-2025 13:26-0400 SaO2% (BldA) [Mass fraction] 99 % Benton Allen APRN.SECURITY SOLUTIONS ARCHITECT Work Phone: [facility] 04-08-2025 13:26-0400 Systolic blood pressure 113 mm[Hg] Benton Allen 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SECURITY SOLUTIONS ARCHITECT Work Phone: [facility] 02-28-2025 19:16-0400 Body mass index (BMI) [Ratio] 39.73 kg/m2 Tanvir Praisler-Wood 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SECURITY SOLUTIONS ARCHITECT Work Phone: [facility] 02-28-2025 19:16-0400 Body temperature 97 [degF] Tanvir Praisler-Wood 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SECURITY SOLUTIONS ARCHITECT Work Phone: [facility] 02-28-2025 19:16-0400 Body weight 97.3 kg Tanvir Praisler-Wood 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SECURITY SOLUTIONS ARCHITECT Work Phone: [facility] 02-28-2025 19:16-0400 Diastolic blood pressure 91 mm[Hg] Tanvir Praisler-Wood 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SECURITY SOLUTIONS ARCHITECT Work Phone: [facility] 02-28-2025 19:16-0400 Heart rate 80 /min Tanvir Praisler-Wood 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SECURITY SOLUTIONS ARCHITECT Work Phone: [facility] 02-28-2025 19:16-0400 Respiratory rate 18 /min Tanvir Praisler-Wood 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SECURITY SOLUTIONS ARCHITECT Work Phone: [facility] 02-28-2025 19:16-0400 SaO2% (BldA) [Mass fraction] 99 % Tanvir Praisler-Wood 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SECURITY SOLUTIONS ARCHITECT Work Phone: [facility] 02-28-2025 19:16-0400 Systolic blood pressure 140 mm[Hg] Tanvir Praisler-Wood 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SECURITY SOLUTIONS ARCHITECT Work Phone: [facility] 01-14-2025 14:50-0400 Body mass index (BMI) [Ratio] 38.52 kg/m2 Fallon Costa MD Work Phone: [facility] 01-14-2025 14:50-0400 Body weight 94.35 kg Fallon Costa MD Work Phone: [facility] 01-14-2025 14:50-0400 Diastolic blood pressure 74 mm[Hg] Fallon Costa MD Work Phone: [facility] 01-14-2025 14:50-0400 Heart rate 80 /min Fallonalexandro Costa MD Work Phone: [facility] 01-14-2025 14:50-0400 SaO2% (BldA) [Mass fraction] 100 % Fallonvaldo Costa MD Work Phone: [facility] 01-14-2025 14:50-0400 Systolic blood pressure 126 mm[Hg] Fallonalexandro Costa MD Work Phone: [facility] 09-28-2024 09:43-0500 Body mass index (BMI) [Ratio] 37.41 kg/m2 Fallonvaldo Costa MD Work Phone: [facility] 09-28-2024 09:43-0500 Body weight 91.63 kg Fallonvaldo Costa MD Work Phone: [facility] 09-28-2024 09:43-0500 Diastolic blood pressure 82 mm[Hg] Fallonalexandro Costa MD Work Phone: [facility] 09-28-2024 09:43-0500 Heart rate 94 /min Fallonvaldo Costa MD Work Phone: [facility] 09-28-2024 09:43-0500 SaO2% (BldA) [Mass fraction] 100 % Fallonalexandro Costa MD Work Phone: [facility] 09-28-2024 09:43-0500 Systolic blood pressure 118 mm[Hg] Fallonalexandro Costa MD Work Phone: [facility] 06-25-2024 09:52-0400 Body mass index (BMI) [Ratio] 42.04 kg/m2 Fallon Costa MD Work Phone: [facility] 06-25-2024 09:52-0400 Body weight 102.97 kg Fallonvaldo Costa MD Work Phone: [facility] 06-25-2024 09:52-0400 Diastolic blood pressure 76 mm[Hg] Fallon Costa MD Work Phone: [facility] 06-25-2024 09:52-0400 Heart rate 100 /min Fallonvaldo Costa MD Work Phone: [facility] 06-25-2024 09:52-0400 SaO2% (BldA) [Mass fraction] 97 % Fallonalexandro Costa MD Work Phone: [facility] 06-25-2024 09:52-0400 Systolic blood pressure 120 mm[Hg] Fallon Costa MD Work Phone: [facility] 05-28-2024 14:28-0400 Body mass index (BMI) [Ratio] 43.52 kg/m2 Fallonvaldo Costa MD Work Phone: [facility] 05-28-2024 14:28-0400 Body weight 106.59 kg Fallonvaldo Costa MD Work Phone: [facility] 05-28-2024 14:28-0400 Diastolic blood pressure 80 mm[Hg] Fallon Costa MD Work Phone: [facility] 05-28-2024 14:28-0400 Heart rate 106 /min Fallonvaldo Costa MD Work Phone: [facility] 05-28-2024 14:28-0400 SaO2% (BldA) [Mass fraction] 99 % Fallonvaldo Costa MD Work Phone: [facility] 05-28-2024 14:28-0400 Systolic blood pressure 122 mm[Hg] Fallon Costa MD Work Phone: [facility] 04-10-2024 10:31-0400 Body height 156.5 cm Fallon Costa MD Work Phone: [facility] 04-10-2024 10:31-0400 Body mass index (BMI) [Ratio] 46.12 kg/m2 Fallon Costa MD Work Phone: [facility] 04-10-2024 10:31-0400 Body weight 112.95 kg Fallon Costa MD Work Phone: [facility] 04-10-2024 10:31-0400 Diastolic blood pressure 72 mm[Hg] Fallon Costa MD Work Phone: [facility] 04-10-2024 10:31-0400 Heart rate 78 /min Fallon Costa MD Work Phone: [facility] 04-10-2024 10:31-0400 SaO2% (BldA) [Mass fraction] 98 % Fallonvaldo Costa MD Work Phone: [facility] 04-10-2024 10:31-0400 Systolic blood pressure 120 mm[Hg] Fallon Costa MD Work Phone: [facility] 02-02-2024 09:01-0400 Body height 154.9 cm Abiodun Li MD Work Phone: [facility] 02-02-2024 09:01-0400 Body mass index (BMI) [Ratio] 47.9 kg/m2 Abiodun Li MD Work Phone: [facility] 02-02-2024 09:01-0400 Body weight 115 kg Abiodun Li MD Work Phone: [facility] 02-02-2024 09:01-0400 Diastolic blood pressure 81 mm[Hg] Abiodun Li MD Work Phone: [facility] 02-02-2024 09:01-0400 Heart rate 92 /min Abiodun Li MD Work Phone: [facility] 02-02-2024 09:01-0400 Systolic blood pressure 110 mm[Hg] Abiodun Li MD Work Phone: [facility] 12-28-2023 09:03-0400 Body mass index (BMI) [Ratio] 46.78 kg/m2 Yaritza Podlogar 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SECURITY SOLUTIONS ARCHITECT Work Phone: [facility] 12-28-2023 09:03-0400 Body temperature 98.4 [degF] Yaritza Podlogar 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SECURITY SOLUTIONS ARCHITECT Work Phone: [facility] 12-28-2023 09:03-0400 Body weight 115.3 kg Yaritza Podlogar 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SECURITY SOLUTIONS ARCHITECT Work Phone: [facility] 12-28-2023 09:03-0400 Diastolic blood pressure 86 mm[Hg] Yaritza Podlogar 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SECURITY SOLUTIONS ARCHITECT Work Phone: [facility] 12-28-2023 09:03-0400 Heart rate 70 /min Yaritza Podlogar 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SECURITY SOLUTIONS ARCHITECT Work Phone: [facility] 12-28-2023 09:03-0400 Respiratory rate 18 /min Yaritza Podlogar 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SECURITY SOLUTIONS ARCHITECT Work Phone: [facility] 12-28-2023 09:03-0400 SaO2% (BldA) [Mass fraction] 98 % Yaritza Podlogar 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SECURITY SOLUTIONS ARCHITECT Work Phone: [facility] 12-28-2023 09:03-0400 Systolic blood pressure 120 mm[Hg] Yaritza Podlogar 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SECURITY SOLUTIONS ARCHITECT Work Phone: [facility] 12-16-2023 08:11-0400 Body mass index (BMI) [Ratio] 47.63 kg/m2 Manda Mercado MD Work Phone: [facility] 12-16-2023 08:11-0400 Body temperature 97.11 [degF] Manda Mercado MD Work Phone: [facility] 12-16-2023 08:11-0400 Body weight 117.39 kg Manda Mercado MD Work Phone: [facility] 12-16-2023 08:11-0400 Diastolic blood pressure 82 mm[Hg] Manda Mercado MD Work Phone: [facility] 12-16-2023 08:11-0400 Heart rate 76 /min Manda Mercado MD Work Phone: [facility] 12-16-2023 08:11-0400 Respiratory rate 16 /min Manda Mercado MD Work Phone: [facility] 12-16-2023 08:11-0400 SaO2% (BldA) [Mass fraction] 96 % Manda Mercado MD Work Phone: [facility] 12-16-2023 08:11-0400 Systolic blood pressure 130 mm[Hg] Manda Mercado MD Work Phone: [facility] 12-14-2023 16:12-0400 Body height 156.[address] Mike eMrcado Work Phone: [facility] 12-14-2023 16:12-0400 Body weight 116.[address] Mike Mercado Work Phone: 8(355)149-317553 [place] [address] 12-14-2023 15:00-0400 Body temperature 98.1 [degF] Dr. Mike Mercado Work Phone: 8(271)819-967771 [place] [address] 12-14-2023 15:00-0400 Diastolic blood pressure 72 mm[Hg] Dr. Mike Mercado Work Phone: 9(548)100-881371 [place] [address] 12-14-2023 15:00-0400 Heart rate 90 /min Dr. Mike Mercado Work Phone: 7(177)626-652071 [place] [address] 12-14-2023 15:00-0400 Respiratory rate 14 /min Dr. Mike Mercado Work Phone: 2(714)799-772971 [place] [address] 12-14-2023 15:00-0400 SaO2% (BldA) [Mass fraction] 96 % Dr. Mike Mercado Work Phone: 5(686)553-434971 [place] [address] 12-14-2023 15:00-0400 Systolic blood pressure 137 mm[Hg] Dr. Mike Mercado Work Phone: 4(076)142-713853 [place] [address] 12-13-2023 17:30-0400 Inhaled oxygen flow rate 2 L/min Dr. Mike Mercado Work Phone: 5(795)690-954453 [place] [address] 12-13-2023 01:11-0400 Body mass index (BMI) [Ratio] 47.8 kg/m2 Dr. Mike Mercado Work Phone: 7(771)443-084553 [place] [address] 12-13-2023 00:31-0400 Diastolic blood pressure 87 mm[Hg] Dr. Mike Mercado Work Phone: 7(358)710-015253 [place] [address] 12-13-2023 00:31-0400 Heart rate 81 /min Dr. Mike Mercado Work Phone: 5(254)820-016553 [place] [address] 12-13-2023 00:31-0400 Respiratory rate 11 /min Dr. Mike Mercado Work Phone: 7(388)291-130053 [place] [address] 12-13-2023 00:31-0400 SaO2% (BldA) [Mass fraction] 96 % Dr. Mike Mercado Work Phone: 9(416)846-852553 [place] [address] 12-13-2023 00:31-0400 Systolic blood pressure 133 mm[Hg] Dr. Mike Mercado Work Phone: 9(592)608-375453 [place] [address] 12-13-2023 00:10-0400 Body temperature 98 [degF] Dr. Mike Mercado Work Phone: 6(927)975-739753 [place] [address] 12-12-2023 20:18-0400 Body height 154.[address] Mike Mercado Work Phone: 5(562)410-683853 [place] [address] 12-12-2023 20:18-0400 Body mass index (BMI) [Ratio] 48.5 kg/m2 Dr. Mike Mercado Work Phone: 0(579)214-816453 [place] [address] 12-12-2023 20:18-0400 Body weight 116.[address] Mike Mercado Work Phone: [facility] 12-07-2023 08:47-0400 Body height 157 cm Yaritza Podlogar 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SECURITY SOLUTIONS ARCHITECT Work Phone: [facility] 12-07-2023 08:47-0400 Body weight 116.76 kg Yaritza Podlogar 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SECURITY SOLUTIONS ARCHITECT Work Phone: [facility] 12-07-2023 08:47-0400 Diastolic blood pressure 86 mm[Hg] Yaritza Podlogar 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SECURITY SOLUTIONS ARCHITECT Work Phone: [facility] 12-07-2023 08:47-0400 Heart rate 87 /min Yaritza Podlogar 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SECURITY SOLUTIONS ARCHITECT Work Phone: [facility] 12-07-2023 08:47-0400 Respiratory rate 18 /min Yaritza Podlogar 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SECURITY SOLUTIONS ARCHITECT Work Phone: [facility] 12-07-2023 08:47-0400 SaO2% (BldA) [Mass fraction] 98 % Yaritza Podlogar 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SECURITY SOLUTIONS ARCHITECT Work Phone: [facility] 12-07-2023 08:47-0400 Systolic blood pressure 122 mm[Hg] Yaritza Podlogar 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SECURITY SOLUTIONS ARCHITECT Work Phone: [facility] 12-02-2023 08:39-0400 Body height 154.9 cm Rianna Shea MD Work Phone: [facility] 12-02-2023 08:39-0400 Body temperature 97.3 [degF] Rianna Shea MD Work Phone: [facility] 12-02-2023 08:39-0400 Body weight 115.94 kg Rianna Shea MD Work Phone: [facility] 12-02-2023 08:39-0400 Diastolic blood pressure 74 mm[Hg] Rianna Shea MD Work Phone: [facility] 12-02-2023 08:39-0400 Heart rate 78 /min Rianna Shea MD Work Phone: [facility] 12-02-2023 08:39-0400 Respiratory rate 14 /min Rianna Shea MD Work Phone: [facility] 12-02-2023 08:39-0400 SaO2% (BldA) [Mass fraction] 98 % Rianna Shea MD Work Phone: [facility] 12-02-2023 08:39-0400 Systolic blood pressure 110 mm[Hg] Rianna Shea MD Work Phone: [facility] 11-04-2023 09:53-0500 Body temperature 96.49 [degF] Manda Mercado MD Work Phone: [facility] 11-04-2023 09:53-0500 Body weight 117.48 kg Manda Mercado MD Work Phone: [facility] 11-04-2023 09:53-0500 Diastolic blood pressure 78 mm[Hg] Manda Mercado MD Work Phone: [facility] 11-04-2023 09:53-0500 Heart rate 83 /min Manda Mercado MD Work Phone: [facility] 11-04-2023 09:53-0500 Respiratory rate 16 /min Manda Mercado MD Work Phone: [facility] 11-04-2023 09:53-0500 SaO2% (BldA) [Mass fraction] 97 % Manda Mercado MD Work Phone: [facility] 11-04-2023 09:53-0500 Systolic blood pressure 122 mm[Hg] Manda Mercado MD Work Phone: [facility] 11-01-2023 17:16-0500 Body temperature 97.8 [degF] Dr. Mike Mercado Work Phone: [facility] 11-01-2023 17:16-0500 Diastolic blood pressure 115 mm[Hg] Dr. Mike Mercado Work Phone: [facility] 11-01-2023 17:16-0500 Heart rate 77 /min Dr. Mike Mercado Work Phone: 5(546)816-691253 [place] [address] 11-01-2023 17:16-0500 Respiratory rate 12 /min Dr. Mike Mercado Work Phone: 0(864)095-235853 [place] [address] 11-01-2023 17:16-0500 SaO2% (BldA) [Mass fraction] 97 % Dr. Mike Mercado Work Phone: 6(506)896-829553 [place] [address] 11-01-2023 17:16-0500 Systolic blood pressure 149 mm[Hg] Dr. Mike Mercado Work Phone: 8(417)835-586353 [place] [address] 10-23-2023 12:00-0500 Diastolic blood pressure 86 mm[Hg] Dr. Mike Mercado Work Phone: 7(084)719-673753 [place] [address] 10-23-2023 12:00-0500 Heart rate 84 /min Dr. Mike Mercado Work Phone: 8(262)095-659553 [place] [address] 10-23-2023 12:00-0500 Respiratory rate 15 /min Dr. Mike Mercado Work Phone: 6(979)171-710453 [place] [address] 10-23-2023 12:00-0500 SaO2% (BldA) [Mass fraction] 98 % Dr. Mike Mercado Work Phone: 7(610)262-833253 [place] [address] 10-23-2023 12:00-0500 Systolic blood pressure 115 mm[Hg] Dr. Mike Mercado Work Phone: 6(777)326-745853 [place] [address] 10-23-2023 07:00-0500 Body temperature 98.5 [degF] Dr. Mike Mercado Work Phone: 6(915)479-032553 [place] [address] 10-23-2023 04:06-0500 Body mass index (BMI) [Ratio] 49.4 kg/m2 Dr. Mike Mercado Work Phone: 0(306)713-500053 [place] [address] 10-23-2023 04:06-0500 Body weight 118.[address] Mike Mercado Work Phone: 9(535)754-518653 [place] [address] 10-22-2023 10:09-0500 Body height 154.[address] Mike Mercado Work Phone: [facility] 10-22-2023 00:04-0500 Body temperature 98.6 [degF] [facility] 10-22-2023 00:04-0500 Diastolic blood pressure 86 mm[Hg] [facility] 10-22-2023 00:04-0500 Heart rate 93 /min [facility] 10-22-2023 00:04-0500 Respiratory rate 22 /min [facility] 10-22-2023 00:04-0500 SaO2% (BldA) [Mass fraction] 100 % [facility] 10-22-2023 00:04-0500 Systolic blood pressure 133 mm[Hg] [facility] 10-21-2023 22:29-0500 Body mass index (BMI) [Ratio] 50.7 kg/m2 [facility] 10-21-2023 22:16-0500 Body height 154.94 cm [facility] 10-21-2023 22:16-0500 Body weight 121.8 kg [facility] 10-08-2023 10:19-0500 Body temperature 97.5 [degF] Manda Mercado MD Work Phone: [facility] 10-08-2023 10:19-0500 Body weight 118.66 kg Manda Mercado MD Work Phone: [facility] 10-08-2023 10:19-0500 Diastolic blood pressure 68 mm[Hg] Manda Mercado MD Work Phone: [facility] 10-08-2023 10:19-0500 Heart rate 90 /min Manda Mercado MD Work Phone: [facility] 10-08-2023 10:19-0500 Respiratory rate 16 /min Manda Mercado MD Work Phone: [facility] 10-08-2023 10:19-0500 SaO2% (BldA) [Mass fraction] 97 % Manda Mercado MD Work Phone: [facility] 10-08-2023 10:19-0500 Systolic blood pressure 118 mm[Hg] Manad Mercado MD Work Phone: [facility] 09-28-2023 00:08-0500 Diastolic blood pressure 74 mm[Hg] [facility] 09-28-2023 00:08-0500 Heart rate 91 /min [facility] 09-28-2023 00:08-0500 Respiratory rate 16 /min [facility] 09-28-2023 00:08-0500 SaO2% (BldA) [Mass fraction] 99 % [facility] 09-28-2023 00:08-0500 Systolic blood pressure 117 mm[Hg] [facility] 09-27-2023 20:48-0500 Body height 154.94 cm [facility] 09-27-2023 20:48-0500 Body mass index (BMI) [Ratio] 48.9 kg/m2 [facility] 09-27-2023 20:48-0500 Body temperature 97.5 [degF] [facility] 09-27-2023 20:48-0500 Body weight 117.48 kg [facility] 10-22-2022 07:57-0500 Body height 160 cm Manda Mercado MD Work Phone: [facility] 10-22-2022 07:57-0500 Body weight 116.39 kg Manda Mercado MD Work Phone: [facility] 10-22-2022 07:57-0500 Diastolic blood pressure 74 mm[Hg] Manda Mercado MD Work Phone: [facility] 10-22-2022 07:57-0500 Heart rate 91 /min Manda Mercado MD Work Phone: [facility] 10-22-2022 07:57-0500 Respiratory rate 16 /min Manda Mercado MD Work Phone: [facility] 10-22-2022 07:57-0500 SaO2% (BldA) [Mass fraction] 97 % Manda Mercado MD Work Phone: [facility] 10-22-2022 07:57-0500 Systolic blood pressure 108 mm[Hg] Manda Mercado MD Work Phone: [facility] 09-01-2022 19:01-0500 Body temperature 98.8 [degF] Jorgito Horta MD Work Phone: [facility] 09-01-2022 19:01-0500 Body weight 115.39 kg Jorgito Horta MD Work Phone: [facility] 09-01-2022 19:01-0500 Diastolic blood pressure 82 mm[Hg] Jorgito Horta MD Work Phone: [facility] 09-01-2022 19:01-0500 Heart rate 93 /min Jorgito Horta MD Work Phone: [facility] 09-01-2022 19:01-0500 Respiratory rate 20 /min Jorgito Horta MD Work Phone: [facility] 09-01-2022 19:01-0500 SaO2% (BldA) [Mass fraction] 97 % Jorgito Horta MD Work Phone: [facility] 09-01-2022 19:01-0500 Systolic blood pressure 128 mm[Hg] Jorgito Horta MD Work Phone: [facility] Encounters Encounter Date Encounter Type Care Provider Facility Start: 06-19-2025 End: 06-19-2025 ambulatory DANGELO G LORNE Facility:[facility] Start: 06-13-2025 End: 06-13-2025 ambulatory DANGELO G LORNE Facility:[facility] Start: 06-12-2025 End: 06-12-2025 ambulatory DANGELO G LORNE Facility:[facility] Start: 06-02-2025 End: 06-05-2025 Evaluation and management of inpatient DANGELO G LORNE Facility:[facility] Start: 05-17-2025 End: 05-17-2025 ambulatory ABIODUN LI Facility:[facility] Start: 05-16-2025 End: 05-16-2025 ambulatory DANGELO LEE Facility:[facility] Start: 05-13-2025 End: 05-13-2025 Patient encounter procedure Autonomic 1 Neur Main Work Phone: Neurology Start: 05-13-2025 End: 05-13-2025 ambulatory DANGELO LEE Neurology Comment on above: Procedure Start: 05-10-2025 End: 05-10-2025 ambulatory Dangelo Lee Facility[place] Start: 04-29-2025 End: 04-29-2025 Chart abstracting Abiodun Li MD Work Phone: [facility] Start: 04-25-2025 End: 04-25-2025 Telephone encounter Fallon Costa MD Work Phone: OB/Gynecology Comment on above: Medication Problem Start: 04-23-2025 End: 04-23-2025 Refill Fallon Costa MD Work Phone: Maternal Medicine Comment on above: Refill Request Start: 04-15-2025 End: 04-15-2025 Office outpatient new 60 minutes Carol Ann Webster MD Work Phone: Neurology Comment on above: Transient loss of co nsciousness Start: 04-15-2025 End: 04-15-2025 Orders Only Carol Ann Webster MD Work Phone: Neurology Comment on above: Convulsions, unspeci fied convulsion type (HCC) (Primary Dx) Start: 04-13-2025 End: 04-13-2025 ambulatory BENTON ALLEN Facility:[facility] Start: 04-08-2025 End: 04-08-2025 Patient encounter procedure Benton Allen 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SECURITY SOLUTIONS ARCHITECT Work Phone: Neurology Comment on above: Orthostatic lighthea dedness (Primary Dx); Transient loss of consciousness; Disturbance of skin sensation; Postural orthostatic tachycardia syndrome (POTS) Start: 04-08-2025 End: 04-09-2025 ambulatory BENTON ALLEN Facility:[facility] Start: 03-28-2025 ambulatory Dangelo Lee Facility :[facility] Start: 03-26-2025 End: 03-26-2025 Refill Fallon Costa MD Work Phone: OB/Gynecology Comment on above: Refill Request Start: 03-18-2025 End: 03-18-2025 Telephone encounter Fallon Costa MD Work Phone: OB/Gynecology Comment on above: Medication Question Start: 03-15-2025 End: 03-15-2025 Orders Only Yaneth Montenegro [facility] Work Phone: [facility] Comment on above: Hemiplegic migraine, intractable, without status migrainosus (Primary Dx) Start: 03-13-2025 End: 03-13-2025 ambulatory Shannan Velásquez Facility:[facility] Start: 03-12-2025 End: 03-12-2025 Transcribe Orders Dangelo Lee MD Work Phone: Referring Physician Comment on above: POTS (postural ortho static tachycardia syndrome) (Primary Dx); Palpitations Start: 02-28-2025 End: 02-28-2025 Patient encounter procedure Tanvir Torres APRN.CNP Work Phone: [facility] Comment on above: Hematuria, unspecifi ed type (Primary Dx); Acute cystitis without hematuria Start: 02-28-2025 End: 02-28-2025 ambulatory DANGELO LEE Facility:[facility] Start: 02-28-2025 End: 04-30-2025 Follow-up encounter Tanvir Torres APRN.CNP Work Phone: [facility] Start: 01-31-2025 End: 02-01-2025 Refill Abiodun Li MD Work Phone: Internal Medicine [place] Comment on above: Refill Request Start: 01-23-2025 End: 01-25-2025 Follow-up encounter Fallon Costa MD Work Phone: OB/Gynecology Start: 01-23-2025 End: 01-23-2025 ambulatory Shannan Velásquez Facility:[facility] Start: 01-14-2025 End: 01-14-2025 Patient encounter procedure Fallon Costa MD Work Phone: OB/Gynecology Comment on above: Mixed hyperlipidemia (Primary Dx); Vitamin D deficiency; Fatty liver; Gastroesophageal reflux disease without esophagitis; Fibromyalgia; Class 3 severe obesity due to excess calories with serious comorbidity and body mass index (BMI) of 45.0 to 49.9 in adult; Encounter for long-term (current) use of medications; Insulin resistance Start: 01-14-2025 End: 01-14-2025 ambulatory FALLON COSTA Facility:[facility] Start: 12-25-2024 ambulatory Dangelo Lorne Facility :[facility] Start: 12-25-2024 End: 12-25-2024 ambulatory Dangelo Lorne Facility:[facility] Start: 12-20-2024 End: 12-20-2024 ambulatory Dangelo Lorne Facility:[facility] Start: 12-12-2024 End: 12-12-2024 ambulatory Dangelo Lorne Facility:[facility] Start: 11-13-2024 ambulatory Abiodun He Facility: [facility] Start: 11-13-2024 End: 11-13-2024 ambulatory Dangelo Lorne Facility:[facility] Start: 10-15-2024 End: 10-15-2024 ambulatory Dangelo Lorne Facility:[facility] Start: 10-05-2024 ambulatory Dangelo [place] Facility :[facility] Start: 10-05-2024 End: 10-05-2024 ambulatory Dangelo Lorne Facility:[facility] Start: 10-02-2024 ambulatory Dangelo Lorne Facility :[facility] Start: 10-01-2024 End: 10-01-2024 ambulatory Dangelo Lorne Facility:[facility] Start: 09-28-2024 End: 09-28-2024 ambulatory FALLON COSTA Facility:[facility] Start: 09-28-2024 End: 09-28-2024 Patient encounter procedure Fallon Costa MD Work Phone: OB/Gynecology Comment on above: Mixed hyperlipidemia (Primary Dx); Vitamin D deficiency; Fatty liver; Gastroesophageal reflux disease without esophagitis; Fibromyalgia; Class 3 severe obesity due to excess calories with serious comorbidity and body mass index (BMI) of 45.0 to 49.9 in adult ([facility]) Start: 09-26-2024 End: 09-26-2024 Telephone encounter Fallon Costa MD Work Phone: OB/Gynecology Comment on above: Medication Problem Start: 09-03-2024 End: 09-03-2024 ambulatory Dangelo Lorne Facility:[facility] Start: 09-03-2024 End: 09-03-2024 ambulatory Dangelo [place] Facility:[facility] Start: 08-17-2024 End: 08-17-2024 Telemedicine consultation with patient Yaneth Montenegro MANA Work Phone: [employer] [facility]ERNICE [facility]IE[facility] Start: 08-17-2024 End: 08-17-2024 ambulatory Yaneth Montenegro [facility] Work Phone: [employer] [facility]ERNICE [facility]IE[facility] Comment on above: Intractable 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 Intractable 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 (Primary Dx) Start: 08-15-2024 End: 08-20-2024 ambulatory Manda Mercado MD Work Phone: Internal Medicine [place] [id number] Start: 06-25-2024 End: 06-25-2024 ambulatory FALLON COSTA Facility:[facility] Start: 06-25-2024 End: 06-25-2024 Patient encounter procedure Fallon Costa MD Work Phone: OB/Gynecology Comment on above: Mixed hyperlipidemia (Primary Dx); Vitamin D deficiency; Fatty liver; Gastroesophageal reflux disease without esophagitis; Fibromyalgia; Class 3 severe obesity due to excess calories with serious comorbidity and body mass index (BMI) of 45.0 to 49.9 in adult ([facility]) Start: 05-28-2024 End: 05-28-2024 Patient encounter procedure Fallon Costa MD Work Phone: OB/Gynecology Comment on above: Mixed hyperlipidemia (Primary Dx); Vitamin D deficiency; Fatty liver; Gastroesophageal reflux disease without esophagitis; Fibromyalgia; Class 3 severe obesity due to excess calories with serious comorbidity and body mass index (BMI) of 45.0 to 49.9 in adult ([facility]) Start: 04-12-2024 End: 04-18-2024 Telephone encounter Fallon Costa MD Work Phone: OB/Gynecology Start: 04-10-2024 End: 04-10-2024 Patient encounter procedure Fallon Costa MD Work Phone: OB/Gynecology Comment on above: Vitamin D deficiency (Primary Dx); Fatty liver; Gastroesophageal reflux disease without esophagitis; Mixed hyperlipidemia; Class 3 severe obesity due to excess calories with serious comorbidity and body mass index (BMI) of 45.0 to 49.9 in adult ([facility]); Fibromyalgia; Screening for diabetes mellitus; Screening for metabolic disorder; Screening for thyroid disorder Start: 02-02-2024 End: 02-02-2024 Patient encounter procedure Abiodun Li MD Work Phone: Neurology Comment on above: Pulsatile tinnitus, unspecified ear (Primary Dx); Transient neurological symptoms; 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; Analgesic rebound headache Start: 02-01-2024 Chart abstracting Abiodun Li MD Work Phone: Neurology Start: 02-01-2024 Telephone encounter Rianna Shea MD Work Phone: [facility] Comment on above: Results Start: 01-30-2024 End: 01-30-2024 Patient encounter procedure Eeg Neur [place] Work Phone: Neurology Comment on above: Transient neurologic al symptoms Start: 01-30-2024 End: 01-30-2024 ambulatory RIANNA SHEA Facility:[facility] Start: 12-28-2023 End: 12-28-2023 Patient encounter procedure Yaritza Fry APRN.CNP Work Phone: [facility] Comment on above: Popping of right ear (Primary Dx); Right ear pain Start: 12-23-2023 Telephone encounter Mike Mercado MD Work Phone: [facility] Comment on above: Patient Question Start: 12-21-2023 End: 12-21-[address] Mike Mercado Work Phone: [facility] Work Phone: Start: 12-21-2023 End: 12-21-[address] Mike Mercado Work Phone: [facility] Start: 12-21-2023 End: 12-21-[address] Mike Mercado Work Phone: [facility] Work Phone: Start: 12-19-2023 Telephone encounter Mike Mercado MD Work Phone: [facility] Comment on above: Results Start: 12-16-2023 Telephone encounter Mike Mercado MD Work Phone: [facility] Comment on above: Results Start: 12-16-2023 End: 12-16-2023 Subsequent hospital visit by physician [facility] Work Phone: Radiology Comment on above: Productive cough [R0 5.8] Start: 12-16-2023 End: 12-16-2023 Patient encounter procedure Manda Mercado MD Work Phone: [facility] Comment on above: Acute cholecystitis (Primary Dx); S/P laparoscopic cholecystectomy; Fatty liver; Productive cough; Elevated LFTs Start: 12-14-2023 Non-patient / Non-visit Dr. Amita Mercado Work Phone: [facility] Work Phone: Start: 12-14-2023 Non-patient / Non-visit Dr. Amita Mercado Work Phone: [facility] Start: 12-13-2023 Non-patient / Non-visit Dr. Amita Mercado Work Phone: [facility] Start: 12-13-2023 End: 12-18-2023 ambulatory ELYSE WEISS DO Facility:B Start: 12-13-2023 End: 12-17-2023 Outreach Lab ELYSE WEISS DO [facility] Start: 12-13-2023 Non-patient / Non-visit Dr. Amita Mercado Work Phone: [facility] Work Phone: Start: 12-12-2023 Non-patient / Non-visit Dr. Amita Mercado Work Phone: [facility] Start: 12-12-2023 End: 12-14-2023 Evaluation and management of inpatient Dr. Mike Mercado Work Phone: [facility] Work Phone: Start: 12-12-2023 End: 12-14-[address] Mike Mercado Work Phone: [facility] Work Phone: Start: 12-08-2023 Telephone encounter Mike Mercado MD Work Phone: [facility] Comment on above: Results Start: 12-07-2023 End: 12-07-2023 Patient encounter procedure Yaritza Fry APRN.CNP Work Phone: [facility] Comment on above: Annual physical exam (Primary Dx); Gastroesophageal reflux disease without esophagitis; Palpitations; Stroke-like symptoms; Vitamin D insufficiency Start: 12-02-2023 End: 12-02-2023 Patient encounter procedure Rianna Shea MD Work Phone: [facility] Comment on above: Transient neurologic al symptoms (Primary Dx); Stroke-like symptoms Start: 11-30-2023 End: 11-30-2023 Subsequent hospital visit by physician [facility] [employer] [facility] (I-Stat/1.5t) Work Phone: Radiology Comment on above: Transient cerebral i schemia, unspecified type [G45.9] Start: 11-23-2023 End: 11-23-2023 ambulatory HUMZA HAYWARD Facility:[id number] Start: 11-10-2023 Telephone encounter Mike Mercado MD Work Phone: [facility] Comment on above: Forms (FMLA for [employer]'s spouse, Go Leon.) Start: 11-07-2023 ambulatory MANDA MERCADO Facility:[facility] Start: 11-07-2023 End: 11-07-2023 Subsequent hospital visit by physician [facility] Work Phone: Cardiology Lab Comment on above: Chest pain, unspecif ied type [R07.9] Start: 11-04-2023 Telephone encounter Gabby bryant RN Cardiology Lab Comment on above: Reminder Call Patient Question Start: 11-04-2023 End: 11-04-2023 Patient encounter procedure Manda Mercado MD Work Phone: [facility] Comment on above: Stroke-like symptoms (Primary Dx); Transient cerebral ischemia, unspecified type; Chest pain, unspecified type; Migraine without status migrainosus, not intractable, unspecified migraine type Start: 11-01-2023 End: 11-01-2023 Emergency department patient visit Dr. Mike Mercado Work Phone: [facility] Work Phone: Start: 10-23-2023 Non-patient / Non-visit Dr. Amita Mercado Work Phone: [facility] Work Phone: Start: 10-22-2023 Non-patient / Non-visit Dr. Amita Mercado Work Phone: [facility] Work Phone: Start: 10-22-2023 Non-patient / Non-visit Dr. Amita Mercado Work Phone: [facility] Start: 10-21-2023 End: 10-23-2023 [facility] Work [facility]: Start: 10-08-2023 End: 10-08-2023 Patient encounter procedure Manda Mercado MD Work Phone: [facility] Comment on above: Herpes zoster withou t complication (Primary Dx); Post herpetic neuralgia; Bacterial conjunctivitis Start: 09-27-2023 End: 09-28-2023 Emergency department patient visit [facility] Work Phone: Start: 09-07-2023 ambulatory Manda Mercado MD Work Phone: [facility] Start: 10-25-2022 Telephone encounter Mike Mercado MD Work Phone: [facility] Comment on above: Results Start: 10-22-2022 End: 10-22-2022 Patient encounter procedure Manda Mercado MD Work Phone: [facility] Comment on above: Annual physical exam (Primary Dx); Gastroesophageal reflux disease, unspecified whether esophagitis present; Generalized anxiety disorder; Morbid obesity (HCC); Recurrent cold sores; Lichen sclerosus; HSV-1 (herpes simplex virus 1) infection Start: 09-29-2022 ambulatory Manda Mercado MD Work Phone: [facility] Start: 09-01-2022 End: 09-01-2022 Patient encounter procedure Jorgito Horta MD Work Phone: [facility] Comment on above: Influenza-like illne ss (Primary Dx); Costochondritis Procedures Date Procedure Procedure Detail Performing Clinician Start: 06-13-2025 Follow-up visit Follow Up CAROL ANN WEBSTER Start: 02-28-2025 Urnls dip stick/tablet rgnt auto w/o microscopy Tanvir Torres APRN.CNP Work Phone: Start: 01-30-2024 Electroencephalogram w/rec awake&drowsy Rianna Shea MD Work Phone: Start: 12-16-2023 Radiologic exam chest 2 views Mike Mercado MD Work Phone: Start: 12-13-[address] Mike Mercado Work Phone: Start: 12-13-[address] Mike Mercado Work Phone: Start: 12-13-2023 Total cholecystectomy and exploration of common bile duct Dr. Mike Mercado Work Phone: Start: 12-12-2023 US scan of gallbladder Dr. Mike Mercado Work Phone: Start: 12-06-2023 Lipid 1996 panel - Serum or Plasma Yaritza Fry APRN.[employer]URITY [employer]UTIONS ARCHITECT Work Phone: Start: 11-30-2023 Mra head w/o contrst material Mike Mercado MD Work Phone: Start: 11-07-2023 Cv strs tst xers&/or rx cont ecg trcg only Manda Mercado MD Work Phone: Start: 11-01-2023 CT of head without contrast Dr. Darell Mercado Work Phone: Start: 11-01-2023 CT of thorax, abdomen and pelvis with contrast Dr. Mike Mercado Work Phone: Start: 10-23-2023 MRI of brain without contrast Dr. Mitch Mercado Work Phone: Start: 10-22-2023 CT of head without contrast Dr. Darell Mercado Work Phone: Start: 10-22-2023 CT angiography of chest with contrast Dr. Mike Mercado Work Phone: Start: 10-21-2023 CT angiography of head and neck Start: 10-21-2023 CT of head without contrast Start: 10-21-2023 Plain chest X-ray Start: 10-22-2022 Lipid 1996 panel - Serum or Plasma Manda Mercado MD Work Phone: Start: 09-01-2022 COVID WITH FLUA+B, ROUTINE Jorgito almendarez MD Work Phone: Start: 07-04-2019 Mammography Jorgito Horta MD Work Phone: Start: 07-03-2019 Colonoscopy Jorgito Horta MD Work Phone: History of cholecystectomy S/P l aparoscopic cholecystectomy Manda Mercado MD Work Phone: History of cholecystectomy S/P cholecyste ctomy Dr. Mike Mercado Work Phone: Plan of Treatment Date Care Activity Detail Author Start: 06-28-2029 Urine microalbumin profile [facility] Start: 12-05-2028 Lipid panel Lipid Screening [facility] Start: 01-24-2028 [facility] Start: 10-22-2027 Lipid panel Lipid Screening [facility] Start: 10-22-2027 LIPID SCREEN LIPID SCREEN [facility] Start: 04-11-2027 Diabetes Screening Diabetes Screenin g [facility] Start: 12-15-2026 [facility] Start: 12-05-2026 [facility] Start: 11-24-2025 LIPID SCREEN LIPID SCREEN [facility] Start: 10-22-2025 DIABETES SCREEN DIABETES SCREEN [facility] Start: 10-22-2025 [facility] Start: 06-12-2025 End: 06-12-2025 Patient encounter procedure 06/12/2025 2:00 PM EDT Office Visit OB/Gynecology [address] [place] [address] Fallon Larson MD [address] [place], [place] [id number] weight management follow up OB/Gynecology Comment on above: weight management fo llow up Start: 06-02-2025 Evaluation and manag ement of inpatient 06/02/2025 Hospital Encounter [id number] [address] [id number] Owen Feldman MD [address] [place] [address] Unspecified convulsions (HCC) [R56.9] [facility] Comment on above: Unspecified convulsi ons (HCC) [R56.9] Start: 06-02-2025 End: 06-02-2025 Patient encounter procedure 06/02/2025 10:00 AM EDT Office Visit Neurology [address] [id number] ADMIT Neurology Comment on above: ADMIT Start: 05-17-2025 End: 05-17-2025 Patient encounter procedure 05/17/2025 4:30 PM EDT Office Visit Neurology [facility] [address] [place] [address] [place] [address] [place] [address] yearly f/u, more frequent black outs/headaches Neurology [facility] Comment on above: yearly f/u, more andrew quent black outs/headaches Start: 05-16-2025 End: 05-16-2025 Follow-up encounter 05/16/2025 11:45 AM EDT [facility] Neurology [address] [place] [address] Benton Allen, 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SECURITY SOLUTIONS ARCHITECT [address] [place] [address] follow up Neurology Comment on above: follow up Start: 05-13-2025 End: 05-13-2025 ambulatory Neurology Comment on above: Orthostatic lighthea dedness [R42] ANS TILT Start: 05-07-2025 End: 05-07-2025 Patient encounter procedure 05/07/2025 9:50 AM EDT Office Visit OB/Gynecology [address] [place], [place] [id number] Fallon Larson MD [address] [place] [address] weight management follow up OB/Gynecology Comment on above: weight management fo llow up Start: 04-29-2025 Influenza vaccination [facility] Start: 04-15-2025 End: 04-15-2025 ambulatory 04/15/2025 11:00 AM EDT [facility] Neurology [address] [place] [address] Carol Ann Webster MD [address] [place] [address] Transient loss of consciousness [R55] Neurology Comment on above: Transient loss of co nsciousness [R55] Start: 04-08-2025 End: 07-07-2025 CBC panel - Blood by Automated count COMPLETE BLOOD COUNT Lab Routine Orthostatic lightheadedness Expected: 04/08/2025, Expires: 07/07/2025 [facility] Comment on above: Expected: 04/08/2025 , Expires: 07/07/2025 Start: 04-08-2025 End: 07-07-2025 Cobalamin (Vitamin B12) [Mass/volume] in Serum or Plasma VITAMIN B12 Lab Routine Orthostatic lightheadedness Expected: 04/08/2025, Expires: 07/07/2025 [facility] Comment on above: Expected: 04/08/2025 , Expires: 07/07/2025 Start: 04-08-2025 End: 04-08-2025 Patient encounter procedure 04/08/2025 2:00 PM EDT Office Visit Neurology [address] [place] [address] Benton Allen, 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SECURITY SOLUTIONS ARCHITECT [address] [place] [address] POTS Neurology Comment on above: POTS Start: 03-18-2025 End: 03-18-2025 Patient encounter procedure 03/18/2025 10:50 AM EDT Office Visit OB/Gynecology [address] [place] [address] NeyFallon Guevara MD [address] [place] [address] weight management follow up OB/Gynecology Comment on above: weight management fo llow up Start: 03-15-2025 End: 03-15-2025 ambulatory 03/15/2025 4:00 PM EDT Results Only [place] [facility] Draw [address] [place] [id number] [facility] Draw Station Start: 03-15-2025 End: 06-14-2025 [facility] MISC SEND OUT TST 1 Lab Routine Hemiplegic migraine, intractable, without status migrainosus Expected: 03/15/2025, Expires: 06/14/2025 [facility] Work Phone: Comment on above: Expected: 03/15/2025 , Expires: 06/14/2025 Start: 01-21-2025 End: 04-22-2025 Comprehensive metabolic 2000 panel - Serum or Plasma COMPREHENSIVE METABOLIC PANEL Lab Routine Class 3 severe obesity due to excess calories with serious comorbidity and body mass index (BMI) of 45.0 to 49.9 in adult Encounter for long-term (current) use of medications Expected: 01/21/2025 (Approximate), Expires: 04/22/2025 [facility] Work Phone: Comment on above: Expected: 01/21/2025 (Approximate), Expires: 04/22/2025 Start: 01-21-2025 End: 04-22-2025 Insulin [Units/volume] in Serum or Plasma INSULIN, TOTAL, SERUM Lab Routine Class 3 severe obesity due to excess calories with serious comorbidity and body mass index (BMI) of 45.0 to 49.9 in adult Insulin resistance Expected: 01/21/2025 (Approximate), Expires: 04/22/2025 [facility] Comment on above: Expected: 01/21/2025 (Approximate), Expires: 04/22/2025 Start: 12-25-2024 End: 12-25-2024 Patient encounter procedure 12/25/2024 3:00 PM EDT Office Visit OB/Gynecology [address] [place] [address] Fallon Larson MD [address] [place] [address] weight management follow up OB[facility]Gynecology Comment on above[facility] Start: 09-28-2024 End: 09-28-2024 Patient encounter procedure 09/28/2024 9:50 AM EST Office Visit OB/Gynecology [address] [place] [address] Fallon Larson MD [address] [place] [address] weight management follow up OB/Gynecology Comment on above: weight management fo [facility] Start: 08-17-2024 End: 08-17-2024 ambulatory [facility] Comment on above: Intractable 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 [G43.419] Start: 08-13-2024 End: 08-13-2024 Patient encounter procedure 08/13/2024 2:00 PM EST Office Visit OB/Gynecology [address] [place] [address] Fallon Larson MD [address] [place] [address] weight management follow up OB/Gynecology Comment on above: weight management fo [facility] Start: 07-03-2024 Colonoscopy COLONOSCOPY [facility] Start: 07-03-2024 COLORECTAL CANCER SCREENING COLORECTAL CANCER SCREENING [facility] Start: 07-03-2024 Screening for malign ant neoplasm of colon [facility] Start: 06-25-2024 End: 06-25-2024 Patient encounter procedure 06/25/2024 9:50 AM EDT Office Visit OB/Gynecology [address] [place] [address] Fallon Larson MD [address] [place] [address] weight management follow up OB/Gynecology Comment on above: weight management fo [facility]low up Start: 05-28-2024 End: 05-28-2024 Patient encounter procedure 05/28/2024 2:30 PM EDT Office Visit OB/Gynecology [address] [place] [id number] Fallon Larson MD [address] [place] [address] weight management follow up OB/Gynecology Comment on above: weight management fo llow up Start: 04-29-2024 Covid-19 Vaccine ( season) Covid-19 Vaccine () [facility] Start: 04-29-2024 Covid-19 Vaccine () Covid-19 Vaccine () [facility] Start: 04-29-2024 Influenza vaccination [facility] Start: 04-10-2024 End: 07-10-2024 Comprehensive metabolic 2000 panel - Serum or Plasma COMPREHENSIVE METABOLIC PANEL Lab Routine Fatty liver Class 3 severe obesity due to excess calories with serious comorbidity and body mass index (BMI) of 45.0 to 49.9 in adult ([facility]) Screening for diabetes mellitus Screening for metabolic disorder Expected: 04/10/2024, Expires: 07/10/2024 [facility] Comment on above: Expected: 04/10/2024 , Expires: 07/10/2024 Start: 04-10-2024 End: 07-10-2024 Insulin [Units/volume] in Serum or Plasma INSULIN ASSAY BLOOD Lab Routine Class 3 severe obesity due to excess calories with serious comorbidity and body mass index (BMI) of 45.0 to 49.9 in adult (HCC) Screening for diabetes mellitus Expected: 04/10/2024, Expires: 07/10/2024 [facility] Work Phone: Comment on above: Expected: 04/10/2024 , Expires: 07/10/2024 Start: 04-10-2024 End: 07-10-2024 Thyrotropin [Units/volume] in Serum or Plasma THYROID STIMULATING HORMONE Lab Routine Class 3 severe obesity due to excess calories with serious comorbidity and body mass index (BMI) of 45.0 to 49.9 in adult (HCC) Screening for thyroid disorder Expected: 04/10/2024, Expires: 07/10/2024 [facility] Comment on above: Expected: 04/10/2024 , Expires: 07/10/2024 Start: 04-10-2024 End: 04-10-2024 Patient encounter procedure 04/10/2024 10:20 AM EDT Office Visit OB/Gynecology [address] [place] [address] Fallon Larson MD [address] [place] [address] [facility] OB/Gynecology Comment on above: [facility] Start: 03-09-2024 End: 03-09-2024 ambulatory 03/09/2024 8:30 AM EDT Results Only [facility] Draw Station [address] [facility] [place] [address] [facility] Draw Station Start: 03-08-2024 End: 06-07-2024 25-hydroxyvitamin D3 [Mass/volume] in Serum or Plasma VITAMIN D 25 HYDROXY Lab Routine Vitamin D insufficiency Expected: 03/08/2024, Expires: 06/07/2024 [facility] Work Phone: Comment on above: Expected: 03/08/2024 , Expires: 06/07/2024 Start: 02-02-2024 End: 02-02-2024 Patient encounter procedure 02/02/2024 9:30 AM EDT Office Visit Neurology [address] [place] [address] [place] [address] [place] [address] Dx: Transient neurological symptoms [R29.818] Neurology Comment on above: Dx: Transient neurol ogical symptoms [R29.818] Start: 01-30-2024 End: 01-30-2024 Patient encounter procedure 01/30/2024 10:15 AM EDT Office Visit Neurology [address] [place] [address] Dx: Transient neurological symptoms [R29.818] Neurology Comment on above: Dx: Transient neurol ogical symptoms [R29.818] Start: 12-21-2023 Patient referral [facility] Work Phone: Start: 12-14-2023 Patient discharge [facility] Start: 12-13-2023 Cholangiogram Cholangiogram/ O R,Initial [facility] Start: 12-13-2023 Fluoroscopic guidance O.R. Fluoro fo r C-Arm [facility] Start: 12-13-2023 [facility] Start: 12-13-2023 Application of intermittent pneumatic compression device [facility] Start: 12-13-2023 Following clinical pathway protocol [facility] Start: 12-13-2023 Hospital admission, emergency, from emergency room, medical nature [facility] Start: 12-12-2023 Incentive spirometry [facility] Start: 12-12-2023 [facility] Start: 12-12-2023 Admission procedure [facility] Start: 12-12-2023 Consultation [facility] Start: 12-12-2023 Blood chemistry [facility] Start: 12-12-2023 Triacylglycerol lipa se measurement [facility] Start: 12-12-2023 Troponin I measurement [facility] Start: 12-12-2023 [facility] Start: 12-12-2023 Anes intraperitoneal upper abdomen w/laps nos ANES IPER UPR ABD NOS [facility] Start: 12-12-2023 Bx lvr ndl done purp ose tm oth major px NEEDLE BIOPSY LIVER ADD-ON [facility] Start: 12-12-2023 Laps surg cholecyste ctomy w/cholangiography LAPARO CHOLECYSTECTOMY/GRAPH [facility] Start: 12-02-2023 End: 03-02-2024 CBC W Auto Differential panel - Blood CBC + DIFF Lab Routine Stroke-like symptoms Expected: 12/02/2023, Expires: 03/02/2024 [facility] Work Phone: Comment on above: Expected: 12/02/2023 , Expires: 03/02/2024 Start: 12-02-2023 End: 03-02-2024 Comprehensive metabolic 2000 panel - Serum or Plasma COMP METABOLIC PANEL Lab Routine Stroke-like symptoms Expected: 12/02/2023, Expires: 03/02/2024 [facility] Work Phone: Comment on above: Expected: 12/02/2023 , Expires: 03/02/2024 Start: 12-02-2023 End: 03-02-2024 Hemoglobin A1c in Blood HGB A1C Lab Routine Stroke-like symptoms Expected: 12/02/2023, Expires: 03/02/2024 [facility] Work Phone: Comment on above: Expected: 12/02/2023 , Expires: 03/02/2024 Start: 12-02-2023 End: 03-02-2024 Lipid 1996 panel - Serum or Plasma LIPID PANEL BASIC Lab Routine Stroke-like symptoms Expected: 12/02/2023, Expires: 03/02/2024 [facility] Work Phone: Comment on above: Expected: 12/02/2023 , Expires: 03/02/2024 Start: 11-25-2023 DIABETES SCREEN DIABETES SCREEN [facility] Start: 11-01-2023 [facility] Start: 10-30-2023 Blood chemistry [facility] Start: 10-29-2023 Blood chemistry [facility] Start: 10-28-2023 Blood chemistry [facility] Start: 10-27-2023 Blood chemistry [facility] Start: 10-26-2023 Blood chemistry [facility] Start: 10-25-2023 Blood chemistry [facility] Start: 10-24-2023 Blood chemistry [facility] Start: 10-23-2023 Patient discharge [facility] Start: 10-22-2023 Bleeding precautions [facility] Start: 10-22-2023 COVID-19 VACCINE (#1) COVID-19 VACCI NE (#1) [facility] Comment on above: Postponed from 11/17 (Declined at this time) Start: 10-22-2023 HEPATITIS B (1 of 3 - 3-dose series) HEPATITIS B (1 of 3 - 3-dose series) [facility] Comment on above: Postponed from 05/20 (Declined at this time) Start: 10-22-2023 Hepatitis B Vaccine (3 of 3 - 19+ 3-dose series) Hepatitis B Vaccine (3 of 3 - 19+ 3-dose series) [facility] Comment on above: Postponed from 01/02 (Declined at this time) Start: 10-22-2023 Application of intermittent pneumatic compression device [facility] Start: 10-22-2023 Following clinical pathway protocol [facility] Start: 10-22-2023 Aspiration precautions [facility] Start: 10-22-2023 Assessment of risk o f venous thromboembolism [facility] Start: 10-22-2023 Bedrest [facility] Start: 10-22-2023 Continuous pulse oximetry [facility] Start: 10-22-2023 Fall prevention [facility] Start: 10-22-2023 Inhalation therapy procedure [facility] Start: 10-22-2023 Insertion of cathete r into peripheral vein [facility] Start: 10-22-2023 Introduction of urin deshawn catheter [facility] Start: 10-22-2023 Measuring intake and output [facility] Start: 10-22-2023 Oxygen therapy [facility] Start: 10-22-2023 Patient referral to dietitian [facility] Start: 10-22-2023 Providing care accor ding to standard [facility] Start: 10-22-2023 Referral to occupati onal therapist [facility] Start: 10-22-2023 Referral to service [facility] Start: 10-22-2023 Speech therapy assessment [facility] Start: 10-22-2023 Telemedicine consult ation with patient [facility] Start: 10-22-2023 Vital signs measurements [facility] Start: 10-22-2023 [facility] Start: 10-22-2023 Bleeding precautions [facility] Start: 10-21-2023 Troponin I measurement [facility] Start: 10-21-2023 Verification routine [facility] Start: 10-21-2023 Admission procedure [facility] Start: 10-21-2023 Hospital admission, emergency, from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 for 90-150g - Will order zepbound- PA needed. If not approved will do naltrexone/buproprion possible metformin (first if indicated then add other two) Interval History PT specifies the following items as new or significant updates since the last appointment: -started Zepbound 4 weeks ago and continued with buproprion/naltrexone- happy with results of zepbound as she was up to 216lbs due to stress eating. -was recently admitted with ?? Seizure like activity but EEG was reassuring - Reports a positive response to Zepbound, noting significant appetite suppression and a return to previous weight of 205 lbs. - Denies any side effects from Zepbound, such as constipation, nausea, vomiting, or diarrhea. - Currently taking naltrexone and bupropion, which she feels are beneficial for emotional eating and anxiety/depression management. - Reports improved dietary habits, including increased consumption of healthy snacks like celery, carrots, and hummus, and a reduction in carbohydrate intake at breakfast. - Maintains adequate hydration and continues to take a vitamin D supplement. - Currently under the care of a psychiatrist and has a scheduled appointment with a psychologist on the . - Expresses indecisiveness and difficulty making decisions, which she attributes to her mental health conditions. - Reports excessive sleep, which she believes is related to heightened depression. - Experiencing significant stress due to family dynamics, particularly involving her daughter and parents, which she believes has exacerbated her symptoms and contributed to weight gain and health decline. - Recently diagnosed with non-epileptic seizures and is under the care of a psychiatrist. - Reports episodes of facial droop and lightheadedness, which she believes are related to her seizure disorder. - Recently hospitalized for three days for seizure monitoring, during which no abnormal brain activity was detected. Weight loss since last vist: 9 lb Total weight lost: 44 lbs - Last Wt 06/12/25 : 92.987 kg (205 lb) got up to 216lb- zepbound started 4 weeks ago 01/14/25 : 94.3 kg (208 lb) wellbutrin/naltrexone added February 2025 09/28/24 : 91.6 kg (202 lb) phentermine stopped- syncopal episodes 06/25/24 : 102.9 kg (227 lb) 05/28/24 : 106.6 kg (235 lb) 04/10/24 : 112.9 kg (249 lb) Date: 04/10/2024 249 lb BMI: 47.05 5% weight loss = 236 lbs, 10% weight loss = 224 lbs Adjusted ideal body weight: 67.3 kg (148 lb 4.7 oz) Anti-obesity medications: Benefit:makes her stop thinking about food, doesn't feel hungry Adverse effects: none Wellbutrin/Naltrexone Anti-obesity medications: Topiramate. 50 mg bid Benefit:was started for migraines Adverse effects: none AOM Medications: Topiramate by Neurologist Weight promoting medications: Effexor 75mg changed to Desvenlafaxine Previous Diet (initial appointment): Awake - 7:30 B - coffee azerbaijani sweet cream, apple juice (8oz) [place] wrap taco velásquez, watermelon juice (8oz) , oatmeal (packet), toast, blueberries , turkey sausage , hash browns S - fruit L - chipolte bowl chicken w/ guac, apple/pecan salad w/ chicken , chicken wrap, almonds, pretzels,pizza, S - halo oranges D - tilapia, brown rice spag, carrots, ludwin, garlic bread , beats, beans, cucumbers, veggie pizza slices, cheesy bread , cream cheese ragoons S - peach cobbler blizzard sometimes , sweets Fluids: coffee juice, stopped soda, 100 oz water per day Bedtime - 11:30pm Quality of diet: 24hr recall suggests healthy diet. Characterization of diet:Unstructured, unhealthy snacking, and increased consumption of sugar sweetened beverages. Criminal Analyst of impaired eating habits:lack of satiety, emotion, and does go back for seconds- more protein- meat- loves red meat but can't eat after gallbladder Eating Disorder no Cravings: savo (more content not included)... [facility] 06-05-2025 Note HNO ID: [id number] Author: LISY FERMIN LISW Service: ? Author Type: Creative Director Type: Progress Notes Filed: 06/06/2025 09:52 Note Text: FNS PMC ABSTRACT Demographics Name: Hector Leon [address]: [address] [place], [place] [id number] Identifying gender: Female Preference for visit type: Virtual Visit Requested Open to group: No Description/frequency of non-epileptic seizures: Type 1: Left face drooping - Onset: 09/2023 - Aura: No clear warning - Description: Patient may not notice it necessarily- family seems to see it before she notices it. They will tell her to get a drink and it seems to improve her symptoms. Feels like the inside of her left cheek is thick and her mouth gets really dry and she has trouble talking. Her left eye then feels like it is being pulled downwards/it is heavy underneath. Her daughter with POTS notes that the patient tends to have an episode shortly after she (her daughter) feels her POTS symptoms. Has progressed into loss of consciousness maybe 3 times. No witnessed abnormal movements. No tongue bite or incontinence. - Duration: 2-15 minutes - Post- Ictal: Generally feels drained and fatigued daily. Do not feel like she used to prior to August of 2023. - Frequency: 1-5x per day Concurrent epileptic seizures: No Chandu Seizure Severity Scale Score (range: 0 - 100) 42.5 Cognitive Function: Education: High School Diploma Concerns regarding cognitive functioning: No Psychiatric history: Diagnoses: Depression PTSD Anxiety Well controlled: No FATOU-7 Total Score: 21 (05/13/2025 3:48 PM) (0-4) minimal anxiety, (5-9) mild anxiety, (10-14) moderate anxiety, (15-21) severe anxiety PHQ-9 Score: 0 (05/13/2025 3:48 PM) (0-4) minimal depression, (5-9) mild depression, (10-14) moderate depression, (15-19) moderately severe depression, (20-27) severe depression Trauma history: Yes, childhood trauma Sometimes things happen to people that are unusually or especially frightening, horrible, or traumatic. Have you ever experienced this kind of event? Yes In the past month, have you... Had nightmares about the events or thought about the events when you did not want to? Yes Tried hard not to think about the events or went out of your way to avoid situations that reminded you of the events? Yes Been constantly on guard, watchful, or easily startled? Yes [place] numb or detached from people, activities, or your surroundings? No [place] guilty or unable to stop blaming yourself or others for the events or any problems the events may have caused? Yes Current S/HI: No Current therapist: No Current psychiatrist: Yes, If yes describe:follows locally Active substance use: No If yes, type and history of treatment: The patient has never had any substance abuse treatment Other stressors/barriers identified: None Engagement: Good Myc Tas-20 Total Score (range: 20 - 100) 62 (Alexithymia) Myc Tas-20 Difficulty Describing Feelings Subscore (range: 5 - 25) 17 Myc Tas-20 Difficulty Indentify Feelings Subscore (range: 7 - 35) 24 Myc Tas-20 Externally-Oriented Thinking Subscore (range: 8 - 40) 21 Other identifying characteristics: None Referrals provided: Local psychotherapy options given and Local psychotherapy (trauma focus) options given Assessment completed by: KARAN Mason Recommendations: Establish with local provider for trauma therapy and engage in treatment program at [facility]. [facility] 06-05-2025 Note HNO ID: [id number] Author: FAHAD GAITAN MD Service: Neurology Adult Epilepsy Author Type: Physician Type: Progress Notes Filed: 06/05/2025 09:54 Note Text: NEUROLOGY EPILEPSY MONITORING UNIT (EMU) PROGRESS NOTE SERVICE DATE: 06/05/2025 SERVICE TIME: 9:47 AM Subjective She had several events overnight. She is currently unhooked from EEG for MRI scan. 6E at 1409 on 06/04 - slight left facial droop, pt felt the left side of her face get thick, and felt like her heart was racing 7E at 1524 on 06/04 - will need to review EEG 8E at 1623 on 06/04 - will need to review EEG 9E at 0435 on 06/05 - Left facial droop with thickened sensation to inside of left cheek, Patient felt the left inside of cheek thicken and left facial pull She denies staring episodes overnight, but also states that she is unaware when these occur. New Problems Since Admission: None Home Anti-Epileptic Drugs: Topiramate 75 mg BID Anti Epileptic Drugs Here: Topiramate 50 mg BID Objective 06/04/25 2339 06/05/25 0434 06/05/25 0452 06/05/25 0835 BP: 93/51 126/79 105/70 Pulse: 77 78 76 Resp: 16 16 16 Temp: 36.7 ?C (98.1 ?F) 36.5 ?C (97.7 ?F) 36.9 ?C (98.4 ?F) TempSrc: Oral Oral Oral SpO2: 96% 98% 94% Weight: 95.6 kg (210 lb 12.2 oz) Height: EKG, Telemetry, EEG, Monitors AND Alarms are on: Yes Written order: Remains standing. Seizure Detection Software on: Yes boat washer has been Notified: Yes php software engineer has been Notified: Yes EXAM: Mental Status: Alert and oriented with fluent speech. Cranial Nerves: Extraocular muscles intact. Face symmetric. Motor: Moves all extremities equally. Sensation: Intact to light touch. Exam otherwise unchanged. DATA: Latest Ref Rng 06/02/2025 WBC 3.70 - 11.00 k/uL 5.10 RBC 3.90 - 5.20 m/uL 4.70 Hemoglobin 11.5 - 15.5 g/dL 14.4 Hematocrit 36.0 - 46.0 % 40.8 MCV 80.0 - 100.0 fL 86.8 MCH 26.0 - 34.0 pg 30.6 MCHC 30.5 - 36.0 g/dL 35.3 RDW-CV 11.5 - 15.0 % 12.0 Platelet Count 150 - 400 k/uL 234 MPV 9.0 - 12.7 fL 9.5 Neut% % 40.6 Abs Neut (ANC) 1.45 - 7.50 k/uL 2.07 Lymph% % 47.6 Abs Lymph 1.00 - 4.00 k/uL 2.43 Reno% % 9.6 Abs Reno <0.87 k/uL 0.49 Eosin% % 1.4 Abs Eosin <0.46 k/uL 0.07 Baso% % 0.6 Abs Baso <0.11 k/uL 0.03 Immature Gran % % 0.2 IMMATURE GRANS (ABS) <0.10 k/uL <0.03 NRBC /100 WBC 0.0 Absolute nRBC <0.01 k/uL <0.01 DTYPE Auto Protein, Total 6.3 - 8.0 g/dL 6.7 Albumin 3.9 - 4.9 g/dL 4.0 Calcium 8.5 - 10.2 mg/dL 9.2 Bilirubin, Total 0.2 - 1.3 mg/dL 0.3 Alkaline Phosphatase 34 - 123 U/L 85 AST 13 - 35 U/L 18 ALT 7 - 38 U/L 14 Glucose 74 - 99 mg/dL 75 BUN 7 - 21 mg/dL 17 Creatinine 0.58 - 0.96 mg/dL 0.93 Sodium 136 - 144 mmol/L 139 Potassium 3.7 - 5.1 mmol/L 3.6 (L) Chloride 98 - 107 mmol/L 106 CO2 22 - 30 mmol/L 22 Anion Gap 8 - 15 mmol/L 11 eGFR >=60 mL/min/1.73m? 76 Amphetamines, Urine Negative Negative Barbiturates, Urine Negative Negative Benzodiazepines, Urine Negative Negative Cannabinoids, Urine Negative Negative Cocaine, Urine Negative Negative Ethanol, Urine <11 mg/dL <11 Fentanyl, Urine Negative Negative Opiates, Urine Negative Negative Oxycodone, Urine Negative Negative Phencyclidine, Urine Negative Negative Magnesium 1.7 - 2.3 mg/dL 2.3 Phosphorus 2.7 - 4.8 mg/dL 3.5 TSH 0.270 - 4.200 mIU/L 2.060 HCG Qualitative, Urine Negative Negative Diagnostic tests reviewed for today's visit: Most recent labs and imaging results. Assessment AND Plan Transient neurological symptoms Present on Admission: Yes This is a 50 year old left handed female, patient of Dr. Webster, who is admitted to EMU for diagnostic clarification of episodic neurologic symptoms with suspected PNES/FND. Her first type of episode started in 09/2023 following a diagnosis of left chest wall shingles the month prior. These are characterized predominantly by worsening of left facial drooping, trouble speaking, and left eye heaviness though she has progressed to loss of awareness at times, with multiple episodes daily. The second type of episode started this year, occurs less frequently, and consists of staring episodes with multiple symptoms (muffled hearing, tunnel vision, sweaty, clammy). There are no clear significant risk factors for epilepsy, and prior EEG and MRI have been unremarkable. She is on TPM but for management of chronic headache and not epilepsy. 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 There may be a component of dysautonomia/POTS that is playing a role in her experience of symptoms as well. Plan: - Admit to EMU for video EEG monitoring Topiramate 75mg BID --> 50mg BID (10/6PM) - Confirm EEG correlate with symptoms prior to attempting to treat with benzodiazepines - Rescue with versed 4mg IV or 5mg IM for seizures confirmed on EEG > 3 minutes or > 3 se (more content not included)... [facility] 06-05-2025 Note HNO ID: [id number] Author: HOWARD PANTOJA ? Service: Pharmacy Author Type: Pasteurizing Supervisor Type: Plan of Care Filed: 06/05/2025 09:04 Note Text: Reason for test claim: Epilepsy If patient is being discharged with Nayzilam or Valtoco Please send a script and Notify the MAC 24-48 hours prior to discharge to complete Prior Authorization. Medication: Nayzilam 5 mg/spray Qty: 2 Day supply: 1 Cost on Insurance:NA, Requires Prior Authorization? Yes Reason for PA: Non-Formulary Cost of medication on [facility] discount card: $703.78 Voucher/Coupon card: $20 coupon for 30-day savings card (commercially insured patients only) Medication: Valtoco 20 mg nasal spray Qty: 2 Day supply: 1 Cost on Insurance:NA, Requires Prior Authorization? Yes Reason for PA: Non-Formulary Cost of medication on [facility] discount card: $771.96 Voucher/Coupon card: $20 coupon for 30-day savings card (commercially insured patients only) Total number of tian checks: 1 If prior authorization is required, please send medication to designated pharmacy 24-48 hours in advance. Any questions, please reach out the medication access nurse. Thank you. (Prices may vary at different pharmacy locations, this is the cost at [facility] on June 05, 2025 ). [facility] 06-05-2025 Note HNO ID: [id number] Author: HOWARD PANTOJA ? Service: Pharmacy Author Type: Pasteurizing Supervisor Type: Plan of Care Filed: 06/05/2025 09:02 Note Text: Insurance investigation completed Patient has active prescription insurance: Yes - Patient's insurance is in-network with [facility] Insurance loaded into [place]: Yes Test claim was completed to verify insurance is active: Successful Is patient eligible for [facility]? No Any questions, please reach out to your medication access nurse. [facility] 06-04-2025 Note HNO ID: [id number] Author: MARIELLA ROSAS PA-C Service: Neurology Adult Epilepsy Author Type: Physician Image Processing Engineer Type: Progress Notes Filed: 06/04/2025 12:35 Note Text: Documentation Query Please specify a diagnosis associated with the Clinical Indicators for this patient Obesity, class 2 Please clarify the Present on Admission status if the diagnosis is appropriate: Present on Admission Potassium: (06/02) 3.6 (06/03) 3.6 Orders: (06/02) CMP once; CMP routine morning draw Treatment: (06/03) potassium chloride ER 20 mEq tab oral once Please clarify the clinically significant diagnosis associated with the clinical indicators for this patient: Hypokalemia supported by: Continued Lab Monitoring and Oral Supplement of potassium chloride ER 20 mEq tab oral once Please clarify the Present on Admission status if the diagnosis is appropriate: Present on Admission, now resolved 06/02/2025 Summarization of episode note - [facility] ... Active problems: ... major depressive disorder, recurrent, moderate ... 06/04/25 Neurology Adult Epilepsy PA progress notes: ... history of ... depression ... Depression Present on Admission: Yes ... Continue home buspar 7.5mg BID, buproprion 150mg BID, desvenlafaxine ER 100mg daily, and Atarax 12.5mg BID ... Orders: (06/02) bupropion SR 150 mg tab oral 2 times daily; desvenlafaxine ER 100 mg tab oral daily; hydroxyzine HCl 12. 5 mg tab oral 2 times daily Please specify depression: Major depressive disorder, recurrent: unspecified Please clarify the Present on Admission status if the diagnosis is appropriate: Present on Admission This document will become part of the patient's medical record. [facility] 06-04-2025 Note HNO ID: [id number] Author: FAHAD GAITAN MD Service: Neurology Adult Epilepsy Author Type: Physician Type: Progress Notes Filed: 06/04/2025 10:31 Note Text: NEUROLOGY EPILEPSY MONITORING UNIT (EMU) PROGRESS NOTE SERVICE DATE: 06/04/2025 SERVICE TIME: 10:25 AM Subjective She reported okay sleep overnight. She had two typical events: 3E at 1200 on 06/03 - subtle twitching of L eyelids,L side facial droop 4E clx2 at 1815 on 06/03 - slight left facial droop after getting back to bed, Pt.stated she felt her pulse rate racing after going to the bathroom New Problems Since Admission: None Home Anti-Epileptic Drugs: Topiramate 75 mg BID Anti Epileptic Drugs Here: Topiramate 50 mg BID Objective 06/03/25 2352 06/04/25 0318 06/04/25 03206/04/25726 BP: 101/63 93/65 110/66 Pulse: 79 82 90 Resp: 17 15 16 Temp: 36.6 ?C (97.9 ?F) 36.9 ?C (98.4 ?F) 36.7 ?C (98.1 ?F) TempSrc: Oral Oral Oral SpO2: 95% 96% 95% Weight: 96.8 kg (213 lb 6.5 oz) Height: EKG, Telemetry, EEG, Monitors AND Alarms are on: Yes Written order: Remains standing. Seizure Detection Software on: Yes boat washer has been Notified: Yes php software engineer has been Notified: Yes EXAM: Mental Status: Alert and oriented with fluent speech. Cranial Nerves: Extraocular muscles intact. Face symmetric. Motor: Moves all extremities equally. Sensation: Intact to light touch. Exam otherwise unchanged. DATA: Latest Ref Rng 06/02/2025 WBC 3.70 - 11.00 k/uL 5.10 RBC 3.90 - 5.20 m/uL 4.70 Hemoglobin 11.5 - 15.5 g/dL 14.4 Hematocrit 36.0 - 46.0 % 40.8 MCV 80.0 - 100.0 fL 86.8 MCH 26.0 - 34.0 pg 30.6 MCHC 30.5 - 36.0 g/dL 35.3 RDW-CV 11.5 - 15.0 % 12.0 Platelet Count 150 - 400 k/uL 234 MPV 9.0 - 12.7 fL 9.5 Neut% % 40.6 Abs Neut (ANC) 1.45 - 7.50 k/uL 2.07 Lymph% % 47.6 Abs Lymph 1.00 - 4.00 k/uL 2.43 Reno% % 9.6 Abs Reno <0.87 k/uL 0.49 Eosin% % 1.4 Abs Eosin <0.46 k/uL 0.07 Baso% % 0.6 Abs Baso <0.11 k/uL 0.03 Immature Gran % % 0.2 IMMATURE GRANS (ABS) <0.10 k/uL <0.03 NRBC /100 WBC 0.0 Absolute nRBC <0.01 k/uL <0.01 DTYPE Auto Protein, Total 6.3 - 8.0 g/dL 6.7 Albumin 3.9 - 4.9 g/dL 4.0 Calcium 8.5 - 10.2 mg/dL 9.2 Bilirubin, Total 0.2 - 1.3 mg/dL 0.3 Alkaline Phosphatase 34 - 123 U/L 85 AST 13 - 35 U/L 18 ALT 7 - 38 U/L 14 Glucose 74 - 99 mg/dL 75 BUN 7 - 21 mg/dL 17 Creatinine 0.58 - 0.96 mg/dL 0.93 Sodium 136 - 144 mmol/L 139 Potassium 3.7 - 5.1 mmol/L 3.6 (L) Chloride 98 - 107 mmol/L 106 CO2 22 - 30 mmol/L 22 Anion Gap 8 - 15 mmol/L 11 eGFR >=60 mL/min/1.73m? 76 Amphetamines, Urine Negative Negative Barbiturates, Urine Negative Negative Benzodiazepines, Urine Negative Negative Cannabinoids, Urine Negative Negative Cocaine, Urine Negative Negative Ethanol, Urine <11 mg/dL <11 Fentanyl, Urine Negative Negative Opiates, Urine Negative Negative Oxycodone, Urine Negative Negative Phencyclidine, Urine Negative Negative Magnesium 1.7 - 2.3 mg/dL 2.3 Phosphorus 2.7 - 4.8 mg/dL 3.5 TSH 0.270 - 4.200 mIU/L 2.060 HCG Qualitative, Urine Negative Negative Diagnostic tests reviewed for today's visit: Most recent labs and imaging results. Assessment AND Plan Transient neurological symptoms Present on Admission: Yes This is a 50 year old left handed female, patient of Dr. Webster, who is admitted to EMU for diagnostic clarification of episodic neurologic symptoms with suspected PNES/FND. Her first type of episode started in 09/2023 following a diagnosis of left chest wall shingles the month prior. These are characterized predominantly by worsening of left facial drooping, trouble speaking, and left eye heaviness though she has progressed to loss of awareness at times, with multiple episodes daily. The second type of episode started this year, occurs less frequently, and consists of staring episodes with multiple symptoms (muffled hearing, tunnel vision, sweaty, clammy). There are no clear significant risk factors for epilepsy, and prior EEG and MRI have been unremarkable. She is on TPM but for management of chronic headache and not epilepsy. 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 There may be a component of dysautonomia/POTS that is playing a role in her experience of symptoms as well. Plan: - Admit to EMU for video EEG monitoring Topiramate 75mg BID --> 50mg BID (10/6PM) - Confirm EEG correlate with symptoms prior to attempting to treat with benzodiazepines - Rescue with versed 4mg IV or 5mg IM for seizures confirmed on EEG > 3 minutes or > 3 seizures in 8 hours - Seizure and fall precautions - Continuous pulse ox and telemetry Migraine Present on Admission: Yes - Continue home topiramate 75mg BID --> 50mg BID (10/6 PM) Generalized anxiety disorder Present on Admission: Yes Depression Present on Ad (more content not included)... [facility] 06-03-2025 Note HNO ID: [id number] Author: FAHAD GAITAN MD Service: Neurology Adult Epilepsy Author Type: Physician Type: Progress Notes Filed: 06/03/2025 09:53 Note Text: NEUROLOGY EPILEPSY MONITORING UNIT (EMU) PROGRESS NOTE SERVICE DATE: 06/03/2025 SERVICE TIME: 7:26 AM Subjective Reports difficulty sleeping last night due to all the wires and interruptions overnight. Patient experienced two typical events overnight. 1E on 06/02 @1326 - dizziness, typical facial droop episode triggered by photic, felt pull of muscles on L face and weakness in L side, felt shaking of L leg 2E on 06/02 @1902 - dizziness, typical facial droop episode triggered by photic, felt pull of muscles on L face and weakness in L side, felt shaking of L leg New Problems Since Admission: None Home Anti-Epileptic Drugs: Topiramate 75 mg BID Anti Epileptic Drugs Here: Topiramate 75 mg BID Objective 06/02/25 1534 06/02/25 2038 06/02/25 2354 06/03/25 0427 BP: 129/74 117/68 115/77 106/69 Pulse: 83 81 83 82 Resp: 18 16 16 16 Temp: 36.7 ?C (98.1 ?F) 36.8 ?C (98.2 ?F) 36.6 ?C (97.9 ?F) 36.5 ?C (97.7 ?F) TempSrc: Oral Oral Oral Oral SpO2: 97% 96% 96% 93% Weight: Height: EKG, Telemetry, EEG, Monitors AND Alarms are on: Yes Written order: Remains standing. Seizure Detection Software on: Yes boat washer has been Notified: Yes php software engineer has been Notified: Yes EXAM: Mental Status: Alert and oriented to person, place and time. Able to follow 1 and 2 step commands. Cranial Nerves: Pupils equal and reactive to light, extraocular muscles intact. No nystagmus, face symmetric. Motor: Moves all extremities equally. Sensation: Intact to light touch. Coordination: No dysmetria Exam otherwise unchanged. DATA: Latest Ref Rng 06/02/2025 WBC 3.70 - 11.00 k/uL 5.10 RBC 3.90 - 5.20 m/uL 4.70 Hemoglobin 11.5 - 15.5 g/dL 14.4 Hematocrit 36.0 - 46.0 % 40.8 MCV 80.0 - 100.0 fL 86.8 MCH 26.0 - 34.0 pg 30.6 MCHC 30.5 - 36.0 g/dL 35.3 RDW-CV 11.5 - 15.0 % 12.0 Platelet Count 150 - 400 k/uL 234 MPV 9.0 - 12.7 fL 9.5 Neut% % 40.6 Abs Neut (ANC) 1.45 - 7.50 k/uL 2.07 Lymph% % 47.6 Abs Lymph 1.00 - 4.00 k/uL 2.43 Reno% % 9.6 Abs Ren[place] <0.87 k/uL 0.49 Eosin% % 1.4 Abs Eosin <0.46 k/uL 0.07 Baso% % 0.6 Abs Baso <0.11 k/uL 0.03 Immature Gran % % 0.2 IMMATURE GRANS (ABS) <0.10 k/uL <0.03 NRBC /100 WBC 0.0 Absolute nRBC <0.01 k/uL <0.01 DTYPE Auto Protein, Total 6.3 - 8.0 g/dL 6.7 Albumin 3.9 - 4.9 g/dL 4.0 Calcium 8.5 - 10.2 mg/dL 9.2 Bilirubin, Total 0.2 - 1.3 mg/dL 0.3 Alkaline Phosphatase 34 - 123 U/L 85 AST 13 - 35 U/L 18 ALT 7 - 38 U/L 14 Glucose 74 - 99 mg/dL 75 BUN 7 - 21 mg/dL 17 Creatinine 0.58 - 0.96 mg/dL 0.93 Sodium 136 - 144 mmol/L 139 Potassium 3.7 - 5.1 mmol/L 3.6 (L) Chloride 98 - 107 mmol/L 106 CO2 22 - 30 mmol/L 22 Anion Gap 8 - 15 mmol/L 11 eGFR >=60 mL/min/1.73m? 76 Amphetamines, Urine Negative Negative Barbiturates, Urine Negative Negative Benzodiazepines, Urine Negative Negative Cannabinoids, Urine Negative Negative Cocaine, Urine Negative Negative Ethanol, Urine <11 mg/dL <11 Fentanyl, Urine Negative Negative Opiates, Urine Negative Negative Oxycodone, Urine Negative Negative Phencyclidine, Urine Negative Negative Magnesium 1.7 - 2.3 mg/dL 2.3 Phosphorus 2.7 - 4.8 mg/dL 3.5 TSH 0.270 - 4.200 mIU/L 2.060 HCG Qualitative, Urine Negative Negative Diagnostic tests reviewed for today's visit: Most recent labs and imaging results. Assessment AND Plan Transient neurological symptoms Present on Admission: Yes This is a 50 year old left handed female, patient of Dr. Webster, who is admitted to EMU for diagnostic clarification of episodic neurologic symptoms with suspected PNES/FND. Her first type of episode started in 09/2023 following a diagnosis of left chest wall shingles the month prior. These are characterized predominantly by worsening of left facial drooping, trouble speaking, and left eye heaviness though she has progressed to loss of awareness at times, with multiple episodes daily. The second type of episode started this year, occurs less frequently, and consists of staring episodes with multiple symptoms (muffled hearing, tunnel vision, sweaty, clammy). There are no clear significant risk factors for epilepsy, and prior EEG and MRI have been unremarkable. She is on TPM but for management of chronic headache and not epilepsy. 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 There may be a component of dysautonomia/POTS that is playing a role in her experience of symptoms as well. Plan: - Admit to EMU for video EEG monitoring - Confirm EEG correlate with symptoms prior to attempting to treat with benzodiazepines - Rescue with versed 4mg IV or 5mg IM for seizures confirmed on EEG > 3 minutes or > 3 seiz (more content not included)... [facility] 05-16-2025 Note HNO ID: [id number] Author: BENTON ALLEN APRN.SECURITY SOLUTIONS ARCHITECT Service: ? Author Type: Nurse Practitioner Type: Progress Notes Filed: 05/17/2025 07:20 Note Text: [facility] Follow-Up VIRTUAL VISIT This is a virtual visit using [employer] Video Visit. It required patient-provider interaction for the medical decision making as documented below. I have communicated my name and active licensure. The patient's identity and physical location were verified at the time of this visit. Either the patient or their legal hospital sales representative has been informed of the risks and benefits of -- and alternatives to -- treatment through a remote evaluation and consents to proceed with the evaluation remotely. PMH: Cholecystitis, Crohn's disease, depression, eczema, esophageal reflux, fibromyalgia, FATOU, history of shingles, lichen sclerosus, morbid obesity, psoriasis, vitamin D insufficiency. Chart Review: 04/08/2025 - NeuromuscularBenton APRN.SECURITY SOLUTIONS ARCHITECT ASSESSMENT Hector Leon is a 49 year old with a PMH of Cholecystitis, Crohn's disease, depression, eczema, esophageal reflux, fibromyalgia, FATOU, history of shingles, lichen sclerosus, morbid obesity, psoriasis, vitamin D insufficiency who is here today for initial evaluation of POTS. She endorses symptoms including lightheadedness and tachycardia (HR 150 per pt) upon standing, occurring multiple times per day, that began in 09/2023 after shingles. Episodes often accompanied with blurred vision. She reports constant tinnitus, nonpulsatile. Triggers include posture changes, stress, temperature changes lasting ~10-15 minutes, relieved by sitting and/or lying down. She has endorsed multiple falls, last fall 2.5 weeks ago without hit to the head or LOC for this episode. She does report occasional paresthesias of BL hands and feet with associated discoloration of fingertips with temperature changes and lightheadedness episodes. Reported LOC episodes started around 09/2023 that can occur while in any position (while standing or seated). Last episode of LOC was a few days ago after a stressful situation with her daughter that occurred while in seated position. Prodrome symptoms of increased facial droop of the left side (constant state of left facial droop - chronic/not new - following local neurologist), eyes rolling around, muffled hearing, lightheadedness leading to blacked out vision. Episodes have lasted up to 6 minutes. Some witnessed episodes occurring with eyes open. No loss of B/B, mouth maceration, convulsions. Postictal state of confusion and exhaustion. EEG completed 01/30/2024 (she endorsed the same nature of symptoms at that time) WNL without concern for seizure activity. Given episodes occur while in seated position, there is a concern for cardiac etiology for which a engine monitor completed on 11/22/2024 did not reveal any arrhythmia, patient triggered event correlated with NSR. All imaging completed after onset of symptoms: MRI brain at [facility]SH completed 10/23/2023 unrevealing. MRA brain and MRA carotid at OSH completed 11/30/2023 unrevealing. Recent relevant labs unremarkable. Neurological examination reveals decreased nasolabial fold on left side with obvious asymmetry and left-sided facial droop which is chronic since 09/2023, mild hip flexion weakness. Orthostatic VS today reveals a 25 beat increase in HR upon standing that does not sustain. No orthostatic hypotension. Etiology of LOC episodes unclear at this time. Concern for seizures given blank stares, LOC while in seated position occasionally with eyes open, postictal state of confusion and exhaustion. Although EEG without seizure activity, I have consulted to epilepsy center for further evaluation given concerning features of LOC. Low suspicion of cardiac etiology at this time given engine monitor unrevealing without arrhythmia. Given nature of lightheadedness symptoms are orthostatic with VS today revealing 25 beat increase in HR upon standing, complete tilt table test for further review. Will consider completing QSART in the future given vague paresthesias and discoloration of distal limbs to assess for underlying possible autonomic neuropathy. Ordered CBC and vitamin B12 labs to rule out anemia and vitamin B12 deficiency as potential causes of lightheadedness. PLAN 1. Complete tilt table testing 2. Complete labs - CBC and Vitamin B12 3. Consult to epilepsy center given seizure like concerns 4. Follow up with me after testing Today May 14, 2025: EMU recommendations from neurology epilepsy Since last visit: - Things have been better since the cooler weather - Last few days worse with warmer days - lightheadedness with standing and weakness. - No LOC episodes since last visit Current management of orthostatic condition Diet: no restrictions, avoids dairy Exercise: no Water: 80 oz per day, and body armour (more content not included)... [facility] 05-13-2025 History of Present illness Narrative UNIVERSAL PROTOCOL / SAFETY CHECKLIST Procedure to be Performed: ANS WITH TILT Sign In: A Moment of CARE was completed. Appropriate PPE (Personal Protective Equipment) worn by all providers involved with the procedure. Patient/Surrogate Stated/Verified: Patient name, Date of , Relevant allergies, and The intended procedure Time Out: Relevant labs, photos, and/or imaging studies are not applicable. Intended patient and procedure match the source document(s) (e.g. consent, H&P, associated studies [imaging, pathology]) match the intended patient and procedure. Correct side/site is not applicable. Medications required for this procedure are not applicable. Sign Out: The post-procedure plan of care has been communicated to the patient or surrogate documented in this encounter [facility] 05-13-2025 Note HNO ID: [id number] Author: ?, ?, ? Service: ? Author Type: ? Type: Progress Notes Filed: 05/13/2025 12:42 Note Text: UNIVERSAL PROTOCOL / SAFETY CHECKLIST Procedure to be Performed: ANS WITH TILT Sign In: A Moment of CARE was completed. Appropriate PPE (Personal Protective Equipment) worn by all providers involved with the procedure. Patient/Surrogate Stated/Verified: Patient name, Date of , Relevant allergies, and The intended procedure Time Out: Relevant labs, photos, and/or imaging studies are not applicable. Intended patient and procedure match the source document(s) (e.g. consent, HANDP, associated studies [imaging, pathology]) match the intended patient and procedure. Correct side/site is not applicable. Medications required for this procedure are not applicable. Sign Out: The post-procedure plan of care has been communicated to the patient or surrogate [facility] 04-29-2025 History and physical note I returned Ms. Leon's call. She had had a tilt table test at [facility] which had been indeterminate. It seems they therefore want to stop as many of her medications as possible and repeat it. I explained to Ms. Leon that there had been a question of seizures, but as far as I could tell, she did not have seizures, but did have migraine with aura (not genetic hemiplegic migraine, though). As far as I could tell is the lama proviso here. No amount of EEG can exclude seizure disorder; it can diagnose seizure disorder, but if an ictus does not occur during recording, and if there are no interictal discharges, one cannot be sure. The longer ones cumulative EEG's are without finding traces of epilepsy, the more convinced one becomes of its absence - but you just cannot be sure, Since I am treating her with topiramate for migraine (not for seizures), I anticipate that she might suffer headaches tapering it off (which would be wiser than stopping cold turkey, as I had had concern in the past for seizures). I suggested she have the physician who is interested in a tilt table test call me on my [facility] mobile phone. Otherwise, she can cut back on her topiramate to 50 mg every day for 3 days, then stop entirely 5 days before the tilt table test. (Of note, she is on a 'migraine preventive dose' - half to a third of the usually antiepileptic dose). I advised she make sure she has ibuprofen on hand should she get a headache. She should restart the topiramate the evening after her tilt table test. Ms. Leon made me aware that she is going to have an EMU recording ordered by neurologist Dr. Carol Ann Webster. Review of his note suggests to me that he is not convinced of epilepsy, but wants to take excluding it one step fuither. Abiodun Li MD [facility] 04-29-2025 History and physical note I returned Ms. Leon's call. She had had a tilt table test at [facility] which had been indeterminate. It seems they therefore want to stop as many of her medications as possible and repeat it. I explained to Ms. Leon that there had been a question of seizures, but as far as I could tell, she did not have seizures, but did have migraine with aura (not genetic hemiplegic migraine, though). As far as I could tell is the lama proviso here. No amount of EEG can exclude seizure disorder; it can diagnose seizure disorder, but if an ictus does not occur during recording, and if there are no interictal discharges, one cannot be sure. The longer ones cumulative EEG's are without finding traces of epilepsy, the more convinced one becomes of its absence - but you just cannot be sure, Since I am treating her with topiramate for migraine (not for seizures), I anticipate that she might suffer headaches tapering it off (which would be wiser than stopping cold turkey, as I had had concern in the past for seizures). I suggested she have the physician who is interested in a tilt table test call me on my [facility] mobile phone. Otherwise, she can cut back on her topiramate to 50 mg every day for 3 days, then stop entirely 5 days before the tilt table test. (Of note, she is on a 'migraine preventive dose' - half to a third of the usually antiepileptic dose). I advised she make sure she has ibuprofen on hand should she get a headache. She should restart the topiramate the evening after her tilt table test. Ms. Leon made me aware that she is going to have an EMU recording ordered by neurologist Dr. Carol Ann Webster. Review of his note suggests to me that he is not convinced of epilepsy, but wants to take excluding it one step fuither. Abiodun Li MD documented in this encounter [facility] 04-25-2025 Telephone encounter Note Patient notified. Nadia Farrar RN [facility] 04-25-2025 Miscellaneous Notes Patient notified. Nadia Farrra RN I would try to wean down off wellbutrin- go to once per day then every other day for a few days before stopping as she may feel terrible if she stops suddenly. The naltrexone she can stop. She can resume at normal dose then when done with test. Patient is having a tilt table test done on 05/13/25. She needs to be off of all her medications for 5 days prior. Patient asking if she needs to wean herself off the medications prescribed by DM. Wellbutrin and Naltrexone appear to be the two medication. Patient was unsure. Nadia Farrar RN documented in this encounter [facility] 04-25-2025 Telephone encounter Note I would try to wean down off wellbutrin- go to once per day then every other day for a few days before stopping as she may feel terrible if she stops suddenly. The naltrexone she can stop. She can resume at normal dose then when done with test. [facility] 04-25-2025 Telephone encounter Note Patient is having a tilt table test done on 05/13/25. She needs to be off of all her medications for 5 days prior. Patient asking if she needs to wean herself off the medications prescribed by DM. Wellbutrin and Naltrexone appear to be the two medication. Patient was unsure. Nadia Farrar, MELANIA [facility] 04-23-2025 Telephone encounter Note Next wt management f/u is 05/07/25 [facility] 04-23-2025 Miscellaneous Notes Next wt management f/u is 05/07/25 Prescription Refill Information The patient has been identified by name and date of : Yes Caregiver verified no other encounters exist for this prescription request: Yes Caregiver confirmed with patient/requestor that no other refills are due, in the near future, with this provider at this time: Yes The last office visit in the department: 01-14-25 Does the patient have a future office visit with this provider/department: Yes Requested Prescriptions Pending Prescriptions Disp Refills naltrexone 50 mg tablet 30 tablet 2 Sig: Take 1 tablet by mouth once daily. Ashlyn Rashid April 23, 2025 8:51 AM documented in this encounter [facility] 04-23-2025 Telephone encounter Note Prescription Refill Information The patient has been identified by name and date of : Yes Caregiver verified no other encounters exist for this prescription request: Yes Caregiver confirmed with patient/requestor that no other refills are due, in the near future, with this provider at this time: Yes The last office visit in the department: 01-14-25 Does the patient have a future office visit with this provider/department: Yes Requested Prescriptions Pending Prescriptions Disp Refills naltrexone 50 mg tablet 30 tablet 2 Sig: Take 1 tablet by mouth once daily. Ashlyn Rashid April 23, 2025 8:51 AM [facility] 04-15-2025 Note HNO ID: [id number] Author: CAROL ANN WEBSTER MD Service: ? Author Type: Physician Type: Progress Notes Filed: 04/15/2025 12:09 Note Text: Please route this encounter to the EMU Scheduling Pool (P EMU) or PMU Scheduling Pool (P PMU) through LOS AND Follow up PHASE 1.0 AND 1.5 ORDER SYNOPSIS Patient: Hector Leon ([id number]) Best contact number: [phone] Insurance: Payor: [facility] / Plan: [facility] CHOICE PLUS / Product Type: HMO / Scheduling Team: Please call for adult patients: EMU coordinator ([phone]) [place] Coordinator ([phone]) PMU coordinator([phone]) Fish Peddler ([phone]) Please call for pediatric patients: PMU coordinator ([phone]) [place] Coordinator ([phone]) EMU coordinator ([phone]) Fish Peddler ([phone]) 04/15/2025 -- Admission Type EMU Adult Number of Days requested 3 Location [place] Admit Priority Routine 04/15/2025 PURPOSE Patient Being Considered for Epilepsy Surgery? No VEEG recommended to assess seizure burden, address new AND concerning syymptom-sign complex, and/or clarify syndromic epilepsy diagnosis? Yes 04/15/2025 -- Sphenoidal monitoring No Electrode placement Standard Appointments and Tests EPIL EEG LEAD PLACEMENT EPIL VEEG ADMIT TO EMU/PMU Consultations None Please route this encounter to the EMU Scheduling pool (P EMU) or PMU Scheduling pool (P PMU) through LOS AND Follow up Scheduling coordinators: For all VNS patients being scheduled for CARROL, please schedule VNS off/on office visits. [facility] 04-15-2025 History of Present illness Narrative Please route this encounter to the EMU Scheduling Pool (P EMU) or PMU Scheduling Pool (P PMU) through LOS & Follow up PHASE 1.0 AND 1.5 ORDER SYNOPSIS Patient: Hector Leon ([id number]) Best contact number: [phone] Insurance: Payor: [employer] / Plan: [facility] U[facility] CHOICE PLUS / Product Type: HMO / Scheduling Team: Please call for adult patients: EMU coordinator ([phone]) [place] Coordinator ([phone]) PMU coordinator([phone]) Fish Peddler ([phone]) Please call for pediatric patients: PMU coordinator ([phone]) [place] Coordinator ([phone]) EMU coordinator ([phone]) Fish Peddler ([phone]) 04/15/2025 -- Admission Type EMU Adult Number of Days requested 3 Location [facility] Admit Priority Routine 04/15/2025 PURPOSE Patient Being Considered for Epilepsy Surgery? No VEEG recommended to assess seizure burden, address new & concerning syymptom-sign complex, and/or clarify syndromic epilepsy diagnosis? Yes 04/15/2025 -- Sphenoidal monitoring No Electrode placement Standard Appointments and Tests EPIL EEG LEAD PLACEMENT EPIL VEEG ADMIT TO EMU/PMU Consultations None Please route this encounter to the EMU Scheduling pool (P EMU) or PMU Scheduling pool (P PMU) through LOS & Follow up Scheduling coordinators: For all VNS patients being scheduled for CARROL, please schedule VNS off/on office visits. documented in this encounter [facility] 04-15-2025 Instructions Carol Ann Webster MD - 04/15/2025 12:00 PM EDT I suspect that at least some proportion of your symptoms are related to nonepileptic seizures/functional neurologic disorder. In order to help clarify this, I would like to bring you into the Epilepsy Monitoring Unit after your tilt table test. If we confirm the presence of nonepileptic seizures, we can get you set up with the appropriate treatment. Similarly, if we find evidence of epilepsy (of which I am less suspicious), then we can start the correct treatment as well. Please try and obtain your MRI from 2023 that was done in [place]. I would like to see the images to help decide if we need more imaging and if so, so that we can compare any new images to the prior image. Agree with getting your tilt table test done. Continue to follow up with Dr. Li for management of your headaches and ongoing coordination of care. SEIZURE PRECUATIONS Please continue to practice seizure precautions and first aid. -Please do not climb to high places, such as rooftops, up trees or mountain climbing. -When near water, you should be supervised by an adult or person who is aware of risk of seizures, for example during tub baths, swimming, boating or fishing. -A helmet should be worn when riding a bike. Driving and Transportation Avoid driving unless your seizures are well controlled and/or you have permission to drive from your state's Department of Motor Vehicles (DMV). Each state has different laws. Please refer to the following link on the Epilepsy [employer] of [place]'s website for more information: http://www.epilepsyfoundation.org/ answerplace/Social/driving/driving u.cfm If you ride a bicycle, wear a helmet and any other necessary protective gear. When taking public transportation like the bus or subway, stay clear of the platform edge. First Aid for a grand mal seizure: -Remain calm and do not panic, call for assistance if needed. -Lower the person safely to the ground and loosen any tight clothing. -Place the person in a side-lying position so any saliva or vomit will easily drain out of the mouth. Actively seizing people are at a increased risk of choking on their saliva or vomit. Do not put any objects such as a tongue depressor or fingers into the mouth. Protect the persons head from injury while they are on their side. -Time the seizure from start to finish so you know how long it lasted (most grand mal seizures are no more than 1 or 2 minutes long). If the seizure is continuing longer than 5 minutes, call the ambulance at 911 for transportation to the nearest Emergency Room. -After a grand mal seizure, people are very sleepy and tired for several minutes or even a couple of hours. They may also complain of headache, nausea and may vomit. Please remember: -Call your doctor if you feel that the severity or number of seizures has changed from baseline. -If you have several grand mal seizures without waking up in-between, please notify your doctor. Seizure safety during sleep: -Always take anti-epileptic medications as prescribed by your doctor. -Objects near the bed may cause injury if someone has a seizure is prone to falling out of bed. Move heavy furniture, floor lamps, night stands and other dangerous objects away from the bed. -Mattresses and pillows should be firm and not soft. All stuffed animals, toys and other objects should be removed from the bed. Blankets can be layered but should be thin, down comforters may be too soft. -Keep the bed as low to the ground as possible. Some patients with night time seizures may sleep with their mattress on the floor. Others may pad the floor with mats (such as exercise mats used in workout facilities) to pad the floor. -During sleep, keep the bedroom door cracked open so someone can hear if you are having a seizure. Never lock the bedroom door. Some people choose to use baby monitors to observe for seizures at night. -We ask the you keep a record of the seizures you or your child is having. Please do this in the way that works the best for you. We would like to know the number of seizures per day including the date of the seizures, the length of time the seizure lasts, and the intensity of the seizure. If this is a different type of seizure than what you or your child normally has, please document a description and call your doctor. - Also, videos are always helpful. If the seizures are changing in any way, please try to record them on video if possible. This can be done on your cell phone or via a video recorder. This will help when you meet with your doctor. Bathroom Safety A person with seizures may want to shower instead of bathe to avoid accidental drowning. If falls occur during the patient's typical seizure, a person should use a shower seat, preferably one with a safety strap. Use nonskid strips in your shower or tub. Never use electrical equipment near water. This prevents accidental electrocution. Consider changing glass in shower doors to shatterproof glass. Kitchen Safety If possible, cook when someone else is nearby. Use the back burners of the stove to prevent accidental llamas. Use shatterproof containers as much as possible. For instance, sauces can be transferred from glass bottles to plastic containers for use. Limit time that is required using knives or other sharp objects. If possible, buy foods that are already cut, or ask someone to help in meal preparation. General Safety at Home Do not smoke or light fires in the fireplace unless someone else is present. Do not use space heaters that can be accidentally overturned. When alone, avoid using step stools or ladders, and do not clean rooftop gutters. Purchase power tools and motorized lawn equipment which have a safety switch that will stop the machine if you release the handle (a ' man's' switch). Outdoor and Sports Safety Swimming is okay, but does present certain risks. Never swim alone, and tell friends what to do if you have a seizure while swimming. Wear appropriate protective equipment. Ski with a friend. If a seizure occurs, your friend can seek help, if needed. He or she can also help to get you out of the cold. Consider using a safety hook or belt while riding the ski lift. documented in this encounter [facility] 04-15-2025 History of Present illness Narrative [facility] Patient Name: Hector GA Date of : 1975 Referring Provider: Benton Allen [address] [facility] [id number] INITIAL EPILEPSY CLINIC NOTE 04/15/2025 11:00 AM CHIEF COMPLAINT: New Patient and Seizures HISTORY OF PRESENT ILLNESS Ms. Leon is a 49 year old, left handed (dad and paternal grandmother left handed) female with PMH significant for the following: - baseline left lower facial asymmetry - migraines - IBS - fibromyalgia - psoriasis - eczema - history of shingles - depression - anxiety They present to the Epilepsy Center today for further evaluation and management recommendations regarding recurrent episodes of multiple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 time. - Numbness / tingling: yes - occasionally hands and feet. Usually with the lightheadedness episodes. Started around the same time. Come up in hands not arms. Just the bottom of the feet. - Chest pain: no - Tachycardia: yes - up to 150 - Other symptoms: blank stares LOC Event Description: - Started Sep 2023 after shingles. Occur in any position - they have occurred while in standing and seated position. - Last episode was a few days ago. - What were you doing when it happened? Happened after a stressful situation with her daughter. Face drooping a lot more, eyes rolling around, words slurring. Sitting down when this occurred. She feels her face drooping worsening and muffled hearing, lightheadedness - leading to blacked out vision. - Length of prodrome: up to 6 minutes. - States that her dog gets worked up and noticed a change and notified her spouse when patient is feeling bad. - eyes open during this - Eyes rolling back: yes - Convulsions: no - Mouth maceration: no - Loss of bowel / bladder: no - Post ictal state description (confused, lethargic): confused and tired. Needing a nap. If its a really bad one, feels lethargic. - Drug or alcohol use? no Medical history: - Heart disease: no - Seizures: no - TBI: no - Significant life stressors or recent changes: no - Illness at [id number]: yes Autonomic Screening Do you become dizzy or lightheaded with standing? yes Do you notice your heart racing (tachycardia) with postural change? yes Do you have syncope? yes In the past month, did you have any falls? yes How long can you stand (in minutes) before becoming symptomatic? Takes about 10 seconds. Are symptoms worse after consuming a meal? yes Are symptoms alleviated by sitting/laying down? yes Autonomic check list: YES (Y) or NO (N) Dry mouth: yes Dry eyes: yes Change in sweat: yes, excessively Constipation: yes Abdominal Bloating with shortly after eating: yes Fluctuation of diarrhea and constipation: yes Urination: yes Change in taste: yes Challenge swallowing foods: no Skin changes of blue or redness to distal limbs: yes Fainting /near syncope/syncope: yes Dizziness: yes Lightheadedness: yes Chest pain: no Challenge in breathing: yes Tachycardia: yes Temperature Regulation: yes Current management of orthostatic condition Diet: no restrictions, avoids dairy Exercise: no Water: 80 oz per day, and body armour Salt: not adding salt to diet Stockings: no Current Medications for orthostatic condition None Relevant Work Up To Date EEG 01/30/2024 Impression: This EEG is within normal limits. No epileptiform discharges or EEG seizures were seen during this recording. ---- surveillance monitor 11/22/2024 SUMMARY: Patient completed event monitor secondary to palpitations. Underlying sinus rhythm with excellent heart rate variability. Heart rate ranged from 50-140, average heart 75. A total of 74 strips were sent to us to review. No correlation with any arrhythmias. No evidence atrial fibrillation noted. This is a normal monitor. ---- Labs: Latest Ref Rng 01/23/2025 Protein, Total 6.3 - 8.0 g/dL 6.8 Albumin 3.9 - 4.9 g/dL 3.8 (L) Calcium 8.5 - 10.2 mg/dL 9.0 Bilirubin, Total 0.2 - 1.3 mg/dL 0.2 Alkaline Phosphatase 34 - 123 U/L 95 AST 13 - 35 U/L 25 ALT 7 - 38 U/L 18 Glucose 74 - 99 mg/dL 88 BUN 7 - 21 mg/dL 23 (H) Creatinine 0.58 - 0.96 mg/dL 0.64 Sodium 136 - 144 mmol/L 141 Potassium 3.7 - 5.1 mmol/L 4.6 Chloride 98 - 107 mmol/L 107 CO2 22 - 30 mmol/L 24 Anion Gap 8 - 15 mmol/L 10 eGFR >=60 mL/min/1.73m 110 Radiology: MRA Brain 11/30/2023 IMPRESSION: No intracranial or extracranial arterial large vessel occlusion or significant stenosis. ---- MRA Carotid 11/30/2023 IMPRESSION: No intracranial or extracranial arterial large vessel occlusion or significant stenosis. ---- MRI Brain OSH 10/23/2023 ---- Medications Reviewed buPROPion SR (WELLBUTRIN SR) 150 mg 12 hr tablet Take 1 tablet by mouth two times a day. busPIRone (BUSPAR) 7.5 mg tablet desvenlafaxine ER (PRISTIQ) 100 mg 24 hr tablet hydrOXYzine HCl (ATARAX) 25 mg tablet topiramate (TOPAMAX) 50 mg tablet Take 1 tablet by mouth two times a day. naltrexone 50 mg tablet Take 1 tablet by mouth once daily. busPIRone (BUSPAR) 5 mg tablet Take 1 tablet by mouth every 12 hours. desvenlafaxine ER (KHEDEZLA) 50 mg 24 hr tablet take 1 tablet by mouth once daily . START AFTER 7 DAY COURSE OF 25MG MULTIVITAMIN ORAL Take by mouth. loratadine (CLARITIN) [address] (PROTONIX) 40 mg tablet Take 1 tablet by mouth every afternoon. INV VITAMIN D3 4000 UNIT OR [place] (IRB P525741/[id number]) CAPSULE polyethylene glycol 3350 (MIRALAX) 17 gram/dose powder psyllium husk (METAMUCIL) 3.4 gram/5.4 gram powd ALLERGIES[1] PAST MEDICAL HISTORY: PAST MEDICAL HISTORY[2] PAST SURGICAL HISTORY Procedure Laterality Date COLONOSCOPY 2009 multiple for crohns disease. [employer]. Benign polyp COLONOSCOPY 09/21/2005 active colitis at distal transverse colon COLONOSCOPY around 2007. [place]. Normal. COLONOSCOPY 01/15/2004 severe acute and chronic colitis, sml internal hemorrhoids COLONOSCOPY 03/12/2003 hyperplastic polyp x2, colitis EGD 09/21/2005 chronic reflux like symptoms, normal looking distal esophagus LAPAROSCOPY SURG CHOLECYSTECTOMY 12/13/2023 LIG/TRNSXJ FLP TUBE ABDL/VAG APPR UNI/BI Tubal ligation PAST SURGICAL HISTORY OF wisdom teeth PAST SURGICAL HISTORY OF 2006 hysterectomy lavhbso PAST SURGICAL HISTORY OF tonsilectomy SOCIAL HISTORY[3] family history includes Alcohol/Drug in her maternal grandfather; Arthritis in her mother; Cervical Cancer in her maternal aunt; Colon Cancer in her maternal grandmother; Coronary Artery Disease in her paternal grandfather and paternal grandmother; Diabetes in her mother, paternal grandfather, paternal grandmother, and son; Emphysema in her maternal grandfather; Hypertension in her father and paternal grandfather; Hypothyroidism in her mother; Lipids in her father; Rheumatologic disease in her brother, father, and mother; Stroke in her brother, paternal grandfather, and paternal grandmother. General Examination: BP 113/73 (BP Site: Left Arm, BP Position: Sitting, BP Cuff Size: Regular Adult) Pulse 87 Ht 154.9 cm (5' 1) Wt 97.3 kg (214 lb 8.1 oz) LMP 01/16/2006 SpO2 99% BMI 40.53 kg/m 04/08/25 1326 04/08/25 1420 04/08/25 1421 04/08/25 1422 BP: 113/73 Orthostatic BP: 129/78 132/79 126/87 BP Site: Left Arm BP Position: Sitting Supine Standing Standing BP Cuff Size: Regular Adult Pulse: 87 Orthostatic Pulse: 85 110 108 SpO2: 99% Weight: 97.3 kg (214 lb 8.1 oz) Height: 154.9 cm (5' 1) Neurological Examination: Cognition The patient is alert and oriented times four Lucid and organized in conversation Able to provide detailed medical hx Speech Speech is Normal in fluency, volume, and clarity; no dysarthria Content and syntax are coherent Comprehension: Able to follow several step commands Cranial Nerves PERRLA No ptosis Visual medrano are full to confrontation Extraocular movements are intact - smooth saccades and pursuits; No nystagmus Facial motor exam is weak on left side and asymmetric with left side facial droop Equal sensation of trigeminal nerve - V1,V2, and V3 Neck range of motion is full Trapezius Strength is symmetric, graded 5/5 Tone and Bulk Tone and bulk is normal and preserved bilaterally of arms Tone and bulk is normal and preserved bilaterally of legs No apparent muscle atrophy No pes cavus or hammer toes Motor Examination: Right Upper Extremity: (of 5) Left Upper Extremity: (of 5) Shoulder Abduction Deltoid (Ax/C5) 5 Shoulder Abduction 5 Elbow Flexion Biceps (MC/R and C5/6) 5 Elbow Flexion 5 Elbow Extension Triceps (R/C7) 5 Elbow Extension 5 Wrist Flexion (M/U and C6/7) 5 Wrist Flexion 5 Wrist Extension (R/C7) 5 Wrist Extension 5 Finger Abduction (U/C8) 5 Finger Abduction 5 Finger Extension (R/C7) 5 Finger Extension 5 Finger Flexion (M&Ul/C6,7,8) 4&5th digits - ulnar 2&3 digits - median 5 Finger Flexion 5 Right Lower Extremity: (of 5) Left Lower Extremity: (of 5) Hip Flexion Iliopsoas (L2-3) 5- Hip Flexion 5- Hip Adduction Obturator (L2-L4) 5 Hip Adduction 5 Hip Abduction Gluteus medius (L5-S1) 5 Hip Abduction 5 Knee Extension Quadriceps (L3-4) 5 Knee Extension 5 Knee Flexion Hamstrings (L5-S1) 5 Knee Flexion 5 Dorsiflexion Tibialis Anterior (DP and L4/5) 5 Dorsiflexion 5 Plantarflexion Gastrocnemius/Soleus (S1/2) 5 Plantarflexion 5 Reflexes Right Left Bicep (C5-6MC) 2/ 2/ Tricep (C7-8R) / 2/ BrRad (C5-6R) / 2/ Knee (L3-4F) / 2/ Ankle (S1-2S) / 2/ 1 beat clonus BL Negative Babinski (toes curl down) Moon sign not present Sensation: Intact to light touch, pinprick, and temperature sensation at toes and fingers, bilaterally. Normal proprioception (toe position and thumb). Normal finger vibration and toe vibration. Movement/Coordination Finger-to- nose-finger and [id number]-[id number] intact bilaterally. No evidence of ataxia arms. No limb dysmetria of arms and legs. Rapid alternating movements of pronation and supination, finger and hand tapping intact. There is no asterixis of the hands. No rigidity, cog wheeling, or bradykinesia. No tremors No extrapyramidal findings or dystonia Gait Able to stand without upper body assistance. Normal station and stride. No festination or retropulsion. Good arm swing and body turn. Assessment & Plan 04/08/2025 - Neuromuscular, Benton Allen APRN.SECURITY SOLUTIONS ARCHITECT ASSESSMENT Hector Leon is a 49 year old with a PMH of Cholecystitis, Crohn's disease, depression, eczema, esophageal reflux, fibromyalgia, FATOU, history of shingles, lichen sclerosus, morbid obesity, psoriasis, vitamin D insufficiency who is here today for initial evaluation of POTS. She endorses symptoms including lightheadedness and tachycardia (HR 150 per pt) upon standing, occurring multiple times per day, that began in 09/2023 after shingles. Episodes often accompanied with blurred vision. She reports constant tinnitus, nonpulsatile. Triggers include posture changes, stress, temperature changes lasting ~10-15 minutes, relieved by sitting and/or lying down. She has endorsed multiple falls, last fall 2.5 weeks ago without hit to the head or LOC for this episode. She does report occasional paresthesias of BL hands and feet with associated discoloration of fingertips with temperature changes and lightheadedness episodes. Reported LOC episodes started around 09/2023 that can occur while in any position (while standing or seated). Last episode of LOC was a few days ago after a stressful situation with her daughter that occurred while in seated position. Prodrome symptoms of increased facial droop of the left side (constant state of left facial droop - chronic/not new - following local neurologist), eyes rolling around, muffled hearing, lightheadedness leading to blacked out vision. Episodes have lasted up to 6 minutes. Some witnessed episodes occurring with eyes open. No loss of B/B, mouth maceration, convulsions. Postictal state of confusion and exhaustion. EEG completed 01/30/2024 (she endorsed the same nature of symptoms at that time) WNL without concern for seizure activity. Given episodes occur while in seated position, there is a concern for cardiac etiology for which a engine monitor completed on 11/22/2024 did not reveal any arrhythmia, patient triggered event correlated with NSR. All imaging completed after onset of symptoms: MRI brain at [facility] completed 10/23/2023 unrevealing. MRA brain and MRA carotid at OSH completed 11/30/2023 unrevealing. Recent relevant labs unremarkable. Neurological examination reveals decreased nasolabial fold on left side with obvious asymmetry and left-sided facial droop which is chronic since 09/2023, mild hip flexion weakness. Orthostatic VS today reveals a 25 beat increase in HR upon standing that does not sustain. No orthostatic hypotension. Etiology of LOC episodes unclear at this time. Concern for seizures given blank stares, LOC while in seated position occasionally with eyes open, postictal state of confusion and exhaustion. Although EEG without seizure activity, I have consulted to epilepsy center for further evaluation given concerning features of LOC. Low suspicion of cardiac etiology at this time given engine monitor unrevealing without arrhythmia. Given nature of lightheadedness symptoms are orthostatic with VS today revealing 25 beat increase in HR upon standing, complete tilt table test for further review. Will consider completing QSART in the future given vague paresthesias and discoloration of distal limbs to assess for underlying possible autonomic neuropathy. Ordered CBC and vitamin B12 labs to rule out anemia and vitamin B12 deficiency as potential causes of lightheadedness. PLAN 1. Complete tilt table testing 2. Complete labs - CBC and Vitamin B12 3. Consult to epilepsy center given seizure like concerns 4. Follow up with me after testing Encounter Diagnosis ICD-10-CM 1. Orthostatic lightheadedness R42 NEURO CARDIO AUTONOMIC REFLEX W/WO TILT COMPLETE BLOOD COUNT VITAMIN B12 2. Transient loss of consciousness R55 NEURO CARDIO AUTONOMIC REFLEX W/WO TILT CONSULT TO NEUROLOGY 3. Disturbance of skin sensation R20.9 NEURO CARDIO AUTONOMIC REFLEX W/WO TILT 4. Postural orthostatic tachycardia syndrome (POTS) G90.A Return after testing. I spent a total of 60 minutes on the date of the service which included preparing to see the patient, [id number] patient care, completing clinical documentation, obtaining and/or reviewing separately obtained history, performing a medically appropriate examination, counseling and educating the patient/family/caregiver, ordering medications, tests, or procedures, and communicating with other HCPs (not separately reported). During our face to face clinical encounter we discussed my concerns neurologically in terms of diagnosis, impact on health and activities of living, and addressed questions. I tried to reassure the patient and also address questions. I explained to the patient to call if any questions, to review results, and I want to see them return for neurological follow up as mychart as next steps of communication is agreed upon Patient verbalizes understanding and I have addressed concerns and questions at this visit Patient has my contacts, educational material provided, and my chart sign up. After visit summary discussed. ACTIVE PROBLEM LIST Lichen Sclerosus Genital Atrophy of Female Fibromyalgia Gastroesophageal Reflux Disease Without Esophagitis Other Constipation Lactose Intolerance Generalized Anxiety Disorder Class 3 Severe Obesity Due to Excess Calories With Serious Comorbidity and Body Mass Index (Bmi) of 45.0 to 49.9 in Adult (Hcc) Recurrent Cold Sores Scalp Psoriasis Vitamin D Insufficiency History of Cardiovascular Stress Test Mixed Hyperlipidemia Transient Neurological Symptoms Fatty Liver Office Visit on 04/08/25 NEURO CARDIO AUTONOMIC REFLEX W/WO TILT COMPLETE BLOOD COUNT VITAMIN B12 CONSULT TO NEUROLOGY CONSULT TO NEUROLOGY [place], [place] Neuromuscular Medicine [address] [place] [address]. [id number] Appointment: [phone] 1. This office note has been dictated and may contain minor typographic errors that escaped review 2. The nursing staff and medical assistants are a major part of YOUR TREATMENT TEAM and will be handling your phone calls and inquiries, if any. Unless explicitly told otherwise at the time of your office visit, your study results and ensuing treatment plans will be discussed during your follow-up appointment. If you do not have a follow-up appointment and wish to discuss any issues directly with me, please feel free to obtain one. 3. It is my practice to not fill disability or any other insurance-related forms/documention. All of the office notes, study results, and other pertinent documentation generated as part of your evaluation will be available to you and to your Primary Care Physician (PCP). Use of this material to complete such forms will be at the discretion of your PCP/referring physician Answers submitted by the patient for this visit: Compass 31 (Submitted on 04/07/2025) In the past year, have you ever felt faint, dizzy, goofy, or had difficulty thinking soon after standing up from a sitting or lying position?: Yes In the past year, have you ever noticed color changes in your skin, such as red, white, or purple?: Yes In the past 5 years, what changes, if any, have occurred in your general body sweating?: I sweat much more than I used to Do your eyes feel excessively dry? : Yes Does your mouth feel excessively dry? : Yes For the symptom of dry eyes or dry mouth that you have had for the longest period of time, is this symptom:: Getting much worse In the past year, have you noticed any changes in how quickly you get full when eating a meal?: I haven't noticed any change In the past year, have you felt excessively full or persistently full (bloated feeling) after a meal?: A lot of the time In the past year, have you vomited after a meal? : Sometimes In the past year, have you had a cramping or colicky abdominal pain?: A lot of the time In the past year, have you had any bouts of diarrhea?: Yes In the past year, have you been constipated? : Yes In the past year, have you ever lost control of your bladder function?: Occasionally In the past year, have you had difficulty passing urine?: Occasionally In the past year, have you had trouble completely emptying your bladder?: Occasionally In the past year, without sunglasses or tinted glasses, has bright light bothered your eyes?: Constantly In the past year, have you had trouble focusing your eyes?: Constantly Is this most troublesome symptom with your eyes (i.e. sensitivity to bright light or trouble focusing) getting:: Getting much worse (Submitted on 04/07/2025) When standing up, how frequently do you get these feelings or symptoms?: Almost Always How would you rate the severity of these feelings or symptoms?: Moderate In the past year, have these feelings or symptoms that you have experienced:: Gotten much worse (Submitted on 04/07/2025) What parts of your body are affected by these color changes? : Hands and Feet Are these changes in your skin color:: Getting much worse (Submitted on 04/07/2025) How frequently does this occur?: Occasionally How severe are these bouts of diarrhea?: Severe Are your bouts with diarrhea getting:: Somewhat worse (Submitted on 04/07/2025) How frequently are you constipated? : Frequently How severe are these episodes of constipation? : Severity Is your constipation getting:: Staying the same (Submitted on 04/07/2025) How severe is this sensitivity to bright light?: Severe (Submitted on 04/07/2025) How severe is this focusing problem? : Severe [1] Allergies Allergen Reactions Banana GI Upset Eggs [Egg] GI Upset Lactose Intolerance Prednisone Other: See Comments Black stools [2] Past Medical History: 12/12/2023: Acute cholecystitis Comment: s/p dedra td 2000: Crohn's disease (HCC) Comment: crohns disease, rectal bleeding resolved after hysterectomy. GI in [place] No date: Depression 2007: Dysfunctional uterine bleeding Comment: s/p hysterectomy No date: Dysmenorrhea No date: Eczema No date: Esophageal reflux Comment: Gastroesophageal reflux No date: Fatty liver No date: Fibromyalgia No date: Generalized anxiety disorder 11/23/2023: History of cardiac monitoring Comment: Patient completed event monitor secondary to palpitations. Underlying sinus rhythm with excellent heart rate variability. Heart rate ranged from 50-140, average heart 75. A total of 74 strips were sent to us to review. No correlation with any arrhythmias. No evidence atrial fibrillation noted. This is a normal monitor. 11/17/2020: History of cardiovascular stress test Comment: The patient's resting heart rate was 85 bpm and blood pressure was 112/82 mmHg. The patient exercised according to the Modified Jagdish protocol. Total exercise 6 minutes and 15 seconds. The maximum heart rate was 134 bpm, which is 76% predicted for age. METs achieved was 4.4. The double product achieved was [address]. Peak heart rate was 134 bpm and peak blood pressure was 138/92 mmHg. 10/22/2023: History of echocardiogram Comment: LVEF 55-60%. No significant valvular abnormality. 11/07/2023: History of exercise stress test (without NM imaging) Comment: No electrocardiographic evidence of ischemia. Resting HR 68 bpm and BP was 116/80 mmHg. Exercised according to the Jagdish protocol. Test was terminated due to shortness of breath and leg fatigue. Total exercise time was 4 minutes and 30 seconds. Maximum HR was 157 bpm, which is 90% of the predicted heart rate for age. 08/2023: History of shingles Comment: LUQ, (L) flank, (L) posterior mid back. No date: Lactose intolerance No date: Lichen sclerosus No date: Morbid obesity (HCC) No date: Other acne Comment: Acne No date: Recurrent cold sores No date: Scalp psoriasis No date: Vitamin D insufficiency [3] Social History Tobacco Use Smoking status: Former Current packs/day: 0.00 Types: Cigarettes Quit date: 03/23/1993 Years since quittin.0 Passive exposure: Past Smokeless tobacco: Never Vaping Use Vaping status: Never Used Substance Use Topics Alcohol use: Not Currently Comment: drinking causes LEFT shoulder pain Drug use: Never documented in this encounter [facility] 04-08-2025 Note HNO ID: [id number] Author: BENTON ALLEN APRN.CNP Service: ? Author Type: Nurse Practitioner Type: Progress Notes Filed: 04/08/2025 15:48 Note Text: [facility] New Patient Evaluation Hector Leon is a 49 year old female who presents today for initial evaluation of POTS Hector Leon is referred in consultation by Dangelo Lee MD for POTS. Final recommendations will be communicated to the requesting physician by way of a letter. Recording using Quoteroller software for draft documentation of the visit was discussed with the patient/authorized hospital sales representative; all questions welcomed and answered. Patient/authorized hospital sales representative agreed to proceed. PMH: Cholecystitis, Crohn's disease, depression, eczema, esophageal reflux, fibromyalgia, FATOU, history of shingles, lichen sclerosus, morbid obesity, psoriasis, vitamin D insufficiency. HPI April 08, 2025: Has a DIANE provider - neurology Symptoms: Lightheadedness Tachycardia - just standing still and taking to ppl ok while sitting LOC Dizziness described as lightheadedness and feeling faint that first started Sep 2023 after shingles - When does your dizziness occur: with standing, fast head position changes even when sitting, dizziness with sitting even without movement - during these symptoms every time she will have worsening drooping of the left side of her face - constant state of drooping though. Following local neurologist for this - work up completed regarding bells palsy. - How often: multiple times per day - Vision changes: yes - blurred - Hearing changes: yes - tinnitus constant, high pitched. Steady. - Things that trigger symptoms (certain movements or environments): posture changes. Stress. Temperature changes. - Things that relieve symptoms: sitting and laying down. Slightly tilted back works the best. - How long do episodes last: last about 10-15 minutes. - Falls: yes - most of the time ppl are catching her. 2.5 weeks ago - unsure if she hit her head. - She is not driving anymore - Weakness: yes - whole body feels week. Fatigued all of the time. - Numbness / tingling: yes - occasionally hands and feet. Usually with the lightheadedness episodes. Started around the same time. Come up in hands not arms. Just the bottom of the feet. - Chest pain: no - Tachycardia: yes - up to 150 - Other symptoms: blank stares LOC Event Description: - Started Sep 2023 after shingles. Occur in any position - they have occurred while in standing and seated position. - Last episode was a few days ago. - What were you doing when it happened? Happened after a stressful situation with her daughter. Face drooping a lot more, eyes rolling around, words slurring. Sitting down when this occurred. She feels her face drooping worsening and muffled hearing, lightheadedness - leading to blacked out vision. - Length of prodrome: up to 6 minutes. - States that her dog gets worked up and noticed a change and notified her spouse when patient is feeling bad. - eyes open during this - Eyes rolling back: yes - Convulsions: no - Mouth maceration: no - Loss of bowel / bladder: no - Post ictal state description (confused, lethargic): confused and tired. Needing a nap. If its a really bad one, feels lethargic. - Drug or alcohol use? no Medical history: - Heart disease: no - Seizures: no - TBI: no - Significant life stressors or recent changes: no - Illness at [id number]: yes Autonomic Screening Do you become dizzy or lightheaded with standing? yes Do you notice your heart racing (tachycardia) with postural change? yes Do you have syncope? yes In the past month, did you have any falls? yes How long can you stand (in minutes) before becoming symptomatic? Takes about 10 seconds. Are symptoms worse after consuming a meal? yes Are symptoms alleviated by sitting/laying down? yes Autonomic check list: YES (Y) or NO (N) Dry mouth: yes Dry eyes: yes Change in sweat: yes, excessively Constipation: yes Abdominal Bloating with shortly after eating: yes Fluctuation of diarrhea and constipation: yes Urination: yes Change in taste: yes Challenge swallowing foods: no Skin changes of blue or redness to distal limbs: yes Fainting /near syncope/syncope: yes Dizziness: yes Lightheadedness: yes Chest pain: no Challenge in breathing: yes Tachycardia: yes Temperature Regulation: yes Current management of orthostatic condition Diet: no restrictions, avoids dairy Exercise: no Water: 80 oz per day, and body armour Salt: not adding salt to diet Stockings: no Current Medications for orthostatic condition None Relevant Work Up To Date EEG 01/30/2024 Impression: This EEG is within normal limits. No epileptiform discharges or EEG seizures were seen during this recording. ---- surveillance monitor 11/22/2024 SUMMARY: Patient completed event monitor (more content not included)... [facility] 03-26-2025 Telephone encounter Note [facility] calling for refill on behalf of patient. Next weight mgmt appt 05/07/25. Requested Prescriptions Pending Prescriptions Disp Refills buPROPion SR (WELLBUTRIN SR) 150 mg 12 hr tablet 60 tablet 2 Sig: Take 1 tablet by mouth two times a day. Abeba Horton RN [facility] 03-26-2025 Miscellaneous Notes [facility] calling for refill on behalf of patient. Next weight mgmt appt 05/07/25. Requested Prescriptions Pending Prescriptions Disp Refills buPROPion SR (WELLBUTRIN SR) 150 mg 12 hr tablet 60 tablet 2 Sig: Take 1 tablet by mouth two times a day. Abeba Horton RN documented in this encounter [facility] 03-18-2025 Telephone encounter Note Patient notified and voiced understanding. Nafisa Marks RN [facility] 03-18-2025 Miscellaneous Notes Patient notified and voiced understanding. Nafisa Marks RN Please remind patient she can always change to a virtual visit but just needs to notify office so they can change her over. She should be taking topiramte 50mg BID by neurology and Buproprion BID and Naltrexone BID. She can continue those until she is seen next. Patient cancelled today's weight management follow up due to having a migraine and diarrhea. Patient's next DOS is 05/07/25. No sooner availability with provider. Patient added to wait list. Patient is wanting to know how provider would like patient to continue with medication until she can be seen next. documented in this encounter [facility] 03-18-2025 Telephone encounter Note Please remind patient she can always change to a virtual visit but just needs to notify office so they can change her over. She should be taking topiramte 50mg BID by neurology and Buproprion BID and Naltrexone BID. She can continue those until she is seen next. [facility] 03-18-2025 Telephone encounter Note Patient cancelled today's weight management follow up due to having a migraine and diarrhea. Patient's next DOS is 05/07/25. No sooner availability with provider. Patient added to wait list. Patient is wanting to know how provider would like patient to continue with medication until she can be seen next. [facility] 02-28-2025 Instructions Tanvir Torres APRN.XIOMARA - 02/28/2025 7:34 PM EDT 1. Hematuria, unspecified type (R31.9) 2. Acute cystitis without hematuria (N30.00) - Urinalysis shows hematuria and pyuria, indicating a urinary tract infection. - No fever, chills, nausea, vomiting, back pain, or abdominal pain reported. - Initiated nitrofurantoin therapy. - Urine sample sent for culture to identify causative bacteria and confirm antibiotic sensitivity. - Advised increased fluid intake and avoidance of sugary beverages. - Informed patient to expect symptom improvement within 24 hours. - Patient understands and agrees with the treatment plan. - A prescription for nitrofurantoin has been sent to your pharmacy. Take it exactly as directed and finish the entire course unless we contact you with changes. - Drink plenty of water while you re on the antibiotic. - Avoid sugary beverages such as soda, sweet tea, and wine during treatment. - You should notice improvement in your urinary symptoms within about 24 hours. - Your urine sample was sent for culture to identify the exact bacteria and confirm the best antibiotic. If we need to adjust your medication, we will let you know. documented in this encounter [facility] 02-28-2025 Note HNO ID: [id number] Author: TANVIR TORRES APRN.XIOMARA Service: ? Author Type: Nurse Practitioner Type: Progress Notes Filed: 02/28/2025 19:34 Note Text: [facility] Subjective Hector Leon is a 49 year old female. Patient presents with: Hematuria: Hematuria, pain with urination x today Hematuria Dysuria and Hematuria: - Onset today. - Describes dysuria as a pulling sensation rather than burning. - Denies fever, chills, nausea, emesis, back pain, or abdominal pain. Review of Systems Genitourinary: Positive for hematuria. Constitutional: (-) fever, (-) chills Gastrointestinal: (-) nausea, (-) vomiting, (-) abdominal pain Genitourinary: (+) dysuria, (+) hematuria Musculoskeletal: (-) back pain Objective BP 140/91 Pulse 80 Temp 36.1 ?C (97 ?F) Resp 18 Wt 97.3 kg (214 lb 8.1 oz) LMP 01/16/2006 SpO2 99% BMI 39.73 kg/m? PAST MEDICAL HISTORY Diagnosis Date Acute cholecystitis 12/12/2023 s/p lap td Crohn's disease (HCC) 2000 crohns disease, rectal bleeding resolved after hysterectomy. GI in [facility] Dysfunctional uterine bleeding 2006 s/p hysterectomy Dysmenorrhea Eczema Esophageal reflux Gastroesophageal reflux Fatty liver Fibromyalgia Generalized anxiety disorder History of cardiac monitoring 11/23/2023 Patient completed event monitor secondary to palpitations. Underlying sinus rhythm with excellent heart rate variability. Heart rate ranged from 50-140, average heart 75. A total of 74 strips were sent to us to review. No correlation with any arrhythmias. No evidence atrial fibrillation noted. This is a normal monitor. History of cardiovascular stress test 11/17/2020 The patient's resting heart rate was 85 bpm and blood pressure was 112/82 mmHg. The patient exercised according to the Modified Jagdish protocol. Total exercise 6 minutes and 15 seconds. The maximum heart rate was 134 bpm, which is 76% predicted for age. METs achieved was 4.4. The double product achieved was 79285. Peak heart rate was 134 bpm and peak blood pressure was 138/92 mmHg. History of echocardiogram 10/22/2023 LVEF 55-60%. No significant valvular abnormality. History of exercise stress test (without NM imaging) 11/07/2023 No electrocardiographic evidence of ischemia. Resting HR 68 bpm and BP was 116/80 mmHg. Exercised according to the Jagdish protocol. Test was terminated due to shortness of breath and leg fatigue. Total exercise time was 4 minutes and 30 seconds. Maximum HR was 157 bpm, which is 90% of the predicted heart rate for age. History of shingles 08/2023 LUQ, (L) flank, (L) posterior mid back. Lactose intolerance Lichen sclerosus Morbid obesity (HCC) Other acne Acne Recurrent cold sores Scalp psoriasis Vitamin D insufficiency PAST SURGICAL HISTORY Procedure Laterality Date COLONOSCOPY 2009 multiple for crohns disease. [employer]. Benign polyp COLONOSCOPY 09/21/2005 active colitis at distal transverse colon COLONOSCOPY around 2007. [place]. Normal. COLONOSCOPY 01/15/2004 severe acute and chronic colitis, [facility] internal hemorrhoids COLONOSCOPY 03/12/2003 hyperplastic polyp x2, colitis EGD 09/21/2005 chronic reflux like symptoms, normal looking distal esophagus LAPAROSCOPY SURG CHOLECYSTECTOMY 12/13/2023 LIG/TRNSXJ FLP TUBE ABDL/VAG APPR UNI/BI Tubal ligation PAST SURGICAL HISTORY OF wisdom teeth PAST SURGICAL HISTORY OF 2006 hysterectomy lavhbso PAST SURGICAL HISTORY OF tonsilectomy ALLERGIES Banana, Eggs [Egg], Lactose, and Prednisone MEDICATIONS busPIRone (BUSPAR) 7.5 mg tablet desvenlafaxine ER (PRISTIQ) 100 mg 24 hr tablet hydrOXYzine HCl (ATARAX) 25 mg tablet topiramate (TOPAMAX) 50 mg tablet Take 1 tablet by mouth two times a day. naltrexone 50 mg tablet Take 1 tablet by mouth once daily. buPROPion SR (WELLBUTRIN SR) 150 mg 12 hr tablet Take 1 tablet by mouth two times a day. MULTIVITAMIN ORAL Take by mouth. loratadine (CLARITIN) [address] (PROTONIX) 40 mg tablet Take 1 tablet by mouth every afternoon. INV VITAMIN D3 4000 UNIT OR [place] (IRB [id number]) CAPSULE polyethylene glycol 3350 (MIRALAX) 17 gram/dose powder psyllium husk (METAMUCIL) 3.4 gram/5.4 gram powd busPIRone (BUSPAR) 5 mg tablet Take 1 tablet by mouth every 12 hours. (Patient not taking: Reported on 02/28/2025) tirzepatide, weight loss (ZEPBOUND) 2.5 mg/0.5 mL pen injector Inject 2.5 mg subcutaneously one time a week. desvenlafaxine ER (KHEDEZLA) 50 mg 24 hr tablet take 1 tablet by mouth once daily . START AFTER 7 DAY COURSE OF 25MG (Patient not taking: Reported on 02/28/2025) FAMILY HISTORY Problem Relation Age of Onset Rheumatologic disease Mother Diabetes Mother Arthritis Mother Hypothyroidism Mother Hypertension Father Lipids Father Rheumatologic disease Father RA Rheumatologic disease Brother RA Stroke Brother Colon Cancer Maternal Grandmother (more content not included)... [facility] 02-28-2025 History of Present illness Narrative [facility] Subjective Hector Leon is a 49 year old female. Patient presents with: Hematuria: Hematuria, pain with urination x today Hematuria Dysuria and Hematuria: - Onset today. - Describes dysuria as a pulling sensation rather than burning. - Denies fever, chills, nausea, emesis, back pain, or abdominal pain. Review of Systems Genitourinary: Positive for hematuria. Constitutional: (-) fever, (-) chills Gastrointestinal: (-) nausea, (-) vomiting, (-) abdominal pain Genitourinary: (+) dysuria, (+) hematuria Musculoskeletal: (-) back pain Objective BP 140/91 Pulse 80 Temp 36.1 C (97 F) Resp 18 Wt 97.3 kg (214 lb 8.1 oz) LMP 01/16/2006 SpO2 99% BMI 39.73 kg/m PAST MEDICAL HISTORY Diagnosis Date Acute cholecystitis 12/12/2023 s/p lap td Crohn's disease (HCC) 2000 crohns disease, rectal bleeding resolved after hysterectomy. GI in [place] Depression Dysfunctional uterine bleeding 2006 s/p hysterectomy Dysmenorrhea Eczema Esophageal reflux Gastroesophageal reflux Fatty liver Fibromyalgia Generalized anxiety disorder History of cardiac monitoring 11/23/2023 Patient completed event monitor secondary to palpitations. Underlying sinus rhythm with excellent heart rate variability. Heart rate ranged from 50-140, average heart 75. A total of 74 strips were sent to us to review. No correlation with any arrhythmias. No evidence atrial fibrillation noted. This is a normal monitor. History of cardiovascular stress test 11/17/2020 The patient's resting heart rate was 85 bpm and blood pressure was 112/82 mmHg. The patient exercised according to the Modified Jagdish protocol. Total exercise 6 minutes and 15 seconds. The maximum heart rate was 134 bpm, which is 76% predicted for age. METs achieved was 4.4. The double product achieved was 35830. Peak heart rate was 134 bpm and peak blood pressure was 138/92 mmHg. History of echocardiogram 10/22/2023 LVEF 55-60%. No significant valvular abnormality. History of exercise stress test (without NM imaging) 11/07/2023 No electrocardiographic evidence of ischemia. Resting HR 68 bpm and BP was 116/80 mmHg. Exercised according to the Jagdish protocol. Test was terminated due to shortness of breath and leg fatigue. Total exercise time was 4 minutes and 30 seconds. Maximum HR was 157 bpm, which is 90% of the predicted heart rate for age. History of shingles 08/2023 LUQ, (L) flank, (L) posterior mid back. Lactose intolerance Lichen sclerosus Morbid obesity (HCC) Other acne Acne Recurrent cold sores Scalp psoriasis Vitamin D insufficiency PAST SURGICAL HISTORY Procedure Laterality Date COLONOSCOPY 2009 multiple for crohns disease. [employer]. Benign polyp COLONOSCOPY 09/21/2005 active colitis at distal transverse colon COLONOSCOPY around 2007. [place]. Normal. COLONOSCOPY 01/15/2004 severe acute and chronic colitis, sml internal hemorrhoids COLONOSCOPY 03/12/2003 hyperplastic polyp x2, colitis EGD 09/21/2005 chronic reflux like symptoms, normal looking distal esophagus LAPAROSCOPY SURG CHOLECYSTECTOMY 12/13/2023 LIG/TRNSXJ FLP TUBE ABDL/VAG APPR UNI/BI Tubal ligation PAST SURGICAL HISTORY OF wisdom teeth PAST SURGICAL HISTORY OF 2007 hysterectomy lavhbso PAST SURGICAL HISTORY OF tonsilectomy ALLERGIES Banana, Eggs [Egg], Lactose, and Prednisone MEDICATIONS busPIRone (BUSPAR) 7.5 mg tablet desvenlafaxine ER (PRISTIQ) 100 mg 24 hr tablet hydrOXYzine HCl (ATARAX) 25 mg tablet topiramate (TOPAMAX) 50 mg tablet Take 1 tablet by mouth two times a day. naltrexone 50 mg tablet Take 1 tablet by mouth once daily. buPROPion SR (WELLBUTRIN SR) 150 mg 12 hr tablet Take 1 tablet by mouth two times a day. MULTIVITAMIN ORAL Take by mouth. loratadine (CLARITIN) [address] (PROTONIX) 40 mg tablet Take 1 tablet by mouth every afternoon. INV VITAMIN D3 4000 UNIT [address] [place] (IRB [id number]) CAPSULE polyethylene glycol 3350 (MIRALAX) 17 gram/dose powder psyllium husk (METAMUCIL) 3.4 gram/5.4 gram powd busPIRone (BUSPAR) 5 mg tablet Take 1 tablet by mouth every 12 hours. (Patient not taking: Reported on 02/28/2025) tirzepatide, weight loss (ZEPBOUND) 2.5 mg/0.5 mL pen injector Inject 2.5 mg subcutaneously one time a week. desvenlafaxine ER (KHEDEZLA) 50 mg 24 hr tablet take 1 tablet by mouth once daily . START AFTER 7 DAY COURSE OF 25MG (Patient not taking: Reported on 02/28/2025) FAMILY HISTORY Problem Relation Age of Onset Rheumatologic disease Mother Diabetes Mother Arthritis Mother Hypothyroidism Mother Hypertension Father Lipids Father Rheumatologic disease Father RA Rheumatologic disease Brother RA Stroke Brother Colon Cancer Maternal Grandmother Emphysema Maternal Grandfather Alcohol/Drug Maternal Grandfather alcoholism Coronary Artery Disease Paternal Grandmother Diabetes Paternal Grandmother Stroke Paternal Grandmother Hypertension Paternal Grandfather Coronary Artery Disease Paternal Grandfather Diabetes Paternal Grandfather Stroke Paternal Grandfather Diabetes Son Cervical Cancer Maternal Aunt Social History Tobacco Use Smoking status: Former Current packs/day: 0.00 Types: Cigarettes Quit date: 03/23/1993 Years since quittin.9 Passive exposure: Past Smokeless tobacco: Never Vaping Use Vaping status: Never Used Substance Use Topics Alcohol use: Not Currently Comment: drinking causes LEFT shoulder pain Drug use: Never Physical Exam Vitals and nursing note reviewed. Constitutional: General: She is not in acute distress. Appearance: Normal appearance. She is not ill-appearing. Cardiovascular: Rate and Rhythm: Normal rate and regular rhythm. Heart sounds: Normal heart sounds. Pulmonary: Effort: Pulmonary effort is normal. No respiratory distress. Breath sounds: Normal breath sounds. No wheezing or rales. Abdominal: General: There is no distension. Palpations: Abdomen is soft. There is no mass. Tenderness: There is no abdominal tenderness. There is no right CVA tenderness, left CVA tenderness or guarding. Skin: General: Skin is warm and dry. Neurological: Mental Status: She is alert. General: No acute distress. CV: Heart sounds auscultated. Resp: Breath sounds auscultated. Back: No pain with percussion. Abd: No pain with palpation. {1. Hematuria, unspecified type (R31.9) 2. Acute cystitis without hematuria (N30.00) - Urinalysis shows hematuria and pyuria, indicating a urinary tract infection. - No fever, chills, nausea, vomiting, back pain, or abdominal pain reported. - Initiated nitrofurantoin therapy. - Urine sample sent for culture to identify causative bacteria and confirm antibiotic sensitivity. - Advised increased fluid intake and avoidance of sugary beverages. - Informed patient to expect symptom improvement within 24 hours. - Patient understands and agrees with the treatment plan. - Follow-up with your PCP in 3-5 days if symptoms have not improved or sooner if symptoms worsen - Discussed red flags and need for immediate medical evaluation if any occur. - Discussed supportive care treatment with fluids, rest and analgesia. - Discussed expected course of illness Tanvir Torres APRN.[employer] ARCHITECT and Recording using [employer] software for draft documentation of the visit was discussed with the patient/authorized hospital sales representative; all questions welcomed and answered. Patient/authorized hospital sales representative agreed to proceed History and Record Review External record(s) reviewed: prior labs/imaging. Findings from review of prior labs/imaging: Previous Renal Function Panel Reviewed 04/11/2024: BUN 13; Creatinine 0.80; Estimated Glomerular Filtration Rate 92 01/23/2025: BUN 23 (H); Creatinine 0.64; Estimated Glomerular Filtration Rate 110 Disposition The patient was discharged. Procedures documented in this encounter [facility] 01-31-2025 Telephone encounter Note Images from the original note were not included. pharmacy requesting refill via Phone. Last OV: 02/02/2024 Future OV: None scheduled Last prescribed: 12 months ago (02/02/2024) by Abiodun Li MD Requested Prescriptions Pending Prescriptions Disp Refills topiramate (TOPAMAX) 25 mg tablet 120 tablet 11 Sig: Take by mouth. One tablet daily for a week; then one tablet twice daily for a week; then one table three times daily for a week; then two tablets twice daily thereafter. [facility] 01-31-2025 Miscellaneous Notes Images from the original note were not included. pharmacy requesting refill via Phone. Last OV: 02/02/2024 Future OV: None scheduled Last prescribed: 12 months ago (02/02/2024) by Abiodun Li MD Requested Prescriptions Pending Prescriptions Disp Refills topiramate (TOPAMAX) 25 mg tablet 120 tablet 11 Sig: Take by mouth. One tablet daily for a week; then one tablet twice daily for a week; then one table three times daily for a week; then two tablets twice daily thereafter. Prescription Refill Information The patient has been identified by name and date of : Yes Caregiver verified no other encounters exist for this prescription request: Yes Caregiver confirmed with patient/requestor that no other refills are due, in the near future, with this provider at this time: Yes The last office visit in the department: Does the patient have a future office visit with this provider/department: No Requested Prescriptions Pending Prescriptions Disp Refills topiramate (TOPAMAX) 25 mg tablet 120 tablet 11 Sig: Take by mouth. One tablet daily for a week; then one tablet twice daily for a week; then one table three times daily for a week; then two tablets twice daily thereafter. Angela Barlow January 31, 2025 10:37 AM documented in this encounter [facility] 01-31-2025 Telephone encounter Note Prescription Refill Information The patient has been identified by name and date of : Yes Caregiver verified no other encounters exist for this prescription request: Yes Caregiver confirmed with patient/requestor that no other refills are due, in the near future, with this provider at this time: Yes The last office visit in the department: Does the patient have a future office visit with this provider/department: No Requested Prescriptions Pending Prescriptions Disp Refills topiramate (TOPAMAX) 25 mg tablet 120 tablet 11 Sig: Take by mouth. One tablet daily for a week; then one tablet twice daily for a week; then one table three times daily for a week; then two tablets twice daily thereafter. Angela Barlow January 31, 2025 10:37 AM [facility] 01-25-2025 Telephone encounter Note FYI [facility] 01-25-2025 Miscellaneous Notes FYI documented in this encounter [facility] 01-14-2025 History of Present illness Narrative Images from the original note were not included. Some documentation from previous visit of 09/28/24 was copied and pasted, documentation has been reviewed and edited as necessary for today's visit. Patient Summary: Hector is a 49 year old Female who presents for follow-up evaluation of obesity/weight management to treat and prevent related co-morbidities. In our previous visits we have discussed lifestyle intervention including a nutrition recommendations and physical activity optimization. Her last office visit was 4 month ago. Assessment/plan from last visit: - stop phentermine (pt stopped yesterday when contacted office) - recommend EKG and HOLTER monitor- pt states PCP was willing to get this done- she will contact her. Pt will send results -discussed stress and impact on weight and hunger hormones -discussed if cleared by cardiology- may go back to phentermine or consider shorter acting diethylpropion - continue vit D supplement - Continue protonix for GERD -phentermine >5% TBW loss in initial 3 months of phentermine use qualifying for long-term off label treatment of obesity - taking topiramate by PCP for migraines - discussed routine exercise and impact on weight and weight maintenance - discussed increasing protein (sebastien while off phentermine to avoid cravings) - FITTE rx given - discussed tachycardia likely from Covid Interval History PT specifies the following items as new or significant updates since the last appointment: -more stress b/c daughter moved in with fiance - 3 cats - had colonoscopy- after that doesn't feel like she can get full- not making great choices and she knows that -not sleeping well- staying up late - had tilt table test- inconclusive. Still no diagnosis yet. But heart still racing at times off medication. Passes out at times. Weight loss since last vist: 6 lb Total weight lost: 41 lbs - Last Wt 01/14/25 : 94.3 kg (208 lb) 09/28/24 : 91.6 kg (202 lb) 06/25/24 : 102.9 kg (227 lb) 05/28/24 : 106.6 kg (235 lb) 04/10/24 : 112.9 kg (249 lb) Date: 04/10/2024 249 lb BMI: 47.05 5% weight loss = 236 lbs, 10% weight loss = 224 lbs Adjusted ideal body weight: 67.3 kg (148 lb 4.7 oz) Anti-obesity medications: Benefit:makes her stop thinking about food, doesn't feel hungry Adverse effects: none Anti-obesity medications: Topiramate. 50 mg bid Benefit:was started for migraines Adverse effects: none AOM Medications: Topiramate by Neurologist Weight promoting medications: Effexor 75mg changed to Desvenlafaxine Previous Diet (initial appointment): Awake - 7:30 B - coffee azerbaijani sweet cream, apple juice (8oz) [place] wrap taco velásquez, watermelon juice (8oz) , oatmeal (packet), toast, blueberries , turkey sausage , hash browns S - fruit L - chipolte bowl chicken w/ guac, apple/pecan salad w/ chicken , chicken wrap, almonds, pretzels,pizza, S - halo oranges D - tilapia, brown rice spag, carrots, ludwin, garlic bread , beats, beans, cucumbers, veggie pizza slices, cheesy bread , cream cheese ragoons S - peach cobbler blizzard sometimes , sweets Fluids: coffee juice, stopped soda, 100 oz water per day Bedtime - 11:30pm Quality of diet: 24hr recall suggests healthy diet. Characterization of diet:Unstructured, unhealthy snacking, and increased consumption of sugar sweetened beverages. Criminal Analyst of impaired eating habits:lack of satiety, emotion, and does go back for seconds- more protein- meat- loves red meat but can't eat after gallbladder Eating Disorder no Cravings: savory- karmen cheese steaks, sometimes sweets Dietary changes: B - Owyn 32g if not then may have [place], eggs, briseno, hashbrowns S - L - sometimes owyn protein shake, sometimes oikos yogurt, lactate cottage cheese- hot dogs, south korean fries, burgers, S - D - always a meat, spaghetti w/ protein, peas, carrots, broccoli, COD, celery, S - Fluids - water 101 oz per day. Eating 3 meals a day, including breakfast Increasing water intake Controlling portions Increasing protein Reducing sugar-sweetened beverages Reducing carbohydrates Eating less take out/fast food Current Barriers: reduced physical activity Exercise: not structured- but tries to walk up and down driveway stable Stress: yes- parents live with her stable Sleep: 7 hrs, no JOCELYN CrCl cannot be calculated (Patient's most recent lab result is older than the maximum 180 days allowed.). PAST MEDICAL HISTORY Diagnosis Date Acute cholecystitis 12/12/2023 s/p lap td Crohn's disease (HCC) 2000 crohns disease, rectal bleeding resolved after hysterectomy. GI in [place] Depression Dysfunctional uterine bleeding 2006 s/p hysterectomy Dysmenorrhea Eczema Esophageal reflux Gastroesophageal reflux Fatty liver Fibromyalgia Generalized anxiety disorder History of cardiac monitoring 11/23/2023 Patient completed event monitor secondary to palpitations. Underlying sinus rhythm with excellent heart rate variability. Heart rate ranged from 50-140, average heart 75. A total of 74 strips were sent to us to review. No correlation with any arrhythmias. No evidence atrial fibrillation noted. This is a normal monitor. History of cardiovascular stress test 11/17/2020 The patient's resting heart rate was 85 bpm and blood pressure was 112/82 mmHg. The patient exercised according to the Modified Jagdish protocol. Total exercise 6 minutes and 15 seconds. The maximum heart rate was 134 bpm, which is 76% predicted for age. METs achieved was 4.4. The double product achieved was 91500. Peak heart rate was 134 bpm and peak blood pressure was 138/92 mmHg. History of echocardiogram 10/22/2023 LVEF 55-60%. No significant valvular abnormality. History of exercise stress test (without NM imaging) 11/07/2023 No electrocardiographic evidence of ischemia. Resting HR 68 bpm and BP was 116/80 mmHg. Exercised according to the Jagdish protocol. Test was terminated due to shortness of breath and leg fatigue. Total exercise time was 4 minutes and 30 seconds. Maximum HR was 157 bpm, which is 90% of the predicted heart rate for age. History of shingles 08/2023 LUQ, (L) flank, (L) posterior mid back. Lactose intolerance Lichen sclerosus Morbid obesity (HCC) Other acne Acne Recurrent cold sores Scalp psoriasis Vitamin D insufficiency Current Outpatient Medications Medication Sig Dispense Refill busPIRone (BUSPAR) 5 mg tablet Take 1 tablet by mouth every 12 hours. desvenlafaxine ER (KHEDEZLA) 50 mg 24 hr tablet take 1 tablet by mouth once daily . START AFTER 7 DAY COURSE OF 25MG MULTIVITAMIN ORAL Take by mouth. loratadine (CLARITIN) [address] (PROTONIX) 40 mg tablet Take 1 tablet by mouth every afternoon. INV VITAMIN D3 4000 UN[address] [place] (IRB [id number]) CAPSULE polyethylene glycol 3350 (MIRALAX) 17 gram/dose powder psyllium husk (METAMUCIL) 3.4 gram/5.4 gram powd topiramate (TOPAMAX) 25 mg tablet Take by mouth. One tablet daily for a week; then one tablet twice daily for a week; then one table three times daily for a week; then two tablets twice daily thereafter. (Patient taking differently: 50 mg two times a day. Take by mouth. One tablet daily for a week; then one tablet twice daily for a week; then one table three times daily for a week; then two tablets twice daily thereafter.) 120 tablet 11 No current facility-administered medications for this visit. ROS : denies numbness or tingling, no brain fog. ROS/Fam Hx pertaining to AOMs: GEN: Fatigue:yes CV: h/o palpitations/cardiac arrhythmia, Chest pain: yes- stress test/echo normal- more related to anxiety HTN: no PULM: Asthma:no GI: GERD:yes ; Gallstones:no, had a gallbladder removed ; Fatty liver disease:yes Pancreatitis: no MSK: Joint Pain:yes : Nephrolithiasis: no Symptoms of PCOS: no NEURO: Migraines/DIANE: yes ; H/o seizures: no Glaucoma:no; Cataracts no Symptoms of or History of pseudotumor cerebri:no Family or personal History of MEN2 or Medullary thyroid cancer: yes, mother has thyroid issues. 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 Latest Ref Rng & Units 04/11/2024 CMP Sodium 136 - 144 mmol/L 140 Potassium 3.7 - 5.1 mmol/L 4.1 Chloride 98 - 107 mmol/L 107 CO2 22 - 30 mmol/L 22 Glucose 74 - 99 mg/dL 97 BUN 7 - 21 mg/dL 13 Creatinine 0.58 - 0.96 mg/dL 0.80 EGFR >=60 mL/min/1.73m 92 Protein, Total 6.3 - 8.0 g/dL 6.8 Albumin 3.9 - 4.9 g/dL 3.8 Calcium 8.5 - 10.2 mg/dL 9.0 Bilirubin, Total 0.2 - 1.3 mg/dL 0.2 AST 13 - 35 U/L 21 ALT 7 - 38 U/L 17 Alkaline Phosphatase 34 - 123 U/L 100 Cholesterol, Total (mg/dL) Date Value 12/06/2023 112 03/26/2015 147 Total Cholesterol, Nonfasting (mg/dL) Date Value 11/24/2020 163 HDL Cholesterol (mg/dL) Date Value 12/06/2023 51 03/26/2015 45 HDL Cholesterol, Nonfasting (mg/dL) Date Value 11/24/2020 53 LDL Cholesterol, Calculated (mg/dL) Date Value 12/06/2023 48 03/26/2015 78 LDL Cholesterol Calculated, Nonfasting (mg/dL) Date Value 11/24/2020 90 Triglyceride (mg/dL) Date Value 12/06/2023 63 03/26/2015 118 Triglycerides, Nonfasting (mg/dL) Date Value 11/24/2020 102 Latest Ref Rng & Units 12/16/2023 CBC WBC 3.70 - 11.00 k/uL 6.35 RBC 3.90 - 5.20 m/uL 4.58 Hemoglobin 11.5 - 15.5 g/dL 13.6 Hematocrit 36.0 - 46.0 % 41.1 MCV 80.0 - 100.0 fL 89.7 MCH 26.0 - 34.0 pg 29.7 MCHC 30.5 - 36.0 g/dL 33.1 RDW-CV 11.5 - 15.0 % 12.5 Platelet Count 150 - 400 k/uL 322 MPV 9.0 - 12.7 fL 9.9 Baso% % 0.5 Abs Neut (ANC) 1.45 - 7.50 k/uL 2.98 Abs Lymph 1.00 - 4.00 k/uL 2.65 Abs [place] <0.87 k/uL 0.52 Abs Eosin <0.46 k/uL 0.15 Abs Baso <0.11 k/uL 0.03 NRBC /100 WBC 0.0 Vitamin D 25 Hydroxy Date Value Ref Range Status 04/11/2024 37.2 31.0 - 80.0 ng/mL Final 12/07/2023 24.6 (L) 31.0 - 80.0 ng/mL Final Comment: Classification of 25 OH Vitamin D status: Deficiency/Insufficiency: < or = 30 ng/ml. Sufficiency/Optimal Levels: 31-80 ng/mL Toxicity: > 100 ng/mL. Test performed by chemiluminescent immunoassay. TSH Date Value 04/11/2024 2.360 mIU/L 10/22/2022 2.580 mIU/L 11/24/2020 2.590 uU/mL 03/26/2015 2.950 uU/mL ) Hemoglobin A1C (%) Date Value 12/06/2023 5.1 10/22/2022 5.3 11/24/2020 5.4 Insulin Date Value Ref Range Status 04/11/2024 12.0 3.0 - 25.0 mU/L Final Assessment/Plan: Hector Leon is a 49 year old yo with Class III obesity who presented today for follow up for supervised weight loss to treat and prevent related co-morbidities. (E78.2) Mixed hyperlipidemia (primary encounter diagnosis) (E55.9) Vitamin D deficiency (K76.0) Fatty liver (K21.9) Gastroesophageal reflux disease without esophagitis (M79.7) Fibromyalgia (E66.813, Z68.42) Class 3 severe obesity due to excess calories with serious comorbidity and body mass index (BMI) of 45.0 to 49.9 in adult (Z79.899) Encounter for long-term (current) use of medications (E88.819) Insulin resistance -no further phentermine unless cleared by cardiology -discussed stress and lack of sleep and impact on weight and hunger hormones -BACK TO BASICS and tracking food. More whole foods. - continue vit D supplement - Continue protonix for GERD - taking topiramate by PCP for migraines - discussed routine exercise and impact on weight and weight maintenance - discussed increasing protein aim for 90-150g - Will order zepbound- PA needed. If not approved will do naltrexone/buproprion possible metformin (first if indicated then add other two) - An overall goal of 150-200 minutes per week of exercise has been effective in weight loss and maintenance. Prescription instructions reviewed with patient as applicable. Potential red flag symptoms discussed with the patient. Reviewed appropriate action plan to take if red flag symptoms occur. Patient agreeable to treatment plan. RTO 2 months- will communicate via [employer] and [employer] once work up for tachycardia complete. I spent a total of 31 minutes on the date of the service which included preparing to see the patient, [id number] patient care, completing clinical documentation, obtaining and/or reviewing separately obtained history, performing a medically appropriate examination, counseling and educating the patient/family/caregiver, and ordering medications, tests, or procedures. Fallon Sullivan MD, FACOG, DABOM documented in this encounter [facility] 01-14-2025 Note HNO ID: [id number] Author: FALLON LARSON MD Service: ? Author Type: Physician Type: Progress Notes Filed: 01/14/2025 16:42 Note Text: Some documentation from previous visit of 09/28/24 was copied and pasted, documentation has been reviewed and edited as necessary for today's visit. Patient Summary: Hector is a 49 year old Female who presents for follow-up evaluation of obesity/weight management to treat and prevent related co-morbidities. In our previous visits we have discussed lifestyle intervention including a nutrition recommendations and physical activity optimization. Her last office visit was 4 month ago. Assessment/plan from last visit: - stop phentermine (pt stopped yesterday when contacted office) - recommend EKG and HOLTER monitor- pt states PCP was willing to get this done- she will contact her. Pt will send results -discussed stress and impact on weight and hunger hormones -discussed if cleared by cardiology- may go back to phentermine or consider shorter acting diethylpropion - continue vit D supplement - Continue protonix for GERD -phentermine >5% TBW loss in initial 3 months of phentermine use qualifying for long-term off label treatment of obesity - taking topiramate by PCP for migraines - discussed routine exercise and impact on weight and weight maintenance - discussed increasing protein (sebastien while off phentermine to avoid cravings) - FITTE rx given - discussed tachycardia likely from Covid Interval History PT specifies the following items as new or significant updates since the last appointment: -more stress b/c daughter moved in with fiance - 3 cats - had colonoscopy- after that doesn't feel like she can get full- not making great choices and she knows that -not sleeping well- staying up late - had tilt table test- inconclusive. Still no diagnosis yet. But heart still racing at times off medication. Passes out at times. Weight loss since last vist: 6 lb Total weight lost: 41 lbs - Last Wt 01/14/25 : 94.3 kg (208 lb) 09/28/24 : 91.6 kg (202 lb) 06/25/24 : 102.9 kg (227 lb) 05/28/24 : 106.6 kg (235 lb) 04/10/24 : 112.9 kg (249 lb) Date: 04/10/2024 249 lb BMI: 47.05 5% weight loss = 236 lbs, 10% weight loss = 224 lbs Adjusted ideal body weight: 67.3 kg (148 lb 4.7 oz) Anti-obesity medications: Benefit:makes her stop thinking about food, doesn't feel hungry Adverse effects: none Anti-obesity medications: Topiramate. 50 mg bid Benefit:was started for migraines Adverse effects: none AOM Medications: Topiramate by Neurologist Weight promoting medications: Effexor 75mg changed to Desvenlafaxine Previous Diet (initial appointment): Awake - 7:30 B - coffee azerbaijani sweet cream, apple juice (8oz) [place] wrap taco velásquez, watermelon juice (8oz) , oatmeal (packet), toast, blueberries , turkey sausage , hash browns S - fruit L - chipolte bowl chicken w/ guac, apple/pecan salad w/ chicken , chicken wrap, almonds, pretzels,pizza, S - halo oranges D - tilapia, brown rice spag, carrots, ludwin, garlic bread , beats, beans, cucumbers, veggie pizza slices, cheesy bread , cream cheese ragoons S - peach cobbler blizzard sometimes , sweets Fluids: coffee juice, stopped soda, 100 oz water per day Bedtime - 11:30pm Quality of diet: 24hr recall suggests healthy diet. Characterization of diet:Unstructured, unhealthy snacking, and increased consumption of sugar sweetened beverages. Criminal Analyst of impaired eating habits:lack of satiety, emotion, and does go back for seconds- more protein- meat- loves red meat but can't eat after gallbladder Eating Disorder no Cravings: savory- karmen cheese steaks, sometimes sweets Dietary changes: B - Owyn 32g if not then may have [place], eggs, briseno, hashbrowns S - L - sometimes owyn protein shake, sometimes oikos yogurt, lactate cottage cheese- hot dogs, south korean fries, burgers, S - D - always a meat, spaghetti w/ protein, peas, carrots, broccoli, COD, celery, S - Fluids - water 101 oz per day. Eating 3 meals a day, including breakfast Increasing water intake Controlling portions Increasing protein Reducing sugar-sweetened beverages Reducing carbohydrates Eating less take out/fast food Current Barriers: reduced physical activity Exercise: not structured- but tries to walk up and down driveway stable Stress: yes- parents live with her stable Sleep: 7 hrs, no JOCELYN CrCl cannot be calculated (Patient's most recent lab result is older than the maximum 180 days allowed.). PAST MEDICAL HISTORY Diagnosis Date Acute cholecystitis 12/12/2023 s/p lap td Crohn's disease (HCC) 2000 crohns disease, rectal bleeding resolved after hysterectomy. GI in [place] Depression Dysfunctional uterine bleeding 2006 s/p hysterectomy Dysmenorrhea Eczema Esophageal reflux Gastroesophageal reflux Fatty liver Fibromyalgia Generalized anxiety disorder History of card (more content not included)... [facility] 11-13-2024 Note [facility] Medical Records Department [address] [place] [address] History Physical Exam 11/13/24 0849 MR#: [id number] Acct: [id number] Name: HECTOR LEON Rep #: [id number] : 1975 49 From: Abiodun He MD PCP: Dr. Dangelo Lee MD Status:[facility] Location: [place] [address] HPI - General HPI Narrative HECTOR LEON, is a 49 F who presents for surveillance colonoscopy. She confirms her preappointment questionnaire that she has not experienced any change in her bowel habits-and particularly denies any notice of blood. If anything, she states that her bowels have been more regular and more effortless since her cholecystectomy with me on 12/14/2023. Beyond the surgery she has been making more regular use of fiber and MiraLAX. She also shares about her family history with colon cancer in her maternal grandmother at the age of 59. Lastly she confirms that her prep was completed successfully and that her output is now clear. [facility] Medical History (Updated 11/13/24 @ 08:[address] Abiodun He MD) Wears glasses Post-menopausal Depression Anxiety Bite by animal Hemiplegic migraine Blackout History of IBS Non-smoker History of Holter monitoring History of echocardiogram Family history of colon cancer Personal history of colonic polyps IBS (irritable bowel syndrome) Migraine Back problem GERD (gastroesophageal reflux disease) Fatty liver Bilateral tinnitus Gallstones Morbid obesity Fibromyalgia Home Medications ???Medication ???Instructions ???Recorded ???Last Taken ???Type polyethylene glycol 3350 17 4 g PO DAILY 01/10/24 Unknown Hist ory gram/dose oral powder (Miralax) psyllium husk 0.4 gram capsule 0.4 g PO DAILY 01/10/24 11/10/24 H istory (Metamucil) pantoprazole 40 mg tablet,delayed 40 mg PO DAILY #90 tabs 07/02/24 Unknown Rx release (Protonix) cholecalciferol (vitamin D3) 10 4,000 unit PO DAILY 09/03/2411/10 History mcg (400 unit) capsule topiramate 25 mg tablet 50 mg PO BID Migraines 09/03/24 History loratadine 10 mg tablet 10 mg PO QDAY 10/02/24 Unknown His tory multivitamin 1 tab PO QDAY 10/02/24 11/10/24 Hi story desvenlafaxine 100 mg 100 mg PO QDAY #30 tabs 10/15/24 0 11/10/24 Rx tablet,extended release 24 hr Allergy/AdvReac Type Severity Reaction Status Date / Time egg Allergy Other Verified 11/13/24 07:48 lactose (lactose intolerant) Allergy Constipatio Verified 11/13/24 07:48 n Food Allergies: Uncoded AdvReac BANANA, Verified 11/13/24 07:48 THROAT SWELLS milk AdvReac Constipatio Verified 11/13/24 07:48 n prednisone AdvReac Nausea/Vom/ Verified 11/13/24 07:48 Diarrhea Family History Mother Age: 67 Rheumatoid arthritis Hypertension Osteoporosis Thyroid disorder Anemia Anxiety Father Age: 71 Hypertension Hyperlipemia Grandmother VTE (venous thromboembolism) Maternal grandmother. Colon cancer at 59yrs Blood coagulation disorder Age related osteoporosis Rheumatoid arthritis Brother Age: 44 VTE (venous thromboembolism) CVA (cerebral vascular accident) Hypertension Rheumatoid arthritis Grandfather Alcoholism Grandmother Diabetes Heart disease Grandfather Diabetes Heart disease Aunt Schizophrenia Surgical History (Updated 11/08/24 @ 14:46 by Suzie Scott) History of hysterectomy Hx of colonoscopy S/P cholecystectomy S/P tonsillectomy and adenoidectomy H/O tubal ligation H/O: hysterectomy Social History adopted: No household members: spouse, family and children current occupational status: unemployed pets and animals: Yes pets and animals: cat(s), dog(s), fish and farm animals sexually active: Yes Smoking Status: Never smoker Electronic Cigarette Use: not used alcohol intake: current alcohol intake frequency: holidays/special occasions only substance use type: does not use diet: lactose free and other caffeine: Yes (1) Type: coffee frequency: does not exercise seatbelt use: always do you feel safe at home: Yes Past Medical/Surgical History Planned Operation Planned Operative Procedure(s): COLONOSCOPY Previous Hospitalizations/Surgeries HX Hospitalizations: Yes (09/2023 MIGRANES VS CVA) Any Problems With Anesthesia: Yes (ANXIETY, AND GETS HEMAPLEGIC MIGRANES THAT MIMIC S/S OF CVA) You/Your Family Experience Fever (Hyperthermia) With Anes: No Cholinesterase deficiency: No Cardiovascular Hx of Irregular Heartbeat and/or Afib: No Hx Heart Attack: No Hx Congestive Heart Failure: No Hx Hypertension: No Hx Pacemaker: No Respiratory Hx Chronic Obstructive Pulmonary Disease (COPD): No Hx Asthma: No Hx Emphysema: No Hx Sleep Apnea: No CPAP: No Hx Respiratory Tract (more content not included)... [facility] 09-28-2024 Instructions Fallon Larson MD - 09/28/2024 12:58 PM EST Images from the original note were not included. Creating a Mindful Eating Environment: 10 Mindless Eating Solutions If you're looking for easier ways to make healthy changes to your diet and lifestyle, consider these simple mindless eating solutions for staying on-track with nutrition: Serve Salad and Vegetables First. Before bringing out your main dish, serve salad and vegetables first to ensure you're eating enough of this important food group. This strategy will also help you eat less of the rest of your dish which is likely higher in calories, etc. Serve Your Main [facility] on the Stove or Counter. Studies show that we're likely to eat less if our food is placed on the stove or counter rather than right in front of us. Eat on Smaller Plates. Similar to the strategy mentioned above, studies show that you're likely to consume less food if you're eating from a smaller plate. This is likely due to the increase of smaller portion sizes. Turn off Your Television. Watching television as you eat can be highly distracting, and it affects your ability to eat mindfully. For example: you're less likely to notice when you're full, so you might consume excess calories. Keep Mostly Water On-hand. Calories from drinks can add up quickly, especially in fruit juices, alcohol and soft drinks. By minimizing the amounts of those drinks on-hand, you're more likely to consume water when you're thirsty - and water has amazing health benefits! Keep Your Kitchen Organized. An organized refrigerator, counter and cabinet space makes you more likely to find and choose the foods which are healthiest for you. On the contrary, a messy kitchen space may make you more apt to grab the first item you see. Pre-cut Your Fruits and Vegetables. Let's admit it: We're more likely to put off eating produce if we have to go through the burden of cutting it first. Pre-cut fruits and vegetables will eliminate this extra step. Have at Least Six Single Servings of Lean Protein On-hand. This includes lean meats such as turkey and chicken, yogurt, eggs, nuts, beans and legumes. By having plenty of lean protein on-hand, you can better manage your appetite and hunger levels. Keep All Snack Foods in One Inconvenient Cupboard. You're less likely to reach for unhealthy snack foods if they're not all gazing up at you from plain sight! Keep Only a Fruit Bowl on Your Counter. This way, if you're one to grab foods based off of their availability, you'll reach for healthier fruits rather than less healthy snack foods. https://www.obesityaction.org/comm unity/news/community-news/create-a -nxijevs-ovnbnm-berunqiinmd/ Foods that fight inflammation May 16, 2020 Doctors are learning that one of the best ways to reduce inflammation lies not in the medicine cabinet, but in the refrigerator. By following an anti-inflammatory diet you can fight off inflammation for good. What does an anti-inflammatory diet do? Your immune system becomes activated when your body recognizes anything that is foreign--such as an invading microbe, plant pollen, or chemical. This often triggers a process called inflammation. Intermittent bouts of inflammation directed at truly threatening invaders protect your health. However, sometimes inflammation persists, day in and day out, even when you are not threatened by a foreign invader. That's when inflammation can become your enemy. Many major diseases that plague us--including cancer, heart disease, diabetes, arthritis, depression, and Alzheimer's--have been linked to chronic inflammation. One of the most powerful tools to combat inflammation comes not from the pharmacy, but from the grocery store. Many experimental studies have shown that components of foods or beverages may have anti-inflammatory effects, says Dr. Lenin Palafox, professor of nutrition and epidemiology in the Department of Nutrition at the [employer]. Choose the right anti-inflammatory foods, and you may be able to reduce your risk of illness. Consistently pick the wrong ones, and you could accelerate the inflammatory disease process. Get simple tips to fight inflammation and stay healthy -- from [facility] experts. Protect yourself from the damage of chronic inflammation Click here to learn more Foods that cause inflammation Try to avoid or limit these foods as much as possible: refined carbohydrates, such as white bread and pastries Maori fries and other fried foods soda and other sugar-sweetened beverages red meat (burgers, steaks) and processed meat (hot dogs, sausage) margarine, shortening, and lard The health risks of inflammatory foods Not surprisingly, the same foods on an inflammation diet are generally considered bad for our health, including sodas and refined carbohydrates, as well as red meat and processed meats. Some of the foods that have been associated with an increased risk for chronic diseases such as type 2 diabetes and heart disease are also associated with excess inflammation, Dr. Palafox says. It's not surprising, since inflammation is an important underlying mechanism for the development of these diseases. Unhealthy foods also contribute to weight gain, which is itself a risk factor for inflammation. Yet in several studies, even after researchers took obesity into account, the link between foods and inflammation remained, which suggests weight gain isn't the sole uke driver. Some of the food components or ingredients may have independent effects on inflammation over and above increased caloric intake, Dr. Palafox says. Anti-inflammatory foods An anti-inflammatory diet should include these foods: tomatoes olive oil green leafy vegetables, such as spinach, kale, and collards nuts like almonds and walnuts fatty fish like salmon, mackerel, tuna, and sardines fruits such as strawberries, blueberries, cherries, and oranges Benefits of anti-inflammatory foods On the flip side are beverages and foods that reduce inflammation, and with it, chronic disease, says Dr. Palafox. He notes in particular fruits and vegetables such as blueberries, apples, and leafy greens that are high in natural antioxidants and polyphenols--protective compounds found in plants. Studies have also associated nuts with reduced markers of inflammation and a lower risk of cardiovascular disease and diabetes. Coffee, which contains polyphenols and other anti-inflammatory compounds, may protect against inflammation, as well. Anti-inflammatory diet To reduce levels of inflammation, aim for an overall healthy diet. If you're looking for an eating plan that closely follows the tenets of anti-inflammatory eating, consider the Mediterranean diet, which is high in fruits, vegetables, nuts, whole grains, fish, and healthy oils. In addition to lowering inflammation, a more natural, less processed diet can have noticeable effects on your physical and emotional health. A healthy diet is beneficial not only for reducing the risk of chronic diseases, but also for improving mood and overall quality of life, Dr. Palafox says. What the Food Groups Do For You Spice Miller are always stressing the importance of a balanced diet, and for good reason. Each food group--and each food within a given group--offers a different nutrient package. This doesn t mean that you have to cover each group in every meal. But over the course of a day, you should have something from each group. And over the longer term--say, a week or a month--you should strive to eat a variety of foods from within each group, particularly vegetables and fruits.Here s a quick overview of what each group has to offer--and how much we should all be consuming. Vegetables and fruits. Fruit and vegetable intake is associated with reduced risk of a number of chronic diseases, including cardiovascular disease, type 2 diabetes, certain kinds of cancer, and dementia. Some of these benefits come from the nutrients and fiber in produce. These include not only the obvious vitamins and minerals, but also phytochemicals ranging from the anti-carcinogenic isothiocyanates in cruciferous vegetables like broccoli and cauliflower to antioxidants like vitamin C and hesperetin in citrus fruits. Fiber, too, is associated with a host of benefits, including bowel health, increased insulin sensitivity, and slower digestion that makes you feel hager longer. Increasing your intake of fruits and vegetables may also improve your overall diet simply by displacing less healthy foods. The USDA now recommends daily consumption of 2 to 3 cups (roughly four to six half-cup servings) of vegetables and another 1 to 2 cups of fruit (three to four half-cup servings; see Table 1, page 9).Whole grains. Carbohydrates are primarily an energy source to fuel your body. But whole grains--such as quinoa, barley, and brown rice--do even more for you. Whole grains come packaged with their natural fiber, vitamins, minerals, and phytochemicals, so they deliver additional health benefits. Perhaps that s why research shows that people who eat whole grains tend to live longer and have a lower risk of chronic diseases, especially cardiovascular disease. By contrast, refined grains (such as white flour) have been stripped of their fiber-rich bran (the outer coating of the kernel) as well as the vitamin- and mineral-packed germ (see Figure 2, at left). For people up to age 50, the recommended intake is 38 grams for men and 25 grams for women (unless they are or , in which case the recommendation goes up to 28 grams and 29 grams, respectively). The recommendation is lower for people over age 50: 30 grams for men, and 21 grams for women. Dairy. Our first food as infants is milk, and dairy is associated with improved bone health, especially in children and adolescents. While adults don t need to consume dairy products, dairy foods offer protein and an array of vitamins and minerals, including calcium. Some dairy foods (Israeli yogurt, cottage cheese, other cheeses) are better sources of protein than others (milk, regular yogurt), but keep in mind that many types of cheese are high in sodium and saturated fat. If you can t consume dairy or prefer not to, make sure you meet your calcium needs through other foods or supplements. Protein. You need protein in order to maintain your muscles, bones, skin, and every other organ and tissue in your body. Protein also helps you stay satisfied and manage hunger. Not only is protein important in your overall diet, but emerging research suggests that you should have some at all three meals, especially if you are older. However, keep in mind that while it s important to get enough protein, more is not necessarily better!Protein foods are a diverse group, including both animal sources (fish and seafood, meats, poultry, eggs, and dairy) and plant sources (soy products, pulses--that is, beans, lentils, chickpeas, and dry peas--and nuts and seeds). As with any food, quality counts: some protein-rich foods have more health benefits than others. [place] and other oily fish provide heart-healthy omega-3 fatty acids. Pulses and whole or minimally processed soy foods like tofu, tempeh, and edamame offer phytochemicals and fiber. On the other hand, fatty or processed meats come with excess saturated fat and other components that don t support optimal health. Fats and oils. Fat is an essential element of the diet. It s a major source of energy. In addition, the body requires fat to make cell membranes, provide a protective coating for nerves, maintain healthy skin and hair, and perform other vital functions.After some decades of thinking that we needed to limit fat to be healthy, scientists now know that it s not how much fat we eat (within reason), but the quality of the fat. For example, it s crystal clear that we need to avoid artificial trans fats--the hydrogenated vegetable oils that were once used in a variety of processed foods to help keep them from spoiling. Fortunately, those are largely gone from the food supply now, as the result of an FDA ruling in January 2018 banning them from foods sold in [place] grocery stores and restaurants. As for saturated fats--the kind found in animal products like meat and cheese--while limited amounts (less than 10% of daily calories) are fine for most people, they may contribute to a number of health problems, including increased LDL (bad) cholesterol and chronic inflammation, especially when eaten in excess.Most of the fat we eat should be unsaturated. This includes polyunsaturated fats from fatty fish like salmon, walnuts, sunflower seeds, flaxseeds, and some vegetable oils, as well as monounsaturated fats from nuts, peanuts, avocados, olive oil, and canola oil. Unsaturated fats have a number of benefits for health, especially cardiovascular health. A shorthand way of thinking of the different types of fats is this: if they are solid at room temperature, like the marbling in meats, they may lead to stiffer arteries (and therefore high blood pressure) as your body deposits them in arterial linings. If they are liquid at room temperature, like the olive oil you drizzle on your salad, they will help keep arteries more flexible. Nutrition Reminders: NO NAKED CARBS!! Protein >= Carbs for each meal (if you are going to eat 50g carbs for lunch you should eat 50g protein or more). If you do not eat your carbs for lunch you do not get to save them for dinner- you use them or lose them. Balance your Protein between meals. Unless told otherwise your Minimum protein each day is 30grams per meal but don t be afraid to eat more. Focus on WHOLE FOODS if you can as your Gut Microbiome will benefit and you will feel more satisfied - the only caviot to this is protein shakes if needed. Water intake should be a minimum of 64oz per day- but more is better (to an extent) unless you have a medical condition that requires you to keep it to a minimum. Nothing is off limits- this is not about restricting yourself- this about learning what your body can have and still respond well to and learning how to balance food and still feel good. Track your food, weigh your food, measure your portion sizes as most people underestimate their food by approximately 40%. You should be tracking your Carbohydrates and Protein daily. It s ok if you had a bad day- write it down and move on! Weigh yourself daily or at least 5 times per week, it will help to keep you accountable. If you are hungry- think about your stress level, your sleep (did you get 7.5-9hrs?) and your protein consumption- if you did not meet your goals then those could be contributing to your hunger. During weight loss phase it is ok to use two protein shakes per day and eating one meal along with it - studies have shown you will lose more weight and keep it off. Take a multivitamin daily Sit less Move more- Exercise including resistance training is very important for your health and if you are not getting routine exercise right now there will come a point when it will become an important piece of this process. Educational Podcasts: The Dr. Yee Show- Real Conversations about Health and Weight *April 09, 2024, how to determine your weight Gain Pattern to pick a weight loss medication or lifestyle plan *February 20, 2024, NEAT, Non- exercise activity thermogenesis - yes taking the stairs is good for you! *February 06, 2024, What to do when your weight loss plateaus * May 16, 2023 what you need to know about Carbohydrates and Weight *April 25, 2023 Protein why we need it and how to eat more Protein *April 04, 2023 Menopause and Weight Gain- All the Details with Dr. Leslie Nesbitt *March 14, 2023 The Science Behind Ultra Processed Food and Weight Gain *December 27, 2022 Effects of sleep and Stress of Weight and Health with Dr. Niru LopezWithnelli, DO * December 20, 2022 Recognizing and Resolving Emotional Eating with Dr. Jim Obesity: A Disease *December 20, 2022 Episode 80 Clinical conversations: The Role of Physical Activity in Weight Management * April 01, 2023 Episode 84 Clinical Conversations: NAFLD, The [place] Disease of Metabolic Syndrome *March 312019 Episode 20 Article Reviews: The Role Ultra Processed Diets Play in Weight Gain *March 12, 2020 Episode 21 Clinical Conversations: Breaking Weight Plateaus The Obesity Guide Podcast with Augustine Jim MD [employer] Drive, Param Flores MD Conquer Your Weight, Apryl Zendejas MD Docs who lift podcast, Hattie Hendricks and Manpreet Schneider documented in this encounter [facility] 09-28-2024 History of Present illness Narrative Images from the original note were not included. Some documentation from previous visit of 06/25/2024 was copied and pasted, documentation has been reviewed and edited as necessary for today's visit. Patient Summary: Hector is a 49 year old Female who presents for follow-up evaluation of obesity/weight management to treat and prevent related co-morbidities. In our previous visits we have discussed lifestyle intervention including a nutrition recommendations and physical activity optimization. Her last office visit was 3 month ago. Assessment/plan from last visit: - discussed need to keep track of carbs better. Recommend tracking. Recommend adding more vegetables to lunch. Maybe spreading out carbs btwn lunch and dinner? Hard to tell if too many at dinner. Dinner seems to be large meal. -discussed stress and impact on weight and hunger hormones -discussed journaling and vision board with goals - GOAL - wants to be under 200lbs by xmas - continue vit D supplement - Continue protonix for GERD -phentermine >5% TBW loss in initial 3 months of phentermine use qualifying for long-term off label treatment of obesity- refill given - taking topiramate by PCP for migraines - discussed routine exercise and impact on weight and weight maintenance Interval History PT specifies the following items as new or significant updates since the last appointment: - had covid after xmas really bad, problems breathing- then after [place] noticed occasional increases in HR more in the morning. Had appt on 09/03 with PCP- she said something to her regarding symptoms and antidepressants, started new antidepressant - HR can go to 130-150 when walking and she feels it. Stopped taking phentermine and she is still feeling same way. - does not feel as painful with fibromyalgia - no major cravings- still on topiramate 50mg BID- for migraines - still tracking but more stress lately- family members sick so not as strict Weight loss since last vist: 25 lb Total weight lost: 47 lbs - Last Wt 09/28/24 : 91.6 kg (202 lb) 06/25/24 : 102.9 kg (227 lb) 05/28/24 : 106.6 kg (235 lb) 04/10/24 : 112.9 kg (249 lb) Date: 04/10/2024 249 lb BMI: 47.05 5% weight loss = 236 lbs, 10% weight loss = 224 lbs Anti-obesity medications: Phentermine. 37.5 mg Benefit:makes her stop thinking about food, doesn't feel hungry Adverse effects: none Anti-obesity medications: Topiramate. 50 mg bid Benefit:was started for migraines Adverse effects: none AOM Medications: Topiramate by Neurologist Weight promoting medications: Effexor 75mg changed to Desvenlafaxine Previous Diet (initial appointment): Awake - 7:30 B - coffee azerbaijani sweet cream, apple juice (8oz) [place] Cru[place] wrap taco velásquez, watermelon juice (8oz) , oatmeal (packet), toast, blueberries , turkey sausage , hash browns S - fruit L - chipolte bowl chicken w/ guac, apple/pecan salad w/ chicken , chicken wrap, almonds, pretzels,pizza, S - halo oranges D - tilapia, brown rice spag, carrots, ludwin, garlic bread , beats, beans, cucumbers, veggie pizza slices, cheesy bread , cream cheese ragoons S - peach cobbler blizzard sometimes , sweets Fluids: coffee juice, stopped soda, 100 oz water per day Bedtime - 11:30pm Quality of diet: 24hr recall suggests healthy diet. Characterization of diet:Unstructured, unhealthy snacking, and increased consumption of sugar sweetened beverages. Criminal Analyst of impaired eating habits:lack of satiety, emotion, and does go back for seconds- more protein- meat- loves red meat but can't eat after gallbladder Eating Disorder no Cravings: savory- karmen cheese steaks, sometimes sweets Dietary changes: B - Owyn 32g S - L - owyn protein shake, sometimes oikos yogurt, lactate cottage cheese, oikos, apple, orange, S - D - always a meat, spaghetti w/ protein, peas, carrots, broccoli, COD, celery, S - Fluids - water 101 oz per day. Eating 3 meals a day, including breakfast Increasing water intake Controlling portions Increasing protein Reducing sugar-sweetened beverages Reducing carbohydrates Eating less take out/fast food Current Barriers: reduced physical activity Exercise: not structured- but tries to walk up and down driveway stable Stress: yes- parents live with her stable Sleep: 7 hrs, no JOCELYN CrCl cannot be calculated (Unknown ideal weight.). PAST MEDICAL HISTORY Diagnosis Date Acute cholecystitis 12/12/2023 s/p lap td Crohn's disease (HCC) 2000 crohns disease, rectal bleeding resolved after hysterectomy. GI in [place] Depression Dysfunctional uterine bleeding 2006 s/p hysterectomy Dysmenorrhea Eczema Esophageal reflux Gastroesophageal reflux Fatty liver Fibromyalgia Generalized anxiety disorder History of cardiac monitoring 11/23/2023 Patient completed event monitor secondary to palpitations. Underlying sinus rhythm with excellent heart rate variability. Heart rate ranged from 50-140, average heart 75. A total of 74 strips were sent to us to review. No correlation with any arrhythmias. No evidence atrial fibrillation noted. This is a normal monitor. History of cardiovascular stress test 11/17/2020 The patient's resting heart rate was 85 bpm and blood pressure was 112/82 mmHg. The patient exercised according to the Modified Jagdish protocol. Total exercise 6 minutes and 15 seconds. The maximum heart rate was 134 bpm, which is 76% predicted for age. METs achieved was 4.4. The double product achieved was 50260. Peak heart rate was 134 bpm and peak blood pressure was 138/92 mmHg. History of echocardiogram 10/22/2023 LVEF 55-60%. No significant valvular abnormality. History of exercise stress test (without NM imaging) 11/07/2023 No electrocardiographic evidence of ischemia. Resting HR 68 bpm and BP was 116/80 mmHg. Exercised according to the Jagdish protocol. Test was terminated due to shortness of breath and leg fatigue. Total exercise time was 4 minutes and 30 seconds. Maximum HR was 157 bpm, which is 90% of the predicted heart rate for age. History of shingles 08/2023 LUQ, (L) flank, (L) posterior mid back. Lactose intolerance Lichen sclerosus Morbid obesity (HCC) Other acne Acne Recurrent cold sores Scalp psoriasis Vitamin D insufficiency Current Outpatient Medications Medication Sig Dispense Refill Phentermine HCl 37.5 mg tablet Take 1 tablet by mouth daily before breakfast for 90 days. Patient should start on July 17, 2024. 90 tablet 0 EFFEXOR XR 75 mg 24 hr capsule MULTIVITAMIN ORAL Take by mouth. loratadine (CLARITIN) [address] (PROTONIX) 40 mg tablet Take 1 tablet by mouth every afternoon. INV VITAMIN D3 4000 UNIT OR [place] (IRB [id number]) CAPSULE polyethylene glycol 3350 (MIRALAX) 17 gram/dose powder psyllium husk (METAMUCIL) 3.4 gram/5.4 gram powd topiramate (TOPAMAX) 25 mg tablet Take by mouth. One tablet daily for a week; then one tablet twice daily for a week; then one table three times daily for a week; then two tablets twice daily thereafter. (Patient taking differently: 50 mg two times a day. Take by mouth. One tablet daily for a week; then one tablet twice daily for a week; then one table three times daily for a week; then two tablets twice daily thereafter.) 120 tablet 11 No current facility-administered medications for this visit. ROS : having intermittent palpitation and fast heart beat ROS/Fam Hx pertaining to AOMs: GEN: Fatigue:yes CV: h/o palpitations/cardiac arrhythmia, Chest pain: yes- stress test/echo normal- more related to anxiety HTN: no PULM: Asthma:no GI: GERD:yes ; Gallstones:no, had a gallbladder removed ; Fatty liver disease:yes Pancreatitis: no MSK: Joint Pain:yes : Nephrolithiasis: no Symptoms of PCOS: no NEURO: Migraines/DIANE: yes ; H/o seizures: no Glaucoma:no; Cataracts no Symptoms of or History of pseudotumor cerebri:no Family or personal History of MEN2 or Medullary thyroid cancer: yes, mother has thyroid issues. 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 Latest Ref Rng & Units 04/11/2024 CMP Sodium 136 - 144 mmol/L 140 Potassium 3.7 - 5.1 mmol/L 4.1 Chloride 98 - 107 mmol/L 107 CO2 22 - 30 mmol/L 22 Glucose 74 - 99 mg/dL 97 BUN 7 - 21 mg/dL 13 Creatinine 0.58 - 0.96 mg/dL 0.80 EGFR >=60 mL/min/1.73m 92 Protein, Total 6.3 - 8.0 g/dL 6.8 Albumin 3.9 - 4.9 g/dL 3.8 Calcium 8.5 - 10.2 mg/dL 9.0 Bilirubin, Total 0.2 - 1.3 mg/dL 0.2 AST 13 - 35 U/L 21 ALT 7 - 38 U/L 17 Alkaline Phosphatase 34 - 123 U/L 100 Cholesterol, Total (mg/dL) Date Value 12/06/2023 112 03/26/2015 147 Total Cholesterol, Nonfasting (mg/dL) Date Value 11/24/2020 163 HDL Cholesterol (mg/dL) Date Value 12/06/2023 51 03/26/2015 45 HDL Cholesterol, Nonfasting (mg/dL) Date Value 11/24/2020 53 LDL Cholesterol (mg/dL) Date Value 12/06/2023 48 03/26/2015 78 LDL Cholesterol, Nonfasting (mg/dL) Date Value 11/24/2020 90 Triglyceride (mg/dL) Date Value 12/06/2023 63 03/26/2015 118 Triglycerides, Nonfasting (mg/dL) Date Value 11/24/2020 102 Latest Ref Rng & Units 12/16/2023 CBC WBC 3.70 - 11.00 k/uL 6.35 RBC 3.90 - 5.20 m/uL 4.58 Hemoglobin 11.5 - 15.5 g/dL 13.6 Hematocrit 36.0 - 46.0 % 41.1 MCV 80.0 - 100.0 fL 89.7 MCH 26.0 - 34.0 pg 29.7 MCHC 30.5 - 36.0 g/dL 33.1 RDW-CV 11.5 - 15.0 % 12.5 Platelet Count 150 - 400 k/uL 322 MPV 9.0 - 12.7 fL 9.9 Baso% % 0.5 Abs Neut (ANC) 1.45 - 7.50 k/uL 2.98 Abs Lymph 1.00 - 4.00 k/uL 2.65 Abs [place] <0.87 k/uL 0.52 Abs Eosin <0.46 k/uL 0.15 Abs Baso <0.11 k/uL 0.03 NRBC /100 WBC 0.0 Vitamin D 25 Hydroxy Date Value Ref Range Status 04/11/2024 37.2 31.0 - 80.0 ng/mL Final 12/07/2023 24.6 (L) 31.0 - 80.0 ng/mL Final Comment: Classification of 25 [place] Vitamin D status: Deficiency/Insufficiency: < or = 30 ng/ml. Sufficiency/Optimal Levels: 31-80 ng/mL Toxicity: > 100 ng/mL. Test performed by chemiluminescent immunoassay. TSH Date Value 04/11/2024 2.360 mIU/L 10/22/2022 2.580 mIU/L 11/24/2020 2.590 uU/mL 03/26/2015 2.950 uU/mL ) Hemoglobin A1C (%) Date Value 12/06/2023 5.1 10/22/2022 5.3 11/24/2020 5.4 Insulin Date Value Ref Range Status 04/11/2024 12.0 3.0 - 25.0 mU/L Final Assessment/Plan: Hector Leon is a 49 year old yo with Class III obesity who presented today for follow up for supervised weight loss to treat and prevent related co-morbidities. (E78.2) Mixed hyperlipidemia (primary encounter diagnosis) (E55.9) Vitamin D deficiency (K76.0) Fatty liver (K21.9) Gastroesophageal reflux disease without esophagitis (M79.7) Fibromyalgia (E66.813, Z68.42, E66.01) Class 3 severe obesity due to excess calories with serious comorbidity and body mass index (BMI) of 45.0 to 49.9 in adult (HCC) - stop phentermine (pt stopped yesterday when contacted office) - recommend EKG and HOLTER monitor- pt states PCP was willing to get this done- she will contact her. Pt will send results -discussed stress and impact on weight and hunger hormones -discussed if cleared by cardiology- may go back to phentermine or consider shorter acting diethylpropion - continue vit D supplement - Continue protonix for GERD -phentermine >5% TBW loss in initial 3 months of phentermine use qualifying for long-term off label treatment of obesity - taking topiramate by PCP for migraines - discussed routine exercise and impact on weight and weight maintenance - discussed increasing protein (sebastien while off phentermine to avoid cravings) - FITTE rx given - discussed tachycardia likely from Covid - An overall goal of 150-200 minutes per week of exercise has been effective in weight loss and maintenance. Prescription instructions reviewed with patient as applicable. Potential red flag symptoms discussed with the patient. Reviewed appropriate action plan to take if red flag symptoms occur. Patient agreeable to treatment plan. RTO 3 months- will communicate via [employer] and [employer] once work up for tachycardia complete. I spent a total of 42 minutes on the date of the service which included preparing to see the patient, [id number] patient care, completing clinical documentation, obtaining and/or reviewing separately obtained history, performing a medically appropriate examination, counseling and educating the patient/family/caregiver, and ordering medications, tests, or procedures. Fallon Sullivan MD, FACOG, DABANNABEL documented in this encounter [facility] 09-28-2024 Note HNO ID: [id number] Author: FALLON LARSON MD Service: ? Author Type: Physician Type: Progress Notes Filed: 09/28/2024 12:59 Note Text: Some documentation from previous visit of 06/25/2024 was copied and pasted, documentation has been reviewed and edited as necessary for today's visit. Patient Summary: Hector is a 49 year old Female who presents for follow-up evaluation of obesity/weight management to treat and prevent related co-morbidities. In our previous visits we have discussed lifestyle intervention including a nutrition recommendations and physical activity optimization. Her last office visit was 3 month ago. Assessment/plan from last visit: - discussed need to keep track of carbs better. Recommend tracking. Recommend adding more vegetables to lunch. Maybe spreading out carbs btwn lunch and dinner? Hard to tell if too many at dinner. Dinner seems to be large meal. -discussed stress and impact on weight and hunger hormones -discussed journaling and vision board with goals - GOAL - wants to be under 200lbs by xmas - continue vit D supplement - Continue protonix for GERD -phentermine >5% TBW loss in initial 3 months of phentermine use qualifying for long-term off label treatment of obesity- refill given - taking topiramate by PCP for migraines - discussed routine exercise and impact on weight and weight maintenance Interval History PT specifies the following items as new or significant updates since the last appointment: - had covid after xmas really bad, problems breathing- then after [place] noticed occasional increases in HR more in the morning. Had appt on 09/03 with PCP- she said something to her regarding symptoms and antidepressants, started new antidepressant - HR can go to 130-150 when walking and she feels it. Stopped taking phentermine and she is still feeling same way. - does not feel as painful with fibromyalgia - no major cravings- still on topiramate 50mg BID- for migraines - still tracking but more stress lately- family members sick so not as strict Weight loss since last vist: 25 lb Total weight lost: 47 lbs - Last Wt 09/28/24 : 91.6 kg (202 lb) 06/25/24 : 102.9 kg (227 lb) 05/28/24 : 106.6 kg (235 lb) 04/10/24 : 112.9 kg (249 lb) Date: 04/10/2024 249 lb BMI: 47.05 5% weight loss = 236 lbs, 10% weight loss = 224 lbs Anti-obesity medications: Phentermine. 37.5 mg Benefit:makes her stop thinking about food, doesn't feel hungry Adverse effects: none Anti-obesity medications: Topiramate. 50 mg bid Benefit:was started for migraines Adverse effects: none AOM Medications: Topiramate by Neurologist Weight promoting medications: Effexor 75mg changed to Desvenlafaxine Previous Diet (initial appointment): Awake - 7:30 B - coffee azerbaijani sweet cream, apple juice (8oz) [place] Cru[place] wrap taco velásquez, watermelon juice (8oz) , oatmeal (packet), toast, blueberries , turkey sausage , hash browns S - fruit L - chipolte bowl chicken w/ guac, apple/pecan salad w/ chicken , chicken wrap, almonds, pretzels,pizza, S - halo oranges D - tilapia, brown rice spag, carrots, ludwin, garlic bread , beats, beans, cucumbers, veggie pizza slices, cheesy bread , cream cheese ragoons S - peach cobbler blizzard sometimes , sweets Fluids: coffee juice, stopped soda, 100 oz water per day Bedtime - 11:30pm Quality of diet: 24hr recall suggests healthy diet. Characterization of diet:Unstructured, unhealthy snacking, and increased consumption of sugar sweetened beverages. Criminal Analyst of impaired eating habits:lack of satiety, emotion, and does go back for seconds- more protein- meat- loves red meat but can't eat after gallbladder Eating Disorder no Cravings: savory- karmen cheese steaks, sometimes sweets Dietary changes: B - Owyn 32g S - L - owyn protein shake, sometimes oikos yogurt, lactate cottage cheese, oikos, apple, orange, S - D - always a meat, spaghetti w/ protein, peas, carrots, broccoli, COD, celery, S - Fluids - water 101 oz per day. Eating 3 meals a day, including breakfast Increasing water intake Controlling portions Increasing protein Reducing sugar-sweetened beverages Reducing carbohydrates Eating less take out/fast food Current Barriers: reduced physical activity Exercise: not structured- but tries to walk up and down driveway stable Stress: yes- parents live with her stable Sleep: 7 hrs, no JOCELYN CrCl cannot be calculated (Unknown ideal weight.). PAST MEDICAL HISTORY Diagnosis Date Acute cholecystitis 12/12/2023 s/p lap td Crohn's disease (HCC) 2000 crohns disease, rectal bleeding resolved after hysterectomy. GI in [place] Depression Dysfunctional uterine bleeding 2006 s/p hysterectomy Dysmenorrhea Eczema Esophageal reflux Gastroesophageal reflux Fatty liver Fibromyalgia Generalized anxiety disorder History of cardiac monitoring 11/23/2023 Patient completed event monito (more content not included)... [facility] 09-26-2024 Telephone encounter Note Patient notified. Nadia Farrar RN [facility] 09-26-2024 Miscellaneous Notes Patient notified. Nadia Farrar RN She should stop the phentermine. Patient calling regarding phentermine. Her heartrate has been elevated previously just in the mornings and now it is typically all day day. It ranges 130-150s all day and her PCP feels it could be related to her phentermine. They advised her to call DM for further instructions. She has her next weight mgmt appointment scheduled for this Thursday 09/28, but PCP told her he feels she she stop it before then. Advised if she does not hear back from us today to not take phentermine tomorrow then if she was advised that. Please advise. Abeba Horton RN documented in this encounter [facility] 09-26-2024 Telephone encounter Note She should stop the phentermine. [facility] 09-26-2024 Telephone encounter Note Patient calling regarding phentermine. Her heartrate has been elevated previously just in the mornings and now it is typically all day day. It ranges 130-150s all day and her PCP feels it could be related to her phentermine. They advised her to call DM for further instructions. She has her next weight mgmt appointment scheduled for this Thursday 09/28, but PCP told her he feels she she stop it before then. Advised if she does not hear back from us today to not take phentermine tomorrow then if she was advised that. Please advise. Abeba Horton RN [facility] 08-17-2024 History of Present illness Narrative Medical Genetics Initial Evaluation Patient: Hector Leon Date of : 1975 Consultation requested by: Abiodun Li Date of visit: 08/17/2024 I have communicated my name and active licensure. The patient's identity and physical location were verified at the time of this visit. Either the patient or their legal hospital sales representative has been informed of the risks and benefits of -- and alternatives to -- treatment through a remote evaluation and consents to proceed with the evaluation remotely. Note: - The patient was also seen by Yaneth Montenegro MS, CGC in a genetic counseling encounter today. Please see the note for further details. 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 Ms. Leon came to medical attention as a teenager when she developed headaches that almost always were on the left - around the eye or behind her ear/neck. Over the past year, she has noticed her left eye would twitch and now she feels a drooping and a heavy sensation on her left side of her face. This first occurred after she had shingles and at first these symptoms immediately followed a headache (she thinks) and lasted 45 minutes but now she thinks weakness is constant but worsens with headache. She reports difficulty clarifying the pattern of when symptoms are present and are not. She also said her left salivary glands do not work. She also reports sometimes seeing colored circles around lights that originally happened only when her eyes were closed but now when open as well. She reports difficulty with speech, which she attributes to her facial weakness. She also reports a little bit of double vision. Another concern of hers is that recently as headaches are resolving she has episodes where she is SOB/gasping and nauseous without vomiting. She said she feels completely drained, weak and dazed after these episodes. This seems to be worsening She saw cerebrovascular neurology - brain MRI and head/neck vessels unremarkable - he referred to general neurology for seizures vs complex migraines vs FND. EEG normal but no symptoms during study Other concerns: - high frequency tinnitus - bilateral, constant and doesn't change with headaches - irritable bowel disease (used to think it was crohn's but that dx taken away) She denies paresthesias or gait abnormalities. , , and Developmental History: Normal per patient report Past Medical History: PAST MEDICAL HISTORY Diagnosis Date Acute cholecystitis 12/12/2023 s/p lap td Crohn's disease (HCC) 2000 crohns disease, rectal bleeding resolved after hysterectomy. GI in [place] Depression Dysfunctional uterine bleeding 2006 s/p hysterectomy Dysmenorrhea Eczema Esophageal reflux Gastroesophageal reflux Fatty liver Fibromyalgia Generalized anxiety disorder History of cardiac monitoring 11/23/2023 Patient completed event monitor secondary to palpitations. Underlying sinus rhythm with excellent heart rate variability. Heart rate ranged from 50-140, average heart 75. A total of 74 strips were sent to us to review. No correlation with any arrhythmias. No evidence atrial fibrillation noted. This is a normal monitor. History of cardiovascular stress test 11/17/2020 The patient's resting heart rate was 85 bpm and blood pressure was 112/82 mmHg. The patient exercised according to the Modified Jagdish protocol. Total exercise 6 minutes and 15 seconds. The maximum heart rate was 134 bpm, which is 76% predicted for age. METs achieved was 4.4. The double product achieved was 56891. Peak heart rate was 134 bpm and peak blood pressure was 138/92 mmHg. History of echocardiogram 10/22/2023 LVEF 55-60%. No significant valvular abnormality. History of exercise stress test (without NM imaging) 11/07/2023 No electrocardiographic evidence of ischemia. Resting HR 68 bpm and BP was 116/80 mmHg. Exercised according to the Jagdish protocol. Test was terminated due to shortness of breath and leg fatigue. Total exercise time was 4 minutes and 30 seconds. Maximum HR was 157 bpm, which is 90% of the predicted heart rate for age. History of shingles 08/2023 LUQ, (L) flank, (L) posterior mid back. Lactose intolerance Lichen sclerosus Morbid obesity (HCC) Other acne Acne Recurrent cold sores Scalp psoriasis Vitamin D insufficiency Problem List: ACTIVE PROBLEM LIST Lichen Sclerosus Genital Atrophy of Female Fibromyalgia Gastroesophageal Reflux Disease Without Esophagitis Other Constipation Lactose Intolerance Generalized Anxiety Disorder Class 3 Severe Obesity Due to Excess Calories With Serious Comorbidity and Body Mass Index (Bmi) of 45.0 to 49.9 in Adult (Hcc) Recurrent Cold Sores Scalp Psoriasis Vitamin D Insufficiency History of Cardiovascular Stress Test Mixed Hyperlipidemia Transient Neurological Symptoms Fatty Liver Past Surgical History: PAST SURGICAL HISTORY Procedure Laterality Date COLONOSCOPY 2009 multiple for crohns disease. [facility]. Benign polyp COLONOSCOPY 09/21/2005 active colitis at distal transverse colon COLONOSCOPY around 2007. [place]. Normal. COLONOSCOPY 01/15/2004 severe acute and chronic colitis, sml internal hemorrhoids COLONOSCOPY 03/12/2003 hyperplastic polyp x2, colitis EGD 09/21/2005 chronic reflux like symptoms, normal looking distal esophagus LAPAROSCOPY SURG CHOLECYSTECTOMY 12/13/2023 LIG/TRNSXJ FLP TUBE ABDL/VAG APPR UNI/BI Tubal ligation PAST SURGICAL HISTORY OF wisdom teeth PAST SURGICAL HISTORY OF 2007 hysterectomy lavhbso PAST SURGICAL HISTORY OF tonsilectomy No difficulty with anesthesia Medications: Current Outpatient Medications: Phentermine HCl 37.5 mg tablet EFFEXOR XR 75 mg 24 hr capsule MULTIVITAMIN ORAL loratadine (CLARITIN) [address] (PROTONIX) 40 mg tablet INV VITAMIN D3 4000 UNIT OR [place] (IRB [id number]) CAPSULE polyethylene glycol 3350 (MIRALAX) 17 gram/dose powder psyllium husk (METAMUCIL) 3.4 gram/5.4 gram powd topiramate (TOPAMAX) 25 mg tablet Allergies: ALLERGIES Allergen Reactions Banana GI Upset Eggs [Egg] GI Upset Lactose Intolerance Prednisone Other: See Comments Black stools Diet: Lactose intolerant. Changed diet recently. Working on weight loss. Lost about 42 lbs - down to 209 lbs. Goal to get down to 150 lbs. Has plant based protein drinks. Hearing/Vision: Hearing: Audiology 07/25/2019 - Hearing within normal limits sloping to high frequency Sensorineural hearing loss. Reports tinnitus in both ears. Vision: Glasses. Sees Dr. Reyna. Social History: Lives in [place], [place] with her and 2 children. 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 The pedigree will be scanned into [employer]. This information was reviewed with the family and modified as necessary; refer to the genetic counseling encounter and formal pedigree for other details on the family history. Pertinent family history: - Patient's ethnicity: Maternal - unknown with some ; Paternal - with some -Sudanese. - Parental consanguinity: No Children and grandchildren: - Son, b. 1995 - healthy with no children - Daughter, 27 yo - type 1 diabetes dx 2 years after bariatric surgery, Migraines - ?aura, depression/anxiety/PTSD and ?schizophrenia. No children - Son, 23 yo - scoliosis (14 degrees) - no children. - Adopted daughter, 8 yo ('s biological half-sister) - healthy Full siblings and their children: Brother, 44 yo - migraines with overall weakness - eye, face and hands twitch unilaterally. Also has RA Maternal half siblings and their children: None Paternal half siblings and their children: None Parental losses: None Mother: b. 1956 - migraines and overall weakness. One eye twitches. Maternal relatives: - 6 aunts/uncles - ALL have migraines and one also has schizophrenia. Father: b. 1953. Recent memory concerns. Paternal relatives: no reported problems. Some elements of the above history were excerpted from the genetic counseling encounter. These were verified and updated by myself. Growth/Anthropometrics: Growth charts/anthropometrics reviewed and remarkable for elevated BM (42 at last in-person visit) Physical Examination: Limited virtual exam Constitutional: In no acute distress, appears stated age, non-dysmorphic Head and Face: Grossly normocephalic Eyes: Normal in position and placement, EOMI; lids, lashes, and brows normal Ears: Well-formed, normal in position and placement, canals patent Nose: Nares patent Mouth/Throat: Lips, philtrum, dentition normal Neck: No pits, tags, fissures Chest: Symmetric Respiratory: No increased work of breathing Skin, Hair and Nails: No visible neurocutaneous stigmata Neurologic: Mental status appropriate for age; normal gait; mild facial droop; able to puff out cheeks and move forehead appropriately Psychiatric: Appearance, mood, engagement, speech, affect normal Pertinent Laboratory Results: Imaging: Echo (10/22/2023): The estimated ejection fraction is 55-60%. Normal systolic function. MRI Brain (10/23/2023): Unremarkable examination. No evidence for acute infarct or other significant signal abnormality in the brain. MRA Brain/Carotid (11/30/2023): No intracranial or extracranial arterial large vessel occlusion or significant stenosis. Procedures: Holter Monitor (12/24/2023): Summary: Patient completed event monitor secondary to palpations. Underlying sinus rhythm with excellent heart rate variability. Heart rate ranged from 50-140, average heart 75. A total of 74 strips were sent to us to review. No correlation with any arrhythmias. No evidence atrial fibrillation noted. This is a normal monitor. Routine EEG (01/30/2024): This EEG is within normal limits. No epileptiform discharges or EEG seizures were seen during this recording Assessment: Hector Leon is a 49 year old female with migraine with aura (visual symptoms and transient motor weakness). EEG and brain MRI were normal. The presence of migraine with aura and motor weakness is concerning for hemiplegic migraine. Motor weakness in hemiplegic migraine is typically fully reversible after a few days, but can occur for longer periods. Thus, genetic testing is indicated to clarify the diagnosis. Determining a genetic cause can help to confirm the diagnosis, prevent unnecessary additional workup, provide information on the best medications to use, identify associated features to monitor for (such as seizures, paroxysmal movement disorders), provide access to disorder-specific resources, and offer information about the risk of recurrence for family members. Genotype-phenotype correlations can provide additional information which can provide very specific information on symptoms to expect and assist in appropriate monitoring and care. Recommendations: [facility] Familial Hemiplegic Migraine Panel I spent a total of 60 minutes on the date of the service which included preparing to see the patient, [id number] patient care, completing clinical documentation, obtaining and/or reviewing separately obtained history, performing a medically appropriate examination, counseling and educating the patient/family/caregiver, and ordering medications, tests, or procedures. Dee Cowart DO [facility] [place] [address] Appointments: or [facility] CC: Yaneth Montenegro MS, Certified Genetic Counselor My final recommendations will be communicated back to the requesting physician by way of shared medical record or letter to requesting physician via [place] mail. CC: Abiodun Li [id number] [id number] [address] [place] [address] documented in this encounter [facility] 08-17-2024 Note HNO ID: [id number] Author: DEE COWART DO Service: ? Author Type: Physician Type: Progress Notes Filed: 08/26/2024 11:57 Note Text: Medical Genetics Initial Evaluation Patient: Hector Leon Date of : 1975 Consultation requested by: Abiodun Li Date of visit: 08/17/2024 I have communicated my name and active licensure. The patient's identity and physical location were verified at the time of this visit. Either the patient or their legal hospital sales representative has been informed of the risks and benefits of -- and alternatives to -- treatment through a remote evaluation and consents to proceed with the evaluation remotely. Note: - The patient was also seen by Yaneth Montenegro MS, CGC in a genetic counseling encounter today. Please see the note for further details. 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 Ms. Leon came to medical attention as a teenager when she developed headaches that almost always were on the left - around the eye or behind her ear/neck. Over the past year, she has noticed her left eye would twitch and now she feels a drooping and a heavy sensation on her left side of her face. This first occurred after she had shingles and at first these symptoms immediately followed a headache (she thinks) and lasted 45 minutes but now she thinks weakness is constant but worsens with headache. She reports difficulty clarifying the pattern of when symptoms are present and are not. She also said her left salivary glands do not work. She also reports sometimes seeing colored circles around lights that originally happened only when her eyes were closed but now when open as well. She reports difficulty with speech, which she attributes to her facial weakness. She also reports a little bit of double vision. Another concern of hers is that recently as headaches are resolving she has episodes where she is SOB/gasping and nauseous without vomiting. She said she feels completely drained, weak and dazed after these episodes. This seems to be worsening She saw cerebrovascular neurology - brain MRI and head/neck vessels unremarkable - he referred to general neurology for seizures vs complex migraines vs FND. EEG normal but no symptoms during study Other concerns: - high frequency tinnitus - bilateral, constant and doesn't change with headaches - irritable bowel disease (used to think it was crohn's but that dx taken away) She denies paresthesias or gait abnormalities. , , and Developmental History: Normal per patient report Past Medical History: PAST MEDICAL HISTORY Diagnosis Date Acute cholecystitis 12/12/2023 s/p lap td Crohn's disease (HCC) 2000 crohns disease, rectal bleeding resolved after hysterectomy. GI in [place] Depression Dysfunctional uterine bleeding 2006 s/p hysterectomy Dysmenorrhea Eczema Esophageal reflux Gastroesophageal reflux Fatty liver Fibromyalgia Generalized anxiety disorder History of cardiac monitoring 11/23/2023 Patient completed event monitor secondary to palpitations. Underlying sinus rhythm with excellent heart rate variability. Heart rate ranged from 50-140, average heart 75. A total of 74 strips were sent to us to review. No correlation with any arrhythmias. No evidence atrial fibrillation noted. This is a normal monitor. History of cardiovascular stress test 11/17/2020 The patient's resting heart rate was 85 bpm and blood pressure was 112/82 mmHg. The patient exercised according to the Modified Jagdish protocol. Total exercise 6 minutes and 15 seconds. The maximum heart rate was 134 bpm, which is 76% predicted for age. METs achieved was 4.4. The double product achieved was [address]. Peak heart rate was 134 bpm and peak blood pressure was 138/92 mmHg. History of echocardiogram 10/22/2023 LVEF 55-60%. No significant valvular abnormality. History of exercise stress test (without NM imaging) 11/07/2023 No electrocardiographic evidence of ischemia. Resting HR 68 bpm and BP was 116/80 mmHg. Exercised according to the Jagdish protocol. Test was terminated due to shortness of breath and leg fatigue. Total exercise time was 4 minutes and 30 seconds. Maximum HR was 157 bpm, which is 90% of the predicted heart rate for age. History of shingles 08/2023 LUQ, (L) flank, (L) posterior mid back. Lactose intolerance Lichen sclerosus Morbid obesity (HCC) Other acne Acne Recurrent cold sores Scalp psoriasis Vitamin D insufficiency Problem List: ACTIVE PROBLEM LIST Lichen Sclerosus Genital Atrophy of Female Fibromyalgia Gastroesophageal Reflux Disease Without Esophagitis Other Constipation Lactose Intolerance Generali (more content not included)... [facility] 08-17-2024 History of Present illness Narrative SERVICE DATE: 08/17/24 SERVICE TIME: 8:30 am Patient Name and confirmed at initiation of visit Dr. Abiodun Li requested a genetic consultation for Hector Leon, a 49 year old female, for discussion of her personal history of hemiplegic migraines. Prior to the visit, the genetic counselor reviewed records in the patient's EMR including, but not limited to, available clinic notes, physician consultations, laboratory tests, imaging reports, cardiac studies, and other investigations and evaluations. The genetic counselor also reviewed the case with Dr. Cowart as needed prior to seeing the patient. Today's appointment was completed as a virtual visit. I have communicated my name and active licensure. The patient's identity and physical location were verified at the time of this visit. Either the patient or their legal hospital sales representative has been informed of the risks and benefits of -- and alternatives to -- treatment through a remote evaluation and consents to proceed with the evaluation remotely. The patient attended today's appointment alone. HISTORY OF PRESENT CONDITION: Ms. Leon came to medical attention as a teenager when she developed headaches that almost always were on the left - around the eye or behind her ear/neck. Over the past year, she has noticed her left eye would twitch and now she feels a drooping and a heavy sensation on her left side of her face. This first occurred after she had Shingles and at first these symptoms immediately followed a headache (she thinks) and lasted 45 minutes but now she thinks weakness is constant but worsens with headache. She also said her left salivary glands do not work. She also reports sometimes seeing colored circles around lights that originally happened only when her eyes were closed but now when open as well. Another concern of hers is that recently as headaches are resolving she has episodes where she is SOB/gasping and nauseous without vomiting. She said she feels completely drained, weak and dazed after these episodes. This seems to be worsening She saw cerebrovascular neurology - brain MRI and head/neck vessels unremarkable - he referred to general neurology for seizures vs complex migraines vs FND. EEG normal but no symptoms during study Other concerns: - high frequency tinnitus - bilateral, constant and doesn't change with headaches - irritable bowel disease (used to think it was crohn's but that dx taken away) Neurology - migraines with complex aura and visual aura. Also working her up for Idiopathic intracranial hypertension. Concern for familial hemigplegic migraines since her daughter also has migraines - referred to genetics. PREVIOUS GENETIC TESTING: none //DEVELOPMENTAL HISTORIES: Normal by patient report Ms. Leon was seen in conjunction with Dr. Cowart and additional history gathered by this genetic counselor is available in her note. PERTINENT PAST MEDICAL AND SURGICAL HISTORY INCLUDES: PAST MEDICAL HISTORY Diagnosis Date Acute cholecystitis 12/12/2023 s/p lap td Crohn's disease (HCC) 2000 crohns disease, rectal bleeding resolved after hysterectomy. GI in [place] Depression Dysfunctional uterine bleeding 2006 s/p hysterectomy Dysmenorrhea Eczema Esophageal reflux Gastroesophageal reflux Fatty liver Fibromyalgia Generalized anxiety disorder History of cardiac monitoring 11/23/2023 Patient completed event monitor secondary to palpitations. Underlying sinus rhythm with excellent heart rate variability. Heart rate ranged from 50-140, average heart 75. A total of 74 strips were sent to us to review. No correlation with any arrhythmias. No evidence atrial fibrillation noted. This is a normal monitor. History of cardiovascular stress test 11/17/2020 The patient's resting heart rate was 85 bpm and blood pressure was 112/82 mmHg. The patient exercised according to the Modified Jagdish protocol. Total exercise 6 minutes and 15 seconds. The maximum heart rate was 134 bpm, which is 76% predicted for age. METs achieved was 4.4. The double product achieved was 85531. Peak heart rate was 134 bpm and peak blood pressure was 138/92 mmHg. History of echocardiogram 10/22/2023 LVEF 55-60%. No significant valvular abnormality. History of exercise stress test (without NM imaging) 11/07/2023 No electrocardiographic evidence of ischemia. Resting HR 68 bpm and BP was 116/80 mmHg. Exercised according to the Jagdish protocol. Test was terminated due to shortness of breath and leg fatigue. Total exercise time was 4 minutes and 30 seconds. Maximum HR was 157 bpm, which is 90% of the predicted heart rate for age. History of shingles 08/2023 LUQ, (L) flank, (L) posterior mid back. Lactose intolerance Lichen sclerosus Morbid obesity (HCC) Other acne Acne Recurrent cold sores Scalp psoriasis Vitamin D insufficiency PAST SURGICAL HISTORY Procedure Laterality Date COLONOSCOPY 2009 multiple for crohns disease. [employer]. Benign polyp COLONOSCOPY 09/21/2005 active colitis at distal transverse colon COLONOSCOPY around 2007. [place]. Normal. COLONOSCOPY 01/15/2004 severe acute and chronic colitis, sml internal hemorrhoids COLONOSCOPY 03/12/2003 hyperplastic polyp x2, colitis EGD 09/21/2005 chronic reflux like symptoms, normal looking distal esophagus LAPAROSCOPY SURG CHOLECYSTECTOMY 12/13/2023 LIG/TRNSXJ FLP TUBE ABDL/VAG APPR UNI/BI Tubal ligation PAST SURGICAL HISTORY OF wisdom teeth PAST SURGICAL HISTORY OF 2007 hysterectomy lavhbso PAST SURGICAL HISTORY OF tonsilectomy SOCIAL HISTORY: Lives in [place], [place] with her and 2 children. 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 - Parental consanguinity: No A 3 generation pedigree was collected and will be scanned below. Pertinent findings are noted. Children and grandchildren: - Son, b. 1995 - healthy with no children - Daughter, 27 yo - type 1 diabetes dx 2 years after bariatric surgery, Migraines - ?aura, depression/anxiety/PTSD and ?schizophrenia. No children - Son, 23 yo - scoliosis (14 degrees) - no children. - Adopted daughter, 8 yo ('s biological half-sister) - healthy Full siblings and their children: Brother, 44 yo - migraines with overall weakness - eye, face and hands twitch unilaterally. Also has RA Maternal half siblings and their children: None Paternal half siblings and their children: None Parental losses: None Mother: b. 1956 - migraines and overall weakness. One eye twitches. Maternal relatives: - 6 aunts/uncles - ALL have migraines and one also has schizophrenia. Father: . 1953. Recent memory concerns. Paternal relatives: no reported problems. The remainder of Ms. Leon's reported family history is negative for known or suspected genetic disease, early-onset common conditions, defects, developmental delay/intellectual disability, infertility, recurrent loss, and unexplained infant . GENETIC COUNSELING RISK ASSESSMENT AND DISCUSSION: Hector Leon is a 49 year old female with a history of migraines and weakness as above with a family history of the same. Dr. Cowart's physical examination and assessment, as well as medical decision making and management recommendations, will be documented in her note from today's visit. Dr. Cowart, based on symptoms and family history, is recommending genetic testing for familial hemiplegic migraines. We reviewed common symptoms and typical autosomal dominant inheritance of hereditary forms of hemiplegic migraines. We discussed benefits/limitations/risks of genetic testing in detail including the fact that negative testing does not rule out a genetic disorder and the possibility of finding variant(s) of uncertain significance. FOLLOW-UP PLAN per Dr. Cowart: 1. [facility] - pt would like formal preauthorization as she cannot afford much as far as test cost. She thinks insurance might be changing at the beginning of the year. She would like me to reach out in early August to determine if insurance has changed at which time I can start a pre-auth for the panel 2. See Dr. Cowart's note for any additional recommendations. The patient was seen for a total of 25 minutes, greater than 50% of which was spent [id number] counseling. This plan is being carried out per Dr. Cowart's recommendations and under her oversight The results of this consult will be communicated with the referring provider and PCP. Clinic note will be available to the patient via [employer]. SIGNATURE: Yaneth Montenegro MS, [facility] Licensed Genetic Counselor EPIC CC: Dr. Abiodun Cowart documented in this encounter [facility] 08-17-2024 Note HNO ID: [id number] Author: YANETH MONTENEGRO LGC Service: ? Author Type: Genetic Counselor Type: Progress Notes Filed: 09/28/2024 11:48 Note Text: SERVICE DATE: 08/17/24 SERVICE TIME: 8:30 am Patient Name and confirmed at initiation of visit Dr. Abiodun Li requested a genetic consultation for Hector Leon, a 49 year old female, for discussion of her personal history of hemiplegic migraines. Prior to the visit, the genetic counselor reviewed records in the patient's EMR including, but not limited to, available clinic notes, physician consultations, laboratory tests, imaging reports, cardiac studies, and other investigations and evaluations. The genetic counselor also reviewed the case with Dr. Cowart as needed prior to seeing the patient. Today's appointment was completed as a virtual visit. I have communicated my name and active licensure. The patient's identity and physical location were verified at the time of this visit. Either the patient or their legal hospital sales representative has been informed of the risks and benefits of -- and alternatives to -- treatment through a remote evaluation and consents to proceed with the evaluation remotely. The patient attended today's appointment alone. HISTORY OF PRESENT CONDITION: Ms. Leon came to medical attention as a teenager when she developed headaches that almost always were on the left - around the eye or behind her ear/neck. Over the past year, she has noticed her left eye would twitch and now she feels a drooping and a heavy sensation on her left side of her face. This first occurred after she had Shingles and at first these symptoms immediately followed a headache (she thinks) and lasted 45 minutes but now she thinks weakness is constant but worsens with headache. She also said her left salivary glands do not work. She also reports sometimes seeing colored circles around lights that originally happened only when her eyes were closed but now when open as well. Another concern of hers is that recently as headaches are resolving she has episodes where she is SOB/gasping and nauseous without vomiting. She said she feels completely drained, weak and dazed after these episodes. This seems to be worsening She saw cerebrovascular neurology - brain MRI and head/neck vessels unremarkable - he referred to general neurology for seizures vs complex migraines vs FND. EEG normal but no symptoms during study Other concerns: - high frequency tinnitus - bilateral, constant and doesn't change with headaches - irritable bowel disease (used to think it was crohn's but that dx taken away) Neurology - migraines with complex aura and visual aura. Also working her up for Idiopathic intracranial hypertension. Concern for familial hemigplegic migraines since her daughter also has migraines - referred to genetics. PREVIOUS GENETIC TESTING: none //DEVELOPMENTAL HISTORIES: Normal by patient report Ms. Leon was seen in conjunction with Dr. Cowart and additional history gathered by this genetic counselor is available in her note. PERTINENT PAST MEDICAL AND SURGICAL HISTORY INCLUDES: PAST MEDICAL HISTORY Diagnosis Date Acute cholecystitis 12/12/2023 s/p lap td Crohn's disease (HCC) 2000 crohns disease, rectal bleeding resolved after hysterectomy. GI in [facility] Dysfunctional uterine bleeding 2006 s/p hysterectomy Dysmenorrhea Eczema Esophageal reflux Gastroesophageal reflux Fatty liver Fibromyalgia Generalized anxiety disorder History of cardiac monitoring 11/23/2023 Patient completed event monitor secondary to palpitations. Underlying sinus rhythm with excellent heart rate variability. Heart rate ranged from 50-140, average heart 75. A total of 74 strips were sent to us to review. No correlation with any arrhythmias. No evidence atrial fibrillation noted. This is a normal monitor. History of cardiovascular stress test 11/17/2020 The patient's resting heart rate was 85 bpm and blood pressure was 112/82 mmHg. The patient exercised according to the Modified Jagdish protocol. Total exercise 6 minutes and 15 seconds. The maximum heart rate was 134 bpm, which is 76% predicted for age. METs achieved was 4.4. The double product achieved was 53[address]. Peak heart rate was 134 bpm and peak blood pressure was 138/92 mmHg. History of echocardiogram 10/22/2023 LVEF 55-60%. No significant valvular abnormality. History of exercise stress test (without NM imaging) 11/07/2023 No electrocardiographic evidence of ischemia. Resting HR 68 bpm and BP was 116/80 mmHg. Exercised according to the Jagdish protocol. Test was terminated due to shortness of breath and leg fatigue. Total exercise time was 4 minutes and 30 seconds. Maximum HR was 157 bpm, which is 90% of the predicted heart rate for age. History of shingles 08/2023 LUQ, (L) flank, (L) posterior mid back. Lactose intolerance Lichen scleros (more content not included)... [facility] 08-15-2024 Note Patient Outreach (IN [facility]) HECTOR LEON ([id number]) 1975 F [place] Date Time Provider Department 08/15/24 MANDA MERCADO During your visit today, we recorded the following information about you: Allergies As of Date: 08/15/2024 Noted Allergy Reaction BANANA 02/21/2012 8 - GI Upset EGGS (EGG) 02/21/2012 8 - GI Upset LACTOSE 02/21/2012 5 - Intolerance PREDNISONE 06/28/2019 14 - Other: See Comments Comments: Black stools Date Reviewed: 06/25/2024 Reviewed by: Sofi Goldstein MA - Fully Assessed Visit Diagnosis:Encounter for screening mammogram for breast cancer [Z12.31] Order(s):MONY SCREENING W ESE [[id number]] Order #: [id number] FUTURE Prescriptions as of 08/20/2024 - Phentermine HCl 37.5 mg tablet Take 1 tablet by mouth daily before breakfast for 90 days. Patient should start on July 17, 2024. - EFFEXOR XR 75 mg 24 hr capsule - MULTIVITAMIN ORAL Take by mouth. - loratadine (CLARITIN) 10 mg tablet - pantoprazole DR (PROTONIX) 40 mg tablet Take 1 tablet by mouth every afternoon. - INV VITAMIN D3 4000 UNIT OR [place] (IRB [id number]) CAPSULE - polyethylene glycol 3350 (MIRALAX) 17 gram/dose powder - psyllium husk (METAMUCIL) 3.4 gram/5.4 gram powd - topiramate (TOPAMAX) 25 mg tablet Take by mouth. One tablet daily for a week; then one tablet twice daily for a week; then one table three times daily for a week; then two tablets twice daily thereafter. 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] 03/23/2012 Crohn's disease (HCC) [K50.90] 08/29/2000 07/03/2019 Fibromyalgia [M79.7] Gastroesophageal reflux disease without esophag* Other constipation [K59.09] 07/03/2019 Lactose intolerance [E73.9] 07/03/2019 Generalized anxiety disorder [F41.1] Class 3 severe obesity due to excess calories w*10/22/2022 Recurrent cold sores [B00.1] 10/22/2022 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] 10/22/2022 Vitamin D insufficiency [E55.9] 10/25/2022 History of cardiovascular stress test [Z92.89] 11/07/2023 Mixed hyperlipidemia [E78.2] 11/23/2023 Transient neurological symptoms [R29.818] 12/02/2023 Fatty liver [K76.0] 12/16/2023 Encounter Status:Closed by ADRIENNE BARNES on 08/20/24 [facility] 06-25-2024 Instructions Fallon Larson MD - 06/25/2024 12:19 PM EDT HOW DOES CHRONIC STRESS AFFECT EATING PATTERNS? Chronic stress can affect the body s use of calories and nutrients in various ways. It raises the body s metabolic needs and increases the use and excretion of many nutrients. If one does not eat a nutritious diet, a deficiency may occur.Stress also creates a chain reaction of behaviors that can negatively affect eating habits, leading to other health problems down the road. Stress places a greater demand on the body for oxygen, energy, and nutrients. Yet people who experience chronic stress may crave comforting foods such as highly processed snacks or sweets, which can be high in unhealthy fats, sugar, and calories but low in micronutrients. People feeling stress may lack the time or motivation to prepare nutritious, balanced meals, or may skip or forget to eat meals. Stress can disrupt sleep by causing consumer electronics merchandiser sleep or more frequent awakenings, which leads to fatigue during the day. In order to cope with daytime fatigue, people may use stimulants to increase energy such as with caffeine or high-calorie snack foods. The reverse may also be true that poor-quality sleep is itself a stressor. Studies have found that sleep restriction causes a significant increase in cortisol levels. During acute stress, adrenaline suppresses the appetite.But with chronic stress, elevated levels of cortisol may cause cravings, particularly for foods high in sugar, fat, and calories, which may then lead to weight gain. Cortisol favors the accumulation of fat in the belly area, also called central adiposity, which is associated with insulin resistance and an increased risk of type 2 diabetes, cardiovascular disease, and certain breast cancers.4,6-8 It also lowers levels of the hormone leptin (that promotes satiety) while increasing the hormone ghrelin (that increases appetite). https://cdn1.sph.[employer].edu/wp-co ntent/uploads/sites//Hea bfaxQiugmzWotnq07-62.1.pdf Tips to reduce food cravings Aim to eat nutritionally balanced meals. Foods with protein and fiber provide longer-lasting satisfaction. Avoid long stretches of not eating. Eat a nutritious meal or snack every 3-4 hours. Waiting too long to eat because you are busy or distracted may only lead to stronger hunger when you do eat and the risk of overeating. Also keep in mind that if your bedtime is more than 4 hours after you ve finished dinner, you may feel hungry again; to avoid snacking late night which can disrupt sleep, try to go to bed earlier when possible. Avoid choosing hyperpalatable or ultraprocessed snacks that are high in sodium, fat, sugar, and calories but low in nutrition. These are the types of foods that trigger the brain reward pathways and cause cravings to eat more. Choose satisfying, less-processed snacks like fresh fruit, a handful of nuts, or a cup of low-sugar yogurt. Limit environmental cues to eat, such as scrolling through social media posts about food or [employer] (online videos of people eating enormous quantities of decadent meals) and watching television cooking shows. In an office setting, detour away from the candy bowls and platters of bagels and treats that may be sitting in the break room. Food cravings are sometimes learned behaviors that are associated with an event or environment, such as craving potato chips while watching late-night television. If so, research suggests that it is possible to unlearn the behavior and reduce the craving by avoiding the food completely for an extended time. [25] In addition, you can try changing the association by changing your evening routine with a different activity like listening to an audiobook or podcast. Practice mindfulness when sensing a growing craving. Ask yourself if you are stressed, bored, angry? If so, try instead doing breathing exercises, talking a brisk 5-10 minute walk, listening to a meditation chong or podcast, or playing a few favorite songs. If you can distract yourself from eating for about 5-7 minutes, the craving may subside. Learn more about mindful eating. Try other dopamine-inducing activities such as taking a walk in nature on a joy day, dancing, or watching a funny video and laughing aloud! 10 Easy Ways to Increase Your NEAT (Non-exercise activity thermogenesis) One of the best ways to lose those those extra pounds for good and keep it off is to make daily habit changes that can help burn those extra calories during activities you would normally do regardless. What I am talking about is increasing your NEAT. What is NEAT? It is Non-exercise activity thermogenesis. It is the activity that you are able to add into your daily routine outside of the gym that can help you in the long run. It can help you lose those ten pounds not this month, but over the next 12 months. In the grand scheme of things, would you not want to be ten pounds consumer electronics merchandiser come next year? Now it is time for me to show you how. For a moment, imagine for me that you we are back before you started going to the gym. Imagine you were slowly gaining about a pound every two to three months. After 3 years of not exercising or working out you realized you are 10 pound heavier. All your clothes feel a little tighter and you just do not feel good in your own skin like how you used to. One day climbing up a flight of stairs you become way too easily winded, and not just that, but your knees are hurting. For some people, this is all too real. That was the wake up call to go to the gym to start exercising. Yet, why do you exercise when you gain weight? The reason is because you were taught that when you begin exercising, you begin to lose the weight you previously put on. The reason for the weight loss is because you have started to burn more calories compared to what you have consumed through your diet. When it comes to fat loss, you want to have a calorie deficit of about 500 calories a day so that about after a week you will be 3500 calories short. Your body is naturally programmed then to pull those calories of energy out of your stored fat. One pound of fat is roughly equal to 3500 calories. So when you burn those calories at the gym and create that calorie deficit you are burning through that stored fat. Another way you can create a calorie deficit is by changing up your diet. If you reduce the calories you eat by a small margin to create a 500 calories deficit then the same result will happen of burning a pound of stored body fat for every 3500 calories you did not eat that you may normally would have. Now finally for NEAT to come into play. We are going through your normal daily life but now you add some extra Non-exercise activity thermogenesis. You add some daily habits that helped you burn extra calories throughout your day. These extra calories that you burn add to your total daily energy expenditure which means that instead of those calories you were eating becoming stored as fat, you burned those calories, without even stepping into a gym. That is the power of NEAT. Sadly, most individuals do not know of the power of NEAT so most people do gain those ten pounds. Still, NEAT can help you lose that weight gained. Let s say now that you know the power of NEAT you want to incorporate it as part of your daily life and habits with that a positive change of dietary habits and a new exercise program. So let us say you are at the gym going three times a week and hike once a week burning a total of 2500 calories at the end of the week. With that you are improving your eating habits and diet and that has created an additional 2000 calories deficit at the end of the week. So so far a nice sum total of 4500 calories burned in just a single week. Now with a little magical NEAT you add just 100 calories a day of extra activity into your life and therefore an extra 700 calories that you burned in one week! So now you have 5200 calories a week burned between your diet, exercise, and nonexercise activity. Now over a course of a month you have 28,000 calories burned. Over three months time you have 84,000 calories. If you were to burn and have a calories deficit of 84,000 calories that is a sum total of 24 pounds lost! Now if you did not include NEAT into that math you would have lost 21.6 pounds. Still a great amount lost, but after a year you are missing out on those extra 10 pounds you could have lost by barely making a change. Here are 10 examples of NEAT to help you lose weight: WALKING: Walking is an easy activity nearly every one of us can accomplish. All we have to do is increase the number of steps we walk everyday and over time the extra energy used comes from our stores fat. It is also fairly simple to increase the number of steps you walk throughout the day. You can park your car down the street from your house. You can park at the farthest spot when shopping. You can go for an easy morning walk while you sip your morning cup of Jasmeet. All the steps will add up over time. COOKING: Most of us cook at least one meal throughout the day. During this time you can add in some simple movements. When I cook, I like to squat deep when I grab a nugent out of the cabinet. When I m reaching for the spices on the shelf I throw in a push-up. When I m waiting for the vegetables to steam I simply bounce or fidget in place while reading or going on social media. The point is while I m coming I am not standing still. For those times I m eating out, I will fidget in line by bouncing on one foot for a bit then switch it up. Sometimes I ll squat while waiting for my coffee. Again, the point is I keep moving. TELEVISION: I watch TV. I would even be lying to you if I said I hardly watch TV. I would be lying to you if I said I sit or lay down and watch TV. When watching my programs or sports on TV I am stretching. I lay down and stretch out my muscles. I ll use the couch as a steady surface to stretch my back out, my shoulders out, my legs out. I never just sit down and watch TV. I stretch and stay active and honestly it is one of the best habits I have created. It has helped me stay loose and I no longer feel guilty about watching TV. It is a win win. Morning Routine: Everyone has a morning routine that they go through during their work week. This is an easy time to add some extra movement to your day. The moment you get out of bed, do some push-ups. You do not even have to define a specific amount. Just drop down and give me however many you feel like. When you go to start the coffee pot, I want you to give me some jumping jacks. The moment you go and brush your teeth, give me some squats before you start or maybe even while you are brushing your teeth if you feel like really multitasking. Going out to get the morning paper, I want a burpee when you get to that paper. Just add in some simple movements or tasks that are associated with every stop along your morning routine. Evening Routine Same concept of your morning routine except I want you to do more stretching and more of a yoga pose idea with it. When you are going around the house shutting off the lights, take a deep breath and reach up and then down towards your toes. Locking the doors, I want a nice deep lunge stretch to help loosen up those hip flexors. Do simple more relaxing movements. Not only will these little movements help burn those extra calories, they are going to help mentally and physically relax you before you sleep. Your Car Most people are getting in and out of their car at least once a day. Every time you are getting into your car, add some movement. You can do jumping jacks, lunges, squats, some hip hinges, do something. I have known people where they will do as many reps of squats for each minute they expect to be driving. If they were going on a long road trip, they would break up those squats during the rest breaks. This is a very simple way to add in those extra calories burned. Personally I like to try getting into and out of my car without using my hands. Some days I will try to mix up only using one foot or the other with no hands trying to carefully slid out of the car. Ditch the Car: If you do not have a crazy commute to work or when running errands or even going out to eat ditch the car for the evening. Many people forget that they can walk places and it will in fact not take long at all. The walk will make you feel good, burn calories, and will help out our environment. Personally I try to ride my bike to work as often as I can. I know others who go and walk to the grocery store when buying only a handful of items. I know of others who take an uber to work in the morning and walk the distance home. The point is at least once a week ditch the car and ride your bike, walk, skate, or even run somewhere you need to go. Work Do not just sit there. If you have a job where you end up sitting down for an extended period of time you are doing harm to yourself. Luckily you can save yourself. Every 5 minutes you sound get up and stand up and squat down and then sit right back down. Anytime you have a break in your workflow, do a little twist in the chair stretching your back out. If you are stuck there reading your emails, add some arm circles in. You won t even have to get out of your chair for those arm circles. All the little movements add up. So please, do it for yourself and do not just sit there. You & Your Significant Other You don t have to be to have a significant other. Exercising with a bestie, a girlfriend or boyfriend or even a pet is a great way to spend time and feel great. Who does not like a long romantic walk down the beach in the sand? Who would not want to go walk or a hike and enjoy nature? Go and chanelle your dog on all four and be a dog for fifteen minutes. They will enjoy it and so will you. The point is get moving with the your better half and you will be better for it. It will definitely bring the two of you closer as well. Clean Everything Cleaning is a very efficient way to multitask. You are getting those extra calories burned while cleaning whatever you wanted clean anyways. The fun part is make a game out of the cleaning. When I wash my car I see absolutely how fast I can get my car washed and clean. When I begin to vacuum I try to do everything while balancing on one leg or the other. When I sweep my house, I contact printer dry film the broomstick like I am trying to break it. The point is make it fun to clean and make it a good challenge. I put my laundry basket away from the washer and take jump shots with all my clothes into the washer. This is my favorite one and I highly recommend it if you have a it desktop support specialist. The lama is that you remember why you are doing every thing. Keep in mind your own goal. I want you to remember on why you are trying to lose weight in the first place. If you focus on that goal and remember to have fun with all these easy steps and tricks to add those extra calories burned, you will get to where you want to be and have fun in the process. Losing weight is not necessarily hard work. It can be fun if you are open to the idea and willing to look a bit goofy at times. I promise you though every one of these 10 ways to increase your daily NEAT will be effective and will all add up in the end. A great book that I would recommend for anyone reading is the Slight Edge. The book s main theme is that it is the little things done daily that lead to the biggest change. http://www.[employer]ist/10-easy-w gef-ji-yasgszbc-your-neat/ When thinking about weight-loss, one often has an ideal body weight in mind or an ultimate weight-loss goal. It s very common for people to think that unless they lose dozens of pounds, they will not be any healthier. This is a misconception. Studies have shown that health benefits resulting from weight-loss are evident with a weight reduction as low as 5-10 percent. This means that an individual that weighs 200 pounds will benefit greatly from losing 10 to 20 pounds. A 5-10 percent weight-loss can result in: A five point increase in HDL cholesterol. Decrease triglycerides by an average of 40 mg/dl Decrease in blood pressure, both systolic and diastolic, by 5 mmHg on average. Decrease HgB A1C by half a point on average Significant decrease in insulin levels May improve sleep apnea and sometimes if the apnea was not very severe, one can be weaned from the CPAP breathing machine Decrease in levels of inflammatory substances circulating in the blood drop significantly and therefore the risk of vascular damage is reduced as well documented in this encounter [facility] 06-25-2024 History of Present illness Narrative Images from the original note were not included. Some documentation from previous visit of 05/28/2024 was copied and pasted, documentation has been reviewed and edited as necessary for today's visit. Patient Summary: Hector is a 49 year old Female who presents for follow-up evaluation of obesity/weight management to treat and prevent related co-morbidities. In our previous visits we have discussed lifestyle intervention including a nutrition recommendations and physical activity optimization. Her last office visit was 1 month ago. Assessment/plan from last visit: - reviewed labs with patient - continue vit D supplement - reviewed cutting out more processed food adding whole foods- reviewed nutrition of protein bars- will stop consuming. - Continue protonix for GERD - continue tracking food and weight daily - reviewed constipation relief measures with medications - >5% TBW loss in initial 3 months of phentermine use qualifying for long-term off label treatment of obesity - Topiramate for migraines by PCP Interval History PT specifies the following items as new or significant updates since the last appointment: - lots of stressors this month- parents moved out, son visiting , home renovations, broke toe - feels cravings are there due to stress- has been able to stop herself- found another project, kept mind busy so she would not eat it. - is still tracking and feels that helps her - her goal is to get to 200lbs by xmas - getting about 90g protein per day, carbs averaging about - Adding squats with laundry- each piece - steps [phone] / day, parking further away -hardest part for her is not self sabotage. Weight loss since last vist: 8 lb Total weight lost: 22 lbs - Last Wt 06/25/24 : 102.9 kg (227 lb) 05/28/24 : 106.6 kg (235 lb) 04/10/24 : 112.9 kg (249 lb) Date: 04/10/2024 249 lb BMI: 47.05 5% weight loss = 236 lbs, 10% weight loss = 224 lbs Anti-obesity medications: Phentermine. 37.5 mg Benefit:makes her stop thinking about food, doesn't feel hungry Adverse effects: none Anti-obesity medications: Topiramate. 50 mg bid Benefit:was started for migraines Adverse effects: none AOM Medications: Topiramate Weight promoting medications: Effexor 75mg Previous Diet (initial appointment): Awake - 7:30 B - coffee azerbaijani sweet cream, apple juice (8oz) [place] wrap taco velásquez, watermelon juice (8oz) , oatmeal (packet), toast, blueberries , turkey sausage , hash browns S - fruit L - chipolte bowl chicken w/ guac, apple/pecan salad w/ chicken , chicken wrap, almonds, pretzels,pizza, S - halo oranges D - tilapia, brown rice spag, carrots, ludwin, garlic bread , beats, beans, cucumbers, veggie pizza slices, cheesy bread , cream cheese ragoons S - peach cobbler blizzard sometimes , sweets Fluids: coffee juice, stopped soda, 100 oz water per day Bedtime - 11:30pm Quality of diet: 24hr recall suggests healthy diet. Characterization of diet:Unstructured, unhealthy snacking, and increased consumption of sugar sweetened beverages. Criminal Analyst of impaired eating habits:lack of satiety, emotion, and does go back for seconds- more protein- meat- loves red meat but can't eat after gallbladder Eating Disorder no Cravings: savory- karmen cheese steaks, sometimes sweets Dietary changes: B - Owyn 32g S - L - owyn protein shake, sometimes oikos yogurt, lactate cottage cheese, oikos, salad with vinaigrette- iceburg with carrots, cabbage S - D - always a meat -grilled or baked- chicken, pork, green downing, peas, broccoli, celery, carrots, applesauce (homemade) brown rice 1/4c.-1/2c. , broccoli, baked fish, briseno cheese burger sliders S - Fluids - water 101 oz per day. Eating 3 meals a day, including breakfast Increasing water intake Controlling portions Increasing protein Reducing sugar-sweetened beverages Reducing carbohydrates Eating less take out/fast food Current Barriers: reduced physical activity Exercise: not structured- but tries to walk up and down driveway stable Stress: yes- parents live with her stable Sleep: 7 hrs, no OSAstable Estimated Creatinine Clearance: 99.1 mL/min (based on SCr of 0.8 mg/dL). PAST MEDICAL HISTORY Diagnosis Date Acute cholecystitis 12/12/2023 s/p lap td Crohn's disease (HCC) 2000 crohns disease, rectal bleeding resolved after hysterectomy. GI in [place] Depression Dysfunctional uterine bleeding 2006 s/p hysterectomy Dysmenorrhea Eczema Esophageal reflux Gastroesophageal reflux Fatty liver Fibromyalgia Generalized anxiety disorder History of cardiac monitoring 11/23/2023 Patient completed event monitor secondary to palpitations. Underlying sinus rhythm with excellent heart rate variability. Heart rate ranged from 50-140, average heart 75. A total of 74 strips were sent to us to review. No correlation with any arrhythmias. No evidence atrial fibrillation noted. This is a normal monitor. History of cardiovascular stress test 11/17/2020 The patient's resting heart rate was 85 bpm and blood pressure was 112/82 mmHg. The patient exercised according to the Modified Jagdish protocol. Total exercise 6 minutes and 15 seconds. The maximum heart rate was 134 bpm, which is 76% predicted for age. METs achieved was 4.4. The double product achieved was [address]. Peak heart rate was 134 bpm and peak blood pressure was 138/92 mmHg. History of echocardiogram 10/22/2023 LVEF 55-60%. No significant valvular abnormality. History of exercise stress test (without NM imaging) 11/07/2023 No electrocardiographic evidence of ischemia. Resting HR 68 bpm and BP was 116/80 mmHg. Exercised according to the Jagdish protocol. Test was terminated due to shortness of breath and leg fatigue. Total exercise time was 4 minutes and 30 seconds. Maximum HR was 157 bpm, which is 90% of the predicted heart rate for age. History of shingles 08/2023 LUQ, (L) flank, (L) posterior mid back. Lactose intolerance Lichen sclerosus Morbid obesity (HCC) Other acne Acne Recurrent cold sores Scalp psoriasis Vitamin D insufficiency Current Outpatient Medications Medication Sig Dispense Refill EFFEXOR XR 75 mg 24 hr capsule MULTIVITAMIN ORAL Take by mouth. Phentermine HCl 37.5 mg tablet Take 1 tablet by mouth daily before breakfast for 90 days. 90 tablet 0 loratadine (CLARITIN) [address] (PROTONIX) 40 mg tablet Take 1 tablet by mouth every afternoon. INV VITAMIN D3 4000 UNIT OR [place] (IRB [id number]) CAPSULE polyethylene glycol 3350 (MIRALAX) 17 gram/dose powder psyllium husk (METAMUCIL) 3.4 gram/5.4 gram powd topiramate (TOPAMAX) 25 mg tablet Take by mouth. One tablet daily for a week; then one tablet twice daily for a week; then one table three times daily for a week; then two tablets twice daily thereafter. (Patient taking differently: 50 mg two times a day. Take by mouth. One tablet daily for a week; then one tablet twice daily for a week; then one table three times daily for a week; then two tablets twice daily thereafter.) 120 tablet 11 fluticasone (FLONASE) 50 mcg/actuation nasal spray Use 2 Sprays in each nostril once daily. Rinse mouth after use. (Patient not taking: Reported on 04/10/2024) 16 g 1 clobetasol (TEMOVATE) 0.05 % ointment Apply 1 application to affected area twice daily. TO AFFECTED AREA. (Patient not taking: Reported on 04/10/2024) 45 g 0 No current facility-administered medications for this visit. ROS denies CP, Palpitations, Constipation ROS/Fam Hx pertaining to AOMs: GEN: Fatigue:yes CV: h/o palpitations/cardiac arrhythmia, Chest pain: yes- stress test/echo normal- more related to anxiety HTN: no PULM: Asthma:no GI: GERD:yes ; Gallstones:no, had a gallbladder removed ; Fatty liver disease:yes Pancreatitis: no MSK: Joint Pain:yes : Nephrolithiasis: no Symptoms of PCOS: no NEURO: Migraines/DIANE: yes ; H/o seizures: no Glaucoma:no; Cataracts no Symptoms of or History of pseudotumor cerebri:no Family or personal History of MEN2 or Medullary thyroid cancer: yes, mother has thyroid issues. 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 Latest Ref Rng & Units 04/11/2024 CMP Sodium 136 - 144 mmol/L 140 Potassium 3.7 - 5.1 mmol/L 4.1 Chloride 98 - 107 mmol/L 107 CO2 22 - 30 mmol/L 22 Glucose 74 - 99 mg/dL 97 BUN 7 - 21 mg/dL 13 Creatinine 0.58 - 0.96 mg/dL 0.80 EGFR >=60 mL/min/1.73m 92 Protein, Total 6.3 - 8.0 g/dL 6.8 Albumin 3.9 - 4.9 g/dL 3.8 Calcium 8.5 - 10.2 mg/dL 9.0 Bilirubin, Total 0.2 - 1.3 mg/dL 0.2 AST 13 - 35 U/L 21 ALT 7 - 38 U/L 17 Alkaline Phosphatase 34 - 123 U/L 100 Cholesterol, Total (mg/dL) Date Value 12/06/2023 112 03/26/2015 147 Total Cholesterol, Nonfasting (mg/dL) Date Value 11/24/2020 163 HDL Cholesterol (mg/dL) Date Value 12/06/2023 51 03/26/2015 45 HDL Cholesterol, Nonfasting (mg/dL) Date Value 11/24/2020 53 LDL Cholesterol (mg/dL) Date Value 12/06/2023 48 03/26/2015 78 LDL Cholesterol, Nonfasting (mg/dL) Date Value 11/24/2020 90 Triglyceride (mg/dL) Date Value 12/06/2023 63 03/26/2015 118 Triglycerides, Nonfasting (mg/dL) Date Value 11/24/2020 102 Latest Ref Rng & Units 12/16/2023 CBC WBC 3.70 - 11.00 k/uL 6.35 RBC 3.90 - 5.20 m/uL 4.58 Hemoglobin 11.5 - 15.5 g/dL 13.6 Hematocrit 36.0 - 46.0 % 41.1 MCV 80.0 - 100.0 fL 89.7 MCH 26.0 - 34.0 pg 29.7 MCHC 30.5 - 36.0 g/dL 33.1 RDW-CV 11.5 - 15.0 % 12.5 Platelet Count 150 - 400 k/uL 322 MPV 9.0 - 12.7 fL 9.9 Baso% % 0.5 Abs Neut (ANC) 1.45 - 7.50 k/uL 2.98 Abs Lymph 1.00 - 4.00 k/uL 2.65 Abs [place] <0.87 k/uL 0.52 Abs Eosin <0.46 k/uL 0.15 Abs Baso <0.11 k/uL 0.03 NRBC /100 WBC 0.0 Vitamin D 25 Hydroxy Date Value Ref Range Status 04/11/2024 37.2 31.0 - 80.0 ng/mL Final 12/07/2023 24.6 (L) 31.0 - 80.0 ng/mL Final Comment: Classification of 25 [place] Vitamin D status: Deficiency/Insufficiency: < or = 30 ng/ml. Sufficiency/Optimal Levels: 31-80 ng/mL Toxicity: > 100 ng/mL. Test performed by chemiluminescent immunoassay. TSH Date Value 04/11/2024 2.360 mIU/L 10/22/2022 2.580 mIU/L 11/24/2020 2.590 uU/mL 03/26/2015 2.950 uU/mL ) Hemoglobin A1C (%) Date Value 12/06/2023 5.1 10/22/2022 5.3 11/24/2020 5.4 Insulin Date Value Ref Range Status 04/11/2024 12.0 3.0 - 25.0 mU/L Final Assessment/Plan: Hector Leon is a 49 year old yo with Class III obesity who presented today for follow up for supervised weight loss to treat and prevent related co-morbidities. (E78.2) Mixed hyperlipidemia (primary encounter diagnosis) (E55.9) Vitamin D deficiency (K76.0) Fatty liver (K21.9) Gastroesophageal reflux disease without esophagitis (M79.7) Fibromyalgia (E66.813, Z68.42, E66.01) Class 3 severe obesity due to excess calories with serious comorbidity and body mass index (BMI) of 45.0 to 49.9 in adult (HCC) - discussed need to keep track of carbs better. Recommend tracking. Recommend adding more vegetables to lunch. Maybe spreading out carbs btwn lunch and dinner? Hard to tell if too many at dinner. Dinner seems to be large meal. -discussed stress and impact on weight and hunger hormones -discussed journaling and vision board with goals - GOAL - wants to be under 200lbs by xmas - continue vit D supplement - Continue protonix for GERD -phentermine >5% TBW loss in initial 3 months of phentermine use qualifying for long-term off label treatment of obesity- refill given - taking topiramate by PCP for migraines - discussed routine exercise and impact on weight and weight maintenance - An overall goal of 150-200 minutes per week of exercise has been effective in weight loss and maintenance. Prescription instructions reviewed with patient as applicable. Potential red flag symptoms discussed with the patient. Reviewed appropriate action plan to take if red flag symptoms occur. Patient agreeable to treatment plan. Follow up in 4 weeks as scheduled - appts thru Sep 28 made I spent a total of 38 minutes on the date of the service which included preparing to see the patient, [id number] patient care, completing clinical documentation, obtaining and/or reviewing separately obtained history, performing a medically appropriate examination, counseling and educating the patient/family/caregiver, and ordering medications, tests, or procedures. Fallon Sullivan MD, FACOG, SUYAPA documented in this encounter [facility] 06-25-2024 Note HNO ID: [id number] Author: FALLON LARSON MD Service: ? Author Type: Physician Type: Progress Notes Filed: 06/25/2024 12:20 Note Text: Some documentation from previous visit of 05/28/2024 was copied and pasted, documentation has been reviewed and edited as necessary for today's visit. Patient Summary: Hector is a 49 year old Female who presents for follow-up evaluation of obesity/weight management to treat and prevent related co-morbidities. In our previous visits we have discussed lifestyle intervention including a nutrition recommendations and physical activity optimization. Her last office visit was 1 month ago. Assessment/plan from last visit: - reviewed labs with patient - continue vit D supplement - reviewed cutting out more processed food adding whole foods- reviewed nutrition of protein bars- will stop consuming. - Continue protonix for GERD - continue tracking food and weight daily - reviewed constipation relief measures with medications - >5% TBW loss in initial 3 months of phentermine use qualifying for long-term off label treatment of obesity - Topiramate for migraines by PCP Interval History PT specifies the following items as new or significant updates since the last appointment: - lots of stressors this month- parents moved out, son visiting , home renovations, broke toe - feels cravings are there due to stress- has been able to stop herself- found another project, kept mind busy so she would not eat it. - is still tracking and feels that helps her - her goal is to get to 200lbs by xmas - getting about 90g protein per day, carbs averaging about - Adding squats with laundry- each piece - steps [id number] / day, parking further away -hardest part for her is not self sabotage. Weight loss since last vist: 8 lb Total weight lost: 22 lbs - Last Wt 06/25/24 : 102.9 kg (227 lb) 05/28/24 : 106.6 kg (235 lb) 04/10/24 : 112.9 kg (249 lb) Date: 04/10/2024 249 lb BMI: 47.05 5% weight loss = 236 lbs, 10% weight loss = 224 lbs Anti-obesity medications: Phentermine. 37.5 mg Benefit:makes her stop thinking about food, doesn't feel hungry Adverse effects: none Anti-obesity medications: Topiramate. 50 mg bid Benefit:was started for migraines Adverse effects: none AOM Medications: Topiramate Weight promoting medications: Effexor 75mg Previous Diet (initial appointment): Awake - 7:30 B - coffee azerbaijani sweet cream, apple juice (8oz) [place] wrap taco velásquez, watermelon juice (8oz) , oatmeal (packet), toast, blueberries , turkey sausage , hash browns S - fruit L - chipolte bowl chicken w/ guac, apple/pecan salad w/ chicken , chicken wrap, almonds, pretzels,pizza, S - halo oranges D - tilapia, brown rice spag, carrots, ludwin, garlic bread , beats, beans, cucumbers, veggie pizza slices, cheesy bread , cream cheese ragoons S - peach cobbler blizzard sometimes , sweets Fluids: coffee juice, stopped soda, 100 oz water per day Bedtime - 11:30pm Quality of diet: 24hr recall suggests healthy diet. Characterization of diet:Unstructured, unhealthy snacking, and increased consumption of sugar sweetened beverages. Criminal Analyst of impaired eating habits:lack of satiety, emotion, and does go back for seconds- more protein- meat- loves red meat but can't eat after gallbladder Eating Disorder no Cravings: savory- karmen cheese steaks, sometimes sweets Dietary changes: B - Owyn 32g S - L - owyn protein shake, sometimes oikos yogurt, lactate cottage cheese, oikos, salad with vinaigrette- iceburg with carrots, cabbage S - D - always a meat -grilled or baked- chicken, pork, green downing, peas, broccoli, celery, carrots, applesauce (homemade) brown rice 1/4c.-1/2c. , broccoli, baked fish, briseno cheese burger sliders S - Fluids - water 101 oz per day. Eating 3 meals a day, including breakfast Increasing water intake Controlling portions Increasing protein Reducing sugar-sweetened beverages Reducing carbohydrates Eating less take out/fast food Current Barriers: reduced physical activity Exercise: not structured- but tries to walk up and down driveway stable Stress: yes- parents live with her stable Sleep: 7 hrs, no OSAstable Estimated Creatinine Clearance: 99.1 mL/min (based on SCr of 0.8 mg/dL). PAST MEDICAL HISTORY Diagnosis Date Acute cholecystitis 12/12/2023 s/p lap td Crohn's disease (HCC) 2000 crohns disease, rectal bleeding resolved after hysterectomy. GI in [place] Depression Dysfunctional uterine bleeding 2006 s/p hysterectomy Dysmenorrhea Eczema Esophageal reflux Gastroesophageal reflux Fatty liver Fibromyalgia Generalized anxiety disorder History of cardiac monitoring 11/23/2023 Patient completed event monitor secondary to palpitations. Underlying sinus rhythm with excellent heart rate variability. Heart rate ranged from 50-140, average heart 75. A total of 74 strips we (more content not included)... [facility] 05-28-2024 History of Present illness Narrative Images from the original note were not included. Some documentation from previous visit of 04/10/2024 was copied and pasted, documentation has been reviewed and edited as necessary for today's visit. Patient Summary: Hector is a 49 year old Female who presents for follow-up evaluation of obesity/weight management to treat and prevent related co-morbidities. In our previous visits we have discussed lifestyle intervention including a nutrition recommendations and physical activity optimization. Her last office visit was 7 weeks ago. Assessment/plan from last visit: LABS ORDERED Will consider Nutrition at [facility] next visit Bariatric referral placed- scared b/c daughter had to have reversal due to Type 1 Dm Will call patient with labs and discuss medication options. *zepbound ordered - pt was notified and labs reviewed - not covered- phentermine and topiramate Interval History PT specifies the following items as new or significant updates since the last appointment: - tracking in diary - has more energy to play with daughter and dog - bras are smaller - had extra link that after years she removed - feels great, very happy with her progress, does not want to do surgery at this time- maybe will consider in future but not now - understands how important protein is Weight loss since last vist:14 lb Total weight lost: 14lbs - Last Wt 05/28/24 : 106.6 kg (235 lb) 04/10/24 : 112.9 kg (249 lb) Date: 04/10/2024 249 lb BMI: 47.05 5% weight loss = 236 lbs, 10% weight loss = 224 lbs Anti-obesity medications: Phentermine. 37.5 mg Benefit:makes her stop thinking about food, doesn't feel hungry Adverse effects: none Anti-obesity medications: Topiramate. 50 mg bid Benefit:was started for migraines Adverse effects: none AOM Medications: Topiramate Weight promoting medications: Effexor 75mg Previous Diet (initial appointment): Awake - 7:30 B - coffee azerbaijani sweet cream, apple juice (8oz) [place] wrap taco velásquez, watermelon juice (8oz) , oatmeal (packet), toast, blueberries , turkey sausage , hash browns S - fruit L - chipolte bowl chicken w/ guac, apple/pecan salad w/ chicken , chicken wrap, almonds, pretzels,pizza, S - halo oranges D - tilapia, brown rice spag, carrots, ludwin, garlic bread , beats, beans, cucumbers, veggie pizza slices, cheesy bread , cream cheese ragoons S - peach cobbler blizzard sometimes , sweets Fluids: coffee juice, stopped soda, 100 oz water per day Bedtime - 11:30pm Quality of diet: 24hr recall suggests healthy diet. Characterization of diet:Unstructured, unhealthy snacking, and increased consumption of sugar sweetened beverages. Criminal Analyst of impaired eating habits:lack of satiety, emotion, and does go back for seconds- more protein- meat- loves red meat but can't eat after gallbladder Eating Disorder no Cravings: savory- karmen cheese steaks, sometimes sweets Dietary changes: B - Owyn 32g S - L - owyn protein shake or fiber one protein bar, [place] bar, chicken tenders, lactate cottage cheese, oikos triple zero yogurt, S - D - grilled chicken, green downing, small baked potato, pat noodles (1/2c), rice 1/4c. , broccoli, baked fish, briseno cheese burger sliders S - Fluids - water 101 oz per day. Eating 3 meals a day, including breakfast Increasing water intake Controlling portions Increasing protein Reducing sugar-sweetened beverages Reducing carbohydrates Eating less take out/fast food Current Barriers: reduced physical activity Exercise: not structured- but tries to walk up and down driveway stable Stress: yes- parents live with her stable Sleep: 7 hrs, no OSAstable Estimated Creatinine Clearance: 102.5 mL/min (based on SCr of 0.8 mg/dL). PAST MEDICAL HISTORY Diagnosis Date Acute cholecystitis 12/12/2023 s/p lap td Crohn's disease (HCC) 2000 crohns disease, rectal bleeding resolved after hysterectomy. GI in [place] Depression Dysfunctional uterine bleeding 2006 s/p hysterectomy Dysmenorrhea Eczema Esophageal reflux Gastroesophageal reflux Fatty liver Fibromyalgia Generalized anxiety disorder History of cardiac monitoring 11/23/2023 Patient completed event monitor secondary to palpitations. Underlying sinus rhythm with excellent heart rate variability. Heart rate ranged from 50-140, average heart 75. A total of 74 strips were sent to us to review. No correlation with any arrhythmias. No evidence atrial fibrillation noted. This is a normal monitor. History of cardiovascular stress test 11/17/2020 The patient's resting heart rate was 85 bpm and blood pressure was 112/82 mmHg. The patient exercised according to the Modified Jagdish protocol. Total exercise 6 minutes and 15 seconds. The maximum heart rate was 134 bpm, which is 76% predicted for age. METs achieved was 4.4. The double product achieved was 22067. Peak heart rate was 134 bpm and peak blood pressure was 138/92 mmHg. History of echocardiogram 10/22/2023 LVEF 55-60%. No significant valvular abnormality. History of exercise stress test (without NM imaging) 11/07/2023 No electrocardiographic evidence of ischemia. Resting HR 68 bpm and BP was 116/80 mmHg. Exercised according to the Jagdish protocol. Test was terminated due to shortness of breath and leg fatigue. Total exercise time was 4 minutes and 30 seconds. Maximum HR was 157 bpm, which is 90% of the predicted heart rate for age. History of shingles 08/2023 LUQ, (L) flank, (L) posterior mid back. Lactose intolerance Lichen sclerosus Morbid obesity (HCC) Other acne Acne Recurrent cold sores Scalp psoriasis Vitamin D insufficiency Current Outpatient Medications Medication Sig Dispense Refill Phentermine HCl 37.5 mg tablet Take 1 tablet by mouth daily before breakfast for 90 days. 90 tablet 0 loratadine (CLARITIN) 10 mg tablet EFFEXOR XR 37.5 mg [address] (PROTONIX) 40 mg tablet Take 1 tablet by mouth every afternoon. INV VITAMIN D3 4000 UNIT OR [place] (IRB [id number]) CAPSULE polyethylene glycol 3350 (MIRALAX) 17 gram/dose powder psyllium husk (METAMUCIL) 3.4 gram/5.4 gram powd topiramate (TOPAMAX) 25 mg tablet Take by mouth. One tablet daily for a week; then one tablet twice daily for a week; then one table three times daily for a week; then two tablets twice daily thereafter. 120 tablet 11 fluticasone (FLONASE) 50 mcg/actuation nasal spray Use 2 Sprays in each nostril once daily. Rinse mouth after use. (Patient not taking: Reported on 04/10/2024) 16 g 1 oxyCODONE IR (ROXICODONE) 5 mg immediate release tablet Take 5 mg by mouth every 6 hours as needed for pain. lansoprazole (PREVACID) 30 mg capsule Take 1 capsule by mouth daily before breakfast. 1/2 hr before meal. 90 capsule 1 clobetasol (TEMOVATE) 0.05 % ointment Apply 1 application to affected area twice daily. TO AFFECTED AREA. (Patient not taking: Reported on 04/10/2024) 45 g 0 No current facility-administered medications for this visit. ROS denies CP, Palpitations, Constipation ROS/Fam Hx pertaining to AOMs: GEN: Fatigue:yes CV: h/o palpitations/cardiac arrhythmia, Chest pain: yes- stress test/echo normal- more related to anxiety HTN: no PULM: Asthma:no GI: GERD:yes ; Gallstones:no, had a gallbladder removed ; Fatty liver disease:yes Pancreatitis: no MSK: Joint Pain:yes : Nephrolithiasis: no Symptoms of PCOS: no NEURO: Migraines/DIANE: yes ; H/o seizures: no Glaucoma:no; Cataracts no Symptoms of or History of pseudotumor cerebri:no Family or personal History of MEN2 or Medullary thyroid cancer: yes, mother has thyroid issues. 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 Latest Ref Rng & Units 04/11/2024 CMP Sodium 136 - 144 mmol/L 140 Potassium 3.7 - 5.1 mmol/L 4.1 Chloride 98 - 107 mmol/L 107 CO2 22 - 30 mmol/L 22 Glucose 74 - 99 mg/dL 97 BUN 7 - 21 mg/dL 13 Creatinine 0.58 - 0.96 mg/dL 0.80 EGFR >=60 mL/min/1.73m 92 Protein, Total 6.3 - 8.0 g/dL 6.8 Albumin 3.9 - 4.9 g/dL 3.8 Calcium 8.5 - 10.2 mg/dL 9.0 Bilirubin, Total 0.2 - 1.3 mg/dL 0.2 AST 13 - 35 U/L 21 ALT 7 - 38 U/L 17 Alkaline Phosphatase 34 - 123 U/L 100 Cholesterol, Total (mg/dL) Date Value 12/06/2023 112 03/26/2015 147 Total Cholesterol, Nonfasting (mg/dL) Date Value 11/24/2020 163 HDL Cholesterol (mg/dL) Date Value 12/06/2023 51 03/26/2015 45 HDL Cholesterol, Nonfasting (mg/dL) Date Value 11/24/2020 53 LDL Cholesterol (mg/dL) Date Value 12/06/2023 48 03/26/2015 78 LDL Cholesterol, Nonfasting (mg/dL) Date Value 11/24/2020 90 Triglyceride (mg/dL) Date Value 12/06/2023 63 03/26/2015 118 Triglycerides, Nonfasting (mg/dL) Date Value 11/24/2020 102 Latest Ref Rng & Units 12/16/2023 CBC WBC 3.70 - 11.00 k/uL 6.35 RBC 3.90 - 5.20 m/uL 4.58 Hemoglobin 11.5 - 15.5 g/dL 13.6 Hematocrit 36.0 - 46.0 % 41.1 MCV 80.0 - 100.0 fL 89.7 MCH 26.0 - 34.0 pg 29.7 MCHC 30.5 - 36.0 g/dL 33.1 RDW-CV 11.5 - 15.0 % 12.5 Platelet Count 150 - 400 k/uL 322 MPV 9.0 - 12.7 fL 9.9 Baso% % 0.5 Abs Neut (ANC) 1.45 - 7.50 k/uL 2.98 Abs Lymph 1.00 - 4.00 k/uL 2.65 Abs [place] <0.87 k/uL 0.52 Abs Eosin <0.46 k/uL 0.15 Abs Baso <0.11 k/uL 0.03 NRBC /100 WBC 0.0 Vitamin D 25 Hydroxy Date Value Ref Range Status 04/11/2024 37.2 31.0 - 80.0 ng/mL Final 12/07/2023 24.6 (L) 31.0 - 80.0 ng/mL Final Comment: Classification of 25 [place] Vitamin D status: Deficiency/Insufficiency: < or = 30 ng/ml. Sufficiency/Optimal Levels: 31-80 ng/mL Toxicity: > 100 ng/mL. Test performed by chemiluminescent immunoassay. TSH Date Value 04/11/2024 2.360 mIU/L 10/22/2022 2.580 mIU/L 11/24/2020 2.590 uU/mL 03/26/2015 2.950 uU/mL ) Hemoglobin A1C (%) Date Value 12/06/2023 5.1 10/22/2022 5.3 11/24/2020 5.4 Insulin Date Value Ref Range Status 04/11/2024 12.0 3.0 - 25.0 mU/L Final Assessment/Plan: Hector Leon is a 49 year old yo with Class III obesity who presented today for follow up for supervised weight loss to treat and prevent related co-morbidities. (E78.2) Mixed hyperlipidemia (primary encounter diagnosis) (E55.9) Vitamin D deficiency (K76.0) Fatty liver (K21.9) Gastroesophageal reflux disease without esophagitis (M79.7) Fibromyalgia (E66.01, Z68.42) Class 3 severe obesity due to excess calories with serious comorbidity and body mass index (BMI) of 45.0 to 49.9 in adult (HCC) - reviewed labs with patient - continue vit D supplement - reviewed cutting out more processed food adding whole foods- reviewed nutrition of protein bars- will stop consuming. - Continue protonix for GERD - continue tracking food and weight daily - reviewed constipation relief measures with medications - >5% TBW loss in initial 3 months of phentermine use qualifying for long-term off label treatment of obesity - Topiramate for migraines by PCP - An overall goal of 150-200 minutes per week of exercise has been effective in weight loss and maintenance. Prescription instructions reviewed with patient as applicable. Potential red flag symptoms discussed with the patient. Reviewed appropriate action plan to take if red flag symptoms occur. Patient agreeable to treatment plan. Follow up in 4 weeks as scheduled I spent a total of 35 minutes on the date of the service which included preparing to see the patient, [id number] patient care, completing clinical documentation, obtaining and/or reviewing separately obtained history, performing a medically appropriate examination, counseling and educating the patient/family/caregiver, and ordering medications, tests, or procedures. Fallon Sullivan MD, FACOG, DABOM documented in this encounter [facility] 05-28-2024 Instructions Fallon Larson MD - 05/28/2024 7:52 AM EDT Images from the original note were not included. - Eat primarily whole foods. Limit carbs, especially processed carbs. Eat - Meat, vegetables and fruits with skin on if possible, eggs, cheese. - Do not drink your calories - 30 grams of protein for your first meal of the day decreases your hunger during the day by up to 40 %. Options include: Premier Protein or generic 30 gm protein 1 gm sugar or 5 eggs or 2-3 eggs and some unbreaded meat and/or cheese. No fruit, vegetables, bread, grain, yogurt, Smoothies, etc. - Walk for 15 minutes immediately after meal <15 gram carb fruit options Berries have the lowest sugar content 1/2 medium apple - 12.5 carbs 1/2 medium avocado - 6.5 gm carbs 1/2 medium banana - 15 carbs 1/2 cup blueberries - 11 carbs - may actually help you lose weight 1/2 cup fresh cherries -11 carbs 1 medium Jaymie -9 carbs 1/2 cup fresh cranberries - 6.5 carbs 1/2 c grapes - 15 carbs 1/2 medium grapefruit - 10.5 carbs 1/2 cup diced honeydew melon - 8 carbs 1 medium kiwi without skin - 11 carbs 1/2 cup sliced mayda -14 carbs 1 medium nectarine - 15 carbs 1 medium orange -15.5 carbs 1 medium peach -14.5 carbs 1/2 cup fresh pineapple -11 carbs 1 medium plum -7.5 carbs 1 prune - 6 carbs 1/4 c raisins - 31.25 carbs 1/2 cup raspberries -7.5 carbs 1/2 c strawberries - 12.7 carbs 1 medium tangerine -12 carbs 1/2 cup diced watermelon - 6 carbs 5 (FIVE) gram carb vegetable options 1 cup raw OR cup cooked: Asparagus [place] sprouts Beets Broccoli Brussel sprouts Cabbage Carrots Cauliflower Celery [place] Eggplant Green beans Lettuce Peppers Snap peas Spaghetti squash Spinach Tomato Turnips Zucchini 15 gram carb vegetable options cup cooked corn or hominy corn on the cob, large (5 oz) cup cooked green peas cup cooked jiménez beans 1 small potato or sweet potato cup cooked potato, plain cup cooked sweet potato, plain 1 cup winter squash (pumpkin, acorn, butternut) 1 cup marinara or pasta sauce - check label cup tomato juice cup tomato puree Beans, Seeds, Nuts cup cooked beans (kidney, rizvi, red, green, etc.) cup cooked lentils cup baked beans 4 tablespoons nut butter Grains Brown rice 1/2 c 5.5g protein 24 carb White long-grain rice 1/2 c 2g protein 22.5 carb Quinoa 1/2 c 4 gm complete protein 25 carb Oatmeal, old fashioned 1/2 c 5g protein 27g carb Protein - no carbs Egg 1 large - 6g Egg white 1 large 3.6g 3 oz is approximately the size of a deck of cards and equals 21 g protein so 4 oz is 28 gm protein Beef, Chicken, [place], Pork, [place] 1 oz 7g Fish, Tuna Fish 1 oz 7g (Starkist tuna packet 2.6 oz 17 gm protein) Seafood (Crabmeat, Shrimp, Lobster) 1 oz 6g Protein shakes (read labels) Premier Protein or generic [employer] Equate, [employer] High Performance- 30g protein & 1g carb - meal replacement Premier Protein powder or generic- 30 gm protein, 1g carb Premier Protein plant protein powder - 25 gm protein, 0 suger/2 carb Vanilla and chocolate (not a meal replacement) Fairlife 30 gram protein - 30g protein & 3g carb BOOST Glucose Control Max 30g Protein Nutritional Drink - 30g protein & 1 carb - meal replacement Slimfast High Protein - 20g protein & 1g carb Ensure Max Protein Nutrition Shake 30g protein & 2 carb Protein AND carbs Beef/[place] Jerky 1 oz dried 10-15g protein - check carb count, can be high if sugar added Slim Zan - 6 gm protein and 4 net carb Great Value original turkey sausage sticks - 7 gm protein and 2 gm carb [facility] (at [facility]) Original smoked sausage sticks - 8 gm protein and 0 carb Imitation Crab Meat 1 oz - 2g protein & 4g carb Milk, skim 2% or 1% 8 oz - 8g protein & 12g carb Israeli yogurt Full Fat Israeli Yogurt 1 cup - 20.4g protein & 9.1g carb 2% Israeli Yogurt 1 cup - 22.7g protein & 9.1g carb 0% (fat-free) Israeli Yogurt - 1 cup 24g protein & 9.3g carb Aldi Protein Israeli yogurt single svg - 15g protein & 7g carb Chobani Zero Sugar single svg: - 11g protein & 5g carb Dannon Light + Fit 1 single svg - 12g protein & 9g carb Oikos Pro single svg - 20g protein & 8g carb Oikos Triple Zero Israeli Nonfat Yogurt 1 single svg - 15g protein & 7g carb :ratio, KETO Friendly Dairy Snack 1 single svg - 15g protein & 2g carb :ratio Protein 1 single svg - 25g protein & 8g carb Two Good Lowfat Israeli Yogurt, [place], Lower Sugar - 12g protein & 2g carb Yoplait Protein 1 single svg 15gm protein & 5gm carb Dairy Free - [place] 15 gm protein & 4 gm carb Cheese each oz Brie 5.9g protein & 0.1g carb Cheddar Cheese 7g protein & 0.4g carb Mozzarella Cheese 6.3g protein & 0.6g carb Chuck Cheese 6.7g protein & 0.7g carb Parmesan Cheese 10g protein & 0.9g carb Cream Cheese 1.7g protein & 1.2g carb Feta 4g protein & 1.2g carb R[place]an Cheese 7.6g protein & 1.5g carb Lou s Low Fat Cottage Cheese 1/2cup 12g protein & 4g carb Legumes Lentils cup 9g protein & 20g carb Jiménez beans cup 7g protein & 20g carb Kidney, Black, [place], Cannellini beans cup 8g protein & 20g carb Soybeans 1/2 c 14g complete protein & 8.5g carb [place] milk, unsweetened 8 oz 1g protein & 2g carb Soy milk 8 oz 3.5g protein & 1.6g carb Tofu 1/2 cup 10g protein & 2.3g carb Peanut butter, natural 2 Tbsp 7-8g protein & 4g net carbs, 190 calories PB2 powder 2 Tbsp 6g protein & 5g carb Nuts and Seeds per oz Almonds - 5.9g protein & 6.1g carb [place] Nuts - 4.0g protein & 3.4g carb Cashews - 5.1g protein & 9.2g carb Hazelnuts - 4.2g protein & 4.7g carb Hemp seeds 3 T/30 gms - 9.5 gm complete protein and 2.5 gm carb Peanuts - 7g protein & 4.6g carb Pecans - 2.6g protein & 3.9g carb Pistachios - 5.8g protein & 7.8g carb Pumpkin Seeds - 6.9g protein & 5g carb [place] Seeds - 5.8g protein & 5.6g carb Walnuts - 4.3g protein & 3.8g carb Why You May Want to Weigh Yourself Every Day At any given moment, an estimated 24% of men and 38% of women in the [place] are trying to lose weight (1Trusted Source). Meanwhile, obesity has skyrocketed and working-age adults are gaining about 2.2 pounds (1 kg) annually, on average (2Trusted Source, 3Trusted Source). Recent studies have shown that daily self-weighing may be a powerful tool for both losing and maintaining weight. However, many people believe that weighing yourself daily contributes to bad mental health and disordered eating habits. So what should you believe? This article sets the record straight on whether you should start weighing yourself daily. Weighing Yourself Daily Helps You Lose More Weight The simple act of self-weighing has received lots of attention and stirred up controversy for years. Some people have even thrown away their scale, claiming that it s a highly misleading weight loss tool that results in bad self-esteem and disordered eating habits (4, 5). However, recent studies generally agree that daily weighing is associated with greater weight loss and less weight regain than less-frequent self-weighing (6Trusted Source, 7, 8, 9). One study showed that participants who weighed themselves daily for six months lost 13 more pounds (6 kg), on average, than those who weighed themselves less frequently (10. What s more, those who weigh themselves daily tend to adopt more favorable weight control behaviors, exercise better restraint toward food and eat impulsively less often (10, 11). Interestingly, adopting healthy weight-related behaviors has been shown to be especially important when people emerge from adolescence into adulthood (12). One study in participants aged 18-25 showed that daily self-weighing resulted in better weight loss than less-frequent weighing (13). The researchers concluded that daily self-weighing is a particularly valuable self-regulation tool for this age group. Furthermore, another study showed that people who weighed themselves every day ate 347 fewer calories per day than those who did not. After six months, the group that weighed themselves daily ended up losing a whopping 10 times more weight than the control group (14). BOTTOM LINE: Daily self-weighing may cause people to lose more weight and gain less of it back, compared to less-frequent weighing. Daily Weighing May Motivate You and Improve Self-Control Being aware of your weight is a lama factor in successful weight loss. Awareness of your weight trend -- that is, whether your weight is going up or down -- is also important. In fact, weighing yourself more often is linked to weight control, while weighing yourself less often has been associated with weight gain. One study found that participants who weighed themselves less often were more likely to report increased calorie intake and decreased restraint toward food (15). Self-weighing promotes self-regulation and awareness of your weight trend and weight-related behaviors. That s why it generally results in greater weight loss (14). Although the exact number on the scale may be unimportant, monitoring weight loss progress motivates you to keep going and generally improves weight-related behavior and self-control. Also, by being more aware of your weight, you can quickly react to lapses in your progress and make necessary adjustments to maintain your goal. Since most people are able to sustain a habit of daily self-weighing, the adherence and acceptability of it is generally quite high (16Trusted Source, 17, 18, 19, 20). It s a minor addition to your daily routine that may help you reap major benefits for your weight. BOTTOM LINE: Daily self-weighing helps you maintain awareness of your weight. Monitoring weight loss progress further motivates you to keep going and improves your self-control. Daily Weighing Helps You Keep the Weight Off Frequent self-weighing has been shown to be a great way to prevent weight gain in the long-term (15, 2, 22, 23). One study investigated how much self-weighing frequency predicted weight loom changeover operator two years in working adults (24Trusted Source). It found that there was a significant link between self-weighing frequency and weight change. In normal-weight individuals, daily weighing resulted in a slight weight loss, while those who weighed themselves monthly gained 4.4 pounds (2 kg), on average. However, the largest difference was in overweight individuals. Those who weighed themselves daily lost 10 pounds (4.4 kg), while those who weighed themselves monthly gained 2.2 pounds (1 kg), on average (24). Another study came to a similar conclusion, showing that self-weighing was a significant predictor of body weight over time. Participants lost an extra pound (0.45 kg) of body weight for every 11 days they self-weighed (25). The main reason why this is so effective is that consistent self-weighing allows you to catch weight gain before it escalates and make the necessary changes to prevent more weight gain (15). BOTTOM LINE: Daily weighing may help prevent long-term weight gain, especially in overweight people. Weighing Yourself Daily Is Not as Bad as People Think Not so long ago, frequent self-weighing was thought to be damaging to your mental health. This notion still exists today. Self-weighing is claimed to have negative effects on your mood by continuously reinforcing that your body size is not ideal or appropriate, resulting in an increased risk of developing an eating disorder (4Trusted Source, 5Trusted Source). Although this may be true in a small group of people, most studies have repeatedly come to a different conclusion (9Trusted Source, 26Trusted Source, 27Trusted Source). The available research suggests there is very little evidence that frequent self-weighing is a cause of negative mood or body dissatisfaction, especially as part of a weight loss program (8Trusted Source, 12Trusted Source, 14Trusted Source, 26Trusted Source, 28Trusted Source, 29Trusted Source). In fact, studies indicate that frequent self-weighing may increase body satisfaction, rather than decrease it (9Trusted Source). That said, there is a group of people who may develop a negative body image, low self-esteem or undesirable eating behaviors as a result of daily self-weighing (30Trusted Source). If you find that daily self-weighing causes you to have bad feelings about yourself or your eating behaviors, you should find other methods to measure your progress. BOTTOM LINE: Most studies do not link frequent self-weighing to negative mood or body dissatisfaction. Some even associate them with higher body satisfaction. How to Weigh Yourself for Best Results The best time to weigh yourself is right after you wake up, after going to the bathroom and before you eat or drink. Your weight tends to fluctuate less in the morning than later in the day when you ve had plenty to eat and drink. That is also why people weigh the least in the morning. Also, it is best if you always weigh yourself in similar clothing each day. However, you need to keep in mind that your weight may fluctuate from day to day and can be affected by many factors, including: What you ate or drank the previous day Bloating or water retention Menstrual cycle Whether you ve had bowel movements recently Therefore, it is important to assess the trend of your weight over a longer period of time, instead of drawing conclusions from each and every weighing. A basic scale will do just fine. However, many scales also have the ability to measure your body mass index (BMI), body fat percentage and muscle mass, which may help you get a better picture of your progress. There are also several apps available for your phone or computer that allow you to easily enter your daily weight and see the trend of your weight change. Happy Scale for iPhone and Radha for Android are two such apps. BOTTOM LINE: It is best to weigh yourself right after you wake up, after going to the bathroom and before you eat or drink anything. Other Ways to Track Your Progress Although self-weighing may be a valuable tool, it has some limitations. If you re exercising and gaining muscle, the scale may not show your progress and instead simply show that you have gained weight. While losing weight can indicate progress, a scale does not differentiate between healthy weight (muscle) and unhealthy weight (fat). Therefore, it may be good to add other ways of tracking your progress to your regimen. Here are some examples: Measure circumference: Muscle has much less volume than fat, so your circumference may be decreasing even if your weight stays the same or goes up. Measure body fat percentage: By measuring your body fat percentage, you can observe changes in fat mass, regardless of your weight. Take pictures of yourself regularly: You can observe any changes in your physique by comparing photos of yourself in similar clothing. Note how your clothes feel: Any changes in your weight will probably affect how your clothes fit. Feeling them become looser or tighter is one of the best indicators of changes in your body. BOTTOM LINE: Other ways to track your progress include measuring your circumference, measuring your body fat percentage and taking pictures of yourself. Take Home Message Weighing yourself every day can help increase your awareness of your weight and weight-related behaviors. It may help you lose more weight and prevent you from gaining that weight back in the long-term. Daily self-weighing may just be that extra motivation you need to achieve your weight goals. https://www.Devshopline.com/nutriti on/daily-weighing VEGAN PROTEIN LIST SOY Tempeh: 17g protein 8g carbohydrate in 1/2 cup, Shelled Edamame: 9g Protein, 8g carbohydrate in 1/2cup Tofu: 9g protein,2 g carbohydrate per 3oz Soy Milk: 7g Protein, 15g carbohydrate in 1 cup Nutritional Yeast 8g Protein, 5g Carbohydrate in 2TBSP (16g) Seitan 30g Protein, 6.8g Carbohydrate in 1/2 cup Whole Grains Quinoa: 8g protein in 1cup Wild rice 6.5g protein in 1 cup Legumes Lentils 12g protein, 23g carbohydrate in 1/2 cup cooked Chickpea 6g protein, 17g carbohydrate in 1/2 cup cooked Black Beans 7g protein, 19g carbohydrate in 1/2 cup cooked Green Split peas 8g protein, 22g carbohydrate in 1/2 cup cooked Jiménez [place] 8g protein, 20g carbohydrate in 1/2 cup cooked Seeds Pumpkin 8g protein, 3 carbohydrate in 1/4cup Hemp 9g protein, 3 carbohydrate in 3 Tablespoons Tahini 10g protein, 3 carbohydrate in 2 Tablespoons [place]ou 5g protein, 10g carbohydrate in 2 tablespoons Nuts Almonds 6g protein, 6g carbohydrate in 1/4cup Walnuts 4g protein, 4g carbohydrate in 1/4cup Cashew 4g protein, 9g carbohydrate in 1/4cup Peanuts 8g protein, 5g carbohydrate in 1/4cup Peanut butter 7g protein, 6g carbohydrate in 2 TBSP Potatoes Russet potato- 1 medium (173g) 4.5g protein, 37g carbohydrate Red Potato- 1 large (299g) 6.9g protein, 59g carbohydrate Sweet Potato - 1 medium (114g) 2.3g protein, 24g carbohydrate Sprouted grain bread Juma bread- per slice 5g protein, 15g carbohydrate Vegetables Artichoke- 4.2g protein, 13g carbohydrate in 1 medium (128g) Green Peas- 8g protein, 21g carbohydrates in 1 cup Brussel Sprouts - 3g protein, 8g carbohydrate in 1 cup [place]- 4.3g protein, 19g carbohydrate in 1/2cup Spinach- 1g protein, 1g carbohydrate in 1 cup 3g carb8g carb 20g protein, 4 carbohydrate per scoop QUICK VEGAN PROTEIN PRODUCTS/SNACKS: NOT high in protein- BUT LOW CARB SUBSTITUTE FOR NOODLES Educational Podcasts: The Dr. Yee Show- Real Conversations about Health and Weight *April 09, 2024, how to determine your weight Gain Pattern to pick a weight loss medication or lifestyle plan *February 20, 2024, NEAT, Non- exercise activity thermogenesis - yes taking the stairs is good for you! *February 06, 2024, What to do when your weight loss plateaus * May 16, 2023 what you need to know about Carbohydrates and Weight *April 25, 2023 Protein why we need it and how to eat more Protein *April 04, 2023 Menopause and Weight Gain- All the Details with Dr. Leslie Nesbitt *March 14, 2023 The Science Behind Ultra Processed Food and Weight Gain *December 27, 2022 Effects of sleep and Stress of Weight and Health with Dr. Niru Doll-Withers, DO * December 20, 2022 Recognizing and Resolving Emotional Eating with Dr. Jim Obesity: A Disease *December 20, 2022 Episode 80 Clinical conversations: The Role of Physical Activity in Weight Management * April 01, 2023 Episode 84 Clinical Conversations: NAFLD, The [place] Disease of Metabolic Syndrome *March 312019 Episode 20 Article Reviews: The Role Ultra Processed Diets Play in Weight Gain *March 12, 2020 Episode 21 Clinical Conversations: Breaking Weight Plateaus The Obesity Guide Podcast with Augustine Jim MD The Drive, Param Flores MD Conquer Your Weight, Apryl Zendejas MD Docs who lift podcast, Hattie Hendricks and Manpreet Schneider Creating a Mindful Eating Environment: 10 Mindless Eating Solutions If you're looking for easier ways to make healthy changes to your diet and lifestyle, consider these simple mindless eating solutions for staying on-track with nutrition: Serve Salad and Vegetables First. Before bringing out your main dish, serve salad and vegetables first to ensure you're eating enough of this important food group. This strategy will also help you eat less of the rest of your dish which is likely higher in calories, etc. Serve Your Main [facility] on the Stove or Counter. Studies show that we're likely to eat less if our food is placed on the stove or counter rather than right in front of us. Eat on Smaller Plates. Similar to the strategy mentioned above, studies show that you're likely to consume less food if you're eating from a smaller plate. This is likely due to the increase of smaller portion sizes. Turn off Your Television. Watching television as you eat can be highly distracting, and it affects your ability to eat mindfully. For example: you're less likely to notice when you're full, so you might consume excess calories. Keep Mostly Water On-hand. Calories from drinks can add up quickly, especially in fruit juices, alcohol and soft drinks. By minimizing the amounts of those drinks on-hand, you're more likely to consume water when you're thirsty - and water has amazing health benefits! Keep Your Kitchen Organized. An organized refrigerator, counter and cabinet space makes you more likely to find and choose the foods which are healthiest for you. On the contrary, a messy kitchen space may make you more apt to grab the first item you see. Pre-cut Your Fruits and Vegetables. Let's admit it: We're more likely to put off eating produce if we have to go through the burden of cutting it first. Pre-cut fruits and vegetables will eliminate this extra step. Have at Least Six Single Servings of Lean Protein On-hand. This includes lean meats such as turkey and chicken, yogurt, eggs, nuts, beans and legumes. By having plenty of lean protein on-hand, you can better manage your appetite and hunger levels. Keep All Snack Foods in One Inconvenient Cupboard. You're less likely to reach for unhealthy snack foods if they're not all gazing up at you from plain sight! Keep Only a Fruit Bowl on Your Counter. This way, if you're one to grab foods based off of their availability, you'll reach for healthier fruits rather than less healthy snack foods. https://www.obesityaction.org/comm unity/news/community-news/create-a -ktxtxmf-indgho-dbwinnmmkkx/ documented in this encounter [facility] 04-18-2024 Telephone encounter Note Spoke to patient directly- will start phentermine 1/2 tablet. Reviewed common SE and red flags when to call or stop medication. Pt will pay out of pocket- do not need to do PA [facility] 04-18-2024 Miscellaneous Notes Spoke to patient directly- will start phentermine 1/2 tablet. Reviewed common SE and red flags when to call or stop medication. Pt will pay out of pocket- do not need to do PA Spoke with patient. Patient is already taking 100 mg of Topiramate daily. Is there another option? Nadia Farrar, MELANIA Left message to call office Please notify patient that zepbound was not covered for the below reasons. Options are to do no medications for three months and try to just work on nutrition and behavior modifications or can do trial of topiramate (off label use) will hold off on stimulant due to her h/o anxiety. See how she does with this. She will start with 1/2 tab at night for 2 weeks then increase to a full tab at night. If she chooses to start I will order tmrw and send the instructions to [facility]. Zepbound denied by insurance: Coverage is provided for patients after a trial of behavioral modification and dietary restriction for at least 3 months. Coverage cannot be authorized at this time. Prior authorization submitted for zepbound through Covermymeds. Waiting for response Left message stating this information. Ann Hanson RN Yes she can continue to take both as needed. And I told her it would need PA - please let her know we are working on it. Please see patients question about the Metamucil and Miralax. Nafisa Marks RN Noted. Please have her check mychart for instructions. Patient notified and is ok trying either Zebound or Wegovy. Patient would like provider to choose the injectable that they feel is best for her. [facility] is preferred pharmacy Lab is able to complete the vitamin D lab. Please see if lab can add the Vit D level from Dr. Mercado that he wanted done in February - I was hoping that was going to be drawn that is why I did not reorder it. Please notify patient LFT look much better- in normal range and her insulin is actually only slightly above where I would like it to be so overall labs look good. She is already on topiramate. She is not a great candidate for Phentermine or other stimulant medication due to anxiety. My recommendation would be to try for injectable like Zepbound or wegovy which appear they may be covered with Prior Authorization. Would she like to proceed? If so have her check her Mychart for instructions and where does she want them sent? documented in this encounter [facility] 04-18-2024 Telephone encounter Note Spoke with patient. Patient is already taking 100 mg of Topiramate daily. Is there another option? Nadia Farrar, MELANIA [facility] 04-17-2024 Telephone encounter Note Left message to call office [facility] 04-17-2024 Telephone encounter Note Please notify patient that zepbound was not covered for the below reasons. Options are to do no medications for three months and try to just work on nutrition and behavior modifications or can do trial of topiramate (off label use) will hold off on stimulant due to her h/o anxiety. See how she does with this. She will start with 1/2 tab at night for 2 weeks then increase to a full tab at night. If she chooses to start I will order tmrw and send the instructions to [facility]. [facility] 04-17-2024 Telephone encounter Note Zepbound denied by insurance: Coverage is provided for patients after a trial of behavioral modification and dietary restriction for at least 3 months. Coverage cannot be authorized at this time. [facility] 04-17-2024 Telephone encounter Note Prior authorization submitted for zepbound through Covermymeds. Waiting for response [facility] 04-13-2024 Telephone encounter Note Left message stating this information. Ann Hanson RN [facility] 04-13-2024 Telephone encounter Note Yes she can continue to take both as needed. And I told her it would need PA - please let her know we are working on it. [facility] 04-13-2024 Telephone encounter Note Please see patients question about the Metamucil and Miralax. Nafisa Marks RN T [facility] 04-13-2024 Telephone encounter Note Noted. Please have her check [employer] for instructions. [facility] 04-12-2024 Telephone encounter Note Patient notified and is ok trying either Zebound or Wegovy. Patient would like provider to choose the injectable that they feel is best for her. [facility] is preferred pharmacy [facility] 04-12-2024 Telephone encounter Note Lab is able to complete the vitamin D lab. [facility] 04-12-2024 Telephone encounter Note Please see if lab can add the Vit D level from Dr. Mercado that he wanted done in February - I was hoping that was going to be drawn that is why I did not reorder it. Please notify patient LFT look much better- in normal range and her insulin is actually only slightly above where I would like it to be so overall labs look good. She is already on topiramate. She is not a great candidate for Phentermine or other stimulant medication due to anxiety. My recommendation would be to try for injectable like Zepbound or wegovy which appear they may be covered with Prior Authorization. Would she like to proceed? If so have her check her Mychart for instructions and where does she want them sent? [facility] 04-10-2024 Instructions Fallon Larson MD - 04/10/2024 10:08 AM EDT Images from the original note were not included. Weight Management: You have taken the initiative to become a healthier version of yourself and to decrease the risks that come with the diagnosis of obesity or being overweight. We are happy to help you along this journey but know this is a lifetime commitment to yourself. Losing just 3-10 % of your body weight can decrease your risks of many other serious diseases like diabetes, heart disease, osteoarthritis, hypertension, cancer and so many others. During this time you will have triumphs, setbacks and plateaus- your body will fight against you but we are here to give you the tools and the resources to continue to reach your goals. We recommend during this time that you track your weight daily or at least five times per week as well as tracking your nutrition. You may track your activity but do not use hitting your fitness goals as a reward system as this can derail your success. We recommend weekly physical activity of 150-200 min/week-although physical exercise, this will be especially important for weight maintenance. Exercise can have many other benefits including improving insulin resistance, improving balance, bone health, improving mental health and cardiovascular health. Do not feel overwhelmed - we will discuss this more at your visits. Our time will be limited with each visit but we will try to touch on factors that are important to you and to your overall goals. We will try to set a goal at the end of each visit and then decide on what we want to accomplish with your upcoming visits. On your After Visit Summary (AVS), we will provide you with information that may be useful during this journey so please remember to read the information given. Check your AVS a few days after your appointment because we may have added more information specifically for you. Remember that if you are placed on medications, they are tools that can help you succeed but you must put in the work. Your nutrition will be the main factor. There are medications that work well for some and not for others- so it may take time to find the right combination for your body's needs. Please remember that factors such as other health co-morbidities one might have, as well as insurance coverage, will play a factor in determining which medications you can take. Most of the newer medications that are all the craze ,injectables, may not be covered or will only be covered if you fail months of oral medications or have Type 2 diabetes so please be patient with the process. It would be beneficial for you to determine what your insurance covers as far as Anti-Obesity Medications (AOMs), Nutritional Counseling, behavioral intervention and weight loss surgery. Please call your health insurance prior to your first appointment and write down coverage for each of those therapies. Most importantly, remember that ultimately our goal is to help you get to a healthier weight which will decrease your overall health risks. We will work together as a team and try to reach your personalized goals as well. Follow-up appointments Please arrive to follow-up visits a minimum of 15 minutes prior to your appointment. Follow-up weight management visits can be virtual. You will need to report a current blood pressure, heart rate (pulse) and weight at the beginning of each virtual appointment so you will need to have a reliable BP cuff, either wrist or upper arm. If you need to reschedule your appointment time or switch from an in-office visit to a virtual visit or vice versa, you need to call our office as we have designated appointment slots. This should not be done on [facility] as you will not be scheduled appropriately and will need to be rescheduled. We appreciate that you have entrusted us with your health and know that we are committed to this process with you. Sincerely, Fallon Costa MD, SUYAPA RAMOS & Yaneth Marques CNP Advanced Education from the Obesity [employer] Association Obesity Obesity is a disease that affects nearly one-third of the adult [place] population (approximately 60 million). The number of overweight and obese Americans has continued to increase since 1960, a trend that is not slowing down. Today, 64.5 percent of adult Americans (about 127 million) are categorized as being overweight or obese. Each year, obesity causes at least 300,000 excess deaths in the [place] and healthcare costs of [place] adults with obesity amount to approximately $100 billion. (AOA) Obesity is a complex, multi-factorial chronic disease involving: Environmental (social and cultural) The tendency toward obesity is a result of our environment: lack of physical activity along with high-calorie, low-cost foods. Home, work, school, and even the community can inhibit a healthy lifestyle. Genetic (Hereditary plays a large role in determining how susceptible people are to overweight and obesity). Genes also influence how the body llamas calories for energy and stores fat. Physiologic, metabolic, behavioral (eating too many calories while not getting enough exercise) and psychological components. It is the second leading cause of preventable in the [place] Behavioral changes brought on by economic development, modernization and urbanization have been linked to the rise in global obesity. Calculating BMI Body Mass Index (BMI) is a measurement tool used to determine excess body weight. Overweight is defined as a BMI of 25 or more, obesity is 30 or more, and severe obesity is 40 or more. You can visit www.nhlbi.nih.gov to estimate your BMI. Obesity Related Health Conditions The morbidity and mortality risk from being overweight is proportional to its degree. Individuals with morbid obesity, therefore, have the highest risk for developing numerous illnesses that often reduce mobility and quality of life due to their excess weight. In particular, type 2 diabetes, gallbladder disease and osteoarthritis have been found to increase concurrently with higher BMI. Premature , a 20-year shorter life span, has also been found in individuals with morbid obesity. All of the systems that make the body function are affected by morbid obesity. Type 2 diabetes Gallbladder disease and gallstones Liver disease Osteoarthritis, a disease in which the joints deteriorate. This is possibly the result of excess weight on the joints. Gout, another disease affecting the joints Pulmonary (breathing) problems, including sleep apnea in which a person can stop breathing for a short time during sleep Reproductive problems in women, including menstrual irregularities and infertility Gastroesophageal reflux/heartburn Hypertension Heart Disease Depression Psychological disorders/social impairments Urinary Stress Incontinence Obesity is also linked to higher rates of certain types of cancer. Obese men are more likely than non-obese men to from cancer of the colon, rectum, or prostate. Obese women are more likely than non-obese women to from cancer of the gallbladder, breast, uterus, cervix, or ovaries [email or web address] - Eat primarily whole foods. Limit carbs, especially processed carbs. Eat - Meat, vegetables and fruits with skin on if possible, eggs, cheese. - Do not drink your calories - 30 grams of protein for your first meal of the day decreases your hunger during the day by up to 40 %. Options include: Premier Protein or generic 30 gm protein 1 gm sugar or 5 eggs or 2-3 eggs and some unbreaded meat and/or cheese. No fruit, vegetables, bread, grain, yogurt, Smoothies, etc. - Walk for 15 minutes immediately after meal. Nutrition Reminders: NO NAKED CARBS!! Protein >= Carbs for each meal (if you are going to eat 50g carbs for lunch you should eat 50g protein or more). If you do not eat your carbs for lunch you do not get to save them for dinner- you use them or lose them. Balance your Protein between meals. Unless told otherwise your Minimum protein each day is 30grams per meal but don t be afraid to eat more. Focus on WHOLE FOODS if you can as your Gut Microbiome will benefit and you will feel more satisfied - the only caviot to this is protein shakes if needed. Water intake should be a minimum of 64oz per day- but more is better (to an extent) unless you have a medical condition that requires you to keep it to a minimum. Nothing is off limits- this is not about restricting yourself- this about learning what your body can have and still respond well to and learning how to balance food and still feel good. Track your food, weigh your food, measure your portion sizes as most people underestimate their food by approximately 40%. You should be tracking your Carbohydrates and Protein daily. It s ok if you had a bad day- write it down and move on! Weigh yourself daily or at least 5 times per week, it will help to keep you accountable. If you are hungry- think about your stress level, your sleep (did you get 7.5-9hrs?) and your protein consumption- if you did not meet your goals then those could be contributing to your hunger. During weight loss phase it is ok to use two protein shakes per day and eating one meal along with it - studies have shown you will lose more weight and keep it off. Take a multivitamin daily Sit less Move more- Exercise including resistance training is very important for your health and if you are not getting routine exercise right now there will come a point when it will become an important piece of this process. High Protein Snack Ideas 1. Jerky 2. Stella mix without dried fruit 3. [place] roll-ups 4. Israeli yogurt 5. Veggies and yogurt dip 6. Tuna 7. Hard-boiled eggs 8. Peanut butter with celery 9. Cheese slices/ Cheese Stick 10. Handful of almonds, peanuts or walnuts 11. Cottage Cheese 12. Beef sticks 13. Protein bars 14. Canned [place] 15. Pumpkin seeds 16. Nut butter 17. Protein shakes 18. Avocado and chicken salad 19. Egg muffins 20. Leftover protein or lunch meat 21. 1/2 c blended cottage cheese with 1 Tbsp sugar-free dry cheesecake pudding mix 12g protein 10 carb 22. Pudding - 1 30 gm protein shake with 1/2 pkg sugar-free pudding 4 svgs - 7.8 gm protein, 5 carb each svg 23. SF Sunkist or Root Beer with 1-2 Tablespoons heavy whipping cream 24. Mini frozen desert bites - layer protein yogurt, skinny syrup and crushed nuts and freeze Meal replacements: Meal Replacements Plant-based protein bars Meal replacements. One option that works for some people is to use meal replacements, as in the DiRECT and Look AHEAD trials.The available options in Look AHEAD included shakes, bars, and meals from a variety of companies ([employer], HMR, Optifast, and SlimElastra). The calorie content was 150 to 220 calories, depending on the product. People who used meal replacements 12 times a week instead of preparing their own meals lost about 11% of their weight in the first year, whereas those who used just two per week lost about 6% of their weight. Keep in mind, though, that people in the trial who used meal replacements also tended to consume a healthier diet over all; they were more likely to have met their goals for dietary fat, fruits and vegetables, and dairy foods, and to have cut back on sweets, than those who didn t use meal replacements. Similarly, in the DiRECT trial, participants consumed special nutritionally complete shakes and soups (the Counterweight-Plus program) for the first 12 weeks.If you opt for meal-replacement drinks, bars, or frozen entrees, here are some criteria to look for: calories, 150 to 300 fat, 3 to 10 grams protein, > 20 grams sugar < 5 g Meal replacements are typically fortified with vitamins and minerals and contain some fiber. Because they are calorie controlled, the amount of added sugars is usually minimal. If you want to try this approach to boost weight loss, ask your dietitian or another member of your health care team how to incorporate the replacements into your meal planning and discuss whether you might need to reduce your doses of diabetes medications to prevent hypoglycemia (low blood sugar) as you cut calories and lose weight. It is important to find a meal-replacement product that suits your taste. If you prefer not to consume processed foods, you can make your own portion-controlled versions. Note that meal replacements don t work for everyone. While some people like meal-replacement shakes, bars, and soups and find them to be a convenient way to sustain a reduced calorie intake over time, others don t feel satisfied drinking them and often end up simply adding them to what they d normally eat--which could lead to weight gain. What s more, some people have a hard time readjusting to eating real food after they stop using meal replacements. <15 gram carb fruit options Berries have the lowest sugar content 1/2 medium apple - 12.5 carbs 1/2 medium avocado - 6.5 gm carbs 1/2 medium banana - 15 carbs 1/2 cup blueberries - 11 carbs - may actually help you lose weight 1/2 cup fresh cherries -11 carbs 1 medium Jaymie -9 carbs 1/2 cup fresh cranberries - 6.5 carbs 1/2 c grapes - 15 carbs 1/2 medium grapefruit - 10.5 carbs 1/2 cup diced honeydew melon - 8 carbs 1 medium kiwi without skin - 11 carbs 1/2 cup sliced mayda -14 carbs 1 medium nectarine - 15 carbs 1 medium orange -15.5 carbs 1 medium peach -14.5 carbs 1/2 cup fresh pineapple -11 carbs 1 medium plum -7.5 carbs 1 prune - 6 carbs 1/4 c raisins - 31.25 carbs 1/2 cup raspberries -7.5 carbs 1/2 c strawberries - 12.7 carbs 1 medium tangerine -12 carbs 1/2 cup diced watermelon - 6 carbs 5 (FIVE) gram carb vegetable options 1 cup raw OR cup cooked: Asparagus Downing sprouts Beets Broccoli Brussel sprouts Cabbage Carrots Cauliflower Celery [place] Eggplant Green beans Lettuce Peppers Snap peas Spaghetti squash Spinach Tomato Turnips Zucchini 15 gram carb vegetable options cup cooked corn or hominy corn on the cob, large (5 oz) cup cooked green peas cup cooked jiménez beans 1 small potato or sweet potato cup cooked potato, plain cup cooked sweet potato, plain 1 cup winter squash (pumpkin, acorn, butternut) 1 cup marinara or pasta sauce - check label cup tomato juice cup tomato puree Beans, Seeds, Nuts cup cooked beans (kidney, rizvi, red, green, etc.) cup cooked lentils cup baked beans 4 tablespoons nut butter Grains Brown rice 1/2 c 5.5g protein 24 carb White long-grain rice 1/2 c 2g protein 22.5 carb Quinoa 1/2 c 4 gm complete protein 25 carb Oatmeal, old fashioned 1/2 c 5g protein 27g carb Protein - no carbs Egg 1 large - 6g Egg white 1 large 3.6g 3 oz is approximately the size of a deck of cards and equals 21 g protein so 4 oz is 28 gm protein Beef, Chicken, [place], Pork, [place] 1 oz 7g Fish, Tuna Fish 1 oz 7g (Starkist tuna packet 2.6 oz 17 gm protein) Seafood (Crabmeat, Shrimp, Lobster) 1 oz 6g Protein shakes (read labels) Premier Protein or generic [employer] Equate, [employer] High Performance- 30g protein & 1g carb - meal replacement Premier Protein powder or generic- 30 gm protein, 1g carb Premier Protein plant protein powder - 25 gm protein, 0 suger/2 carb Vanilla and chocolate (not a meal replacement) Fairlife 30 gram protein - 30g protein & 3g carb BOOST Glucose Control Max 30g Protein Nutritional Drink - 30g protein & 1 carb - meal replacement Slimfast High Protein - 20g protein & 1g carb Ensure Max Protein Nutrition Shake 30g protein & 2 carb Protein AND carbs Beef/[place] Jerky 1 oz dried 10-15g protein - check carb count, can be high if sugar added Slim Zan - 6 gm protein and 4 net carb Great Value original turkey sausage sticks - 7 gm protein and 2 gm carb Delores [employer] Thomas (at [employer]) Original smoked sausage sticks - 8 gm protein and 0 carb Imitation Crab Meat 1 oz - 2g protein & 4g carb Milk, skim 2% or 1% 8 oz - 8g protein & 12g carb Israeli yogurt Full Fat Israeli Yogurt 1 cup - 20.4g protein & 9.1g carb 2% Israeli Yogurt 1 cup - 22.7g protein & 9.1g carb 0% (fat-free) Israeli Yogurt - 1 cup 24g protein & 9.3g carb Aldi Protein Israeli yogurt single svg - 15g protein & 7g carb Chobani Zero Sugar single svg: - 11g protein & 5g carb Dannon Light + Fit 1 single svg - 12g protein & 9g carb Oikos Pro single svg - 20g protein & 8g carb Oikos Triple Zero Israeli Nonfat Yogurt 1 single svg - 15g protein & 7g carb :ratio, KETO Friendly Dairy Snack 1 single svg - 15g protein & 2g carb :ratio Protein 1 single svg - 25g protein & 8g carb Two Good Lowfat Israeli Yogurt, [place], Lower Sugar - 12g protein & 2g carb Yoplait Protein 1 single svg 15gm protein & 5gm carb Cheese each oz Brie 5.9g protein & 0.1g carb Cheddar Cheese 7g protein & 0.4g carb Mozzarella Cheese 6.3g protein & 0.6g carb Chuck Cheese 6.7g protein & 0.7g carb Parmesan Cheese 10g protein & 0.9g carb Cream Cheese 1.7g protein & 1.2g carb Feta 4g protein & 1.2g carb Rwandan Cheese 7.6g protein & 1.5g carb Lou s Low Fat Cottage Cheese 1/2cup 12g protein & 4g carb Legumes Lentils cup 9g protein & 20g carb Jiménez beans cup 7g protein & 20g carb Kidney, Black, [place], Cannellini beans cup 8g protein & 20g carb Soybeans 1/2 c 14g complete protein & 8.5g carb [place] milk, unsweetened 8 oz 1g protein & 2g carb Soy milk 8 oz 3.5g protein & 1.6g carb Tofu 1/2 cup 10g protein & 2.3g carb Peanut butter, natural 2 Tbsp 7-8g protein & 4g net carbs, 190 calories PB2 powder 2 Tbsp 6g protein & 5g carb Nuts and Seeds per oz Almonds - 5.9g protein & 6.1g carb [place] Nuts - 4.0g protein & 3.4g carb Cashews - 5.1g protein & 9.2g carb Hazelnuts - 4.2g protein & 4.7g carb Hemp seeds 3 T/30 gms - 9.5 gm complete protein and 2.5 gm carb Peanuts - 7g protein & 4.6g carb Pecans - 2.6g protein & 3.9g carb Pistachios - 5.8g protein & 7.8g carb Pumpkin Seeds - 6.9g protein & 5g carb [place] Seeds - 5.8g protein & 5.6g carb Walnuts - 4.3g protein & 3.8g carb VEGAN PROTEIN LIST SOY Tempeh: 17g protein 8g carbohydrate in 1/2 cup, Shelled [place]ame: 9g Protein, 8g carbohydrate in 1/2cup Tofu: 9g protein,2 g carbohydrate per 3oz Soy Milk: 7g Protein, 15g carbohydrate in 1 cup Nutritional Yeast 8g Protein, 5g Carbohydrate in 2TBSP (16g) Seitan 30g Protein, 6.8g Carbohydrate in 1/2 cup Whole Grains Quinoa: 8g protein in 1cup Wild rice 6.5g protein in 1 cup Legumes Lentils 12g protein, 23g carbohydrate in 1/2 cup cooked Chickpea 6g protein, 17g carbohydrate in 1/2 cup cooked Black Beans 7g protein, 19g carbohydrate in 1/2 cup cooked Green Split peas 8g protein, 22g carbohydrate in 1/2 cup cooked Jiménez [place] 8g protein, 20g carbohydrate in 1/2 cup cooked Seeds Pumpkin 8g protein, 3 carbohydrate in 1/4cup Hemp 9g protein, 3 carbohydrate in 3 Tablespoons Tahini 10g protein, 3 carbohydrate in 2 Tablespoons Mamadou 5g protein, 10g carbohydrate in 2 tablespoons Nuts Almonds 6g protein, 6g carbohydrate in 1/4cup Walnuts 4g protein, 4g carbohydrate in 1/4cup Cashew 4g protein, 9g carbohydrate in 1/4cup Peanuts 8g protein, 5g carbohydrate in 1/4cup Peanut butter 7g protein, 6g carbohydrate in 2 TBSP Potatoes Russet potato- 1 medium (173g) 4.5g protein, 37g carbohydrate Red Potato- 1 large (299g) 6.9g protein, 59g carbohydrate Sweet Potato - 1 medium (114g) 2.3g protein, 24g carbohydrate Sprouted grain bread Juma bread- per slice 5g protein, 15g carbohydrate Vegetables Artichoke- 4.2g protein, 13g carbohydrate in 1 medium (128g) Green Peas- 8g protein, 21g carbohydrates in 1 cup Brussel Sprouts - 3g protein, 8g carbohydrate in 1 cup [place]- 4.3g protein, 19g carbohydrate in 1/2cup Spinach- 1g protein, 1g carbohydrate in 1 cup 3g carb8g carb 20g protein, 4 carbohydrate per scoop QUICK VEGAN PROTEIN PRODUCTS/SNACKS: NOT high in protein- BUT LOW CARB SUBSTITUTE FOR NOODLES Why You May Want to Weigh Yourself Every Day At any given moment, an estimated 24% of men and 38% of women in the [place] are trying to lose weight (1Trusted Source). Meanwhile, obesity has skyrocketed and working-age adults are gaining about 2.2 pounds (1 kg) annually, on average (2Trusted Source, 3Trusted Source). Recent studies have shown that daily self-weighing may be a powerful tool for both losing and maintaining weight. However, many people believe that weighing yourself daily contributes to bad mental health and disordered eating habits. So what should you believe? This article sets the record straight on whether you should start weighing yourself daily. Weighing Yourself Daily Helps You Lose More Weight The simple act of self-weighing has received lots of attention and stirred up controversy for years. Some people have even thrown away their scale, claiming that it s a highly misleading weight loss tool that results in bad self-esteem and disordered eating habits (4, 5). However, recent studies generally agree that daily weighing is associated with greater weight loss and less weight regain than less-frequent self-weighing (6[employer]usted Source, 7, 8, 9). One study showed that participants who weighed themselves daily for six months lost 13 more pounds (6 kg), on average, than those who weighed themselves less frequently (10. What s more, those who weigh themselves daily tend to adopt more favorable weight control behaviors, exercise better restraint toward food and eat impulsively less often (10, 11). Interestingly, adopting healthy weight-related behaviors has been shown to be especially important when people emerge from adolescence into adulthood (12). One study in participants aged 18-25 showed that daily self-weighing resulted in better weight loss than less-frequent weighing (13). The researchers concluded that daily self-weighing is a particularly valuable self-regulation tool for this age group. Furthermore, another study showed that people who weighed themselves every day ate 347 fewer calories per day than those who did not. After six months, the group that weighed themselves daily ended up losing a whopping 10 times more weight than the control group (14). BOTTOM LINE: Daily self-weighing may cause people to lose more weight and gain less of it back, compared to less-frequent weighing. Daily Weighing May Motivate You and Improve Self-Control Being aware of your weight is a lama factor in successful weight loss. Awareness of your weight trend -- that is, whether your weight is going up or down -- is also important. In fact, weighing yourself more often is linked to weight control, while weighing yourself less often has been associated with weight gain. One study found that participants who weighed themselves less often were more likely to report increased calorie intake and decreased restraint toward food (15). Self-weighing promotes self-regulation and awareness of your weight trend and weight-related behaviors. That s why it generally results in greater weight loss (14). Although the exact number on the scale may be unimportant, monitoring weight loss progress motivates you to keep going and generally improves weight-related behavior and self-control. Also, by being more aware of your weight, you can quickly react to lapses in your progress and make necessary adjustments to maintain your goal. Since most people are able to sustain a habit of daily self-weighing, the adherence and acceptability of it is generally quite high (16[employer]usted Source, 17, 18, 19, 20). It s a minor addition to your daily routine that may help you reap major benefits for your weight. BOTTOM LINE: Daily self-weighing helps you maintain awareness of your weight. Monitoring weight loss progress further motivates you to keep going and improves your self-control. Daily Weighing Helps You Keep the Weight Off Frequent self-weighing has been shown to be a great way to prevent weight gain in the long-term (15, 2, 22, 23). One study investigated how much self-weighing frequency predicted weight loom changeover operator two years in working adults (24[employer]). It found that there was a significant link between self-weighing frequency and weight change. In normal-weight individuals, daily weighing resulted in a slight weight loss, while those who weighed themselves monthly gained 4.4 pounds (2 kg), on average. However, the largest difference was in overweight individuals. Those who weighed themselves daily lost 10 pounds (4.4 kg), while those who weighed themselves monthly gained 2.2 pounds (1 kg), on average (24). Another study came to a similar conclusion, showing that self-weighing was a significant predictor of body weight over time. Participants lost an extra pound (0.45 kg) of body weight for every 11 days they self-weighed (25). The main reason why this is so effective is that consistent self-weighing allows you to catch weight gain before it escalates and make the necessary changes to prevent more weight gain (15). BOTTOM LINE: Daily weighing may help prevent long-term weight gain, especially in overweight people. Weighing Yourself Daily Is Not as Bad as People Think Not so long ago, frequent self-weighing was thought to be damaging to your mental health. This notion still exists today. Self-weighing is claimed to have negative effects on your mood by continuously reinforcing that your body size is not ideal or appropriate, resulting in an increased risk of developing an eating disorder (4Trusted Source, 5Trusted Source). Although this may be true in a small group of people, most studies have repeatedly come to a different conclusion (9Trusted Source, 26Trusted Source, 27Trusted Source). The available research suggests there is very little evidence that frequent self-weighing is a cause of negative mood or body dissatisfaction, especially as part of a weight loss program (8Trusted Source, 12Trusted Source, 14Trusted Source, 26Trusted Source, 28Trusted Source, 29Trusted Source). In fact, studies indicate that frequent self-weighing may increase body satisfaction, rather than decrease it (9Trusted Source). That said, there is a group of people who may develop a negative body image, low self-esteem or undesirable eating behaviors as a result of daily self-weighing (30[employer]usted Source). If you find that daily self-weighing causes you to have bad feelings about yourself or your eating behaviors, you should find other methods to measure your progress. BOTTOM LINE: Most studies do not link frequent self-weighing to negative mood or body dissatisfaction. Some even associate them with higher body satisfaction. How to Weigh Yourself for Best Results The best time to weigh yourself is right after you wake up, after going to the bathroom and before you eat or drink. Your weight tends to fluctuate less in the morning than later in the day when you ve had plenty to eat and drink. That is also why people weigh the least in the morning. Also, it is best if you always weigh yourself in similar clothing each day. However, you need to keep in mind that your weight may fluctuate from day to day and can be affected by many factors, including: What you ate or drank the previous day Bloating or water retention Menstrual cycle Whether you ve had bowel movements recently Therefore, it is important to assess the trend of your weight over a longer period of time, instead of drawing conclusions from each and every weighing. A basic scale will do just fine. However, many scales also have the ability to measure your body mass index (BMI), body fat percentage and muscle mass, which may help you get a better picture of your progress. There are also several apps available for your phone or computer that allow you to easily enter your daily weight and see the trend of your weight change. Happy Scale for iPhone and Radha for Android are two such apps. BOTTOM LINE: It is best to weigh yourself right after you wake up, after going to the bathroom and before you eat or drink anything. Other Ways to Track Your Progress Although self-weighing may be a valuable tool, it has some limitations. If you re exercising and gaining muscle, the scale may not show your progress and instead simply show that you have gained weight. While losing weight can indicate progress, a scale does not differentiate between healthy weight (muscle) and unhealthy weight (fat). Therefore, it may be good to add other ways of tracking your progress to your regimen. Here are some examples: Measure circumference: Muscle has much less volume than fat, so your circumference may be decreasing even if your weight stays the same or goes up. Measure body fat percentage: By measuring your body fat percentage, you can observe changes in fat mass, regardless of your weight. Take pictures of yourself regularly: You can observe any changes in your physique by comparing photos of yourself in similar clothing. Note how your clothes feel: Any changes in your weight will probably affect how your clothes fit. Feeling them become looser or tighter is one of the best indicators of changes in your body. BOTTOM LINE: Other ways to track your progress include measuring your circumference, measuring your body fat percentage and taking pictures of yourself. Take Home Message Weighing yourself every day can help increase your awareness of your weight and weight-related behaviors. It may help you lose more weight and prevent you from gaining that weight back in the long-term. Daily self-weighing may just be that extra motivation you need to achieve your weight goals. https://[email or web address].com/nutriti on/daily-weighing 10 Easy Ways to Increase Your NEAT (Non-exercise activity thermogenesis) One of the best ways to lose those those extra pounds for good and keep it off is to make daily habit changes that can help burn those extra calories during activities you would normally do regardless. What I am talking about is increasing your NEAT. What is NEAT? It is Non-exercise activity thermogenesis. It is the activity that you are able to add into your daily routine outside of the gym that can help you in the long run. It can help you lose those ten pounds not this month, but over the next 12 months. In the grand scheme of things, would you not want to be ten pounds consumer electronics merchandiser come next year? Now it is time for me to show you how. For a moment, imagine for me that you we are back before you started going to the gym. Imagine you were slowly gaining about a pound every two to three months. After 3 years of not exercising or working out you realized you are 10 pound heavier. All your clothes feel a little tighter and you just do not feel good in your own skin like how you used to. One day climbing up a flight of stairs you become way too easily winded, and not just that, but your knees are hurting. For some people, this is all too real. That was the wake up call to go to the gym to start exercising. Yet, why do you exercise when you gain weight? The reason is because you were taught that when you begin exercising, you begin to lose the weight you previously put on. The reason for the weight loss is because you have started to burn more calories compared to what you have consumed through your diet. When it comes to fat loss, you want to have a calorie deficit of about 500 calories a day so that about after a week you will be 3500 calories short. Your body is naturally programmed then to pull those calories of energy out of your stored fat. One pound of fat is roughly equal to 3500 calories. So when you burn those calories at the gym and create that calorie deficit you are burning through that stored fat. Another way you can create a calorie deficit is by changing up your diet. If you reduce the calories you eat by a small margin to create a 500 calories deficit then the same result will happen of burning a pound of stored body fat for every 3500 calories you did not eat that you may normally would have. Now finally for NEAT to come into play. We are going through your normal daily life but now you add some extra Non-exercise activity thermogenesis. You add some daily habits that helped you burn extra calories throughout your day. These extra calories that you burn add to your total daily energy expenditure which means that instead of those calories you were eating becoming stored as fat, you burned those calories, without even stepping into a gym. That is the power of NEAT. Sadly, most individuals do not know of the power of NEAT so most people do gain those ten pounds. Still, NEAT can help you lose that weight gained. Let s say now that you know the power of NEAT you want to incorporate it as part of your daily life and habits with that a positive change of dietary habits and a new exercise program. So let us say you are at the gym going three times a week and hike once a week burning a total of 2500 calories at the end of the week. With that you are improving your eating habits and diet and that has created an additional 2000 calories deficit at the end of the week. So so far a nice sum total of 4500 calories burned in just a single week. Now with a little magical NEAT you add just 100 calories a day of extra activity into your life and therefore an extra 700 calories that you burned in one week! So now you have 5200 calories a week burned between your diet, exercise, and nonexercise activity. Now over a course of a month you have 28,000 calories burned. Over three months time you have 84,000 calories. If you were to burn and have a calories deficit of 84,000 calories that is a sum total of 24 pounds lost! Now if you did not include NEAT into that math you would have lost 21.6 pounds. Still a great amount lost, but after a year you are missing out on those extra 10 pounds you could have lost by barely making a change. Here are 10 examples of NEAT to help you lose weight: WALKING: Walking is an easy activity nearly every one of us can accomplish. All we have to do is increase the number of steps we walk everyday and over time the extra energy used comes from our stores fat. It is also fairly simple to increase the number of steps you walk throughout the day. You can park your car down the street from your house. You can park at the farthest spot when shopping. You can go for an easy morning walk while you sip your morning cup of Jasmeet. All the steps will add up over time. COOKING: Most of us cook at least one meal throughout the day. During this time you can add in some simple movements. When I cook, I like to squat deep when I grab a nugent out of the cabinet. When I m reaching for the spices on the shelf I throw in a push-up. When I m waiting for the vegetables to steam I simply bounce or fidget in place while reading or going on social media. The point is while I m coming I am not standing still. For those times I m eating out, I will fidget in line by bouncing on one foot for a bit then switch it up. Sometimes I ll squat while waiting for my coffee. Again, the point is I keep moving. TELEVISION: I watch TV. I would even be lying to you if I said I hardly watch TV. I would be lying to you if I said I sit or lay down and watch TV. When watching my programs or sports on TV I am stretching. I lay down and stretch out my muscles. I ll use the couch as a steady surface to stretch my back out, my shoulders out, my legs out. I never just sit down and watch TV. I stretch and stay active and honestly it is one of the best habits I have created. It has helped me stay loose and I no longer feel guilty about watching TV. It is a win win. Morning Routine: Everyone has a morning routine that they go through during their work week. This is an easy time to add some extra movement to your day. The moment you get out of bed, do some push-ups. You do not even have to define a specific amount. Just drop down and give me however many you feel like. When you go to start the coffee pot, I want you to give me some jumping jacks. The moment you go and brush your teeth, give me some squats before you start or maybe even while you are brushing your teeth if you feel like really multitasking. Going out to get the morning paper, I want a burpee when you get to that paper. Just add in some simple movements or tasks that are associated with every stop along your morning routine. Evening Routine Same concept of your morning routine except I want you to do more stretching and more of a yoga pose idea with it. When you are going around the house shutting off the lights, take a deep breath and reach up and then down towards your toes. Locking the doors, I want a nice deep lunge stretch to help loosen up those hip flexors. Do simple more relaxing movements. Not only will these little movements help burn those extra calories, they are going to help mentally and physically relax you before you sleep. Your Car Most people are getting in and out of their car at least once a day. Every time you are getting into your car, add some movement. You can do jumping jacks, lunges, squats, some hip hinges, do something. I have known people where they will do as many reps of squats for each minute they expect to be driving. If they were going on a long road trip, they would break up those squats during the rest breaks. This is a very simple way to add in those extra calories burned. Personally I like to try getting into and out of my car without using my hands. Some days I will try to mix up only using one foot or the other with no hands trying to carefully slid out of the car. Ditch the Car: If you do not have a crazy commute to work or when running errands or even going out to eat ditch the car for the evening. Many people forget that they can walk places and it will in fact not take long at all. The walk will make you feel good, burn calories, and will help out our environment. Personally I try to ride my bike to work as often as I can. I know others who go and walk to the grocery store when buying only a handful of items. I know of others who take an uber to work in the morning and walk the distance home. The point is at least once a week ditch the car and ride your bike, walk, skate, or even run somewhere you need to go. Work Do not just sit there. If you have a job where you end up sitting down for an extended period of time you are doing harm to yourself. Luckily you can save yourself. Every 5 minutes you sound get up and stand up and squat down and then sit right back down. Anytime you have a break in your workflow, do a little twist in the chair stretching your back out. If you are stuck there reading your emails, add some arm circles in. You won t even have to get out of your chair for those arm circles. All the little movements add up. So please, do it for yourself and do not just sit there. You & Your Significant Other You don t have to be to have a significant other. Exercising with a bestie, a girlfriend or boyfriend or even a pet is a great way to spend time and feel great. Who does not like a long romantic walk down the beach in the sand? Who would not want to go walk or a hike and enjoy nature? Go and chanelle your dog on all four and be a dog for fifteen minutes. They will enjoy it and so will you. The point is get moving with the your better half and you will be better for it. It will definitely bring the two of you closer as well. Clean Everything Cleaning is a very efficient way to multitask. You are getting those extra calories burned while cleaning whatever you wanted clean anyways. The fun part is make a game out of the cleaning. When I wash my car I see absolutely how fast I can get my car washed and clean. When I begin to vacuum I try to do everything while balancing on one leg or the other. When I sweep my house, I contact printer dry film the broomstick like I am trying to break it. The point is make it fun to clean and make it a good challenge. I put my laundry basket away from the washer and take jump shots with all my clothes into the washer. This is my favorite one and I highly recommend it if you have a it desktop support specialist. The lama is that you remember why you are doing every thing. Keep in mind your own goal. I want you to remember on why you are trying to lose weight in the first place. If you focus on that goal and remember to have fun with all these easy steps and tricks to add those extra calories burned, you will get to where you want to be and have fun in the process. Losing weight is not necessarily hard work. It can be fun if you are open to the idea and willing to look a bit goofy at times. I promise you though every one of these 10 ways to increase your daily NEAT will be effective and will all add up in the end. A great book that I would recommend for anyone reading is the Slight Edge. The book s main theme is that it is the little things done daily that lead to the biggest change. [email or web address] [place] [email or web address]-easy-w rlr-sq-ersyutwb-your-neat/ Why Is Protein So Important for Weight loss? consuming more protein not only reduces body weight but enhances body composition by decreasing fat mass while preserving fat-free mass During weight loss phase protein consumption (with normal kidney function) should be 1-1.6g protein per Kilogram of body weight (1kg=2.2lbs) On average Women need to Aim for a minimum 90g protein per day Consuming higher protein can also prevent weight regain after weight loss Protein consumption increases hormones responsible for satiety (feeling full)- these include Gut hormones like Glucagon-like peptide-1 (GLP-1), Cholecystokinin (CCK), Peptide Tyrosine-Tyrosine (PYY) and decreasing the Gut hormone responsible for causing hunger Ghrelin Protein has an increased thermogenesis effect of food- which means it take more calories to break down protein when consumed compared to carbohydrates or fats Protein also prevents a losing lean mass during weight loss (lose more fat and preserve fat free mass) which helps to increase resting energy expenditure (resting metabolic rate) Every pound of muscle llamas ~ 6 kcal per pound/day vs fat llamas ~ 2kcal per pound/day Carbohydrates - Why do You Crave Them? Eating too many refined carbohyrdates (sugar beverages, pastries, bread, pizza) which raises your blood glucose levels and therefore releasing insulin which in turn causes increase in hunger Carbohydrates suppress Ghrelin quickly but does not maintain the suppression for very long therefore hunger returns more quickly Consuming carbohydrates leads to a release of Dopamine feel good hormone in our brain So how do you Curb these cravings? Eating Whole Foods with more fiber - High fiber carbs are absorbed and digested slowly so it does not impact blood sugar levels as much and will help in making you feel hager for longer; fiber also is healthy for your gut bacteria and can help with constipation. Remember- carbohydrates are not the enemy but know what a proper serving size is, choose nutritious carbohydrates and space them out between meals. Always- eat your protein first followed by your non starchy vegetables followed by your carbohydrates- it will help your body with your glucose and insulin regulation Processed Foods vs Whole Foods- Impact on Weight: People who eat Ultra Processed food tend to consume about 500 calories more per day Ultra Processed foods are considered Calorie Dense so when a person feels full they have typically already over eaten and consumed more calories Whole Foods (unprocessed foods) tend to be more more filling and more Nutrient Dense Unprocessed foods can be more expensive and not realistic for everyone however when you have the choice to consume unprocessed vs Ultra processed foods always pick unprocessed. Why can't people stop eating Ultra Processed foods? They are economical and optimized for taste by [employer] - they are designed to make you want to keep eating them- they feed common cravings and bypass the mechanisms that tell your brain you are full Benefits of eating Whole Foods and cutting out Ultra Processed Foods Increased concentration and focus (decreased brain fog), improved mood, better sleep, Decrease in fatigue, improvement in gut health, decreased inflammation, Likely WEIGHT LOSS Get started cutting down on sugar with these tips: Toss the table sugar (white and brown), syrup, honey and molasses. Cut back on the amount of sugar added to things you eat or drink regularly like cereal, pancakes, coffee or tea. Try cutting the usual amount of sugar you add by half and wean down from there. Swap out the soda. Water is best, but if you want something sweet to drink or are trying to lose weight, diet drinks can be a better choice than sugary drinks. Eat fresh, frozen, dried or canned fruits. Choose fruit canned in water or natural juice. Avoid fruit canned in syrup, especially heavy syrup. Drain and rinse in a colander to remove excess syrup or juice. Compare food labels and choose products with the lowest amounts of added sugars. Dairy and fruit products will contain some natural sugars. Added sugars can be identified in the ingredients list. Add fruit. Instead of adding sugar to cereal or oatmeal, try fresh fruit (bananas, cherries or strawberries) or dried fruit (raisins, cranberries or apricots). Cut the serving back. When baking cookies, brownies or cakes, cut the sugar called for in your recipe by one-third to one-half. Often you won t notice the difference. Try extracts. Instead of adding sugar in recipes, use extracts like almond, vanilla, orange or lemon. Replace it completely. Enhance foods with spices instead of sugar. Try forest, allspice, cinnamon or nutmeg. Substitute. Switch out sugar with unsweetened applesauce in recipes (use equal amounts). Limit Non-nutritive Sweeteners. If you are trying to lose weight, a temporary fix to satisfying your sweet tooth may be with non-nutritive sweeteners. But watch out! Make sure that swapping sugary options for non-nutritive sweeteners now doesn t lead to eating more later. https://www.heart.org/en/healthy-l iving/healthy-eating/eat-smart/sug ar/vorx-llk-kreukfz-rtmy-xi-lazyp Creating a Mindful Eating Environment: 10 Mindless Eating Solutions If you're looking for easier ways to make healthy changes to your diet and lifestyle, consider these simple mindless eating solutions for staying on-track with nutrition: Serve Salad and Vegetables First. Before bringing out your main dish, serve salad and vegetables first to ensure you're eating enough of this important food group. This strategy will also help you eat less of the rest of your dish which is likely higher in calories, etc. Serve Your Main [facility] on the Stove or Counter. Studies show that we're likely to eat less if our food is placed on the stove or counter rather than right in front of us. Eat on Smaller Plates. Similar to the strategy mentioned above, studies show that you're likely to consume less food if you're eating from a smaller plate. This is likely due to the increase of smaller portion sizes. Turn off Your Television. Watching television as you eat can be highly distracting, and it affects your ability to eat mindfully. For example: you're less likely to notice when you're full, so you might consume excess calories. Keep Mostly Water On-hand. Calories from drinks can add up quickly, especially in fruit juices, alcohol and soft drinks. By minimizing the amounts of those drinks on-hand, you're more likely to consume water when you're thirsty - and water has amazing health benefits! Keep Your Kitchen Organized. An organized refrigerator, counter and cabinet space makes you more likely to find and choose the foods which are healthiest for you. On the contrary, a messy kitchen space may make you more apt to grab the first item you see. Pre-cut Your Fruits and Vegetables. Let's admit it: We're more likely to put off eating produce if we have to go through the burden of cutting it first. Pre-cut fruits and vegetables will eliminate this extra step. Have at Least Six Single Servings of Lean Protein On-hand. This includes lean meats such as turkey and chicken, yogurt, eggs, nuts, beans and legumes. By having plenty of lean protein on-hand, you can better manage your appetite and hunger levels. Keep All Snack Foods in One Inconvenient Cupboard. You're less likely to reach for unhealthy snack foods if they're not all gazing up at you from plain sight! Keep Only a Fruit Bowl on Your Counter. This way, if you're one to grab foods based off of their availability, you'll reach for healthier fruits rather than less healthy snack foods. https://www.obesityaction.org/comm unity/news/community-news/create-a -nnpnjho-hyvpvh-xfvfmemfasv/ documented in this encounter [facility] 04-10-2024 History of Present illness Narrative Patient Summary: Hector Leon is a 48 year old female with obesity who presents for an initial evaluation of overweight/obesity to treat and prevent co-morbidities and is interested in combination of behavioral and pharmacological. Motivation for seeking treatment for the disease of overweight/obesity : To get healthier, to feel better. Goal weight: 150 lb Lowest recall weight: 105 lb (20yo) Highest non- recall weight: 282 lb (2yrs ago- lost by documenting food, cut out soda) Patient identified barriers to weight loss: Fibromyalgia, and severe headaches. Weight History: She reports a family history of obesity and early adulthood weight gain. She states her weight gain is related to the following factors, including weight retention, she was on steroids after her delivery. She thinks that the weight gain started after she had her third child. 20-30lbs each child- never lost it after each Difficulty losing weight? Yes History of weight loss with regain? No, just kept gaining weight. - Last Wt 04/10/24 : 112.9 kg (249 lb) Date: 04/10/2024 249 lb BMI: 47.05 5% weight loss = 236 lbs, 10% weight loss = 224 lbs WEIGHT GRAPH: Diet/Nutrition overview: Awake - 7:30 B - coffee azerbaijani sweet cream, apple juice (8oz) [place] wrap taco velásquez, watermelon juice (8oz) , oatmeal (packet), toast, blueberries , turkey sausage , hash browns S - fruit L - chipolte bowl chicken w/ guac, apple/pecan salad w/ chicken , chicken wrap, almonds, pretzels,pizza, S - halo oranges D - tilapia, brown rice spag, carrots, ludwin, garlic bread , beats, beans, cucumbers, veggie pizza slices, cheesy bread , cream cheese ragoons S - peach cobbler blizzard sometimes , sweets Fluids: coffee juice, stopped soda, 100 oz water per day Bedtime - 11:30pm Quality of diet: 24hr recall suggests healthy diet. Characterization of diet:Unstructured, unhealthy snacking, and increased consumption of sugar sweetened beverages. Criminal Analyst of impaired eating habits:lack of satiety, emotion, and does go back for seconds- more protein- meat- loves red meat but can't eat after gallbladder Eating Disorder no Cravings: savory- karmen cheese steaks, sometimes sweets Sleep Duration: 7 hours. JOCELYN NO ; CPAP NO - never had sleep study Stress Stress:no, Cause:Personal parents live with her Obesity Related Comorbidities: Prior Weight Loss Surgery:No PAST MEDICAL HISTORY 12/12/2023: Acute cholecystitis Comment: s/p lap td 2000: Crohn's disease (HCC) Comment: crohns disease, rectal bleeding resolved after hysterectomy. GI in [place] No date: Depression 2007: Dysfunctional uterine bleeding Comment: s/p hysterectomy No date: Dysmenorrhea No date: Eczema No date: Esophageal reflux Comment: Gastroesophageal reflux No date: Fatty liver No date: Fibromyalgia No date: Generalized anxiety disorder 11/23/2023: History of cardiac monitoring Comment: Patient completed event monitor secondary to palpitations. Underlying sinus rhythm with excellent heart rate variability. Heart rate ranged from 50-140, average heart 75. A total of 74 strips were sent to us to review. No correlation with any arrhythmias. No evidence atrial fibrillation noted. This is a normal monitor. 11/17/2020: History of cardiovascular stress test Comment: The patient's resting heart rate was 85 bpm and blood pressure was 112/82 mmHg. The patient exercised according to the Modified Jagdish protocol. Total exercise 6 minutes and 15 seconds. The maximum heart rate was 134 bpm, which is 76% predicted for age. METs achieved was 4.4. The double product achieved was [address]. Peak heart rate was 134 bpm and peak blood pressure was 138/92 mmHg. 10/22/2023: History of echocardiogram Comment: LVEF 55-60%. No significant valvular abnormality. 11/07/2023: History of exercise stress test (without NM imaging) Comment: No electrocardiographic evidence of ischemia. Resting HR 68 bpm and BP was 116/80 mmHg. Exercised according to the Jagdish protocol. Test was terminated due to shortness of breath and leg fatigue. Total exercise time was 4 minutes and 30 seconds. Maximum HR was 157 bpm, which is 90% of the predicted heart rate for age. 08/2023: History of shingles Comment: LUQ, (L) flank, (L) posterior mid back. No date: Lactose intolerance No date: Lichen sclerosus No date: Morbid obesity (HCC) No date: Other acne Comment: Acne No date: Recurrent cold sores No date: Scalp psoriasis No date: Vitamin D insufficiency PAST SURGICAL HISTORY 2009: COLONOSCOPY Comment: multiple for crohns disease. Jorje. Benign polyp 09/21/2005: COLONOSCOPY Comment: active colitis at distal transverse colon No date: COLONOSCOPY Comment: around 2007. [place]. Normal. 01/15/2004: COLONOSCOPY Comment: severe acute and chronic colitis, sml internal hemorrhoids 03/12/2003: COLONOSCOPY Comment: hyperplastic polyp x2, colitis 09/21/2005: EGD Comment: chronic reflux like symptoms, normal looking distal esophagus 12/13/2023: LAPAROSCOPY SURG CHOLECYSTECTOMY No date: LIG/TRNSXJ FLP TUBE ABDL/VAG APPR UNI/BI Comment: Tubal ligation No date: PAST SURGICAL HISTORY OF Comment: wisdom teeth 2006: PAST SURGICAL HISTORY OF Comment: hysterectomy lavhbso No date: PAST SURGICAL HISTORY OF Comment: tonsilectomy FAMILY HISTORY Problem Relation Age of Onset Rheumatologic disease Mother Diabetes Mother Arthritis Mother Hypothyroidism Mother Hypertension Father Lipids Father Rheumatologic disease Father RA Rheumatologic disease Brother RA Stroke Brother Colon Cancer Maternal Grandmother Emphysema Maternal Grandfather Alcohol/Drug Maternal Grandfather alcoholism Coronary Artery Disease Paternal Grandmother Diabetes Paternal Grandmother Stroke Paternal Grandmother Hypertension Paternal Grandfather Coronary Artery Disease Paternal Grandfather Diabetes Paternal Grandfather Stroke Paternal Grandfather Diabetes Son Cervical Cancer Maternal Aunt Social History Tobacco Use Smoking status: Former Packs/day: .25 Types: Cigarettes Quit date: 03/23/1993 Years since quittin.0 Passive exposure: Past Smokeless tobacco: Never Vaping Use Vaping Use: Never used Substance Use Topics Alcohol use: Not Currently Comment: drinking causes LEFT shoulder pain Drug use: Never AOM Medications: Topiramate Weight Promoting Medications: Effexor 75mg Diet/weight loss History: Past weight loss attempts? Dietitian, saw at [facility]. 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 Exercise/increased activity Exercise: Regular exercise: Tries to walk up and down the driveway, ride her 3 wheel bike up and down the drive. Strength/resistance exercise:no Barriers to regular exercise? Painful joints, fibromyalgia, migraines, dizziness. Work-related activity:None, does not work outside of her home, mainly in the garden at a slow pace. 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 PE BP 120/72 Pulse 78 Ht 156.5 cm (5' 1.61) Wt 112.9 kg (249 lb) LMP 01/16/2006 SpO2 98% BMI 46.12 kg/m Waist Circumference: 46 Neck Circumference: 13.25 GENERAL: Female in NAD. Mixed central and gluteofemoral adiposity. SKIN: acanthosis nigricans no, Skin tags: no Hirsutism: no HEENT: PERRL, No supraclavicular adiposity. No dorsal adiposity. ABDOMEN: Large pannus; EXTREMITIES: peripheral edema: no Results: reviewed with the patient No visits with results within 3 Month(s) from this visit. Latest known visit with results is: Appointment on 12/16/2023 Component Date Value Ref Range Status WBC 12/16/2023 6.35 3.70 - 11.00 k/uL Final RBC 12/16/2023 4.58 3.90 - 5.20 m/uL Final Hemoglobin 12/16/2023 13.6 11.5 - 15.5 g/dL Final Hematocrit 12/16/2023 41.1 36.0 - 46.0 % Final MCV 12/16/2023 89.7 80.0 - 100.0 fL Final MCH 12/16/2023 29.7 26.0 - 34.0 pg Final MCHC 12/16/2023 33.1 30.5 - 36.0 g/dL Final RDW-CV 12/16/2023 12.5 11.5 - 15.0 % Final Platelet Count 12/16/2023 322 150 - 400 k/uL Final MPV 12/16/2023 9.9 9.0 - 12.7 fL Final Neutrophils % 12/16/2023 46.9 % Final Abs Neut 12/16/2023 2.98 1.45 - 7.50 k/uL Final Lymphocytes % 12/16/2023 41.7 % Final Abs Lymph 12/16/2023 2.65 1.00 - 4.00 k/uL Final Monocytes % 12/16/2023 8.2 % Final Abs [place] 12/16/2023 0.52 <0.87 k/uL Final Eosinophils % 12/16/2023 2.4 % Final Abs Eosin 12/16/2023 0.15 <0.46 k/uL Final Basophils % 12/16/2023 0.5 % Final Abs Baso 12/16/2023 0.03 <0.11 k/uL Final Immature Granulocytes % 12/16/2023 0.3 % Final Abs Immature Gran 12/16/2023 <0.03 <0.10 k/uL Final NRBC 12/16/2023 0.0 /100 WBC Final Absolute nRBC 12/16/2023 <0.01 <0.01 k/uL Final Diff Type 12/16/2023 Auto Final Protein, Total 12/16/2023 7.5 6.3 - 8.0 g/dL Final Albumin 12/16/2023 3.9 3.9 - 4.9 g/dL Final Calcium, Total 12/16/2023 9.5 8.5 - 10.2 mg/dL Final Bilirubin, Total 12/16/2023 0.6 0.2 - 1.3 mg/dL Final Alkaline Phosphatase 12/16/2023 112 34 - 123 U/L Final AST 12/16/2023 64 (H) 13 - 35 U/L Final ALT 12/16/2023 113 (H) 7 - 38 U/L Final Glucose 12/16/2023 98 74 - 99 mg/dL Final BUN 12/16/2023 8 7 - 21 mg/dL Final Creatinine 12/16/2023 0.80 0.58 - 0.96 mg/dL Final Sodium 12/16/2023 141 136 - 144 mmol/L Final Potassium 12/16/2023 4.3 3.7 - 5.1 mmol/L Final Chloride 12/16/2023 103 97 - 105 mmol/L Final CO2 12/16/2023 27 22 - 30 mmol/L Final Anion Gap 12/16/2023 11 9 - 18 mmol/L Final Estimated Glomerular Filtration Ra* 12/16/2023 92 >=60 mL/min/1.73m Final Impression: Hector Leon is a 48 year old Female with Class III obesity (Body mass index is 46.12 kg/m .) who has early adulthood obesity with gradual weight gain despite several weight loss attempts. The causes of her obesity are multifactorial, biological, psychological and social and environmental. Specific factors include exposure to weight gain promoting medication(s) , increased consumption of high calorie/process foods, irregular eating patterns , suboptimal physical activity, onset of menopause, and post weight retention. She has several weight-related medical comorbidities which increase her cardiovascular mortality risk. There are additional metabolic obesity complications including dyslipidemia, hypertension, elevated LFTs s/o non alcoholic fatty liver disease, PCOS, and vitamin D deficiency. Other medical conditions as above. Regarding her lifestyle, as above, she has several behavioral contributors; her physical activity is non-existent. Overall, it is clear that her quality of life is moderately compromised by her weight. It is likely a combination of weight loss therapies will be needed. She appears motivated today. Plan: -- Based on the severity and resistance of the obesity/overweight with co-morbidities, I believe a open to all options intervention is the best and most appropriate separator tender therapeutic option. -- We discussed several strategies to track food intake and increase mindfulness around eating while will decrease calorie intake. She was counseled on the following: Eating primarily whole foods. Limit carbs, especially processed carbs. Do not drink your calories 30 grams of protein for breakfast decreases your hunger during the day by up to 40 % Premier Protein or generic 30 gm protein 1 gm sugar Walk for 15 minutes immediately a meal. -- Encouraged the patient to improve her physical activity. Although cardiovascular exercise is most beneficial for weight loss initially, we discussed healthy muscle from a combination of resistance training and cardiovascular exercise is the best separator tender plan. An overall goal of 150-200 minutes per week of exercise has been effective in weight loss and maintenance. -- Reviewed that monitoring weight daily and food intake can have a positive impact on overall weight loss and maintenance of weight loss. Activity tracking can be used to stay on target for exercise however should not be used to reward oneself She understands that there can be limitations of pharmacotherapy due to contraindications, side effects and cost. Patient was told to contact her insurance company to see what AOMs and supervised behavioral medical appointments are currently covered. Patient understands she will have more success when following a healthy lifestyle. We reviewed continued use of online tracking of daily weights, food journal and if desired physical activity. We reviewed that during management she is to report any concerning side effects of any pharmacotherapy she is placed on. She understands that she will need routine follow up in the office. Prior to any virtual visits in the future she will need to check her Blood pressure, weight, and pulse. LABS ORDERED Will consider Nutrition at [facility] next visit Bariatric referral placed- scared b/c daughter had to have reversal due to Type 1 Dm Will call patient with labs and discuss medication options. (E55.9) Vitamin D deficiency (primary encounter diagnosis) (K76.0) Fatty liver (K21.9) Gastroesophageal reflux disease without esophagitis (E78.2) Mixed hyperlipidemia (E66.01, Z68.42) Class 3 severe obesity due to excess calories with serious comorbidity and body mass index (BMI) of 45.0 to 49.9 in adult (HCC) (M79.7) Fibromyalgia (Z13.1) Screening for diabetes mellitus (Z13.228) Screening for metabolic disorder (Z13.29) Screening for thyroid disorder Prescription instructions reviewed with patient as applicable. Potential red flag symptoms discussed with the patient. Reviewed appropriate action plan to take if red flag symptoms occur. Patient agreeable to treatment plan. -- follow-up visit in 5 weeks for management of above interventions I spent a total of 70 minutes on the date of the service which included preparing to see the patient, [id number] patient care, completing clinical documentation, obtaining and/or reviewing separately obtained history, performing a medically appropriate examination, counseling and educating the patient/family/caregiver, and ordering medications, tests, or procedures. Fallon Sullivan MD, FACOG, [place] documented in this encounter [facility] 02-02-2024 Telephone encounter Note Received MRI from [facility] placed on providers desk for review. Tanvir Mcgee MA [facility] 02-02-2024 Miscellaneous Notes Received MRI from [facility] placed on providers desk for review. Tanvir Mcgee MA CV PHONE Name of caller : Hector Relationship to patient : Self If not self Will need patient permission to release results or disclose health information with called documented in . Patient identified by Name and Date of . ( Hector Leon, 1975). Yes Number to return call [phone] Reason for Call: Results: Results Calling office requesting result of EEG test, completed on 01/30/24. Patient calling to notify office that she completed EEG on Tuesday. I looked in the system and the preliminary results are available. Patient has appt with other neurologist that we referred her to set for tomorrow. Thank you calling [facility]. You will receive a return call within 48 hours ( or 2 business days if close to the weekend). If you feel that this is an urgent issue and needs immediate attention, it is recommended that you contact your primary care provider office or proceed to your nearest Urgent Care Center of Emergency Room ED for evaluation/treatment. documented in this encounter [facility] 02-02-2024 History of Present illness Narrative documented in this encounter [facility] 02-01-2024 History and physical note Chart Review Parenthetic [comments] and tinted emphasis mine. Consultation is requested for an opinion regarding the evaluation and treatment of Hector Leon. My final impression and recommendations will be communicated back to the referring physician by way of the shared medical record or letter via [place] mail. Hector Leon is referred by cerebrovascular neurologist Dr. Rianna Shea for recurrent, focal, transient neurologic symptoms. He documented: Her episodes of recurrent facial droop lasting 45 minutes or more, followed by headaches and hours of fatigue, with unremarkable MRI brain and normal head and neck vessels is unlikely to be of cerebrovascular etiology, but rather raise concern for focal seizures vs complex migraines vs functional neurological disorder. I will place an order for EEG and refer to general neurology for further work up and management. ====== MRA head and neck wo on 11/30/23 found: No intracranial or extracranial arterial large vessel occlusion or significant stenosis. ====== Routine EEG 01/30/24 - Clinical Summary: 48-year-old right-handed female here for evaluation regarding recurrent neurological events to rule out stroke. Patient admitted to [place] from 10/21 to 10/23 sudden onset facial droop, slurred speech and decreased sensation to left side. CT brain x2 and MRI negative. Patient presented to [place] ED on 10/31 with recurrent chest pain and left side facial droop. CTA of chest/abd/pelvis and CT brain negative. No triggers noted. Afterwards patient feels fatigued, slight headache, difficulty word finding, eyes don't want to focus. Within the last month, patient has been experiencing vision changes. EEG to evaluate. It proved (preliminarily) normal. ====== Problem List includes HLD and and anxiety. Medication List reviewed. ====== Abiodun Li MD [facility] Work Phone: 02-01-2024 History and physical note Chart Review Parenthetic [comments] and tinted emphasis mine. Consultation is requested for an opinion regarding the evaluation and treatment of Hector Leon. My final impression and recommendations will be communicated back to the referring physician by way of the shared medical record or letter via [place] mail. Hector Leon is referred by cerebrovascular neurologist Dr. Rianna Shea for recurrent, focal, transient neurologic symptoms. He documented: Her episodes of recurrent facial droop lasting 45 minutes or more, followed by headaches and hours of fatigue, with unremarkable MRI brain and normal head and neck vessels is unlikely to be of cerebrovascular etiology, but rather raise concern for focal seizures vs complex migraines vs functional neurological disorder. I will place an order for EEG and refer to general neurology for further work up and management. ====== MRA head and neck wo on 11/30/23 found: No intracranial or extracranial arterial large vessel occlusion or significant stenosis. ====== Routine EEG 01/30/24 - Clinical Summary: 48-year-old right-handed female here for evaluation regarding recurrent neurological events to rule out stroke. Patient admitted to [place] from 10/21 to 10/23 sudden onset facial droop, slurred speech and decreased sensation to left side. CT brain x2 and MRI negative. Patient presented to [place] ED on 10/31 with recurrent chest pain and left side facial droop. CTA of chest/abd/pelvis and CT brain negative. No triggers noted. Afterwards patient feels fatigued, slight headache, difficulty word finding, eyes don't want to focus. Within the last month, patient has been experiencing vision changes. EEG to evaluate. It proved (preliminarily) normal. ====== Problem List includes HLD and and anxiety. Medication List reviewed. ====== Abiodun Li MD documented in this encounter [facility] 02-01-2024 History and physical note Office Visit Parenthetic [comments] and tinted emphasis mine. Consultation is requested for an opinion regarding the evaluation and treatment of Hector Leon. My final impression and recommendations will be communicated back to the referring physician by way of the shared medical record or letter via US mail. Hector Leon is referred by cerebrovascular neurologist Dr. Rianna Shea for recurrent, focal, transient neurologic symptoms. He documented: Her episodes of recurrent facial droop lasting 45 minutes or more, followed by headaches and hours of fatigue, with unremarkable MRI brain and normal head and neck vessels is unlikely to be of cerebrovascular etiology, but rather raise concern for focal seizures vs complex migraines vs functional neurological disorder. I will place an order for EEG and refer to general neurology for further work up and management. ====== MRA head and neck wo on 11/30/23 found: No intracranial or extracranial arterial large vessel occlusion or significant stenosis. [She tells me that she had an MRI brain at [facility] September, about the , of this year]. ====== Routine EEG 01/30/24 - Clinical Summary: 48-year-old right-handed female here for evaluation regarding recurrent neurological events to rule out stroke. Patient admitted to [place] from 10/21 to 10/23 sudden onset facial droop, slurred speech and decreased sensation to left side. CT brain x2 and MRI negative. Patient presented to [place] ED on 10/31 with recurrent chest pain and left side facial droop. CTA of chest/abd/pelvis and CT brain negative. No triggers noted. Afterwards patient feels fatigued, slight headache, difficulty word finding, eyes don't want to focus. Within the last month, patient has been experiencing vision changes. EEG to evaluate. It proved (preliminarily) normal. [She was not having her symptoms at the time of the test]. ====== Problem List includes HLD and and anxiety. Medication List reviewed. ====== With that preamble, Chief Complaint: Hector Leon is a 48 year old left handed female who presents with episodes of left facial weakness. It seems to have lessened since my gall bladder was taken out. History of Present Illness ... And I get pain [pressure] behind my left eye; and then after that starts to ease up, it moves to [above the left sikh] then gradually makes its way down to [the left side of my] neck. Sometimes I'll have to sleep to get the pain to go away...sometimes I'll wake up after sleeping and it'll still be there, but not as severe; sometimes, I'll take a [hot] shower; I'll become really nauseated; [if I then vomit, the headache eases.] She also has had constant high-pitched tinnitus in both ears for a couple of years now. She has to ask people to repeat things; she has had audiograms which were abnormal. 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 ====== The patient's daughter, age 26, suffers headaches; her father does not. Her daughter does not get weak during her headaches. The patient's first headaches occurred during teen years. Then, as now, they have always been on the left. Until recently, her left eye was never involved - but the rest of its trajectory was the same. Then, as now, they were a pressure pain. She was not nauseated by them then. She did have to sleep to get rid of them back then, as she does now. She was sonophobic then as now; likewise head movement; and the odor of food cooking. Nowadays, oncoming headlights when driving at night can cause her headache or worsen one if it is already present. Then, as now, if she closes her eyes during a headache she sees colored dots moving around. She does not know when the facial weakness began to accompany her headaches. She presented to the ED for chest pain, and was found to have left lower motor neuron facial paresis. She was over her shingles, it has crusted over; and though she has occasional stabs in her back, and persisting numbness in the path of the shingles (left thoracic) that was different from the chest pain. The surmise is that the chest pain was due to her gall bladder, which was removed in mid November; her chest pain has eased since then. But when she was in the ED in August, she developed a headache, and had the facial weakness. She is still aware of mild left facial weakness [it is evident at rest in a flattened left nasolabial fold; and when she speaks by slightly less parting of her lips on the left]. She has not noted weakness or clumsiness in her left hand during one of these events. Currently, she has one of her headaches 3 times weekly. They have been building in frequency and severity for a long time. The aura of facial weakness occurs once every syut-ihd-[id number]-half. She has had a hysterectomy (no oophorectomy); she thinks that prior to her hysterectomy her headaches might have been timed to her periods. Stress, change in the weather, skipping meals, maybe skipping caffeine, missing sleep, and bananas can trigger them. She is prone to constipation - she has IBS - and take Miralax and Metamucil regularly - making verapamil an unattractive prospect. Neither would tricyclics be a good choice. She has never had kidney stones, in re: candidacy for topiramate or acetazolamide. ------ She has experienced pulsatile tinnitus on occasion. She can't say which side, or whether it accompanied her headaches or not. PAST MEDICAL HISTORY Diagnosis Date Acute cholecystitis 12/12/2023 s/p lap td Crohn's disease (HCC) 2000 crohns disease, rectal bleeding resolved after hysterectomy. GI in [place] Depression Dysfunctional uterine bleeding 2006 s/p hysterectomy Dysmenorrhea Eczema Esophageal reflux Gastroesophageal reflux Fatty liver Fibromyalgia Generalized anxiety disorder History of cardiac monitoring 11/23/2023 Patient completed event monitor secondary to palpitations. Underlying sinus rhythm with excellent heart rate variability. Heart rate ranged from 50-140, average heart 75. A total of 74 strips were sent to us to review. No correlation with any arrhythmias. No evidence atrial fibrillation noted. This is a normal monitor. History of cardiovascular stress test 11/17/2020 The patient's resting heart rate was 85 bpm and blood pressure was 112/82 mmHg. The patient exercised according to the Modified Jagdish protocol. Total exercise 6 minutes and 15 seconds. The maximum heart rate was 134 bpm, which is 76% predicted for age. METs achieved was 4.4. The double product achieved was [address]379. Peak heart rate was 134 bpm and peak blood pressure was 138/92 mmHg. History of echocardiogram 10/22/2023 LVEF 55-60%. No significant valvular abnormality. History of exercise stress test (without NM imaging) 11/07/2023 No electrocardiographic evidence of ischemia. Resting HR 68 bpm and BP was 116/80 mmHg. Exercised according to the Jagdish protocol. Test was terminated due to shortness of breath and leg fatigue. Total exercise time was 4 minutes and 30 seconds. Maximum HR was 157 bpm, which is 90% of the predicted heart rate for age. History of shingles 08/2023 LUQ, (L) flank, (L) posterior mid back. Lactose intolerance Lichen sclerosus Morbid obesity (HCC) Other acne Acne Recurrent cold sores Scalp psoriasis Vitamin D insufficiency Current Outpatient Medications Medication Sig loratadine (CLARITIN) 10 mg tablet EFFEXOR XR 37.5 mg [address] (PROTONIX) 40 mg tablet Take 1 tablet by mouth every afternoon. INV VITAMIN D3 4000 UNIT OR [place] (IRB [id number]) CAPSULE polyethylene glycol 3350 (MIRALAX) 17 gram/dose powder psyllium husk (METAMUCIL) 3.4 gram/5.4 gram powd fluticasone (FLONASE) 50 mcg/actuation nasal spray Use 2 Sprays in each nostril once daily. Rinse mouth after use. clobetasol (TEMOVATE) 0.05 % ointment Apply 1 application to affected area twice daily. TO AFFECTED AREA. oxyCODONE IR (ROXICODONE) 5 mg immediate release tablet Take 5 mg by mouth every 6 hours as needed for pain. acetaminophen (TYLENOL) 500 mg tablet Take 1,000 mg by mouth every 8 hours as needed for pain. lansoprazole (PREVACID) 30 mg capsule Take 1 capsule by mouth daily before breakfast. 1/2 hr before meal. No current facility-administered medications for this visit. ALLERGIES Allergen Reactions Banana GI Upset Eggs [Egg] GI Upset Lactose Intolerance Prednisone Other: See Comments Black stools Social History Tobacco Use Smoking status: Former Packs/day: .25 Types: Cigarettes Quit date: 03/23/1993 Years since quittin.8 Passive exposure: Past Smokeless tobacco: Never Vaping Use Vaping Use: Never used Substance Use Topics Alcohol use: Not Currently Comment: drinking causes LEFT shoulder pain Drug use: Never FAMILY HISTORY Problem Relation Age of Onset Rheumatologic disease Mother Diabetes Mother Arthritis Mother Hypothyroidism Mother Hypertension Father Lipids Father Rheumatologic disease Father RA Rheumatologic disease Brother RA Stroke Brother Colon Cancer Maternal Grandmother Emphysema Maternal Grandfather Alcohol/Drug Maternal Grandfather alcoholism Coronary Artery Disease Paternal Grandmother Diabetes Paternal Grandmother Stroke Paternal Grandmother Hypertension Paternal Grandfather Coronary Artery Disease Paternal Grandfather Diabetes Paternal Grandfather Stroke Paternal Grandfather Diabetes Son Cervical Cancer Maternal Aunt Review of Systems: As above. PHYSICAL EXAM General: Alert, conversant, appropriate, early middle aged, FEMALE, in no apparent distress. Vital Signs: BP 110/81 Pulse 92 Ht 154.9 cm (5' 1) Wt 115 kg (253 lb 8.5 oz) LMP 01/16/2006 BMI 47.90 kg/m - reviewed. Neck: Supple, without Lhermitte's phenomenon. Cardiovascular: Carotids 2 and symmetric without bruits. Neurologic: Cranial Nerves: There is mild lower facial asymmetry, as noted in the HPI. In addition, on opening her mouth to examine the lower cranial nerves, the asymmetry (the diminished parting of the left side of her lips) becomes more manifest. Fundoscopic reveals discs whose borders are somewhat indistinct. Testing the blind spots with a 5 mm red pin to confrontation finds the OD blind spot enlarged superiorly; OS proved normal. Monocular visual medrano intact to finger counting. Pupils equal, round and reactive to light. Pursuit eye movements normal. Facial sensation normal to pin. Hearing normal to 1024 Hz tuning fork. Palatal movement, phonation, and resonation normal. Trapezius and SCM 5/5 and symmetric. Tongue movement symmetric. Sensory: Normal on testing pin, vibration, and joint position sense. Simultaneous light touch of the hands found no extinction. Motor: Strength was 5/5 and symmetric on testing finger abduction, finger extension, elbow flexion, elbow extension, shoulder abduction, toe dorsiflexion, ankle dorsiflexion, ankle plantar flexion, knee flexion, knee extension, and hip flexion. Tone was normal. Posture was normal. There was no atrophy. There were no fasciculations. There were no involuntary movements. Coordination: Ktyfjh-ohck-vpnzld was normal. Finger and toe wiggling rapid alternating movements were normal. Standing in Romberg's position with eyes open and closed was normal. Gait: Normal. Deep Tendon Reflexes: Plantars were flexor bilaterally. Biceps 2 and symmetric. Triceps 2 and symmetric. Patellar 2 and symmetric. Achilles 2 and symmetric. Mental Status: Alert, conversant, and appropriate. IMPRESSION AND PLAN: Migraine with complex aura (left facial weakness). There is also a visual aura which is subtle (only seen with eyes closed). In case she has familial hemiplegic migraine, I will refer her to Medical Genetics. Probably getting more frequent and severe due to analgesic rebound. I will start topiramate for now: increasing by 25 mg per week up to a maintenance dose of 50 mg bid. We discussed that topiramate may cause difficulty thinking - usually in the form of word finding difficulty. It is reversible on discontinuing the drug. It frequently causes tingling in the lips, fingers and toes for the first couple of months of treatment. It sometimes causes a change in the taste of food; in particular, carbonated beverages may taste metallic. It can also cause decreased appetite. Three percent of patients taking topiramate experience urolithiasis; it is thought that drinking water liberally reduces the likelihood of this happening. There may be an overlap with IIH (habitus; occasional pulsatile tinnitus; vague optic nerve borders; slightly increased right blind spot superiorly). I will request her MRI brain report from [facility], and contact Dr. Schmidt at [facility] regarding her 01/13/24 funduscopic exam . I will also order an MRV brain. IBS-C makes verapamil unattractive for prevention of the motor aura. The possible presence of IIH might make acetazolamide the best choice. Pending determination of the presence or absence of papilledema, though, I have more confidence in topiramate for prevention of cephalalgia, and will employ it. Thank you for requesting neurologic consultation for Hector Leon. She will be in touch by Ashwin about her progress. Sincerely, Abiodun Li MD Staff, General Neurology I spent 60 minutes in this visit face to face with the patient, with more than 50% of the time devoted to patient counseling with regard to the impression, patient education, interpretation of the studies, the diagnosis, treatment options, theneed for further diagnostic testing, and coordination of care. [facility] 02-01-2024 History and physical note Office Visit Parenthetic [comments] and tinted emphasis mine. Consultation is requested for an opinion regarding the evaluation and treatment of Hector Leon. My final impression and recommendations will be communicated back to the referring physician by way of the shared medical record or letter via [place] mail. Hector Leon is referred by cerebrovascular neurologist Dr. Rianna Shea for recurrent, focal, transient neurologic symptoms. He documented: Her episodes of recurrent facial droop lasting 45 minutes or more, followed by headaches and hours of fatigue, with unremarkable MRI brain and normal head and neck vessels is unlikely to be of cerebrovascular etiology, but rather raise concern for focal seizures vs complex migraines vs functional neurological disorder. I will place an order for EEG and refer to general neurology for further work up and management. ====== MRA head and neck wo on 11/30/23 found: No intracranial or extracranial arterial large vessel occlusion or significant stenosis. [She tells me that she had an MRI brain at [facility] September, about the , of this year]. ====== Routine EEG 01/30/24 - Clinical Summary: 48-year-old right-handed female here for evaluation regarding recurrent neurological events to rule out stroke. Patient admitted to [place] from 10/21 to 10/23 sudden onset facial droop, slurred speech and decreased sensation to left side. CT brain x2 and MRI negative. Patient presented to [place] ED on 10/31 with recurrent chest pain and left side facial droop. CTA of chest/abd/pelvis and CT brain negative. No triggers noted. Afterwards patient feels fatigued, slight headache, difficulty word finding, eyes don't want to focus. Within the last month, patient has been experiencing vision changes. EEG to evaluate. It proved (preliminarily) normal. [She was not having her symptoms at the time of the test]. ====== Problem List includes HLD and and anxiety. Medication List reviewed. ====== With that preamble, Chief Complaint: Hector Leon is a 48 year old left handed female who presents with episodes of left facial weakness. It seems to have lessened since my gall bladder was taken out. History of Present Illness ... And I get pain [pressure] behind my left eye; and then after that starts to ease up, it moves to [above the left sikh] then gradually makes its way down to [the left side of my] neck. Sometimes I'll have to sleep to get the pain to go away...sometimes I'll wake up after sleeping and it'll still be there, but not as severe; sometimes, I'll take a [hot] shower; I'll become really nauseated; [if I then vomit, the headache eases.] She also has had constant high-pitched tinnitus in both ears for a couple of years now. She has to ask people to repeat things; she has had audiograms which were abnormal. 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 ====== The patient's daughter, age 26, suffers headaches; her father does not. Her daughter does not get weak during her headaches. The patient's first headaches occurred during teen years. Then, as now, they have always been on the left. Until recently, her left eye was never involved - but the rest of its trajectory was the same. Then, as now, they were a pressure pain. She was not nauseated by them then. She did have to sleep to get rid of them back then, as she does now. She was sonophobic then as now; likewise head movement; and the odor of food cooking. Nowadays, oncoming headlights when driving at night can cause her headache or worsen one if it is already present. Then, as now, if she closes her eyes during a headache she sees colored dots moving around. She does not know when the facial weakness began to accompany her headaches. She presented to the ED for chest pain, and was found to have left lower motor neuron facial paresis. She was over her shingles, it has crusted over; and though she has occasional stabs in her back, and persisting numbness in the path of the shingles (left thoracic) that was different from the chest pain. The surmise is that the chest pain was due to her gall bladder, which was removed in mid November; her chest pain has eased since then. But when she was in the ED in August, she developed a headache, and had the facial weakness. She is still aware of mild left facial weakness [it is evident at rest in a flattened left nasolabial fold; and when she speaks by slightly less parting of her lips on the left]. She has not noted weakness or clumsiness in her left hand during one of these events. Currently, she has one of her headaches 3 times weekly. They have been building in frequency and severity for a long time. The aura of facial weakness occurs once every zhcb-vpx-m-half. She has had a hysterectomy (no oophorectomy); she thinks that prior to her hysterectomy her headaches might have been timed to her periods. Stress, change in the weather, skipping meals, maybe skipping caffeine, missing sleep, and bananas can trigger them. She is prone to constipation - she has IBS - and take Miralax and Metamucil regularly - making verapamil an unattractive prospect. Neither would tricyclics be a good choice. She has never had kidney stones, in re: candidacy for topiramate or acetazolamide. ------ She has experienced pulsatile tinnitus on occasion. She can't say which side, or whether it accompanied her headaches or not. PAST MEDICAL HISTORY Diagnosis Date Acute cholecystitis 12/12/2023 s/p lap td Crohn's disease (HCC) 2000 crohns disease, rectal bleeding resolved after hysterectomy. GI in [place] Depression Dysfunctional uterine bleeding 2006 s/p hysterectomy Dysmenorrhea Eczema Esophageal reflux Gastroesophageal reflux Fatty liver Fibromyalgia Generalized anxiety disorder History of cardiac monitoring 11/23/2023 Patient completed event monitor secondary to palpitations. Underlying sinus rhythm with excellent heart rate variability. Heart rate ranged from 50-140, average heart 75. A total of 74 strips were sent to us to review. No correlation with any arrhythmias. No evidence atrial fibrillation noted. This is a normal monitor. History of cardiovascular stress test 11/17/2020 The patient's resting heart rate was 85 bpm and blood pressure was 112/82 mmHg. The patient exercised according to the Modified Jagdish protocol. Total exercise 6 minutes and 15 seconds. The maximum heart rate was 134 bpm, which is 76% predicted for age. METs achieved was 4.4. The double product achieved was 90761. Peak heart rate was 134 bpm and peak blood pressure was 138/92 mmHg. History of echocardiogram 10/22/2023 LVEF 55-60%. No significant valvular abnormality. History of exercise stress test (without NM imaging) 11/07/2023 No electrocardiographic evidence of ischemia. Resting HR 68 bpm and BP was 116/80 mmHg. Exercised according to the Jagdish protocol. Test was terminated due to shortness of breath and leg fatigue. Total exercise time was 4 minutes and 30 seconds. Maximum HR was 157 bpm, which is 90% of the predicted heart rate for age. History of shingles 08/2023 LUQ, (L) flank, (L) posterior mid back. Lactose intolerance Lichen sclerosus Morbid obesity (HCC) Other acne Acne Recurrent cold sores Scalp psoriasis Vitamin D insufficiency Current Outpatient Medications Medication Sig loratadine (CLARITIN) 10 mg tablet EFFEXOR XR 37.5 mg [address] (PROTONIX) 40 mg tablet Take 1 tablet by mouth every afternoon. INV VITAMIN D3 4000 UNIT [address] [place] (IRB [id number]) CAPSULE polyethylene glycol 3350 (MIRALAX) 17 gram/dose powder psyllium husk (METAMUCIL) 3.4 gram/5.4 gram powd fluticasone (FLONASE) 50 mcg/actuation nasal spray Use 2 Sprays in each nostril once daily. Rinse mouth after use. clobetasol (TEMOVATE) 0.05 % ointment Apply 1 application to affected area twice daily. TO AFFECTED AREA. oxyCODONE IR (ROXICODONE) 5 mg immediate release tablet Take 5 mg by mouth every 6 hours as needed for pain. acetaminophen (TYLENOL) 500 mg tablet Take 1,000 mg by mouth every 8 hours as needed for pain. lansoprazole (PREVACID) 30 mg capsule Take 1 capsule by mouth daily before breakfast. 1/2 hr before meal. No current facility-administered medications for this visit. ALLERGIES Allergen Reactions Banana GI Upset Eggs [Egg] GI Upset Lactose Intolerance Prednisone Other: See Comments Black stools Social History Tobacco Use Smoking status: Former Packs/day: .25 Types: Cigarettes Quit date: 03/23/1993 Years since quittin.8 Passive exposure: Past Smokeless tobacco: Never Vaping Use Vaping Use: Never used Substance Use Topics Alcohol use: Not Currently Comment: drinking causes LEFT shoulder pain Drug use: Never FAMILY HISTORY Problem Relation Age of Onset Rheumatologic disease Mother Diabetes Mother Arthritis Mother Hypothyroidism Mother Hypertension Father Lipids Father Rheumatologic disease Father RA Rheumatologic disease Brother RA Stroke Brother Colon Cancer Maternal Grandmother Emphysema Maternal Grandfather Alcohol/Drug Maternal Grandfather alcoholism Coronary Artery Disease Paternal Grandmother Diabetes Paternal Grandmother Stroke Paternal Grandmother Hypertension Paternal Grandfather Coronary Artery Disease Paternal Grandfather Diabetes Paternal Grandfather Stroke Paternal Grandfather Diabetes Son Cervical Cancer Maternal Aunt Review of Systems: As above. PHYSICAL EXAM General: Alert, conversant, appropriate, early middle aged, FEMALE, in no apparent distress. Vital Signs: BP 110/81 Pulse 92 Ht 154.9 cm (5' 1) Wt 115 kg (253 lb 8.5 oz) LMP 01/16/2006 BMI 47.90 kg/m - reviewed. Neck: Supple, without Lhermitte's phenomenon. Cardiovascular: Carotids 2 and symmetric without bruits. Neurologic: Cranial Nerves: There is mild lower facial asymmetry, as noted in the HPI. In addition, on opening her mouth to examine the lower cranial nerves, the asymmetry (the diminished parting of the left side of her lips) becomes more manifest. Fundoscopic reveals discs whose borders are somewhat indistinct. Testing the blind spots with a 5 mm red pin to confrontation finds the OD blind spot enlarged superiorly; OS proved normal. Monocular visual medrano intact to finger counting. Pupils equal, round and reactive to light. Pursuit eye movements normal. Facial sensation normal to pin. Hearing normal to 1024 Hz tuning fork. Palatal movement, phonation, and resonation normal. Trapezius and SCM 5/5 and symmetric. Tongue movement symmetric. Sensory: Normal on testing pin, vibration, and joint position sense. Simultaneous light touch of the hands found no extinction. Motor: Strength was 5/5 and symmetric on testing finger abduction, finger extension, elbow flexion, elbow extension, shoulder abduction, toe dorsiflexion, ankle dorsiflexion, ankle plantar flexion, knee flexion, knee extension, and hip flexion. Tone was normal. Posture was normal. There was no atrophy. There were no fasciculations. There were no involuntary movements. Coordination: Ioveqn-jnhx-fuuphd was normal. Finger and toe wiggling rapid alternating movements were normal. Standing in Romberg's position with eyes open and closed was normal. Gait: Normal. Deep Tendon Reflexes: Plantars were flexor bilaterally. Biceps 2 and symmetric. Triceps 2 and symmetric. Patellar 2 and symmetric. Achilles 2 and symmetric. Mental Status: Alert, conversant, and appropriate. IMPRESSION AND PLAN: Migraine with complex aura (left facial weakness). There is also a visual aura which is subtle (only seen with eyes closed). In case she has familial hemiplegic migraine, I will refer her to [facility]. Probably getting more frequent and severe due to analgesic rebound. I will start topiramate for now: increasing by 25 mg per week up to a maintenance dose of 50 mg bid. We discussed that topiramate may cause difficulty thinking - usually in the form of word finding difficulty. It is reversible on discontinuing the drug. It frequently causes tingling in the lips, fingers and toes for the first couple of months of treatment. It sometimes causes a change in the taste of food; in particular, carbonated beverages may taste metallic. It can also cause decreased appetite. Three percent of patients taking topiramate experience urolithiasis; it is thought that drinking water liberally reduces the likelihood of this happening. There may be an overlap with IIH (habitus; occasional pulsatile tinnitus; vague optic nerve borders; slightly increased right blind spot superiorly). I will request her MRI brain report from [facility], and contact Dr. Schmidt at [facility] regarding her 01/13/24 funduscopic exam [phone]. I will also order an MRV brain. IBS-C makes verapamil unattractive for prevention of the motor aura. The possible presence of IIH might make acetazolamide the best choice. Pending determination of the presence or absence of papilledema, though, I have more confidence in topiramate for prevention of cephalalgia, and will employ it. Thank you for requesting neurologic consultation for Hector Leon. She will be in touch by Ashwin about her progress. Sincerely, Abiodun Li MD Staff, General Neurology I spent 60 minutes in this visit face to face with the patient, with more than 50% of the time devoted to patient counseling with regard to the impression, patient education, interpretation of the studies, the diagnosis, treatment options, theneed for further diagnostic testing, and coordination of care. documented in this encounter [facility] 02-01-2024 Telephone encounter Note CV PHONE Name of caller : Hector Relationship to patient : Self If not self Will need patient permission to release results or disclose health information with called documented in fyi. Patient identified by Name and Date of . ( Hector Leon, 1975). Yes Number to return call [phone] Reason for Call: Results: Results Calling office requesting result of EEG test, completed on 01/30/24. Patient calling to notify office that she completed EEG on Tuesday. I looked in the system and the preliminary results are available. Patient has appt with other neurologist that we referred her to set for tomorrow. Thank you calling [facility]. You will receive a return call within 48 hours ( or 2 business days if close to the weekend). If you feel that this is an urgent issue and needs immediate attention, it is recommended that you contact your primary care provider office or proceed to your nearest Urgent Care Center of Emergency Room ED for evaluation/treatment. [facility] 12-28-2023 History of Present illness Narrative 12/28/2023 Patient presents with: Ear Problem: Right ear cracking and popping since yesterday SUBJECTIVE: This is a 48 year old that is here today for Above Complaints.. Yesterday started with some popping, cracking and pain when yawns to the right ear. Admits to ringing in both ears which is not new. Admits hearing seems to be some decreased. Admits to some runny nose, cough and clearing of throat since pneumonia diagnosis a couple of weeks ago although it seems to be improving over all. Has not tried anything over the counter. Denies hx of allergies, fevers, chills, itchy/watery eyes, sore throat, nasal congestion or ear drainage, PAST MEDICAL HISTORY Diagnosis Date Acute cholecystitis 12/12/2023 s/p lap td Crohn's disease (HCC) 2000 crohns disease, rectal bleeding resolved after hysterectomy. GI in [place] Depression Dysfunctional uterine bleeding 2006 s/p hysterectomy Dysmenorrhea Eczema Esophageal reflux Gastroesophageal reflux Fatty liver Fibromyalgia Generalized anxiety disorder History of cardiovascular stress test 11/17/2020 The patient's resting heart rate was 85 bpm and blood pressure was 112/82 mmHg. The patient exercised according to the Modified Jagdish protocol. Total exercise 6 minutes and 15 seconds. The maximum heart rate was 134 bpm, which is 76% predicted for age. METs achieved was 4.4. The double product achieved was [address]. Peak heart rate was 134 bpm and peak blood pressure was 138/92 mmHg. History of echocardiogram 10/22/2023 LVEF 55-60%. No significant valvular abnormality. History of exercise stress test (without NM imaging) 11/07/2023 No electrocardiographic evidence of ischemia. Resting HR 68 bpm and BP was 116/80 mmHg. Exercised according to the Jagdish protocol. Test was terminated due to shortness of breath and leg fatigue. Total exercise time was 4 minutes and 30 seconds. Maximum HR was 157 bpm, which is 90% of the predicted heart rate for age. History of shingles 08/2023 LUQ, (L) flank, (L) posterior mid back. Lactose intolerance Lichen sclerosus Morbid obesity (HCC) Other acne Acne Recurrent cold sores Scalp psoriasis Vitamin D insufficiency ALLERGIES Banana, Eggs [Egg], Lactose, and Prednisone MEDICATIONS Current Outpatient Medications Medication Sig oxyCODONE IR (ROXICODONE) 5 mg immediate release tablet Take 5 mg by mouth every 6 hours as needed for pain. acetaminophen (TYLENOL) 500 mg tablet Take 1,000 mg by mouth every 8 hours as needed for pain. aspirin, enteric coated (ASPIRIN, ENTERIC COATED) 81 mg EC tablet Take 81 mg by mouth daily with breakfast. lansoprazole (PREVACID) 30 mg capsule Take 1 capsule by mouth daily before breakfast. 1/2 hr before meal. atorvastatin (LIPITOR) 80 mg tablet Take 1 tablet by mouth once daily. clobetasol (TEMOVATE) 0.05 % ointment Apply 1 application to affected area twice daily. TO AFFECTED AREA. No current facility-administered medications for this visit. Medications and allergies reviewed by this provider. SOCIAL HISTORY Social History Tobacco Use Smoking status: Former Packs/day: .25 Types: Cigarettes Quit date: 03/23/1993 Years since quittin.7 Passive exposure: Past Smokeless tobacco: Never Vaping Use Vaping Use: Never used Substance Use Topics Alcohol use: Not Currently Comment: drinking causes LEFT shoulder pain Drug use: Never REVIEW OF SYSTEMS All other reviewed and negative other than HPI. OBJECTIVE: BP 120/86 Pulse 70 Temp 36.9 C (98.4 F) Resp 18 Wt 115.3 kg (254 lb 3.2 oz) LMP 01/16/2006 SpO2 98% BMI 46.78 kg/m . Vital signs reviewed by this provider. APPEARANCE Well appearing, alert, in no acute distress, well-hydrated, well nourished. EYES conjunctiva and sclera normal. EARS External ears normal, canals clear NOSE/SINUS positive findings: mucosa erythematous. No sinus tenderness THROAT normal, no erythema NECK Supple, no adenopathy; thyroid symmetric, normal size, no bruits HEART RRR with normal S1 and S2, no murmurs, no gallops, no JVD appreciated LUNG clear to auscultation. No wheezes, rhonchi or rales SKIN Skin color, texture, turgor normal, no suspicious rashes or lesions to exposed skin Hepatitis B Vaccine(3 of 3 - 19+ 3-dose series) due on 01/02/2015 Mammogram Screening due on 07/04/2020 Covid-19 Vaccine( season) Never done Behavioral Health Screening Never done Influenza Vaccine(Season Ended) due on 04/29/2024 Colorectal Cancer Screening due on 07/03/2024 Diabetes Screening due on 12/15/2026 Lipid Screening due on 12/05/2028 DTaP,Tdap,Td Vaccine(4 - Td or Tdap) due on 06/28/2029 Hepatitis C Screening Completed HIV Screening Completed HPV Vaccine Aged Out Pap Testing Discontinued HPV Testing Discontinued ASSESSMENT/PLAN: 1. Popping of right ear - ICD9: 388.8, ICD10: H93.8X1 (primary diagnosis) - no red flag symptoms or exam findings - red flag symptoms or exam findings - FLUTICASONE PROPIONATE 50 MCG/ACTUATION NASAL SPRAY,SUSPENSION - follow-up if symptoms fail to improve to ER with red flag symptoms 2. Right ear pain - ICD9: 388.70, ICD10: H92.01 - may OTC pain relievers as directed on packaging - follow-up if symptoms fail to improve Yaritza Fry APRN.CNP Prescription instructions reviewed with patient as applicable. Patient advised if symptoms do not improve or if symptoms worsen sooner, to contact their primary care physician. Potential red flag symptoms discussed with the patient. Reviewed appropriate action plan to take if red flag symptoms occur. Patient agreeable to treatment plan. Medical Decision Making: Problems: Low: Acute, uncomplicated illness or injury Risk: Low: Low risk from testing/treatment Medical Decision Making Level: 3 - Low documented in this encounter [facility] 12-24-2023 Note HNO ID: [id number] Author: YANETH FLORIAN Tech Service: ? Author Type: Physician Type: Progress Notes Filed: 12/28/2023 14:04 Note Text: 30 DAY HOME PROJECT HIRE Patient: Hector Leon Date of : 1975 (48 year old) Study Dates: November 22 to December 16, 2023 MD Humza Ordonez CNP Indication for Study: Palpitations Maximum heart rate: 140 on November 25 time 3:09 AM Minimum heart rate: 50 average heart rate 75 Ventricular arrhythmias: None Atrial arrhythmias: Less than 1% Pauses: None Rhythm strip review: Reviewed rhythm strips demonstrate underlying sinus rhythm 1. November 22 at 1833 chest pain sinus at 74 2. November 23 at 2136 chest pain sinus 88 3. November 24 at 8:22 AM short of breath sinus at 62 4. November 24 at 1554 chest pain sinus at 71 It should be noted that this monitor is capable of making automatic recordings for bradycardia, tachycardia, or even atrial fibrillation with a controlled ventricular response. There were no recordings of atrial fibrillation documented. Current Outpatient Medications: aspirin, enteric coated (ASPIRIN, ENTERIC COATED) 81 mg EC tablet, Take 81 mg by mouth daily with breakfast., Disp: , Rfl: lansoprazole (PREVACID) 30 mg capsule, Take 1 capsule by mouth daily before breakfast. 1/2 hr before meal., Disp: 90 capsule, Rfl: 1 atorvastatin (LIPITOR) 80 mg tablet, Take 1 tablet by mouth once daily., Disp: 90 tablet, Rfl: 1 clobetasol (TEMOVATE) 0.05 % ointment, Apply 1 application to affected area twice daily. TO AFFECTED AREA., Disp: 45 g, Rfl: 0 oxyCODONE IR (ROXICODONE) 5 mg immediate release tablet, Take 5 mg by mouth every 6 hours as needed for pain., Disp: , Rfl: acetaminophen (TYLENOL) 500 mg tablet, Take 1,000 mg by mouth every 8 hours as needed for pain., Disp: , Rfl: No current facility-administered medications for this visit. SUMMARY: Patient completed event monitor secondary to palpitations. Underlying sinus rhythm with excellent heart rate variability. Heart rate ranged from 50-140, average heart 75. A total of 74 strips were sent to us to review. No correlation with any arrhythmias. No evidence atrial fibrillation noted. This is a normal monitor. Israel De La Paz DO December 24, 2023 [facility] 12-23-2023 Telephone encounter Note Phoned patient and given provider's message below with verbalized understanding. Patient agreeable. [facility] 12-23-2023 Miscellaneous Notes Phoned patient and given provider's message below with verbalized understanding. Patient agreeable. Agree. Will order repeat CXR for 1 week from now if symptoms have not improved significantly. Has improved a little bit. Patient states she still has the chest pain and thinks it is the same prior to all of this. Denies all other symptoms below. Patient made aware that the cough can linger. Instructed to call office back if gets any worse. Lalita Hagan LPN Her cough may linger after completing the antibiotic. Has it improved at all? Any fever/chills, chest pain, SOB or wheezing? Patient calls and states that she still has a cough and producing mucous. Patient states that she just finished antibiotic yesterday. Patient asking if provider wanted her to get a follow chest xray? Please review and advise, Humaira Biggs RN documented in this encounter [facility] 12-23-2023 Telephone encounter Note Agree. Will order repeat CXR for 1 week from now if symptoms have not improved significantly. [facility] 12-23-2023 Telephone encounter Note Has improved a little bit. Patient states she still has the chest pain and thinks it is the same prior to all of this. Denies all other symptoms below. Patient made aware that the cough can linger. Instructed to call office back if gets any worse. Lalita Hagan LPN [facility] 12-23-2023 Telephone encounter Note Her cough may linger after completing the antibiotic. Has it improved at all? Any fever/chills, chest pain, SOB or wheezing? [facility] 12-23-2023 Telephone encounter Note Patient calls and states that she still has a cough and producing mucous. Patient states that she just finished antibiotic yesterday. Patient asking if provider wanted her to get a follow chest xray? Please review and advise, Humaira Biggs RN [facility] 12-19-2023 Telephone encounter Note Reviewed. [facility] 12-19-2023 Miscellaneous Notes Reviewed. No fever, chills, nausea, vomiting, or diarrhea. Patient denies any constipation. Patient only symptoms are belching and than when she takes deep breath has pain. Patient has not called surgeon office and instructed to reach out to them. Advised patient would forward to pcp and only call back if he wants to follow up more, if she does not hear from us than deferring to surgeon. Patient understood. Rubi Arrieta MA Any other symptoms with this such as fever/chills, SOB, nausea/vomiting, drainage or redness from her incision sites? Has she called her surgeon's office about this? Phoned patient and reviewed results and recommendations with her. She voiced understanding and reports she is having increased pain under area of her surgical incision with inspiration. She stated its like a catch on her ribs. ----- Message from Manda Mercado MD sent at 12/19/2023 8:18 AM EDT ----- LFTs up compared to 2 weeks ago. Other labs normal. Recommend NSAIDs OTC for pain instead of tylenol. f/u with Dr. He as scheduled. documented in this encounter [facility] 12-19-2023 Telephone encounter Note No fever, chills, nausea, vomiting, or diarrhea. Patient denies any constipation. Patient only symptoms are belching and than when she takes deep breath has pain. Patient has not called surgeon office and instructed to reach out to them. Advised patient would forward to pcp and only call back if he wants to follow up more, if she does not hear from us than deferring to surgeon. Patient understood. Rubi Arrieta MA T [facility] 12-19-2023 Telephone encounter Note Any other symptoms with this such as fever/chills, SOB, nausea/vomiting, drainage or redness from her incision sites? Has she called her surgeon's office about this? T [facility] 12-19-2023 Telephone encounter Note Phoned patient and reviewed results and recommendations with her. She voiced understanding and reports she is having increased pain under area of her surgical incision with inspiration. She stated its like a catch on her ribs. [facility] 12-19-2023 Telephone encounter Note ----- Message from Manda Mercado MD sent at 12/19/2023 8:18 AM EDT ----- LFTs up compared to 2 weeks ago. Other labs normal. Recommend NSAIDs OTC for pain instead of tylenol. f/u with Dr. He as scheduled. T [facility] 12-16-2023 Miscellaneous Notes Patient returned call and went over results, notes from Dr Mercado with understanding. Aware rx sent to pharmacy. VM left for patient to return call to review results and orders with her. Chest xray shows streaky densities in the left lower lobe. This may be air trapping vs pneumonia. With recent hospitalization and productive cough, will treat as pneumonia. Will treat with doxycycline x 7 days. Call if cough is not improving in the next 2-3 days or with worsening symptoms. If symptoms have not improved significantly in 1 week, would repeat CXR. documented in this encounter [facility] 12-16-2023 History of Present illness Narrative Radiology Service Progress Note PATIENT NAME: Hector Leon DATE OF SERVICE: December 16, 2023 TIME: 8:57 AM PATIENT IDENTITY VERIFICATION COMPLETED USING TWO (2) IDENTIFIERS: Name and Date of confirmed by patient verbally. FALL SCREENING: Has the patient had 2 falls in the last year or 1 fall with injury or currently using an Ambulatory Assistive Device (Walker, Cane, Wheelchair, Crutches, etc.)? No PATIENT GENDER DATA: Female. status: : No status: NO. PATIENT RELEVANT IMPLANT DATA REVIEWED: Yes PATIENT PRESENTS WITH AN IMPLANTABLE OR ATTACHED FIBER ANALYST: No RADIOLOGY DEPARTMENT: General X-ray: Exam(s) Completed: Chest X-Ray PERIPHERAL IV DATA: Not applicable SIGNED BY: RT Judit(R) December 16, 2023 8:57 AM documented in this encounter [facility] 12-16-2023 History of Present illness Narrative Chief Complaint Patient presents with: [facility] F/U [facility] Hector Leon is a 48 year old female who presents here today for Above Complaints. Accompanied today by . Patient admitted to [facility] From 12/11 to 12/13 for acute cholecystitis s/p lap cholecystectomy on 12/12 along with liver biopsy for fatty infiltration of the liver. Presented to the ER with chest pain. Tolerated procedure well. The rest of the hospitalization was uneventful. Tolerated PO diet and was passing flatus prior to discharge. Recommended f/u with Dr. He in 10-14 days. Discharged with rx for oxycodone and tylenol for pain. Since discharge, patient states that she has been eating soft diet and passing gas, but has not had a bowel movement yet. Admits to having belching without nausea or vomiting. Taking miralax to try to have a bowel movement. Taking oxycodone up to every 6 hours which does take the edge of her RUQ pain and mid back. Today RUQ pain, is described as intermittent pulling up to 4/10 with movement. Chest pain has improved since surgery, but has not completely resolved. Patient has been managed by cardiology in [place] with last OV 11/22. Just recently completed event monitor. Admits to cough productive with white/yellow phlegm. Denies fever, cellulitis, purulent drainage, palpitations, SOB,wheezing, leg swelling. F/u appointment with Dr. He on 12/26. Past medical history, appointments, medications, allergies reviewed. Previous Medical History PAST MEDICAL HISTORY Diagnosis Date Crohn's disease (HCC) 2000 crohns disease, rectal bleeding resolved after hysterectomy. GI in [place] Depression Dysfunctional uterine bleeding 2006 s/p hysterectomy Dysmenorrhea Eczema Esophageal reflux Gastroesophageal reflux Fibromyalgia Generalized anxiety disorder History of cardiovascular stress test 11/17/2020 The patient's resting heart rate was 85 bpm and blood pressure was 112/82 mmHg. The patient exercised according to the Modified Jagdish protocol. Total exercise 6 minutes and 15 seconds. The maximum heart rate was 134 bpm, which is 76% predicted for age. METs achieved was 4.4. The double product achieved was [address]13. Peak heart rate was 134 bpm and peak blood pressure was 138/92 mmHg. History of echocardiogram 10/22/2023 LVEF 55-60%. No significant valvular abnormality. History of exercise stress test (without NM imaging) 11/07/2023 No electrocardiographic evidence of ischemia. Resting HR 68 bpm and BP was 116/80 mmHg. Exercised according to the Jagdish protocol. Test was terminated due to shortness of breath and leg fatigue. Total exercise time was 4 minutes and 30 seconds. Maximum HR was 157 bpm, which is 90% of the predicted heart rate for age. History of shingles 08/2023 LUQ, (L) flank, (L) posterior mid back. Lactose intolerance Lichen sclerosus Morbid obesity (HCC) Other acne Acne Recurrent cold sores Scalp psoriasis Vitamin D insufficiency Previous Surgical History PAST SURGICAL HISTORY Procedure Laterality Date COLONOSCOPY 2009 multiple for crohns disease. [employer]. Benign polyp COLONOSCOPY 09/21/2005 active colitis at [...] FAMILY HISTORY Problem Relation Age of Onset Rheumatologic disease Mother Diabetes Mother Arthritis Mother Hypothyroidism Mother Hypertension [...] Banana GI Upset Eggs [Egg] GI Upset Lactose Intolerance Prednisone Other: See Comments Black stools Current Medications Current Outpatient Medications on File Prior to Visit Medication Sig oxyCODONE IR (ROXICODONE) 5 mg immediate release tablet Take 5 mg by mouth every 6 hours as needed for pain. acetaminophen (TYLENOL) 500 mg tablet Take 1,000 mg by mouth every 8 hours as needed for pain. aspirin, enteric coated (ASPIRIN, ENTERIC COATED) 81 mg EC tablet Take 81 mg by mouth daily with breakfast. atorvastatin (LIPITOR) 80 mg tablet Take 1 tablet by mouth once daily. clobetasol (TEMOVATE) 0.05 % ointment Apply 1 application to affected area twice daily. TO AFFECTED AREA. lansoprazole (PREVACID) 30 mg capsule Take 1 capsule by mouth daily before breakfast. 1/2 hr before meal. No current facility-administered medications on file prior to visit. Social History Social History Tobacco Use Smoking status: Former Packs/day: .25 Types: Cigarettes Quit date: 03/23/1993 Years since quittin.7 Passive exposure: Past Smokeless tobacco: Never Vaping Use Vaping Use: Never used Substance Use Topics Alcohol use: Not Currently Comment: drinking causes LEFT shoulder pain Drug use: Never Review of Symptoms REVIEW OF SYSTEMS See HPI EXAM: BP 130/82 Pulse 76 Temp 36.2 C (97.1 F) Resp 16 Wt 117.4 kg (258 lb 12.8 oz) LMP 01/16/2006 SpO2 96% BMI 47.63 kg/m General Appearance: Well appearing, alert, in no acute distress, well-hydrated, well nourished. Skin: incision sites still covered with gauze and plastic dressings. No surrounding erythema. No purulent discharge on the dressings. . Lungs: Lungs clear to auscultation. No wheezing, rhonchi, rales.. Heart: RRR without murmur, gallop, or rubs. No ectopy. Abdomen: Abdomen soft. Bowel sounds normal. No masses, organomegaly, Positive findings: tenderness moderate epigastric and RUQ. Extremities: No deformities, edema, skin discoloration, clubbing or cyanosis. Good capillary refill. Health Maintenance List Hepatitis B Vaccine(3 of 3 - 19+ 3-dose series) due on 01/02/2015 Mammogram Screening due on 07/04/2020 Covid-19 Vaccine( season) Never done Behavioral Health Screening Never done Influenza Vaccine(Season Ended) due on 04/29/2024 Colorectal Cancer Screening due on 07/03/2024 Diabetes Screening due on 12/05/2026 Lipid Screening due on 12/05/2028 DTaP,Tdap,Td Vaccine(4 - Td or Tdap) due on 06/28/2029 Hepatitis C Screening Completed HIV Screening Completed HPV Vaccine Aged Out Pap Testing Discontinued HPV Testing Discontinued ASSESSMENT/PLAN: 1. Acute cholecystitis - ICD9: 575.0, ICD10: K81.0 (primary diagnosis) S/p lap td. Wounds still covered today. Will soak dressings at home and remove. May shower. Pain controlled with oxycodone. Discussed to switch to tylenol for mild to moderate pain since she has not yet had a bowel movement and oxycodone can constipate her. Continue soft diet, push PO fluids. May take fiber supplement and miralax up to bid. Red flags for re-assessment reviewed with patient in detail. 2. S/P laparoscopic cholecystectomy - ICD9: V45.89, ICD10: Z90.49 See above. 3. Fatty liver - ICD9: 571.8, ICD10: K76.0 F/u with Dr He for liver biopsy results as scheduled. Recheck lfts. 4. Productive cough - ICD9: 786.2, ICD10: R05.8 Obtain CXR to rule out early pneumonia. Normal exam today. - XR CHEST 2V FRONTAL/LAT - XR CHEST 2V FRONTAL/LAT 5. Elevated LFTs - ICD9: 790.6, ICD10: R79.89 See above. - COMPLETE BLOOD COUNT AND DIFFERENTIAL - COMPREHENSIVE METABOLIC PANEL Manda Mercado MD documented in this encounter [facility] 12-14-2023 Progress note Note Date/Time December 14, 2023 10:17am [facility] Medical Records Department [address] [place] [id number] Progress Note - Hospitalist 12/14/23 1017 MR#: [id number] Acct: [id number] Name: HECTOR LEON Rep #:[id number] : 1975 48 From: Tl candelarai DO PCP: Dr. Mike Mercado MD Status :ADM AV Location: ICU ICU 3-1 Reason for Visit Reason for Visit: Diagnoses Cholecystitis, unspecified (12/12/23) Chest pain, unspecified (12/12/23) Subjective Subjective No acute events overnight. Patient seen at bedside this morning. Patient was sitting up fairly comfortably in bedside chair, conversing normally, in no acutedistress. She did report feeling distended in her abdomen with mild abdominal pain this morning. She had not passed gas or had a bowel movement yet since herlap td yesterday. She denied any pain at her incision sites. She denied anyfevers or chills. She was looking forward to trying a liquid diet and had just taken a stool softener to try to get her bowels moving. She was hopeful that she will be able to go home later this afternoon. No other acute concerns. Objective Data Objective Data Vital Signs: Vital Signs Temp Pulse Resp BP Pulse Ox O2 Del Method O2 Flow Rate 98.8 F 92 14 132/87 H 94 Room Air 2 12/14/23 08:00 12/14/23 08:00 12/14/23 08:00 12/14/23 08:00 12/14/23 08:00 12/14/23 08:00 12/13/23 17:30 Oxygen Flow Rate (L/min) 2 Oxygen Delivery Method Room Air Weight: 116.8 kg Body Mass Index (BMI) 47.8 Intake & Output: Intake and Output for Last 24 Hours 12/12/23 12/13/23 12/14/23 23:59 23:59 23:59 Intake Total 2654.33 / 2654.33 160 / 160 Balance 2654.33 / 2654.33 160 / 160 Lab / Micro Data 12/14/23 03:45 12/14/23 03:45 Labs: Laboratory Results - last 24 hr 12/14/23 03:45: WBC 14.3 H, RBC 4.42, Hgb 13.2, Hct 39.1, MCV 88.5, MCH 29.9, MCHC 33.8, RDW Std Deviation 40.9, RDW Coeff of Rebecca 12.6, Plt Count 310, MPV 9.8, Sodium 138, Potassium 4.4, Chloride 107, Carbon Dioxide 27.0, Anion Gap 4 L, BUN 10, Creatinine 0.86, Estim Creat Clear Calc 97.29, Est GFR (MDRD) Af Amer 91, Est GFR (MDRD) Non-Af 75, BUN/Creatinine Ratio 11.6, Glucose 134 H, Calcium 8.6, Total Bilirubin 0.70, AST 149 H, ALT 189 H, Alkaline Phosphatase 111, TotalProtein 7.3, Albumin 3.0 L, Globulin 4.3 H, Albumin/Globulin Ratio 0.7 L Radiography Diagnostic Testing: Radiology Impression Cholangiogram 12/13/23 13:14 IMPRESSION: Unremarkable intraoperative cholangiogram. Electronically Signed: Maury Flanagan MD at 15:32 EDT , Physical Exam Const alert, oriented x3 and no apparent distress Constitutional Narrative: Morbidly obese. General Appearance: cooperative and comfortable HEENT normocephalic, head/scalp atraumatic, hearing grossly normal bilaterally, nasal mucous membranes and turbinates normal and moist oral mucous membranes Eyes PERRL, EOMs intact bilaterally and conjunctivae normal Neck full ROM Chest inspection of chest normal Resp normal respiratory effort, normal air movement, no use of accessory muscles and clear to auscultation bilaterally Cardio regular rate, regular rhythm, no murmurs and peripheral pulses 2+ throughout GI GI Narrative: Mild abdominal distention noted. Abdomen otherwise soft and nontender to palpation. Incision sites were covered, dressings clean and dry. Back/Spine normal ROM Extremity normal to inspection, full ROM and no pedal edema Skin no rashes or lesions noted Neuro no focal motor deficits and no sensory deficits noted Psych mental status grossly normal Assessment & Plan Assessment/Plan (1) Cholecystitis: PLAN: Plan Patient is a 48-year-old female who presented to [facility] ED on 12/12/2023 with chest/epigastric pain and nausea. Presentation was consistentwith acute cholecystitis, admitted to the general surgery service. Medicine consulted for assistance with medical management. 1. Acute cholecystitis ? General surgery primary. Gallbladder ultrasound on admit showed cholelithiasis, positive sonographic Toledo sign, fatty infiltration of liver. S/p laparoscopic cholecystectomy with intraoperative cholangiogram and core needle liver biopsy with Dr. He on 12/12. Patient tolerated procedure well, no significant intraoperative complications. Advancing diet per surgery recs. On low-dose oxycodone and hydromorphone as needed for pain control, along with bowel regimen. Started on IV Zosyn on admission, discontinued on morning of 12/13. Likely okay for discharge home today or tomorrow. 2. Recent history of complex migraine versus stroke ? Was hospitalized at [facility] from 10/21-10/23/2023 for concern for stroke. Had NIH score of 2 on admission, was given tenecteplase on admit. Neurology followed, imaging workup was negative, suspected symptoms may have been more consistent with complex migraine as opposed to stroke. Was started on aspirin and statin during that hospitalization given concern for stroke, but note was made that neither aspirin nor statin were required on discharge. However, patient saw outpatient neurology who recommended that she continue aspirin and high-dose statin at home, as she notably did have elevated lipids on lipid profile. Thesewere held on admission. Likely okay to restart on 12/14 if okay with surgery. Planning for outpatient EEG in January per outpatient neurology. 3. Elevated LFTs ? LFTs normal on admission, worsened to AST 149 and ALT 189 after lap td. Presumed secondary to procedure. Trend LFTs to ensure return to baseline. Notably, bilirubin normal. Okay to resume statin from a medicine standpoint. 4. Morbid obesity ? BMI 47 on admit. Encouraged lifestyle modifications. Complicates hospital course, care and prognosis. Total clinical time spent by myself addressing the patient's medical issues, reviewing all the data, and collaborating with patient's care team: 25 minutes. Charges/Coding Visit Charges Inpatient E&M: 25156 Subs Hosp L1 12/14/23 1515 <Electronically signed by Tl Tomas DO> Cosigner Signature (if applicable): CC: ~ Signed [facility] Work Phone: [phone] Discharge summary Author Maru Liu [facility] December 14, 2023 4:55pm Note Date/Time December 14, 2023 8:5 0am [facility] Medical Records Department [address] [place] [address] Discharge Summary 12/14/23 0845 MR#: [id number] Acct: [id number] Name: HECTOR LEON Rep #:[id number] : 1975 48 From: Maru CHARLES PA-C PCP: Dr. Mike Mercado MD Status :ADM AV Location: ICU CVICU20 3-1 Providers Date of Admission: 12/12/23 Primary Care Physician: Dr. Mike Mercado MD Consultations 12/12/23 23:53 Consult: Hospitalist Routine Consulting Provider: [facility] Reason for Consult: Patient with recent neuro and CV symptoms please help risk stratify for OR EMERGENT Consult: No MD Notified: Yes Date Notified: 12/12/23 Time Notified: 23:55 Method of Notification: Verbal Reason For Visit: ACUTE CHOLECYSTITIS Diagnosis Discharge Diagnosis (1) Cholecystitis: Status: Acute Code(s): K81.9 - Cholecystitis, unspecified Plan: I have evaluated this patient in conjunction with Dr. He. He has independently evaluated this patient. Patient progressing well after surgery Ready for discharge Plan to stop antibiotics Increase diet to full liquids Medications at Discharge Home Medications aspirin 81 mg chewable tablet 1 tab PO DAILY 11/01/23 atorvastatin 80 mg tablet 80 mg PO QHS 11/01/23 lansoprazole 30 mg capsule,delayed release 30 mg PO DAILY 12/12/23 acetaminophen 500 mg tablet 500 mg PO Q6H PRN PRN Pain Score 1-10 #0 tabs 12/14/23 oxycodone 5 mg tablet 5 mg PO Q6H PRN PRN Pain Score 6-10 3 days #10 tabs 12/14/23 Hospital Course Operations cholecystecomy (with IOC) and - Summary of Care Provided Minutes Spent on Discharge: 30 Hospital Course: Patient is a 48 y/o F who presented with epigastric pain/discomfort. RUQ u/s wasobtained demonstrating cholelithiasis. Positive sonographic Toledo's sign consistent with acute cholecystitis. Fatty infiltration of the liver. Hospitalist sixto consulted to assist with medical management. Dr. He performed a laparoscopic cholecystectomy with intraoperative cholangiogram and liver core biopsy on 12/13/23. Patient tolerated the procedure well. Patient had an uneventful hospitalization. Upon discharge, patient notes incisional soreness/discomfort. She denies nausea, vomiting, fever. She is tolerating her current diet. She is passing flatus. She is to follow-up with Dr. He post-operatively in 10-14 days. Weight / BMI Weight Weight: 257 lb 7.999 oz Body Mass Index (BMI) 47.8 ABG / Lab / Microbiology Data 12/14/23 03:45 12/14/23 03:45 Laboratory: Laboratory Results - last 24 hr 12/14/23 03:45: WBC 14.3 H, RBC 4.42, Hgb 13.2, Hct 39.1, MCV 88.5, MCH 29.9, MCHC 33.8, RDW Std Deviation 40.9, RDW Coeff of Rebecca 12.6, Plt Count 310, MPV 9.8, Sodium 138, Potassium 4.4, Chloride 107, Carbon Dioxide 27.0, Anion Gap 4 L, BUN 10, Creatinine 0.86, Estim Creat Clear Calc 97.29, Est GFR (MDRD) Af Amer 91, Est GFR (MDRD) Non-Af 75, BUN/Creatinine Ratio 11.6, Glucose 134 H, Calcium 8.6, Total Bilirubin 0.70, AST 149 H, ALT 189 H, Alkaline Phosphatase 111, TotalProtein 7.3, Albumin 3.0 L, Globulin 4.3 H, Albumin/Globulin Ratio 0.7 L Radiography Diagnostic Testing: Radiology Impression Cholangiogram 12/13/23 13:14 IMPRESSION: Unremarkable intraoperative cholangiogram. Electronically Signed: Maury Flanagan MD at 15:32 EDT , D/C Instructions Discharge Diet: Low fat / Low cholesterol Discharge Activity: May Not Drive (while taking narcotic pain medication) and May Shower (1 day) May shower in (days): 1 Lifting Restrictions: No lifting greater than 15 pounds for 3 weeks Call your doctor if your incision/area has: Continuous Slow Oozing, Sudden Increased Bleeding, Increased Pain/ Swelling, Increased Redness, Foul Smelling Discharge and Swelling at the incision site Call your doctor if you observe: Fever of 101 or Higher Suture Line Care: Avoid Pulling/Pushing and Avoid Pinching/Bending Remove Dressing in: 2 days Cleanse incision/area with: Soap & Water Please Follow Up With: Abiodun He MD When: Please contact our office to schedule an appointment 10-14 days from your surgery. Please call at [phone], option #2 to schedule. Meaningful Use Info Meaningful Use Diagnoses (Choose all that apply): None applicable Discharge Plan Admission Admit Date/Time: 12/12/23 23:53 Primary Reason for Your Visit: Acute cholecystitis; fatty liver Attending Provider: Abiodun He Primary Care Provider: Mike Mercado Consulting Providers: Tl Tomas; aNfisa Dawkins; Nafisa Martinez; Earnestine Cruz; Ioana Griffiths; Javier Ventura; Javier Lewis; Maverick Miller; Erickson Kramer; Maryan Gamze; Ramón Cortez; Delaney Garcia; Jose Ruth; Leilani Reece; Ricardo Hassan; Sagar Ramirez; Nilo Siddiqui; Jeanie Hallman; Maxwell Dennis; Lisy Guevara NP; Rich Cunningham Instructions Additional Instructions / Restrictions: Cholecystectomy Diet ? Start light with soups and soft bland foods. You may advance diet as tolerated. Recommend a low fat diet. Activity ? You may drive in 3-5 days but not while taking narcotic pain medication. ? I encourage walking. You may go up steps, one at a time. ? Do not swim or use hot tubs for 2 weeks. ? For comfort, you may use warm compresses or ice as needed for 15-20 minutes sandor time. Lifting ? You may lift up to 15 pounds for 3 weeks. Dressings/Incision ? You may shower OVER your plastic dressings ? Do NOT tub bathe for 1 week ? Leave plastic dressings on for 2 days. ? When plastic dressings are removed, you will find steri strips. It is okay to continue showering with them in place, pat them dry. ? You may remove steri-strips after 1 week. We recommend getting them soaking wet for easier removal. Medications ? Anesthesia used during surgery and pain medications may cause constipation. I recommend initiating on the day of surgery a fiber supplement like, Metamucil, Citrucel, FiberCon, Benefiber, or a generic form of these medications. 1 heapingtablespoon in water daily. You may continue to utilize any bowel regimen or orallaxatives that you routinely take. You may also take 1 capful of Miralax daily if you become constipated. ? As long as you are not intolerant to Tylenol, acetaminophen, ibuprofen, Motrin, Advil, Aleve, or similar medications, I would recommend transitioning tothese [id number] medicines as soon as possible instead of continued use ofnarcotic pain medication. Follow up ? You should call [facility] soon after surgery, at [phone] option 1 to make a follow up appointment for 10-14 days after your surgery. Discharge Orders/Prescriptions Prescriptions: New oxycodone 5 mg Tablet 5 mg PO Q6H PRN PRN (Reason: Pain Score 6-10) 3 Days Qty: 10 0RF acetaminophen 500 mg Tablet 500 mg PO Q6H PRN PRN (Reason: Pain Score 1-10) Qty: 0 0RF Continued lansoprazole 30 mg capsule,delayed release(DR/EC) 30 mg PO DAILY aspirin 81 mg tablet,chewable 1 tab PO DAILY Patient Comments: chew and swallow 1 tablet by mouth once daily for 30 DAYS atorvastatin 80 mg tablet 80 mg PO QHS Patient Comments: take 1 tablet by mouth at bedtime for 30 DAYS Referrals / Follow Up: Mike Mercado MD [Primary Care Provider] - Abiodun He MD [Med Staff - Active Staff] - (Follow-up in 10-14 days) Disposition Disposition (needs filled in before D/C Order can be placed): Home, Self Care Charges/Coding Visit Charges Inpatient E&M: 16556 Disch Hosp 12/14/23 8935 <Electronically signed by Maru CHARLES PA-C> Cosigner Signature (if applicable): CC: MEENAKSHI Liu; Dr. Mike Mercado MD~ Signed [facility] Work Phone: [phone]) 923-797504-17-2024 Progress note Author Maru Liu [facility] December 14, 2023 8:31am Note Date/Time December 14, 2023 8:2 0am [facility] Medical Records Department [address] [place] [address] Progress Note - Surgery 12/14/23818 MR#: [id number] Acct: [id number] Name: HECTOR LEON Rep #:[id number] : 1975 48 From: Maru CHARLES PA-C PCP: Dr. Mike Mercado MD Status :ADM AV Location: ICU CVICU 3-1 Subjective Subjective Patient is a 48 y/o F I am following in conjunction with Dr. He. Patient was evaluated resting comfortably in the chair. She notes incisional soreness/discomfort. She denies nausea, vomiting with current diet. She denies fever. She is urinating well. Objective Data Objective Data Vital Signs: Vital Signs Temp Pulse Resp BP Pulse Ox O2 Del Method O2 Flow Rate 98.7 F 101 H 14 119/69 93 Room Air 2 12/14/23 02:00 12/14/23 02:00 12/14/23 02:00 12/14/23 02:00 12/14/23 02:00 12/14/23 02:00 12/13/23 17:30 Oxygen Flow Rate (L/min) 2 Oxygen Delivery Method Room Air Weight: 257 lb 7.999 oz Body Mass Index (BMI) 47.8 Intake & Output: Intake and Output for Last 24 Hours 12/12/23 12/13/23 12/14/23 23:59 23:59 23:59 Intake Total 2654.33 / 2654.33 50 / 50 Balance 2654.33 / 2654.33 50 / 50 Lab / Micro Data 12/14/23 03:45 12/14/23 03:45 Labs: Laboratory Results - last 24 hr 12/14/23 03:45: WBC 14.3 H, RBC 4.42, Hgb 13.2, Hct 39.1, MCV 88.5, MCH 29.9, MCHC 33.8, RDW Std Deviation 40.9, RDW Coeff of Rebecca 12.6, Plt Count 310, MPV 9.8, Sodium 138, Potassium 4.4, Chloride 107, Carbon Dioxide 27.0, Anion Gap 4 L, BUN 10, Creatinine 0.86, Estim Creat Clear Calc 97.29, Est GFR (MDRD) Af Amer 91, Est GFR (MDRD) Non-Af 75, BUN/Creatinine Ratio 11.6, Glucose 134 H, Calcium 8.6, Total Bilirubin 0.70, AST 149 H, ALT 189 H, Alkaline Phosphatase 111, TotalProtein 7.3, Albumin 3.0 L, Globulin 4.3 H, Albumin/Globulin Ratio 0.7 L Radiography Diagnostic Testing: Radiology Impression Cholangiogram 12/13/23 13:14 IMPRESSION: Unremarkable intraoperative cholangiogram. Electronically Signed: Maury Flanagan MD at 15:32 EDT , Physical Exam GI GI Narrative: Abdomen- soft, tenderness at the incision sites. Incisions c/d/i. No erythema orinfection noted. Hypoactive bowel sounds. Assessment & Plan Assessment/Plan (1) Cholecystitis: PLAN: I have evaluated this patient in conjunction with Dr. He. He has independently evaluated this patient. Patient progressing well after surgery Ready for discharge Plan to stop antibiotics Increase diet to full liquids Charges/Coding Visit Charges Inpatient E&M: 13072 Subs Hosp L1 (no charge; post-op) 12/14/23 0831 <Electronically signed by Maru CHARLES PA-C> Cosigner Signature (if applicable): CC: ~ Signed [facility] Work Phone: [phone] 797-303804-16-2024 Progress note Author Ricardo Hassan [facility] December 13, 2023 1:35am Note Date/Time December 13, 2023 1:3 2am [facility] Medical Records Department [address] [place] [address] Progress Note - Hospitalist 12/13/23122 MR#: [id number] Acct: [id number] Name: HECTOR LEON Rep #:[id number] : 1975 48 From: Ricardo faustin MD PCP: Dr. Mike Mercado MD Status :ADM AV Location: ICU CVICU20 3-1 Subjective Subjective 48-year-old female presented to the hospital with right upper quadrant abdominalpain. Workup is indicative of cholecystitis and general surgery has admitted the patient with plan for cholecystectomy in the morning. Medicine was consulted secondary to a recent history of a possible stroke, she was given tenecteplase though the MRI was negative and she relays that the [facility] neurology and cardiology feel that this was likely migraine related versus seizure related. She does have an EEG pending as an outpatient. She is still on a PPI as well as aspirin and Lipitor though she states that she has been told that she can likely discontinue the aspirin and Lipitor. Objective Data Objective Data Vital Signs: Vital Signs Temp Pulse Resp BP Pulse Ox O2 Del Method 98 F 81 11 L 133/87 H 96 Room Air 12/13/23 00:10 12/13/23 00:31 12/13/23 00:31 12/13/23 00:31 12/13/23 00:31 12/13/23 00:31 Oxygen Delivery Method Room Air Weight: 257 lb Body Mass Index (BMI) 48.5 Lab / Micro Data 12/12/23 20:47 12/12/23 20:47 Labs: Laboratory Results - last 24 hr 12/12/23 20:47: WBC 11.2 H, RBC 4.93, Hgb 14.4, Hct 42.7, MCV 86.6, MCH 29.2, MCHC 33.7, RDW Std Deviation 39.2, RDW Coeff of Rebecca 12.4, Plt Count 313, MPV 9.6, Immature Gran % (Auto) 0.400, Neut % (Auto) 36.2 L, Lymph % (Auto) 54.4 H, [place] % (Auto) 7.0, Eos % (Auto) 1.6, Baso % (Auto) 0.4, Absolute Neuts (auto) 4.1, Absolute Lymphs (auto) 6.10 H, Nucleated RBC % 0, Differential Comment SEE COMMENT, Platelet Estimate ADEQUATE, RBC Morphology NORM C+C, Anisocytosis RARE,Sodium 140, Potassium 3.4 L, Chloride 106, Carbon Dioxide 28.0, Anion Gap 6, BUN13, Creatinine 0.76, Estim Creat Clear Calc 109.96, Est GFR (MDRD) Af Amer 106, Est GFR (MDRD) Non-Af 87, BUN/Creatinine Ratio 17.2, Glucose 111 H, Calcium 8.9,Total Bilirubin 0.30, Direct Bilirubin 0.13, AST 37, ALT 48, Alkaline Phosphatase 131 H, Troponin I High Sens < 3 L, Total Protein 7.6, Albumin 3.5, Globulin 4.1 12/12/23 21:02: Urine Color Yellow, Urine Clarity Clear, Urine pH 7.0, Ur Specific Bradley 1.005, Urine Protein Negative, Urine Glucose (UA) Normal, UrineKetones Negative, Urine Occult Blood Negative, Urine Nitrite Negative, Urine Bilirubin Negative, Urine Urobilinogen Normal, Ur Leukocyte Esterase Negative, Urine RBC 0 SEEN, Urine WBC 0 SEEN, Ur Squamous Epith Cells 0-5 SEEN, Urine Bacteria 0 SEEN, Urine Mucus 0 SEEN Radiography Diagnostic Testing: Radiology Impression Gallbladder Ultrasound 12/12/23 21:28 IMPRESSION: Cholelithiasis. Positive sonographic Toledo sign may be consistent with acute cholecystitis with no other definitive ultrasound findings. Fatty infiltration liver. Electronically Signed: Blanca Castro MD at 22:19 EDT , Physical Exam Narrative General: Alert, Oriented x3, Cooperative, No apparent distress HEENT: Atraumatic, PERRLA, EOMI, Normocephalic Oral: Moist Mucosa Neck: Supple, No JVD Lungs: Diminished, normal air movement, No rhonchi, No wheeze, No rales Cardiovascular: Regular rate, Regular Rhythm, Normal S1, Normal S2, No murmurs Abdomen: Soft, TTP to RUQ, Non-Distended, No Hepato-splenomegaly Extremities: No edema, Capillary Refill Less than 3 Seconds Skin: No rashes, No breakdown Musculoskeletal: No Tenderness to Palpation of Joints or Extremities Neurological: No focal neurological deficits, Motor Exam 5/5 strength throughout, Sensory exam intact to light touch and pain Psych/Mental Status: Normal Affect, Appropriate Assessment & Plan Assessment/Plan (1) Cholecystitis: PLAN: Plan 1. Acute cholecystitis ? Pain management per surgery ? She is likely low risk to proceed with surgery she has had extensive outpatient cardiovascular workup within the last 3 months including stress test and echo. The echo we have here in our system which was normal and she states that her stress test was also normal ? Plan for cholecystectomy in the morning 2. Complex migraine versus stroke ? In September showed tenecteplase with a normal MRI ? She reports that outpatient neurology feels that this could potentially been amigraine, planning for outpatient EEG in January ? Cardiovascular workup with an echo and stress test have also all been normal ? Can resume aspirin and Lipitor when okay with surgery DVT: SCDs Charges/Coding Visit Charges Office Visits / Consults: 61763 OV L3 New 30min 12/13/23 0135 <Electronically signed by Ricardo Hassan MD> Cosigner Signature (if applicable): CC: ~ Signed [facility] Work Phone: [phone] 462-104104-16-2024 History and physical note Author Abiodun He [facility] December 13, 2023 12:10am Note Date/Time December 12, 2023 11: 59pm [facility] Medical Records Department [facility] [place] [address] History & Physical Exam 12/12/23 2357 MR#: [id number] Acct: [id number] Name: HECTOR LEON Rep #:[id number] : 1975 48 From: Abiodun Hernandez PCP: Dr. Mike Mercado MD Status :REG ER Location: ED HPI - General General Date of Admission: 12/12/23 Chief Complaint: Chest pain HPI Narrative HECTOR LEON, is a 48 F who presents to [facility] with her with complaints of chest pain that began approximately at 7 PM this evening after taking dinner at approximately 5 PM. She shares that her chest pain simply went calm down and then became associated also with some back painwhich presented more in waves. She does acknowledge some associated nausea and belching with chest pain. She reports that it is presently well-controlled on her current medications. She shares that she deals with chronic constipation but over the last several weeks has noticed that her stools have been more yellow. Patient's ER workup is notable for CMP with mildly elevated alkaline phosphataseat 131. CBC shows mildly elevated WBC 11.2. Troponin is obtained was not elevated. Right upper quadrant ultrasound was performed and found evidence of cholelithiasis with normal gallbladder wall thickness, no pericholecystic fluid,normal CBD diameter, but positive sonographic Toledo sign concerning for cholecystitis. Patient reports an ongoing workup for complaints of this chest pain as well as some facial drooping. She notes at the end of August she was diagnosed with shingles and this infection cause pain under her left breast going into her leftmid back. Then the following month she presented with severe chest pain and facial droop on the left side. The findings were concerning enough that she wasministered tenecteplase and observed in the ICU. She shares she underwent a battery of testing including MRI and CT imaging that all returned negative. Shewas instructed to follow-up with her PCP, cardiology, and neurology out of this. Unfortunately, however, she presented in October with similar complaints of facial droop and chest pain. She was advised at that time that it been to closesince her last tenecteplase administration to readminister. Instead she was observed and thereafter underwent the outpatient evaluations by cardiology and neurology. She shares that she is presently on a 30-day event monitor for cardiology but to date has had a negative stress test and was advised that she no longer needed to take the recommended aspirin and Lipitor. She shares she also followed up with stroke neurology and they have excluded a stroke event butremain concerned for seizure activity. Therefore, it is a recommendation to follow-up with general neurology. Patient has a diagnosis of morbid obesity and she shares that she has tried to lose weight in the last year, however, this has been largely unsuccessful. She reports a 25 pound weight loss but approximately 10 pound weight regain. Patient's past surgical history includes tubal ligation and hysterectomy [facility] Medical History Fibromyalgia Morbid obesity Home Medications aspirin 81 mg chewable tablet 1 tab PO DAILY 11/01/23 [History Last Taken Unknown] atorvastatin 80 mg tablet 80 mg PO QHS 11/01/23 [History Last Taken Unknown] lansoprazole 30 mg capsule,delayed release 30 mg PO DAILY 12/12/23 [History Last Taken Unknown] Allergy/AdvReac Type Severity Reaction Status Date / Time egg Allergy Other Verified 12/12/23 20:24 prednisone AdvReac Nausea/Vom/ Verified 12/12/23 20:24 Diarrhea Family History Mother Rheumatoid arthritis Hypertension Father Hypertension Grandmother VTE (venous thromboembolism) Maternal grandmother. Brother VTE (venous thromboembolism) CVA (cerebral vascular accident) Hypertension Surgical History H/O tubal ligation H/O: hysterectomy S/P tonsillectomy and adenoidectomy Social History household members: spouse Smoking Status: Never smoker alcohol intake: never substance use type: does not use Vital Signs Vital Signs Vital Signs: 12/12/23 20:18 12/12/23 20:18 12/12/23 20:22 Temperature 98 F 98 F 98 F Temperature Source Temporal Temporal Temporal Pulse Rate 94 88 88 Respiratory Rate 19 H 19 H 16 Blood Pressure 149/96 H 149/96 H 149/96 H Blood Pressure Mean 113 113 113 Pulse Ox 100 100 100 Oxygen Delivery Method Room Air Room Air Room Air 12/12/23 21:22 12/12/23 22:00 12/12/23 23:00 Temperature 98.2 F 98.7 F 97.5 F L Temperature Source Oral Oral Temporal Pulse Rate 82 80 84 Respiratory Rate 16 16 16 Blood Pressure 151/83 H 162/102 H 165/88 H Blood Pressure Mean 105 122 113 Pulse Ox 98 97 100 Oxygen Delivery Method Room Air Room Air Room Air Weight Weight: 257 lb Body Mass Index (BMI) 48.5 Physical Exam Const alert and well nourished Constitutional Narrative: Anxious and appears frustrated/distraught Eyes Eyes Narrative: Normal sclera Resp normal respiratory effort GI GI Narrative: Morbidly obese, no scars, nondistended, soft, focally tender in the right upper quadrant with positive Toledo sign Results Lab / Micro Data 12/12/23 20:47 12/12/23 20:47 Labs: Laboratory Results - last 24 hr 12/12/23 20:47: WBC 11.2 H, RBC 4.93, Hgb 14.4, Hct 42.7, MCV 86.6, MCH 29.2, MCHC 33.7, RDW Std Deviation 39.2, RDW Coeff of Rebecca 12.4, Plt Count 313, MPV 9.6, Immature Gran % (Auto) 0.400, Neut % (Auto) 36.2 L, Lymph % (Auto) 54.4 H, Ren[place] % (Auto) 7.0, Eos % (Auto) 1.6, Baso % (Auto) 0.4, Absolute Neuts (auto) 4.1, Absolute Lymphs (auto) 6.10 H, Nucleated RBC % 0, Differential Comment SEE COMMENT, Platelet Estimate ADEQUATE, RBC Morphology NORM C+C, Anisocytosis RARE,Sodium 140, Potassium 3.4 L, Chloride 106, Carbon Dioxide 28.0, Anion Gap 6, BUN13, Creatinine 0.76, Estim Creat Clear Calc 109.96, Est GFR (MDRD) Af Amer 106, Est GFR (MDRD) Non-Af 87, BUN/Creatinine Ratio 17.2, Glucose 111 H, Calcium 8.9,Total Bilirubin 0.30, Direct Bilirubin 0.13, AST 37, ALT 48, Alkaline Phosphatase 131 H, Troponin I High Sens < 3 L, Total Protein 7.6, Albumin 3.5, Globulin 4.1 12/12/23 21:02: Urine Color Yellow, Urine Clarity Clear, Urine pH 7.0, Ur Specific Bradley 1.005, Urine Protein Negative, Urine Glucose (UA) Normal, UrineKetones Negative, Urine Occult Blood Negative, Urine Nitrite Negative, Urine Bilirubin Negative, Urine Urobilinogen Normal, Ur Leukocyte Esterase Negative, Urine RBC 0 SEEN, Urine WBC 0 SEEN, Ur Squamous Epith Cells 0-5 SEEN, Urine Bacteria 0 SEEN, Urine Mucus 0 SEEN Imaging Radiology Impression Gallbladder Ultrasound 12/12/23 21:28 IMPRESSION: Cholelithiasis. Positive sonographic Toledo sign may be consistent with acute cholecystitis with no other definitive ultrasound findings. Fatty infiltration liver. Electronically Signed: Blanca Castro MD at 22:19 EDT , Assessment & Plan Assessment/Plan (1) Cholecystitis: PLAN: Patient is a 48-year-old female with a number of recent complaints who presents with signs and symptoms largely consistent with a diagnosis of cholecystitis. Her pain is primarily postprandial as per history and her exam is consistent with this diagnosis with a positive Toledo sign. Cholelithiasis is confirmed on ultrasound. However, I am unable to confirm for Mrs. Leon thather back pain is definitely connected to this diagnosis. Further, it is unclearto me how her prior presentations for chest pain and facial droop fit into this present presentation. Based on her reports of multiple negative cardiac and neurologic workups it seems reasonable and safe to proceed for cholecystectomy and hopefully addressing her right upper quadrant abdominal discomfort, but all the while acknowledging that there may and likely is more to her clinical picture than this cholecystitis. I have tried to take time to outline the expectations for this procedure as well as recommended that we on board the hospitalist service for additional evaluation before proceeding to the OR. Patient and her expressed appreciation for this information. Patient will be admitted with IV antibiotic therapy and n.p.o. status. Will tentativelyplan to proceed to the OR tomorrow for laparoscopic cholecystectomy with intraoperative cholangiogram. CBC and CMP we ordered for the a.m. (2) Chest pain in adult: PLAN: Patient with multiple presentations for chest pain and extensive cardiac workup that is reportedly all been within normal limits. Patient is morbidly obese and has certain risk factors for cardiovascular disease. Appreciate assistance of hospitalist service to help appropriately read stratify patient ahead of the OR. Charges/Coding Visit Charges Inpatient E&M: 82525 Init Hosp L2 12/13/23 0010 <Electronically signed by Abiodun He MD> Cosigner Signature (if applicable): CC: Dr. Mike Mercado MD; Dr. Abiodun He MD~ Signed [facility] Work Phone: [phone]) 604-469004-16-2024 Discharge summary Author Elyse Weiss [facility] December 13, 2023 12:02am Note Date/Time December 12, 2023 11: 57pm [facility] Medical Records Department [address] [place] [address] Emergency Department Summary 12/12/23 MR#: [id number] Acct: [id number] Name: HECTOR LEON Rep #:[id number] : 1975 48 From: Elyse Weiss DO PCP: Dr. Mike Mercado MD Status :REG ER Location: ED HPI HPI - GI History of Present Illness Chief Complaint: Chest Pain Narrative Narrative: 48-year-old female presenting with right upper quadrant pain epigastric pain which radiates up into her esophagus. She reports that prior to this pain started she ate some things in a blanket. She states has been having problems with abdominal pain associated with eating. Has not had any workup. She statesthat she is concerned that it is radiating up into her chest. She does have no known cardiac history. She has history of hyperlipidemia, GERD. On daily aspirin. No fevers, chills, cough. No diarrhea or constipation. No urinary orvaginal complaints. [facility] Medical History Fibromyalgia Morbid obesity Home Medications aspirin 81 mg chewable tablet 1 tab PO DAILY 11/01/23 [History Last Taken Unknown] atorvastatin 80 mg tablet 80 mg PO QHS 11/01/23 [History Last Taken Unknown] lansoprazole 30 mg capsule,delayed release 30 mg PO DAILY 12/12/23 [History Last Taken Unknown] Allergy/AdvReac Type Severity Reaction Status Date / Time egg Allergy Other Verified 12/12/23 20:24 prednisone AdvReac Nausea/Vom/ Verified 12/12/23 20:24 Diarrhea Family History Mother Rheumatoid arthritis Hypertension Father Hypertension Grandmother VTE (venous thromboembolism) Maternal grandmother. Brother VTE (venous thromboembolism) CVA (cerebral vascular accident) Hypertension Surgical History H/O tubal ligation H/O: hysterectomy S/P tonsillectomy and adenoidectomy Social History household members: spouse Smoking Status: Never smoker alcohol intake: never substance use type: does not use ROS ROS ED Constitutional Constitutional ED: Denies chills, fever(s) or sweats Eyes Eyes: Denies blurry vision or change in vision ENT ENT ED: Denies ear pain or sore throat Cardiovascular Cardiovascular: Denies chest pain, palpitations or racing heartbeat Respiratory/Chest Respiratory/Chest: Denies cough, dyspnea or sputum Gastrointestinal Gastrointestinal: Reports abdominal pain and nausea; Denies constipation, diarrhea or vomiting Genitourinary Genitourinary ED: Denies dysuria, hematuria or urinary frequency Musculoskeletal Musculoskeletal: Denies arthralgias, myalgias or neck pain Integumentary Denies abscess, Abrasions or rash Neurologic Neurologic: Denies headache(s), paresthesias or weakness Psychiatric Psychiatric: Denies anxiety, depression, suicidal ideation or suicidal thoughts Endocrine Endocrinology: Denies polydipsia or polyuria EXAM Physical Exam Const Vital Signs: 12/12/23 20:18 12/12/23 20:18 12/12/23 20:22 Temperature 98 F 98 F 98 F Temperature Source Temporal Temporal Temporal Pulse Rate 94 88 88 Respiratory Rate 19 H 19 H 16 Blood Pressure 149/96 H 149/96 H 149/96 H Blood Pressure Mean 113 113 113 Pulse Ox 100 100 100 Oxygen Delivery Method Room Air Room Air Room Air 12/12/23 21:22 12/12/23 22:00 12/12/23 23:00 Temperature 98.2 F 98.7 F 97.5 F L Temperature Source Oral Oral Temporal Pulse Rate 82 80 84 Respiratory Rate 16 16 16 Blood Pressure 151/83 H 162/102 H 165/88 H Blood Pressure Mean 105 122 113 Pulse Ox 98 97 100 Oxygen Delivery Method Room Air Room Air Room Air Positive well nourished General Appearance ED: NAD; Negative for pallor HEENT Reports moist mucous membranes normocephalic Eyes PERRL and EOMs intact bilaterally Resp normal respiratory effort Cardio regular rate and regular rhythm GI Palpation: tender epigastric and Toledo's sign Neuro CN's II-XII intact bilaterally Sensorium / Orientation: alert, oriented to person, oriented to place and oriented to time Motor Exam: strength 5/5 throughout Psych mental status grossly normal Skin General Skin Exam: Negative for jaundice or pallor MDM MDM MDM Narrative Medical decision making narrative: Patient presenting with right upper quadrant pain after eating peas and a blanket. Differential includes gastritis, GERD, gastroenteritis, angry otitis, cholelithiasis, cholecystitis, choledocholithiasis. CBC was obtained to assess for blood cell count, hemoglobin, platelets. CMP to assess liver function, renal function, electrolytes, glucose. Lipase was ordered but is a send out tonight because of her missing the reagent. High-sensitivity troponin and EKG will be obtained to evaluate chest pain. Will obtain a gallbladder ultrasound. Patient was given morphine and IV fluids. She was also given Zofran. Ultimately CBC showed a mild leukocytosis 11.2. Hemoglobin hematocrit are stable. Platelets are normal. Renal function appears to be normal. LFTs only showed elevation in alkaline phosphatase 131. EKG on my interpretation shows a sinus rhythm at 88 bpm without sign of ischemic change or dysrhythmia. High-sensitivity troponin less than 3. I feel this is unlikely to be cardiac given her abdominal pain. Gallbladder ultrasound was obtained and shows concern for gallstones. There is concern for cholecystitis. Discussed with Dr. He will admit the patient. Patient given Zosyn and Protonix IV. Stable on admission. Impression: 1. Acute cholecystitis Lab Data Attestation: I reviewed the patient's lab results. Labs: Laboratory Results - last 24 hr 12/12/23 12/12/23 20:47 21:02 WBC 11.2 H RBC 4.93 Hgb 14.4 Hct 42.7 MCV 86.6 MCH 29.2 MCHC 33.7 RDW Std Deviation 39.2 RDW Coeff of Rebecca 12.4 Plt Count 313 MPV 9.6 Immature Gran % (Auto) 0.400 Neut % (Auto) 36.2 L Lymph % (Auto) 54.4 H Reno % (Auto) 7.0 Eos % (Auto) 1.6 Baso % (Auto) 0.4 Absolute Neuts (auto) 4.1 Absolute Lymphs (auto) 6.10 H Nucleated RBC % 0 Differential Comment SEE COMMENT Platelet Estimate ADEQUATE RBC Morphology NORM C+C Anisocytosis RARE Sodium 140 Potassium 3.4 L Chloride 106 Carbon Dioxide 28.0 Anion Gap 6 BUN 13 Creatinine 0.76 Estim Creat Clear Calc 109.96 Est GFR (MDRD) Af Amer 106 Est GFR (MDRD) Non-Af 87 BUN/Creatinine Ratio 17.2 Glucose 111 H Calcium 8.9 Total Bilirubin 0.30 Direct Bilirubin 0.13 AST 37 ALT 48 Alkaline Phosphatase 131 H Troponin I High Sens < 3 L Total Protein 7.6 Albumin 3.5 Globulin 4.1 Urine Color Yellow Urine Clarity Clear Urine pH 7.0 Ur Specific Bradley 1.005 Urine Protein Negative Urine Glucose (UA) Normal Urine Ketones Negative Urine Occult Blood Negative Urine Nitrite Negative Urine Bilirubin Negative Urine Urobilinogen Normal Ur Leukocyte Esterase Negative Urine RBC 0 SEEN Urine WBC 0 SEEN Ur Squamous Epith Cells 0-5 SEEN Urine Bacteria 0 SEEN Urine Mucus 0 SEEN Radiography Diagnostic Testing: Clinical Impression(s) from Imaging Studies Gallbladder Ultrasound 12/12/23 21:28 IMPRESSION: Cholelithiasis. Positive sonographic Toledo sign may be consistent with acute cholecystitis with no other definitive ultrasound findings. Fatty infiltration liver. Electronically Signed: Blanca Castro MD at 22:19 EDT Reading Location ID and State: [address] [place] [address] Tel , Service support , Discharge Plan Triage Chief Complaint: Chest Pain ED Provider: Elyse Weiss Dx/Rx/DC Orders Prescriptions: No Action lansoprazole 30 mg capsule,delayed release(DR/EC) 30 mg PO DAILY aspirin 81 mg tablet,chewable 1 tab PO DAILY Patient Comments: chew and swallow 1 tablet by mouth once daily for 30 DAYS atorvastatin 80 mg tablet 80 mg PO QHS Patient Comments: take 1 tablet by mouth at bedtime for 30 DAYS Primary Care Provider: Mike Mercado Referrals: Mike Mercado MD [Primary Care Provider] - What to do if you have Problems For any increased pain, shortness of breath, bleeding, nausea or vomiting, chestpain, or any unexpected problems, contact your Primary Care Provider. Call [facility] ([phone]) or report to the closest Emergency Room. Call 911 if necessary. 12/13/23 0002 <Electronically signed by Elyse Weiss DO> Cosigner Signature (if applicable): CC: Dr. Mike Mercado MD ~ Signed [facility] Work Phone: [phone] Discharge summary Author Elyse Weiss [facility] December 13, 2023 12:02am Note Date/Time December 12, 2023 11: 57pm [facility] Medical Records Department [address] [place] [address] Emergency Department Summary 12/12/23 MR#: [id number] Acct: [id number] Name: HECTOR LEON Rep #:[id number] : 1975 48 From: Elyse Weiss DO PCP: Dr. Mike Mercado MD Status :REG ER Location: ED HPI HPI - GI History of Present Illness Chief Complaint: Chest Pain Narrative Narrative: 48-year-old female presenting with right upper quadrant pain epigastric pain which radiates up into her esophagus. She reports that prior to this pain started she ate some things in a blanket. She states has been having problems with abdominal pain associated with eating. Has not had any workup. She statesthat she is concerned that it is radiating up into her chest. She does have no known cardiac history. She has history of hyperlipidemia, GERD. On daily aspirin. No fevers, chills, cough. No diarrhea or constipation. No urinary orvaginal complaints. [facility] Medical History Fibromyalgia Morbid obesity Home Medications aspirin 81 mg chewable tablet 1 tab PO DAILY 11/01/23 [History Last Taken Unknown] atorvastatin 80 mg tablet 80 mg PO QHS 11/01/23 [History Last Taken Unknown] lansoprazole 30 mg capsule,delayed release 30 mg PO DAILY 12/12/23 [History Last Taken Unknown] Allergy/AdvReac Type Severity Reaction Status Date / Time egg Allergy Other Verified 12/12/23 20:24 prednisone AdvReac Nausea/Vom/ Verified 12/12/23 20:24 Diarrhea Family History Mother Rheumatoid arthritis Hypertension Father Hypertension Grandmother VTE (venous thromboembolism) Maternal grandmother. Brother VTE (venous thromboembolism) CVA (cerebral vascular accident) Hypertension Surgical History H/O tubal ligation H/O: hysterectomy S/P tonsillectomy and adenoidectomy Social History household members: spouse Smoking Status: Never smoker alcohol intake: never substance use type: does not use ROS ROS ED Constitutional Constitutional ED: Denies chills, fever(s) or sweats Eyes Eyes: Denies blurry vision or change in vision ENT ENT ED: Denies ear pain or sore throat Cardiovascular Cardiovascular: Denies chest pain, palpitations or racing heartbeat Respiratory/Chest Respiratory/Chest: Denies cough, dyspnea or sputum Gastrointestinal Gastrointestinal: Reports abdominal pain and nausea; Denies constipation, diarrhea or vomiting Genitourinary Genitourinary ED: Denies dysuria, hematuria or urinary frequency Musculoskeletal Musculoskeletal: Denies arthralgias, myalgias or neck pain Integumentary Denies abscess, Abrasions or rash Neurologic Neurologic: Denies headache(s), paresthesias or weakness Psychiatric Psychiatric: Denies anxiety, depression, suicidal ideation or suicidal thoughts Endocrine Endocrinology: Denies polydipsia or polyuria EXAM Physical Exam Const Vital Signs: 12/12/23 20:18 12/12/23 20:18 12/12/23 20:22 Temperature 98 F 98 F 98 F Temperature Source Temporal Temporal Temporal Pulse Rate 94 88 88 Respiratory Rate 19 H 19 H 16 Blood Pressure 149/96 H 149/96 H 149/96 H Blood Pressure Mean 113 113 113 Pulse Ox 100 100 100 Oxygen Delivery Method Room Air Room Air Room Air 12/12/23 21:22 12/12/23 22:00 12/12/23 23:00 Temperature 98.2 F 98.7 F 97.5 F L Temperature Source Oral Oral Temporal Pulse Rate 82 80 84 Respiratory Rate 16 16 16 Blood Pressure 151/83 H 162/102 H 165/88 H Blood Pressure Mean 105 122 113 Pulse Ox 98 97 100 Oxygen Delivery Method Room Air Room Air Room Air Positive well nourished General Appearance ED: NAD; Negative for pallor HEENT Reports moist mucous membranes normocephalic Eyes PERRL and EOMs intact bilaterally Resp normal respiratory effort Cardio regular rate and regular rhythm GI Palpation: tender epigastric and Toledo's sign Neuro CN's II-XII intact bilaterally Sensorium / Orientation: alert, oriented to person, oriented to place and oriented to time Motor Exam: strength 5/5 throughout Psych mental status grossly normal Skin General Skin Exam: Negative for jaundice or pallor MDM MDM MDM Narrative Medical decision making narrative: Patient presenting with right upper quadrant pain after eating peas and a blanket. Differential includes gastritis, GERD, gastroenteritis, angry otitis, cholelithiasis, cholecystitis, choledocholithiasis. CBC was obtained to assess for blood cell count, hemoglobin, platelets. CMP to assess liver function, renal function, electrolytes, glucose. Lipase was ordered but is a send out tonight because of her missing the reagent. High-sensitivity troponin and EKG will be obtained to evaluate chest pain. Will obtain a gallbladder ultrasound. Patient was given morphine and IV fluids. She was also given Zofran. Ultimately CBC showed a mild leukocytosis 11.2. Hemoglobin hematocrit are stable. Platelets are normal. Renal function appears to be normal. LFTs only showed elevation in alkaline phosphatase 131. EKG on my interpretation shows a sinus rhythm at 88 bpm without sign of ischemic change or dysrhythmia. High-sensitivity troponin less than 3. I feel this is unlikely to be cardiac given her abdominal pain. Gallbladder ultrasound was obtained and shows concern for gallstones. There is concern for cholecystitis. Discussed with Dr. He will admit the patient. Patient given Zosyn and Protonix IV. Stable on admission. Impression: 1. Acute cholecystitis Lab Data Attestation: I reviewed the patient's lab results. Labs: Laboratory Results - last 24 hr 12/12/23 12/12/23 20:47 21:02 WBC 11.2 H RBC 4.93 Hgb 14.4 Hct 42.7 MCV 86.6 MCH 29.2 MCHC 33.7 RDW Std Deviation 39.2 RDW Coeff of Rebecca 12.4 Plt Count 313 MPV 9.6 Immature Gran % (Auto) 0.400 Neut % (Auto) 36.2 L Lymph % (Auto) 54.4 H Reno % (Auto) 7.0 Eos % (Auto) 1.6 Baso % (Auto) 0.4 Absolute Neuts (auto) 4.1 Absolute Lymphs (auto) 6.10 H Nucleated RBC % 0 Differential Comment SEE COMMENT Platelet Estimate ADEQUATE RBC Morphology NORM C+C Anisocytosis RARE Sodium 140 Potassium 3.4 L Chloride 106 Carbon Dioxide 28.0 Anion Gap 6 BUN 13 Creatinine 0.76 Estim Creat Clear Calc 109.96 Est GFR (MDRD) Af Amer 106 Est GFR (MDRD) Non-Af 87 BUN/Creatinine Ratio 17.2 Glucose 111 H Calcium 8.9 Total Bilirubin 0.30 Direct Bilirubin 0.13 AST 37 ALT 48 Alkaline Phosphatase 131 H Troponin I High Sens < 3 L Total Protein 7.6 Albumin 3.5 Globulin 4.1 Urine Color Yellow Urine Clarity Clear Urine pH 7.0 Ur Specific Bradley 1.005 Urine Protein Negative Urine Glucose (UA) Normal Urine Ketones Negative Urine Occult Blood Negative Urine Nitrite Negative Urine Bilirubin Negative Urine Urobilinogen Normal Ur Leukocyte Esterase Negative Urine RBC 0 SEEN Urine WBC 0 SEEN Ur Squamous Epith Cells 0-5 SEEN Urine Bacteria 0 SEEN Urine Mucus 0 SEEN Radiography Diagnostic Testing: Clinical Impression(s) from Imaging Studies Gallbladder Ultrasound 12/12/23 21:28 IMPRESSION: Cholelithiasis. Positive sonographic Toledo sign may be consistent with acute cholecystitis with no other definitive ultrasound findings. Fatty infiltration liver. Electronically Signed: Blanca Castro MD at 22:19 EDT Reading Location ID and State: [address] [place] [address] Tel , Service support , Discharge Plan Triage Chief Complaint: Chest Pain ED Provider: Elyse Weiss Dx/Rx/DC Orders Prescriptions: No Action lansoprazole 30 mg capsule,delayed release(DR/EC) 30 mg PO DAILY aspirin 81 mg tablet,chewable 1 tab PO DAILY Patient Comments: chew and swallow 1 tablet by mouth once daily for 30 DAYS atorvastatin 80 mg tablet 80 mg PO QHS Patient Comments: take 1 tablet by mouth at bedtime for 30 DAYS Primary Care Provider: Mike Mercado Referrals: Mike Mercado MD [Primary Care Provider] - What to do if you have Problems For any increased pain, shortness of breath, bleeding, nausea or vomiting, chestpain, or any unexpected problems, contact your Primary Care Provider. Call [facility] ([phone]) or report to the closest Emergency Room. Call 911 if necessary. 12/13/23 0002 <Electronically signed by Elyse Weiss DO> Cosigner Signature (if applicable): CC: Dr. Mike Mercado MD ~ Signed [facility] Work Phone: [phone] Miscellaneous Notes* Telephone Encounter - Minnie Silva LPN - 12/08/2023 9:56 AM EDT Phoned patient and reviewed results and recommendations with her. Patient voiced understanding. * Telephone Encounter - Manda Mercado MD - 12/08/2023 9:37 AM EDT Vitamin D level low. Recommend taking 2,000 units of vitamin D OTC daily. Recheck in 3 months. [facility] History of Present illness Narrative* Yaritza Fry APRN.[employer] - 12/07/2023 8:40 AM EDT 12/05/2023 Patient presents with: Physical SUBJECTIVE: This is a 48 year old that is here today for Above Complaints. GERD: taking Prevacid as prescribed. Denies breakthrough symptoms Followed up with cerebrovascular center on 12/02/2023 for stroke like symptoms. Will be having EEG completed and following up with general neurology. Appointments scheduled in January Followed up with cardiology on 11/23/2023 for chest pain and palpitations. Heart monitor was placedbut needs to get a different one due to skin reaction. HYPERLIPIDEMIA: Patient is taking medications: Yes. Patient is watching diet: somewhat Patient denies myalgias: occasionally Patient denies gi upset: Yes PAST MEDICAL HISTORY Diagnosis Date Crohn's disease (HCC) 2000 crohns disease, rectal bleeding resolved after hysterectomy. GI in [facility] Dysfunctional uterine bleeding 2006 s/p hysterectomy Dysmenorrhea Eczema Esophageal reflux Gastroesophageal reflux Fibromyalgia Generalized anxiety disorder History of cardiovascular stress test 11/17/2020 The patient's resting heart rate was 85 bpm and blood pressure was 112/82 mmHg. The patient exercised according to the Modified Jagdish protocol. Total exercise 6 minutes and 15 seconds. The maximum heart rate was 134 bpm, which is 76% predicted for age. METs achieved was 4.4. The double product achieved was [address]997. Peak heart rate was 134 bpm and peak blood pressure was 138/92 mmHg. History of echocardiogram 10/22/2023 LVEF 55-60%. No significant valvular abnormality. History of exercise stress test (without NM imaging) 11/07/2023 No electrocardiographic evidence of ischemia. Resting HR 68 bpm and BP was 116/80 mmHg. Exercised according to the Jagdish protocol. Test was terminated due to shortness of breath and leg fatigue. Total exercise time was 4 minutes and 30 seconds. Maximum HR was 157 bpm, which is 90% of the predicted heart rate for age. History of shingles 08/2023 LUQ, (L) flank, (L) posterior mid back. Lactose intolerance Lichen sclerosus Morbid obesity (HCC) Other acne Acne Recurrent cold sores Scalp psoriasis Vitamin D insufficiency ALLERGIES Banana, Eggs [Egg], Lactose, and Prednisone MEDICATIONS Current Outpatient Medications Medication Sig gabapentin (NEURONTIN) 300 mg capsule Take 1 tablet PO daily x 1 week, then every other day x 1 week, then stop. (Patient not taking: Reported on 12/02/2023) aspirin, enteric coated (ASPIRIN, ENTERIC COATED) 81 mg EC tablet Take 81 mg by mouth daily with breakfast. lansoprazole (PREVACID) 30 mg capsule Take 1 capsule by mouth daily before breakfast. 1/2 hr beforemeal. atorvastatin (LIPITOR) 80 mg tablet Take 1 tablet by mouth once daily. clobetasol (TEMOVATE) 0.05 % ointment Apply 1 application to affected area twice daily. TO AFFECTEDAREA. No current facility-administered medications for this visit. Medications and allergies reviewed by this provider. SOCIAL HISTORY Social History Tobacco Use Smoking status: Former Packs/day: .25 Types: Cigarettes Quit date: 03/23/1993 Years since quittin.7 Passive exposure: Past Smokeless tobacco: Never Vaping Use Vaping Use: Never used Substance Use Topics Alcohol use: Not Currently Comment: drinking causes LEFT shoulder pain Drug use: Never REVIEW OF SYSTEMS GENERAL: No weight loss, malaise or fevers HEENT: No changes in hearing or vision, no nose bleeds or other nasal problems NECK: Negative for lumps, goiter, and significant neck swelling, RESPIRATORY: Negative for cough, hemoptysis, wheezing, COPD, dyspnea CARDIOVASCULAR: Negative for leg swelling, hypertension, CHF GI: No nausea, vomiting, or diarrhea : No history of dysuria, frequency or incontinence 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 OBJECTIVE: BP 122/86 Pulse 87 Resp 18 Ht 157 cm (5' 1.81) Wt 116.8 kg (257 lb 6.4 oz) LMP 01/16/2006 SpO2 98% BMI 47.37 kg/m . Vital signs reviewed by this provider. APPEARANCE Well appearing, alert, in no acute distress, well-hydrated, well nourished. EYES conjunctiva and sclera normal. EARS External ears normal, canals clear NECK Supple, no adenopathy; thyroid symmetric, normal size, no bruits HEART RRR with normal S1 and S2, no murmurs, no gallops, no JVD appreciated LUNG clear to auscultation. No wheezes, rhonchi or rales ABDOMEN bowel sounds normoactive, no bruits, soft, non-tender, non-distended EXTREMITIES Extremities normal, No deformities, No skin discoloration, and No edema SKIN Skin color, texture, turgor normal, no suspicious rashes or lesions to exposed skin Latest Ref Rng 12/06/2023 WBC 3.70 - 11.00 k/uL 5.76 RBC 3.90 - 5.20 m/uL 4.64 Hemoglobin 11.5 - 15.5 g/dL 13.7 Hematocrit 36.0 - 46.0 % 41.7 MCV 80.0 - 100.0 fL 89.9 MCH 26.0 - 34.0 pg 29.5 MCHC 30.5 - 36.0 g/dL 32.9 RDW-CV 11.5 - 15.0 % 12.6 Platelet Count 150 - 400 k/uL 251 MPV 9.0 - 12.7 fL 10.0 Neut% % 49.5 Abs Neut (ANC) 1.45 - 7.50 k/uL 2.85 Lymph% % 34.7 Abs Lymph 1.00 - 4.00 k/uL 2.00 Reno% % 11.8 Abs Reno <0.87 k/uL 0.68 Eosin% % 3.0 Abs Eosin <0.46 k/uL 0.17 Baso% % 0.7 Abs Baso <0.11 k/uL 0.04 Immature Gran % % 0.3 IMMATURE GRANS (ABS) <0.10 k/uL <0.03 NRBC /100 WBC 0.0 Absolute nRBC <0.01 k/uL <0.01 DTYPE Auto Protein, Total 6.3 - 8.0 g/dL 6.8 Albumin 3.9 - 4.9 g/dL 3.7 (L) Calcium 8.5 - 10.2 mg/dL 8.9 Bilirubin, Total 0.2 - 1.3 mg/dL 0.4 Alkaline Phosphatase 34 - 123 U/L 119 AST 13 - 35 U/L 36 (H) ALT 7 - 38 U/L 40 (H) Glucose 74 - 99 mg/dL 97 BUN 7 - 21 mg/dL 11 Creatinine 0.58 - 0.96 mg/dL 0.69 Sodium 136 - 144 mmol/L 141 Potassium 3.7 - 5.1 mmol/L 4.0 Chloride 97 - 105 mmol/L 103 CO2 22 - 30 mmol/L 28 Anion Gap 9 - 18 mmol/L 10 eGFR >=60 mL/min/1.73m 109 Cholesterol, Total <200 mg/dL 112 Triglyceride <150 mg/dL 63 HDL Cholesterol >39 mg/dL 51 Non HDL Cholesterol <130 mg/dL 61 Fasting Time hrs 12 VLDL Cholesterol <30 mg/dL 13 TC:HDL Ratio <5.10 2.20 LDL Cholesterol <100 mg/dL 48 LDL:HDL Ratio <2.54 0.94 Hemoglobin A1C 4.3 - 5.6 % 5.1 Estimated Average Glucose mg/dL 100 Legend: (L) Low (H) High Hepatitis B Vaccine(3 of 3 - 19+ 3-dose series) due on 01/02/2015 Mammogram Screening due on 07/04/2020 Covid-19 Vaccine( season) Never done Behavioral Health Screening Never done Influenza Vaccine(Season Ended) due on 04/29/2024 Colorectal Cancer Screening due on 07/03/2024 Diabetes Screening due on 12/05/2026 Lipid Screening due on 12/05/2028 DTaP,Tdap,Td Vaccine(4 - Td or Tdap) due on 06/28/2029 Hepatitis C Screening Completed HIV Screening Completed HPV Vaccine Aged Out Pap Testing Discontinued HPV Testing Discontinued ASSESSMENT/PLAN: 1. Annual physical exam - ICD9: V70.0, ICD10: Z00.00 (primary diagnosis) - Counseled on healthy diet and regular exercise - Discussed need and benefit for weight loss. BMI 47.37 kg/(m^2) - Follow up for annual exam in one year 2. Gastroesophageal reflux disease without esophagitis - ICD9: 530.81, ICD10: K21.9 - stable on current regime 3. Palpitations - ICD9: 785.1, ICD10: R00.2 - follow-up with cardiology as recommended 4. Stroke-like symptoms - ICD9: 781.99, ICD10: R29.90 - follow-up with neurology as recommended 5. Vitamin D insufficiency - ICD9: 268.9, ICD10: E55.9 - VITAMIN D 25 HYDROXY Yaritza Fry APRN.XIOMARA Prescription instructions reviewed with patient as applicable. Patient advised if symptoms do not improve or if symptoms worsen sooner, to contact their primary care physician. Potential red flag symptoms discussed with the patient. Reviewed appropriate action plan to take if red flag symptoms occur. Patient agreeable to treatment plan. [facility] Instructions* Patient Instructions* Rianna Shea MD - 12/02/2023 9:50 AM EDT Your episodes of recurrent facial droop lasting 45 minutes or more, followed by headaches and hoursof fatigue, with unremarkable MRI brain and normal head and neck vessels is unlikely to be of cerebrovascular etiology, but rather raise concern for focal seizures vs complex migraines vs functional neurological disorder. Orders have been placed for EEG (brain wave test) and referral to general neurology for further work up and management. Rita Shea MD. MPH Staff, Cerebrovascular Division [facility] documented in this encounterMary[facility]04-[facility]24 History of Present illness Narrative* Rianna Shea MD - 12/02/2023 9:00 AM EDT CEREBR[facility]ULAR [facility] Initial Visit Consultation is requested by: Manda Mercado [address] [facility] [address] PCP: Manda Mercado [address] [place] [address] Manda Mercado for an opinion regarding recurrent neurologicalepisodes and here to rule out stroke as a cause. My final recommendations will be communicated backto the requesting physician by way of shared medical record or letter via US mail. CEREBROVASCULAR HISTORY Hector Leon is a 48 year old right handed female here for evalaution regarding recurrent neurological events to rule out stroke. Reason for Visit: follow-up - referred by Dr. Mercado History of Event: Patient diagnosed with shingles in 08/2023. Symptoms started post contagion period. Event History: Patient admitted to [place] from 10/21 to 10/23 sudden onset facial droop, slurred speech and decreased sensation to left side. Given tenecteplase. CT brain x2 and MRI negative. DC home on ASA and Lipitor. Interval: Patient presented to [place] ED on 10/31 with recurrent chest pain and left side facial droop. CTA of chest/abd/pelvis and CT brain negative. DC home. Weaned off gabapentin. New stroke S/S or events: transient facial droop. No triggers noted. Afterwards patient feels fatigued, slight headache, difficulty word finding, eyes don't want to focus. Within the last month, patient has been experiencing vision changes. Think it may be time for bi-focal has ophthalmology appointment scheduled. Sees Dr. Hayward, cardiology. 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 Antiplatelets/Anticoagulants: Aspirin - 81 mg Statins: Atorvastatin - 80 mg Do you have any planned upcoming surgeries or dental procedures? No Lalita Harman RN completing documentation PAST MEDICAL HISTORY Diagnosis Date Crohn's disease (HCC) 2000 crohns disease, rectal bleeding resolved after hysterectomy. GI in [place] Depression Dysfunctional uterine bleeding 2006 s/p hysterectomy Dysmenorrhea Eczema Esophageal reflux Gastroesophageal reflux Fibromyalgia Generalized anxiety disorder History of cardiovascular stress test 11/17/2020 The patient's resting heart rate was 85 bpm and blood pressure was 112/82 mmHg. The patient exercised according to the Modified Jagdish protocol. Total exercise 6 minutes and 15 seconds. The maximum heart rate was 134 bpm, which is 76% predicted for age. METs achieved was 4.4. The double product achieved was 05548. Peak heart rate was 134 bpm and peak blood pressure was 138/92 mmHg. History of echocardiogram 10/22/2023 LVEF 55-60%. No significant valvular abnormality. History of exercise stress test (without NM imaging) 11/07/2023 No electrocardiographic evidence of ischemia. Resting HR 68 bpm and BP was 116/80 mmHg. Exercised according to the Jagdish protocol. Test was terminated due to shortness of breath and leg fatigue. Total exercise time was 4 minutes and 30 seconds. Maximum HR was 157 bpm, which is 90% of the predicted heart rate for age. History of shingles 08/2023 LUQ, (L) flank, (L) posterior mid back. Lactose intolerance Lichen sclerosus Morbid obesity (HCC) Other acne Acne Recurrent cold sores Scalp psoriasis Vitamin D insufficiency PAST SURGICAL HISTORY Procedure Laterality Date COLONOSCOPY 2009 multiple for crohns disease. [employer]. Benign polyp COLONOSCOPY 09/21/2005 active colitis at [...] hysterectomy lavhbso PAST SURGICAL HISTORY OF tonsilectomy FAMILY HISTORY Problem Relation Age of Onset Rheumatologic disease Mother Diabetes Mother Arthritis Mother Hypothyroidism Mother Hypertension Father Lipids Father Rheumatologic disease Father RA Rheumatologic disease Brother RA Stroke Brother Colon Cancer Maternal Grandmother Emphysema Maternal Grandfather Alcohol/Drug Maternal Grandfather alcoholism Coronary Artery Disease Paternal Grandmother Diabetes Paternal Grandmother Stroke Paternal Grandmother Hypertension Paternal Grandfather Coronary Artery Disease Paternal Grandfather Diabetes Paternal Grandfather Stroke Paternal Grandfather Diabetes Son Cervical Cancer Maternal Aunt Social History Tobacco Use Smoking status: Former Packs/day: .25 Types: Cigarettes Quit date: 03/23/1993 Years since quittin.7 Passive exposure: Past Smokeless tobacco: Never Vaping Use Vaping Use: Never used Substance Use Topics Alcohol use: Not Currently Comment: drinking causes LEFT shoulder pain Drug use: Never MEDICATIONS Current Outpatient Medications Medication Sig aspirin, enteric coated (ASPIRIN, ENTERIC COATED) 81 mg EC tablet Take 81 mg by mouth daily with breakfast. lansoprazole (PREVACID) 30 mg capsule Take 1 capsule by mouth daily before breakfast. 1/2 hr beforemeal. atorvastatin (LIPITOR) 80 mg tablet Take 1 tablet by mouth once daily. clobetasol (TEMOVATE) 0.05 % ointment Apply 1 application to affected area twice daily. TO AFFECTEDAREA. gabapentin (NEURONTIN) 300 mg capsule Take 1 tablet PO daily x 1 week, then every other day x 1 week, then stop. (Patient not taking: Reported on 12/02/2023) No current facility-administered medications for this visit. ALLERGIES ALLERGIES Allergen Reactions Banana GI Upset Eggs [Egg] GI Upset Lactose Intolerance Prednisone Other: See Comments Black stools PHYSICAL EXAMINATION BP 110/74 (BP Site: Left Arm, BP Position: Sitting, BP Cuff Size: Large Adult) Pulse 78 Temp 36.3 C (97.3 F) (Temporal) Resp 14 Ht 154.9 cm (5' 1) Wt 115.9 kg (255 lb 9.6 oz) LMP 01/16/2006 SpO2 98% BMI 48.30 kg/m General: Well-developed, well-nourished, in no acute distress. HEENT: Normocephalic, atraumatic. Sclerae anicteric. Oropharynx clear. Neck: No carotid bruit. Heart: Regular rate and rhythm, S1 S2, no murmurs. Lungs: Clear to auscultation bilaterally. Abdomen: Abdomen soft, non-tender. Bowel sounds normal. No masses, organomegaly. Extremities: No edema, cyanosis, or clubbing. 2+ dorsalis pedis pulses bilaterally. Skin: No rash or ecchymoses. Neurological: Awake, alert, oriented to person, place, and time. Speech fluent, no dysarthria. Naming, repetition, recall, comprehension, calculation intact. Good attention and insight into illness. Cranial Nerves: PERRL, extraocular movements intact without nystagmus. Visual medrano full. Fundoscopic examination normal with sharp optic discs bilaterally. Facial sensation and movements normal andsymmetric. Palate elevates equal bilaterally. Tongue midline. Trapezius strength 5/5 bilaterally. Motor: Normal bulk and tone. Strength 5/5 throughout. No pronator drift or tremor. Sensation: Intact light touch, pinprick, temperature, proprioception, and vibration. Coordination: Rapid alternating movements symmetric bilaterally. [id number], [id number] without dysmetria bilaterally. Reflexes: 2+/4 reflexes symmetric bilaterally. Plantar response is flexor bilaterally. Gait: Narrow-based, normal spaced and stable without assistance. Tandem gait is stable. LABS Cholesterol: Cholesterol, Total (mg/dL) Date Value 10/22/2022 163 03/26/2015 147 Total Cholesterol, Nonfasting (mg/dL) Date Value 11/24/2020 163 LDL Cholesterol (mg/dL) Date Value 10/22/2022 97 03/26/2015 78 LDL Cholesterol, Nonfasting (mg/dL) Date Value 11/24/2020 90 HDL Cholesterol (mg/dL) Date Value 10/22/2022 53 03/26/2015 45 HDL Cholesterol, Nonfasting (mg/dL) Date Value 11/24/2020 53 Triglyceride (mg/dL) Date Value 10/22/2022 63 03/26/2015 118 Triglycerides, Nonfasting (mg/dL) Date Value 11/24/2020 102 Diabetes: Hemoglobin A1C (%) Date Value 10/22/2022 5.3 11/24/2020 5.4 IMAGING CTA Brain/Carotid 11/30/2023 IMPRESSION: No intracranial or extracranial arterial large vessel occlusion or significant stenosis. MRI Brain 10/23/2023 IMPRESSION: Unremarkable examination. No evidence for acute infarct or other significant signal abnormality in the brain. CTA H/N: 10/21/2023 IMPRESSION: Normal CTA head and neck Patient Entered Questionnaires 11/25/2023 Health Status Impact by Stroke or CVD Impact To a great extent PROMIS/NeuroQoL Score Percentiles 11/25/2023 Physical Health Physical Function Percentile 0 Sleep Percentile 1 Fatigue Percentile 0 Pain Interference Percentile 1 11/25/2023 PROMIS SOCIAL ROLE SCORE Social Role Satisfaction Percentile 1 11/25/2023 Mental Health NeuroQol Cognitive Function Percentile 0 General Self-Efficacy Percentile 0 11/25/2023 10/18/2022 10/06/2020 PROMIS Global Health Scale Physical Health Percentile 7 15 15 Mental Health Percentile 9 13 26* Percentiles provide an indication of how a patient's score ranks in relation to the [place] general population. > 31st percentile is within normal limits or better * < 31st percentile is at least SD worse than population, which may be clinically relevant < 16th percentile is at least 1 SD worse than population and warrants attention Descriptive Summary for PROMIS Physical Function T-score = 24 (Percentile 0) Unable - Do chores such as vacuuming or yard work. Much difficulty - Run errands and shop. Much difficulty - Walk about the house. Depression Screenin11/25/2023 PHQ-9 Score 11 Self-Harm Response Not at all PHQ-9 Scores: PHQ-9 Self-Harm (Item 9) Response: 0 - 9 No to Mild depression 0 - Not at all 10 - 14 Moderate depression 1 - Several Days > 15 Severe depression 2 - More than half the days 3 - Nearly every day 11/25/2023 Sleep Apnea Probability Score Probability (%) 28 (Sleep study not recommended) IMPRESSION Her episodes of recurrent facial droop lasting 45 minutes or more, followed by headaches and hours of fatigue, with unremarkable MRI brain and normal head and neck vessels is unlikely to be of cerebrovascular etiology, but rather raise concern for focal seizures vs complex migraines vs functional neurological disorder. I will place an order for EEG and refer to general neurology for further work up and management. Medical Decision Making: Medical Decision Making Level: 1 - N/A I spent a total of 60 minutes on the date of service which included preparing to see the patient, [id number] patient care, completing clinical documentation, obtaining and/or reviewing separately obtained history, performing a medically appropriate examination, counseling and educating the patient/family/caregiver, ordering medications, tests, or procedures, communicating with other HCPs (not separately reported), independently interpreting results (not separately reported), and communicatingresults to the patient/family/caregiver LATISHA Shea MD. MPH Staff, Cerebrovascular Division [facility] Manda Mercado [address] [facility] [address] Manda Mercado [address] [place] [address] documented in this encounterMary[facility]04-03-[facility]24 History of Present illness Narrative* Desiree Guidry RT(R) - 11/30/2023 10:40 AM EDT Radiology Service Progress Note PATIENT NAME: Hector Leon DATE OF SERVICE: November 30, 2023 TIME: 10:04 AM PATIENT IDENTITY VERIFICATION COMPLETED USING TWO (2) IDENTIFIERS: Name and Date of confirmedby patient verbally. FALL SCREENING: Has the patient had 2 falls in the last year or 1 fall with injury or currently using an Ambulatory Assistive Device (Walker, Cane, Wheelchair, Crutches, etc.)? No PATIENT GENDER DATA: Female. status: : No status: NO. PATIENT RELEVANT IMPLANT DATA REVIEWED: Yes PATIENT PRESENTS WITH AN IMPLANTABLE OR ATTACHED FIBER ANALYST: No RADIOLOGY DEPARTMENT: MR; Exam(s) Completed: Head: [place] of [place] MRA Neck: Carotids MRA, bilateral PERIPHERAL IV DATA: Not applicable SIGNED BY: RT Lupe(Jed) November 30, 2023 10:04 AM documented in this encounterMary[facility]03-27-2024 NoteHNO ID: [id number] Author: HUMZA HAYWARD APRN.SECURITY [employer]UTIONS ARCHITECT Service: ? Author Type: Nurse Practitioner Type: Progress Notes Filed: 11/23/2023 19:26 Note Text: Date: November 23, 2023 Chief Complaint: New Patient CARD [facility] Follow Up ([facility] ER f/u- CP.) HISTORY OF PRESENT ILLNESS: Hector Leon is a 48 year old female who presents for [facility] Follow Up ([facility] ER f/u- CP.). Patient states that she went to [facility] ED due to left-sided facial drooping and palpitations. Patient states that she underwent head CT, brain MRI, and chest CT which were unremarkable. 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 Patient states that she has an upcoming appointment with her neurologist. Patient underwent exercise ECG which did not indicate ischemia. Echo report was unremarkable. Patient states that her left-sided facial weakness has significantly improved since going to the hospital. Patient denies chest pain, dyspnea, lightheadedness, or edema. ALLERGIES Allergen Reactions Banana GI Upset Eggs [Egg] GI Upset Lactose Intolerance Prednisone Other: See Comments Black stools PAST MEDICAL HISTORY: PAST MEDICAL HISTORY Diagnosis Date Crohn's disease (HCC) 2000 crohns disease, rectal bleeding resolved after hysterectomy. GI in [place] Depression Dysfunctional uterine bleeding 2006 s/p hysterectomy Dysmenorrhea Eczema Esophageal reflux Gastroesophageal reflux Fibromyalgia Generalized anxiety disorder History of cardiovascular stress test 11/17/2020 The patient's resting heart rate was 85 bpm and blood pressure was 112/82 mmHg. The patient exercised according to the Modified Jagdish protocol. Total exercise 6 minutes and 15 seconds. The maximum heart rate was 134 bpm, which is 76% predicted for age. METs achieved was 4.4. The double product achieved was 23267. Peak heart rate was 134 bpm and peak blood pressure was 138/92 mmHg. History of echocardiogram 10/22/2023 LVEF 55-60%. No significant valvular abnormality. History of exercise stress test (without NM imaging) 11/07/2023 No electrocardiographic evidence of ischemia. Resting HR 68 bpm and BP was 116/80 mmHg. Exercised according to the Jagdish protocol. Test was terminated due to shortness of breath and leg fatigue. Total exercise time was 4 minutes and 30 seconds. Maximum HR was 157 bpm, which is 90% of the predicted heart rate for age. History of shingles 08/2023 LUQ, (L) flank, (L) posterior mid back. Lactose intolerance Lichen sclerosus Morbid obesity (HCC) Other acne Acne Recurrent cold sores Scalp psoriasis Vitamin D insufficiency PAST SURGICAL HISTORY Procedure Laterality Date COLONOSCOPY 2009 multiple for crohns disease. [employer]. Benign polyp COLONOSCOPY 09/21/2005 active colitis at [...] hysterectomy lavhbso PAST SURGICAL HISTORY OF tonsilectomy FAMILY HISTORY Problem Relation Age of Onset Rheumatologic disease Mother Diabetes Mother Arthritis Mother Hypothyroidism Mother Hypertension Father Lipids Father Rheumatologic disease Father RA Rheumatologic disease Brother RA Stroke Brother Colon Cancer Maternal Grandmother Emphysema Maternal Grandfather Alcohol/Drug Maternal Grandfather alcoholism Coronary Artery Disease Paternal Grandmother Diabetes Paternal Grandmother Stroke Paternal Grandmother Hypertension Paternal Grandfather Coronary Artery Disease Paternal Grandfather Diabetes Paternal Grandfather Stroke Paternal Grandfather Diabetes Son Cervical Cancer Maternal Aunt SOCIAL HISTORY: Tobacco Use: Quit 03/23/1993. Types: Cigarettes Alcohol Use: Not Currently (drinking causes LEFT shoulder pain) Drug Use: Never Employer And Job Title: No employer specified (unemployed) Years Of Education Completed: 14 years Marital Status: to Go with 3 children MEDICATIONS: Current Outpatient Medications Medication Sig gabapentin (NEURONTIN) 300 mg capsule Take 1 tablet PO daily x 1 week, then every other day x 1 week, then stop. aspirin, enteric coated (ASPIRIN, ENTERIC COATED) 81 mg EC tablet Take 81 mg by mouth daily with breakfast. lansoprazole (PREVACID) 30 mg capsule Take 1 capsule by mouth daily before breakfast. 1/2 hr before meal. atorvastatin (LIPITOR) 80 mg tablet Take 1 tablet by mouth once daily. clobetasol (TEMOVATE) 0.05 % ointment Apply 1 application to affected ar (more content not included)...[id number] Miscellaneous Notes* Telephone Encounter - Minnie Silva LPN - 11/10/2023 10:34 AM EDT Message left for patient's spouse advising the FMLA form he had brought in is completed and in medical records. Copy made for patient's chart. * Telephone Encounter - Manda Mercado MD - 11/10/2023 9:57 AM EDT Forms completed to the best of my knowledge. She has not seen her specialists yet, so I dont know how often she will need to follow up yet. * Telephone Encounter - Minnie Silva LPN - 11/10/2023 9:30 AM EDT Patient's spouse presents in office this am with FMLA paperwork for himself due to needing time offto take patient to and from appointments and procedures. He asked if he could get the paperwork completed by tomorrow. Advised him typically 5-7 business days to complete paperwork. 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 Form has been forwarded to: Provider's desk. Provider name: Parker Silva LPN documented in this encounterMary[facility] Hospital03-09-2024 Miscellaneous Notes* Telephone Encounter - Jen Shaffer LPN - 11/05/2023 11:54 AM EST Noted and patient notified. Jen Shaffer LPN * Telephone Encounter - Manda Mercado MD - 11/05/2023 9:22 AM EST Rx sent for 11 capsules which should get her through the 2 weeks. * Telephone Encounter - Jen Shaffer LPN - 11/05/2023 8:55 AM EST Patient stated that she does not have enough pills to take as directed. PATIENT only has pills for 3 days. Please advise pharmacy [facility] Shaffer LPN * Telephone Encounter - Manda Mercado MD - 11/05/2023 7:57 AM EST I would have her take the gabapentin daily for 1 week, then every other day for 1 week, then stop. * Telephone Encounter - Minnie Silva LPN - 11/04/2023 3:12 PM EST Phoned patient and reviewed provider message with her. She asked on the gabapentin if she is to do BID every other day or just once daily every other day? * Telephone Encounter - Manda Mercado MD - 11/04/2023 3:06 PM EST Rx sent for lipitor. ASA 81 mg is available OTC and she can pick this up at her pharmacy. She was prescribed the gabapentin for shingles. I would have her stop this medication to see if headache improves. I would have her take gabapentin every other day for 1 week, then stop. * Telephone Encounter - Humaira Biggs RN - 11/04/2023 11:57 AM EST Patient calling and states that during appointment it was not discussed whether or not patient was supposed to be taking gabapentin, Lipitor, and baby aspirin? If patient is supposed to be not taking gabapentin, patient asking if she should wean off of medication? Patient would need a prescription for this. If provider wants patient to continue Lipitor and baby aspirin,patient states that she is going to need prescriptions for these. Patient's pharmacy is [facility] Please review and advise, Humaira Biggs RN documented in this encounterMary[facility] Hospital03-08-2024 Miscellaneous Notes* Telephone Encounter - Gabby Andrade RN - 11/04/2023 2:58 PM EST Spoke with patient regarding reminder for stress test on Tuesday and given instructions documented in this encounterMarymount Hospital03-08-2024 History of Present illness Narrative* Manda Mercado MD - 11/04/2023 9:56 AM EST Chief Complaint Patient presents with: Hospital F/U: Patient was in ER and Hosp recently. HPI Hector Leon is a 48 year old female who presents here today for Hospital Discharge Follow up.. Patient admitted to [facility] from 10/21 to 10/23 for strokelike symptoms with CVA ruled out and chest pain. Presented with sudden onset facial droop, slurred speech and decreased sensation to let side of her body. Given tenecteplase and admitted to the ICU. CT brain x2 and MRI negative. Attributed symptoms to migraine vs medication side effect from gabapentin and was advised to follow up with neurology on discharge. Cardiac workup in the hospital negative. Attributed pain to acid reflux. Discharged home on ASA and Lipitor. Returned to the ED on 10/31 or complaint of recurrent chest pain and left side of face starting to drawl up again. Cardiac workup again negative with multiple EKGs and troponins. Neuro exam in the ERreportedly negative. CTA of chest/abd/pelvis and CT brain negative. Discharged home with recommendation to follow up with our office. Since discharge from the ER, she has been taking her ASA, Lipitor, and has been taking Prilosec OTCfor heartburn. Patient states that she developed recurrent sharp pain in her chest while seated at home on 11/01 with SOB, left sided facial droop, and slurred speech. Symptoms lasted about an hour andtook 4 baby ASA. Fatigued afterwards. Is not having these symptoms today. Admits to persistent leftsided headache associated with loss of appetite. Denies nausea, palpitations, lightheadedness, syncope, LE edema, severe headache, loss of vision. Patient reports that she had an echo while she was in the ICU and this was reportedly normal. This is not noted on the discharge summary but was confirmed prior to leaving the office. Patient was not given a neurology referral on discharge. Past medical history, appointments, medications, allergies reviewed. Previous Medical History PAST MEDICAL HISTORY Diagnosis Date Crohn's disease (HCC) 2000 crohns disease, rectal bleeding resolved after hysterectomy. GI in [place] Depression Dysfunctional uterine bleeding 2006 s/p hysterectomy Dysmenorrhea Eczema Esophageal reflux Gastroesophageal reflux Fibromyalgia Generalized anxiety disorder Lactose intolerance Lichen sclerosus Morbid obesity (HCC) Other acne Acne Recurrent cold sores Scalp psoriasis Vitamin D insufficiency Previous Surgical History PAST SURGICAL HISTORY Procedure Laterality Date COLONOSCOPY 2009 multiple for crohns disease. [facility]. Benign polyp COLONOSCOPY 09/21/2005 active colitis at [...] Banana GI Upset Eggs [Egg] GI Upset Lactose Intolerance Prednisone Other: See Comments Black stools Current Medications Current Outpatient Medications on File Prior to Visit Medication Sig aspirin, enteric coated (ASPIRIN, ENTERIC COATED) 81 mg EC tablet Take 81 mg by mouth once daily. Omeprazole Magnesium (PRILOSEC OTC) 20 mg tablet Take 20 mg by mouth once daily. gabapentin (NEURONTIN) 300 mg capsule Take 1 capsule by mouth two times a day for 30 days. valACYclovir (VALTREX) 1 gram tablet Take 1,000 mg by mouth three times a day. Patient ran out of medication a couple days ago (Patient not taking: Reported on 11/04/2023) clobetasol (TEMOVATE) 0.05 % ointment Apply 1 application to affected area twice daily. TO AFFECTEDAREA. (Patient not taking: Reported on 10/08/2023) lansoprazole (PREVACID) 30 mg capsule Take 1 capsule by mouth daily before breakfast. 1/2 hr beforemeal. No current facility-administered medications on file prior to visit. Social History Social History Tobacco Use Smoking status: Former Types: Cigarettes Quit date: 03/23/1993 Years since quittin.6 Smokeless tobacco: Never Vaping Use Vaping Use: Never used Substance Use Topics Alcohol use: Yes Comment: once per month Drug use: Never Review of Symptoms REVIEW OF SYSTEMS See HPI EXAM: BP 122/78 Pulse 83 Temp (!) 35.8 C (96.5 F) Resp 16 Wt 117.5 kg (259 lb) LMP 01/16/2006 SpO2 97% BMI 45.88 kg/m General Appearance: Well appearing, alert, in no acute distress, well-hydrated, well nourished.. Skin: Skin color, texture, turgor normal, no suspicious rashes or lesions. Lungs: Lungs clear to auscultation. No wheezing, rhonchi, rales.. Heart: RRR without murmur, gallop, or rubs. No ectopy. Abdomen: Normal abdominal exam, Abdomen soft, non-tender. Bowel sounds normal. No masses, organomegaly. Extremities: No deformities, edema, skin discoloration, clubbing or cyanosis. Good capillary refill. . Neurologic: Negative findings: speech normal, mental status intact, cranial nerves 2-12 intact, muscle tone normal, muscle strength normal, sensation to light touch and pinprick normal, reflexes normal and symmetric. Health Maintenance List Covid-19 Vaccine(1) Never done Hepatitis B Vaccine(3 of 3 - 19+ 3-dose series) due on 01/02/2015 Mammogram Screening due on 07/04/2020 Influenza Vaccine(1) due on 04/29/2023 Depression Assessment Never done Colorectal Cancer Screening due on 07/03/2024 Diabetes Screening due on 10/22/2025 Lipid Screening due on 10/22/2027 DTaP,Tdap,Td Vaccine(4 - Td or Tdap) due on 06/28/2029 Hepatitis C Screening Completed HIV Screening Completed HPV Vaccine Aged Out Pap Testing Discontinued HPV Testing Discontinued ASSESSMENT/PLAN: 1. Stroke-like symptoms - ICD9: 781.99, ICD10: R29.90 (primary diagnosis) Patient states she is continuing to get these symptoms with chest pain. Possibly 2/2 migraine vs TIA vs medication side effect. Will refer to neurology for further workup and order MRA of head and neck to rule out stenosis and aneurysm. Will have patient wean off of the gabapentin which was initially started for shingles pain and call if symptoms persist or worsen Red flags for re-assessment reviewed with patient in detail. - CONSULT TO NEUROLOGY 2. Transient cerebral ischemia, unspecified type - ICD9: 435.9, ICD10: G45.9 See above. - MRA BRAIN WO IVCON - MRA CAROTID WO IVCON 3. Chest pain, unspecified type - ICD9: 786.50, ICD10: R07.9 Recommend exercise stress testing. Echo normal in the hospital. Will refer to cardiology for persistent pain. - EXERCISE STRESS ECG (WITHOUT IMAGING) - CONSULT TO CARDIOLOGY 4. Migraine without status migrainosus, not intractable, unspecified migraine type - ICD9: 346.90, ICD10: G43.909 See above. If headaches and symptoms not improving with discontinuing gabapentin, consider prophylaxis. Manda Mercado MD documented in this encounterMarymount Hospital02-25-2024 Progress note Author Ioana Griffiths [facility] October 23, 2023 3:51am Note Date/Time October 23, 2023 3:52am [facility] Medical Records Department [address] [place] [address] Progress Note - Hospitalist 10/23/23 0351 MR#: [id number] Acct: [id number] Name: HECTOR LEON Rep #:[id number] : 1975 48 From: Ioana Griffiths MD PCP: Dr. Mike Mercado MD Status :ADM IN Location: ICU ICU04-[address] head without acute findings. Will dose with ASA 81 mg now and continue daily. 10/23/23 0351 <Electronically signed by Ioana Griffiths MD> Cosigner Signature (if applicable): CC: ~ Signed [facility] Work Phone: 1(155) 372-395402-24-2024 Consult note Author Johnathan Hutchison [facility] October 22, 2023 4:07pm Note Date/Time October 22, 2023 4:07pm [facility] Medical Records Department [address] [place] [address] Consultation - Machine Farmworker 10/22/23 1605 MR#: [id number] Acct: [id number] Name: HECTOR LEON Rep #:[id number] : 1975 48 From: Johnathan Hernandez PCP: Dr. 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 Ioana Griffiths MD) Mother Rheumatoid arthritis Hypertension Father Hypertension Grandmother VTE (venous thromboembolism) Maternal grandmother. Brother VTE (venous thromboembolism) CVA (cerebral vascular accident) Hypertension Surgical History (Updated 10/22/23 @ 00:[address] Ioana Griffiths MD) H/O tubal ligation H/O: hysterectomy S/P tonsillectomy and adenoidectomy Social History (Updated 10/21/23 @ 23:[address] Ioana Griffiths MD) household members: spouse Smoking Status: Never smoker alcohol intake: never substance use type: does not use Objective Data Objective Data Vital Signs: Vital Signs Last response Temperature 36.8 C 10/22/23 11:15 Temperature Source Temporal 10/22/23 11:15 Pulse Rate 72 10/22/23 15:15 Pulse Strength Normal (2+) 10/22/23 10:00 Respiratory Rate 12 10/22/23 15:15 Respiratory Effort Short of Breath 10/21/23 21:00 Blood Pressure 122/76 H 10/22/23 15:15 Blood Pressure Mean 91 10/22/23 15:15 Blood Pressure Source Monitor 10/22/23 15:15 Blood Pressure Position Semi-Fowlers 10/22/23 15:15 Blood Pressure Location Left Arm 10/22/23 15:15 Pulse Ox 97 10/22/23 15:15 Oxygen Delivery Method Room Air 10/22/23 15:15 I&O: I&O Last 24 Hours 10/21/23 10/22/23 10/22/23 23:59 11:59 23:59 Intake Total 1885 / 2125 240 / 2125 Output Total 1750 / 2225 475 / 2225 Balance 135 / -100 -235 / -100 I&O: Total Stay 10/21/23 20:58 thru 10/22/23 12:00 Intake Total 2125 Output Total 2225 Balance -100 Current Meds Ordered / Administered: Current meds ordered / Administered Generic Name Dose Route Start Last Admin Trade Name Freq PRN Reason Stop Dose Admin Acetaminophen 650 mg 10/22/23 00:38 Acetaminophen 325 Mg Tablet PO Q4H PRN PRN Fever, pain 1-10/10 Al Hydroxide/Mg Hydroxide 30 ml 10/22/23 00:38 Mag Hydrox/Al Hydrox/Simeth 30 Ml Udc PO Q6H PRN PRN Gastric Burning Albuterol Sulfate 2.5 mg 10/22/23 00:38 Albuterol 2.5 Mg/3 Ml Vial.Neb. INHALATION Q2H PRN PRN Dyspnea, wheezing Atorvastatin Calcium 80 mg 10/22/23 22:00 Atorvastatin Calcium 80 Mg Tablet PO QHS KAREEM Epinephrine HCl 0.3 mg 10/22/23 00:38 Epi Pen (Equiv) 0.3 Mg Syringe IM 10/23/23 23:39 X1 PRN Alleric Reaction Gabapentin 300 mg 10/22/23 00:38 10/22/23 09:18 Gabapentin 300 Mg Capsule PO 300 mg Q12 KAREEM Administration Nicardipine/Sodium Chloride 20 mg in 200 mls @ 50 mls/hr 10/22/23 00:38 Cardene-Shlomo 20 Mg/200 Ml Soln CONT INF Q4H PRN See Instructions Protocol 5 MG/HR Famotidine 20 mg/ Sodium 10 mls @ 300 mls/hr 10/22/23 00:38 Chloride IV X1 PRN Allergic Reaction Sodium Chloride 250 mls @ 15 mls/hr 10/22/23 01:18 IV .[id number] PRN Additional IVPB Infusion Sodium Chloride 250 mls @ 15 mls/hr 10/22/23 01:18 IV .[id number] PRN Saline Flush Labetalol HCl 20 mg 10/22/23 00:38 Labetalol (Prefilled) 20 Mg/4 Ml IV X1 PRN BP Goals Melatonin 3 mg 10/22/23 00:38 Melatonin 3 Mg Tablet PO QHS PRN PRN INSOMNIA Methylprednisolone 125 mg 10/22/23 00:38 Methylprednisolone 125 Mg/2 Ml Vial IV X1 PRN Allergic Reaction Ondansetron HCl 4 mg 10/22/23 00:38 Ondansetron 4 Mg/2 Ml Vial IV Q8H PRN PRN NAUSEA/VOMITING Prochlorperazine Edisylate 5 mg 10/22/23 00:38 Prochlorperazine 10 Mg/2 Ml Vial IV Q4H PRN PRN Breakthrough Nausea/Vomiting Senna/Docusate Sodium 2 tablet 10/22/23 00:38 Senna/Docusate Sodium 1 Tablet PO BID PRN PRN Constipation Sodium Chloride 10 ml 10/22/23 00:38 0.9% Saline Lock 10 Ml Syringe IV UD PRN Before/After Tenecteplase Administration Sodium Chloride 10 - 40 ml 10/22/23 01:18 0.9% Saline Lock 10 Ml Syringe IV UD PRN SALINE FLUSH Lab / Micro Data 10/22/23 03:55 10/22/23 03:55 Labs: Laboratory Results - last 24 hr 10/21/23 21:44: POC Glucose 112 H 10/21/23 21:49: WBC 9.4, RBC 4.55, Hgb 13.5, Hct 40.3, MCV 88.6, MCH 29.7, MCHC 33.5, RDW Std Deviation 42.0, RDW Coeff of Rebecca 12.8, Plt Count 288, MPV 9.8, Immature Gran % (Auto) 0.500, Neut % (Auto) 50.6, Lymph % (Auto) 39.2, [place] % (Auto) 7.8, Eos % (Auto) 1.5, Baso % (Auto) 0.4, Absolute Neuts (auto) 4.8, Absolute Lymphs (auto) 3.70, Nucleated RBC % 0, Platelet Estimate ADEQUATE, Plt Morphology Comment LARGE, RBC Morphology N CHROM, Anisocytosis RARE, D-Dimer Quant (PE/DVT) 1.30 H*, Sodium 140, Potassium 3.8, Chloride 108 H, Carbon Dioxide 25.0, Anion Gap 7, BUN 20 H, Creatinine 0.95, Estim Creat Clear Calc 90.41, Est GFR (MDRD) Af Amer 81, Est GFR (MDRD) Non-Af 67, BUN/Creatinine Ratio21.0 H, Glucose 109 H, Calcium 9.2, Magnesium 2.2, Total Bilirubin 0.20, Direct Bilirubin 0.10, AST 36, ALT 47, Alkaline Phosphatase 101, Troponin I High Sens 8, Total Protein 7.1, Albumin 3.2, Globulin 3.9, Lipase 35 10/22/23 00:04: Troponin I High Sens 8 10/22/23 03:55: WBC 8.5, RBC 4.24, Hgb 12.6, Hct 37.5, MCV 88.4, MCH 29.7, MCHC 33.6, RDW Std Deviation 41.5, RDW Coeff of Rebecca 12.9, Plt Count 279, MPV 9.3, Immature Gran % (Auto) 0.400, Neut % (Auto) 55.0, Lymph % (Auto) 35.1, [place] % (Auto) 7.7, Eos % (Auto) 1.3, Baso % (Auto) 0.5, Absolute Neuts (auto) 4.7, Absolute Lymphs (auto) 2.97, Nucleated RBC % 0, Sodium 141, Potassium 3.7, Chloride 109 H, Carbon Dioxide 28.0, Anion Gap 4 L, BUN 16, Creatinine 0.71, Estim Creat Clear Calc 119.66, Est GFR (MDRD) Af Amer 113, Est GFR (MDRD) Non-Af93, BUN/Creatinine Ratio 22.4 H, Glucose 103, Hemoglobin A1c 5.5, Calcium 8.4 L,Total Bilirubin 0.20, AST 25, ALT 45, Alkaline Phosphatase 78, Troponin I High Sens 10, Total Protein 6.6, Albumin 3.1 L, Globulin 3.5, Albumin/Globulin Ratio 0.9, Triglycerides 54, Cholesterol 176, LDL Cholesterol 110, VLDL Cholesterol 11, HDL Cholesterol 55, TSH 7.20 H, Free T4 0.78 Imaging Radiology Impression Chest X-Ray 10/21/23 21:39 IMPRESSION: Normal x-ray examination of the chest. Electronically Signed: Christiano Ordonez MD at 22:09 EST , Brain CT 10/21/23 21:45 IMPRESSION: Negative Brain CT without contrast. N.B. : The above Results were Read Back by Christiano Ordonez MD to Nadia Yao MD, and understanding confirmed on 10/21/2023 22:02:21 (ET). Electronically Signed: Christiano Ordonez MD at 22:02 EST , ADDENDUM: 10/21/232208 IMPRESSION: Negative Brain CT without contrast. N.B. : The above Results were Read Back by Christiano Ordonez MD to Nadia Yao MD, and understanding confirmed on 10/21/2023 22:02:21 (ET). Electronically Signed: Christiano Ordonez MD at 22:02 EST , Head/Neck CTA 10/21/23 21:46 IMPRESSION: Normal CTA Head and neck with contrast. Electronically Signed: Christiano Ordonez MD at 22:15 EST , ADDENDUM: 10/21/232 IMPRESSION: Normal CTA Head and neck with contrast. N.B. : Dr. Nadia Yao MD, confirmed on 10/21/2023 22:25:21 (ET) that the referring physician received the results and does not require a verbal communication. Electronically Signed: Christiano Ordonez MD at 22:15 EST , Assessment and Plan . Assessment and plan: Critical Care Time: The entirety of this encounter was done via Telemedicine 10/22/23 1607 <Electronically signed by Johnathan Hutchison MD> Cosigner Signature (if applicable): CC: Ninoska Montes De Oca; Sandee Alvarez; CLINICAL PSYCHIATRIST-C Angelique Henao; Param Piña; Lana Magallon MD; Yesi Lai MD; Kristin De Paz MD; Dr. Guero Stanford MD; Dr. Milton Becker MD; Dr. Ioana Griffiths MD; Dr. Jagdish Duenas MD; Dr. Mike Mercado MD; Dr. Andrei Martinez MD; Dr. Isaac Hernández DO; Dr. Garth Souza MD; Dr. Adi Lau MD; Dr. iVry Murillo MD; Dr. Shane Cummings MD; Dr.Jan Osmar MD; Dr. Lisseth Brock MD; Dr. Inderjit Miller MD; Dr. Bob Aquino DO; Dr. Robin Gamboa MD; Dr. Andrea Landa MD; Dr. Sven Castillo MD;Dr. Meghann Ramírez MD; Dr. Mark Cox MD; Dr. Tino Gonzales MD; Dr. Buck Bates MD; Dr. Omar Messer MD; Dr. Lay Garcia MD; Dr. Johnathan Hutchison MD;Dr. Chacha Rosas MD; Barbara Wolf DO; Michela Werner MD~ Signed [facility] Work Phone: 1(697) 727-973202-24-2024 Progress note Author Leilani Reece [facility] October 22, 2023 3:13pm Note Date/Time October 22, 2023 1:53pm [facility] Medical Records Department [address] [place] [address] Progress Note 10/22/23 1346 MR#: [id number] Acct: [id number] Name: HECTOR LEON Rep #:[id number] : 1975 48 From: Leilani Reece MD PCP: Dr. Mike Mercado MD Status :ADM IN Location: ICU ICU04-1 Subjective Subjective Patient seen and examined. She had no complaints. She had an uneventful night. Review of systems otherwise negative. She received tenecteplase yesterday due to concerns about a stroke. Objective Data Objective Data Vital Signs: Vital Signs Temp Pulse Resp BP Pulse Ox O2 Del Method 98.2 F 77 14 117/78 96 Room Air 10/22/23 11:15 10/22/23 13:15 10/22/23 13:15 10/22/23 13:15 10/22/23 13:15 10/22/23 13:15 Oxygen Delivery Method Room Air Weight: 263 lb 14.293 oz Body Mass Index (BMI) 49.8 Intake & Output: Intake and Output for Last 24 Hours 10/20/23 10/21/23 10/22/23 23:59 23:59 23:59 Intake Total 2125 / 2125 Output Total 2225 / 2225 Balance -100 / -100 Lab / Micro Data 10/22/23 03:55 10/22/23 03:55 Labs: Laboratory Results - last 24 hr 10/21/23 21:44: POC Glucose 112 H 10/21/23 21:49: WBC 9.4, RBC 4.55, Hgb 13.5, Hct 40.3, MCV 88.6, MCH 29.7, MCHC 33.5, RDW Std Deviation 42.0, RDW Coeff of Rebecca 12.8, Plt Count 288, MPV 9.8, Immature Gran % (Auto) 0.500, Neut % (Auto) 50.6, Lymph % (Auto) 39.2, [place] % (Auto) 7.8, Eos % (Auto) 1.5, Baso % (Auto) 0.4, Absolute Neuts (auto) 4.8, Absolute Lymphs (auto) 3.70, Nucleated RBC % 0, Platelet Estimate ADEQUATE, Plt Morphology Comment LARGE, RBC Morphology N CHROM, Anisocytosis RARE, D-Dimer Quant (PE/DVT) 1.30 H*, Sodium 140, Potassium 3.8, Chloride 108 H, Carbon Dioxide 25.0, Anion Gap 7, BUN 20 H, Creatinine 0.95, Estim Creat Clear Calc 90.41, Est GFR (MDRD) Af Amer 81, Est GFR (MDRD) Non-Af 67, BUN/Creatinine Ratio21.0 H, Glucose 109 H, Calcium 9.2, Magnesium 2.2, Total Bilirubin 0.20, Direct Bilirubin 0.10, AST 36, ALT 47, Alkaline Phosphatase 101, Troponin I High Sens 8, Total Protein 7.1, Albumin 3.2, Globulin 3.9, Lipase 35 10/22/23 00:04: Troponin I High Sens 8 10/22/23 03:55: WBC 8.5, RBC 4.24, Hgb 12.6, Hct 37.5, MCV 88.4, MCH 29.7, MCHC 33.6, RDW Std Deviation 41.5, RDW Coeff of Rebecca 12.9, Plt Count 279, MPV 9.3, Immature Gran % (Auto) 0.400, Neut % (Auto) 55.0, Lymph % (Auto) 35.1, [place] % (Auto) 7.7, Eos % (Auto) 1.3, Baso % (Auto) 0.5, Absolute Neuts (auto) 4.7, Absolute Lymphs (auto) 2.97, Nucleated RBC % 0, Sodium 141, Potassium 3.7, Chloride 109 H, Carbon Dioxide 28.0, Anion Gap 4 L, BUN 16, Creatinine 0.71, Estim Creat Clear Calc 119.66, Est GFR (MDRD) Af Amer 113, Est GFR (MDRD) Non-Af 93, BUN/Creatinine Ratio 22.4 H, Glucose 103, Hemoglobin A1c 5.5, Calcium 8.4 L, Total Bilirubin 0.20, AST 25, ALT 45, Alkaline Phosphatase 78, Troponin I High Sens 10, Total Protein 6.6, Albumin 3.1 L, Globulin 3.5, Albumin/Globulin Ratio 0.9, Triglycerides 54, Cholesterol 176, LDL Cholesterol 110, VLDL Cholesterol 11, HDL Cholesterol 55, TSH 7.20 H, Free T4 0.78 Radiography Diagnostic Testing: Radiology Impression Chest X-Ray 10/21/23 21:39 IMPRESSION: Normal x-ray examination of the chest. Electronically Signed: Christiano Ordonez MD at 22:09 EST , Brain CT 10/21/23 21:45 IMPRESSION: Negative Brain CT without contrast. N.B. : The above Results were Read Back by Christiano Ordonez MD to Nadia Yao MD, and understanding confirmed on 10/21/2023 22:02:21 (ET). Electronically Signed: Christiano Ordonez MD at 22:02 EST , ADDENDUM: 10/21/232208 IMPRESSION: Negative Brain CT without contrast. N.B. : The above Results were Read Back by Christiano Ordonez MD to Nadia Yao MD, and understanding confirmed on 10/21/2023 22:02:21 (ET). Electronically Signed: Christiano Ordonez MD at 22:02 EST , Head/Neck CTA 10/21/23 21:46 IMPRESSION: Normal CTA Head and neck with contrast. Electronically Signed: Christiano Ordonez MD at 22:15 EST , ADDENDUM: 10/21/232231 IMPRESSION: Normal CTA Head and neck with contrast. N.B. : Dr. Nadia Yao MD, confirmed on 10/21/2023 22:25:21 (ET) that the referring physician received the results and does not require a verbal communication. Electronically Signed: Christiano Ordonez MD at 22:15 EST , Physical Exam Const alert, oriented x3 and no apparent distress Constitutional Narrative: Obese General Appearance: cooperative and well developed HEENT normocephalic, head/scalp atraumatic, moist oral mucous membranes and oropharynxnormal Eyes PERRL and EOMs intact bilaterally Neck no lymphadenopathy, supple and no JVD Lymph Lymphatic: no lymphadenopathy noted and no lymphedema noted Resp normal respiratory effort, normal air movement and clear to auscultation bilaterally Cardio regular rate, regular rhythm, S1 normal heart sound, S2 normal heart sound and no murmurs GI normal to inspection, nondistended, normoactive bowel sounds, soft to palpation,non-tender and non-distended Extremity normal capillary refill, no clubbing, cyanosis or edema and no calf tenderness General Extremity: no tenderness to palpation of joints or extremities Skin General Skin Exam: no breakdown Neuro CN's II-XII intact bilaterally, no focal motor deficits, no sensory deficits noted and deep tendon reflexes 2+ bilaterally Motor Exam: strength 5/5 throughout and general weakness Psych thought process normal, cooperative and affect normal Appearance: appropriate Assessment & Plan Assessment/Plan (1) Stroke: (2) Chest pain: PLAN: Plan #left sided facial droop * to rule out a stroke * received tenecteplase yeserday. * for CT/MRI 24 hours after receiving TNK * PT/OT on board * fall precautions * on high intensity statin * A1C ordered. * #CHest pain * chest pain hasnt recurred * D dimer was elevated. * EKG showed no acute ST changes. * Duplex ordered. To do CTA chest when patient is getting CT brain * patient has a history of VTE; unclear if it is due to hypercoagulable panel * # Elevated BP: Noted on hypertensive. In light of concern for stroke to continue with permissive hypertension. If blood pressure remains elevated subsequently, will consider starting BP meds. #Super morbid obesity: BMI is 49.9. Complicates acute care, expected recovery and prognosis #Recent episode of shingles: on gabapentin. DVT prophylaxis; SCDs. No anticoagulation o/a of tenecteplase. Charges/Coding Visit Charges Inpatient E&M: 66076 Subs Hosp L2 10/22/23 1513 <Electronically signed by Leilani Reece MD> Leilani Reece MD Cosigner Signature (if applicable): CC: ~ Signed [facility] Work Phone: [phone] 786-137602-24-2024 History and physical note Author Ioana Griffiths [facility] October 22, 2023 12:16am Note Date/Time October 21, 2023 11:38pm [facility] Medical Records Department [address] [place] [address] H&P Exam - Hospitalist 10/21/23 2334 MR#: [id number] Acct: [id number] Name: HECTOR LEON Rep #:[id number] : 1975 48 From: Ioana Griffiths MD PCP: Dr. Mike Mercado MD Status :ADM IN Location: ICU ICU-1 HPI - General General Date of Admission: 10/21/23 Date of Service: 10/21/23 Chief Complaint: Chest pain, epigastric pain, onset facial droop/slurred speech while in the ED. HPI Narrative The patient is a 48 y/o F w/ PMHx: Morbid obesity, Fibromyalgia on chronic gabapentin who presents to the [facility] ED on 10/21/23 with onset of upper abdominal discomfort and chest discomfort starting at approximately 820 in the evening with chest discomfort described as a tightness with dyspnea associated with recent shingles however she reports completing recent treatments although she denies having been on any steroids with no reflux history and given not improving prompted eventual ED evaluation. She did report a history of VTE in her brother as well as a grandparent. In the ED while patient was undergoing her workup she had sudden onset of pronounced left facial droop and slurred speech with decreased sensation to the left side with NIH stroke score at that time 2 for persistent left facial droop and slight decrease sensation with stroke alert initiated. She notes the discomfort in her chest at its worst was 10 out of 10 in severity described as sharp stabbing and also pressure-like in sensation with associated dyspnea. She currently notes she has very mild discomfort more like pressure sensation in her lower midsternal region although with pressure and palpation she does have reproduction of the symptoms of note. Upon evaluation of left lateral side where she had a recent shingles outbreak itlooks completely resolved. Workup in the ED included T97.6, heart rate 84, BP initially 163/77, respiratory rate 18, 99% on room air with most recent repeat vitals T98.6, heart rate 94, BP 133/93, respiratory rate 13, 98% on room air, CBC with WBC 9.4, hemoglobin 13.5, platelet 288 without marked shift, coags withD-dimer 1.30, CMP with chloride 108, BUN/creatinine 20/0.95, glucose 109, hepatic profile not marked appearing, troponin 8, chest x-ray with no acute cardiopulmonary findings, CT brain with no acute intracranial findings, CTA headand neck noted to be normal, EKG was sinus rhythm with no acute evidence of ischemia. ED did have stroke alert on this patient and [facility] neurology wasinvolved with discussions as to whether not acute stroke versus stress related reaction with option to the patient for consideration of TNK with election to proceed with this. Most recent NIH stroke scale 0. In the ED patient administered tenecteplase as well as maintenance IV fluids. [facility] Medical History Fibromyalgia Morbid obesity Home Medications gabapentin 300 mg capsule 300 mg PO Q12H 10/21/23 [History Last Taken Unknown] Allergy/AdvReac Type Severity Reaction Status Date / Time egg Allergy Other Verified 09/27/23 20:47 prednisone AdvReac Nausea/Vom/ Verified 09/27/23 20:47 Diarrhea Family History (Updated 10/22/23 @ 00:[address] Ioana Griffiths MD) Mother Rheumatoid arthritis Hypertension Father Hypertension Grandmother VTE (venous thromboembolism) Maternal grandmother. Brother VTE (venous thromboembolism) CVA (cerebral vascular accident) Hypertension Surgical History (Updated 10/22/23 @ 00:[address] Ioana Griffiths MD) H/O tubal ligation H/O: hysterectomy S/P tonsillectomy and adenoidectomy Social History (Updated 10/21/23 @ 23:[address] Ioana Griffiths MD) household members: spouse Smoking Status: Never smoker alcohol intake: never substance use type: does not use ROS ROS Narrative Admission Review of Systems: CONSTITUTIONAL: No weight loss, fever, chills, + weakness or fatigue. HEENT: Eyes: No visual loss, blurred vision, double vision or yellow sclerae. Ears, Nose, Throat: No hearing loss, sneezing, congestion, runny nose or sore throat. SKIN: No rash or itching, lesions, wounds except for + resolved/healed left lateral flank status post recent shingles outbreak, all lesions healed. CARDIOVASCULAR: + chest pain, chest pressure or chest discomfort. No palpitations, edema, orthopnea, syncopal events. RESPIRATORY: + shortness of breath. No cough or sputum, wheezing, hemoptysis. GASTROINTESTINAL: No anorexia, nausea, vomiting or diarrhea, abdominal pain, melena, BRBPR. GENITOURINARY: No dysuria, frequency, urgency or retention. NEUROLOGICAL: + Transient facial droop, altered speech, sensation alteration. No headache, dizziness, syncope, change in bowel or bladder control, seizure. MUSCULOSKELETAL: + muscle, back pain, joint pain or stiffness. HEMATOLOGIC: No anemia, bleeding or bruising. LYMPHATICS: No enlarged nodes. No history of splenectomy. PSYCHIATRIC: No history of depression or anxiety. ENDOCRINOLOGIC: No reports of sweating, cold or heat intolerance. No polyuria orpolydipsia. ALLERGIES: No history of asthma, hives, eczema or rhinitis. Vital Signs Vital Signs Vital Signs: 10/21/23 21:00 10/21/23 21:00 10/21/23 21:51 Temperature 97.6 F L Temperature Source Temporal Pulse Rate 84 Respiratory Rate 18 Respiratory Effort Short of Breath Blood Pressure 163/77 H Blood Pressure Mean 105 Blood Pressure Source Blood Pressure Position Blood Pressure Location Pulse Ox 99 Oxygen Delivery Method Room Air Room Air 10/21/23 21:52 10/21/23 22:25 10/21/23 22:29 Temperature Temperature Source Pulse Rate 87 Respiratory Rate 17 Respiratory Effort Blood Pressure 146/82 H 118/82 H Blood Pressure Mean 103 Blood Pressure Source Blood Pressure Position Blood Pressure Location Pulse Ox 99 Oxygen Delivery Method Room Air Room Air 10/21/23 22:29 10/21/23 22:30 10/21/23 22:45 Temperature 98 F 97.8 F 97.7 F L Temperature Source Oral Oral Oral Pulse Rate 89 96 87 Respiratory Rate 30 H 12 12 Respiratory Effort Blood Pressure 127/90 H 127/90 H 137/88 H Blood Pressure Mean 102 102 104 Blood Pressure Source Monitor Monitor Monitor Blood Pressure Position Semi-Fowlers Semi-Fowlers Semi-Fowlers Blood Pressure Location Right Forearm Right Forearm Right Forearm Pulse Ox 100 99 98 Oxygen Delivery Method Room Air Room Air Room Air 10/21/23 23:00 10/21/23 23:15 Temperature 97.8 F 98.6 F Temperature Source Oral Oral Pulse Rate 89 94 Respiratory Rate 12 13 Respiratory Effort Blood Pressure 143/100 H 133/93 H Blood Pressure Mean 114 106 Blood Pressure Source Monitor Monitor Blood Pressure Position Semi-Fowlers Semi-Fowlers Blood Pressure Location Right Forearm Right Forearm Pulse Ox 94 98 Oxygen Delivery Method Room Air Room Air Weight Weight: 268 lb 8.368 oz Body Mass Index (BMI) 50.7 Physical Exam Narrative Physical Examination: General: Awake, alert, oriented x 3 and cooperative, seated upright in the ED bed in no apparent distress does note she had significant anxiety with onset of the neurological symptoms but is improved currently. Skin: Normal color, normal turgor, no icterus, no cyanosis, resolved left flank shingles lesions, healed over. HEENT: AT/NC, EOMI, PERRLA, mildly dry MM, no carotid bruits or JVD noted; however thickened neck makes evaluation difficult. Lungs: CTA bilaterally, moderate effort, mild decrease BL bases, no rales, ronchi or wheezing. Heart: Regular rate and rhythm; no gallop, rub audible, reproducible discomfort with palpation of the mid and lower sternal region of note. Abdomen: Soft, morbidly obese, NTTP, ND, mildly hyperactive BS, no appreciated HSM however habitus makes evaluation difficult. Extremities: No cyanosis, no clubbing, mild peripheral not markedly pitting ankle edema. Neurological: Patient awake, alert, oriented as noted, cognitive function intact; pupils equally reactive to light and accommodation, cranial nerves grossly normal, moving all 4 extremities, no focal deficits, strength preserved,finger-nose and [id number] appropriate, sensation intact, speech appropriate, no residual neurological deficits noted. Psychiatric: Affect appears fatigued otherwise normal, no acute evidence of depressive or anxiety feelings. Results Lab / Micro Data 10/21/23 21:49 10/21/23 21:49 Labs: Laboratory Results - last 24 hr 10/21/23 21:44: POC Glucose 112 H 10/21/23 21:49: WBC 9.4, RBC 4.55, Hgb 13.5, Hct 40.3, MCV 88.6, MCH 29.7, MCHC 33.5, RDW Std Deviation 42.0, RDW Coeff of Rebecca 12.8, Plt Count 288, MPV 9.8, Immature Gran % (Auto) 0.500, Neut % (Auto) 50.6, Lymph % (Auto) 39.2, [place] % (Auto) 7.8, Eos % (Auto) 1.5, Baso % (Auto) 0.4, Absolute Neuts (auto) 4.8, Absolute Lymphs (auto) 3.70, Nucleated RBC % 0, Platelet Estimate ADEQUATE, Plt Morphology Comment LARGE, RBC Morphology N CHROM, Anisocytosis RARE, D-Dimer Quant (PE/DVT) 1.30 H*, Sodium 140, Potassium 3.8, Chloride 108 H, Carbon Dioxide 25.0, Anion Gap 7, BUN 20 H, Creatinine 0.95, Estim Creat Clear Calc 90.41, Est GFR (MDRD) Af Amer 81, Est GFR (MDRD) Non-Af 67, BUN/Creatinine Ratio21.0 H, Glucose 109 H, Calcium 9.2, Total Bilirubin 0.20, Direct Bilirubin 0.10,AST 36, ALT 47, Alkaline Phosphatase 101, Troponin I High Sens 8, Total Protein 7.1, Albumin 3.2, Globulin 3.9, Lipase 35 Imaging Radiology Impression Chest X-Ray 10/21/23 21:39 IMPRESSION: Normal x-ray examination of the chest. Electronically Signed: Christiano Ordonez MD at 22:09 EST , Brain CT 10/21/23 21:45 IMPRESSION: Negative Brain CT without contrast. N.B. : The above Results were Read Back by Christiano Ordonez MD to Nadia Yao MD, and understanding confirmed on 10/21/2023 22:02:21 (ET). Electronically Signed: Christiano Ordonez MD at 22:02 EST , ADDENDUM: 10/21/23 2209 IMPRESSION: Negative Brain CT without contrast. N.B. : The above Results were Read Back by Christiano Ordonez MD to Nadia Yao MD, and understanding confirmed on 10/21/2023 22:02:21 (ET). Electronically Signed: Christiano Ordonez MD at 22:02 EST , Head/Neck CTA 10/21/23 21:46 IMPRESSION: Normal CTA Head and neck with contrast. Electronically Signed: Christiano Ordonez MD at 22:15 EST , ADDENDUM: 10/21/23 2232 IMPRESSION: Normal CTA Head and neck with contrast. N.B. : Dr. Nadia Yao MD, confirmed on 10/21/2023 22:25:21 (ET) that the referring physician received the results and does not require a verbal communication. Electronically Signed: Christiano Ordonez MD at 22:15 EST , Assessment & Plan Assessment/Plan (1) Stroke: (2) Chest pain: PLAN: Plan The patient is a 48 y/o F w/ PMHx: Morbid obesity, Fibromyalgia on chronic gabapentin who presents to the [facility] ED on 10/21/23 with onset of upper abdominal discomfort and chest discomfort starting at approximately 820 in the evening with chest discomfort described as a tightness with no dyspnea associated with recent shingles however she reports completing recent treatments although she denies having been on any steroids with no reflux history and given not improving prompted eventual ED evaluation. She did report a history of VTE in her brother as well as a grandparent. #1. Transient left-sided facial droop, slurred speech eventually resolved concerning for CVA status post TNK administration: Patient was initiated on TNK in the ED. Will admit to ICU per protocol with rn oncology research consultation per protocol, will obtain repeat CT head versus MRI in 24 hours depending on which is able to be performed at that jose however if only CT head is able to be performed then will need follow- up MRI brain, will obtain ECHO, PT/OT/Speech/Nutrition evaluation per protocol. Will allow permissive HTN, onceassured repeat CT head versus MRI with no acute intracranial bleeding will initiate aspirin therapy, will maintain in the interim on statin w/ AM FLP, fallprecautions. Mag, TSH, FLP, HgbA1c requested. Maintain on fall and aspiration precautions. Continue neurology consultation. #2. Chest Pain with elevated D-dimer of unclear significance with VTE notable family history: EKG in ED sinus rhythm with no acute evidence of ischemia, CXR w/ no acute cardiopulmonary findings, initial trop 8. Will place on a monitored bed to assure no acute myocardial infarction with serial cardiac enzymes and EKGs. Given CTA head already performed with contrast patient cannot at this time have repeat CTA chest. Will request duplex ultrasound in the a.m. however at the 24-hour jose may reconsider CTPA to further assess. Given recent TNK we will continue to closely monitor as patient cannot be anticoagulated at this point. Magnesium level requested. FLP in AM with statin initiated as noted #1. Did request that patient talk to her brother and find out if potentially he hada hypercoagulable panel done and if this was to relay the results to the hospitalist physician. #3. Elevated BP without hypertensive diagnosis: Given acute presentation we will continue permissive hypertension with as needed agents per stroke protocol. #4. Morbid Obesity: Weight loss and lifestyle changes encouraged, nutrition consulted. #5. Fibromyalgia: Encourage continued outpatient evaluation. #6. Recent left lateral flank shingles outbreak, resolved: We will continue patient gabapentin regimen. #7. Prophylaxis: SCDs. #8. CODE STATUS: Full code. Charges/Coding Visit Charges Inpatient E&M: 96896 Init Hosp L3 10/22/23 0016 <Electronically signed by Ioana Griffiths MD> Cosigner Signature (if applicable): CC: Dr. Ioana Griffiths MD; Dr. Mike Mercado MD~ Signed [facility] Work Phone: [phone]) 314-767902-24-2024 Discharge summary Author Nadia Cardenas [facility] October 22, 2023 12:10am Note Date/Time October 21, 2023 11:08pm [facility] Medical Records Department [address] [place] [address] Emergency Department Summary 10/21/23 MR#: [id number] Acct: [id number] Name: HECTOR LEON Rep #:[id number] : 1975 48 From: Nadia Cardenas MD PCP: Dr. Mike Mercado MD Status :ADM IN Location: ICU ICU04-1 HPI History of Present Illness Chief Complaint: Stroke Alert Informant: patient Narrative Narrative: Patient presents secondary to upper abdominal pain and chest pain. She states around 820 or so this evening she developed upper abdominal pain and points to the epigastric region. She states that then came up into the central portion ofher chest and feels like a tightness. She does feel short of breath. She reports having shingles recently but has completed her treatment. She was not on steroids. She denies having reflux. She reports history of blood clots in her brother as well as grandparent. Her brother also had prior heart infection as well as a stroke. [facility] Medical History Fibromyalgia Home Medications gabapentin 300 mg capsule 300 mg PO Q12H 10/21/23 [History Last Taken Unknown] Allergy/AdvReac Type Severity Reaction Status Date / Time egg Allergy Other Verified 09/27/23 20:47 prednisone AdvReac Nausea/Vom/ Verified 09/27/23 20:47 Diarrhea Surgical History H/O: hysterectomy Social History Smoking Status: Never smoker ROS ROS ED Constitutional Constitutional ED: Denies chills or fever(s) Eyes Eyes: Denies discharge from eye(s) ENT ENT ED: Denies discharge from eye(s), rhinorrhea or sore throat Cardiovascular Cardiovascular: Reports chest pain; Denies palpitations Respiratory/Chest Respiratory/Chest: Reports dyspnea; Denies cough Gastrointestinal Gastrointestinal: Reports abdominal pain; Denies diarrhea, nausea or vomiting Genitourinary Genitourinary ED: Denies dysuria Musculoskeletal Musculoskeletal: Denies back pain or extremity pain Integumentary Denies Abrasions or rash Neurologic Neurologic: Denies headache(s) or weakness Allergic/Immunologic Allergic/Immunologic ED: Denies lip swelling or urticaria EXAM Physical Exam Const Vital Signs: 10/21/23 21:00 10/21/23 21:00 10/21/23 21:51 Temperature 97.6 F L Temperature Source Temporal Pulse Rate 84 Respiratory Rate 18 Respiratory Effort Short of Breath Blood Pressure 163/77 H Blood Pressure Mean 105 Blood Pressure Source Blood Pressure Position Blood Pressure Location Pulse Ox 99 Oxygen Delivery Method Room Air Room Air 10/21/23 21:52 10/21/23 22:25 10/21/23 22:29 Temperature Temperature Source Pulse Rate 87 Respiratory Rate 17 Respiratory Effort Blood Pressure 146/82 H 118/82 H Blood Pressure Mean 103 Blood Pressure Source Blood Pressure Position Blood Pressure Location Pulse Ox 99 Oxygen Delivery Method Room Air Room Air 10/21/23 22:29 10/21/23 22:30 10/21/23 22:45 Temperature 98 F 97.8 F 97.7 F L Temperature Source Oral Oral Oral Pulse Rate 89 96 87 Respiratory Rate 30 H 12 12 Respiratory Effort Blood Pressure 127/90 H 127/90 H 137/88 H Blood Pressure Mean 102 102 104 Blood Pressure Source Monitor Monitor Monitor Blood Pressure Position Semi-Fowlers Semi-Fowlers Semi-Fowlers Blood Pressure Location Right Forearm Right Forearm Right Forearm Pulse Ox 100 99 98 Oxygen Delivery Method Room Air Room Air Room Air 10/21/23 23:00 Temperature 97.8 F Temperature Source Oral Pulse Rate 89 Respiratory Rate 12 Respiratory Effort Blood Pressure 143/100 H Blood Pressure Mean 114 Blood Pressure Source Monitor Blood Pressure Position Semi-Fowlers Blood Pressure Location Right Forearm Pulse Ox 94 Oxygen Delivery Method Room Air Positive well nourished and well developed General Appearance ED: well developed HEENT Reports moist mucous membranes Eyes EOMs intact bilaterally Chest Wall inspection of chest normal and palpation of chest normal Resp normal respiratory effort and clear to auscultation bilaterally Cardio regular rate and regular rhythm GI GI Narrative: Mild epigastric tenderness palpation. No guarding or rebound. Auscultation: hypoactive bowel sounds Palpation: soft Extremity normal to inspection Neuro oriented x3 Neuro Narrative: Moves all 4 extremities. Slight left facial droop noted at rest, however with speaking no deficits noted. Sensorium / Orientation: alert Skin no rashes or lesions noted MDM MDM MDM Narrative Medical decision making narrative: IV line established. Patient placed on engine monitor. EKG obtained to evaluate for cardiac arrhythmia/ischemia. Chest x-ray obtained to evaluate for acute lung pathology, cardiac size, or mediastinal abnormality. Labwork obtained to evaluate for leukocytosis, anemia, and electrolyte derangement. Patient given aspirin on arrival. While patient was undergoing her workup, I was asked to come back to the patient's room. Patient had pronounced left facial droop with some slurred speech. She reported decreased sensation to light touch on the left. NIH stroke score was completed at that time. She scored a 2 for persistent left facial droop with slight decrease sensation to light touch on the left. Stroke alert was initiated. Patient sent emergently for CT head and CTA of the head and neck. History & Record Review Discussion w/independent historian: Patient and Family Lab Data Attestation: I reviewed the patient's lab results. Labs: Laboratory Results - last 24 hr 10/21/23 10/21/23 21:44 21:49 WBC 9.4 RBC 4.55 Hgb 13.5 Hct 40.3 MCV 88.6 MCH 29.7 MCHC 33.5 RDW Std Deviation 42.0 RDW Coeff of Rebecca 12.8 Plt Count 288 MPV 9.8 Immature Gran % (Auto) 0.500 Neut % (Auto) 50.6 Lymph % (Auto) 39.2 [place] % (Auto) 7.8 Eos % (Auto) 1.5 Baso % (Auto) 0.4 Absolute Neuts (auto) 4.8 Absolute Lymphs (auto) 3.70 Nucleated RBC % 0 Platelet Estimate ADEQUATE Plt Morphology Comment LARGE RBC Morphology N CHROM Anisocytosis RARE D-Dimer Quant (PE/DVT) 1.30 H* Sodium 140 Potassium 3.8 Chloride 108 H Carbon Dioxide 25.0 Anion Gap 7 BUN 20 H Creatinine 0.95 Estim Creat Clear Calc 90.41 Est GFR (MDRD) Af Amer 81 Est GFR (MDRD) Non-Af 67 BUN/Creatinine Ratio 21.0 H Glucose 109 H Calcium 9.2 Total Bilirubin 0.20 Direct Bilirubin 0.10 AST 36 ALT 47 Alkaline Phosphatase 101 Troponin I High Sens 8 Total Protein 7.1 Albumin 3.2 Globulin 3.9 Lipase 35 POC Glucose 112 H Radiography Chest X-Ray - ED: 1 View, Read by ED Physician, Normal, Heart, Lungs and Mediastinum Diagnostic Testing: Clinical Impression(s) from Imaging Studies Chest X-Ray 10/21/23 21:39 IMPRESSION: Normal x-ray examination of the chest. Electronically Signed: Christiano Ordonez MD at 22:09 EST Reading Location ID and State: [facility] [place] , Service support , Brain CT 10/21/23 21:45 IMPRESSION: Negative Brain CT without contrast. N.B. : The above Results were Read Back by Christiano Ordonez MD to Nadia Yao MD, and understanding confirmed on 10/21/2023 22:02:21 (ET). Electronically Signed: Christiano Ordonez MD at 22:02 EST Reading Location ID and State: [facility] [place] , Service support , ADDENDUM: 10/21/232208 IMPRESSION: Negative Brain CT without contrast. N.B. : The above Results were Read Back by Christiano Ordonez MD to Nadia Yao MD, and understanding confirmed on 10/21/2023 22:02:21 (ET). Electronically Signed: Christiano Ordonez MD at 22:02 EST , Head/Neck CTA 10/21/23 21:46 IMPRESSION: Normal CTA Head and neck with contrast. Electronically Signed: Christiano Ordonez MD at 22:15 EST , ADDENDUM: 10/21/232231 IMPRESSION: Normal CTA Head and neck with contrast. N.B. : Dr. Nadia Yao MD, confirmed on 10/21/2023 22:25:21 (ET) that the referring physician received the results and does not require a verbal communication. Electronically Signed: Christiano Ordonez MD at 22:15 EST , EKG Initial EKG: Attestation: I personally reviewed and interpreted this EKG as follows: Interpretation: Sinus Rhythm (Sinus 85 with no acute ischemia.) Treatment and Re-Evaluation :: CBC was a white count of 9.4 with a hemoglobin of 13.5. Normal differential. D- dimer elevated at 1.3. Chemistry studies unremarkable with normal renal function. Glucose is 109. LFTs and lipase are normal. Troponin is normal at 8. Portable chest x- ray per my interpretation reveals chronic changes with no focal infiltrate. Radiology interpretation reviewed and agrees. CT of the head is unremarkable as well as CTA of the head and neck. Neurologist from [facility] beamed and examined the patient. He is not sure if this is acute stroke versus stress related reaction. He gave the patient the option of receiving TNK if she felt like this was a life altering symptom. She did elect to receive TNK and this was given. I will speak with hospitalist regarding admission for further workup. At this time patient's NIH score is 0 and she states she feels much better. Discharge Plan Triage Chief Complaint: Stroke Alert Other Complaint: Chest Pain ED Provider: Nadia Cardenas Dx/Rx/DC Orders Clinical Impression: Chest pain, Stroke Prescriptions: No Action gabapentin 300 mg capsule 300 mg PO Q12H Patient Comments: take 1 capsule by mouth twice a day Primary Care Provider: Mike Mercado Referrals: Mike Mercado MD [Primary Care Provider] - Disposition Disposition: Acute Care Hospital [facility] What to do if you have Problems For any increased pain, shortness of breath, bleeding, nausea or vomiting, chestpain, or any unexpected problems, contact your Primary Care Provider. Call [facility] ([phone]) or report to the closest Emergency Room. Call 911 if necessary. 10/22/23 0010 <Electronically signed by Nadia Cardenas MD> Cosigner Signature (if applicable): CC: Dr. Mike Mercado MD ~ Signed [facility] Work Phone: 1(950) 671-583102-23-2024 Discharge summary Author Nadia Cardenas [facility] October 22, 2023 12:10am Note Date/Time October 21, 2023 11:08pm [facility] Medical Records Department [address] [place] [address] Emergency Department Summary 10/21/23 MR#: [id number] Acct: [id number] Name: HECTOR LEON Rep #:[id number] : 1975 48 From: Nadia Cardenas MD PCP: Dr. Mike Mercado MD Status :ADM IN Location: ICU ICU04-1 HPI History of Present Illness Chief Complaint: Stroke Alert Informant: patient Narrative Narrative: Patient presents secondary to upper abdominal pain and chest pain. She states around 820 or so this evening she developed upper abdominal pain and points to the epigastric region. She states that then came up into the central portion ofher chest and feels like a tightness. She does feel short of breath. She reports having shingles recently but has completed her treatment. She was not on steroids. She denies having reflux. She reports history of blood clots in her brother as well as grandparent. Her brother also had prior heart infection as well as a stroke. [facility] Medical History Fibromyalgia Home Medications gabapentin 300 mg capsule 300 mg PO Q12H 10/21/23 [History Last Taken Unknown] Allergy/AdvReac Type Severity Reaction Status Date / Time egg Allergy Other Verified 09/27/23 20:47 prednisone AdvReac Nausea/Vom/ Verified 09/27/23 20:47 Diarrhea Surgical History H/O: hysterectomy Social History Smoking Status: Never smoker ROS ROS ED Constitutional Constitutional ED: Denies chills or fever(s) Eyes Eyes: Denies discharge from eye(s) ENT ENT ED: Denies discharge from eye(s), rhinorrhea or sore throat Cardiovascular Cardiovascular: Reports chest pain; Denies palpitations Respiratory/Chest Respiratory/Chest: Reports dyspnea; Denies cough Gastrointestinal Gastrointestinal: Reports abdominal pain; Denies diarrhea, nausea or vomiting Genitourinary Genitourinary ED: Denies dysuria Musculoskeletal Musculoskeletal: Denies back pain or extremity pain Integumentary Denies Abrasions or rash Neurologic Neurologic: Denies headache(s) or weakness Allergic/Immunologic Allergic/Immunologic ED: Denies lip swelling or urticaria EXAM Physical Exam Const Vital Signs: 10/21/23 21:00 10/21/23 21:00 10/21/23 21:51 Temperature 97.6 F L Temperature Source Temporal Pulse Rate 84 Respiratory Rate 18 Respiratory Effort Short of Breath Blood Pressure 163/77 H Blood Pressure Mean 105 Blood Pressure Source Blood Pressure Position Blood Pressure Location Pulse Ox 99 Oxygen Delivery Method Room Air Room Air 10/21/23 21:52 10/21/23 22:25 10/21/23 22:29 Temperature Temperature Source Pulse Rate 87 Respiratory Rate 17 Respiratory Effort Blood Pressure 146/82 H 118/82 H Blood Pressure Mean 103 Blood Pressure Source Blood Pressure Position Blood Pressure Location Pulse Ox 99 Oxygen Delivery Method Room Air Room Air 10/21/23 22:29 10/21/23 22:30 10/21/23 22:45 Temperature 98 F 97.8 F 97.7 F L Temperature Source Oral Oral Oral Pulse Rate 89 96 87 Respiratory Rate 30 H 12 12 Respiratory Effort Blood Pressure 127/90 H 127/90 H 137/88 H Blood Pressure Mean 102 102 104 Blood Pressure Source Monitor Monitor Monitor Blood Pressure Position Semi-Fowlers Semi-Fowlers Semi-Fowlers Blood Pressure Location Right Forearm Right Forearm Right Forearm Pulse Ox 100 99 98 Oxygen Delivery Method Room Air Room Air Room Air 10/21/23 23:00 Temperature 97.8 F Temperature Source Oral Pulse Rate 89 Respiratory Rate 12 Respiratory Effort Blood Pressure 143/100 H Blood Pressure Mean 114 Blood Pressure Source Monitor Blood Pressure Position Semi-Fowlers Blood Pressure Location Right Forearm Pulse Ox 94 Oxygen Delivery Method Room Air Positive well nourished and well developed General Appearance ED: well developed HEENT Reports moist mucous membranes Eyes EOMs intact bilaterally Chest Wall inspection of chest normal and palpation of chest normal Resp normal respiratory effort and clear to auscultation bilaterally Cardio regular rate and regular rhythm GI GI Narrative: Mild epigastric tenderness palpation. No guarding or rebound. Auscultation: hypoactive bowel sounds Palpation: soft Extremity normal to inspection Neuro oriented x3 Neuro Narrative: Moves all 4 extremities. Slight left facial droop noted at rest, however with speaking no deficits noted. Sensorium / Orientation: alert Skin no rashes or lesions noted MDM MDM MDM Narrative Medical decision making narrative: IV line established. Patient placed on engine monitor. EKG obtained to evaluate for cardiac arrhythmia/ischemia. Chest x-ray obtained to evaluate for acute lung pathology, cardiac size, or mediastinal abnormality. Labwork obtained to evaluate for leukocytosis, anemia, and electrolyte derangement. Patient given aspirin on arrival. While patient was undergoing her workup, I was asked to come back to the patient's room. Patient had pronounced left facial droop with some slurred speech. She reported decreased sensation to light touch on the left. NIH stroke score was completed at that time. She scored a 2 for persistent left facial droop with slight decrease sensation to light touch on the left. Stroke alert was initiated. Patient sent emergently for CT head and CTA of the head and neck. History & Record Review Discussion w/independent historian: Patient and Family Lab Data Attestation: I reviewed the patient's lab results. Labs: Laboratory Results - last 24 hr 10/21/23 10/21/23 21:44 21:49 WBC 9.4 RBC 4.55 Hgb 13.5 Hct 40.3 MCV 88.6 MCH 29.7 MCHC 33.5 RDW Std Deviation 42.0 RDW Coeff of Rebecca 12.8 Plt Count 288 MPV 9.8 Immature Gran % (Auto) 0.500 Neut % (Auto) 50.6 Lymph % (Auto) 39.2 [place] % (Auto) 7.8 Eos % (Auto) 1.5 Baso % (Auto) 0.4 Absolute Neuts (auto) 4.8 Absolute Lymphs (auto) 3.70 Nucleated RBC % 0 Platelet Estimate ADEQUATE Plt Morphology Comment LARGE RBC Morphology N CHROM Anisocytosis RARE D-Dimer Quant (PE/DVT) 1.30 H* Sodium 140 Potassium 3.8 Chloride 108 H Carbon Dioxide 25.0 Anion Gap 7 BUN 20 H Creatinine 0.95 Estim Creat Clear Calc 90.41 Est GFR (MDRD) Af Amer 81 Est GFR (MDRD) Non-Af 67 BUN/Creatinine Ratio 21.0 H Glucose 109 H Calcium 9.2 Total Bilirubin 0.20 Direct Bilirubin 0.10 AST 36 ALT 47 Alkaline Phosphatase 101 Troponin I High Sens 8 Total Protein 7.1 Albumin 3.2 Globulin 3.9 Lipase 35 POC Glucose 112 H Radiography Chest X-Ray - ED: 1 View, Read by ED Physician, Normal, Heart, Lungs and Mediastinum Diagnostic Testing: Clinical Impression(s) from Imaging Studies Chest X-Ray 10/21/23 21:39 IMPRESSION: Normal x-ray examination of the chest. Electronically Signed: Christiano Ordonez MD at 22:09 EST , Brain CT 10/21/23 21:45 IMPRESSION: Negative Brain CT without contrast. N.B. : The above Results were Read Back by Christiano Ordonez MD to Nadia Yao MD, and understanding confirmed on 10/21/2023 22:02:21 (ET). Electronically Signed: Christiano Ordonez MD at 22:02 EST , ADDENDUM: 10/21/239 IMPRESSION: Negative Brain CT without contrast. N.B. : The above Results were Read Back by Christiano Ordonez MD to Nadia Yao MD, and understanding confirmed on 10/21/2023 22:02:21 (ET). Electronically Signed: Christiano Ordonez MD at 22:02 EST , Head/Neck CTA 10/21/23 21:46 IMPRESSION: Normal CTA Head and neck with contrast. Electronically Signed: Christiano Ordonez MD at 22:15 EST , ADDENDUM: 10/21/232 IMPRESSION: Normal CTA Head and neck with contrast. N.B. : Dr. Nadia Yao MD, confirmed on 10/21/2023 22:25:21 (ET) that the referring physician received the results and does not require a verbal communication. Electronically Signed: Christiano Ordonez MD at 22:15 EST , EKG Initial EKG: Attestation: I personally reviewed and interpreted this EKG as follows: Interpretation: Sinus Rhythm (Sinus 85 with no acute ischemia.) Treatment and Re-Evaluation :: CBC was a white count of 9.4 with a hemoglobin of 13.5. Normal differential. D- dimer elevated at 1.3. Chemistry studies unremarkable with normal renal function. Glucose is 109. LFTs and lipase are normal. Troponin is normal at 8. Portable chest x- ray per my interpretation reveals chronic changes with no focal infiltrate. Radiology interpretation reviewed and agrees. CT of the head is unremarkable as well as CTA of the head and neck. Neurologist from [facility] beamed and examined the patient. He is not sure if this is acute stroke versus stress related reaction. He gave the patient the option of receiving TNK if she felt like this was a life altering symptom. She did elect to receive TNK and this was given. I will speak with hospitalist regarding admission for further workup. At this time patient's NIH score is 0 and she states she feels much better. Discharge Plan Triage Chief Complaint: Stroke Alert Other Complaint: Chest Pain ED Provider: Nadia Cardenas Dx/Rx/DC Orders Clinical Impression: Chest pain, Stroke Prescriptions: No Action gabapentin 300 mg capsule 300 mg PO Q12H Patient Comments: take 1 capsule by mouth twice a day Primary Care Provider: Mike Mercado Referrals: Mike Mercado MD [Primary Care Provider] - Disposition Disposition: Acute Care Hospital [facility] What to do if you have Problems For any increased pain, shortness of breath, bleeding, nausea or vomiting, chestpain, or any unexpected problems, contact your Primary Care Provider. Call [facility] ([phone]) or report to the closest Emergency Room. Call 911 if necessary. 10/22/23 0010 <Electronically signed by Nadia Cardenas MD> Cosigner Signature (if applicable): CC: Dr. Mike Mercado MD ~ Signed [facility] Work Phone: 1(477) 259-834002-10-2024 History of Present illness Narrative* Manda Mercado MD - 10/08/2023 10:17 AM EST Chief Complaint Patient presents with: ER F/U: Shingles- patient also has left eye issue wondering if shingle related as shingle developedon Left side. HPI Hector Leon is a 48 year old female who presents here today for Above Complaints.. Patient diagnosed with shingles rash along T6 dermatome at [facility] ED on 09/27. Pain started 4 days [...] sensation, fever, pain with eye movement, periorbital rednessor swelling. Past medical history, appointments, medications, allergies reviewed. Previous Medical History PAST MEDICAL HISTORY Diagnosis Date Crohn's disease (HCC) 2000 crohns disease, rectal bleeding resolved after hysterectomy. GI in [place] Depression Dysfunctional uterine bleeding 2006 s/p hysterectomy Dysmenorrhea Eczema Esophageal reflux Gastroesophageal reflux Fibromyalgia Generalized anxiety disorder Lactose intolerance Lichen sclerosus Morbid obesity (HCC) Other acne Acne Recurrent cold sores Scalp psoriasis Vitamin D insufficiency Previous Surgical History PAST SURGICAL HISTORY Procedure Laterality Date COLONOSCOPY 2009 multiple for crohns disease. [employer]. Benign polyp COLONOSCOPY 09/21/2005 active colitis at [...] application to affected area twice daily. TO AFFECTEDAREA. lansoprazole (PREVACID) 30 mg capsule Take 1 capsule by mouth daily before breakfast. 1/2 hr beforemeal. No current facility-administered medications on file prior [...] 5 MG/GRAM (0.5 %) EYE OINTMENT Manda Mercado MD [facility] Miscellaneous Notes* Telephone Encounter - Lalita Hagan LPN - 10/25/2022 5:00 PM EST Patient notified of results and recommendations. Voices understanding. Lalita Hagan LPN * Telephone Encounter - Manda Mercado MD - 10/25/2022 3:43 PM EST Low bilirubin is benign finding and does not need further workup. She did have a very slight elevation in her AST with other LFTs in normal range. Recommend limiting alcohol and tylenol. Recheck in 3months. Recommend she start 2,000 units of vitamin D supplement OTC on a daily basis for insufficiency. Neutrophils were low on her CBC with normal WBC. I would recheck this in 2-3 months as well. Other labs unremarkable. No other changes to regimen at this time. * Telephone Encounter - Esha Flores RN - 10/25/2022 10:29 AM EST Patient calls to review lab results viewed [...] advise, Esha Flores RN documented in this encounterMary[facility]02-24-[facility]23 History of Present illness Narrative* Manda Mercado MD - 10/22/2022 8:00 AM EST Chief Complaint Patient presents with: Physical: Wanting to discuss weight loss options. HPI Hector Leon is a 47 year old female [...] resolved after hysterectomy. Depression Dysfunctional uterine bleeding 2007 s/p hysterectomy Dysmenorrhea Eczema Esophageal reflux Gastroesophageal reflux Fibromyalgia Generalized anxiety disorder Lactose intolerance Lichen sclerosus Morbid obesity (HCC) Other acne Acne Recurrent cold sores Scalp psoriasis Previous Surgical History PAST SURGICAL HISTORY Procedure Laterality Date COLONOSCOPY 2009 multiple for crohns disease. [employer]. Benign polyp COLONOSCOPY 09/21/2005 active colitis at [...] three times daily as needed. Take 1 tabletby mouth three times a day for 10 days as needed clobetasol (TEMOVATE) 0.05 % ointment Apply 1 application to affected area twice daily. TO AFFECTEDAREA. 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 Good capillary refill. 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 Recommended she follow up with FEEDER SWITCHBOARD OPERATOR for persistent rash since she is refusing exam today. 7. HSV-1 (herpes simplex virus 1) infection - ICD9: 054.9, ICD10: B00.9 See above. Manda Mercado MD documented in this encounterMary[facility]01-04-[facility]23 History of Present illness Narrative* Jorgito Horta MD - 09/01/2022 7:17 PM EST Patient presents with: Cough: Chest congestion, sore [...] three times daily as needed. Take 1 tabletby mouth three times a day for 10 days as needed clobetasol (TEMOVATE) 0.05 % ointment Apply 1 application to affected area twice daily. TO AFFECTEDAREA. No current facility-administered medications for this visit. [...] pain, shortness of breath, and lethargy; in theER if severe. - COVID WITH FLUA+B, ROUTINE 2. Costochondritis - ICD9: 733.6, ICD10: M94.0 Reproducible musculoskeletal chest pain. As needed analgesia. Jorgito Horta MD documented in this encounterMary[facility]01-[facility]-2001 History of Past illness Narrative* Problem Noted Date Resolved Date Crohn's disease 08/29/2000 07/03/2019 Overview: crohns disease, rectal bleeding, resolved after hysterectomy. documented as of this encounter (statuses as of 09/03/2022) [address] History of Past illness Narrative* Problem Noted Date Resolved Date Crohn's disease 08/29/2000 07/03/2019 Overview: crohns disease, rectal bleeding, resolved after hysterectomy. documented as of this encounter (statuses as of 10/04/2022) [address] History of Past illness Narrative* Problem Noted Date Resolved Date Crohn's disease 08/29/2000 07/03/2019 Overview: crohns disease, rectal bleeding, resolved after hysterectomy. documented as of this encounter (statuses as of 10/26/2022) [address] History of Past illness Narrative* Problem Noted Date Resolved Date Crohn's disease 08/29/2000 07/03/2019 Overview: crohns disease, rectal bleeding, resolved after hysterectomy. documented as of this encounter (statuses as of 10/28/2022) [address] History of Past illness Narrative* Problem Noted Date Diagnosed Date Resolved Date Crohn's disease 08/29/2000 07/03/2019 Overview: crohns disease, rectal bleeding, resolved after hysterectomy. documented as of this encounter (statuses as of 09/12/2023) [address] History of Past illness Narrative* Problem Noted Date Diagnosed Date Resolved Date Crohn's disease 08/29/2000 07/03/2019 Overview: crohns disease, rectal bleeding, resolved after hysterectomy. documented as of this encounter (statuses as of 10/08/2023) [address] History of Past illness Narrative* Problem Noted Date Diagnosed Date Resolved Date Crohn's disease 08/29/2000 07/03/2019 Overview: crohns disease, rectal bleeding, resolved after hysterectomy. documented as of this encounter (statuses as of 11/04/2023) [facility] Narrative* Problem Noted Date Diagnosed Date Resolved Date Crohn's disease 08/29/2000 07/03/2019 Overview: crohns disease, rectal bleeding, resolved after hysterectomy. documented as of this encounter (statuses as of 11/05/2023) [facility] of [facility] illness Narrative* Problem Noted Date Diagnosed Date Resolved Date Crohn's disease 08/29/2000 07/03/2019 Overview: crohns disease, rectal bleeding, resolved after hysterectomy. documented as of this encounter (statuses as of 11/05/2023) [facility] of [facility] Narrative* Problem Noted Date Diagnosed Date Resolved Date Crohn's disease 08/29/2000 07/03/2019 Overview: crohns disease, rectal bleeding, resolved after hysterectomy. documented as of this encounter (statuses as of 11/08/2023) [facility] Narrative* Problem Noted Date Diagnosed Date Resolved Date Crohn's disease 08/29/2000 07/03/2019 Overview: crohns disease, rectal bleeding, resolved after hysterectomy. documented as of this encounter (statuses as of 12/01/2023) [facility] Narrative* Problem Noted Date Diagnosed Date Resolved Date Crohn's disease 08/29/2000 07/03/2019 Overview: crohns disease, rectal bleeding, resolved after hysterectomy. documented as of this encounter (statuses as of 12/07/2023) [facility] Narrative* Problem Noted Date Diagnosed Date Resolved Date Crohn's disease 08/29/2000 07/03/2019 Overview: crohns disease, rectal bleeding, resolved after hysterectomy. documented as of this encounter (statuses as of 12/08/2023) [address] History of Past illness Narrative* Problem Noted Date Diagnosed Date Resolved Date Crohn's disease 08/29/2000 07/03/2019 Overview: crohns disease, rectal bleeding, resolved after hysterectomy. documented as of this encounter (statuses as of 12/14/2023) [facility] Narrative* Problem Noted Date Diagnosed Date Resolved Date Crohn's disease 08/29/2000 07/03/2019 Overview: crohns disease, rectal bleeding, resolved after hysterectomy. documented as of this encounter (statuses as of 12/16/2023) [facility] Narrative* Problem Noted Date Diagnosed Date Resolved Date Crohn's disease 08/29/2000 07/03/2019 Overview: crohns disease, rectal bleeding, resolved after hysterectomy. documented as of this encounter (statuses as of 12/02/2023) [facility] Author Kristin De Paz [facility] October 23, 2023 11:21am Note Date/Time October 23, 2023 11:21am [facility] Medical Records Department [address] [place] [address] Consultation - Neurology 10/23/23 1118 MR#: [id number] Acct: [id number] Name: HECTOR LEON Rep #:[id number] : 1975 48 From: Kristin De Paz MD PCP: Dr. Mike Mercado MD Status :ADM IN Location: ICU ICU04-1 Assessment and Plan: Stroke Assessment/Plan HECTOR LEON is a 48 F with left sided numbness that has been off and on innature since beginning. It isn't clear what the etiology of this is but at this time there is no evidence pointing to stroke. I would expect symptoms to slowly resolve in any case and should episodes recur in the future we may be able to better characterize the source. - No further neurovascular recommendations at this time HPI Consult Data Date of Consult: 10/23/23 HPI Narrative HPI Narrative: HECTOR LEON is a 48 F with left sided numbness that has been off and on innature since beginning. It isn't clear what the etiology of this is but at this time there is no evidence pointing to stroke. I would expect symptoms to slowly resolve in any case and should episodes recur in the future we may be able to better characterize the source. [facility] Medical History Fibromyalgia Morbid obesity Home Medications gabapentin 300 mg capsule 300 mg PO Q12H 10/21/23 [History Last Taken Unknown] Allergy/AdvReac Type Severity Reaction Status Date / Time egg Allergy Other Verified 09/27/23 20:47 prednisone AdvReac Nausea/Vom/ Verified 09/27/23 20:47 Diarrhea Family History (Updated 10/22/23 @ 00:[address] Ioana Griffiths MD) Mother Rheumatoid arthritis Hypertension Father Hypertension Grandmother VTE (venous thromboembolism) Maternal grandmother. Brother VTE (venous thromboembolism) CVA (cerebral vascular accident) Hypertension Surgical History (Updated 10/22/23 @ 00:[address] Ioana Griffiths MD) H/O tubal ligation H/O: hysterectomy S/P tonsillectomy and adenoidectomy Social History (Updated 10/21/23 @ 23:[address] Ioana Griffiths MD) household members: spouse Smoking Status: Never smoker alcohol intake: never substance use type: does not use Vital Signs Vital Signs Vital Signs: 10/22/23 12:15 10/22/23 13:15 10/22/23 14:15 Temperature Temperature Source Pulse Rate 74 77 67 Pulse Strength Respiratory Rate 18 14 16 Respiratory Effort Respiratory Depth Respiratory Pattern Blood Pressure 128/84 H 117/78 122/88 H Blood Pressure [BP] Blood Pressure Mean 98 91 99 Blood Pressure Mean [BP] Blood Pressure Source Monitor Monitor Monitor Blood Pressure Source [BP] Blood Pressure Position Semi-Fowlers Semi-Fowlers Semi-Fowlers Blood Pressure Position [BP] Blood Pressure Location Left Arm Left Arm Left Arm Blood Pressure Location [BP] Pulse Ox 94 96 97 Oxygen Delivery Method Room Air Room Air Room Air 10/22/23 15:15 10/22/23 16:15 10/22/23 17:15 Temperature Temperature Source Pulse Rate 72 77 83 Pulse Strength Respiratory Rate 12 18 16 Respiratory Effort Respiratory Depth Respiratory Pattern Blood Pressure 122/76 H 128/92 H 104/51 L Blood Pressure [BP] Blood Pressure Mean 91 104 68 Blood Pressure Mean [BP] Blood Pressure Source Monitor Monitor Monitor Blood Pressure Source [BP] Blood Pressure Position Semi-Fowlers Semi-Fowlers Semi-Fowlers Blood Pressure Position [BP] Blood Pressure Location Left Arm Left Arm Left Arm Blood Pressure Location [BP] Pulse Ox 97 97 97 Oxygen Delivery Method Room Air Room Air Room Air 10/22/23 18:15 10/22/23 20:15 10/22/23 20:00 Temperature 97.2 F L Temperature Source Temporal Pulse Rate 82 81 Pulse Strength Respiratory Rate 16 17 Respiratory Effort Normal Non-Labored Respiratory Depth Normal Respiratory Pattern Normal Blood Pressure 118/84 H 143/104 H Blood Pressure [BP] Blood Pressure Mean 95 117 Blood Pressure Mean [BP] Blood Pressure Source Monitor Monitor Blood Pressure Source [BP] Blood Pressure Position Semi-Fowlers Semi-Fowlers Blood Pressure Position [BP] Blood Pressure Location Left Arm Right Forearm Blood Pressure Location [BP] Pulse Ox 94 99 Oxygen Delivery Method Room Air Room Air Room Air 10/22/23 21:15 10/22/23 22:00 10/22/23 22:15 Temperature Temperature Source Pulse Rate 80 82 Pulse Strength Normal (2+) Respiratory Rate 16 19 H Respiratory Effort Respiratory Depth Respiratory Pattern Blood Pressure 119/87 H 122/83 H Blood Pressure [BP] Blood Pressure Mean 97 96 Blood Pressure Mean [BP] Blood Pressure Source Monitor Monitor Blood Pressure Source [BP] Blood Pressure Position Semi-Fowlers Semi-Fowlers Blood Pressure Position [BP] Blood Pressure Location Right Forearm Right Forearm Blood Pressure Location [BP] Pulse Ox 99 95 Oxygen Delivery Method Room Air Room Air 10/22/23 23:30 10/23/23 00:00 10/23/23 00:00 Temperature 98.1 F Temperature Source Temporal Pulse Rate 82 81 Pulse Strength Respiratory Rate 16 14 Respiratory Effort Normal Non-Labored Respiratory Depth Normal Respiratory Pattern Normal Blood Pressure 128/92 H Blood Pressure [BP] 133/92 H Blood Pressure Mean 104 Blood Pressure Mean [BP] 105 Blood Pressure Source Monitor Blood Pressure Source [BP] Monitor Blood Pressure Position Semi-Fowlers Blood Pressure Position [BP] Semi-Fowlers Blood Pressure Location Right Forearm Blood Pressure Location [BP] Right Forearm Pulse Ox 95 97 Oxygen Delivery Method Room Air Room Air Room Air 10/23/23 01:00 10/23/23 02:00 10/23/23 03:00 Temperature Temperature Source Temporal Pulse Rate 82 84 83 Pulse Strength Respiratory Rate 18 17 18 Respiratory Effort Respiratory Depth Respiratory Pattern Blood Pressure Blood Pressure [BP] 127/92 H 130/84 H 128/82 H Blood Pressure Mean Blood Pressure Mean [BP] 103 99 97 Blood Pressure Source Blood Pressure Source [BP] Monitor Monitor Monitor Blood Pressure Position Blood Pressure Position [BP] Semi-Fowlers Semi-Fowlers Semi-Fowlers Blood Pressure Location Blood Pressure Location [BP] Right Forearm Right Forearm Right Forearm Pulse Ox 95 93 94 Oxygen Delivery Method Room Air Room Air Room Air 10/23/23 04:00 10/23/23 04:00 10/23/23 05:00 Temperature Temperature Source Pulse Rate 87 81 Pulse Strength Respiratory Rate 12 17 Respiratory Effort Normal Non-Labored Respiratory Depth Normal Respiratory Pattern Normal Blood Pressure Blood Pressure [BP] 116/79 115/79 Blood Pressure Mean Blood Pressure Mean [BP] 91 91 Blood Pressure Source Blood Pressure Source [BP] Monitor Monitor Blood Pressure Position Blood Pressure Position [BP] Semi-Fowlers Semi-Fowlers Blood Pressure Location Blood Pressure Location [BP] Right Forearm Right Forearm Pulse Ox 98 92 Oxygen Delivery Method Room Air Room Air Room Air 10/23/23 06:00 10/23/23 07:00 10/23/23 07:19 Temperature Temperature Source Pulse Rate 77 77 Pulse Strength Respiratory Rate 16 15 Respiratory Effort Respiratory Depth Respiratory Pattern Blood Pressure Blood Pressure [BP] 116/87 H 126/78 H Blood Pressure Mean Blood Pressure Mean [BP] 96 94 Blood Pressure Source Blood Pressure Source [BP] Monitor Monitor Blood Pressure Position Blood Pressure Position [BP] Semi-Fowlers Semi-Fowlers Blood Pressure Location Blood Pressure Location [BP] Right Forearm Right Forearm Pulse Ox 95 97 97 Oxygen Delivery Method Room Air Room Air Room Air 10/23/23 07:00 10/23/23 07:56 10/23/23 08:00 Temperature 98.5 F Temperature Source Temporal Pulse Rate 81 86 Pulse Strength Normal (2+) Respiratory Rate 18 16 Respiratory Effort Respiratory Depth Respiratory Pattern Blood Pressure 126/78 H Blood Pressure [BP] 104/61 Blood Pressure Mean 94 Blood Pressure Mean [BP] 75 Blood Pressure Source Monitor Blood Pressure Source [BP] Monitor Blood Pressure Position Semi-Fowlers Blood Pressure Position [BP] Semi-Fowlers Blood Pressure Location Right Forearm Blood Pressure Location [BP] Right Forearm Pulse Ox 96 97 Oxygen Delivery Method Room Air Room Air 10/23/23 09:00 10/23/23 10:12 10/23/23 11:00 Temperature Temperature Source Pulse Rate 89 90 90 Pulse Strength Respiratory Rate 15 22 H 16 Respiratory Effort Respiratory Depth Respiratory Pattern Blood Pressure 129/87 H 115/82 H Blood Pressure [BP] 116/85 H Blood Pressure Mean 101 93 Blood Pressure Mean [BP] 95 Blood Pressure Source Monitor Monitor Blood Pressure Source [BP] Monitor Blood Pressure Position Semi-Fowlers Sitting Blood Pressure Position [BP] Sitting Blood Pressure Location Right Forearm Right Forearm Blood Pressure Location [BP] Right Forearm Pulse Ox 97 97 97 Oxygen Delivery Method Room Air Room Air Room Air Weight Weight: 118.6 kg Body Mass Index (BMI) 49.4 EEG Results Procedure Details EEG Procedure Details: HECTOR LEON is a 48 year old F with a past medical history of , who presents for evaluation of Electroencephalogram on DATE at TIME NIHSS NIHSS Nursing Documentation NIHSS Nursing Documentation: Thrombolytic: Vital Signs & NIHSS Start: 10/21/23 22:15 Text: Assess and document vital signs and NIHSS Status: Active within 15 minutes of tenecteplase bolus administration Freq: [id number] Protocol: Activity Type Activity Date Activity User E-sign Co-sign Detail Recorded Client Recorded Date Recorded By Document 10/23/23 11:00 ARN Desktop 10/23/23 11:05 ARN 10/23/23 11:00 Vital Signs [Pulse] -Pulse Rate (60-100) 90 -Pulse Location Monitor [Respirations] -Respiratory Rate (12-18) 16 -Respiratory rate source Monitor -Pulse Oximetry 97 -Oxygen Delivery Method Room Air [Blood Pressure] -Blood Pressure (90/60-120/80) 115/82 H -Blood Pressure Mean 93 -Source Monitor -Position Sitting -Blood Pressure Location Right Forearm -Is the SBP > or = 180 No -Is the DBP > or = 105 No NIH Stroke Scale [NIHSS] A score of 0 is normal or asymptomatic . Total possible score is 42. Inpatient: RN or Physician to activate a stroke alert for onset of new stroke symptoms or with NIHSS increase >/= 3 points. Following change in neurological status, NIHSS will be performed per physician order or more frequently PRN. -1a. Level of Consciousness Alert; keenly responsive -1b. LOC Questions Answers BOTH questions correctly. -1c. LOC Commands Performs both tasks correctly . -2. Best Gaze Normal -3. Visual No visual loss -4. Facial Palsy Normal symmetrical movements -5a. Left Arm No drift; arm holds 90 (or 45 ) degrees for full 10 seconds -5b. Right Arm No drift; arm holds 90 (or 45 ) degrees for full 10 seconds -6a. Left Leg No drift; leg holds 30-degree position for full 5 seconds -6b. Right Leg No drift; leg holds 30-degree position for full 5 seconds -7. Limb Ataxia Absent -8. Sensory Normal; no sensory loss -9. Best Language No aphasia; normal -10. Dysarthria Normal -11. Extinction and Inattention No abnormality -Total 0 Query Text:A score of 0 is normal or asymptomatic. Total possible score is 42 . ED: Notify Physician for NIHSS increase by > / = 3 points. Inpatient: RN or Physician to activate a stroke alert for NIHSS increase of > / = 3 points. Lab / Micro Data 10/23/23 03:59 10/23/23 03:59 Labs: Laboratory Results - last 24 hr 10/23/23 03:59: WBC 7.8, RBC 4.42, Hgb 13.0, Hct 39.2, MCV 88.7, MCH 29.4, MCHC 33.2, RDW Std Deviation 42.5, RDW Coeff of Rebecca 13.1, Plt Count 290, MPV 9.4, Immature Gran % (Auto) 0.400, Neut % (Auto) 55.1, Lymph % (Auto) 34.2, [place] % (Auto) 8.3, Eos % (Auto) 1.7, Baso % (Auto) 0.3, Absolute Neuts (auto) 4.3, Absolute Lymphs (auto) 2.67, Nucleated RBC % 0, Sodium 138, Potassium 4.0, Chloride 106, Carbon Dioxide 28.0, Anion Gap 4 L, BUN 15, Creatinine 0.70, Estim Creat Clear Calc 120.67, Est GFR (MDRD) Af Amer 115, Est GFR (MDRD) Non-Af 95, BUN/Creatinine Ratio 21.4 H, Glucose 106, Calcium 8.8 Imaging Radiology Impression Venous Doppler Study 10/21/23 23:41 Interpretation Summary No evidence for acute deep venous thrombosis bilateral lower extremities with patent and compressible bilateral great saphenous veins. Ordering Physician: Ioana Griffiths Referring Physician: Manda Mercado Performed By: Apryl Shukla RVT Chest CTA 10/22/23 22:51 IMPRESSION: Normal CTA chest examination, without a demonstrated pulmonary embolism or arterial dissection. No acute pulmonary findings. Electronically Signed: Krystian Lange MD at 0:29 EST , Brain CT 10/22/23 23:30 IMPRESSION: No acute intracranial findings. Electronically Signed: Krystian Lange MD at 0:23 EST , Brain MRI 10/23/23 09:18 IMPRESSION: Unremarkable examination. No evidence for acute infarct or other significant signal abnormality in the brain. Electronically Signed: Diana Faust MD at 11:17 EST , Active Medications Active Medications Active Medications: Current Medications Generic Name Dose Route Start Last Admin Trade Name Freq PRN Reason Stop Dose Admin Acetaminophen 650 mg 10/22/23 00:38 10/23/23 03:52 Acetaminophen 325 Mg Tablet PO 650 mg Q4H PRN PRN Administration Fever, pain 1-06/07 Al Hydroxide/Mg Hydroxide 30 ml 10/22/23 00:38 Mag Hydrox/Al Hydrox/Simeth 30 Ml Udc PO Q6H PRN PRN Gastric Burning Albuterol Sulfate 2.5 mg 10/22/23 00:38 Albuterol 2.5 Mg/3 Ml Vial.Neb. INHALATION Q2H PRN PRN Dyspnea, wheezing Aspirin 81 mg 10/23/23 08:00 10/23/23 08:00 Aspirin 81 Mg Tab.Chew PO Not Given BREAKFAST KAREEM Atorvastatin Calcium 80 mg 10/22/23 22:00 10/22/23 20:27 Atorvastatin Calcium 80 Mg Tablet PO 80 mg QHS KAREEM Administration Epinephrine HCl 0.3 mg 10/22/23 00:38 Epi Pen (Equiv) 0.3 Mg Syringe IM 10/23/23 23:39 X1 PRN Alleric Reaction Gabapentin 300 mg 10/22/23 00:38 10/23/23 07:21 Gabapentin 300 Mg Capsule PO 300 mg Q12 KAREEM Administration Nicardipine/Sodium Chloride 20 mg in 200 mls @ 50 mls/hr 10/22/23 00:38 Cardene-Shlomo 20 Mg/200 Ml Soln CONT INF Q4H PRN See Instructions Protocol 5 MG/HR Famotidine 20 mg/ Sodium 10 mls @ 300 mls/hr 10/22/23 00:38 Chloride IV X1 PRN Allergic Reaction Sodium Chloride 250 mls @ 15 mls/hr 10/22/23 01:18 IV .[id number] PRN Additional IVPB Infusion Sodium Chloride 250 mls @ 15 mls/hr 10/22/23 01:18 IV .[id number] PRN Saline Flush Labetalol HCl 20 mg 10/22/23 00:38 Labetalol (Prefilled) 20 Mg/4 Ml IV X1 PRN BP Goals Melatonin 3 mg 10/22/23 00:38 10/22/23 20:27 Melatonin 3 Mg Tablet PO 3 mg QHS PRN PRN Administration INSOMNIA Methylprednisolone 125 mg 10/22/23 00:38 Methylprednisolone 125 Mg/2 Ml Vial IV X1 PRN Allergic Reaction Ondansetron HCl 4 mg 10/22/23 00:38 Ondansetron 4 Mg/2 Ml Vial IV Q8H PRN PRN NAUSEA/VOMITING Prochlorperazine Edisylate 5 mg 10/22/23 00:38 Prochlorperazine 10 Mg/2 Ml Vial IV Q4H PRN PRN Breakthrough Nausea/Vomiting Senna/Docusate Sodium 2 tablet 10/22/23 00:38 Senna/Docusate Sodium 1 Tablet PO BID PRN PRN Constipation Sodium Chloride 10 ml 10/22/23 00:38 0.9% Saline Lock 10 Ml Syringe IV UD PRN Before/After Tenecteplase Administration Sodium Chloride 10 - 40 ml 10/22/23 01:18 10/23/23 03:53 0.9% Saline Lock 10 Ml Syringe IV 20 ml UD PRN Administration SALINE FLUSH 10/23/23 1121 <Electronically signed by Kristin De Paz MD> Cosigner Signature (if applicable): CC: Ninoska Montes De Oca; Sandee Alvarez; SANDRA Henao; Param Piña; Lana Magallon MD; Yesi Lai MD; Kristin De Paz MD; Dr. Guero Stanford MD; Dr. Milton Becker MD; Dr. Ioana Griffiths MD; Dr. Jagdish Duenas MD; Dr. Mike Mercado MD; Dr. Andrei Martinez MD; Dr. Isaca Hernández DO; Dr. Garth Souza MD; Dr. Adi Lau MD; Dr. Viry Murillo MD; Dr. Shane Cummings MD; Dr. Prudencio Prasad MD; Dr. Lisseth Brock MD; Dr. Inderjit Miller MD; Dr. Bob Aquino DO; Dr. Robin Gamboa MD; Dr. Andrea Landa MD; Dr. Leilani Reece MD; Dr. Sven Castillo MD; Dr. Meghann Ramírez MD; Dr. Mark Cox MD; Dr. Tino Gonzales MD; Dr. Buck Bates MD; Dr. Omar Messer MD; Dr. Lay Garcia MD; Dr. Johnathan Hutchison MD; Dr. Chacha Rosas MD; Barbara Wolf DO; Michela Werner MD~ Signed [facility] Work Phone: Discharge summary Author Tl Tomas [facility] October 23, 2023 11:57am Note Date/Time October 23, 2023 11:53am [facility] Medical Records Department [address] [place] [address] Instructions for Home/Discharge Instructions 10/23/23 1152 MR#: [id number] Acct: [id number] Name: HECTOR LEON Rep #:[id number] : 1975 48 From: Tl Begum deidra RUIZ PCP: Dr. Mike Mercado MD Status :ADM IN Discharge Instructions Diet Discharge Diet: No restrictions Activity Discharge Activity: No Restrictions Weight Bearing Status: Full weight bearing Follow Up Care Test Results: Test results from this visit will be discussed in further detail at your follow- up appointment, if applicable. Discharge Plan Admission Admit Date/Time: 10/21/23 23:36 Primary Reason for Your Visit: strokelike symptoms Attending Provider: Tl Tomas Primary Care Provider: Mike Mercado Consulting Providers: Kristin De Paz; Guero Stanford; Yesi Lai; Ninoska Montes De Oca; Lana Magallon; Andrei Martinez; Viry Murillo; Prudencio Prasad; Shane Cummings; Barbara Wolf; Bob Aquino; Sandee Alvarez; Andrea Landa; Robin Gamboa; Param Lai; Meghann Ramírez; Tino Gonzales; Lay Garcia; Michela Werner;Ioana Griffiths; Milton Becker; Jagdish Duenas; Isaac Hernández; Garth Souza; Chacha Rosas; Adi Lau; Lisseth Brock; Inderjit Miller; Sven Castillo;Mark Cox; Buck Bates; Omar Messer; Johnathan Hutchison; Angelique Henao NP; Leilani Reece Discharge Orders/Prescriptions Prescriptions: Continued gabapentin 300 mg capsule 300 mg PO Q12H Patient Comments: take 1 capsule by mouth twice a day Referrals / Follow Up: Mike Mercado MD [Primary Care Provider] - Disposition Disposition (needs filled in before D/C Order can be placed): Home, Self Care 10/23/23 1157<Electronically signed by Tl Tomas DO>Tl Tomas DO CC: Ninoska Tavon; Sandee Alvarez; SANDRA Henao; Param Piña; Lana Magallon MD; Yesi Lai MD; Kristin De Paz MD; Dr. Guero Stanford MD; Dr. Milton Becker MD; Dr. Ioana Griffiths MD; Dr. Jagdish Duenas MD; Dr. Mike Mercado MD; Dr. Andrei Martinez MD; Dr. Isaac Hernández DO; Dr. Garth Souza MD; Dr. Adi Lau MD; Dr. Viry Murillo MD; Dr. Shane Cummings MD; Dr.Jan Osmar MD; Dr. Lisseth Brock MD; Dr. Inderjit Miller MD; Dr. Bob Aquino DO; Dr. Robin Gamboa MD; Dr. Andrea Landa MD; Dr. Leilani Reece MD;Dr. Sven Castillo MD; Dr. Meghann Ramírez MD; Dr. Mark Cox MD; Dr. Tino Gonzales MD; Dr. Buck Bates MD; Dr. Omar Messer MD; Dr. Lay Garcia MD; Dr. Johnathan Hutchison MD; Dr. Chacha Rosas MD; Barbara Wolf DO; Michela Werner MD ~ Signed [facility] Work Phone: Evaluation + Plan note No data available for this section [facility] Evaluation note* Diagnosis Influenza-like illness- Primary Influenza with other respiratory manifestations Costochondritis [facility]ze's [facility] for [facility] for [facility] cancer [facility] Diagnosis Vitamin D insufficiency- Primary Unspecified vitamin D deficiency Elevated AST (SGOT) Nonspecific elevation of levels of transaminase or lactic acid dehydrogenase (LDH) Neutropenia, unspecified type (HCC) [facility] Diagnosis Annual physical exam- Primary Routine general medical examination at a health care facility Gastroesophageal reflux disease, unspecified whether esophagitis present Generalized anxiety disorder Morbid obesity (HCC) Morbid obesity Recurrent cold sores Herpes simplex without mention of complication Lichen sclerosus 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 Herpes simplex without mention of complication [facility] Diagnosis Encounter for screening mammogram for breast cancer [facility] noteNo assessment information [facility] Work Phone: Evaluation note* Diagnosis Herpes zoster without complication- Primary Herpes zoster without mention of complication Post herpetic neuralgia Herpes zoster with other nervous system complications Bacterial conjunctivitis Other conjunctivitis [facility] Diagnosis Onset Date Resolution Status Chest pain acute Stroke [facility] Work Phone: Evaluation note* Diagnosis Stroke-like symptoms- Primary Other symptoms involving nervous and musculoskeletal systems Transient cerebral ischemia, unspecified type Chest pain, unspecified type Migraine without status migrainosus, not intractable, unspecified migraine type [facility] Diagnosis Post herpetic neuralgia Herpes zoster with other nervous system complications [facility] Diagnosis Chest pain, unspecified type [facility] Diagnosis Transient cerebral ischemia, unspecified type [facility] Diagnosis Annual physical exam- Primary Routine general medical examination at a health care facility Gastroesophageal reflux disease without esophagitis Esophageal reflux Palpitations Stroke-like symptoms Other symptoms involving nervous and musculoskeletal systems Vitamin D insufficiency Unspecified vitamin D deficiency [facility] Diagnosis Vitamin D insufficiency- Primary Unspecified vitamin D deficiency [facility] Diagnosis Onset Date Resolution Status Chest pain resolved Chest pain in adult acute Cholecystitis [facility] Work Phone: Evaluation note* Diagnosis Acute cholecystitis- Primary S/P laparoscopic cholecystectomy Other postprocedural status Fatty liver Other chronic nonalcoholic liver disease Productive cough Cough Elevated LFTs Other abnormal blood chemistry Productive cough Cough [facility] Diagnosis Productive cough- Primary Cough [facility] Diagnosis Onset Date Resolution Status Chest pain resolved Chest pain in adult resolved Cholecystitis resolved Dysuria acute Fatty liver determined by biopsy acute Morbid obesity acute S/P cholecystectomy acute [facility] Work Phone: Evaluation note* Diagnosis Popping of right ear- Primary Right ear pain Otalgia, unspecified [facility] Diagnosis Pulsatile tinnitus, unspecified ear- Primary Transient neurological symptoms 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 Hemiplegic migraine, with intractable migraine, so stated, without mention of status migrainosus Analgesic rebound headache Drug induced headache, not elsewhere classified [facility]* Diagnosis Transient neurological symptoms [facility] Diagnosis Vitamin D deficiency- Primary Unspecified vitamin D deficiency Fatty liver Other chronic nonalcoholic liver disease Gastroesophageal reflux disease without esophagitis Esophageal reflux Mixed hyperlipidemia Class 3 severe obesity due to excess calories with serious comorbidity and body mass index (BMI) of 45.0 to 49.9 in adult (HCC) Fibromyalgia Mylagia and myositis, unspecified Screening for diabetes mellitus Screening for metabolic disorder Screening for thyroid disorder [facility] Diagnosis Class 3 severe obesity due to excess calories with serious comorbidity and body mass index (BMI) of 45.0 to 49.9 in adult (HCC)- Primary [facility]* Diagnosis Productive cough Cough [facility] Diagnosis Mixed hyperlipidemia- Primary Vitamin D deficiency Unspecified vitamin D deficiency Fatty liver Other chronic nonalcoholic liver disease Gastroesophageal reflux disease without esophagitis Esophageal reflux Fibromyalgia Mylagia and myositis, unspecified Class 3 severe obesity due to excess calories with serious comorbidity and body mass index (BMI) of 45.0 to 49.9 in adult (HCC) [facility] Diagnosis Transient neurological symptoms- Primary Stroke-like symptoms Other symptoms involving nervous and musculoskeletal systems [facility]* Diagnosis Encounter for screening mammogram for breast cancer [facility] Diagnosis 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 Hemiplegic migraine, with intractable migraine, so stated, without mention of status migrainosus [facility] Diagnosis 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- Primary Hemiplegic migraine, with intractable migraine, so stated, without mention of status migrainosus [facility] Diagnosis Mixed hyperlipidemia- Primary Vitamin D deficiency Unspecified vitamin D deficiency Fatty liver Other chronic nonalcoholic liver disease Gastroesophageal reflux disease without esophagitis Esophageal reflux Fibromyalgia Mylagia and myositis, unspecified Class 3 severe obesity due to excess calories with serious comorbidity and body mass index (BMI) of 45.0 to 49.9 in adult (HCC) [facility] Diagnosis Mixed hyperlipidemia- Primary Vitamin D deficiency Unspecified vitamin D deficiency Fatty liver Other chronic nonalcoholic liver disease Gastroesophageal reflux disease without esophagitis Esophageal reflux Fibromyalgia Mylagia and myositis, unspecified Class 3 severe obesity due to excess calories with serious comorbidity and body mass index (BMI) of 45.0 to 49.9 in adult Encounter for long-term (current) use of medications Encounter for long-term (current) use of other medications Insulin resistance Dysmetabolic Syndrome X [facility] Diagnosis Class 2 severe obesity with serious comorbidity and body mass index (BMI) of 38.0 to 38.9 in adult, unspecified obesity type (HCC)- Primary [facility] Diagnosis 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- Primary Hemiplegic migraine, with intractable migraine, so stated, without mention of status migrainosus [facility] Diagnosis Hematuria, unspecified type- Primary Acute cystitis without hematuria Acute cystitis Mixed hyperlipidemia- Primary Vitamin D deficiency Unspecified vitamin D deficiency Fatty liver Other chronic nonalcoholic liver disease Gastroesophageal reflux disease without esophagitis Esophageal reflux Fibromyalgia Mylagia and myositis, unspecified Class 3 severe obesity due to excess calories with serious comorbidity and body mass index (BMI) of 45.0 to 49.9 in adult (HCC) Encounter for long-term (current) use of medications Encounter for long-term (current) use of other medications Insulin resistance Dysmetabolic Syndrome X [facility]* Diagnosis POTS (postural orthostatic tachycardia syndrome)- Primary Tachycardia, unspecified Palpitations Mixed hyperlipidemia- Primary Vitamin D deficiency Unspecified vitamin D deficiency Fatty liver Other chronic nonalcoholic liver disease Gastroesophageal reflux disease without esophagitis Esophageal reflux Fibromyalgia Mylagia and myositis, unspecified Class 3 severe obesity due to excess calories with serious comorbidity and body mass index (BMI) of 45.0 to 49.9 in adult ([facility]) Encounter for long-term (current) use of medications Encounter for long-term (current) use of other medications Insulin resistance Dysmetabolic Syndrome X [facility] Diagnosis Hemiplegic migraine, intractable, without status migrainosus- Primary Mixed hyperlipidemia- Primary Vitamin D deficiency Unspecified vitamin D deficiency Fatty liver Other chronic nonalcoholic liver disease Gastroesophageal reflux disease without esophagitis Esophageal reflux Fibromyalgia Mylagia and myositis, unspecified Class 3 severe obesity due to excess calories with serious comorbidity and body mass index (BMI) of 45.0 to 49.9 in adult ([facility]) Encounter for long-term (current) use of medications Encounter for long-term (current) use of other medications Insulin resistance Dysmetabolic Syndrome X [facility] Diagnosis Orthostatic lightheadedness- Primary Dizziness and giddiness Transient loss of consciousness Syncope and collapse Disturbance of skin sensation Postural orthostatic tachycardia syndrome (POTS) [facility] Diagnosis Convulsions, unspecified convulsion type (HCC)- Primary [facility] Diagnosis Transient loss of consciousness Syncope and collapse [facility] Diagnosis Orthostatic lightheadedness- Primary Dizziness and giddiness [facility] Author Ioana Griffiths [facility] October 22, 2023 12:16am Note Date/Time October 21, 2023 11:38pm [facility] Medical Records Department [address] [place] [address] H&P Exam - Hospitalist 10/21/23 2334 MR#: [id number] Acct: [id number] Name: HECTOR LEON Rep #:[id number] : 1975 48 From: Ioana Griffiths MD PCP: Dr. Mike Mercado MD Status :ADM IN Location: ICU ICU04-1 HPI - General General Date of Admission: 10/21/23 Date of Service: 10/21/23 Chief Complaint: Chest pain, epigastric pain, onset facial droop/slurred speech while in the ED. HPI Narrative The patient is a 48 y/o F w/ PMHx: Morbid obesity, Fibromyalgia on chronic gabapentin who presents to the [facility] ED on 10/21/23 with onset of upper abdominal discomfort and chest discomfort starting at approximately 820 in the evening with chest discomfort described as a tightness with dyspnea associated with recent shingles however she reports completing recent treatments although she denies having been on any steroids with no reflux history and given not improving prompted eventual ED evaluation. She did report a history of VTE in her brother as well as a grandparent. In the ED while patient was undergoing her workup she had sudden onset of pronounced left facial droop and slurred speech with decreased sensation to the left side with NIH stroke score at that time 2 for persistent left facial droop and slight decrease sensation with stroke alert initiated. She notes the discomfort in her chest at its worst was 10 out of 10 in severity described as sharp stabbing and also pressure-like in sensation with associated dyspnea. She currently notes she has very mild discomfort more like pressure sensation in her lower midsternal region although with pressure and palpation she does have reproduction of the symptoms of note. Upon evaluation of left lateral side where she had a recent shingles outbreak itlooks completely resolved. Workup in the ED included T97.6, heart rate 84, BP initially 163/77, respiratory rate 18, 99% on room air with most recent repeat vitals T98.6, heart rate 94, BP 133/93, respiratory rate 13, 98% on room air, CBC with WBC 9.4, hemoglobin 13.5, platelet 288 without marked shift, coags withD-dimer 1.30, CMP with chloride 108, BUN/creatinine 20/0.95, glucose 109, hepatic profile not marked appearing, troponin 8, chest x-ray with no acute cardiopulmonary findings, CT brain with no acute intracranial findings, CTA headand neck noted to be normal, EKG was sinus rhythm with no acute evidence of ischemia. ED did have stroke alert on this patient and [facility] neurology wasinvolved with discussions as to whether not acute stroke versus stress related reaction with option to the patient for consideration of TNK with election to proceed with this. Most recent NIH stroke scale 0. In the ED patient administered tenecteplase as well as maintenance IV fluids. [facility] Medical History Fibromyalgia Morbid obesity Home Medications gabapentin 300 mg capsule 300 mg PO Q12H 10/21/23 [History Last Taken Unknown] Allergy/AdvReac Type Severity Reaction Status Date / Time egg Allergy Other Verified 09/27/23 20:47 prednisone AdvReac Nausea/Vom/ Verified 09/27/23 20:47 Diarrhea Family History (Updated 10/22/23 @ 00:[address] Ioana Griffiths MD) Mother Rheumatoid arthritis Hypertension Father Hypertension Grandmother VTE (venous thromboembolism) Maternal grandmother. Brother VTE (venous thromboembolism) CVA (cerebral vascular accident) Hypertension Surgical History (Updated 10/22/23 @ 00:[address] Ioana Griffiths MD) H/O tubal ligation H/O: hysterectomy S/P tonsillectomy and adenoidectomy Social History (Updated 10/21/23 @ 23:[address] Ioana Griffiths MD) household members: spouse Smoking Status: Never smoker alcohol intake: never substance use type: does not use ROS ROS Narrative Admission Review of Systems: CONSTITUTIONAL: No weight loss, fever, chills, + weakness or fatigue. HEENT: Eyes: No visual loss, blurred vision, double vision or yellow sclerae. Ears, Nose, Throat: No hearing loss, sneezing, congestion, runny nose or sore throat. SKIN: No rash or itching, lesions, wounds except for + resolved/healed left lateral flank status post recent shingles outbreak, all lesions healed. CARDIOVASCULAR: + chest pain, chest pressure or chest discomfort. No palpitations, edema, orthopnea, syncopal events. RESPIRATORY: + shortness of breath. No cough or sputum, wheezing, hemoptysis. GASTROINTESTINAL: No anorexia, nausea, vomiting or diarrhea, abdominal pain, melena, BRBPR. GENITOURINARY: No dysuria, frequency, urgency or retention. NEUROLOGICAL: + Transient facial droop, altered speech, sensation alteration. No headache, dizziness, syncope, change in bowel or bladder control, seizure. MUSCULOSKELETAL: + muscle, back pain, joint pain or stiffness. HEMATOLOGIC: No anemia, bleeding or bruising. LYMPHATICS: No enlarged nodes. No history of splenectomy. PSYCHIATRIC: No history of depression or anxiety. ENDOCRINOLOGIC: No reports of sweating, cold or heat intolerance. No polyuria orpolydipsia. ALLERGIES: No history of asthma, hives, eczema or rhinitis. Vital Signs Vital Signs Vital Signs: 10/21/23 21:00 10/21/23 21:00 10/21/23 21:51 Temperature 97.6 F L Temperature Source Temporal Pulse Rate 84 Respiratory Rate 18 Respiratory Effort Short of Breath Blood Pressure 163/77 H Blood Pressure Mean 105 Blood Pressure Source Blood Pressure Position Blood Pressure Location Pulse Ox 99 Oxygen Delivery Method Room Air Room Air 10/21/23 21:52 10/21/23 22:25 10/21/23 22:29 Temperature Temperature Source Pulse Rate 87 Respiratory Rate 17 Respiratory Effort Blood Pressure 146/82 H 118/82 H Blood Pressure Mean 103 Blood Pressure Source Blood Pressure Position Blood Pressure Location Pulse Ox 99 Oxygen Delivery Method Room Air Room Air 10/21/23 22:29 10/21/23 22:30 10/21/23 22:45 Temperature 98 F 97.8 F 97.7 F L Temperature Source Oral Oral Oral Pulse Rate 89 96 87 Respiratory Rate 30 H 12 12 Respiratory Effort Blood Pressure 127/90 H 127/90 H 137/88 H Blood Pressure Mean 102 102 104 Blood Pressure Source Monitor Monitor Monitor Blood Pressure Position Semi-Fowlers Semi-Fowlers Semi-Fowlers Blood Pressure Location Right Forearm Right Forearm Right Forearm Pulse Ox 100 99 98 Oxygen Delivery Method Room Air Room Air Room Air 10/21/23 23:00 10/21/23 23:15 Temperature 97.8 F 98.6 F Temperature Source Oral Oral Pulse Rate 89 94 Respiratory Rate 12 13 Respiratory Effort Blood Pressure 143/100 H 133/93 H Blood Pressure Mean 114 106 Blood Pressure Source Monitor Monitor Blood Pressure Position Semi-Fowlers Semi-Fowlers Blood Pressure Location Right Forearm Right Forearm Pulse Ox 94 98 Oxygen Delivery Method Room Air Room Air Weight Weight: 268 lb 8.368 oz Body Mass Index (BMI) 50.7 Physical Exam Narrative Physical Examination: General: Awake, alert, oriented x 3 and cooperative, seated upright in the ED bed in no apparent distress does note she had significant anxiety with onset of the neurological symptoms but is improved currently. Skin: Normal color, normal turgor, no icterus, no cyanosis, resolved left flank shingles lesions, healed over. HEENT: AT/NC, EOMI, PERRLA, mildly dry MM, no carotid bruits or JVD noted; however thickened neck makes evaluation difficult. Lungs: CTA bilaterally, moderate effort, mild decrease BL bases, no rales, ronchi or wheezing. Heart: Regular rate and rhythm; no gallop, rub audible, reproducible discomfort with palpation of the mid and lower sternal region of note. Abdomen: Soft, morbidly obese, NTTP, ND, mildly hyperactive BS, no appreciated HSM however habitus makes evaluation difficult. Extremities: No cyanosis, no clubbing, mild peripheral not markedly pitting ankle edema. Neurological: Patient awake, alert, oriented as noted, cognitive function intact; pupils equally reactive to light and accommodation, cranial nerves grossly normal, moving all 4 extremities, no focal deficits, strength preserved,finger-nose and [id number] appropriate, sensation intact, speech appropriate, no residual neurological deficits noted. Psychiatric: Affect appears fatigued otherwise normal, no acute evidence of depressive or anxiety feelings. Results Lab / Micro Data 10/21/23 21:49 10/21/23 21:49 Labs: Laboratory Results - last 24 hr 10/21/23 21:44: POC Glucose 112 H 10/21/23 21:49: WBC 9.4, RBC 4.55, Hgb 13.5, Hct 40.3, MCV 88.6, MCH 29.7, MCHC 33.5, RDW Std Deviation 42.0, RDW Coeff of Rebecca 12.8, Plt Count 288, MPV 9.8, Immature Gran % (Auto) 0.500, Neut % (Auto) 50.6, Lymph % (Auto) 39.2, Ren[place] % (Auto) 7.8, Eos % (Auto) 1.5, Baso % (Auto) 0.4, Absolute Neuts (auto) 4.8, Absolute Lymphs (auto) 3.70, Nucleated RBC % 0, Platelet Estimate ADEQUATE, Plt Morphology Comment LARGE, RBC Morphology N CHROM, Anisocytosis RARE, D-Dimer Quant (PE/DVT) 1.30 H*, Sodium 140, Potassium 3.8, Chloride 108 H, Carbon Dioxide 25.0, Anion Gap 7, BUN 20 H, Creatinine 0.95, Estim Creat Clear Calc 90.41, Est GFR (MDRD) Af Amer 81, Est GFR (MDRD) Non-Af 67, BUN/Creatinine Ratio21.0 H, Glucose 109 H, Calcium 9.2, Total Bilirubin 0.20, Direct Bilirubin 0.10,AST 36, ALT 47, Alkaline Phosphatase 101, Troponin I High Sens 8, Total Protein 7.1, Albumin 3.2, Globulin 3.9, Lipase 35 Imaging Radiology Impression Chest X-Ray 10/21/23 21:39 IMPRESSION: Normal x-ray examination of the chest. Electronically Signed: Christiano Ordonez MD at 22:09 EST , Brain CT 10/21/23 21:45 IMPRESSION: Negative Brain CT without contrast. N.B. : The above Results were Read Back by Christiano Ordonez MD to Nadia Yao MD, and understanding confirmed on 10/21/2023 22:02:21 (ET). Electronically Signed: Christiano Ordonez MD at 22:02 EST , ADDENDUM: 10/21/232208 IMPRESSION: Negative Brain CT without contrast. N.B. : The above Results were Read Back by Christiano Ordonez MD to Nadia Yao MD, and understanding confirmed on 10/21/2023 22:02:21 (ET). Electronically Signed: Christiano Ordonez MD at 22:02 EST , Head/Neck CTA 10/21/23 21:46 IMPRESSION: Normal CTA Head and neck with contrast. Electronically Signed: Christiano Ordonez MD at 22:15 EST , ADDENDUM: 10/21/232231 IMPRESSION: Normal CTA Head and neck with contrast. N.B. : Dr. Nadia Yao MD, confirmed on 10/21/2023 22:25:21 (ET) that the referring physician received the results and does not require a verbal communication. Electronically Signed: Christiano Ordonez MD at 22:15 EST , Assessment & Plan Assessment/Plan (1) Stroke: (2) Chest pain: PLAN: Plan The patient is a 48 y/o F w/ PMHx: Morbid obesity, Fibromyalgia on chronic gabapentin who presents to the [facility] ED on 10/21/23 with onset of upper abdominal discomfort and chest discomfort starting at approximately 820 in the evening with chest discomfort described as a tightness with no dyspnea associated with recent shingles however she reports completing recent treatments although she denies having been on any steroids with no reflux history and given not improving prompted eventual ED evaluation. She did report a history of VTE in her brother as well as a grandparent. #1. Transient left-sided facial droop, slurred speech eventually resolved concerning for CVA status post TNK administration: Patient was initiated on TNK in the ED. Will admit to ICU per protocol with rn oncology research consultation per protocol, will obtain repeat CT head versus MRI in 24 hours depending on which is able to be performed at that jose however if only CT head is able to be performed then will need follow- up MRI brain, will obtain ECHO, PT/OT/Speech/Nutrition evaluation per protocol. Will allow permissive HTN, onceassured repeat CT head versus MRI with no acute intracranial bleeding will initiate aspirin therapy, will maintain in the interim on statin w/ AM FLP, fallprecautions. Mag, TSH, FLP, HgbA1c requested. Maintain on fall and aspiration precautions. Continue neurology consultation. #2. Chest Pain with elevated D-dimer of unclear significance with VTE notable family history: EKG in ED sinus rhythm with no acute evidence of ischemia, CXR w/ no acute cardiopulmonary findings, initial trop 8. Will place on a monitored bed to assure no acute myocardial infarction with serial cardiac enzymes and EKGs. Given CTA head already performed with contrast patient cannot at this time have repeat CTA chest. Will request duplex ultrasound in the a.m. however at the 24-hour jose may reconsider CTPA to further assess. Given recent TNK we will continue to closely monitor as patient cannot be anticoagulated at this point. Magnesium level requested. FLP in AM with statin initiated as noted #1. Did request that patient talk to her brother and find out if potentially he hada hypercoagulable panel done and if this was to relay the results to the hospitalist physician. #3. Elevated BP without hypertensive diagnosis: Given acute presentation we will continue permissive hypertension with as needed agents per stroke protocol. #4. Morbid Obesity: Weight loss and lifestyle changes encouraged, nutrition consulted. #5. Fibromyalgia: Encourage continued outpatient evaluation. #6. Recent left lateral flank shingles outbreak, resolved: We will continue patient gabapentin regimen. #7. Prophylaxis: SCDs. #8. CODE STATUS: Full code. Charges/Coding Visit Charges Inpatient E&M: 43424 Init Hosp L3 10/22/23 0016 <Electronically signed by Ioana Griffiths MD> Cosigner Signature (if applicable): CC: Dr. Ioana Griffiths MD; Dr. Mike Mercado MD~ Signed [facility] Work Phone: History and physical note Author Abiodun He [facility] December 13, 2023 12:10am Note Date/Time December 12, 2023 11: 59pm [facility] Medical Records Department [address] [place] [id number] History & Physical Exam 12/12/23 2117 MR#: [id number] Acct: [id number] Name: HECTOR LEON Rep #:[id number] : 1975 48 From: Abiodun Hernandez PCP: Dr. Mike Mercado MD Status :REG ER Location: ED HPI - General General Date of Admission: 12/12/23 Chief Complaint: Chest pain HPI Narrative HECTOR LEON, is a 48 F who presents to [facility] with her with complaints of chest pain that began approximately at 7 PM this evening after taking dinner at approximately 5 PM. She shares that her chest pain simply went calm down and then became associated also with some back painwhich presented more in waves. She does acknowledge some associated nausea and belching with chest pain. She reports that it is presently well-controlled on her current medications. She shares that she deals with chronic constipation but over the last several weeks has noticed that her stools have been more yellow. Patient's ER workup is notable for CMP with mildly elevated alkaline phosphataseat 131. CBC shows mildly elevated WBC 11.2. Troponin is obtained was not elevated. Right upper quadrant ultrasound was performed and found evidence of cholelithiasis with normal gallbladder wall thickness, no pericholecystic fluid,normal CBD diameter, but positive sonographic Toledo sign concerning for cholecystitis. Patient reports an ongoing workup for complaints of this chest pain as well as some facial drooping. She notes at the end of August she was diagnosed with shingles and this infection cause pain under her left breast going into her leftmid back. Then the following month she presented with severe chest pain and facial droop on the left side. The findings were concerning enough that she wasministered tenecteplase and observed in the ICU. She shares she underwent a battery of testing including MRI and CT imaging that all returned negative. Shewas instructed to follow-up with her PCP, cardiology, and neurology out of this. Unfortunately, however, she presented in October with similar complaints of facial droop and chest pain. She was advised at that time that it been to closesince her last tenecteplase administration to readminister. Instead she was observed and thereafter underwent the outpatient evaluations by cardiology and neurology. She shares that she is presently on a 30-day event monitor for cardiology but to date has had a negative stress test and was advised that she no longer needed to take the recommended aspirin and Lipitor. She shares she also followed up with stroke neurology and they have excluded a stroke event butremain concerned for seizure activity. Therefore, it is a recommendation to follow-up with general neurology. Patient has a diagnosis of morbid obesity and she shares that she has tried to lose weight in the last year, however, this has been largely unsuccessful. She reports a 25 pound weight loss but approximately 10 pound weight regain. Patient's past surgical history includes tubal ligation and hysterectomy [facility] Medical History Fibromyalgia Morbid obesity Home Medications aspirin 81 mg chewable tablet 1 tab PO DAILY 11/01/23 [History Last Taken Unknown] atorvastatin 80 mg tablet 80 mg PO QHS 11/01/23 [History Last Taken Unknown] lansoprazole 30 mg capsule,delayed release 30 mg PO DAILY 12/12/23 [History Last Taken Unknown] Allergy/AdvReac Type Severity Reaction Status Date / Time egg Allergy Other Verified 12/12/23 20:24 prednisone AdvReac Nausea/Vom/ Verified 12/12/23 20:24 Diarrhea Family History Mother Rheumatoid arthritis Hypertension Father Hypertension Grandmother VTE (venous thromboembolism) Maternal grandmother. Brother VTE (venous thromboembolism) CVA (cerebral vascular accident) Hypertension Surgical History H/O tubal ligation H/O: hysterectomy S/P tonsillectomy and adenoidectomy Social History household members: spouse Smoking Status: Never smoker alcohol intake: never substance use type: does not use Vital Signs Vital Signs Vital Signs: 12/12/23 20:18 12/12/23 20:18 12/12/23 20:22 Temperature 98 F 98 F 98 F Temperature Source Temporal Temporal Temporal Pulse Rate 94 88 88 Respiratory Rate 19 H 19 H 16 Blood Pressure 149/96 H 149/96 H 149/96 H Blood Pressure Mean 113 113 113 Pulse Ox 100 100 100 Oxygen Delivery Method Room Air Room Air Room Air 12/12/23 21:22 12/12/23 22:00 12/12/23 23:00 Temperature 98.2 F 98.7 F 97.5 F L Temperature Source Oral Oral Temporal Pulse Rate 82 80 84 Respiratory Rate 16 16 16 Blood Pressure 151/83 H 162/102 H 165/88 H Blood Pressure Mean 105 122 113 Pulse Ox 98 97 100 Oxygen Delivery Method Room Air Room Air Room Air Weight Weight: 257 lb Body Mass Index (BMI) 48.5 Physical Exam Const alert and well nourished Constitutional Narrative: Anxious and appears frustrated/distraught Eyes Eyes Narrative: Normal sclera Resp normal respiratory effort GI GI Narrative: Morbidly obese, no scars, nondistended, soft, focally tender in the right upper quadrant with positive Toledo sign Results Lab / Micro Data 12/12/23 20:47 12/12/23 20:47 Labs: Laboratory Results - last 24 hr 12/12/23 20:47: WBC 11.2 H, RBC 4.93, Hgb 14.4, Hct 42.7, MCV 86.6, MCH 29.2, MCHC 33.7, RDW Std Deviation 39.2, RDW Coeff of Rebecca 12.4, Plt Count 313, MPV 9.6, Immature Gran % (Auto) 0.400, Neut % (Auto) 36.2 L, Lymph % (Auto) 54.4 H, Ren[place] % (Auto) 7.0, Eos % (Auto) 1.6, Baso % (Auto) 0.4, Absolute Neuts (auto) 4.1, Absolute Lymphs (auto) 6.10 H, Nucleated RBC % 0, Differential Comment SEE COMMENT, Platelet Estimate ADEQUATE, RBC Morphology NORM C+C, Anisocytosis RARE,Sodium 140, Potassium 3.4 L, Chloride 106, Carbon Dioxide 28.0, Anion Gap 6, BUN13, Creatinine 0.76, Estim Creat Clear Calc 109.96, Est GFR (MDRD) Af Amer 106, Est GFR (MDRD) Non-Af 87, BUN/Creatinine Ratio 17.2, Glucose 111 H, Calcium 8.9,Total Bilirubin 0.30, Direct Bilirubin 0.13, AST 37, ALT 48, Alkaline Phosphatase 131 H, Troponin I High Sens < 3 L, Total Protein 7.6, Albumin 3.5, Globulin 4.1 12/12/23 21:02: Urine Color Yellow, Urine Clarity Clear, Urine pH 7.0, Ur Specific Bradley 1.005, Urine Protein Negative, Urine Glucose (UA) Normal, UrineKetones Negative, Urine Occult Blood Negative, Urine Nitrite Negative, Urine Bilirubin Negative, Urine Urobilinogen Normal, Ur Leukocyte Esterase Negative, Urine RBC 0 SEEN, Urine WBC 0 SEEN, Ur Squamous Epith Cells 0-5 SEEN, Urine Bacteria 0 SEEN, Urine Mucus 0 SEEN Imaging Radiology Impression Gallbladder Ultrasound 12/12/23 21:28 IMPRESSION: Cholelithiasis. Positive sonographic Toleod sign may be consistent with acute cholecystitis with no other definitive ultrasound findings. Fatty infiltration liver. Electronically Signed: Blanca Castro MD at 22:19 EDT Reading Location ID and State: [facility] / [place] Tel , Service support , Assessment & Plan Assessment/Plan (1) Cholecystitis: PLAN: Patient is a 48-year-old female with a number of recent complaints who presents with signs and symptoms largely consistent with a diagnosis of cholecystitis. Her pain is primarily postprandial as per history and her exam is consistent with this diagnosis with a positive Toledo sign. Cholelithiasis is confirmed on ultrasound. However, I am unable to confirm for Mrs. Leon thather back pain is definitely connected to this diagnosis. Further, it is unclearto me how her prior presentations for chest pain and facial droop fit into this present presentation. Based on her reports of multiple negative cardiac and neurologic workups it seems reasonable and safe to proceed for cholecystectomy and hopefully addressing her right upper quadrant abdominal discomfort, but all the while acknowledging that there may and likely is more to her clinical picture than this cholecystitis. I have tried to take time to outline the expectations for this procedure as well as recommended that we on board the hospitalist service for additional evaluation before proceeding to the OR. Patient and her expressed appreciation for this information. Patient will be admitted with IV antibiotic therapy and n.p.o. status. Will tentativelyplan to proceed to the OR tomorrow for laparoscopic cholecystectomy with intraoperative cholangiogram. CBC and CMP we ordered for the a.m. (2) Chest pain in adult: PLAN: Patient with multiple presentations for chest pain and extensive cardiac workup that is reportedly all been within normal limits. Patient is morbidly obese and has certain risk factors for cardiovascular disease. Appreciate assistance of hospitalist service to help appropriately read stratify patient ahead of the OR. Charges/Coding Visit Charges Inpatient E&M: 61632 Init Hosp L2 12/13/23 0010 <Electronically signed by Abiodun He MD> Cosigner Signature (if applicable): CC: Dr. Mike Mercado MD; Dr. Abiodun He MD~ Signed [facility] Work Phone: Hospital Discharge instructions No data available for this section [facility] Progress note No data available for this section [facility] (narrative)* Diagnostic Procedure Only (Routine) - Pending Review Specialty Diagnoses / Procedures Referred By Jeovannyac t Referred To Contact [facility] Diagnoses Encounter for screening mammogram for breast cancer Procedures MONY SCREENING SCREENING MAMMOGRAPHY BI 2-VIEW BREAST INC Manda Dumas MD [address] [place] [address] Br Imaging [address] [place] [address] Referral ID Status Reason Start Date Expiration Date Visits Requested Visits Authorized [id number] Pending Review Auto-Generat ed Referral 09/29/2022 10/29/2023 1 1 [facility] for referral (narrative)* Diagnostic Procedure Only (Routine) - Pending Review Specialty Diagnoses / Procedures Referred By Court t Referred To Contact BR IMAGING Diagnoses Encounter for screening mammogram for breast cancer Procedures MONY SCREENING SCREENING MAMMOGRAPHY BI 2-VIEW BREAST INC Manda Dumas MD [address] [place] [address] Br Imaging [address] [place] [address] Referral ID Status Reason Start Date Expiration Date Visits Requested Visits Authorized [id number] Pending Review Auto-Generat ed Referral 09/07/2023 10/06/2024 1 1 [facility] for referral (narrative)* Outpatient Procedure (Urgent) - Closed Specialty Diagnoses / Procedures Referred By Court t Referred To Contact [facility] Diagnoses Chest pain, unspecified type Procedures EXERCISE STRESS ECG (WITHOUT IMAGING) [place] [address] [place] [address] [facility] [address] [place] [address] Referral ID Status Reason Start Date Expiration Date V isits Requested Visits Authorized [id number] Closed Auto-Generate d Referral 11/04/2023 11/03/2024 1 1 [facility] for referral (narrative)* Diagnostic Procedure Only (Routine) - New Request Specialty Diagnoses / Procedures Referred By Court goodwin Referred To Contact [facility] Diagnoses Encounter for screening mammogram for breast cancer Procedures MONY SCREENING W ESE SCREENING DIGITAL BREAST TOMOSYNTHESIS BI SCREENING MAMMOGRAPHY BI 2-VIEW BREAST INC CAD Manda Mercado MD [address] [place] [address] Br Imaging [address] [place], [place] [address] [address] Referral ID Status Reason Start Date Expiration Date Visits Requested Visits Authorized [id number] New Request Auto-Generat ed Referral 09/14/2025 1 1 [facility] for visit Narrative* Outpatient Procedure (Urgent) - Closed Specialty Diagnoses / Procedures Referred By Court goodwin Referred To Contact HEART [facility] [place] Diagnoses Chest pain, unspecified type Procedures EXERCISE STRESS ECG (WITHOUT IMAGING) Manda Mercado MD [address] [place] [address] [facility] [place] [address] [place] [address] Referral ID Status Reason Start Date Expiration Date V isits Requested Visits Authorized [id number] Closed Auto-Generate d Referral 11/04/2023 11/03/2024 1 1 [facility] for visit Narrative* Outpatient Procedure (Routine) - Closed Specialty Diagnoses / Procedures Referred By Court goodwin Referred To Contact [facility]OLOGICAL [place] Diagnoses Transient neurological symptoms Procedures EPIL EEG ROUTINE ELECTROENCEPHALOGRAM REC COMA/SLEEP ONLY Rianna Shea MD [address] [address] Referral ID Status Reason Start Date Expiration Date V isits Requested Visits Authorized [id number] Closed Auto-Generate d Referral 12/02/2023 12/01/2024 1 1 [facility] Concerns Infection Onset Date Last Indicated Resolved Time COVID-19 Rule-Out 09/01/2022 09/01/2022 09/02/2022 8:41 AM EST Chief Complaint and Reason for Visit Chief Complaint rash Chief Complaint rash CVA S/P TNK, CP Reason for Visit Chest pain Stroke Chief Complaint rash CVA S/P TNK, CP CVA S/P TNK, CP CVA S/P TNK, CP Reason for Visit Chest pain Stroke Chief Complaint rash CVA S/P TNK, CP CVA S/P TNK, CP CVA S/P TNK, CP CHEST PAIN ACUTE CHOLECYSTITIS CP Reason for Visit Chest pain Chest pain in adult Cholecystitis Chief Complaint rash CVA S/P TNK, CP CVA S/P TNK, CP CVA S/P TNK, CP CHEST PAIN ACUTE CHOLECYSTITIS CP ACUTE CHOLECYSTITIS ACUTE CHOLECYSTITIS ACUTE CHOLECYSTITIS Reason for Visit Chest pain Chest pain in adult Cholecystitis Chief Complaint rash CVA S/P TNK, CP CVA S/P TNK, CP CVA S/P TNK, CP CHEST PAIN ACUTE CHOLECYSTITIS CP ACUTE CHOLECYSTITIS ACUTE CHOLECYSTITIS ACUTE CHOLECYSTITIS ACUTE CHOLECYSTITIS 12/12 CHOLESYSECTOMY - MB Reason for Visit Chest pain Chest pain in adult Cholecystitis Dysuria Fatty liver determined by biopsy Morbid obesity S/P cholecystectomy Advance Directives No Advanced Directives Records Found Advance Directive Response Recorded Date/ Time Living Will No September 27 8:48pm Power of Farmworker Fruit No September 27, 2023 8:48pm Advance Directive Response Recorded Date/ Time Living Will No October 21 9:00pm Power of Farmworker Fruit No October 21, 2023 9:00pm Advance Directive Response Recorded Date/ Time Living Will No October 22 1:11am Power of Farmworker [employer] No October 22, 2023 1:11am Advance Directive Response Recorded Date/ Time Living Will No December 12, 2023 9:26pm Power of Farmworker [employer] No December 11 9:26pm Advance Directive Response Recorded Date/ Time Living Will No December 13, 2023 1:11am Power of Farmworker [employer] No December 12 1:11am Advance Directive Response Recorded Date/ Time Living Will No December 15, 2023 12:38pm Power of Farmworker [employer] No December 14 12:38pm Family History No Family History Records Found Relationship Condition Age at Onset Recorded Date/T jaylen mother Rheumatoid arthritis Unknown Hypertension Unknown father Hypertension Unknown grandmother Venous thromboembolism (VTE) Unknown brother Venous thromboembolism (VTE) Unknown Cerebrovascular accident (CVA) Unknown Reason for Referral Specialty Diagnoses / Procedures Referred By Contac t Referred To Contact Cardiology Diagnoses Chest pain, unspecified type Procedures CONSULT TO CARDIOLOGY OFFICE/OUTPATIENT [facility] 60 MINUTES Manda Mercado MD [facility] [place] [address] Referral ID Status Reason Start Date Expiration Date Visits Requested Visits Authorized [id number] Authorized PCP Requested Referral 11/04/2023 11/03/2024 1 1 Specialty Diagnoses / Procedures Referred By Contac t Referred To Contact MR IMAGING Diagnoses Transient cerebral ischemia, unspecified type Procedures MRA CAROTID WO IVCON MRA, NECK; W/O CONTRAST Manda Mercado MD [address] [place] [address] Mr Imaging [facility] Referral ID Status Reason Start Date Expiration Date Visits Requested Visits Authorized [id number] Authorized Auto-Generat ed Referral 11/04/2023 12/03/2024 1 1 Specialty Diagnoses / Procedures Referred By Contac t Referred To Contact MR IMAGING Diagnoses Transient cerebral ischemia, unspecified type Procedures MRA BRAIN WO IVCON MRA, HEAD W/O CONTRAST Manda Mercado MD [address] [place] [address] Mr Imaging [facility] Referral ID Status Reason Start Date Expiration Date Visits Requested Visits Authorized [id number] Authorized Auto-Generat ed Referral 11/04/2023 12/03/2024 1 1 Specialty Diagnoses / Procedures Referred By Contac t Referred To Contact [facility] Diagnoses Chest pain, unspecified type Procedures EXERCISE STRESS ECG (WITHOUT IMAGING) Manda Mercado MD [address] [place] [address] [facility] [address] [place] [address] Referral ID Status Reason Start Date Expiration Date Visits Requested Visits Authorized [id number] Authorized Auto-Generat ed Referral 11/04/2023 11/03/2024 1 1 Specialty Diagnoses / Procedures Referred By Contac t Referred To Contact Neurology Diagnoses Stroke-like symptoms Procedures CONSULT TO NEUROLOGY OFFICE/OUTPATIENT [facility] 60 MINUTES Manda Mercado MD [address] [place] [address] Referral ID Status Reason Start Date Expiration Date Visits Requested Visits Authorized [id number] Authorized PCP Requested Referral 11/04/2023 11/03/2024 1 1 Referral ID Status Reason Start Date Expiration Date V isits Requested Visits Authorized [id number] Closed Auto-Generate d Referral 11/04/2023 12/03/2024 1 1 Referral ID Status Reason Start Date Expiration Date V isits Requested Visits Authorized [id number] Closed Auto-Generate d Referral 11/04/2023 12/03/2024 1 1 Specialty Diagnoses / Procedures Referred By Contac t Referred To Contact Diagnoses 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 Procedures CONSULT TO MEDICAL GENETICS - GENERAL OFFICE/OUTPATIENT [facility] 60 MINUTES MEDICAL GENETICS COUNSELING EACH 30 [place] [address] [place] [address] [address] Referral ID Status Reason Start Date Expiration Date Visits Requested Visits Authorized [id number] Pending Review PCP Requested Referral Auto-Generate d Referral 02/02/2024 02/01/2025 1 1 Specialty Diagnoses / Procedures Referred By Contac t Referred To Contact MR IMAGING Diagnoses Pulsatile tinnitus, unspecified ear Procedures MRV BRAIN WO/W IVCON MRA; HEAD W & [place] [address] [place] [address] [place] [address] Referral ID Status Reason Start Date Expiration Date Visits Requested Visits Authorized [id number] Pending Review Auto-Generat ed Referral 02/02/2024 03/03/2025 1 1 Specialty Diagnoses / Procedures Referred By Contac t Referred To Contact Diagnoses Fatty liver Gastroesophageal reflux disease without esophagitis Mixed hyperlipidemia Class 3 severe obesity due to excess calories with serious comorbidity and body mass index (BMI) of 45.0 to 49.9 in adult ([facility]) Procedures CONSULT BARIATRIC[facility] OFFICE/OUTPATIENT [facility] 60 MINUTES Fallon Larson MD [address] [place] [address] Referral ID Status Reason Start Date Expiration Date Visits Requested Visits Authorized [id number] Authorized PCP Requested Referral 04/10/2024 04/10/2025 1 1 Specialty Diagnoses / Procedures Referred By Contac t Referred To Contact Diagnoses Class 3 severe obesity due to excess calories with serious comorbidity and body mass index (BMI) of 45.0 to 49.9 in adult ([facility]) Fallon Larson MD [address] [place] [address] Referral ID Status Reason Start Date Expiration Date Visits Re quested Visits Authorized [id number] Closed 04/18/2024 06/17/2024 1 1 Specialty Diagnoses / Procedures Referred By Contac t Referred To Contact Neurology Diagnoses Transient neurological symptoms Procedures CONSULT TO NEUROLOGY OFFICE/OUTPATIENT [facility] 60 MINUTES Rianna Shea MD [address] [address] Referral ID Status Reason Start Date Expiration Date Visits Requested Visits Authorized [id number] Authorized PCP Requested Referral 12/02/2023 12/01/2024 1 1 Specialty Diagnoses / Procedures Referred By Contac t Referred To Contact [facility] Diagnoses Transient neurological symptoms Procedures EPIL EEG ROUTINE ELECTROENCEPHALOGRAM REC COMA/SLEEP ONLY Rianna Shea MD [address] [address] Neurological [place] [address] [place] [address] Referral ID Status Reason Start Date Expiration Date Visits Requested Visits Authorized [id number] Authorized Auto-Generat ed Referral 12/02/2023 12/01/2024 1 1 Specialty Diagnoses / Procedures Referred By Contac t Referred To Contact [facility] Diagnoses Stroke-like symptoms Procedures EPIL EEG ROUTINE ELECTROENCEPHALOGRAM REC COMA/SLEEP ONLY Rianna Shea MD [address] [place] [address] [facility] [place] [address] [place] [id number] Referral ID Status Reason Start Date Expiration Date Visits Requested Visits Authorized [id number] Pending Review Auto-Generat ed Referral 12/02/2023 12/01/2024 1 1 Summary Purpose Additional Source Comments Source Comments (unrecognize d section and content) In the event this informatio n is protected by the Federal Confidentiality of Alcohol and Drug Abuse Patient Records regulations: The Federal rules restrict any use of the information to criminally investigate or prosecute any alcohol or drug abuse patient.[facility] the event this information is protected by the Federal Confidentiality of Alcohol and Drug Abuse Patient Records regulations: The Federal rules restrict any use of the information to criminally investigate or prosecute any alcohol or drug abuse patient.[facility] HospitalIn the event this information is protected by the Federal Confidentiality of Alcohol and Drug Abuse Patient Records regulations: The Federal rules restrict any use of the information to criminally investigate or prosecute any alcohol or drug abuse patient.[facility] HospitalIn the event this information is protected by the Federal Confidentiality of Alcohol and Drug Abuse Patient Records regulations: The Federal rules restrict any use of the information to criminally investigate or prosecute any alcohol or drug abuse patient.[facility] HospitalIn the event this information is protected by the Federal Confidentiality of Alcohol and Drug Abuse Patient Records regulations: The Federal rules restrict any use of the information to criminally investigate or prosecute any alcohol or drug abuse patient.[facility] HospitalIn the event this information is protected by the Federal Confidentiality of Alcohol and Drug Abuse Patient Records regulations: The Federal rules restrict any use of the information to criminally investigate or prosecute any alcohol or drug abuse patient.[facility] HospitalIn the event this information is protected by the Federal Confidentiality of Alcohol and Drug Abuse Patient Records regulations: The Federal rules restrict any use of the information to criminally investigate or prosecute any alcohol or drug abuse patient.[facility] HospitalIn the event this information is protected by the Federal Confidentiality of Alcohol and Drug Abuse Patient Records regulations: The Federal rules restrict any use of the information to criminally investigate or prosecute any alcohol or drug abuse patient.[facility] HospitalIn the event this information is protected by the Federal Confidentiality of Alcohol and Drug Abuse Patient Records regulations: The Federal rules restrict any use of the information to criminally investigate or prosecute any alcohol or drug abuse patient.[facility] HospitalIn the event this information is protected by the Federal Confidentiality of Alcohol and Drug Abuse Patient Records regulations: The Federal rules restrict any use of the information to criminally investigate or prosecute any alcohol or drug abuse patient.[facility] HospitalIn the event this information is protected by the Federal Confidentiality of Alcohol and Drug Abuse Patient Records regulations: The Federal rules restrict any use of the information to criminally investigate or prosecute any alcohol or drug abuse patient.[facility] HospitalIn the event this information is protected by the Federal Confidentiality of Alcohol and Drug Abuse Patient Records regulations: The Federal rules restrict any use of the information to criminally investigate or prosecute any alcohol or drug abuse patient.[facility] HospitalIn the event this information is protected by the Federal Confidentiality of Alcohol and Drug Abuse Patient Records regulations: The Federal rules restrict any use of the information to criminally investigate or prosecute any alcohol or drug abuse patient.[facility] HospitalIn the event this information is protected by the Federal Confidentiality of Alcohol and Drug Abuse Patient Records regulations: The Federal rules restrict any use of the information to criminally investigate or prosecute any alcohol or drug abuse patient.[facility] HospitalIn the event this information is protected by the Federal Confidentiality of Alcohol and Drug Abuse Patient Records regulations: The Federal rules restrict any use of the information to criminally investigate or prosecute any alcohol or drug abuse patient.[facility] HospitalIn the event this information is protected by the Federal Confidentiality of Alcohol and Drug Abuse Patient Records regulations: The Federal rules restrict any use of the information to criminally investigate or prosecute any alcohol or drug abuse patient.[facility] HospitalIn the event this information is protected by the Federal Confidentiality of Alcohol and Drug Abuse Patient Records regulations: The Federal rules restrict any use of the information to criminally investigate or prosecute any alcohol or drug abuse patient.[facility] HospitalIn the event this information is protected by the Federal Confidentiality of Alcohol and Drug Abuse Patient Records regulations: The Federal rules restrict any use of the information to criminally investigate or prosecute any alcohol or drug abuse patient.[facility] HospitalIn the event this information is protected by the Federal Confidentiality of Alcohol and Drug Abuse Patient Records regulations: The Federal rules restrict any use of the information to criminally investigate or prosecute any alcohol or drug abuse patient.[facility] HospitalIn the event this information is protected by the Federal Confidentiality of Alcohol and Drug Abuse Patient Records regulations: The Federal rules restrict any use of the information to criminally investigate or prosecute any alcohol or drug abuse patient.[facility] HospitalIn the event this information is protected by the Federal Confidentiality of Alcohol and Drug Abuse Patient Records regulations: The Federal rules restrict any use of the information to criminally investigate or prosecute any alcohol or drug abuse patient.[facility] HospitalIn the event this information is protected by the Federal Confidentiality of Alcohol and Drug Abuse Patient Records regulations: The Federal rules restrict any use of the information to criminally investigate or prosecute any alcohol or drug abuse patient.[facility] ClinicIn the event this information is protected by the Federal Confidentiality of Alcohol and Drug Abuse Patient Records regulations: The Federal rules restrict any use of the information to criminally investigate or prosecute any alcohol or drug abuse patient.[facility] HospitalIn the event this information is protected by the Federal Confidentiality of Alcohol and Drug Abuse Patient Records regulations: The Federal rules restrict any use of the information to criminally investigate or prosecute any alcohol or drug abuse patient.[facility] HospitalIn the event this information is protected by the Federal Confidentiality of Alcohol and Drug Abuse Patient Records regulations: The Federal rules restrict any use of the information to criminally investigate or prosecute any alcohol or drug abuse patient.[facility] HospitalIn the event this information is protected by the Federal Confidentiality of Alcohol and Drug Abuse Patient Records regulations: The Federal rules restrict any use of the information to criminally investigate or prosecute any alcohol or drug abuse patient.[facility] HospitalIn the event this information is protected by the Federal Confidentiality of Alcohol and Drug Abuse Patient Records regulations: The Federal rules restrict any use of the information to criminally investigate or prosecute any alcohol or drug abuse patient.[facility] HospitalIn the event this information is protected by the Federal Confidentiality of Alcohol and Drug Abuse Patient Records regulations: The Federal rules restrict any use of the information to criminally investigate or prosecute any alcohol or drug abuse patient.[facility] HospitalIn the event this information is protected by the Federal Confidentiality of Alcohol and Drug Abuse Patient Records regulations: The Federal rules restrict any use of the information to criminally investigate or prosecute any alcohol or drug abuse patient.[facility] HospitalIn the event this information is protected by the Federal Confidentiality of Alcohol and Drug Abuse Patient Records regulations: The Federal rules restrict any use of the information to criminally investigate or prosecute any alcohol or drug abuse patient.[facility] HospitalIn the event this information is protected by the Federal Confidentiality of Alcohol and Drug Abuse Patient Records regulations: The Federal rules restrict any use of the information to criminally investigate or prosecute any alcohol or drug abuse patient.[facility] HospitalIn the event this information is protected by the Federal Confidentiality of Alcohol and Drug Abuse Patient Records regulations: The Federal rules restrict any use of the information to criminally investigate or prosecute any alcohol or drug abuse patient.[facility] HospitalIn the event this information is protected by the Federal Confidentiality of Alcohol and Drug Abuse Patient Records regulations: The Federal rules restrict any use of the information to criminally investigate or prosecute any alcohol or drug abuse patient.[facility] HospitalIn the event this information is protected by the Federal Confidentiality of Alcohol and Drug Abuse Patient Records regulations: The Federal rules restrict any use of the information to criminally investigate or prosecute any alcohol or drug abuse patient.[facility] HospitalIn the event this information is protected by the Federal Confidentiality of Alcohol and Drug Abuse Patient Records regulations: The Federal rules restrict any use of the information to criminally investigate or prosecute any alcohol or drug abuse patient.[facility] HospitalIn the event this information is protected by the Federal Confidentiality of Alcohol and Drug Abuse Patient Records regulations: The Federal rules restrict any use of the information to criminally investigate or prosecute any alcohol or drug abuse patient.[facility] HospitalIn the event this information is protected by the Federal Confidentiality of Alcohol and Drug Abuse Patient Records regulations: The Federal rules restrict any use of the information to criminally investigate or prosecute any alcohol or drug abuse patient.[facility] HospitalIn the event this information is protected by the Federal Confidentiality of Alcohol and Drug Abuse Patient Records regulations: The Federal rules restrict any use of the information to criminally investigate or prosecute any alcohol or drug abuse patient.[facility] HospitalIn the event this information is protected by the Federal Confidentiality of Alcohol and Drug Abuse Patient Records regulations: The Federal rules restrict any use of the information to criminally investigate or prosecute any alcohol or drug abuse patient.[facility] HospitalIn the event this information is protected by the Federal Confidentiality of Alcohol and Drug Abuse Patient Records regulations: The Federal rules restrict any use of the information to criminally investigate or prosecute any alcohol or drug abuse patient.[facility] HospitalIn the event this information is protected by the Federal Confidentiality of Alcohol and Drug Abuse Patient Records regulations: The Federal rules restrict any use of the information to criminally investigate or prosecute any alcohol or drug abuse patient.[facility] HospitalIn the event this information is protected by the Federal Confidentiality of Alcohol and Drug Abuse Patient Records regulations: The Federal rules restrict any use of the information to criminally investigate or prosecute any alcohol or drug abuse patient.[facility] HospitalIn the event this information is protected by the Federal Confidentiality of Alcohol and Drug Abuse Patient Records regulations: The Federal rules restrict any use of the information to criminally investigate or prosecute any alcohol or drug abuse patient.[facility] HospitalIn the event this information is protected by the Federal Confidentiality of Alcohol and Drug Abuse Patient Records regulations: The Federal rules restrict any use of the information to criminally investigate or prosecute any alcohol or drug abuse patient.[facility] HospitalIn the event this information is protected by the Federal Confidentiality of Alcohol and Drug Abuse Patient Records regulations: The Federal rules restrict any use of the information to criminally investigate or prosecute any alcohol or drug abuse patient.[facility] HospitalIn the event this information is protected by the Federal Confidentiality of Alcohol and Drug Abuse Patient Records regulations: The Federal rules restrict any use of the information to criminally investigate or prosecute any alcohol or drug abuse patient.[facility] HospitalIn the event this information is protected by the Federal Confidentiality of Alcohol and Drug Abuse Patient Records regulations: The Federal rules restrict any use of the information to criminally investigate or prosecute any alcohol or drug abuse patient.[facility] HospitalIn the event this information is protected by the Federal Confidentiality of Alcohol and Drug Abuse Patient Records regulations: The Federal rules restrict any use of the information to criminally investigate or prosecute any alcohol or drug abuse patient.[facility] HospitalIn the event this information is protected by the Federal Confidentiality of Alcohol and Drug Abuse Patient Records regulations: The Federal rules restrict any use of the information to criminally investigate or prosecute any alcohol or drug abuse patient.[facility] HospitalIn the event this information is protected by the Federal Confidentiality of Alcohol and Drug Abuse Patient Records regulations: The Federal rules restrict any use of the information to criminally investigate or prosecute any alcohol or drug abuse patient.[facility] Reason for Visit (unrecogniz ed section and content) Reason Comments Cough Chest congestion, so re throat, body aches, chills x 1 day Reason Comments Results Reason Comments Physical Wanting to discuss w eight loss options. Reason Comments ER F/U Shingles- patient al so has left eye issue wondering if shingle related as shingle developed on Left side. Reason Comments Reminder Call Reason Comments Hospital F/U Patient was in ER an d Hosp recently. Reason Comments Patient Question Specialty Diagnoses / Procedures Referred By Court goodwin Referred To Contact MR IMAGING Diagnoses Transient cerebral ischemia, unspecified type Procedures MRA CAROTID WO IVCON MRA, NECK; W/O CONTRAST Manda Mercado MD [address] [place] [address] [place] [address] Referral ID Status Reason Start Date Expiration Date V isits Requested Visits Authorized [id number] Closed Auto-Generate d Referral 11/04/2023 12/03/2024 1 1 Reason Comments Physical Reason Comments Forms FMLA for patient's s [employer] for[employer]. Reason Comments Hospital F/U Reason Comments Ear Problem Right ear cracking a nd popping since yesterday Reason Comments New Patient Evaluation Transient neurolo gical symptoms Specialty Diagnoses / Procedures Referred By Court goodwin Referred To Contact Neurology Diagnoses Transient neurological symptoms Procedures CONSULT TO NEUROLOGY OFFICE/OUTPATIENT NEW HIGH MDM 60 MINUTES Rianna Shea MD [address] [place] [address] Referral ID Status Reason Start Date Expiration Date V isits Requested Visits Authorized [id number] Closed PCP Requested Referral 12/02/2023 12/01/2024 1 1 Reason Onset Date Comments Weight Management 04/10/2024 Reason Comments Weight Management Reason Comments New Patient Evaluation Specialty Diagnoses / Procedures Referred By Contac t Referred To Contact Neurology Diagnoses Stroke-like symptoms Procedures CONSULT TO NEUROLOGY OFFICE[facility]PAT[facility] Manda Mercado MD [address] [place] [address] Referral ID Status Reason Start Date Expiration Date V isits Requested Visits Authorized [id number] Closed PCP Requested Referral 11/04/2023 11/03/2024 1 1 Reason Comments Appointment Specialty Diagnoses / Procedures Referred By Contac t Referred To Contact Diagnoses 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 Procedures CONSULT TO MEDICAL GENETICS - GENERAL OFFICE/OUTPATIENT [facility] 60 MINUTES MEDICAL GENETICS COUNSELING EACH 30 [place] [address] [place] [address] [address] Referral ID Status Reason Start Date Expiration Date Visits Requested Visits Authorized [id number] Pending Review PCP Requested Referral Auto-Generate d Referral 02/02/2024 02/01/2025 1 1 Reason Comments hemiplegic migraine Reason Comments Medication Problem Reason Comments Weight Management Reason Onset Date Comments Refill Request 01/31/2025 Reason Comments Hematuria Hematuria, pain with urination x today Reason Comments Medication Question Reason Onset Date Comments Refill Request 03/26/2025 Reason Comments New Patient Specialty Diagnoses / Procedures Referred By Contac t Referred To Contact Neurology Diagnoses POTS (postural orthostatic tachycardia syndrome) Palpitations Procedures OFFICE/OUTPATIENT [facility] 60 MINUTES Dangelo Lee MD [address] [place] [address] Phone: tel: fax:[phone] Referral ID Status Reason Start Date Expiration Date V isits Requested Visits Authorized [id number] Closed PCP Requested Referral 03/12/2025 03/12/2026 1 1 Reason Comments New Patient Seizures Specialty Diagnoses / Procedures Referred By Contac t Referred To Contact Neurology Diagnoses Transient loss of consciousness Procedures OFFICE/OUTPATIENT [facility] 60 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[place], 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[employer] [address] [place] [address] Phone: tel: fax: Referral ID Status Reason Start Date Expiration Date V isits Requested Visits Authorized [id number] Closed PCP Requested Referral 04/08/2025 04/08/2026 1 1 Reason Onset Date Comments Refill Request 04/23/2025 Reason Comments Procedure Care Teams (unrecognized sec tion and content) Local [employer] Relationship Specialty Start Date End Date Manda Mercado MD [address] [place], [place] [address] PCP - General Family Medicine 06/28/19 [employer] Relationship Specialty Start Date End Date Manda Mercado MD [address] [place], [place] [address] PCP - General Family Medicine 06/28/19 [employer] Relationship Specialty Start Date End Date Manda Mercado MD [address] [place], [place] [id number] PCP - General Family Medicine 06/28/19 [employer] Relationship Specialty Start Date End Date Manda Mercado MD [address] [place], [place] [address] PCP - General Family Medicine 06/28/19 [employer] Relationship Specialty Start Date End Date Manda Mercado MD [address] [place], [place] [address] [phone] PCP - General Family Medicine 06/28/19 Team Status: Active Member Role Status Dates No Primary Care Physician Family Provider Active Dr. Mike Mercado MD Primary Care Provider Acti ve Team Status: Inactive Member Role Status Dates Dr. Mike Mercado MD Primary Care Provider Acti ve Dr. Erickson Smith DO Emergency Provider Active [employer] Relationship Specialty Start Date End Date Manda Mercado MD [address] [place] [address] PCP - General Family Medicine 06/28/19 Team Status: Inactive Member Role Status Dates Dr. Mike Mercado MD Primary Care Provider Acti ve Dr. Erickson Smith DO Attending Provider, Emergency P armando Active Team Status: Active Member Role Status Dates Dr. Mike Mercado MD Primary Care Provider Acti ve Dr. Nadia Cardenas MD Emergency Provider Active Dr. Ioana Griffiths MD Admit Provider, Attending Prov ider Active Team Status: Active Member Role Status Dates Dr. Mike Mercado MD Primary Care Provider Acti ve Dr. Purvi Louis MD Attending Provider Active Team Status: Active Member Role Status Dates Dr. Mike Mercado MD Primary Care Provider Acti ve Dr. Nadia Cardenas MD Emergency Provider Active Dr. Ioana Griffiths MD Admit Provider, Other Provider Active Kristin De Paz MD Other Provider Active Dr. Guero Stanford MD Other Provider Active Yesi Lai MD Other Provider Active Dr. Ninoska Montes De Oca , Other Provider Active Dr. Lana Magallon MD Other Provider Active Dr. Andrei Martinez MD Other Provider Active Dr. Viry Murillo MD Other Provider Active Dr. Prudencio Prasad MD Other Provider Active Dr. Shane Cummings MD Other Provider Active Barbara Wolf MD Other Provider Active Dr. Bob Aquino MD Other Provider Active Dr. Sandee Alvarez MD Other Provider Active Dr. Andrea Landa MD Other Provider Active Dr. Robin Gamboa MD Other Provider Active Dr. Param Lai MD Other Provider Active Dr. Meghann Ramírez MD Other Provider Active Dr. Tino Gonzales MD Other Provider Active Dr. Lay Garcia MD Other Provider Active Michela Werner MD Other Provider Active Dr. Leilani Reece MD Attending Provider, Other Prov ider Active Dr. Milton Becker MD Other Provider Active Dr. Jagdish Duenas MD Other Provider Active Dr. Isaac Hernández , Other Provider Active Dr. Garth Souza MD Other Provider Active Dr. Chacha Rosas MD Other Provider Active Dr. Adi Lau MD Other Provider Active Dr. Lisseth Brock MD Other Provider Active Dr. Inderjit Miller MD Other Provider Active Dr. Sven Castillo MD Other Provider Active Dr. Mark Cox MD Other Provider Active Dr. Buck Bates MD Other Provider Active Dr. Omar Messer MD Other Provider Active Dr. Johnathan Hutchison MD Other Provider Active Angelique Henao CLINICAL PSYCHIATRIST, CLINICAL PSYCHIATRIST-C Other Provider Active Team Status: Active Member Role Status Dates Dr. Mike Mercado MD Primary Care Provider Acti ve Dr. Nadia Cardenas MD Emergency Provider Active Dr. Ioana Griffiths MD Admit Provider, Attending Provider, Other Provider Active Kristin De Paz MD Other Provider Active Dr. Guero Stanford MD Other Provider Active Yesi Lai MD Other Provider Active Dr. Ninoska Montes De Oca , Other Provider Active Dr. Lana Magallon MD Other Provider Active Dr. Andrei Martinez MD Other Provider Active Dr. Viry Murillo MD Other Provider Active Dr. Prudencio Prasad MD Other Provider Active Dr. Shane Cummings MD Other Provider Active Barbara Wolf MD Other Provider Active Dr. Bob Aquino MD Other Provider Active Dr. Sandee Alvarez MD Other Provider Active Dr. Andrea Landa MD Other Provider Active Dr. Robin Gamboa MD Other Provider Active Dr. Param Lai MD Other Provider Active Dr. Meghann Ramírez MD Other Provider Active Dr. Tino Gonzales MD Other Provider Active Dr. Lay Garcia MD Other Provider Active Michela Werner MD Other Provider Active Dr. Leilani Reece MD Other Provider Active Dr. Milotn Becker MD Other Provider Active Dr. Jagdish Duenas MD Other Provider Active Dr. Isaac Hernández DO Other Provider Active Dr. Garth Souza MD Other Provider Active Dr. Chacha Rosas MD Other Provider Active Dr. Adi Lau MD Other Provider Active Dr. Lisseth Brock MD Other Provider Active Dr. Inderjit Miller MD Other Provider Active Dr. Sven Castillo MD Other Provider Active Dr. Mark Cox MD Other Provider Active Dr. Buck Bates MD Other Provider Active Dr. Omar Messer MD Other Provider Active Dr. Johnathan Hutchison MD Other Provider Active Angelique Henao CLINICAL PSYCHIATRIST, CLINICAL PSYCHIATRIST-C Other Provider Active Team Status: Active Member Role Status Dates Dr. Mike Mercado MD Primary Care Provider Acti ve Dr. Dante Christensen MD Attending Provider Active Team Status: Inactive Member Role Status Dates Dr. Mike Mercado MD Primary Care Provider Acti ve Dr. Nadia Cardenas MD Emergency Provider Active Dr. Ioana Griffiths MD Admit Provider, Other Provider Active Kristin De Paz MD Other Provider Active Dr. Guero Stanford MD Other Provider Active Yesi Lai MD Other Provider Active Dr. Ninoska Montes De Oca , Other Provider Active Dr. Lana Magallon MD Other Provider Active Dr. Andrei Martinez MD Other Provider Active Dr. Viry Murillo MD Other Provider Active Dr. Prudencio Prasad MD Other Provider Active Dr. Shane Cummings MD Other Provider Active Barbara Wolf MD Other Provider Active Dr. Bob Aquino MD Other Provider Active Dr. Sandee Alvarez MD Other Provider Active Dr. Andrea Landa MD Other Provider Active Dr. Robin Gamboa MD Other Provider Active Dr. Param Lai MD Other Provider Active Dr. Meghann Ramírez MD Other Provider Active Dr. Tino Gonzales MD Other Provider Active Dr. Lay Garcia MD Other Provider Active Michela Werner MD Other Provider Active Dr. Milton Becker MD Other Provider Active Dr. Jagdish Duenas MD Other Provider Active Dr. Isaac Hernández , Other Provider Active Dr. Garth Souza MD Other Provider Active Dr. Chacha Rosas MD Other Provider Active Dr. Adi Lau MD Other Provider Active Dr. Lisseth rBock MD Other Provider Active Dr. Inderjti Miller MD Other Provider Active Dr. Sven Castillo MD Other Provider Active Dr. Mark Cox MD Other Provider Active Dr. Buck Bates MD Other Provider Active Dr. Omar Messer MD Other Provider Active Dr. Johnathan Hutchison MD Other Provider Active Angelique Henao CLINICAL PSYCHIATRIST, CLINICAL PSYCHIATRIST-C Other Provider Active Dr. Tl Tomas DO Attending Provider Active Dr. Leilani Reece MD Other Provider Active [employer] Relationship Specialty Start Date End Date Manda Mercado MD [address] [place] [address] PCP - General Family Medicine 06/28/19 [employer] Relationship Specialty Start Date End Date Manda Mercado MD [address] [facility] [place] [address] PCP - General Family Medicine 06/28/19 [employer] Relationship Specialty Start Date End Date Manda Mercado MD [address] [facility] [place] [address] PCP - General Family Medicine 06/28/19 [employer] Relationship Specialty Start Date End Date Manda Mercado MD [address] [facility] [place] [address] PCP - General Family Medicine 06/28/19 [employer] Relationship Specialty Start Date End Date Manda Mercado MD [address] [facility] [place] [address] PCP - General Family Medicine 06/28/19 [employer] Relationship Specialty Start Date End Date Manda Mercado MD [address] [facility] [place] [address] PCP - General Family Medicine 06/28/19 [employer] Relationship Specialty Start Date End Date Manda Mercado MD [address] [facility] [place] [address] PCP - General Family Medicine 06/28/19 Team Status: Active Member Role Status Dates Dr. Mike Mercado MD Primary Care Provider Acti ve Dr. Dante Christensen MD Attending Provider Active Dr. Ioana Griffiths MD Referring Provider Active Team Status: Active Member Role Status Dates Dr. Mike Mercado MD Primary Care Provider Acti ve Dr. Elyse Weiss , DO Emergency Provider Active Dr. Tl Tomas , DO Other Provider Active Dr. Nafisa Dawkins MD Other Provider Active Dr. Nafisa Martinez MD Other Provider Active Dr. Earnestine Cruz MD Other Provider Active Dr. Ioana Griffiths MD Other Provider Active Dr. Javier Ventura , DO Other Provider Active Dr. Javier Lewis MD Other Provider Active Maverick Miller MD Other Provider Active Dr. Erickson Kramer , DO Other Provider Active Dr. Maryan Gamez MD Other Provider Active Dr. Ramón Cortez MD Other Provider Active Dr. Delaney Garcia , DO Other Provider Active Dr. Jose Ruht , DO Other Provider Active Dr. Leilani Reece MD Other Provider Active Dr. Ricardo Hassan MD Other Provider Active Dr. Sagar Ramirez MD Other Provider Active Dr. Nilo Siddiqui MD Other Provider Active Dr. Jeanie Hallman MD Other Provider Active Dr. Maxwell Dennis MD Other Provider Active Lisy Guevara CLINICAL PSYCHIATRIST, CLINICAL PSYCHIATRIST-C Other Provider Active Rich CHARLES Other Provider Active Dr. Abiodun He MD Attending Provider Active Team Status: Active Member Role Status Dates Dr. Mike Mercado MD Primary Care Provider Acti ve Dr. Elyse Weiss , DO Emergency Provider Active Dr. Tl Tomas , DO Other Provider Active Dr. Nafisa Dawkins MD Other Provider Active Dr. Nafisa Martinez MD Other Provider Active Dr. Earnestine Cruz MD Other Provider Active Dr. Ioana Griffiths MD Other Provider Active Dr. Javier Ventura , DO Other Provider Active Dr. Javier Lewis MD Other Provider Active Maverick Miller MD Other Provider Active Dr. Erickson Kramer , DO Other Provider Active Dr. Maryan Gamez MD Other Provider Active Dr. Ramón Cortez MD Other Provider Active Dr. Delaney Garcia , DO Other Provider Active Dr. Jose Ruth , DO Other Provider Active Dr. Leilani Reece MD Other Provider Active Dr. Ricardo Hassan MD Other Provider Active Dr. Sagar Ramirez MD Other Provider Active Dr. Nilo Siddiqui MD Other Provider Active Dr. Jeanie Hallman MD Other Provider Active Dr. Maxwell Dennis MD Other Provider Active Lisy Guevara CLINICAL PSYCHIATRIST, CLINICAL PSYCHIATRIST-C Other Provider Active Rich CHARLES Other Provider Active Dr. Abiodun He MD Admit Provider, Attending Provi jeana Active Team Status: Inactive Member Role Status Dates Dr. Mike Mercado MD Primary Care Provider Acti ve Dr. Nadia Cardenas MD Attending Provider, Emergency Provider Active Team Status: Active Member Role Status Dates Dr. Mike Mercado MD Primary Care Provider Acti ve Dr. Elyse Weiss , DO Emergency Provider Active Dr. Tl Tomas , DO Other Provider Active Dr. Nafisa Dawkins MD Other Provider Active Dr. Nafisa Martinez MD Other Provider Active Dr. Earnestine Cruz MD Other Provider Active Dr. Ioana Griffiths MD Other Provider Active Dr. Javier Ventura , DO Other Provider Active Dr. Javier Lewis MD Other Provider Active Maverick Miller MD Other Provider Active Dr. Erickson Kramer , DO Other Provider Active Dr. Maryan Gamez MD Other Provider Active Dr. Ramón Cortez MD Other Provider Active Dr. Delaney Garcia , DO Other Provider Active Dr. Jose Ruth , DO Other Provider Active Dr. Leilani Reece MD Other Provider Active Dr. Ricardo Hassan MD Attending Provider, Other Provider Active Dr. Sagar Ramirez MD Other Provider Active Dr. Nilo Siddiqui MD Other Provider Active Dr. Jeanie Hallman MD Other Provider Active Dr. Maxwell Dennis MD Other Provider Active Lisy Guevara CLINICAL PSYCHIATRIST, CLINICAL PSYCHIATRIST-C Other Provider Active Rich CHARLES Other Provider Active Dr. Abiodun He MD Admit Provider, Other Provider Active Team Status: Active Member Role Status Dates Dr. Mike Mercado MD Primary Care Provider Acti ve Dr. Elyse Weiss , DO Emergency Provider Active Dr. Tl Tomas , DO Other Provider Active Dr. Nafisa Dawkins MD Other Provider Active Dr. Nafisa Martinez MD Other Provider Active Dr. Earnestine Cruz MD Other Provider Active Dr. Ioana Griffiths MD Other Provider Active Dr. Javier Ventura , DO Other Provider Active Dr. Javier Lewis MD Other Provider Active Maverick Miller MD Other Provider Active Dr. Erickson Kramer , DO Other Provider Active Dr. Maryan Gamez MD Other Provider Active Dr. Ramón Cortez MD Other Provider Active Dr. Delaney Garcia , DO Other Provider Active Dr. Jose Ruth , DO Other Provider Active Dr. Leilani Reece MD Other Provider Active Dr. Ricardo Hassan MD Other Provider Active Dr. Sagar Ramirez MD Other Provider Active Dr. Nilo Siddiqui MD Other Provider Active Dr. Jeanie Hallman MD Other Provider Active Dr. Maxwell Dennis MD Other Provider Active Lisy Guevara CLINICAL PSYCHIATRIST, CLINICAL PSYCHIATRIST-C Other Provider Active Rich CHARLES Other Provider Active Dr. Abiodun He MD Admit Provider, Other Provider Active Maru Liu PA, PA-C Attending Provider Active Team Status: Active Member Role Status Dates Dr. Mike Mercado MD Primary Care Provider Acti ve Dr. Elyse Weiss , DO Emergency Provider Active Dr. Tl Tomas , DO Attending Provider, Other Provider Active Dr. Nafisa Dawkins MD Other Provider Active Dr. Nafisa Martinez MD Other Provider Active Dr. Earnestine Cruz MD Other Provider Active Dr. Ioana Griffiths MD Other Provider Active Dr. Javier Ventura , DO Other Provider Active Dr. Javier Lewis MD Other Provider Active Maverick Miller MD Other Provider Active Dr. Erickson Kramer , DO Other Provider Active Dr. Maryan Gamez MD Other Provider Active Dr. Ramón Cortez MD Other Provider Active Dr. Delaney Garcia , DO Other Provider Active Dr. Jose Ruth , DO Other Provider Active Dr. Leilani Reece MD Other Provider Active Dr. Ricardo Hassan MD Other Provider Active Dr. Sagar Ramirez MD Other Provider Active Dr. Nilo Siddiqui MD Other Provider Active Dr. Jeanie Hallman MD Other Provider Active Dr. Maxwell Dennis MD Other Provider Active Lisy Ismael CLINICAL PSYCHIATRIST, CLINICAL PSYCHIATRIST-C Other Provider Active Rich CHARLES Other Provider Active Dr. Abiodun He MD Admit Provider, Other Provider Active Team Status: Inactive Member Role Status Dates Dr. Mike Mercado MD Primary Care Provider Acti ve Dr. Elyse Weiss , DO Emergency Provider Active Dr. Tl Tomas , DO Other Provider Active Dr. Nafisa Dawkins MD Other Provider Active Dr. Nafisa Martinez MD Other Provider Active Dr. Earnestine Cruz MD Other Provider Active Dr. Ioana Griffiths MD Other Provider Active Dr. Javier Ventura , DO Other Provider Active Dr. Javier Lewis MD Other Provider Active Maverick Miller MD Other Provider Active Dr. Erickson Kramer , DO Other Provider Active Dr. Marayn Gamez MD Other Provider Active Dr. Ramón Cortez MD Other Provider Active Dr. Delaney Garcia , DO Other Provider Active Dr. Jose Ruth , DO Other Provider Active Dr. Leilani Reece MD Other Provider Active Dr. Ricardo Hassan MD Other Provider Active Dr. Sagar Ramirez MD Other Provider Active Dr. Nilo Siddiqui MD Other Provider Active Dr. Jeanie Hallman MD Other Provider Active Dr. Maxwell Dennis MD Other Provider Active Lisy Guevara CLINICAL PSYCHIATRIST, CLINICAL PSYCHIATRIST-C Other Provider Active Rich CHARLES Other Provider Active Dr. Abiodun He MD Admit Provider, Attending Provi jeana Active [employer] Relationship Specialty Start Date End Date Manda Mercado MD [address] [place] [address] PCP - General Family Medicine 06/28/19 [employer] Relationship Specialty Start Date End Date Manda Mercado MD [address] [place], [place] [id number] PCP - General Family Medicine 06/28/19 Team Status: Active Member Role Status Dates Dr. Mike Mercado MD Primary Care Provider Acti ve Dr. Elyse Weiss , DO Emergency Provider Active Dr. Tl Tomas , DO Other Provider Active Dr. Nafisa Dawkins MD Other Provider Active Dr. Nafisa Martinez MD Other Provider Active Dr. Earnestine Cruz MD Other Provider Active Dr. Ioana Griffiths MD Other Provider Active Dr. Javier Ventura , DO Other Provider Active Dr. Javier Lewis MD Other Provider Active Maverick Miller MD Other Provider Active Dr. Erickson Kramer , DO Other Provider Active Dr. Maryan Gamez MD Other Provider Active Dr. Ramón Cortez MD Other Provider Active Dr. Delaney Garcia , DO Other Provider Active Dr. Jose Ruth , DO Other Provider Active Dr. eLilani Reece MD Other Provider Active Dr. Ricardo Hassan MD Other Provider Active Dr. Sagar Ramirez MD Other Provider Active Dr. Nilo Siddiqui MD Other Provider Active Dr. Jeanie Hallman MD Other Provider Active Dr. Maxwell Dennis MD Other Provider Active Lisy Guevara CLINICAL PSYCHIATRIST, CLINICAL PSYCHIATRIST-C Other Provider Active Rich CHARLES Other Provider Active Dr. Abiodun He MD Admit Provider, A ttending Provider, Other Provider Active Team Status: Inactive Member Role Status Dates Dr. Mike Mercado MD Primary Care Provider, Ref erring Provider Active Maru CHARLES PA-C Attending Provider Active Team Status: Inactive Member Role Status Dates Dr. Mike Mercado MD Primary Care Provider Acti ve Maru CHARLES PA-C Attending Provider, Referring Provider Active [employer] Relationship Specialty Start Date End Date Manda Mercado MD [address] [place], [place] [id number] PCP - General Family Medicine 06/28/19 [employer] Relationship Specialty Start Date End Date Manda Mercado MD [address] [place], [place] [id number] PCP - General Family Medicine 06/28/19 [employer] Relationship Specialty Start Date End Date Manda Mercado MD [address] [place], [place] [id number] PCP - General Family Medicine 06/28/19 [employer] Driver Relationship Specialty Start Date End Date Manda Mercado MD [address] [facility] [place] [address] PCP - General Family Medicine 06/28/19 [employer] Driver Relationship Specialty Start Date End Date Manda Mercado MD [address] [facility] [place] [address] PCP - General Family Medicine 06/28/19 [employer] Relationship Specialty Start Date End Date Manda Mercado MD [address] [place] [address] PCP - General Family Medicine 06/28/19 [employer] Relationship Specialty Start Date End Date Manda Mercado MD [address] [facility] [place] [address] PCP - General Family Medicine 06/28/19 [employer] Relationship Specialty Start Date End Date Manda Mercado MD [address] [facility] [place] [address] PCP - General Family Medicine 06/28/19 PodlogarYaritza APRN.SECURITY SOLUTIONS ARCHITECT [address] [facility] [place] [address] Geospatial Program Management Officer Family Medicine 08/04/24 [employer] Relationship Specialty Start Date End Date Manda Mercado MD [address] [facility] [place] [address] PCP - General Family Medicine 06/28/19 PodlogarYaritza, 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SECURITY SOLUTIONS ARCHITECT [address] [facility] [place] [address] Geospatial Program Management [facility] 08/04/24 [employer] Relationship Specialty Start Date End Date Manda Mercado MD [address] [place], [place] [address] PCP - General Family Medicine 06/28/19 Podlogar, TANIYA VigilN.SECURITY SOLUTIONS ARCHITECT [address] [place], [place] [id number] [facility] 08/04/24 [employer] Driver Relationship Specialty Start Date End Date Manda Mercado MD [address] [place], [place] [address] PCP - General Family Medicine 06/28/19 Podlogar, NABILA Vigil.SECURITY SOLUTIONS ARCHITECT [address] [place] [address] Geospatial Program Management [facility] 08/04/24 [employer] Driver Relationship Specialty Start Date End Date Dangelo Lee MD [address] [place] [address] PCP - General Internal Medicine 09/28/24 Podlogar, Yaritza 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SECURITY SOLUTIONS ARCHITECT [address] [place] [address] Geospatial Program Management [facility] 08/04/24 [employer] Relationship Specialty Start Date End Date Dangelo Lee MD [address] [place], [place] [address] PCP - General Internal Medicine 09/28/24 Podlogar, Yaritza, 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SECURITY SOLUTIONS ARCHITECT [address] [place] [address] [facility] 08/04/24 [employer] Relationship Specialty Start Date End Date Dangelo Lee MD [address] [place] [address] PCP - General Internal Medicine 09/28/24 Podlogar, Yaritza, 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SECURITY SOLUTIONS ARCHITECT [address] [facility] [place] [address] [facility] 08/04/24 [employer] Driver Relationship Specialty Start Date End Date Dangelo Lee MD [address] [place] [address] PCP - General Internal Medicine 09/28/24 Podlogar, Yaritza, 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SECURITY SOLUTIONS ARCHITECT [address] [facility] [place] [address] Geospatial Program Management [facility] 08/04/24 [employer]ated [employer] Driver Relationship Specialty Start Date End Date Dangelo Lee MD [address] [place] [address] PCP - General Internal Medicine 09/28/24 Podlogar, Yaritza, 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SECURITY SOLUTIONS ARCHITECT [address] [facility] [place] [address] [facility] 08/04/24 [employer] Driver Relationship Specialty Start Date End Date Dangelo Lee MD [address] [place] [address] PCP - General Internal Medicine 09/28/24 Podlogar, Yaritza, 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SECURITY SOLUTIONS ARCHITECT [address] [facility] [place] [address] [facility] 08/04/24 [employer] Driver Relationship Specialty Start Date End Date Dangelo Lee MD [address] [place] [address] PCP - General Internal Medicine 09/28/24 Podlogar, Yaritza, 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SECURITY SOLUTIONS ARCHITECT [address] [facility] [place] [address] [facility] 08/04/24 [employer] Driver Relationship Specialty Start Date End Date Dangelo Lee MD [address] [place] [address] PCP - General Internal Medicine 09/28/24 Podlogar, Yaritza, 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SECURITY SOLUTIONS ARCHITECT [address] [facility] [place] [address] Geospatial Program Management [facility] 08/04/24 [employer] Driver Relationship Specialty Start Date End Date Dangelo Lee MD [address] [place] [address] PCP - General Internal Medicine 09/28/24 Podlogar, Yaritza, 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SECURITY SOLUTIONS ARCHITECT [address] [facility] [place] [address] [facility] 08/04/24 [employer] Driver Relationship Specialty Start Date End Date Dangelo Lee MD [address] [place] [address] PCP - General Internal Medicine 09/28/24 Podlogar, Yaritza, 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SECURITY SOLUTIONS ARCHITECT [address] [facility] [place] [address] Geospatial Program Management Officer Family [facility] 08/04/24 [employer] Relationship Specialty Start Date End Date Dangelo Lee MD [address] [place], [place] [id number] PCP - General Internal Medicine 09/28/24 PodlogarYaritza APRN.SECURITY SOLUTIONS ARCHITECT [address] [place] [address] Geospatial Program Management Officer [facility] 08/04/24 [employer] Relationship Specialty Start Date End Date Dangelo Lee MD [address] [place] [address] PCP - General Internal Medicine 09/28/24 PodlogarYaritza APRN.SECURITY SOLUTIONS ARCHITECT [address] [place] [address] Geospatial Program Management Officer [facility] 08/04/24 [employer] Relationship Specialty Start Date End Date Dangelo Lee MD [address] [place] [address] PCP - General Internal Medicine 09/28/24 Goals (unrecognized section and content) Goals may be documented in a n alternate sectionGoals may be documented in an alternate section No data available for this section INFORMATION SOURCE (unrecogn ized section and content) DATE CREATED AUTHOR 12/18/2023 [facility] ([place]) DATE CREATED AUTHOR AUTHOR'S ORGANIZ ATION 12/30/2023 [facility] DATE CREATED AUTHOR AUTHOR'S ORGANIZ ATION 01/30/2024 [facility] DATE CREATED AUTHOR AUTHOR'S ORGANIZ ATION 05/12/2025 [facility] DATE CREATED AUTHOR AUTHOR'S ORGANIZ ATION 06/21/2025 [facility] FOR RECORDS PERTAINING TO PATIENTS WHO ARE [...] BE BASED ON THE PRIMARY CLINICAL RECORDS. [facility]. provides no warranty or guarantee of the accuracy or completeness of information in this document.
[2025-07-17] MEDS: DiphenhydrAMINE 50 MG/ML Syringe IV (00:06)
[2025-07-17] MEDS: 0.9% Normal Saline (1000mL) 1,000 ML 999 ML IV (00:06)
[2025-07-17] MEDS: Ketorolac 30 MG/ML Syringe IV (00:06)
[2025-07-17 00:20] LABS: Hematocrit 43.1 % (37-47); Hemoglobin 15.2 g/dL (12.0-15.0); Immature Granulocytes Count 0.020 X10^3/uL (0.0-0.0); Mean Corp Hgb Conc 35.3 g/dL (32-36); Mean Corpuscular Volume 85.3 fL (81-99); Mean Platelet Vol. 9.4 fl (6.2-12.0); NRBC Flagged by Analyzer 0 % (0-5); Platelet Count 269 K/mm3 (150-450); RBC Distribution Width CV 12.0 % (11.6-14.6); RBC Distribution Width SD 37.2 fl (35.1-43.9); Red Blood Count 5.05 M/mm3 (4.2-5.4); White Blood Count 7.3 K/mm3 (4.4-11.0)
[2025-07-17 00:29] VITALS: O2SAT 80
[2025-07-17 00:32] VITALS: O2SAT 98
[2025-07-17 00:42] LABS: Anion Gap 15 (5-15); BUN 13 mg/dL (4-19); BUN/Creat Ratio 14.7 RATIO (10-20); Calcium,Total 9.2 mg/dL (7.6-11.0); Carbon Dioxide 19.4 mmol/L (21.0-32.0); Chloride 105 mmol/L (98-108); Estimated Creatinine Clearance 78.94 ml/min (50-250); Glucose 131 mg/dL (70-99); Magnesium 2.2 mg/dL (1.5-2.2); Potassium 3.0 mmol/L (3.3-5.1)
--- NOTE | 2025-07-17 01:11 | EX.ED.DYSGE1 ---
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 She states that she follows with a neurologist and takes topiramate for migraine symptoms. She states she awoke this morning with a headache. She states that there has been no recent trauma or sick symptoms. She states it felt similar nature to her previous migraine. She states she took her topiramate as directed but there was no resolution of the headache. She states it has persisted and then worsened this evening and secondary to her home medication is not helping she presents for evaluation. [facility] Medical History (Updated 07/17/25 @ 03:[address] Clarence Venegas, DO) Non-epileptic convulsion Wears glasses Post-menopausal Depression Anxiety Bite by animal Hemiplegic migraine Blackout History of IBS Non-smoker History of Holter monitoring History of echocardiogram Family history of colon cancer Personal history of colonic polyps IBS (irritable bowel syndrome) Migraine Back problem GERD (gastroesophageal reflux disease) Fatty liver Bilateral tinnitus Gallstones Morbid obesity Fibromyalgia Home Medications ?Medication ?Instructions ?Recorded ?Last Taken ?Type polyethylene glycol 3350 17 4 g PO DAILY 01/10/24 Unknown History gram/dose oral powder (Miralax) psyllium husk 0.4 gram capsule 0.4 g PO DAILY 01/10/24 11/10/24 History (Metamucil) cholecalciferol (vitamin D3) 10 4,000 unit PO DAILY 09/03/24 11/10/24 History mcg (400 unit) capsule topiramate 25 mg tablet 50 mg PO BID Migraines 09/03/24 07/16/25 History loratadine 10 mg tablet 10 mg PO QDAY 10/02/24 Unknown History multivitamin 1 tab PO QDAY 10/02/24 11/10/24 History buspirone 7.5 mg tablet 7.5 mg PO BID #180 tabs 03/13/25 Unknown Rx desvenlafaxine succinate 100 mg 100 mg PO DAILY #90 tabs 03/13/25 Unknown Rx tablet,extended release 24 hr hydroxyzine HCl 25 mg tablet 12.5 mg (1/2 x 25 mg) PO BID #90 03/13/25 Unknown Rx tabs pantoprazole 40 mg tablet,delayed 40 mg PO DAILY #90 tabs 07/08/25 Unknown Rx release (Protonix) tirzepatide (weight loss) 7.5 7.5 mg subcut QWEEK 07/16/25 Unknown History mg/0.5 mL subcutaneous pen injector (Zepbound) potassium chloride 10 mEq 10 meq PO DAILY 7 days #7 caps 07/17/25 Unknown Rx capsule,extended release Allergy/AdvReac Type Severity Reaction Status Date / Time egg Allergy Other Verified 07/16/25 23:35 lactose (lactose intolerant) Allergy Constipatio Verified 07/16/25 23:35 n Food Allergies: Uncoded AdvReac BANANA, Verified 07/16/25 23:35 THROAT SWELLS milk AdvReac Constipatio Verified 07/16/25 23:35 n prednisone AdvReac Nausea/Vom/ Verified 07/16/25 23:35 Diarrhea Family History Mother Age: 67 Rheumatoid arthritis Hypertension Osteoporosis Thyroid disorder Anemia Anxiety Father Age: 71 Hypertension Hyperlipemia Grandmother VTE (venous thromboembolism) Maternal grandmother. Colon cancer at 59yrs Blood coagulation disorder Age related osteoporosis Rheumatoid arthritis Brother Age: 44 VTE (venous thromboembolism) CVA (cerebral vascular accident) Hypertension Rheumatoid arthritis Grandfather Alcoholism Grandmother Diabetes Heart disease Grandfather Diabetes Heart disease Aunt Schizophrenia Surgical History History of hysterectomy Hx of colonoscopy S/P cholecystectomy S/P tonsillectomy and adenoidectomy H/O tubal ligation H/O: hysterectomy Social History adopted: No household members: spouse, family and children current occupational status: unemployed pets and animals: Yes pets and animals: cat(s), dog(s), fish and farm animals sexually active: Yes Smoking Status: Never smoker Electronic Cigarette Use: not used alcohol intake: current alcohol intake frequency: holidays/special occasions only substance use type: does not use diet: lactose free and other caffeine: Yes (1) Type: coffee frequency: does not exercise seatbelt use: always do you feel safe at home: Yes ROS ROS ED Constitutional Constitutional ED: Denies chills or fever(s) Eyes Eyes: Denies blurry vision or change in vision ENT ENT ED: Denies rhinorrhea or sore throat Cardiovascular Cardiovascular: Denies chest pain Respiratory/Chest Respiratory/Chest: Denies cough or dyspnea Gastrointestinal Gastrointestinal: Denies abdominal pain, diarrhea, nausea or vomiting Genitourinary Genitourinary ED: Denies dysuria Musculoskeletal Musculoskeletal: Denies back pain, myalgias or neck pain Integumentary Denies rash Neurologic Neurologic: Reports headache(s) and weakness; Denies paresthesias Psychiatric Psychiatric: Reports anxiety and depression Hematologic/Lymphatic Hematologic/Lymphatic: Denies easy bleeding or easy bruising EXAM Physical Exam Const Vital Signs: 07/16/25 23:35 07/16/25 23:51 07/17/25 00:00 Temperature 96.4 F L Temperature Source Temporal Pulse Rate 103 H 87 89 Respiratory Rate 18 18 16 Blood Pressure 150/105 H 102/42 L 119/80 Blood Pressure Mean 120 62 93 Pulse Ox 99 100 100 Oxygen Delivery Method Room Air Room Air Room Air Oxygen Flow Rate (L/min) 07/17/25 00:29 07/17/25 00:32 07/17/25 01:23 Temperature 96.4 F L Temperature Source Pulse Rate 93 Respiratory Rate 16 Blood Pressure 117/68 Blood Pressure Mean 84 Pulse Ox 80 98 97 Oxygen Delivery Method Nasal Cannula Oxygen Flow Rate (L/min) 1.5 Positive well nourished, well developed and obese General Appearance ED: well developed; Negative for pallor Nutritional Appearance: obese HEENT HEENT Narrative: Normocephalic atraumatic No tongue or lip swelling no oral lesions no airway edema or compromise; no secondary findings in the posterior pharynx to suggest infection Eyes PERRL and EOMs intact bilaterally General Eye ED: Negative for scleral icterus Neck supple Neck Narrative: No nuchal rigidity or meningeal signs noted Resp normal respiratory effort and clear to auscultation bilaterally Cardio regular rate and regular rhythm Rate: other Other Details: Radial and carotid pulses are equal and symmetric GI normal to inspection, nondistended, normoactive bowel sounds, non-tender, non-distended and no masses GI Narrative: No voluntary guarding or rigidity or pulsatile mass Auscultation: normoactive bowel sounds Palpation: soft Extremity normal to inspection Neuro oriented x3 and no sensory deficits noted Neuro Narrative: GCS of 15 Patient has a left-sided facial droop which she states is typically present with her headaches. She received an NIH stroke scale score 1 for this. Otherwise the remainder cranial nerves are intact and normal No pronator drift or dysmetria or truncal ataxia Sensorium / Orientation: alert Motor Exam: strength 5/5 throughout Psych Mood & Affect: anxious Skin no rashes or lesions noted and no wounds General Skin Exam: Negative for jaundice or pallor MDM MDM MDM Narrative Medical decision making narrative: Patient arrived to the ER with complaint of headache that been present throughout the entire day. She has a past medical history of headaches and follows with neurology regarding them. She does have left-sided facial droop but states that this is common with her headaches. She denies any recent sick symptoms such as fevers chills congestion cough or sore throat. Therefore at this time as the patient reports the facial droop is recurrent with her headache and the remainder of her neurologic exam is normal I do not feel that this is a stroke but symptoms consistent with her history of hemiplegic migraines. I will check basic laboratory studies to ensure that her headache and feeling unwell is not due to acute kidney injury or electrolyte abnormality. Labs revealed potassium slightly low at 3 but otherwise no clinically significant findings. As I have low concern for spontaneous subarachnoid or subdural hemorrhage I do not feel the need for head CT. As symptoms do not correlate with meningitis do not feel the need for lumbar puncture. She was given IV fluids Toradol Benadryl and Reglan and had complete resolution of her headache. With resolution of the headache the facial droop resolved as well which does correlate with hemiplegic migraine. Therefore at this time patient's vitals are stable her neurologic exam has returned to baseline and overall workup reveals no clinically significant findings other than her potassium which is slightly low at 3 but not to evaluate that requires admission. Therefore patient is otherwise safe for discharge History & Record Review Discussion w/independent historian: Patient and Family Lab Data Attestation: I reviewed the patient's lab results. Labs: Laboratory Results - last 24 hr 07/17/25 00:05 WBC 7.3 RBC 5.05 Hgb 15.2 H Hct 43.1 MCV 85.3 MCH 30.1 MCHC 35.3 RDW Std Deviation 37.2 RDW Coeff of Rebecca 12.0 Plt Count 269 MPV 9.4 Immature Gran % (Auto) 0.300 Neut % (Auto) 48.9 Lymph % (Auto) 40.5 [place] % (Auto) 9.0 Eos % (Auto) 1.0 Baso % (Auto) 0.3 Absolute Neuts (auto) 3.6 Absolute Lymphs (auto) 2.97 Nucleated RBC % 0 Sodium 140 Potassium 3.0 L Chloride 105 Carbon Dioxide 19.4 L Anion Gap 15 BUN 13 Creatinine 0.88 Estim Creat Clear Calc 78.94 Est GFR (MDRD) Non-Af 81 BUN/Creatinine Ratio 14.7 Glucose 131 H Calcium 9.2 Magnesium 2.2 Discharge Plan Triage Chief Complaint: Headache ED Provider: Clarence Venegas Dx/Rx/DC Orders Clinical Impression: Intractable migraine, Hypokalemia, Anxiety and depression Instructions: Hypokalemia Dc, ED Headache Unspecified, ED, Migraine (Classical) Prescriptions: New potassium chloride 10 mEq capsule, extended release 10 meq PO DAILY 7 Days Qty: 7 0RF No Action psyllium husk [Metamucil] 0.4 gram capsule 0.4 g PO DAILY polyethylene glycol 3350 [Miralax] 17 gram/dose powder 4 g PO DAILY cholecalciferol (vitamin D3) 10 mcg (400 unit) capsule 4,000 unit PO DAILY topiramate 25 mg tablet 50 mg PO BID Patient Comments: Dosage will be 2 tablets 2x daily on February 22. multivitamin Tablet 1 tab PO QDAY loratadine 10 mg tablet 10 mg PO QDAY buspirone 7.5 mg tablet 7.5 mg PO BID Qty: 180 1RF desvenlafaxine succinate 100 mg tablet extended release 24 hr 100 mg PO DAILY Qty: 90 1RF hydroxyzine HCl 25 mg tablet 12.5 mg PO BID Qty: 90 1RF Rx Instructions: take 0.5 tablet QAM and take 0.5 tablet QHS Zepbound 7.5 mg/0.5 mL pen injector 7.5 mg SUBCUT QWEEK Patient Comments: FRIDAYS pantoprazole [Protonix] 40 mg tablet,delayed release (DR/EC) 40 mg PO DAILY Qty: 90 0RF Primary Care Provider: Anita Lee Referrals: Anita Lee MD [Primary Care Provider, Internal Medicine] Activity Restrictions/Additional Instructions: Your workup today showed your potassium was slightly low at a value of 3. Therefore please take the prescribed potassium supplement once a day for the next 7 days to raise the value to a normal level. Follow-up with your family doctor for repeat evaluation and return to the ER should you have any further concerns Print Language: Ukrainian Disposition Disposition: Home, Self Care Discharge Date/Time: 07/17/25 01:41
[2025-07-17 01:23] VITALS: BP 117/68; PULSE 93; RESP 16; TEMP 35.8; O2SAT 97
== END 2025-07-17 01:41 | disposition home or self-care (01) ==
PROVIDERS: Emergency Provider Emergency Medicine; PCP Internal Medicine; Visit Provider Emergency Medicine
DX: G43.919 Migraine, unspecified, intractable, without status migrainosus (principal); E87.6 Hypokalemia; F32.A Depression, unspecified; Z90.710 Acquired absence of both cervix and uterus; F41.9 Anxiety disorder, unspecified; K21.9 Gastro-esophageal reflux disease without esophagitis; Z79.899 Other long term (current) drug therapy; Z90.49 Acquired absence of other specified parts of digestive tract; Z98.51 Tubal ligation status
CPT/HCPCS: 80048; 83735; 85025; 96361; 96374; 96375; 99283; A4216

== ENCOUNTER → 2025-08-26 | Outpatient (CLI) | payer OTHER, SELFPAY ==
[2025-08-26 12:34] LABS: Hematocrit 43.4 % (37-47); Hemoglobin 15.4 g/dL (12.0-15.0); Immature Granulocytes Count 0.010 X10^3/uL (0.0-0.0); Mean Corp Hgb Conc 35.5 g/dL (32-36); Mean Corpuscular Volume 86.1 fL (81-99); Mean Platelet Vol. 9.9 fl (6.2-12.0); NRBC Flagged by Analyzer 0 % (0-5); Platelet Count 313 K/mm3 (150-450); RBC Distribution Width CV 13.1 % (11.6-14.6); RBC Distribution Width SD 40.6 fl (35.1-43.9); Red Blood Count 5.04 M/mm3 (4.2-5.4); White Blood Count 6.6 K/mm3 (4.4-11.0)
[2025-08-26 13:09] LABS: AST(SGOT) 24 U/L (<=31); Alanine Aminotransfer ALT/SGPT 19 U/L (<=34); Albumin, Serum 4.2 g/dL (3.5-5.0); Alkaline Phosphatase 72 U/L (35-104); Anion Gap 11 (7-18); BUN 15 mg/dL (4-19); BUN/Creat Ratio 18.4 RATIO (10-20); CRP < 3.00 mg/L (0.0-3.0); Calcium,Total 9.0 mg/dL (7.6-11.0); Carbon Dioxide 24.1 mmol/L (20.0-29.0); Chloride 104 mmol/L (96-106); Free T3 2.3 pg/mL (2.18-3.98); Globulin 3.0 g/dL (2.2-4.2); Glucose 86 mg/dL (70-99); Magnesium 2.5 mg/dL (1.5-2.2); Potassium 3.6 mmol/L (3.5-5.1)
[2025-08-27 14:08] LABS: ANTINUCLEAR ANTIBODIES DIRECT Negative (Negative)
== END | disposition home or self-care (01) ==
LOC: LAB 11:32
PROVIDERS: PCP Internal Medicine; Referring Provider Nurse Practitioner Family; Visit Provider Nurse Practitioner Family
DX: E87.6 Hypokalemia (principal); M79.7 Fibromyalgia
CPT/HCPCS: 36415; 80053; 83735; 84439; 84443; 84481; 85025; 85652; 86038; 86140; 86225; 86235; 86431